=== PATIENT | female | born 1975 | race Caucasian/White ===

== ENCOUNTER → 2019-12-15 16:39 | Outpatient (CLI) | payer OTHER, SELFPAY ==
[2019-12-15 13:28] VITALS: BMI 25.0
[2019-12-21 15:00] LABS: HPV APTIMA, High Risk Negative (Negative)
== END ==
PROVIDERS: Obstetrics & Gynecology; Referring Provider Nurse Practitioner Women's Health; Visit Provider Nurse Practitioner Women's Health
DX: Z12.4 Encounter for screening for malignant neoplasm of cervix (principal)
CPT/HCPCS: 87624; 88175; G0145

== ENCOUNTER 2020-01-08 09:12 | Emergency (ER) | payer OTHER, SELFPAY ==
[2019-12-15 13:28] VITALS: BMI 25.0
[2020-01-08 09:12] VITALS: BP 172/92; PULSE 71; RESP 18; TEMP 36.6; O2SAT 100; BMI 23.6
--- NOTE | 2020-01-08 09:39 | RAD_ITS ---
STUDY: X-RAY - LUMBAR SPINE REASON FOR EXAM: Female, 44 years old. SEVERE LOW BACK PAIN AND INTO RIGHT LEG TECHNIQUE: 2 view(s) of the lumbar spine were obtained. COMPARISON: None FINDINGS: Normal lumbar lordosis. There is no substantial scoliosis. There is a normal alignment of the vertebrae. Normal vertebral bodies and endplates. Disc space height loss at L5-S1. The soft tissue structures are unremarkable. RAD/Lumbar Spine 2 or 3 Views IMPRESSION: Disc space height loss at L5-S1 Electronically Signed: Kel Pierce DO at 10:16 EST Tel , Service support ,
[2020-01-08] MEDS: Morphine 4 MG/ML Syringe IM (09:49)
--- NOTE | 2020-01-08 10:17 | ED.DCSUM_ITS ---
- ER Visit Summary Date of Service: 01/08/20 Chief Complaint: Back pain History of Present Illness: The patient is a 44 F who presents with back pain that began yesterday. Patient states she was doing some spray painting when her pain began. Patient states her pain is constant aching but sharp at times. Patient states her pain is worse with any movement. Patient states the pain is localized to the right lumbar lumbar area. Patient states the pain does radiate to her right hip and thigh area. Patient admits to some tingling in her right hip and thigh area. Patient denies any weakness. Patient denies any bowel or bladder changes. Patient denies any saddle anesthesia. Physical Examination: Vital signs are stable. Patient is afebrile. Patient is in no acute distress. Musculoskeletal exam reveals tenderness over the right lower lumbar paraspinal muscles. There is no midline tenderness. There is no bony crepitance or step-off. Range of motion was limited in all motions of the lumbar spine secondary to pain. Strength is 5/5 bilaterally in the lower extremities. There are no sensory deficits noted. Deep tendon reflexes are 2/4 bilaterally in the lower extremities. Test Results: X-rays of the lumbar spine were obtained. There are 2 views. On my interpretation, there is no acute fracture. There is no spondylolisthesis noted. Disc spaces were maintained. There is some scoliosis of the lumbar spine that is concave right. Radiologist also interpreted the x-rays and agrees. Emergency Department Course and Treatment: Patient was given injection of morphine here. Patient was given a prescription for a short course of Oatman. Patient was also given a prescription for prednisone. Patient was instructed to use ice to her low back area. Patient was instructed to follow-up with her [facility] care physician in 3 to 5 days for reevaluation. Patient understood and was agreeable with the plan. All questions were answered. Disposition: Discharge home Impression: Lumbosacral strain This note was generated with [employer] dictation software. It may contain incorrect words, spelling, and punctuation that were not noted in review of the chart prior to signing ED Disposition - Plan for ED Patient: Disposition: Home or Assisted Living Diagnosis: Acute lumbosacral myofascial strain Instructions: ED LUMBAR SPRAIN/STRAIN Prescriptions: Prednisone [Deltasone] 60 mg PO DAILY #15 tab Prescription Printed Hydrocodone Bitart/Apap 5-325 [Oatman 5MG-325MG] 1 tab PO Q6H PRN PRN 3 Days #10 tab PRN Reason: Pain Prescription Printed Referrals: [facility],Out of [Primary Care Provider] - 3-5 Days
[2020-01-08] MEDS: predniSONE 20 MG Tablet 60 MG PO (11:04)
[2020-01-08 12:08] VITALS: BP 139/82; PULSE 67; RESP 20
== END 2020-01-08 12:09 | disposition home or self-care (01) ==
PROVIDERS: Emergency Provider Emergency Medicine
DX: S39.012A Strain of muscle, fascia and tendon of lower back, initial encounter (principal); X58.XXXA Exposure to other specified factors, initial encounter; Y93.89 Activity, other specified; Y92.9 Unspecified place or not applicable; Y99.9 Unspecified external cause status
CPT/HCPCS: 72100; 96374; 99282

== ENCOUNTER → 2020-05-09 | Outpatient (CLI) | payer OTHER, SELFPAY ==
[2020-05-09 09:33] VITALS: BMI 26.4
--- NOTE | 2020-05-09 09:45 | EMB_PTH ---
PATIENT: AMINATA DAO LOC: [facility] U#:[id number] AGE/SX: 44/F ROOM: RE05/09/[address]: LAMAR Frazier : 1975 BED: DIS: 05/09/2020 SPEC #: [id number] RECD: 05/09/20 11:37 STATUS: MIKALA TANJA #: [id number] LEOLA: 05/09/20 09:[address]: Mable Mckeon NP DEPT: SURGICAL PATHOLOGY RECD BY: Victorina Quezada Tissues: Endometrium, NOS Procedures: Surgery Specimen Level IV HEADER OPERATION: Endometrial biopsy PRE-OP DIAGNOSIS: Abnormal uterine bleeding TISSUE SUBMITTED: Endometrial lining MICROSCOPIC DIAGNOSIS Endometrial biopsy: Dyssynchronous endometrium consisting of weakly proliferative and weakly secretory endometrium with focal exogenous hormone effects and glandular breakdown. Focal minimal chronic endometritis. Fragments of benign endocervical mucosa. Superficial fragment of myometrium. See comment. SJ:antwon 05/10/2020 COMMENT Clinical correlation and appropriate follow up are necessary. Case has been reviewed in consultation with Dr. Wells who concurs with the above diagnosis. IDC:AM MICROSCOPIC DESCRIPTION Slides are reviewed. GROSS DESCRIPTION Received is one container labeled with the patient's name and not further designated. The specimen consists of multiple fragments of gacria hemorrhagic soft tissue mixed with mucoid tissue that in aggregate measure 3 x 2.5 x 0.3 cm. The specimen is totally submitted in one cassette. / SJ:antwon 05/09/20 TC:5 CPT: 21230
== END | disposition home or self-care (01) ==
LOC: LABSPEC 11:56
PROVIDERS: Referring Provider Nurse Practitioner Women's Health; Visit Provider Nurse Practitioner Women's Health
DX: N93.9 Abnormal uterine and vaginal bleeding, unspecified (principal); N72 Inflammatory disease of cervix uteri
CPT/HCPCS: 88305

== ENCOUNTER → 2020-05-10 14:49 | Outpatient (CLI) | payer OTHER, SELFPAY ==
[2020-05-09 09:33] VITALS: BMI 26.4
--- NOTE | 2020-05-10 14:56 | US_ITS ---
STUDY: ULTRASOUND OF THE FEMALE PELVIS - COMPLETE REASON FOR EXAM: Female, 44 years old. Menorrhagia . Consistent bleeding for 10 days. Recent endometrial biopsy. LMP: 04/30/2020 TECHNIQUE: Transabdominal and Transvaginal TECHNICAL QUALITY: Adequate. COMPARISON: None. FINDINGS: The uterus is anteverted and is in a midline position. The uterus measures 9.1 cm x 5.2 cm x 4 cm. There is a Nabothian cyst of the cervix. The endometrium measures 4.7 mm in thickness, and is hyperechoic. There is no demonstrated endometrial mass. The uterus is of heterogeneous echotexture suggesting fibroid change. I.U.D. - The patient does not have an I.U.D. The right ovary is visualized. The right ovary measures 2.2 cm x 1.4 cm x 1.1 cm. There is no right ovarian cyst or ovarian mass. There is no visualized right adnexal mass or complex lesion. There is normal arterial and normal venous vascularity. The left ovary is visualized. The left ovary measures 5.2 cm x 4.1 cm x 3.1 cm. There are 2 ovarian cysts seen within the left ovary. One cyst measures 2.5 cm x 2.1 cm x 2.9 cm. The second cyst measures 2.6 cm x 1.9 cm x 3 cm. There is no visualized left adnexal mass or complex lesion. There is normal arterial and normal venous vascularity. There is no fluid in the cul-de-sac. The pre void volume of the bladder was 527 ml. The post void volume of the bladder was ml. US/Transvaginal Non- IMPRESSION: Heterogeneous echotexture of the uterus. 2. Left ovarian cysts. Electronically Signed: Ash Martínez MD at 14:19 EDT , Service support ,
--- NOTE | 2020-05-10 14:56 | US_ITS ---
STUDY: ULTRASOUND OF THE FEMALE PELVIS - COMPLETE REASON FOR EXAM: Female, 44 years old. Menorrhagia . Consistent bleeding for 10 days. Recent endometrial biopsy. LMP: 04/30/2020 TECHNIQUE: Transabdominal and Transvaginal TECHNICAL QUALITY: Adequate. COMPARISON: None. FINDINGS: The uterus is anteverted and is in a midline position. The uterus measures 9.1 cm x 5.2 cm x 4 cm. There is a Nabothian cyst of the cervix. The endometrium measures 4.7 mm in thickness, and is hyperechoic. There is no demonstrated endometrial mass. The uterus is of heterogeneous echotexture suggesting fibroid change. I.U.D. - The patient does not have an I.U.D. The right ovary is visualized. The right ovary measures 2.2 cm x 1.4 cm x 1.1 cm. There is no right ovarian cyst or ovarian mass. There is no visualized right adnexal mass or complex lesion. There is normal arterial and normal venous vascularity. The left ovary is visualized. The left ovary measures 5.2 cm x 4.1 cm x 3.1 cm. There are 2 ovarian cysts seen within the left ovary. One cyst measures 2.5 cm x 2.1 cm x 2.9 cm. The second cyst measures 2.6 cm x 1.9 cm x 3 cm. There is no visualized left adnexal mass or complex lesion. There is normal arterial and normal venous vascularity. There is no fluid in the cul-de-sac. The pre void volume of the bladder was 527 ml. The post void volume of the bladder was ml. US/Pelvic (Non ) IMPRESSION: Heterogeneous echotexture of the uterus. 2. Left ovarian cysts. Electronically Signed: Ash Martínez MD at 14:19 EDT , Service support ,
== END ==
PROVIDERS: Referring Provider Nurse Practitioner Women's Health; Visit Provider Nurse Practitioner Women's Health
DX: N92.1 Excessive and frequent menstruation with irregular cycle (principal); N83.202 Unspecified ovarian cyst, left side
CPT/HCPCS: 76830; 76856

== ENCOUNTER → 2020-06-05 09:00 | Outpatient (CLI) | payer OTHER, SELFPAY ==
[2020-05-09 09:33] VITALS: BMI 26.4
--- NOTE | 2020-06-05 09:20 | RAD_ITS ---
STUDY: X-RAY - ESOPHAGUS (BARIUM SWALLOW) WITH FLUOROSCOPY REASON FOR EXAM: Female, 44 years old. DYSPHAGIA TECHNIQUE: 17 view(s) of the esophagus were obtained following swallowing of barium. FLUOROSCOPY TIME (if supplied): (24 seconds) minutes/seconds COMPARISON: None. FINDINGS: There is no demonstrated esophageal foreign body. There is no demonstrated stricture or mucosal abnormality. Normal gastroesophageal junction, without a demonstrated hiatal hernia. The patient ingested a 12 mm tablet of barium without any difficulty. Normal visualized aortic arch and descending thoracic aorta. Normal visualized pulmonary parenchyma. Normal visualized osseous structures of the thorax. RAD/Esophagus Dual Contrast IMPRESSION: Normal plain film x-ray examination (barium swallow) of the esophagus. Electronically Signed: Ash Martínez MD at 9:47 EDT , Service support ,
== END ==
PROVIDERS: Referring Provider Internal Medicine Gastroenterology; Visit Provider Internal Medicine Gastroenterology
DX: R13.10 Dysphagia, unspecified (principal)
CPT/HCPCS: 74221

== ENCOUNTER 2020-06-14 16:41 | Emergency (ER) | payer OTHER, SELFPAY ==
[2020-05-09 09:33] VITALS: BMI 26.4
[2020-06-14 16:41] VITALS: BP 145/105; PULSE 75; RESP 16; TEMP 35.2; O2SAT 98; BMI 25.0
--- NOTE | 2020-06-14 17:49 | CT_ITS ---
EXAM: CT LEFT UPPER EXTREMITY WITHOUT INTRAVENOUS CONTRAST : 1975 CLINICAL INDICATION: Bicep tear TECHNIQUE: Helically acquired images were obtained of the left upper extremity without intravenous contrast. 2-D reformats were performed by the technologist. This CT exam was performed using one or more of the following dose reduction techniques: automated exposure control, adjustment of the mA and/or kV according to patient size, and/or use of iterative reconstruction technique. This report was created using [employer] technology. COMPARISON: None. FINDINGS: BONES/JOINTS: Unremarkable. No acute fracture. No subluxation. Normal alignment. Preservation of the joint space. No sclerotic or destructive changes. SOFT TISSUES: Unremarkable. No soft tissue swelling or gas. No radiopaque foreign body. There is no fluid or inflammation. CT/Extremity Upper without Contra IMPRESSION: No acute fracture or subluxation. If indicated further evaluation with MRI may be beneficial. Individualized dose optimization techniques were used for this CT. at 1806 Reported and signed by: Andrés Lake MD Electronically Signed: Andrés Lake MD at 18:05 EDT Tel , Service support ,
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
== END 2020-06-14 18:45 | disposition home or self-care (01) ==
PROVIDERS: Emergency Provider Emergency Medicine
DX: S46.212A Strain of muscle, fascia and tendon of other parts of biceps, left arm, initial encounter (principal); X58.XXXA Exposure to other specified factors, initial encounter; Y93.9 Activity, unspecified; Y92.9 Unspecified place or not applicable; Y99.9 Unspecified external cause status
CPT/HCPCS: 73200; 99282

== ENCOUNTER → 2020-07-03 | Outpatient (CLI) | payer OTHER, SELFPAY ==
[2020-06-14 16:41] VITALS: BMI 25.0
--- NOTE | 2020-07-03 10:30 | EGD_PTH ---
PATIENT: AMINATA DAO LOC: [facility] U#:[id number] AGE/SX: 44/F ROOM: RE07/03/[address]: Dr. Mitchell Monte MD : 1975 BED: DIS: 07/03/2020 SPEC #: [id number] RECD: 07/03/20 15:08 STATUS: MIKALA REMartin #: [id number] LEOLA: 07/03/20 10:[address]: Mitchell Monte DEPT: SURGICAL PATHOLOGY RECD BY: Victorina Quezada ENTERED: 07/04/20 08:24 SP TYPE: EGD BIOPSY OT DR: AMY Tissues: Esophagus, NOS Procedures: Surgery Specimen Level IV HEADER OPERATION: EGD with biopsy PRE-OP DIAGNOSIS: Dysphagia TISSUE SUBMITTED: Esophageal biopsy, rule out EE MICROSCOPIC DIAGNOSIS Esophagus, biopsy: Fragments of squamous epithelium with focal changes consistent with eosinophilic esophagitis. See comment. ELVIA:antwon 07/05/2020 COMMENT Focal increased number of eosinophils (~20 per high power field) are noted consistent with eosinophilic esophagitis. A fragment of unremarkable gastric epithelium is also noted. Correlation with clinical, endoscopic findings and appropriate follow up are necessary. MICROSCOPIC DESCRIPTION Slides are reviewed. GROSS DESCRIPTION Received in fixative is one container labeled with the patient's name and designated esophagus biopsy. The specimen consists of multiple irregular fragments of light garcia soft tissue that in aggregate measure 1 x 0.5 x 0.1 cm. The specimen is totally submitted in one cassette. / SJ:antwon 07/04/20 TC:5 CPT: 31524
== END | disposition home or self-care (01) ==
LOC: LABSPEC 16:10
PROVIDERS: Visit Provider Internal Medicine Gastroenterology
DX: R13.10 Dysphagia, unspecified (principal)
CPT/HCPCS: 88305

== ENCOUNTER → 2020-12-22 14:32 | Outpatient (CLI) | payer OTHER, SELFPAY ==
--- NOTE | 2020-12-22 14:34 | BI_ITS ---
MAMMOGRAPHY - BILATERAL SCREENING REASON FOR EXAM: Female, 45 years old. Routine annual screening examination. PERTINENT HISTORY: Non-contributory. TECHNIQUE: Digital bilateral breast shayy (3D mammographic acquisition) in the CC and MLO projections. 2-D mediolateral oblique (MLO) and craniocaudad (CC) views of both breasts were obtained. CAD: Full Field Digital Mammography with Computer Added Detection was performed. COMPARISON: Comparison is made with prior outside examination dated 03/26/2019. FINDINGS: Breast Composition: The breasts are heterogeneously dense, which may obscure small masses. There are no dominant masses or suspicious calcifications. Stable small benign-appearing bilateral axillary lymph nodes. No other significant abnormalities are identified. There has been no significant change since the prior study. BI/SCRN MAMM (CAD)W/SHAYY BILAT IMPRESSION: Stable bilateral screening mammogram. Yearly follow-up mammogram recommended. (A) ASSESSMENT CATEGORY: BIRADS Category 2: Benign. A letter regarding these results will be sent to the patient by the facility within 30 days. Approximately 10% of breast cancers are not detected by mammography. A normal mammogram should not delay biopsy of a clinically suspicious abnormality. [id number] Electronically Signed: Ash Martínez MD at 15:43 EST , Service support ,
== END ==
PROVIDERS: Referring Provider Obstetrics & Gynecology; Visit Provider Obstetrics & Gynecology
DX: Z12.31 Encounter for screening mammogram for malignant neoplasm of breast (principal)
CPT/HCPCS: 77063; 77067

== ENCOUNTER → 2021-08-06 | Outpatient (CLI) | payer OTHER, SELFPAY | END | disposition home or self-care (01) | PROVIDERS: Visit Provider Obstetrics & Gynecology | DX: N89.8 Other specified noninflammatory disorders of vagina (principal) | CPT/HCPCS: 87070; 87205 ==

== ENCOUNTER → 2021-12-28 | Outpatient (CLI) | payer OTHER, SELFPAY ==
--- NOTE | 2021-12-28 09:35 | BI_ITS ---
MAMMOGRAPHY - BILATERAL SCREENING REASON FOR EXAM: Female, 46 years old. Routine annual screening examination. PERTINENT HISTORY: Non-contributory. TECHNIQUE: Digital bilateral breast shayy (3D mammographic acquisition) in the CC and MLO projections. 2-D mediolateral oblique (MLO) and craniocaudad (CC) views of both breasts were obtained. CAD: Full Field Digital Mammography with Computer Added Detection was performed. COMPARISON: Comparison is made with prior study dated 12/22/2020. FINDINGS: Breast Composition: The breasts are heterogeneously dense, which may obscure small masses. There are no dominant masses or suspicious calcifications. No other significant abnormalities are identified. There has been no significant change since the prior study. BI/SCRN MAMM (CAD)W/SHAYY BILAT IMPRESSION: Stable bilateral screening mammogram. Yearly follow-up mammogram recommended. (A) ASSESSMENT CATEGORY: BIRADS Category 1: Negative. A letter regarding these results will be sent to the patient by the facility within 30 days. Approximately 10% of breast cancers are not detected by mammography. A normal mammogram should not delay biopsy of a clinically suspicious abnormality. [id number] Electronically Signed: Ash Martínez MD at 10:53 EST ,
== END | disposition home or self-care (01) ==
LOC: OPBI 09:34
PROVIDERS: Visit Provider Obstetrics & Gynecology
DX: Z12.31 Encounter for screening mammogram for malignant neoplasm of breast (principal)
CPT/HCPCS: 77063; 77067

== ENCOUNTER 2022-04-07 17:01 | Emergency (ER) | payer OTHER, SELFPAY ==
[2022-04-07 17:02] VITALS: BP 156/82; PULSE 62; RESP 14; TEMP 36.6; O2SAT 100; BMI 26.6
--- NOTE | 2022-04-07 17:17 | CT_ITS ---
INDICATION: trauma EXAMINATION: CT Maxillofacial W/O Contrast Injection TECHNIQUE: Helically acquired images were obtained of the facial bones. A radiation dose optimization technique was used for this scan. IV Contrast dosage and agent: None. COMPARISON: None. FINDINGS: SOFT TISSUES: No focal subcutaneous swelling. No discrete fluid collections. VISUALIZED PARANASAL SINUSES: Clear. VISUALIZED MASTOID AIR CELLS: Clear. FACIAL BONES, MANDIBLE AND TMJs: No displaced facial bone fracture. No lytic or blastic abnormality. VISUALIZED DENTITION: No periodontal osseous erosion. ORBITAL CONTENTS: Both globes, extraocular muscles and retrobulbar fat appear unremarkable. CT/Sinus/Facial Bone IMPRESSION: Unremarkable CT of the facial bones. Electronically Signed: Salazar Perry MD at 18:28 EST ,
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
--- NOTE | 2022-04-07 17:38 | EX.ED.DYSGE1 ---
HPI <LAMAR Robison - Last Filed: 04/07/22 19:07> History of Present Illness Chief Complaint: Head Injury Narrative Narrative: 46-year-old female with history of hypertension, presents to the emergency department with facial injury, head injury. Patient was helping her cut branches, when a branch fell, striking her in the left side of the face. Patient states that she felt like she lost vision, felt very unsteady and continues to feel nauseous. Patient has edema to her upper lip as well as a 2 cm laceration to the left eyebrow. Per her , she is slow to respond, they did have some alcohol use today in between cutting down branches. Patient states she only drank 2 beers. Patient was at urgent care however they referred her to the emergency department. [facility] <LAMAR Robison - Last Filed: 04/07/22 19:07> [facility] Medical History (Updated 04/07/22 @ 19:07 by LAMAR Robison) Ganglion cyst History of depression Hypertension Ovarian cyst Home Medications cholecalciferol (vitamin D3) 250 mcg (10,000 unit) capsule 250 mcg PO QWEEK 12/15/19 [History Last Taken Unknown] cyanocobalamin (vitamin B-12) 1,000 mcg capsule 1,000 mcg PO DAILY 12/15/19 [History Last Taken Unknown] olmesartan 20 mg tablet (Benicar) 20 mg PO DAILY 12/15/19 [History Last Taken Unknown] tizanidine 6 mg capsule 6 mg PO QHS 12/15/19 [History Last Taken Unknown] cetirizine 10 mg capsule (Zyrtec) 10 mg PO DAILY PRN 11/16/21 [History Last Taken Unknown] ivermectin 1 % topical cream 1 applic topical DAILY 11/16/21 [History Last Taken Unknown] nirmatrelvir 300 mg (150 mg x2)-ritonavir 100 mg tablet,dose pack(EUA) (Paxlovid) See Rx Instructions PO .COMPLEX #30 tabs 11/16/21 [Rx Last Taken Unknown] oxymetazoline 1 % topical cream (Rhofade) 1 applic topical DAILY 11/16/21 [History Last Taken Unknown] gabapentin 100 mg capsule 100 mg PO DAILY 12/28/21 [History Last Taken Unknown] medroxyprogesterone 10 mg tablet (Provera) 10 mg PO QDAY #10 tabs 12/28/21 [Rx Last Taken Unknown] fluconazole 150 mg tablet 150 mg PO ONCE #1 TAB 03/28/22 [Rx Last Taken Unknown] Allergy/AdvReac Type Severity Reaction Status Date / Time clarithromycin [From Biaxin] Allergy Mild other Verified 04/07/22 17:05 erythromycin base Allergy Mild other Verified 04/07/22 17:05 [From Erythrocin] Family History Mother Bladder cancer Aunt Cancer appendix Father Cancer stomach Suicide Surgical History Hx of appendectomy Social History Smoking Status: Never smoker alcohol intake: current details: social substance use type: does not use caffeine: Yes what type of physical activity do you participate in: walking seatbelt use: always do you feel safe at home: Yes additional social history: [employer]- [employer] 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 Patient does have some top lip edema, ecchymosis Cardiovascular: Negative for any chest pain, tightness, palpitations Respiratory: Negative for any cough, sputum production, hemoptysis, dyspnea, dyspnea on exertion, orthopnea Gastrointestinal: Negative for any abdominal pain, vomiting, diarrhea, constipation, blood in stool, blood in vomit. Positive for nausea : Negative for any urinary frequency, dysuria, retention, blood in urine Muscle skeletal: Negative for any muscle joint pain, stiffness, myalgias, arthralgias, neck pain, back pain Neurological: Negative for any syncope, numbness or tingling, dizziness. Positive for headache Skin: Negative for any rashes, lumps, itching. Positive for abrasion to the upper lip, positive for 2 cm laceration above the left eye Psychiatric: Negative for any depression, anxiety, stress, suicidal ideation, homicidal ideation Hematologic: Negative for any easy bruising, excessive bruising, easy bleeding Allergies: Negative for any eczema, hives, rash EXAM <LAMAR Robison - Last Filed: 04/07/22 19:07> Physical Exam Narrative Exam Narrative: Vital signs reviewed. Patient does have a slight flushed appearance, patient does states she has rosacea. HEET: Head normocephalic atraumatic, TMs clear bilaterally. Posterior pharynx is clear, moist mucous membranes. Nares clear bilaterally. Pupils are equal round reactive to light. Negative for any hemotympanum, negative for any septal hematoma. Patient does have ecchymosis, abrasion, slight edema to the upper lip. There is no laceration noted. Patient has a 2 cm laceration to the left eyebrow. No evidence of any orbital bone fracture. Neck: Supple with no lymphadenopathy or tenderness. No signs of meningismus, negative jolt sign. Cardiac: Regular rate and rhythm no murmurs gallops or rubs, equal peripheral pulses bilaterally. Respiratory: Lungs clear to auscultation bilaterally. No chest tenderness. Abdomen: Soft, nontender, nondistended. No abdominal bruit or pulsatile masses. No hepatosplenomegaly Extremities: No peripheral edema, no signs of gross trauma or deformity. Active full range of motion of all extremities. Neuro: Cranial nerves II through XII intact, no focal neurological deficits. Skin: Clean dry and intact with no rash, purpura, petechiae, vesicles or pustules. Backs/flank: No CVA tenderness, no midline spinal tenderness, no deformity. Psych: Normal mood and affect. No SI, HI or acute psychosis. Const Vital Signs: 04/07/22 17:02 04/07/22 18:02 04/07/22 19:22 Temperature 97.8 F 98.2 F Temperature Source Temporal Temporal Pulse Rate 62 80 Respiratory Rate 14 17 Respiratory Effort Normal Respiratory Pattern Normal Blood Pressure 156/82 H 132/74 H Blood Pressure Mean 106 93 Pulse Ox 100 99 Oxygen Delivery Method Room Air Room Air 04/07/22 19:26 Temperature Temperature Source Pulse Rate 67 Respiratory Rate 15 Respiratory Effort Respiratory Pattern Blood Pressure 130/74 H Blood Pressure Mean Pulse Ox 99 Oxygen Delivery Method Positive well nourished and well developed General Appearance ED: well developed <Luis Schneider MD - Last Filed: 04/08/22 00:04> Physical Exam Const Vital Signs: 04/07/22 17:02 04/07/22 18:02 04/07/22 19:22 Temperature 97.8 F 98.2 F Temperature Source Temporal Temporal Pulse Rate 62 80 Respiratory Rate 14 17 Respiratory Effort Normal Respiratory Pattern Normal Blood Pressure 156/82 H 132/74 H Blood Pressure Mean 106 93 Pulse Ox 100 99 Oxygen Delivery Method Room Air Room Air 04/07/22 19:26 Temperature Temperature Source Pulse Rate 67 Respiratory Rate 15 Respiratory Effort Respiratory Pattern Blood Pressure 130/74 H Blood Pressure Mean Pulse Ox 99 Oxygen Delivery Method MDM <LAMAR Robison - Last Filed: 04/07/22 19:07> MDM Radiography Diagnostic Testing: Clinical Impression(s) from Imaging Studies Brain CT 04/07/22 17:17 IMPRESSION: No acute intracranial abnormality. Electronically Signed: Salazar Perry MD at 18:26 EST , Facial/Sinus 04/07/22 17:17 IMPRESSION: Unremarkable CT of the facial bones. Electronically Signed: Salazar Perry MD at 18:28 EST , Treatment and Re-Evaluation Narrative: All radiologic examinations were read, reviewed by the emergency department attending. From these reads, a plan of care will be put in place. Patient appears generally well, patient is in no distress. Patient presents the emergency department with facial injury, head injury after a branch struck her in the left side of her face. Patient has bruising to the upper lip as well as a laceration to the left eyebrow. Secondary to the patient's intoxication, head injury, patient received a CT scan of the brain as well as a CT scan of the facial bones. These were grossly unremarkable any acute process. Consider CT scan of the neck, patient had no neck pain and I do not feel it is necessary. Patient's tetanus vaccination was up-to-date. I was able to irrigate the left eyebrow wound. Anesthetized. Sterile gloves, sterile drapes were used. I did place 4 simple interrupted sutures of 6-0 Ethilon. Patient tolerated well. Edges approximate nicely. She will have these removed in 5 to 7 days. Patient was given education regarding concussion, wound care. was bedside and had no other questions. Patient is stable for discharge. She will take ibuprofen, Tylenol for home. <Luis Schneider MD - Last Filed: 04/08/22 00:04> [facility] Narrative Medical decision making narrative: I have personally performed a face to face assessment of the patient and have reviewed the REMIGIO Note. I performed a substantive portion of the visit including all aspects of the following. My wolff findings include: History is hit in face with a tree limb while proning. Laceration to left eyebrow and contusion to upper lip Exam is GCS 15. ABCs intact. Positive laceration left eyebrow. Mild swelling upper lip near midline. Medical Decision Making check CTs. Laceration repair. Symptomatic treatment for lip contusion. Discharge. Other additions or changes: [None] Radiography Diagnostic Testing: Clinical Impression(s) from Imaging Studies Brain CT 04/07/22 17:17 IMPRESSION: No acute intracranial abnormality. Electronically Signed: Salazar Perry MD at 18:26 EST , Facial/Sinus 04/07/22 17:17 IMPRESSION: Unremarkable CT of the facial bones. Electronically Signed: Salazar Perry MD at 18:28 EST , Procedures <LAMAR Robison - Last Filed: 04/07/22 19:07> Lacerations Facial laceration: Length: 0.59 in Depth: Skin Shape: Linear Irrigated (ml): 100 Number of Sutures/[place]: 4 Suture Information: Ethilon and 6-0 Comment: Sterile gloves, sterile drapes were used. Discharge Plan Triage Chief Complaint: Head Injury ED Midlevel Provider: Wood Daugherty ED Provider: Luis Schneider Dx/Rx/DC Orders Clinical Impression: Head injury, Hematoma, Face lacerations Prescriptions: No Action olmesartan [Benicar] 20 mg tablet 20 mg PO DAILY tizanidine 6 mg capsule 6 mg PO QHS cholecalciferol (vitamin D3) 250 mcg (10,000 unit) capsule 250 mcg PO QWEEK cyanocobalamin (vitamin B-12) 1,000 mcg capsule 1,000 mcg PO DAILY gabapentin 100 mg capsule 100 mg PO DAILY medroxyprogesterone [Provera] 10 mg tablet 10 mg PO QDAY Qty: 10 9RF Zyrtec 10 mg capsule 10 mg PO DAILY PRN Rhofade 1 % cream 1 applic topical DAILY ivermectin 1 % cream 1 applic topical DAILY Paxlovid (EUA) 300 mg (150 mg x 2)-100 mg tablets,dose pack See Rx Instructions PO .COMPLEX Qty: 30 0RF Rx Instructions: take TWO 150 mg tablets of nirmatrelvir with ONE 100 mg tablet of ritonavir twice daily for 5 days PO fluconazole 150 mg tablet 150 mg PO ONCE Qty: 1 0RF Rx Instructions: as a single dose Primary Care Provider: GALILEA LESLIE Referrals: GALILEA LESLIE [Other] Activity Restrictions/Additional Instructions: Have your sutures removed in 5 to 7 days. Make sure you ice your lip. Disposition Disposition: Home, Self Care Discharge Date/Time: 04/07/22 19:27
[2022-04-07] MEDS: Diphth,Pertuss(Acell),Tet Vac 0.5 ML Vial IM (17:59)
[2022-04-07 19:22] VITALS: BP 132/74; PULSE 80; RESP 17; TEMP 36.8; O2SAT 99
[2022-04-07 19:26] VITALS: BP 130/74; PULSE 67; RESP 15; O2SAT 99
== END 2022-04-07 19:27 | disposition home or self-care (01) ==
PROVIDERS: Emergency Provider Emergency Medicine; Visit Provider Emergency Medicine
DX: S01.81XA Laceration without foreign body of other part of head, initial encounter (principal); Z23 Encounter for immunization; X58.XXXA Exposure to other specified factors, initial encounter
CPT/HCPCS: 70450; 70486; 90471; 90715; 99282

== ENCOUNTER → 2023-01-23 | Outpatient (CLI) | payer OTHER, SELFPAY ==
--- NOTE | 2023-01-23 08:59 | BI_ITS ---
MAMMOGRAPHY - BILATERAL SCREENING REASON FOR EXAM: Female, 47 years old. Routine annual screening examination. PERTINENT HISTORY: Non-contributory. TECHNIQUE: Digital bilateral breast shayy (3D mammographic acquisition) in the CC and MLO projections. 2-D mediolateral oblique (MLO) and craniocaudad (CC) views of both breasts were obtained. CAD: Full Field Digital Mammography with Computer Added Detection was performed. COMPARISON: Comparison is made with prior study dated December 28, 2021 and December 22, 2020. FINDINGS: Breast Composition: The breasts are heterogeneously dense, which may obscure small masses. There are no dominant masses or suspicious calcifications. No other significant abnormalities are identified. There has been no significant change since the prior study. BI/SCRN MAMM (CAD)W/SHAYY BILAT IMPRESSION: Stable bilateral screening mammogram. Yearly follow-up mammogram recommended. (A) ASSESSMENT CATEGORY: BIRADS Category 1: Negative. A letter regarding these results will be sent to the patient by the facility within 30 days. Approximately 10% of breast cancers are not detected by mammography. A normal mammogram should not delay biopsy of a clinically suspicious abnormality. [id number] Electronically Signed: Ash Martínez MD at 10:07 EST ,
== END | disposition home or self-care (01) ==
LOC: OPBI 08:58
PROVIDERS: Referring Provider Obstetrics & Gynecology; Visit Provider Obstetrics & Gynecology
DX: Z12.31 Encounter for screening mammogram for malignant neoplasm of breast (principal)
CPT/HCPCS: 77063; 77067

== ENCOUNTER 2023-04-20 10:51 | Emergency (ER) | payer BC, SELFPAY ==
[2023-04-20 10:53] VITALS: BP 114/65; PULSE 104; RESP 16; TEMP 36.4; O2SAT 100; BMI 22.3
[2023-04-20 10:55] VITALS: BP 114/65; PULSE 104; RESP 16; TEMP 36.4; O2SAT 100
--- NOTE | 2023-04-20 11:02 | EDS_ITS ---
HPI History of Present Illness Chief Complaint: Nausea/Vomiting Informant: patient Onset/Context/Timing Onset: Today Narrative Narrative: Patient presents secondary to nausea and vomiting since 4 AM today. She is a history of chronic gastritis. She states typically if she can get Zofran to stay in her this will calm down her vomiting, but today she was vomiting it back up. She did note some black stool today as well. She believes her last endoscopy was in October of last year at which time she was found to have some gastric erosions and bleeding. She is on pantoprazole daily. She follows with a GI doctor in [place]. [facility] Medical History (Updated 04/20/23 @ 12:[address] Paola Ramírez MD) Chronic gastritis Ganglion cyst History of depression Hypertension Ovarian cyst Home Medications cholecalciferol (vitamin D3) 250 mcg (10,000 unit) capsule 250 mcg PO QWEEK 12/15/19 [History Last Taken Unknown] cyanocobalamin (vitamin B-12) 1,000 mcg capsule 1,000 mcg PO DAILY 12/15/19 [History Last Taken Unknown] olmesartan 20 mg tablet (Benicar) 20 mg PO DAILY 12/15/19 [History Last Taken Unknown] tizanidine 6 mg capsule 6 mg PO QHS 12/15/19 [History Last Taken Unknown] cetirizine 10 mg capsule (Zyrtec) 10 mg PO DAILY PRN allergic symptoms 11/16/21 [History Last Taken Unknown] ivermectin 1 % topical cream 1 applic topical DAILY 11/16/21 [History Last Taken Unknown] bupropion HCl 150 mg tablet,12 hr sustained-release (Wellbutrin SR) 150 mg PO DAILY 01/23/23 [History Last Taken Unknown] bupropion HCl 300 mg 24 hr tablet, extended release (Wellbutrin XL) 300 mg PO QAM 01/23/23 [History Last Taken Unknown] oxymetazoline 1 % topical cream (Rhofade) 1 applic topical DAILY PRN rash 01/23/23 [History Last Taken Unknown] pantoprazole 40 mg granules delayed-release for susp in packet 20 mg PO DAILY 01/23/23 [History Last Taken Unknown] ondansetron 4 mg disintegrating tablet 4 mg PO Q8H PRN PRN Nausea #10 tabs 04/20/23 [Rx Last Taken Unknown] sucralfate 1 gram tablet (Carafate) 1 g PO BID #10 tabs 04/20/23 [Rx Last Taken Unknown] Allergy/AdvReac Type Severity Reaction Status Date / Time clarithromycin [From Biaxin] Allergy Mild other Verified 04/20/23 10:55 erythromycin base Allergy Mild other Verified 04/20/23 10:55 [From Erythrocin] Family History Mother Bladder cancer Aunt Cancer appendix Father Cancer stomach Suicide Grandmother Cancer abdom. 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 ED Constitutional Constitutional ED: Denies chills or fever(s) Eyes Eyes: Denies discharge from eye(s) ENT ENT ED: Denies discharge from eye(s), rhinorrhea or sore throat Cardiovascular Cardiovascular: Denies chest pain Respiratory/Chest Respiratory/Chest: Denies cough or dyspnea Gastrointestinal Gastrointestinal: Reports abdominal pain, melena, nausea and vomiting Genitourinary Genitourinary ED: Denies dysuria Musculoskeletal Musculoskeletal: Denies back pain or extremity pain Integumentary Denies Abrasions or rash Neurologic Neurologic: Denies headache(s) or weakness Allergic/Immunologic Allergic/Immunologic ED: Denies lip swelling or urticaria EXAM Physical Exam Const Vital Signs: 04/20/23 10:53 04/20/23 10:55 Temperature 97.5 F L 97.5 F L Temperature Source Temporal Temporal Pulse Rate 104 H 104 H Respiratory Rate 16 16 Blood Pressure 114/65 114/65 Blood Pressure Mean 81 81 Pulse Ox 100 100 Oxygen Delivery Method Room Air Room Air Positive well nourished and well developed General Appearance ED: well developed HEENT Reports moist mucous membranes Eyes EOMs intact bilaterally Chest Wall inspection of chest normal and palpation of chest normal Resp normal respiratory effort and clear to auscultation bilaterally Cardio regular rate and regular rhythm GI GI Narrative: Abdomen soft with mild tenderness in the epigastrium. No guarding or rebound. Hypoactive but present bowel sounds noted. Extremity normal to inspection Neuro oriented x3 and no sensory deficits noted Motor Exam: strength 5/5 throughout Psych mental status grossly normal Skin no rashes or lesions noted MDM MDM MDM Narrative Medical decision making narrative: IV line established. Patient given IV fluids along with Zofran and Protonix. Labwork obtained to evaluate for leukocytosis, anemia, and electrolyte derangement. Stool guaiac will be obtained given her report of black stools today. Lab Data Attestation: I reviewed the patient's lab results. Labs: Laboratory Results - last 24 hr 04/20/23 04/20/23 04/20/23 11:24 11:24 11:40 WBC Cancelled 13.2 H Corrected WBC Cancelled RBC Cancelled 3.60 L Hgb Cancelled 11.8 L Hct Cancelled 35.5 L MCV Cancelled 98.6 MCH Cancelled 32.8 H MCHC Cancelled 33.2 RDW Std Deviation Cancelled 43.2 RDW Coeff of Jeanie Cancelled 11.9 Plt Count Cancelled 364 MPV Cancelled 9.3 Immature Gran % (Auto) Cancelled 0.300 Neut % (Auto) Cancelled 94.8 H Lymph % (Auto) Cancelled 1.4 L [place] % (Auto) Cancelled 3.2 Eos % (Auto) Cancelled 0.1 Baso % (Auto) Cancelled 0.2 Absolute Neuts (auto) Cancelled 12.6 H Absolute Lymphs (auto) Cancelled 0.18 L Total Counted Cancelled Neutrophils % (Manual) Cancelled Band Neutrophils % Cancelled Lymphocytes % (Manual) Cancelled Monocytes % (Manual) Cancelled Eosinophils % (Manual) Cancelled Basophils % (Manual) Cancelled Metamyelocytes % Cancelled Myelocytes % Cancelled Promyelocytes % Cancelled Blast Cells % Cancelled Plasma Cell % (Manual) Cancelled Other Cells % Cancelled Nucleated RBC % Cancelled 0 Nucleated RBCs/100 WBC Cancelled Differential Comment Cancelled Diff Path Review Cancelled Hypersegmented Neuts Cancelled Atypical Lymphocytes Cancelled Reactive Lymphocytes Cancelled Smudge Cells Cancelled Toxic Granulation Cancelled Toxic Vacuolation Cancelled Dohle Bodies Cancelled Kristen Rods Cancelled Platelet Estimate Cancelled ADEQUATE Plt Morphology Comment Cancelled RBC Morphology Cancelled Cancelled NORM C+C Polychromasia Cancelled Hypochromasia Cancelled Basophilic Stippling Cancelled Anisocytosis Cancelled Microcytosis Cancelled Macrocytosis Cancelled Spherocytes Cancelled Sickle Cells Cancelled Target Cells Cancelled Tear Drop Cells Cancelled Ovalocytes Cancelled Stomatocytes Cancelled Khan-Hawthorne Bodies Cancelled Andrew Cells Cancelled Bite Cells Cancelled Crenated Cell Cancelled Acanthocytes (Spur) Cancelled Rouleaux Cancelled Schistocytes Cancelled Sodium 138 Potassium 3.9 Chloride 105 Carbon Dioxide 24.0 Anion Gap 9 BUN 10 Creatinine 0.65 Estim Creat Clear Calc 105.61 Est GFR (MDRD) Af Amer 124 Est GFR (MDRD) Non-Af 102 BUN/Creatinine Ratio 15.3 Glucose 143 H Calcium 9.2 Total Bilirubin 0.70 Direct Bilirubin 0.19 AST 21 ALT 24 Alkaline Phosphatase 81 Total Protein 6.8 Albumin 3.6 Globulin 3.2 Lipase 23 Treatment and Re-Evaluation :: CBC shows a white count of 13.2 with 94% neutrophils (likely demargination from vomiting. Her hemoglobin is 11.8. I was not able to find any prior lab values either on prior visits here or in [facility]. She states she knows her numbers are always just slightly off but not significant. Her chemistry studies are unremarkable with normal BUN. Glucose is 143. LFTs and lipase are normal. Stool guaiac is performed and is negative. On repeat evaluation patient does feel improved. I will write her Zofran ODT as she does not currently have dissolvable tablets. I will also write her Carafate. She states they are in the process of selling their home in [place] and is considering getting a GI doctor here locally. I will refer her to Dr. Holt. Return instructions are given. Discharge Plan Triage Chief Complaint: Nausea/Vomiting ED Provider: Paola Ramírez Dx/Rx/DC Orders Clinical Impression: Epigastric pain, Vomiting Instructions: ED Vomiting (Adult), ED Epigastric Pain Uncertain Cause Prescriptions: New ondansetron 4 mg tablet,disintegrating 4 mg PO Q8H PRN PRN (Reason: Nausea) Qty: 10 0RF sucralfate [Carafate] 1 gram tablet 1 g PO BID Qty: 10 0RF No Action olmesartan [Benicar] 20 mg tablet 20 mg PO DAILY tizanidine 6 mg capsule 6 mg PO QHS cholecalciferol (vitamin D3) 250 mcg (10,000 unit) capsule 250 mcg PO QWEEK cyanocobalamin (vitamin B-12) 1,000 mcg capsule 1,000 mcg PO DAILY Zyrtec 10 mg capsule 10 mg PO DAILY PRN (Reason: allergic symptoms) ivermectin 1 % cream 1 applic topical DAILY Rhofade 1 % cream 1 applic topical DAILY PRN (Reason: rash) pantoprazole [address] for susp in packet 20 mg PO DAILY bupropion HCl [Wellbutrin XL] 300 mg tablet extended release 24 hr 300 mg PO QAM bupropion HCl [Wellbutrin SR] 150 mg tablet sustained-release 12 hr 150 mg PO DAILY Primary Care Provider: Care Physician,No Primary Referrals: GALILEA LESLIE [Other] Friend,DO Conrad [Med Staff - Active Staff] - As Needed Disposition Disposition: Home, Self Care
[2023-04-20] MEDS: Ondansetron 4 MG/2 ML Vial IV (11:18)
[2023-04-20] MEDS: 0.9% Normal Saline (1000mL) 1,000 ML 1000 ML IV (11:18)
[2023-04-20] MEDS: Pantoprazole Sodium 40 MG in 0.9% Normal Saline (100mL MB+) 100 ML 330 MG IV (11:33)
--- NOTE | 2023-04-20 11:39 | NURSING ---
PER LAB, CBCD CLOTTED
--- OUTSIDE RECORDS SUMMARY | 2023-04-20 11:39 | XMS RPT_ITS | CCD ---
Author Name Unknown Address [address] [place] [address] Organization [facility] Care Team Providers Care Ignition Specialist Name Role Phone Galilea Whitaker Unavailable Unavailable Unavailable Unavailable GALILEA WHITAKER Unavailable Unavailable HASMELVA SMITHHANA Unavailable Unavailable HASANMELVAJACKSON Unavailable Unavailable HASMELVA SMITHHANA Unavailable Unavailable GALILEA WHITAKER Unavailable Unavailable Galilea Whitaker Primary Care Pro vider Unavailable Galilea Whitaker Primary Care Pro vider Radha Mejias Unavailable [phone] Aminata Caputo Unavailable Chery Saez Unavailable GALILEA WHITAKER Attending Unavailable GALILEA WHITAKER Referring Unavailable GALILEA WHITAKER Primary Care Unavailable Galilea Whitaker Unavailable Galilea Whitaker Unavailable Galilea Whitaker CNP Primary Care Provider Radha Mejias DO Unavailable [phone] Aminata Caputo MD Unavailable [phone] Galilea Whitaker CNP Unavailable Unavailable Primary Care Provider Unavailabl e Radha Mejias DO Unavailable Aminata Caputo MD Unavailable Sherman LANZA, Gaillea Vieyra Unavailable Sherman LANZA, Galilea Vieyra Primary Care Provider GALILEA WHITAKER Referring Unavailable GALILEA WHITAKER Attending Unavailable GALILEA WHITAKER Primary Care Unavailable Unavailable Primary Care Provider Unavailabl e Unavailable Primary Care Provider Unavailabl e Radha Mejias DO Unavailable Aminata Caputo MD Unavailable Sherman LANAZ Galilea Vieyra Unavailable Sherman LANZA, Galilea Vieyra Primary Care Provider GALILEA WHITAKER Attending Unavailable GALILEA WHITAKER Primary Care Unavailable GALILEA WHITAKER Attending Unavailable GALILEA WHITAKER Primary Care Unavailable CHECO MENDEZ Attending Unavailable GALILEA WHITAKER Primary Care Unavailable GALILEA WHITAKER Referring Unavailable GALILEA WHITAKER Attending Unavailable GALILEA WHITAKER Primary Care Unavailable GALILEA WHITAKER Primary Care Unavailable CAITLIN MEJIA Attending Unavailabl e GALILEA WHITAKER Primary Care Unavailable GALILEA WHITAKER Primary Care Unavailable GALILEA WHITAKER Primary Care Unavailable GALILEA WHITAKER Primary Care Unavailable Sherman LANZARachelGalilea M Unavailable Galilea Whitaker CNP Primary Care Provider Galilea Whitaker CNP Primary Care Provider GALILEA WHITAKER Primary Care Unavailable AUSTEN ROBLEDO Referring Unavailable ALIDA ORLANDO Attending Unavailable GALILEA WHITAKER Primary Care Unavailable AUSTEN ROBLEDO Referring Unavailable GALILEA WHITAKER Primary Care Unavailable AUSTEN ROBLEDO Referring Unavailable AUSTEN ROBLEDO Attending Unavailable Allergies Allergy Classification Reported Allergen(s) Allergy Type Date of Onset Reaction(s) Facility (20 sources) amoxicillin; Translations: [AMOXICILLIN] Propensity to adverse reactions to drug 5 Rash [facility] Work Phone: (20 sources) apple extract; Translations: [APPLE] Propensity to adverse reactions to drug 6 Itching [facility] Work Phone: (20 sources) black pepper preparation; Translations: [BLACK PEPPER] Propensity to adverse reactions to drug 6 Swelling, Rash [facility] Work Phone: (20 sources) cephalexin; Translations: [CEPHALEXIN] Propensity to adverse reactions to drug 0 Rash [facility] Work Phone: (20 sources) clarithromycin; Translations: [CLARITHROMYCIN ] Propensity to adverse reactions to drug 0 Rash, Other: See Comments [facility] Work Phone: (20 sources) erythromycin; Translations: [ERYTHROMYCIN] Propensity to adverse reactions to drug 0 GI Intolerance, Diarrhea, GI Upset, Hives, Other: See Comments, Vomiting [facility] Work Phone: (20 sources) garlic preparation; Translations: [GARLIC] Propensity to adverse reactions to drug 6 Swelling, Rash [facility] Work Phone: (20 sources) Penicillins; Translations: [PENICILLINS] Propensity to adverse reactions to drug 5 Rash [facility] Work Phone: (20 sources) pork allergenic extract; Translations: [PORK DERIVED (PORCINE)] Propensity to adverse reactions to drug 6 Itching [facility] Work Phone: (20 sources) INFLUENZA VIRUS VACCINES; Translations: [INFLUENZA VIRUS VACCINES] Propensity to adverse reactions to drug 6 GI Intolerance [facility] Work Phone: (20 sources) MAPLE FLAVOR; Translations: [MAPLE FLAVOR] Propensity to adverse reactions to drug 6 Itching [facility] Work Phone: (3 sources) Penicillins Propensity to adverse reactions to drug 5 Rash [facility] (3 sources) Influenza Virus Vaccines Propensity to adverse reactions to drug 6 GI Intolerance [facility] Work Phone: (6 sources) Penicillins Propensity to adverse reactions to drug 5 Rash [facility] (6 sources) Influenza Virus Vaccines Propensity to adverse reactions to drug 6 GI Intolerance [facility] Medications Current Medications Medication Drug Class(es) Dates Sig (Normalized) Sig (Original) [id number] 200 actuat albuterol 0.09 mg/actuat metered dose inhaler (15 sources) beta2-Adrenergic Agonist Start: 06-28-2022 End: 06-28-2023 take 2 puff(s) by inhalation every six hours as needed for wheezing albuterol (Ventolin HFA) 90 mcg/actuation inhaler Indications: Wheezing Inhale 2 (two) puffs every 6 (six) hours as needed for wheezing . 18 g 1 06/28/2022 06/28/2023 Active Completed/Discontinued Medications Medication Drug Class(es) Dates Sig (Normalized) Sig (Original) acetaminophen 325 mg / HYDROcodone bitartrate 5 mg oral tablet (1 source) Opioid Agonist Start: 01-08-2020 End: 04-14-2020 take 1 tablet by mouth every six hours as needed HYDROcodone-acetam inophen (NORCO) 5-325 mg per tablet Take 1 tablet by mouth every 6 (six) hours as needed for pain . 0 01/08/2020 04/14/2020 Discontinued azelastine hydrochloride 0.5 mg/ml ophthalmic solution (14 sources) Histamine-1 Receptor Antagonist Start: 03-05-2018 End: 04-14-2020 azelastine (OPTIVAR) 0.05 % ophthalmic solution azithromycin 250 mg oral tablet (6 sources) Macrolide Antimicrobial Start: 05-07-2019 End: 07-16-2019 azithromycin (ZITHROMAX) 250 MG tablet Indications: Acute non-recurrent frontal sinusitis Take 2 tabs x1 day, then 1 tab daily . 6 tablet 0 05/07/2019 07/16/2019 Discontinued (Therapy completed) Problems Active Problems Problem Classification Problem Date Documented Da te Episodic/Chronic Abdominal pain (8 sources) Generalized abdominal pain; Translations: [Generalized abdominal pain] Onset: 3 Episodic Cardiac dysrhythmias (20 sources) Ventricular premature beats; Translations: [Ventricular premature depolarization] Onset: 6 02-14-2016 Chronic Deficiency and other anemia (1 source) Anemia; Translations: [Anemia, unspecified] Episodic Diseases of mouth; excluding dental (1 source) Glossopyrosis ; Translations: [Burning tongue] Episodic Esophageal disorders (5 sources) Gastroesophageal reflux disease without esophagitis; Translations: [Eosinophilic esophagitis] Onset: 3 Chronic Essential hypertension (20 sources) Essential hypertension; Translations: [Essential (primary) hypertension] Onset: 5 11-10-2014 Chronic Gastritis and duodenitis (3 sources) Chronic gastritis; Translations: [Unspecified chronic gastritis without bleeding] Onset: 3 11-19-2022 Chronic Headache, including migraine (20 sources) Migraine; Translations: [Migraine without aura, not refractory ] Onset: 2 10-24-2014 Chronic Miscellaneous mental health disorders (15 sources) Sleep terror disorder; Translations: [Sleep terrors [night terrors]] Onset: 2 04-09-2021 Chronic Mood disorders (20 sources) Severe recurrent major depression without psychotic features; Translations: [Major depressive disorder, recurrent severe without psychotic features] Onset: 5 01-16-2015 Chronic Nutritional deficiencies (20 sources) Vitamin D deficiency; Translations: [Vitamin D deficiency, unspecified] Onset: 5 10-24-2014 Chronic Osteoarthritis (1 source) Arthritis of knee; Translations: [Patellofemoral arthritis of right knee] Chronic Other connective tissue disease (1 source) Hematoma Episodic Other connective tissue disease (1 source) Synovial cyst of popliteal space [Orta], right knee; Translations: [Orta's cyst of knee, right] Episodic Other connective tissue disease (2 sources) Hypermobility syndrome; Translations: [Hypermobility syndrome] Onset: 3 01-14-2023 Episodic Other connective tissue disease (1 source) Hypermobility syndrome; Translations: [Benign joint hypermobility syndrome] Onset: 3 Episodic Other ear and sense organ disorders (20 sources) Bilateral hearing loss; Translations: [Unspecified hearing loss, bilateral] Onset: 9 10-01-2018 Chronic Other female genital disorders (1 source) Abnormal uterine bleeding; Translations: [Other specified abnormal uterine and vaginal bleeding] Chronic Other gastrointestinal disorders (2 sources) Chronic idiopathic constipation; Translations: [Chronic idiopathic constipation] Episodic Other gastrointestinal disorders (2 sources) Dysphagia, unspecified; Translations: [Dysphagia, unspecified] Onset: 3 Episodic Other hematologic conditions (1 source) Macrocytosis; Translations: [Macrocytosis] Episodic Other hereditary and degenerative nervous system conditions (1 source) Restless legs; Translations: [Restless legs syndrome] Chronic Other injuries and conditions due to external causes (2 sources) Unspecified injury of right forearm, initial encounter; Translations: [Unspecified injury of right forearm, initial encounter] Onset: 8 Episodic Other lower respiratory disease (2 sources) Cough; Translations: [Cough] Episodic Other non-traumatic joint disorders (1 source) Hypermobility syndrome; Translations: [Other specific joint derangements of unspecified joint, not elsewhere classified] 11-19-2022 Chronic Other non-traumatic joint disorders (2 sources) Other specific joint derangements of unspecified joint, not elsewhere classified; Translations: [Other specific joint derangements of unspecified joint, not elsewhere classified] Onset: 3 Chronic Other non-traumatic joint disorders (1 source) Knee pain Episodic Other non-traumatic joint disorders (1 source) Hip pain; Translations: [Pain in left hip] Episodic Other non-traumatic joint disorders (1 source) Joint pain; Translations: [Pain in unspecified joint] 11-19-2022 Episodic Other non-traumatic joint disorders (2 sources) Multiple joint pain; Translations: [Pain in unspecified joint] Onset: 3 01-14-2023 Episodic Other non-traumatic joint disorders (1 source) Pain in unspecified joint; Translations: [Pain in joint, multiple sites] Onset: 3 Episodic Other non-traumatic joint disorders (1 source) Pain in right hip joint; Translations: [Right hip pain] Other nutritional; endocrine; and metabolic disorders (2 sources) Weight loss; Translations: [Weight loss] Episodic Other skin disorders (1 source) Fissure in skin; Translations: [Skin fissures] Episodic Other skin disorders (1 source) Loss of hair; Translations: [Nonscarring hair loss, unspecified] Episodic Otitis media and related conditions (1 source) Otitis media of left ear; Translations: [Left otitis media, unspecified otitis media type] Ovarian cyst (1 source) Cyst of left ovary; Translations: [Left ovarian cyst] Residual codes; unclassified (1 source) Dream enactment behavior; Translations: [REM sleep behavior disorder] Chronic Residual codes; unclassified (1 source) Hypersomnia; Translations: [Hypersomnia, unspecified] Chronic Residual codes; unclassified (1 source) Family history of malignant neoplasm of gastrointestinal tract; Translations: [Family history of GI tract cancer] Episodic Unclassified (2 sources) Other injury of unspecified body region, initial encounter; Translations: [Other injury of unspecified body region, initial encounter] Onset: 8 Unclassified (4 sources) Patient encounter status; Translations: [Encounter for preadmission testing] Unclassified (1 source) Other specified disease of esophagus; Translations: [Other specified disease of esophagus] Onset: 3 Viral infection (2 sources) Herpes labialis; Translations: [Herpesviral vesicular dermatitis] 02-18-2023 Episodic Past or Other Problems Problem Classification Problem Date Documented Da te Episodic/Chronic Allergic reactions (20 sources) Environmental allergy; Translations: [Food allergy] Onset: 10-24-2014 10-24-2014 Episodic Cardiac dysrhythmias (15 sources) Palpitations; Translations: [Palpitations] Onset: 04-09-2021 04-09-2021 Episodic Conditions associated with dizziness or vertigo (20 sources) Vertigo; Translations: [Dizziness and giddiness] Onset: 10-01-2018 10-01-2018 Episodic Malaise and fatigue (7 sources) Malaise and fatigue; Translations: [Fatigue] Onset: 11-26-2021 Episodic Nonspecific chest pain (20 sources) Atypical chest pain; Translations: [Other chest pain] Onset: 01-15-2016 01-16-2016 Episodic Nutritional deficiencies (10 sources) Cobalamin deficiency; Translations: [Deficiency of other specified B group vitamins] Onset: 05-21-2022 Episodic Other ear and sense organ disorders (20 sources) Bilateral tinnitus; Translations: [Tinnitus, bilateral] Onset: 10-01-2018 10-01-2018 Episodic Other gastrointestinal disorders (20 sources) Constipation; Translations: [Constipation, unspecified] Onset: 02-06-2016 02-06-2016 Episodic Otitis media and related conditions (2 sources) Unspecified nonsuppurative otitis media, bilateral; Translations: [Unspecified nonsuppurative otitis media, bilateral] Onset: 11-26-2021 Episodic Unclassified (1 source) High frequency hearing loss of both ears Unclassified (2 sources) Forearm injury, right, initial encounter Unclassified (1 source) Other specified disease of esophagus; Translations: [Other specified disease of esophagus] Onset: 11-06-2022 Results Test Name Value Interpretation Reference Range Facil ity Vital Signs Date Time Vital Sign Value Performing Clinician Faci lity 11-19-2022 10:49-0400 Body height 170.2 cm Galilea Whitaker CNP Work Phone: [facility] 11-19-2022 10:49-0400 Body mass index (BMI) [Ratio] 25.69 kg/m2 Galilea Whitaker CNP Work Phone: [facility] 11-19-2022 10:49-0400 Body temperature 98.29 [degF] Galilea Whitaker CNP Work Phone: [facility] 11-19-2022 10:49-0400 Body weight 74.39 kg Galilea Whitaker CNP Work Phone: [facility] 11-19-2022 10:49-0400 Diastolic blood pressure 88 mm[Hg] Galilea Whitaker CNP Work Phone: [facility] 11-19-2022 10:49-0400 Heart rate 61 /min Galilea Whitaker PROFILE GRINDER TECHNICIAN Work Phone: [facility] 11-19-2022 10:49-0400 SaO2% (BldA) [Mass fraction] 95 % Galilea Whitaker PROFILE GRINDER TECHNICIAN Work Phone: [facility] 11-19-2022 10:49-0400 Systolic blood pressure 131 mm[Hg] Galilea Whitaker CNP Work Phone: [facility] 09-24-2022 15:00-0400 Body mass index (BMI) [Ratio] 25.93 kg/m2 Galilea Whitaker PROFILE GRINDER TECHNICIAN Work Phone: [facility] 09-24-2022 15:00-0400 Body temperature 98.01 [degF] Galilea Whitaker PROFILE GRINDER TECHNICIAN Work Phone: [facility] 09-24-2022 15:00-0400 Body weight 75.3 kg Galilea Whitaker PROFILE GRINDER TECHNICIAN Work Phone: [facility] 09-24-2022 15:00-0400 Diastolic blood pressure 85 mm[Hg] Galilea Whitaker PROFILE GRINDER TECHNICIAN Work Phone: [facility] 09-24-2022 15:00-0400 Heart rate 68 /min Galilea Whitaker PROFILE GRINDER TECHNICIAN Work Phone: [facility] 09-24-2022 15:00-0400 SaO2% (BldA) [Mass fraction] 97 % Galilea Whitaker PROFILE GRINDER TECHNICIAN Work Phone: [facility] 09-24-2022 15:00-0400 Systolic blood pressure 127 mm[Hg] Galilea Whitaker PROFILE GRINDER TECHNICIAN Work Phone: [facility] 05-21-2022 10:09-0400 Body height 170.4 cm Galilea Whitaker PROFILE GRINDER TECHNICIAN Work Phone: [facility] 05-21-2022 10:09-0400 Body mass index (BMI) [Ratio] 27.13 kg/m2 Galileabigg Whitaker PROFILE GRINDER TECHNICIAN Work Phone: [facility] 05-21-2022 10:09-0400 Body temperature 98.1 [degF] Galilea Whitaker PROFILE GRINDER TECHNICIAN Work Phone: [facility] 05-21-2022 10:09-0400 Body weight 78.79 kg Galileabigg Whitaker PROFILE GRINDER TECHNICIAN Work Phone: [facility] 05-21-2022 10:09-0400 Diastolic blood pressure 86 mm[Hg] Galilea Sherman PROFILE GRINDER TECHNICIAN Work Phone: [facility] 05-21-2022 10:09-0400 Heart rate 52 /min Galilea Sherman PROFILE GRINDER TECHNICIAN Work Phone: [facility] 05-21-2022 10:09-0400 SaO2% (BldA) [Mass fraction] 98 % Galilea Whitaker CNP Work Phone: [facility] 05-21-2022 10:09-0400 Systolic blood pressure 133 mm[Hg] Galilea Whitaker CNP Work Phone: [facility] 05-28-2021 15:54-0400 Body weight 80.74 kg Alida Monreal APRN.PROFILE GRINDER TECHNICIAN Work Phone: [facility] 05-28-2021 15:54-0400 Diastolic blood pressure 88 mm[Hg] Alida Monreal APRN.PROFILE GRINDER TECHNICIAN Work Phone: [facility] 05-28-2021 15:54-0400 Heart rate 76 /min Alida Monreal APRN.PROFILE GRINDER TECHNICIAN Work Phone: [facility] 05-28-2021 15:54-0400 Systolic blood pressure 130 mm[Hg] Alida Monreal APRN.PROFILE GRINDER TECHNICIAN Work Phone: [facility] 05-15-2021 09:13-0400 Diastolic blood pressure 92 mm[Hg] Galilea Whitaker CNP Work Phone: [facility] Encounters Encounter Date Encounter Type Care Provider Facility Start: 02-18-2023 Orders Only Galilea Whitaker CNP Work Phone: [facility] Primary Care Physicians Procedures Date Procedure Procedure Detail Performing Clinician Start: 11-05-2022 Colonoscopy Galilea OHARA P Work Phone: Start: 05-21-2022 Urnls dip stick/tablet rgnt non-auto w/o micrscp Galilea Whitaker PROFILE GRINDER TECHNICIAN Work Phone: Start: 05-21-2022 Lipid 1996 panel - Serum or Plasma Austen Robledo MD Work Phone: Start: 12-28-2021 Mammography Galilea OHARA P Work Phone: Start: 11-14-2021 Actigraphy testing recording analysis i&r Byron Alexander MD Work Phone: Start: 08-01-2021 Adult depression screening assessment Byron Alexander MD Work Phone: Start: 05-15-2021 Urnls dip stick/tablet rgnt non-auto w/o micrscp Galilea Whitaker PROFILE GRINDER TECHNICIAN Work Phone: Start: 05-07-2021 Echo tthrc r-t 2d w/wom-mode compl spec&colr d Alida E Jocelin WARP SPOOLER.PROFILE GRINDER TECHNICIAN Work Phone: Start: 12-22-2020 Mammography Galilea OHARA P Work Phone: Start: 04-14-2020 Urinalysis macro (dipstick) panel - Urine Galilea Whitaker Work Phone: Start: 12-15-2019 Microscopic observation [Identifier] in Cervix by Cyto stain Galilea Whitaker Start: 08-05-2019 Colonoscopy Galilea Whitaker CN P Work Phone: Start: 06-24-2019 Standard chest X-ray Galilea Whitkaer Work Phone: Start: 03-26-2019 Mammography Caitlin Mejia Start: 02-26-2019 Urinalysis macro (dipstick) panel - Urine Galilea Whitaker Work Phone: Start: 02-25-2019 US angiography of renal artery Chery Saez Work Phone: Start: 07-30-2018 Us transvaginal Jared Reynoso Work Phone: Start: 07-30-2018 Choriogonadotropin ( test) [Presence] in Urine Jared Reynoso Work Phone: Start: 07-30-2018 Urinalysis Jared Reynoso Work Phone: Start: 07-30-2018 Basic metabolic 2000 panel - Serum or Plasma Jared Reynoso Work Phone: Start: 07-30-2018 Complete blood count with white cell differential, automated Jared Camden Reynoso Work Phone: Start: 07-30-2018 Complete blood count with white cell differential, manual Jared Camden Reynoso Work Phone: Start: 07-30-2018 DAVIS TOP Robby Romano Fermin Work Phone: Start: 07-30-2018 LAVENDER TOP Robby Romano Fermin Work Phone: Start: 07-30-2018 LIGHT BLUE TOP Robbyzoie Romano Fermin Work Phone: Start: 07-30-2018 LIGHT GREEN TOP Robby Romano Fermin Work Phone: Start: 07-30-2018 MINT GREEN TOP Robby Fermin Work Phone: Start: 07-30-2018 RAINBOW DRAW Robby Fermin Work Phone: Start: 03-16-2018 Urinalysis macro (dipstick) panel - Urine Galilea Whitaker Work Phone: Start: 03-16-2018 12 lead ECG Galilea Whitaker Work Phone: Start: 02-20-2018 Mammography Galilea Whitaker Start: 11-06-2017 End: 11-06-2017 Radex forearm 2 views Jackson Anthony Work Phone: Start: 04-10-2017 Adult depression screening assessment Galilea Whitaker Start: 06-27-2016 Microscopic observation [Identifier] in Cervix by Cyto stain Galilea Whitaker Plan of Treatment Date Care Activity Detail Author Start: 04-07-2032 Tetanus vaccination Tetanus: Every 1 0yrs [facility] Start: 04-07-2032 Urine microalbumin profile DTaP,Tdap,Td Vaccine (3 - Td or Tdap) [facility] Start: 08-04-2029 Screening for malign ant neoplasm of colon [facility] Start: 11-06-2027 Screening for malign ant neoplasm of colon [facility] Start: 04-11-2028 Lipid 1996 panel - S nikkie or Plasma Lipid Screening [facility] Start: 11-19-2025 Diabetes Screening Diabetes Screenin g [facility] Start: 04-05-2025 TETANUS EVERY 10 YR TETANUS EVERY 10 YR [facility] Work Phone: Start: 04-05-2025 Tetanus vaccination [facility] Start: 12-14-2024 Screening for malign ant neoplasm of cervix Pap Smear [facility] Start: 11-26-2024 DIABETES SCREEN DIABETES SCREEN [facility] Start: 11-26-2024 Diabetes Screening Diabetes Screenin g [facility] Start: 11-20-2023 COVID-19 Vaccine ( season) COVID-19 Vaccine () [facility] Immunizations Immunization Date Immunization Notes Care Provider Mikie lainez 04-07-2022 tetanus toxoid, redu lorelei diphtheria toxoid, and acellular pertussis vaccine, adsorbed Galilea Whitaker [facility] Work Phone: [facility] 04-05-2015 tetanus toxoid, redu lorelei diphtheria toxoid, and acellular pertussis vaccine, adsorbed; Translations: [TDAP] Galilea Whitaker [facility] Work Phone: Payers Date Payer Category Payer Private Health Insurance [facility] [id number] 2020-Present [phone] [address] [address] [place] [address] PPO [id number] 2018 Private Health Insurance [employer] A [employer] CHOICE POS/POSII/PREMIER CARE/PREMIER CARE PLUS xxxxxxxxxx 2018-Present xxxxxxxxxx [id number] 2018 Unknown MMO MED [employer] S UPERMED PPO xxxxxxxx 2018-Present xxxxxxxx [id number] 2018 Unknown [id number] 2018 Unknown [id number] 2018 Unknown [id number] 2014 Worker's Compensation [id number] 2014 Unknown xxxxxxxxx [id number]. 13 2014 Unknown [id number] 2.16.840.1.375342.3.249. 13 1973 Unknown [id number] 2.16.840.1.760783.3.579. 2.903 1973 Unknown [id number] 2.16.840.1.206936.3.579. 2.900 1973 Unknown [id number] 2.16.840.1.607121.3.579. 2.903 1973 Unknown [id number] 2.16.840.1.397277.3.579. 2.903 1973 Unknown [id number] 2.16.840.1.654387.3.579. 2.903 1973 Unknown [id number] 2.16.840.1.489165.3.579. 2.902 1973 Unknown [id number] 2.16.840.1.987150.3.579. 2.900 1973 Unknown [id number] 2.16.840.1.833919.3.579. 2.900 1973 Unknown [id number] 2.16.840.1.792777.3.579. 2.900 1973 Unknown [id number] 2.16.840.1.424902.3.579. 2.900 1973 Unknown [id number] [id number]. 2.900 Social History Date Type Detail Facility Start: 05-05-2017 End: 11-26-2021 Tobacco smoking status NHIS Never smoker [facility] Start: 1975 Sex Assigned At Not on file [facility] Work Phone: Start: 04-22-2014 [facility] Start: 10-01-2018 End: 01-30-2023 Alcohol intake Current drinker of alcohol (finding) [facility] Start: 10-01-2018 End: 05-15-2021 History SDOH Food Worry 1 [facility] Start: 02-26-2019 End: 05-15-2021 History SDOH Alcohol Frequency 5 [facility] Start: 03-10-2021 End: 05-21-2022 Exposure to SARS-CoV-2 (event) Not sure [facility] Start: 10-19-2019 End: 11-26-2021 Tobacco use and exposure Never used [facility] Start: 04-14-2020 History SDOH Alcohol Frequency 4 [facility] Start: 04-09-2021 History SDOH Alcohol Comment social [facility] Start: 05-15-2021 History SDOH Social Connections Membership 2 [facility] Start: 05-15-2021 End: 11-19-2022 History of Social function [facility] Start: 05-15-2021 End: 11-19-2022 Social connection and isolation panel [facility] Frequency of Communication with Friends and Family Not on file [facility] Do you belong to any clubs or organizations such as nondenominational groups, unions, fraternal or athletic groups, or school groups? No [facility] How often to you hav e a drink containing alcohol? 2-3 time sa week [facility] How many standard dr inks containing alcohol do you have on a typical day? 1 or 2 [facility] (I/We) worried wheth er (my/our) food would run out before (I/we) got money to buy more. Never true [facility] Start: 10-14-2017 Gender identity Identifies as female gender (finding) [facility] Start: 10-14-2017 Sexual orientation Heterosexual (finding) [facility] Are you now , , , , never or living with a partner? [facility] How often do you hav e 6 or more drinks on 1 occasion? Never [facility] How hard is it for y ou to pay for the very basics like food, housing, medical care, and heating Not very hard [facility] Do you feel stress - tense, restless, nervous, or anxious, or unable to sleep at night because your mind is troubled all the time - these days [OSQ] Not at all [facility] Goals Date Patient Goal Desired Activity /State Personal health goal Clinical Notes 10-09-2020 to 01-14-2023 Alida Orlando, PT - 01/14/2023 5:24 PM Alida Ospina, PT - 01/14/2023 4:06 PM Alida Ospina, PT - 01/14/2023 3:41 PM Galilea Bravo, PROFILE GRINDER TECHNICIAN - 11/19/2022 11:14 AM EDT Note Date & Type Note Facility 01-14-2023 Note HNO ID: [id number] Author: ALIDA ORLANDO PT Service: ? Author Type: Physical Therapist Type: Progress Notes Filed: 02/28/2023 10:21 Note Text: 02/28/2023 [facility] PHYSICAL THERAPY DISCONTINUANCE OF CARE Plan of Care Period: Start of Care Date: 01/14/23 Last Visit Date: 01/14/2023 Therapy Program: Patient did not return for follow up care as planned. Please refer to last visit note for interventions provided for this episode of care. Assessment: Unable to formally assess goal achievement. Reason for Discontinuation of Care: Patient has not returned to therapy or scheduled additional follow-up appointments. Alida Orlando PT Episode Visit Count: 1 Therapist That Will Accept/Oversee The Plan Of Care: Alida Orlando Start of Care Date: 01/14/23 Onset Date: (chronic) Plan of Care Certification Date: 01/14/23 Next Certification Due Date: 02/18/23 Patient Identified by Name and Date of : Yes REHABILITATION AND SPORTS THERAPY PHYSICAL THERAPY EVALUATION PLAN OF CARE: Assessment: Teresa Cash presents with diagnosis of benign joint hypermobility syndrome, pain in joint that interferes with squatting, lifting, stair negotiation, weight bearing (more difficulty with descending steps as compared to ascending steps) . She presents with impairments in ADL's, independence in exercise, overall function, patient reported outcome measures, and strength. PROMIS? (Patient-Reported Outcomes Measurement Information System) scores were reviewed and physical function domain and self efficacy domain identified as a rehabilitation concern. Prognosis for therapy is Good due to: good support system/ coping skills, positive past response to therapy, current objective clinical presentation . She will benefit from skilled therapy services to meet the goals established for this plan of care as noted below. Goals for Episode of Care: created on 01/14/23 through 02/18/23 [place] in home exercise program. Patient will demonstrate increase in bilateral quadriceps strength to 5/5 during manual muscle testing in order to improve function for prior functional tasks. Reciprocal stair negotiation. Patient will demonstrate improved neuromuscular coordination as evidenced by completion of 8 step down without no UE support. Patient Goals: BLE knee pain and instability. pt would like to improe stability strength. Planned Interventions, Frequency, and Duration: Current Frequency: 1x/week Duration: 5 weeks Total Number of Visits Planned: 5 Planned Treatment Interventions: Therapeutic exercise (86999), Neuromuscular re-education (81306), Manual therapy (58567), Therapeutic activities (69677), Self-shelter management (56750), Gait Training (03428) PLAN FOR NEXT VISIT: progress to added resistance (theraband) with quadriceps, glute, and core stabilization strengthening. BLE mini squats and sit to stands as tolerated Patient demonstrates good understanding of plan of care and treatment. The above goals and plan of care were discussed and agreed upon by patient/family. SUBJECTIVE: for history of chronic multiple joint instabilty. Pt. referred by rheumatology for joint stabilization strengthening. Pt. reports hx of multiple knee and hip (R and L) subluxations and the L shoulder. Pt. recently finished PT for stability strengthening of the L shoulder. Most recent knee subluxation in 2011. Pt. reports her cheif complaint today is stability of the B knees. Darryl pain. She is unable to squat or lift due to feeling unstable. Lateral tracking of the B patellae is observed. She wants 1-2 PT visits for stability strengthening of the knees. Patient Goals: BLE knee pain and instability. pt would like to improe stability strength. Functional Limitations: squatting, lifting, stair negotiation, weight bearing (more difficulty with descending steps as compared to ascending steps) Prior Level of Function: Independent without limitations Intake Information: Prescription present Previous Treatment: (recently finished PT for shoulder instability) Falls Interview: No positive findings with falls interview Pain: Pain Pain Level: 0 Pain Location: Knee - Right, Knee - Left Post Treatment Pain Post Treatment Pain Level: No Change Post Treatment Pain Location: Knee - Right, Knee - Left Post Treatment Symptoms: fatigue without pain PROMIS Scales Higher is Better 01/12/2023 01/04/2023 Phys Func - Score - 46 (within normal limits) Phys Func - Percentile - 34% Self-Eff Symptom - Score 41 (Average) - Self-Eff Symptom - Percentile 18% - T-scores: mean of general population = 50. 5 points is clinically meaningfully difference Percentiles provide an indication of how the patient's score ranks in relation to the general population. Higher percentile rankings indicate better function/quality of life. 50th percentile is the average of the general (more content not included)... [facility] 01-14-2023 History of Present illness Narrative Program_ID:[id number] Access Code: [email or web address] URL: [email or web address] Date: 01-14-2023 Prepared By: Alida Orlando Program Notes Exercises - Straight Leg Raise with External Rotation - 1-2 x daily - 7 x weekly - 2-3 - 10 - Supine Bridge - 1-2 x daily - 7 x weekly - 2-3 - 10 - Clamshell - 1-2 x daily - 7 x weekly - 2-3 - 15 - Sidelying Hip Abduction - 1-2 x daily - 7 x weekly - 2-3 - 12 - Sit to Stand - 1 x daily - 7 x weekly - 2-3 - 5 Program_ID:[id number] Access Code: [email or web address] URL: [email or web address] Date: 01-14-2023 Prepared By: Alida Orlando Program Notes Exercises - Straight Leg Raise with External Rotation - 1-2 x daily - 7 x weekly - 2-3 - 10 - Supine Bridge - 1-2 x daily - 7 x weekly - 2-3 - 10 - Clamshell - 1-2 x daily - 7 x weekly - 2-3 - 15 - Sidelying Hip Abduction - 1-2 x daily - 7 x weekly - 2-3 - 12 - Sit to Stand - 1 x daily - 7 x weekly - 2-3 - 5 Episode Visit Count: 1 Therapist That Will Accept/Oversee The Plan Of Care: Alida Orlando Start of Care Date: 01/14/23 Onset Date: (chronic) Plan of Care Certification Date: 01/14/23 Next Certification Due Date: 02/18/23 Patient Identified by Name and Date of : Yes REHABILITATION AND SPORTS THERAPY PHYSICAL THERAPY EVALUATION PLAN OF CARE: Assessment: Teresa Cash presents with diagnosis of benign joint hypermobility syndrome, pain in joint that interferes with squatting, lifting, stair negotiation, weight bearing (more difficulty with descending steps as compared to ascending steps) . She presents with impairments in ADL's, independence in exercise, overall function, patient reported outcome measures, and strength. PROMIS (Patient-Reported Outcomes Measurement Information System) scores were reviewed and physical function domain and self efficacy domain identified as a rehabilitation concern. Prognosis for therapy is Good due to: good support system/ coping skills, positive past response to therapy, current objective clinical presentation . She will benefit from skilled therapy services to meet the goals established for this plan of care as noted below. Goals for Episode of Care: created on 01/14/23 through 02/18/23 [place] in home exercise program. Patient will demonstrate increase in bilateral quadriceps strength to 5/5 during manual muscle testing in order to improve function for prior functional tasks. Reciprocal stair negotiation. Patient will demonstrate improved neuromuscular coordination as evidenced by completion of 8 step down without no UE support. Patient Goals: BLE knee pain and instability. pt would like to improe stability strength. Planned Interventions, Frequency, and Duration: Current Frequency: 1x/week Duration: 5 weeks Total Number of Visits Planned: 5 Planned Treatment Interventions: Therapeutic exercise (92224), Neuromuscular re-education (82924), Manual therapy (23829), Therapeutic activities (21061), Self-shelter management (93991), Gait Training (00355) PLAN FOR NEXT VISIT: progress to added resistance (theraband) with quadriceps, glute, and core stabilization strengthening. BLE mini squats and sit to stands as tolerated Patient demonstrates good understanding of plan of care and treatment. The above goals and plan of care were discussed and agreed upon by patient/family. SUBJECTIVE: for history of chronic multiple joint instabilty. Pt. referred by rheumatology for joint stabilization strengthening. Pt. reports hx of multiple knee and hip (R and L) subluxations and the L shoulder. Pt. recently finished PT for stability strengthening of the L shoulder. Most recent knee subluxation in 2011. Pt. reports her cheif complaint today is stability of the B knees. Darryl pain. She is unable to squat or lift due to feeling unstable. Lateral tracking of the B patellae is observed. She wants 1-2 PT visits for stability strengthening of the knees. Patient Goals: BLE knee pain and instability. pt would like to improe stability strength. Functional Limitations: squatting, lifting, stair negotiation, weight bearing (more difficulty with descending steps as compared to ascending steps) Prior Level of Function: Independent without limitations Intake Information: Prescription present Previous Treatment: (recently finished PT for shoulder instability) Falls Interview: No positive findings with falls interview Pain: Pain Pain Level: 0 Pain Location: Knee - Right, Knee - Left Post Treatment Pain Post Treatment Pain Level: No Change Post Treatment Pain Location: Knee - Right, Knee - Left Post Treatment Symptoms: fatigue without pain PROMIS Scales Higher is Better 01/12/2023 01/04/2023 Phys Func - Score - 46 (within normal limits) Phys Func - Percentile - 34% Self-Eff Symptom - Score 41 (Average) - Self-Eff Symptom - Percentile 18% - T-scores: mean of general population = 50. 5 points is clinically meaningfully difference Percentiles provide an indication of how the patient's score ranks in relation to the general population. Higher percentile rankings indicate better function/quality of life. 50th percentile is the average of the general population and indicates half of respondents had a worse score. OBJECTIVE MEASURES WITH LEVEL OF FUNCTION: Posture / Alignment R LE Anatomical Alignment Weight-Bearing: R Patella dannie (latearal patella) L LE Anatomical Alignment Weight-Bearing: L Patella dannie (lateral patella) Sensation - Lower Extremity LE Light Touch Sensation: Grossly Intact LE AROM R Knee Extension: 0 Degrees L Knee Extension: -5 Degrees Special Tests - Knee Knee Special Tests: Comments Special Tests Comments: lateral pull of patella evident BLE with quad set Education: Education Learning Preferences: Demonstration, Performance, Printed Materials, Explanation Barriers: None Learning/educational needs: Plan of Care, Home exercise program Education Provided: Yes, see treatment interventions for education provided Education Provided To: Patient Education Mode/Type: Demonstration, Explanation/Discussion, Literature/Printed Materials, Performance Response to Education/Teach Back: States/Identifies, Return Demonstration, Requires Review/Additional Education, No Evidence Of Learning TREATMENT: PT Treatment Interventions: Therapeutic Exercise, Self-Custodial Management Evaluation Therapeutic Exercise: 1: *Access Code: [email or web address] URL: [email or web address] Date: 01/14/2023 Prepared by: Alida Walker'Hair Exercises - Straight Leg Raise with External Rotation - 1-2 x daily - 7 x weekly - 2-3 sets - 10 reps - Supine Bridge - 1-2 x daily - 7 x weekly - 2-3 sets - 10 reps - Clamshell - 1-2 x daily - 7 x weekly - 2-3 sets - 15 reps - 3 hold - Sidelying Hip Abduction - 1-2 x daily - 7 x weekly - 2-3 sets - 12 reps - 3 hold - Sit to Stand - 1 x daily - 7 x weekly - 2-3 sets - 5 reps - 3 hold Skilled Intervention: Patient was educated in proper exercise technique and purpose for exercises. Skilled judgment was used in selection of appropriate interventions. Provided written instruction for home exercise program to facilitate proper performance and compliance. Correct performance of therapeutic exercises was facilitated with verbal, visual, and tactile cuing. Educated patient on rationale for performing exercises in regards to decreasing fatigue , increase ease of ADL, and ROM and function . Patient education as noted. Self-Custodial Management: 1: discussed hip strengthening as it relates to the stability of the distal knee joints to assist in reducing rotational instability at the knee 2: discussed the role of the VMO as it relates to patellar tracking 3: discussed that HEP is currently in supine/SL positions to offer external joint support and avoid excessive force on the joints while providing knee and hip stabilization strengthenign Skilled Intervention: Skilled judgment in the selection of proper modification for activity of daily living/home management based on clinical presentation, deficits, and needs. Provided written instruction for activities of daily living techniques to facilitate proper performance and compliance. Reviewed patient specific diagnosis in relation to activities of daily living/home management. Activity progression based on professional judgement. Reviewed and educated patient on additions/changes for home program as noted above with an (*). Billing * Evaluation Low Complexity: 1 Unit Therapeutic Exercise Treatment Minutes: 15 Self-Care/Home Management Treatment Minutes: 10 Skilled Treatment Time Minutes (timed and untimed codes): 45 Total Session Time (minutes): 45 Session Start Time : 1538 Session Stop Time : 1623 Alida Orlando PT documented in this encounter [facility] 01-08-2023 Note HNO ID: [id number] Author: Alyce Diaz RT(R) Service: ? Author Type: Technologist Type: Progress Notes Filed: 01/08/2023 1:14 PM Note Text: Radiology Service Progress Note PATIENT NAME: Teresa Cash DATE OF SERVICE: January 08, 2023 TIME: 1:13 PM PATIENT IDENTITY VERIFICATION COMPLETED USING TWO (2) IDENTIFIERS: Name and Date of confirmed by patient verbally. FALL SCREENING: Has the patient had 2 falls in the last year or 1 fall with injury or currently using an Ambulatory Assistive Device (Walker, Cane, Wheelchair, Crutches, etc.)? No PATIENT GENDER DATA: Female. status: : No status: NO. PATIENT RELEVANT IMPLANT DATA REVIEWED: Not Applicable RADIOLOGY DEPARTMENT: General X-ray: Exam(s) Completed: Upper Extremity X-Ray(s): Hand, bilateral PERIPHERAL IV DATA: Not applicable SIGNED BY: RT Ray(Casimiro) January 08, 2023 1:13 PM [facility] 01-08-2023 Note HNO ID: [id number] Author: Austen Robledo MD Service: ? Author Type: Physician Type: Progress Notes Filed: 01/08/2023 1:02 PM Note Text: On 01/08/2023, I had the pleasure of seeing Teresa Cash at the [facility]. Teresa Cash was referred for an opinion and advice regarding joint instability. My findings and final recommendations will be communicated to the requesting health care provider by way of the shared medical record for internal providers or letter via the [employer] for external providers. Chief complaint: Joint instability HPI: To review, Teresa Cash is a 47 year old female - At age 14, first dislocated one knee. Thereafter, has dislocated both knees on multiple occasions, last was L knee in - Around , noted onset of R hip partial subluxation. Since , has had either hip partially sublux about 5 times. L shoulder partial sublux once. Has had tendonitis/bursitis of the L shoulder too. With L clavicle issue too, pops with moving around. Can get stiff and painful. PT x2-3 months for shoulder - With pain in the knees daily. Wrist pain R>L occasional, minor. Sometimes with bilateral MCP/PIP pain/swelling. - Takes nothing for pain. - Morning stiffness couple of minutes in the hands, low back 30-60 minutes - Progressive balance issues. - Random bruises that show up on legs. PAST MEDICAL HISTORY Diagnosis Date Essential hypertension Insomnia Seasonal allergies PTSD/depression/anxiety Asthma Anemia L5/S1 disc herniation in ALLERGIES Allergen Reactions Clarithromycin Other: See Comments, Rash Erythromycin Diarrhea, GI Upset, Hives, Other: See Comments, Vomiting MEDICATIONS: Current Outpatient Medications Medication Sig gabapentin (NEURONTIN) 100 mg capsule Take (1) capsule by mouth at dinner and (2) capsules by mouth at bedtime gabapentin (NEURONTIN) 100 mg capsule Take (1) capsule by mouth at dinner and (2) capsules by mouth at bedtime Cyanocobalamin (VITAMIN B-12) 250 mcg tab Take by mouth. olmesartan (BENICAR) 40 mg tablet Take 40 mg by mouth once daily. tiZANidine (ZANAFLEX) 4 mg tablet Take 12 mg by mouth. cholecalciferol, vitamin D3, (VITAMIN D3 ORAL) Take by mouth once daily. fexofenadine HCl (LANA ORAL) Take by mouth as needed. cetirizine HCl (ZYRTEC ORAL) Take by mouth once daily. pantoprazole sodium (PANTOPRAZOLE ORAL) Take by mouth. bupropion HCl (WELLBUTRIN ORAL) Take 450 mg by mouth once daily. No current facility-administered medications for this visit. FAMILY HISTORY Problem Relation Age of Onset other (irregular heartbeat) Mother SOCIAL HISTORY: Lives in [place] with spouse. 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 No biological children, prior pregnancies. Tobacco use: None Alcohol use: 1-2 drinks/week Drug use: None Review of Systems CONSTITUTION: Positive for: Recent weight change Negative for: Fever HEENT: Positive for: Trouble swallowing Negative for: Nosebleeds, Mouth sores and Dry mouth RESPIRATORY: Negative for: Cough, Shortness of breath and Pain with breathing GASTROINTESTINAL: Positive for: Heartburn and Abdominal pain Negative for: Melena and Diarrhea MUSCULOSKELETAL: Positive for: Arthralgias, Myalgias, Muscle weakness, Joint swelling and Morning Joint Stiffness NEUROLOGICAL: Positive for: Headaches and Memory loss Negative for: Numbness SKIN: Negative for: Rash, Skin changes, Hair loss and Nail changes EYES: Positive for: Visual disturbance Negative for: Eye pain, Eye redness and Eye dryness CARDIOVASCULAR: Negative for: Chest pain and Leg swelling GENITOURINARY: Negative for: Dysuria and Hematuria HEMATOLOGIC/LYMPHATIC: Negative for: Swollen glands PHYSICAL EXAM: VITALS: Blood pressure 118/87, pulse 78, temperature 36.3 ?C (97.4 ?F), temperature source Temporal, height 172.7 cm (5' 8 ), weight 70.3 kg (155 lb). CONSTITUTIONAL: Well-appearing, in NAD. SKIN: No rash. No alopecia. No sclerodactyly, calcinosis, telangiectasias, digital ulcers, or skin thickening. EYES: No scleral icterus or conjunctivitis ENT and Mouth: External ears normal. Nares normal. RESPIRATORY: Normal breath sounds, clear to auscultation. CARDIOVASCULAR: Regular rate and rhythm, no murmurs or rubs EXTREMITIES/LYMPH: No edema bilaterally NEURO: Awake, alert and oriented, Normal gait MUSCULOSKELETAL: JOINT APPEARANCE: No erythema or warmth of any upper or lower extremity joint. RANGE OF MOTION: Able to fully close fists and curl fingers bilaterally. SWOLLEN JOINTS/SYNOVITIS: No synovitis of any joint. TENDER JOINTS: Tenderness to palpation of the bilateral shoulders Widespread Pain Index: 7 (0-19) Symptoms Severity Scale: 9 (0-12) WPI>7 and SS Scale>5 OR WPI 3-6 and SS Scale >9 consistent with fibromyalgia Beighton Score for Joint Laxity: Total score 6/9 *Passive apposition of thum (more content not included)... [facility] 11-19-2022 History of Present illness Narrative Subjective: Patient ID: Teresa Cash is a 46 y.o. female. PERCY Moore presents today for chronic disease management She did her colonoscopy and Upper GI 11/05/22; repeat colonoscopy in 5 years. UGI showed erythemic gastritis. Dr. Mejia started her on protonix daily for 3 months and then f/u in 3 months. She feels like it is helping and she is happy she knows what is wrong. She states that she still has abdominal pain, but less. She has taken no meds today. She states that her BP has been normal at home. She has occasional PVCs but denies CP/SOB States left shoulder and clavicle pain- she states that she is seeing ortho in [place]- she is concerned because she feels like it is popping out. She also has dislocated her knees multiple times and right hip goes out at times. She is concerned if she has a systemic disorder. She doesn't think that her family has any rheumatic disease, but that she did have arthritic concerns She c/o a lot of fatigue. Denies Cp/SOB, denies Gómez/dizziness Past Medical History: Diagnosis Date Anemia Arrhythmia as a child Arthritis Asthma Cancer (HCC) mom, father, maternal aunt, paternal grandmother Disease of thyroid gland mother Ganglion cyst GERD (gastroesophageal reflux disease) Heart murmur as a child, and pvc as adult Hypertension Injury of back ruptured L5/S1 in 1995 Irregular heart beat MDD (major depressive disorder) Migraine PVC (premature ventricular contraction) Stroke (HCC) maternal grandmother COD, brother x3 2018 Past Surgical History: Procedure Laterality Date ADENOIDECTOMY as an infant APPENDECTOMY CYST REMOVAL KNEE SURGERY Right 03/25/2018 Dr. Ramsay TONSILLECTOMY as an Family History Problem Relation Age of Onset Cancer Mother bladder, pelvis Arrhythmia Mother Arthritis Mother Depression Mother Cancer Father type unknown Alcohol abuse Father Early Father suicide Mental illness Father Cancer Other Hypertension Other Seizures Other Stroke Other Stroke Maternal Grandmother stroke as COD Heart failure Maternal Grandmother Arthritis Maternal Grandmother Hearing loss Maternal Grandmother Cancer Paternal Grandmother Abdominal Arthritis Maternal Aunt Hypertension Brother Uncontrolled Stroke Brother X3 in 2018 Breast cancer Neg Hx Allergies Allergen Reactions Apple Itching Erythromycin GI Intolerance Influenza Virus Vaccines GI Intolerance Maple Flavor Itching Pork Derived (Porcine) Itching Amoxicillin Rash Black Pepper Swelling and Rash Cephalexin Rash Clarithromycin Rash Garlic Swelling and Rash Penicillins Rash Social History Socioeconomic History Marital status: Tobacco Use Smoking status: Never Smokeless tobacco: Never Vaping Use Vaping Use: Never used Substance and Sexual Activity Alcohol use: Yes Alcohol/week: 5.0 standard drinks of alcohol Types: 5 Glasses of wine per week Drug use: Never Sexual activity: Yes Partners: Male control/protection: None Social Determinants of Health Financial Resource Strain: Low Risk (11/19/2022) Overall Financial Resource Strain (CARDIA) Difficulty of Paying Living Expenses: Not very hard Food Insecurity: No Food Insecurity (11/19/2022) Hunger Vital Sign Worried About Running Out of Food in the Last Year: Never true Ran Out of Food in the Last Year: Never true Transportation Needs: No Transportation Needs (11/19/2022) PRAPARE - Transportation Lack of Transportation (Medical): No Lack of Transportation (Non-Medical): No Physical Activity: Sufficiently Active (11/19/2022) Exercise Vital Sign Days of Exercise per Week: 4 days Minutes of Exercise per Session: 40 min Stress: No Stress Concern Present (11/19/2022) [employer] [place] [employer] - Occupational Stress Questionnaire Feeling of Stress : Not at all Social Connections: Socially Isolated (11/19/2022) Social Connection and Isolation Panel [NHANES] Frequency of Communication with Friends and Family: Never Frequency of Social Gatherings with Friends and Family: Never Attends Religion Services: Never Active Member of Clubs or Organizations: No Attends Club or Organization Meetings: Never Marital Status: Housing Stability: Unknown (11/19/2022) Housing Stability Vital Sign Unable to Pay for Housing in the Last Year: No Unstable Housing in the Last Year: No Current Outpatient Medications: albuterol (Ventolin HFA) 90 mcg/actuation inhaler, Inhale 2 (two) puffs every 6 (six) hours as needed for wheezing ., Disp: 18 g, Rfl: 1 buPROPion (WELLBUTRIN XL) 150 MG 24 hr tablet, Take 3 (three) tablets (450 mg total) by mouth daily IN THE MORNING ., Disp: , Rfl: cetirizine (ZYRTEC) 10 MG tablet, Take 1 (one) tablet (10 mg total) by mouth every evening ., Disp: , Rfl: cholecalciferol, vitamin D3, 5,000 unit Tab tablet, Take by mouth daily ., Disp: , Rfl: cyanocobalamin (B-12) 1000 MCG tablet, Take 5 (five) tablets (5,000 mcg total) by mouth daily ., Disp: , Rfl: fluconazole (DIFLUCAN) 150 MG tablet, TAKE ONE TABLET BY MOUTH ONCE A SINGLE DOSE, Disp: , Rfl: ivermectin 1 % Crea, Apply topically ., Disp: , Rfl: meclizine (ANTIVERT) 25 mg tablet, Take 1 (one) tablet (25 mg total) by mouth 3 (three) times a day as needed ., Disp: 30 tablet, Rfl: 2 oxymetazoline 1 % Crea, Apply topically ., Disp: , Rfl: pantoprazole (PROTONIX) 40 MG tablet, Take 1 (one) tablet (40 mg total) by mouth daily ., Disp: 30 tablet, Rfl: 2 polyethylene glycol (GLYCOLAX) 17 gram/dose powder, Take 17 (seventeen) g by mouth daily ., Disp: 1530 g, Rfl: 3 sod sulf-pot chloride-mag sulf (Sutab) 1.479-0.188- 0.225 gram Tab, Take 1 kit by mouth See Admin Instructions Use split dose instructions ., Disp: 24 tablet, Rfl: 0 olmesartan (BENICAR) 40 MG tablet, Take 1 (one) tablet (40 mg total) by mouth daily ., Disp: 90 tablet, Rfl: 1 tiZANidine (Zanaflex) 4 MG tablet, Take up to 3 (three) tablets (12 mg total) by mouth at bedtime., Disp: 270 tablet, Rfl: 1 BP 131/88 (BP Location: Right arm, Patient Position: Sitting, BP Cuff Size: Adult) Pulse 61 Temp 98.3 F (36.8 C) (Oral) Ht 5' 7 Wt 74.4 kg (164 lb) SpO2 95% BMI 25.69 kg/m Review of Systems Constitutional: Positive for fatigue. Negative for appetite change, chills, fever and unexpected weight change. HENT: Negative for trouble swallowing. Eyes: Negative. Negative for visual disturbance. Respiratory: Negative for cough and shortness of breath. Cardiovascular: Negative for chest pain, palpitations and leg swelling. Gastrointestinal: Positive for constipation (but stable). Musculoskeletal: Positive for arthralgias and myalgias. Negative for back pain and joint swelling. Multiple joint dislocations Skin: Negative. Neurological: Negative for dizziness, numbness and headaches. Hematological: Negative. Psychiatric/Behavioral: Positive for sleep disturbance. Negative for agitation and dysphoric mood. The patient is not nervous/anxious. Objective: Physical Exam Vitals reviewed. Constitutional: Appearance: She is well-developed. HENT: Head: Normocephalic and atraumatic. Neck: Thyroid: No thyromegaly. Trachea: Trachea normal. Cardiovascular: Rate and Rhythm: Normal rate and regular rhythm. Heart sounds: Normal heart sounds, S1 normal and S2 normal. Pulmonary: Effort: Pulmonary effort is normal. No accessory muscle usage or respiratory distress. Breath sounds: Normal breath sounds. Musculoskeletal: Left shoulder: Tenderness and crepitus present. Normal range of motion. Normal strength. Cervical back: Normal range of motion and neck supple. Right lower leg: No edema. Left lower leg: No edema. Skin: General: Skin is warm and dry. Neurological: Mental Status: She is alert and oriented to person, place, and time. Psychiatric: Mood and Affect: Mood normal. Behavior: Behavior normal. Cognition and Memory: Cognition normal. Assessment/Plan: Diagnoses and all orders for this visit: Arthralgia, unspecified joint Comments: Following with ortho- with recurrent concerns, question rheumatic source- checking base labs today and will place referral to [facility] rheumatology Chronic migraine without aura without status migrainosus, not intractable Comments: Stable at this time. Continue current regimen Orders: - tiZANidine (Zanaflex) 4 MG tablet; Take up to 3 (three) tablets (12 mg total) by mouth at bedtime. Essential hypertension Comments: Stable, continue current regimen. Encouraged low Na diet Orders: - olmesartan (BENICAR) 40 MG tablet; Take 1 (one) tablet (40 mg total) by mouth daily . - CBC and Differential; Future - Comprehensive Metabolic Panel; Future Fatigue, unspecified type Comments: checking labs to assure no systemic source- has seen sleep med but did not tolerate meds well- may need to reconsider next steps Orders: - Ambulatory referral to Rheumatology; Future - ANGEL; Future - Rheumatoid factor; Future - Sedimentation Rate; Future - TSH with Reflex Free T4; Future - Iron and TIBC; Future - Ferritin; Future Generalized hypermobility of joints Comments: As above- referring to rheumatology- Orders: - Ambulatory referral to Rheumatology; Future - ANGEL; Future - Rheumatoid factor; Future - Sedimentation Rate; Future Other chronic gastritis without hemorrhage Comments: Seen on recent upper GI- following with Dr. Mejia- some improvement with protonix- f/u in January. 04/10/2017 8:00 AM 10/01/2018 10:00 AM 10/15/2019 4:03 PM 04/14/2020 9:00 AM 11/19/2022 10:00 AM Depression Screening Little interest or pleasure in doing things 0 0 0 0 Feeling down, depressed, or hopeless 0 0 0 0 PHQ-2 Total Score 0 0 0 0 Trouble falling or staying asleep, or sleeping too much 2 3 3 0 Feeling tired or having little energy 1 3 1 0 Poor appetite or overeating 0 0 0 0 Feeling bad about yourself - or that you are a failure or have let yourself or your family down 0 0 0 Trouble concentrating on things, such as reading the newspaper or watching television 0 0 0 0 Moving or speaking so slowly that other people could have noticed. Or the opposite - being so fidgety or restless that you have been moving around a lot more than usual 0 0 0 0 Thoughts that you would be better off , or of hurting yourself in some way 0 0 0 0 PHQ-9 Total Score 3 4 0 If you checked off any problems, how difficult have these problems made it for you to do your work, take care of things at home, or get along with other people? Not difficult at all Somewhat difficult Not difficult at all Not difficult at all documented in this encounter [facility] 09-27-2022 History of Present illness Narrative Subjective: Patient ID: Teresa Cash is a 46 y.o. female. HPI Teresa presents today for acute concerns Relates that she has been having intermittent pain after eating for some time- doesn't always happen. About 2 weeks ago she was out with her - they had dinner and shared a bottle of wine. On the drive home she had to [employer] and let her drive because her pain was so bad. It will be in RUQ and radiate to the center, sometimes bilateral. She has chronic constipation, but no recent changes. She is scheduled for EGD and colonoscopy with Dr. Mejia in October. Past Medical History: Diagnosis Date Asthma Ganglion cyst Hypertension Irregular heart beat MDD (major depressive disorder) Migraine PVC (premature ventricular contraction) Past Surgical History: Procedure Laterality Date APPENDECTOMY CYST REMOVAL KNEE SURGERY Right 03/25/2018 Dr. Ramsay Family History Problem Relation Age of Onset Cancer Mother Cancer Father Cancer Other Hypertension Other Seizures Other Stroke Other Stroke Maternal Grandmother Heart failure Maternal Grandmother Breast cancer Neg Hx Allergies Allergen Reactions Apple Itching Erythromycin GI Intolerance Influenza Virus Vaccines GI Intolerance Maple Flavor Itching Pork Derived (Porcine) Itching Amoxicillin Rash Black Pepper Swelling and Rash Cephalexin Rash Clarithromycin Rash Garlic Swelling and Rash Penicillins Rash Social History Socioeconomic History Marital status: Tobacco Use Smoking status: Never Smokeless tobacco: Never Vaping Use Vaping Use: Never used Substance and Sexual Activity Alcohol use: Yes Drug use: No Sexual activity: Yes Partners: Male Social Determinants of Health Financial Resource Strain: Low Risk (05/15/2021) Overall Financial Resource Strain (CARDIA) Difficulty of Paying Living Expenses: Not hard at all Food Insecurity: No Food Insecurity (05/15/2021) Hunger Vital Sign Worried About Running Out of Food in the Last Year: Never true Ran Out of Food in the Last Year: Never true Transportation Needs: No Transportation Needs (05/15/2021) PRAPARE - Transportation Lack of Transportation (Medical): No Lack of Transportation (Non-Medical): No Social Connections: Unknown (05/15/2021) Social Connection and Isolation Panel [NHANES] Active Member of Clubs or Organizations: No Attends Club or Organization Meetings: Never Current Outpatient Medications: albuterol (Ventolin HFA) 90 mcg/actuation inhaler, Inhale 2 (two) puffs every 6 (six) hours as needed for wheezing ., Disp: 18 g, Rfl: 1 buPROPion (WELLBUTRIN XL) 150 MG 24 hr tablet, Take 2 (two) tablets (300 mg total) by mouth daily IN THE MORNING ., Disp: , Rfl: cetirizine (ZYRTEC) 10 MG tablet, Take 1 (one) tablet (10 mg total) by mouth every evening ., Disp: , Rfl: cholecalciferol, vitamin D3, 5,000 unit Tab tablet, Take by mouth daily ., Disp: , Rfl: cyanocobalamin (B-12) 1000 MCG tablet, Take 5 (five) tablets (5,000 mcg total) by mouth daily ., Disp: , Rfl: fluconazole (DIFLUCAN) 150 MG tablet, TAKE ONE TABLET BY MOUTH ONCE A SINGLE DOSE, Disp: , Rfl: ivermectin 1 % Crea, Apply topically ., Disp: , Rfl: meclizine (ANTIVERT) 25 mg tablet, Take 1 (one) tablet (25 mg total) by mouth 3 (three) times a day as needed ., Disp: 30 tablet, Rfl: 2 olmesartan (BENICAR) 40 MG tablet, Take 1 (one) tablet (40 mg total) by mouth daily ., Disp: 90 tablet, Rfl: 1 oxymetazoline 1 % Crea, Apply topically ., Disp: , Rfl: polyethylene glycol (GLYCOLAX) 17 gram/dose powder, Take 17 (seventeen) g by mouth daily ., Disp: 1530 g, Rfl: 3 tiZANidine (Zanaflex) 4 MG tablet, Take up to 3 (three) tablets (12 mg total) by mouth at bedtime., Disp: 270 tablet, Rfl: 1 sod sulf-pot chloride-mag sulf (Sutab) 1.479-0.188- 0.225 gram Tab, Take 1 kit by mouth See Admin Instructions Use split dose instructions ., Disp: 24 tablet, Rfl: 0 BP 127/85 (BP Cuff Size: Adult) Pulse 68 Temp 98 F (36.7 C) Wt 75.3 kg (166 lb) SpO2 97% BMI 25.93 kg/m Review of Systems Constitutional: Negative for appetite change, chills, fatigue, fever and unexpected weight change. HENT: Negative for trouble swallowing. Eyes: Negative. Negative for visual disturbance. Respiratory: Negative for cough and shortness of breath. Cardiovascular: Negative for chest pain, palpitations and leg swelling. Gastrointestinal: Positive for abdominal distention (bloating), abdominal pain and constipation (chronic, no change). Negative for diarrhea and nausea. Musculoskeletal: Negative for arthralgias, back pain, joint swelling and myalgias. Skin: Negative. Neurological: Negative for dizziness and headaches. Hematological: Negative. Psychiatric/Behavioral: Negative for agitation, dysphoric mood and sleep disturbance. The patient is not nervous/anxious. Objective: Physical Exam Vitals reviewed. Constitutional: Appearance: She is well-developed. HENT: Head: Normocephalic and atraumatic. Neck: Thyroid: No thyromegaly. Trachea: Trachea normal. Cardiovascular: Rate and Rhythm: Normal rate and regular rhythm. Heart sounds: Normal heart sounds, S1 normal and S2 normal. Comments: No peripheral edema Pulmonary: Effort: Pulmonary effort is normal. No accessory muscle usage or respiratory distress. Breath sounds: Normal breath sounds. Abdominal: General: Bowel sounds are normal. Palpations: Abdomen is soft. Tenderness: There is no abdominal tenderness. There is no guarding or rebound. Musculoskeletal: Cervical back: Normal range of motion and neck supple. Skin: General: Skin is warm and dry. Neurological: Mental Status: She is alert and oriented to person, place, and time. Assessment/Plan: Diagnoses and all orders for this visit: Generalized abdominal pain Comments: Possibly gallbladder- currently without pain. Will check labs and get US. Having EGD and colonoscopy in October. Discussed avoiding high fat/rich foods. Orders: - Comprehensive Metabolic Panel; Future - Lipase; Future - Amylase; Future - US Abdomen Complete; Future documented in this encounter [facility] 05-21-2022 History of Present illness Narrative Images from the original note were not included. Subjective: Patient ID: Teresa Cash is a 46 y.o. female. PERCY Moore presents today for CPE: Last Colonoscopy : 08/05/19 [place]- repeat 3 years- will contact them to schedule Last Mammogram : 12/28/21 [place] Last PAP : [facility]- UTD Last Stress Test: echo 05/07/21- EF 71% normal Immunizations: TDaP: 04/07/22 COVID: 05/12/20, 06/05/20, declines FLU: allg Last CXR: 06/24/19- normal Optho: [facility] Dentist: Q6 months Sleep: Dr. Alexander 01/11/22- f/u 09/18/22- prescribed gabapentin- she is self weaning- felt made depressed Derm: Dr Luis- 10/22/21 Cardio: Dr. Monreal 05/28/21-referral to sleep med Denies CP/SOB, denies Gómez. 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 States no dark or bloody stools Urinating without a problem She has taken no meds today She has had occasional PVCs recently She is fasting today Past Medical History: Diagnosis Date Asthma Ganglion cyst Hypertension Irregular heart beat MDD (major depressive disorder) Migraine PVC (premature ventricular contraction) Past Surgical History: Procedure Laterality Date APPENDECTOMY CYST REMOVAL KNEE SURGERY Right 03/25/2018 Dr. Ramsay Family History Problem Relation Age of Onset Cancer Mother Cancer Father Cancer Other Hypertension Other Seizures Other Stroke Other Stroke Maternal Grandmother Heart failure Maternal Grandmother Breast cancer Neg Hx Allergies Allergen Reactions Apple Itching Erythromycin GI Intolerance Influenza Virus Vaccines GI Intolerance Maple Flavor Itching Pork Derived (Porcine) Itching Amoxicillin Rash Black Pepper Swelling and Rash Cephalexin Rash Clarithromycin Rash Garlic Swelling and Rash Penicillins Rash Social History Socioeconomic History Marital status: Tobacco Use Smoking status: Never Smokeless tobacco: Never Vaping Use Vaping status: Never Used Substance and Sexual Activity Alcohol use: Yes Drug use: No Sexual activity: Yes Partners: Male Social Determinants of Health Financial Resource Strain: Low Risk (05/15/2021) Overall Financial Resource Strain (CARDIA) Difficulty of Paying Living Expenses: Not hard at all Food Insecurity: No Food Insecurity (05/15/2021) Hunger Vital Sign Worried About Running Out of Food in the Last Year: Never true Ran Out of Food in the Last Year: Never true Transportation Needs: No Transportation Needs (05/15/2021) PRAPARE - Transportation Lack of Transportation (Medical): No Lack of Transportation (Non-Medical): No Social Connections: Unknown (05/15/2021) Social Connection and Isolation Panel [NHANES] Active Member of Clubs or Organizations: No Attends Club or Organization Meetings: Never Current Outpatient Medications: albuterol (Ventolin HFA) 90 mcg/actuation inhaler, Inhale 2 (two) puffs every 6 (six) hours as needed for wheezing ., Disp: 1 Inhaler, Rfl: 1 cetirizine (ZYRTEC) 10 MG tablet, Take 1 (one) tablet (10 mg total) by mouth every evening ., Disp: , Rfl: cholecalciferol, vitamin D3, 5,000 unit Tab tablet, Take by mouth daily ., Disp: , Rfl: cyanocobalamin (B-12) 1000 MCG tablet, Take 5 (five) tablets (5,000 mcg total) by mouth daily ., Disp: , Rfl: fexofenadine (LANA) 180 MG tablet, Take 1 (one) tablet (180 mg total) by mouth daily ., Disp: , Rfl: ivermectin 1 % Crea, Apply topically ., Disp: , Rfl: nirmatrelvir-ritonavir (PAXLOVID) 300 mg (150 mg x 2)-100 mg tablet therapy pack, Take by mouth ., Disp: , Rfl: oxymetazoline 1 % Crea, Apply topically ., Disp: , Rfl: polyethylene glycol (GLYCOLAX) 17 gram/dose powder, Take 17 (seventeen) g by mouth daily ., Disp: 1530 g, Rfl: 3 buPROPion (WELLBUTRIN XL) 150 MG 24 hr tablet, Take 1 (one) tablet (150 mg total) by mouth daily IN THE MORNING ., Disp: , Rfl: fluconazole (DIFLUCAN) 150 MG tablet, TAKE ONE TABLET BY MOUTH ONCE A SINGLE DOSE, Disp: , Rfl: gabapentin (NEURONTIN) 100 MG capsule, TAKE 1 CAPSULE BY MOUTH AT DINNER AND 2 CAPSULES BY MOUTH AT BEDTIME, Disp: , Rfl: meclizine (ANTIVERT) 25 mg tablet, Take 1 (one) tablet (25 mg total) by mouth 3 (three) times a day as needed ., Disp: 30 tablet, Rfl: 2 olmesartan (BENICAR) 40 MG tablet, Take 1 (one) tablet (40 mg total) by mouth daily ., Disp: 90 tablet, Rfl: 1 tiZANidine (Zanaflex) 4 MG tablet, Take up to 3 (three) tablets (12 mg total) by mouth at bedtime., Disp: 270 tablet, Rfl: 1 BP 133/86 (BP Cuff Size: Adult) Pulse (!) 52 Temp 98.1 F (36.7 C) Ht 5' 7.09 Wt 78.8 kg (173 lb 11.2 oz) SpO2 98% BMI 27.13 kg/m Review of Systems Constitutional: Positive for fatigue. Negative for appetite change, chills, fever and unexpected weight change. HENT: Negative for congestion, dental problem, rhinorrhea, sore throat and trouble swallowing. Eyes: Negative. Negative for visual disturbance. Respiratory: Negative for apnea, cough and shortness of breath. Cardiovascular: Negative for chest pain, palpitations and leg swelling. Gastrointestinal: Negative for abdominal distention, blood in stool, constipation, diarrhea, nausea and rectal pain. Endocrine: Negative. Genitourinary: Negative for difficulty urinating, dysuria, frequency, menstrual problem and urgency. Musculoskeletal: Negative for arthralgias, back pain, joint swelling and myalgias. Skin: Positive for color change. Allergic/Immunologic: Positive for environmental allergies. Neurological: Positive for light-headedness. Negative for dizziness, syncope, numbness and headaches. Hematological: Negative. Psychiatric/Behavioral: Positive for sleep disturbance (night terrors). Negative for dysphoric mood. The patient is not nervous/anxious. Objective: Physical Exam Vitals reviewed. Constitutional: Appearance: She is well-developed. HENT: Head: Normocephalic and atraumatic. Right Ear: Hearing, tympanic membrane and external ear normal. Left Ear: Hearing, tympanic membrane and external ear normal. Ears: Comments: Bilateral canal reddened Nose: Nose normal. Mouth/Throat: Lips: [place]. Mouth: Mucous membranes are moist. Pharynx: Uvula midline. Eyes: General: Lids are normal. Extraocular Movements: Extraocular movements intact. Conjunctiva/sclera: Conjunctivae normal. Pupils: Pupils are equal, round, and reactive to light. Neck: Thyroid: No thyromegaly. Vascular: No carotid bruit. Trachea: Trachea normal. Cardiovascular: Rate and Rhythm: Normal rate and regular rhythm. Heart sounds: Normal heart sounds, S1 normal and S2 normal. Pulmonary: Effort: Pulmonary effort is normal. No accessory muscle usage or respiratory distress. Breath sounds: Normal breath sounds. Abdominal: General: Bowel sounds are decreased. There is no distension. Palpations: Abdomen is soft. Abdomen is not rigid. Tenderness: There is no abdominal tenderness. There is no guarding. Musculoskeletal: Cervical back: Normal range of motion and neck supple. Left hip: No deformity, tenderness or crepitus. Normal range of motion. Right lower leg: No edema. Left lower leg: No edema. Lymphadenopathy: Cervical: No cervical adenopathy. Skin: General: Skin is warm and dry. Neurological: Mental Status: She is alert and oriented to person, place, and time. Sensory: No sensory deficit. Motor: Motor function is intact. Coordination: Coordination is intact. Gait: Gait is intact. Psychiatric: Mood and Affect: Mood normal. Speech: Speech normal. Behavior: Behavior normal. Cognition and Memory: Cognition normal. Assessment/Plan: Diagnoses and all orders for this visit: Annual physical exam Comments: reviewed PMH, PSH, FMH, social hx. Discussed preventative needs and immunizations. Labs today. Pap through [facility] Orders: - CBC and Differential; Future - Comprehensive Metabolic Panel; Future - Lipid Panel; Future - POC Urinalysis Dipstick Chronic migraine without aura without status migrainosus, not intractable Comments: Stable at this time. Continue current regimen Orders: - tiZANidine (Zanaflex) 4 MG tablet; Take up to 3 (three) tablets (12 mg total) by mouth at bedtime. Essential hypertension Comments: Stable, continue current regimen. Encouraged low Na diet Orders: - olmesartan (BENICAR) 40 MG tablet; Take 1 (one) tablet (40 mg total) by mouth daily . Vitamin D deficiency Comments: checking levels and will adjust plan as appropriate Orders: - Vitamin D, Total, 25-OH; Future Vitamin B12 deficiency Comments: checking levels and will adjust plan as appropriate Orders: - Vitamin B12; Future Vertigo Comments: Worsens with seasonal changes- will continue PRN Meclizine. recommend establishing with new chief deputy coroner. Orders: - meclizine (ANTIVERT) 25 mg tablet; Take 1 (one) tablet (25 mg total) by mouth 3 (three) times a day as needed . - Magnesium Level; Future Psychophysiological insomnia Comments: Following consistently with sleep med- self weaned off of gabapentin- will follow with sleep med for next plan- continue tizanidine. documented in this encounter [facility] 04-16-2022 Miscellaneous Notes Physician: No primary care provider on file. Call from pharmacy requesting refill. Please E-Scribe Last OV: Visit date not found Future OV: Visit date not found Requested Prescriptions Pending Prescriptions Disp Refills gabapentin (NEURONTIN) 100 mg capsule 90 capsule 2 Sig: Take (1) capsule by mouth at dinner and (2) capsules by mouth at bedtime Pharmacy has been captured: Yes Marleny Fuller MA documented in this encounter [facility] 01-11-2022 Instructions Byron Alexander MD - 01/11/2022 11:47 AM EST IMPRESSION: Insomnia, chronic - Due to anxiety Sleep State Misperception Upper Airway Resistance Syndrome Continue gabapentin. Take 100 mg with dinner and 200 mg at bedtime. Follow-up 3-4 months Clinical Global Impression of Change ( CGI-C) Compared to the patient's condition at baseline, how much has the patient changed? Much improved Byron Alexander MD documented in this encounter [facility] 01-11-2022 History of Present illness Narrative Images from the original note were not included. [facility] Follow up/ Established patient visit Visit performed virtually, with the patient's permission. 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 Cash has experienced complex movements and behaviors since she was in middle school; these include sleep talking, sleep walking, night terrors (with screaming and mild agitation), as well as dream enactment. Over the past 3 years, the later two have predominated, and the episodes can occur 2-3 times per night and 3-4 nights per week. Her is not present to give a history, but Mrs. De describes a typical episode in the following manner: occurring shortly after transitioning to sleep or later in the night, most including screaming (or shouting), most with movements of the arms (such as hitting out), most with brief (5-10 minute) post arousal confusion and agitation (not post-ictal), and some with pressurized dream content. None of the episodes are stereotyped. The duration of the episode is unknown. There are also overlaps with other sleep disorders such as obstructive sleep apnea and narcolepsy. She gives a history of snoring and waking up (even without an episode) at specific times during the night, which suggests sleep apnea. She also gives a detailed description of sleep paralysis, which has worsened over the past year (4 episodes that she can recall), but she has no significant daytime sleepiness. She takes tizanidine total dose of 4 mg to 6 mg to help her fall asleep. She keeps a regular sleep schedule that allows for enough hours of sleep and sunlight in the morning. A polysomnography with limb leads and EEG is recommended followed by MSLT. Those results will follow. logistics clerk treatment will depend on these results and will likely include Behavioral Sleep Medicine. Interval history : Here for follow up for Her PSG was normal with no behaviors or epileptiform discharges. There was no SUDHA. Her actigaphy was normal in duration and time, with a suggestion of sleep state misinterpretation. Since last visit she has started gabapentin. She is finding that 200 mg dose is acceptable at helping her stay asleep. But, it does not help her fall asleep. (300 mg is too sedating in the morning) She takes her gabapentin and goes to bed 930-11. She is falling asleep between 130 - 200 am. She feels anxiety. Waking up by 830 am. During the day she is more rested. PATIENT-ENTERED QUESTIONNAIRE SLEEP SCORES Sleep Questions 01/11/2022 Reason for visit: Difficulty falling or staying asleep or poor sleep quality Average hours slept in 24 hours: - Accidents or near accidents due to drowsy drivin [place] Sleepiness Scale 08/01/2021 01/11/2022 Score 3 (No daytime sleepiness) 2 (No daytime sleepiness) PROMIS CAT Sleep Disturbance 08/01/2021 01/11/2022 PROMIS Sleep Disturbance T-Score 63 (moderate) 52 (within normal limits) Insomnia Severity Index 08/01/2021 Score 20 PHQ-9 08/01/2021 01/11/2022 Score 9 9 PROMIS Global Health - (T-Scores - the mean of general population = 50. Five points is a clinically meaningful difference.) 08/01/2021 01/11/2022 Physical T-Score 39.8 44.9 Mental T-Score 50.8 45.8 PMH, PSH, SH: No change SLEEP RELATED ROS Review of Systems ALLERGIES Allergen Reactions Clarithromycin Other: See Comments, Rash Erythromycin Diarrhea, GI Upset, Hives, Other: See Comments, Vomiting CURRENT MEDICATIONS: gabapentin (NEURONTIN) 100 mg capsule^Take (3) capsules by mouth one hour before bed. Start as directed.^Disp: 90 capsule^Rfl: 2 Cyanocobalamin (VITAMIN B-12) 250 mcg tab^Take by mouth.^Disp: ^Rfl: olmesartan (BENICAR) 40 mg tablet^Take 40 mg by mouth once daily.^Disp: ^Rfl: tiZANidine (ZANAFLEX) 4 mg tablet^Take 12 mg by mouth.^Disp: ^Rfl: cholecalciferol, vitamin D3, (VITAMIN D3 ORAL)^Take by mouth once daily.^Disp: ^Rfl: fexofenadine HCl (LANA ORAL)^Take by mouth as needed. ^Disp: ^Rfl: cetirizine HCl (ZYRTEC ORAL)^Take by mouth once daily.^Disp: ^Rfl: Prior Hypersomnia/Narcolepsy Medications (20 years) Some values may be hidden. Unless noted otherwise, only the newest values recorded on each date are displayed. Hypersomnia/Narcolepsy Medications No data to display. Prior RLS Medications (last 20 years) Some values may be hidden. Unless noted otherwise, only the newest values recorded on each date are displayed. RLS Medications No data to display. Prior Insomnia Medications (last 20 years) Some values may be hidden. Unless noted otherwise, only the newest values recorded on each date are displayed. Insomnia Medications No data to display. PHYSICAL EXAMINATION: Virtual IMPRESSION: Insomnia, chronic - Due to anxiety Sleep State Misperception Upper Airway Resistance Syndrome Continue gabapentin. Take 100 mg with dinner and 200 mg at bedtime. Follow-up 3-4 months Clinical Global Impression of Change ( CGI-C) Compared to the patient's condition at baseline, how much has the patient changed? Much improved Byron Alexander MD documented in this encounter [facility] 11-14-2021 Procedure note Associated Ord er(s): ACTIGRAPHY TESTING Actigraphy Report Template Results: Actigraphy/sleep diary was performed for 17 days prior to MSLT. My impression based on above is adequate sleep duration prior to MSLT (8.7 hrs) Average Bedtime 10:51PM, with a range of 8:55PM to 1:49AM Average Wake time 8:37AM , with a range of 7:29AM to 10:19AM Average Total Sleep Time 8.7 hrs Significant Variability in Sleep-Wake Schedule Yes Days with Naps 0 Average Nap Duration N/a Circadian Rhythm appropriate. Procedure: Actigraphy (CPT code 98801) Reason for study: hypersomnia-MSLT planned Length of study: This study was performed for: 2 weeks Dates of Actigraphy study: From 10/27/2021 To 11/12/2021 Technical quality of the recording: An Actigraphy GTX was used for this study. There were no apparent technical issues with the recording. All data were used in sleep scoring and analysis Using the Mark Kripke algorithm, data was extrapolated manually to determine sleep episodes. 1. Recorded variables extrapolated from the Actigraphy and sleep log a. Bedtime (Clock time attempted to fall asleep based on actigraphy log) b. Wake time: Clock time of final awakening in the morning based on actigraphy (reported In hours or minutes). For most individuals, this will take place at night; however, For some (e.g., shift workers) it may not. c. Time in bed (TIB): Duration between reported bedtime and wake time 2. Actigraphy variables a. Sleep onset: Clock time individual fell asleep as determined by the actigraph based on the sleep-scoring algorithm or hand-scoring rules. b. Sleep offset: Clock time individual woke up as determined by the actigraph based on the sleep-scoring algorithm or hand-scoring rules. c. Sleep period: Duration between sleep onset and sleep offset (reported in hours or minutes). d. Total sleep time (TST): Duration of sleep during the major sleep period (reported in hours or minutes). e. Total wake time (TWT): Duration of wake during the major sleep period (reported in hours or minutes). The sum of TST and TWT should equal the sleep period. f. Sleep efficiency (SE) or sleep percent: There are a number of ways in which SE is computed, and it differs across devices; however, the variable of interest is the proportion of time the patient is asleep out of the total time in bed. Sleep efficiency should technically only be calculated when reported variables are available (providing the TIB). Sleep percent, on the other hand, provides the percent of time the individual is asleep during the actigraphically scored in-bed period. Interpretation: The actigraphy recording spans 17 days including 6 weekend days. Sleep diary was obtained along this recording. Patient sleep diary does match with actigraphy recording with regard to bed and wake times. Pt estimates of long sleep onset latency do not match with actigraphy, which shows quick PATRICK. Bedtimes and wake-up times were determined from the sleep diary/automatic rest periods. Bedtimes were not regular for the majority of the recording with an average bedtime of 10:51PM, with a range of 8:55PM to 1:49AM. Wake up times were not regular for the majority of recording with the average wake up time of 8:37AM , with a range of 7:29AM to 10:19AM. Patient had an averaged sleep time of 8.7 hours per night. Estimated sleep efficiency was not reduced ( 90 %). Activity was increased during the rest period and WASO time was 60 minutes on average. Naps were not recorded. The circadian rhythm appears appropriate. My impression based on above is appropriate sleep time for the age 8.7 hours daily, increased wake after sleep onset , adequate sleep duration prior to MSLT, and inconsistencies between self-reported times and sleep estimated by actigraphy (for sleep onset latency) [place] : Raeann Gutierrez, PhD, [facility] Psychologist ([place] License [id number]) Behavioral Sleep Medicine Disclosure: There are limitations of actigraphy data. This test is not a measure of daytime sleepiness or insomnia. Findings may suggest the etiology of sleepiness due to an observed pattern or help in the understanding of patterns associated with conditions being evaluated documented in this encounter [facility] 11-14-2021 History of Present illness Narrative Sleep Study Check-In Documentation Date: November 14, 2021 Name: Teresa Yoonkenisha Patient was accompanied by Self. Location: Latex allergy: No Tape allergy: No Current medications were reviewed with the patient:Yes Sleep aid taken by patient for the sleep study: [place] of sleep aid: Not Applicable Procedure was explained to the patient and all questions were answered. PAP treatment discussed and shown to patient: Yes Knowledge Program (KP): KP was not completed in epic by patient and accepted Study type: Double study-Polysomnogram with extra EEG Adverse Event: No (If yes create a new abstract) SERS Event: No Comments: Patient was advised to follow up with their ordering provider regarding test results Aubrey Argueta documented in this encounter [facility] 10-26-2021 History of Present illness Narrative ACTIGRAPHY DEVICE # [id number] Date shipped out 10/26/2021 [employer] MAIL OUT TRACKING NUMBER [id number] [employer] RETURN TRACKING NUMBER [id number], Gina documented in this encounter [facility] 08-02-2021 History of Present illness Narrative Images from the original note were not included. [facility] New Patient Evaluation PATIENT NAME: Teresa Cash DATE OF SERVICE: August 02, 2021 CONSULTING PROVIDER: Judson Newman MD [address] [facility] [address] [id number] CC: Night terrors HPI: Teresa Cash is a 45 year old female. Sleep-related history: Actively screaming at night. Sleep issues since middle school and used to include sleep walking. She has a history of traumaThese episodes occur either soon after going to sleep or late in the night. She gives an example, of this past Friday night, she was told that she was screaming. She did not have recall this episode. The episodes often vary; sometimes she does have vivid recall of dreams and waking up having acted them out (including thrashing and flailing arms). Most dreams are violent in nature. She also has had episodes of sleep paralysis. She wakes up in nightmare - unable to move, not sure if she was screaming. And with racing. She has 2-3 episodes per night and 3-4 times per week. These have become more frequent over 3 years. When she wakes up, she is panicked, but not inconsolable. After 5 minutes, in general, she is able to fall back to sleep. SLEEP-WAKE SCHEDULE She is a self-described morning person. Bedtime: 1030 PM. She has a hard time falling asleep. Time to fall asleep: 2 hours . She is on her phone to distract her. She takes tizanidine (2-3) 2 mg at 1030. Wake time: 630 AM, without an alarm. After falling asleep: she wakes up 2-3 time(s) per night, and does not know the reason for waking up. At similar times. On weekends, she tends to sleep 8.5 - 9 hours Average total sleep time (in a 24 hour period): 8.5 hours. SLEEP-RELATED DETAILS Preferred sleep position: side or back Breathing disturbances and other behaviors during sleep: snoring - wakes up with sore throat at times Bruxism: No GERD or aspiration: No Waking up with heart pounding or racing: Yes Anxiety or rumination: Yes She does not report having an urge to move the legs in the evening (when resting) that is accompanied or caused by uncomfortable and/or unpleasant sensations in the legs. She has not been told that she has leg kicking during sleep. She denies any history of parasomnias. Tired upon awakening. Excessive daytime sleepiness / fatigue is a problem. Excessive Daytime sleepiness/fatigue has been a problem for 10 years. There is no history of a viral illness or significant head injury prior to the start of daytime sleepiness. She does report sleep paralysis or sleep-related hallucinations, but no cataplexy. 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 She does have difficulty with memory or concentration. Winter is more significant. She denies falling asleep or dozing off when driving. She does not take naps. She does drink 1 caffeinated beverages per day. There has not been a recent change in weight. Patient Questionnaires Sleep Scores Sleep Questions 08/01/2021 Reason for visit: Difficulty falling or staying asleep or poor sleep quality, Abnormal behaviors/movements during sleep Average hours slept in 24 hours: 6 Accidents or near accidents due to drowsy drivin PROMIS CAT Sleep Disturbance 08/01/2021 PROMIS Sleep Disturbance T-Score 63 (moderate) PHQ-9 08/01/2021 Score 9 PROMIS Global Health - (T-Scores - the mean of general population = 50. Five points is a clinically meaningful difference.) 08/01/2021 Physical T-Score 39.8 Mental T-Score 50.8 [place] Sleepiness Scale Sitting and Reading? slight chance of dozing (1) Watching TV? slight chance of dozing (1) Sitting inactive in a public place (e.g a theater or a meeting) no chance of dozing (0) As a passenger in a car for an hour without a break? slight chance of dozing (1) Lying down to rest in the afternoon when circumstances permit? no chance of dozing (0) Sitting and talking to someone? no chance of dozing (0) Sitting quietly after lunch without alcohol? no chance of dozing (0) In a car, while stopped for a few minutes in traffic? no chance of dozing (0) Total Score NORMAL (3) Insomnia Severity Index Difficulty falling asleep Very Severe (4) Difficulty staying asleep Severe (3) Problem waking up too early Severe (3) Satisfied/dissatisfied with current sleep pattern Dissatisfied (3) Sleep interferes with daily functions Somewhat Interfering (2) Sleep problems noticeable to others Much Noticeable (3) Worried/distressed about current sleep problems Somewhat (2) Total Score MODERATELY SEVERE Clinical Insomnia (20) PAST TREATMENTS: None PRIOR SLEEP STUDIES: Last study was 20 years ago in [place]. OTHER RELEVANT LABS AND STUDIES: PAST MEDICAL HISTORY Diagnosis Date Essential hypertension Insomnia Seasonal allergies No past surgical history on file. ACTIVE PROBLEM LIST Palpitations Sleep Terrors Primary Hypertension Allergies As of Date: 08/02/2021 Allergen Noted Reaction CLARITHROMYCIN 07/17/2009 Other: See Comments and Rash ERYTHROMYCIN 07/17/2009 Diarrhea, GI Upset, Hives, Other: See Comments, and Vomiting Fully Assessed 05/29/2021 CURRENT MEDICATIONS: Cyanocobalamin (VITAMIN B-12) 250 mcg tab Take by mouth. olmesartan (BENICAR) 40 mg tablet Take 40 mg by mouth once daily. tiZANidine (ZANAFLEX) 4 mg tablet Take 12 mg by mouth. cholecalciferol, vitamin D3, (VITAMIN D3 ORAL) Take by mouth once daily. fexofenadine HCl (LANA ORAL) Take by mouth as needed. cetirizine HCl (ZYRTEC ORAL) Take by mouth once daily. Prior Hypersomnia/Narcolepsy Medications (20 years) Some values may be hidden. Unless noted otherwise, only the newest values recorded on each date are displayed. Hypersomnia/Narcolepsy Medications No data to display. Prior RLS Medications (last 20 years) Some values may be hidden. Unless noted otherwise, only the newest values recorded on each date are displayed. RLS Medications No data to display. Prior Insomnia Medications (last 20 years) Some values may be hidden. Unless noted otherwise, only the newest values recorded on each date are displayed. Insomnia Medications No data to display. Review of Systems SOCIAL HISTORY: Social History Tobacco Use Smoking status: Never Smoker Smokeless tobacco: Never Used Vaping Use Vaping Use: Never used Substance Use Topics Alcohol use: Yes Comment: social Drug use: Not on file FAMILY HISTORY: FAMILY HISTORY Problem Relation Age of Onset other (irregular heartbeat) Mother There is a family history of: Insomnia. Relative: mom PHYSICAL EXAMINATION: Virtual IMPRESSION/PLAN: Parasomnia - Non REM sleep and REM sleep Mrs. Cash has experienced complex movements and behaviors since she was in middle school; these include sleep talking, sleep walking, night terrors (with screaming and mild agitation), as well as dream enactment. Over the past 3 years, the later two have predominated, and the episodes can occur 2-3 times per night and 3-4 nights per week. Her is not present to give a history, but Mrs. De describes a typical episode in the following manner: occurring shortly after transitioning to sleep or later in the night, most including screaming (or shouting), most with movements of the arms (such as hitting out), most with brief (5-10 minute) post arousal confusion and agitation (not post-ictal), and some with pressurized dream content. None of the episodes are stereotyped. The duration of the episode is unknown. There are also overlaps with other sleep disorders such as obstructive sleep apnea and narcolepsy. She gives a history of snoring and waking up (even without an episode) at specific times during the night, which suggests sleep apnea. She also gives a detailed description of sleep paralysis, which has worsened over the past year (4 episodes that she can recall), but she has no significant daytime sleepiness. She takes tizanidine total dose of 4 mg to 6 mg to help her fall asleep. She keeps a regular sleep schedule that allows for enough hours of sleep and sunlight in the morning. A polysomnography with limb leads and EEG is recommended followed by MSLT. Those results will follow. logistics clerk treatment will depend on these results and will likely include Behavioral Sleep Medicine. Byron Alexander MD documented in this encounter [facility] 05-28-2021 Instructions Alida Monreal APRN.[facility] - 05/28/2021 4:07 PM EDT Heart Disease in Women Is heart disease a problem for women? Heart disease is the leading cause of of [place] women. More women from heart disease than from cancer. A heart attack can happen when there are problems with the blood vessels that bring blood to the heart (the coronary arteries). For example, fatty deposits called plaque may build up in the coronary arteries and make them narrower. The narrowing decreases blood flow to the heart. Plaque also increases the chance that blood clots may form and block a blood vessel, which can cause a heart attack or stroke. In the first year after a heart attack, women have an increased risk of . In the first 6 years after a heart attack, they also have a higher risk of a second heart attack. Women are at high risk often because they are older at the time of the heart attack and have other medical problems. Not everyone has the same symptoms. The most common symptoms of a heart attack include: Chest pain or pressure, squeezing, or fullness in the center of your chest that lasts more than a few minutes, or goes away and comes back (may feel like indigestion or heartburn) Pain or discomfort in one or both arms or shoulders, or in your back, neck, jaw, or stomach Trouble breathing Breaking out in a cold sweat for no known reason Along with these symptoms, you may also feel very tired, faint, or be sick to your stomach. Sometimes you can be having a heart attack and not know it. Many women have chest pain or pressure, but sometimes symptoms in women are different from men s symptoms. Or women may have additional symptoms, such as: Unexplained anxiety and nervousness Swelling of the ankles or lower legs Because they may not feel the typical pain in the left side of their chest, many women may ignore the symptoms of a heart attack. Call 911 for emergency help right away if you have these symptoms. Do not drive yourself to the hospital. Immediate emergency care improves your chances of survival and may help avoid damage to your heart. How can women lower their risk for heart disease? If you have high blood pressure, carefully follow your healthcare provider's instructions for keeping it under control. If you are a smoker, stop smoking. Try to keep a healthy weight. If you are overweight, talk to your provider about ways to lose weight. Eat a healthy diet that includes: ?Avoiding salty foods and not adding salt to food ?Increasing fiber, fruits, and vegetables ?Avoiding foods high in fat, cholesterol, and sugar Exercise according to your healthcare provider's instructions. Get enough rest and learn to use relaxation methods to help reduce stress. Treat and control medical conditions such as diabetes and high cholesterol. If you are taking hormone therapy, you and your healthcare provider should discuss the risks and benefits. Hormone therapy may increase the risk for heart disease or stroke. Talk with your provider about taking aspirin. Low-dose aspirin therapy reduces the risk of stroke for women. But it helps to lower a woman s risk of heart attack and other heart problems only if she is 65 or older. Make sure that your provider knows about any other medicines you are taking. If you decide you need to make changes in the way you live, you probably won't be able to turn your life around all at once. Try to develop healthy habits that incorporate your lifestyle goals. If you do, you will greatly decrease your chances for developing heart disease. You can get more information from: [place] [facility] Apeqomhlhjk6-296-N[place]I-[place]-1 ( )www.heart.org Developed by [employer]. Published by [employer]. Copyright 2014 [employer] and/or one of its subsidiaries. All rights reserved. documented in this encounter [facility] 05-28-2021 History of Present illness Narrative Chief Complaint Patient presents with: Established Patient History of Present Illness: Teresa Cash is a 45 year old female who presents for routine follow up. She has a past medical history of PVCs and HTN. She was last seen in office by myself on 04/09/2021. At that time, she explained, she has a history of PVCs. Symptoms were manageable without a beta-baljinder or calcium channel baljinder for several years. She felt prompted for cardiology reevaluation after two episdoes during the night when she woke up with her heart racing and chest pain. She reported her heart rate to be about 160 bpm. She also explained she has a history of trauma and sleep terrors which could explain symptoms but she wanted to rule out any cardiology cause. She completed a 14 day monitor without significant arrhythmia and an echocardiogram which revealed grossly normal structure and function. She is seen in follow up today. Testing results were reviewed. She has not had any further significant cardiac episodes. She is planned for a sleep evaluation. PAST MEDICAL HISTORY Diagnosis Date Essential hypertension Insomnia Seasonal allergies History reviewed. No pertinent surgical history. FAMILY HISTORY Problem Relation Age of Onset other (irregular heartbeat) Mother Social History Tobacco Use Smoking status: Never Smoker Smokeless tobacco: Never Used Vaping Use Vaping Use: Never used Substance Use Topics Alcohol use: Yes Comment: social Drug use: Not on file ALLERGIES Allergen Reactions Clarithromycin Other: See Comments, Rash Erythromycin Diarrhea, GI Upset, Hives, Other: See Comments, Vomiting Medications: Current Outpatient Medications Medication Sig Dispense Refill Cyanocobalamin (VITAMIN B-12) 250 mcg tab Take by mouth. olmesartan (BENICAR) 40 mg tablet Take 40 mg by mouth once daily. tiZANidine (ZANAFLEX) 4 mg tablet Take 12 mg by mouth. cholecalciferol, vitamin D3, (VITAMIN D3 ORAL) Take by mouth once daily. fexofenadine HCl (LANA ORAL) Take by mouth as needed. cetirizine HCl (ZYRTEC ORAL) Take by mouth once daily. Current Facility-Administered Medications Medication Dose Route Frequency Provider Last Rate Last Admin perflutren lipid microspheres 1.3 mL in NaCl (PF) 0.9% 10 mL injection (DEFINITY) INTRAVENOUS DIRECTED PRN Alida Monreal APRN.PROFILE GRINDER TECHNICIAN sodium chloride 0.9 % (flush) 10 mL (BD POSIFLUSH) 10 mL INTRAVENOUS DIRECTED PRN Alida Monreal APRN.PROFILE GRINDER TECHNICIAN Review of Systems Constitutional: Negative for chills, diaphoresis, fever, malaise/fatigue and weight loss. HENT: Negative for congestion, ear pain, nosebleeds, sinus pain and sore throat. Eyes: Negative for pain. Respiratory: Negative for cough, shortness of breath and wheezing. Cardiovascular: Negative for chest pain, palpitations, orthopnea, claudication and leg swelling. Gastrointestinal: Negative for abdominal pain, blood in stool and melena. Genitourinary: Negative for hematuria. Musculoskeletal: Negative for falls. Neurological: Negative for dizziness, tingling, sensory change, speech change, focal weakness, loss of consciousness, weakness and headaches. Endo/Heme/Allergies: Does not bruise/bleed easily. Psychiatric/Behavioral: Negative for memory loss and suicidal ideas. Physical Examination: Vitals:BP 130/88 Pulse 76 Wt 178 lb (80.7kg) Last 2 Encounter Wt Readings: Date: Wt: 04/09/2021 174 lb (78.9 kg) Physical Exam HENT: Head: Normocephalic. Eyes: Pupils: Pupils are equal, round, and reactive to light. Cardiovascular: Rate and Rhythm: Normal rate and regular rhythm. Pulses: Radial pulses are 2+ on the right side and 2+ on the left side. Dorsalis pedis pulses are 2+ on the right side and 2+ on the left side. Heart sounds: Normal heart sounds, S1 normal and S2 normal. Pulmonary: Effort: Pulmonary effort is normal. No accessory muscle usage or respiratory distress. Breath sounds: Normal breath sounds. Abdominal: General: Bowel sounds are normal. Palpations: Abdomen is soft. Musculoskeletal: General: Normal range of motion. Cervical back: Normal range of motion. Right lower leg: No edema. Left lower leg: No edema. Skin: General: Skin is warm and dry. Neurological: Mental Status: She is alert and oriented to person, place, and time. Gait: Gait is intact. Psychiatric: Mood and Affect: Affect normal. Cognition and Memory: Memory normal. Judgment: Judgment normal. Most Recent Cardiac Testing 05/07/2021 CONCLUSIONS: - Exam indication: Palpitations - The left ventricle is normal in size. Left ventricular systolic function is normal. EF = 71 5% (2D biplane) Normal left ventricular diastolic function. - The right ventricle is normal in size. Right ventricular systolic function is normal. - There are no significant valvular abnormalities. - The patient has not had a prior CC echocardiographic exam for comparison. 04/09/2021 Patient had a min HR of 41 bpm, max HR of 148 bpm, and avg HR of 72 bpm. Predominant underlying rhythm was Sinus Rhythm. Isolated SVEs were rare (<1.0%), SVE Couplets were rare (<1.0%), and no SVE Triplets were present. Isolated VEs were rare (<1.0%), and no VE Couplets or VE Triplets were present. Assessment and Plan: HTN -130/88 -Continue current medication(s) -Encouraged dietary sodium restriction/DASH diet -Recommended regular aerobic exercise. -Recommend home blood pressure monitoring, to bring results in on next visit -Goal of BP <130/80 Palpitations/PVCs -x2 episodes during the night in March, has not had a reoccurrence -echocardiogram completed with grossly normal structure and function -monitor completed without significant arrhythmia -not currently on BB or CCB -recommended conservative measures: stay hydrated, limit stimulants/caffiene, limit stress Low cardiovascular disease risk factors Plans to have sleep evaluation. Follow up in 1 year or as needed. Patient to call with any issues or concerns prior to then. Some elements were copied from my note dated 04/09/2021, which have been updated where appropriate, and all reflect current medical decision making from today Electronically signed by Alida Monreal APRN.CNP on May 28, 2021, 3:32 PM documented in this encounter [facility] 05-15-2021 History of Present illness Narrative Subjective: Patient ID: Teresa Cash is a 45 y.o. female. PERCY Moore presents today for CPE: Last Colonoscopy : 08/05/19 Dr Mejia- repeat 3 years Last Mammogram : done at [facility] fall Last PAP : 01/04/20- Dr. Chase- normal Last Stress Test: 05/07/21- normal echo Immunizations: TDaP: 04/05/15 COVID: 05/12/20, 06/05/20, declines booster FLU: allergy Last CXR: 06/24/19- normal Optho: [facility] Dentist: Q6 months GI: Dr. Mejia in [place], Dr. Monte in [facility] Cardio: [facility]- appt next week, had echo 05/07/21 and event monitor- referred to Sleep Med Allergy: Dr. Rea Ortho: Dr. Savana MANDEL Relates that she is doing ok She states that she went to cardio because she thought she was having a heart attack. In the last 4 months she has had 3 episodes of extreme palpitations, difficult to catch her breath. All occurred in the middle of the night. She does struggle with night terrors and just wanted to assure that her heart was ok. They are referring her to a sleep specialist that focuses on night terrors- will follow up on that this week at appt She states that her palpitations have improved. Denies CP/SOB Denies Gómez/dizziness Relates bowels are normal with no dark or bloody stools Urinating without a problem. States that she is still exhausted- some days can't get off couch. She states that she isn't sleeping well. She does not feel this is her depression. She has chronic left sciatica- which has been good, but in the last couple weeks has had sharp, electric like sensations in her left hip/groin area. States mostly with position changes and only lasts a few seconds. She is fasting today Past Medical History: Diagnosis Date Asthma Ganglion cyst Hypertension Irregular heart beat MDD (major depressive disorder) Migraine PVC (premature ventricular contraction) Past Surgical History: Procedure Laterality Date APPENDECTOMY CYST REMOVAL KNEE SURGERY Right 03/25/2018 Dr. Ramsay Family History Problem Relation Age of Onset Cancer Mother Cancer Father Cancer Other Hypertension Other Seizures Other Stroke Other Stroke Maternal Grandmother Heart failure Maternal Grandmother Breast cancer Neg Hx Allergies Allergen Reactions Apple Itching Erythromycin GI Intolerance Influenza Virus Vaccines GI Intolerance Maple Flavor Itching Pork Derived (Porcine) Itching Amoxicillin Rash Black Pepper Swelling and Rash Cephalexin Rash Clarithromycin Rash Garlic Swelling and Rash Penicillins Rash Social History Socioeconomic History Marital status: Tobacco Use Smoking status: Never Smoker Smokeless tobacco: Never Used Vaping Use Vaping Use: Never used Substance and Sexual Activity Alcohol use: Yes Drug use: No Sexual activity: Yes Partners: Male Social Determinants of Health Financial Resource Strain: Low Risk Difficulty of Paying Living Expenses: Not hard at all Food Insecurity: No Food Insecurity Worried About Running Out of Food in the Last Year: Never true Ran Out of Food in the Last Year: Never true Transportation Needs: No Transportation Needs Lack of Transportation (Medical): No Lack of Transportation (Non-Medical): No Social Connections: Unknown Active Member of Clubs or Organizations: No Attends Club or Organization Meetings: Never Current Outpatient Medications: albuterol (Ventolin HFA) 90 mcg/actuation inhaler, Inhale 2 (two) puffs every 6 (six) hours as needed for wheezing ., Disp: 1 Inhaler, Rfl: 1 cetirizine (ZYRTEC) 10 MG tablet, Take 10 mg by mouth every evening ., Disp: , Rfl: cholecalciferol, vitamin D3, 5,000 unit Tab tablet, Take by mouth daily ., Disp: , Rfl: cyanocobalamin (B-12) 1000 MCG tablet, Take 5,000 mcg by mouth daily ., Disp: , Rfl: fexofenadine (LANA) 180 MG tablet, Take 180 mg by mouth daily ., Disp: , Rfl: meclizine (ANTIVERT) 25 mg tablet, Take 1 (one) tablet (25 mg total) by mouth 3 (three) times a day as needed ., Disp: 30 tablet, Rfl: 2 polyethylene glycol (GLYCOLAX) 17 gram/dose powder, Take 17 (seventeen) g by mouth daily ., Disp: 1530 g, Rfl: 3 tiZANidine (Zanaflex) 4 MG tablet, Take up to 3 (three) tablets (12 mg total) by mouth at bedtime., Disp: 270 tablet, Rfl: 3 olmesartan (BENICAR) 40 MG tablet, Take 1 (one) tablet (40 mg total) by mouth daily ., Disp: 90 tablet, Rfl: 1 BP (!) 142/92 Comment: left arm, regular cuff, manual Pulse (!) 59 Temp 97.8 F (36.6 C) Ht 5' 7.13 Wt 78.7 kg (173 lb 6.4 oz) SpO2 98% BMI 27.06 kg/m Review of Systems Constitutional: Positive for fatigue. Negative for appetite change, chills, fever and unexpected weight change. HENT: Negative for congestion, dental problem, rhinorrhea, sore throat and trouble swallowing. Eyes: Negative. Negative for visual disturbance. Respiratory: Negative for apnea, cough and shortness of breath. Cardiovascular: Negative for chest pain, palpitations and leg swelling. Gastrointestinal: Negative for abdominal distention, blood in stool, constipation, diarrhea, nausea and rectal pain. Endocrine: Negative. Genitourinary: Negative for difficulty urinating, dysuria, frequency, menstrual problem and urgency. Musculoskeletal: Positive for arthralgias and myalgias. Negative for back pain and joint swelling. Skin: Negative. Allergic/Immunologic: Positive for environmental allergies. Neurological: Negative for dizziness, syncope, numbness and headaches. Hematological: Negative. Psychiatric/Behavioral: Positive for sleep disturbance (night terrors). Negative for dysphoric mood. The patient is not nervous/anxious. Objective: Physical Exam Vitals reviewed. Constitutional: Appearance: She is well-developed. HENT: Head: Normocephalic and atraumatic. Right Ear: Hearing, tympanic membrane, ear canal and external ear normal. Left Ear: Hearing, tympanic membrane, ear canal and external ear normal. Nose: Nose normal. Mouth/Throat: Lips: [place]. Mouth: Mucous membranes are moist. Pharynx: Uvula midline. Eyes: General: Lids are normal. Extraocular Movements: Extraocular movements intact. Conjunctiva/sclera: Conjunctivae normal. Pupils: Pupils are equal, round, and reactive to light. Neck: Thyroid: No thyromegaly. Vascular: No carotid bruit. Trachea: Trachea normal. Cardiovascular: Rate and Rhythm: Normal rate and regular rhythm. Heart sounds: Normal heart sounds, S1 normal and S2 normal. Pulmonary: Effort: Pulmonary effort is normal. No accessory muscle usage or respiratory distress. Breath sounds: Normal breath sounds. Abdominal: General: Bowel sounds are decreased. There is no distension. Palpations: Abdomen is soft. Abdomen is not rigid. Tenderness: There is no abdominal tenderness. There is no guarding. Musculoskeletal: Cervical back: Normal range of motion and neck supple. Left hip: No deformity, tenderness or crepitus. Normal range of motion. Right lower leg: No edema. Left lower leg: No edema. Lymphadenopathy: Cervical: No cervical adenopathy. Skin: General: Skin is warm and dry. Neurological: Mental Status: She is alert and oriented to person, place, and time. Cranial Nerves: Cranial nerves are intact. Sensory: No sensory deficit. Motor: Motor function is intact. Coordination: Coordination is intact. Gait: Gait is intact. Psychiatric: Mood and Affect: Mood normal. Speech: Speech normal. Behavior: Behavior normal. Cognition and Memory: Cognition normal. Assessment/Plan: Diagnoses and all orders for this visit: Annual physical exam Comments: Reviewed PMH, PSH, FMH, social hx. Discussed preventative needs and immunizations. Labs today. [facility] for pap and mammo- will get records. Orders: - CBC and Differential; Future - Comprehensive Metabolic Panel; Future - Lipid Panel; Future - POC Urinalysis Dipstick Left hip pain Comments: Will get xray- question if relation to her chronic back concerns but want to r/u hip pathology. Encouraged stretching Orders: - XR Hip Left With Pelvis 2-3 Views (Routine); Future Essential hypertension Comments: No med today- home logs are stable and recent visit with cardio with excellent levels. Orders: - olmesartan (BENICAR) 40 MG tablet; Take 1 (one) tablet (40 mg total) by mouth daily . Palpitations Comments: Established with [facility] and recent full cardiac exam- seeing this week- all testing benign Orders: - Magnesium Level; Future - TSH with Reflex Free T4; Future Eosinophilic esophagitis Comments: Is established with GI and [facility]- symptoms are improved at this time. Vitamin D deficiency Comments: checking levels and will adjust plan as appropriate Orders: - Vitamin D, Total, 25-OH; Future Vitamin B12 deficiency Comments: checking levels and will adjust plan as appropriate Orders: - Vitamin B12; Future documented in this encounter [facility] 05-08-2021 Miscellaneous Notes Pt. notified of results. Voices understanding. No questions/ concerns at this time, Caro Tristan RN ----- Message from Alida Monreal APRN.CNP sent at 05/07/2021 9:38 PM EDT ----- Please call patient and notify her echocardiogram is with grossly normal structure and function. Thank you! Left message for to call [facility] for test results. [facility] phone number provided. Alida Martinez LPN ----- Message from Alida Monreal APRN.CNP sent at 05/07/2021 9:43 PM EDT ----- Please call patient and notify her monitor was without significant arrhythmia. Thank you! documented in this encounter [facility] 05-07-2021 Miscellaneous Notes Please call patient and notify her echocardiogram is with grossly normal structure and function. Thank you! documented in this encounter [facility] 11-14-2020 History of Present illness Narrative Subjective: Patient ID: Teresa Cash is a 44 y.o. female. HPI Teresa presents today for chronic disease management She did establish with GI near her home- diagnosed with eosinophilic esophagitis- however, had full allergy panel, through them, and no answers- she has tried multiple PPI, including nexium, omeprazole, pantoprazole, lansoprazole, without improvement. She is aware that not treating this can lead to cellular changes and would like to possibly get a second opinion. 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 She has been very fatigued, to the point of exhaustion, needing multiple naps. She also has had a lot of hair loss . She was treated by her insurance [employer] for sinus infection last week with a ZPak- states bilateral ear pressure still and a lot of head pressure but all other symptoms are improved. She states that if she takes her BP meds she has normal BP at home- she has had a GÓMEZ for 2 days and was concerned her BP would be high- she has not taken her meds today- does forget at times. She has had no recent vertigo. Past Medical History: Diagnosis Date Asthma Ganglion cyst Hypertension Irregular heart beat MDD (major depressive disorder) Migraine PVC (premature ventricular contraction) Past Surgical History: Procedure Laterality Date APPENDECTOMY CYST REMOVAL KNEE SURGERY Right 03/25/2018 Dr. Ramsay Family History Problem Relation Age of Onset Cancer Mother Cancer Father Cancer Other Hypertension Other Seizures Other Stroke Other Stroke Maternal Grandmother Heart failure Maternal Grandmother Breast cancer Neg Hx Allergies Allergen Reactions Apple Itching Erythromycin GI Intolerance Influenza Virus Vaccines GI Intolerance Maple Flavor Itching Pork Derived (Porcine) Itching Amoxicillin Rash Black Pepper Swelling and Rash Cephalexin Rash Clarithromycin Rash Garlic Swelling and Rash Penicillins Rash Social History Socioeconomic History Marital status: Spouse name: Not on file Number of children: Not on file Years of education: Not on file Highest education level: Not on file Occupational History Not on file Tobacco Use Smoking status: Never Smoker Smokeless tobacco: Never Used Vaping Use Vaping Use: Never used Substance and Sexual Activity Alcohol use: Yes Drug use: No Sexual activity: Yes Partners: Male Other Topics Concern Not on file Social History Narrative Not on file Social Determinants of Health Financial Resource Strain: Difficulty of Paying Living Expenses: Not on file Food Insecurity: Worried About Running Out of Food in the Last Year: Not on file Ran Out of Food in the Last Year: Not on file Transportation Needs: Lack of Transportation (Medical): Not on file Lack of Transportation (Non-Medical): Not on file Physical Activity: Days of Exercise per Week: Not on file Minutes of Exercise per Session: Not on file Stress: Feeling of Stress : Not on file Social Connections: Frequency of Communication with Friends and Family: Not on file Frequency of Social Gatherings with Friends and Family: Not on file Attends Religion Services: Not on file Active Member of Clubs or Organizations: Not on file Attends Club or Organization Meetings: Not on file Marital Status: Not on file Housing Stability: Unable to Pay for Housing in the Last Year: Not on file Number of Places Lived in the Last Year: Not on file Unstable Housing in the Last Year: Not on file Current Outpatient Medications: albuterol (Ventolin HFA) 90 mcg/actuation inhaler, Inhale 2 (two) puffs every 6 (six) hours as needed for wheezing ., Disp: 1 Inhaler, Rfl: 1 cetirizine (ZyrTEC) 10 MG tablet, Take 10 mg by mouth every evening ., Disp: , Rfl: cholecalciferol, vitamin D3, (Vitamin D3) 5,000 unit Tab tablet, Take by mouth daily ., Disp: , Rfl: cyanocobalamin (vitamin B-12) 1000 MCG tablet, Take 5,000 mcg by mouth daily ., Disp: , Rfl: epinastine 0.05 % ophthalmic solution, Administer 1 drop to both eyes 2 (two) times a day ., Disp: 10 mL, Rfl: 5 fexofenadine (LANA) 180 MG tablet, Take 180 mg by mouth daily ., Disp: , Rfl: meclizine (ANTIVERT) 25 mg tablet, Take 1 (one) tablet (25 mg total) by mouth 3 (three) times a day as needed ., Disp: 30 tablet, Rfl: 2 olmesartan (BENICAR) 40 MG tablet, Take 1 (one) tablet (40 mg total) by mouth daily ., Disp: 90 tablet, Rfl: 1 polyethylene glycol (GLYCOLAX) 17 gram/dose powder, Take 17 (seventeen) g by mouth daily ., Disp: 1530 g, Rfl: 3 tiZANidine (Zanaflex) 4 MG tablet, Take up to 3 (three) tablets (12 mg total) by mouth at bedtime., Disp: 270 tablet, Rfl: 3 BP (!) 132/92 Comment: left arm, regular cuff, manual Pulse 72 Temp 98.3 F (36.8 C) Wt 75.4 kg (166 lb 3.2 oz) SpO2 98% BMI 25.27 kg/m Review of Systems Constitutional: Positive for fatigue. Negative for appetite change, chills, fever and unexpected weight change. HENT: Positive for ear discharge and sinus pressure (but improved). Negative for trouble swallowing. Eyes: Negative. Negative for visual disturbance. Respiratory: Negative for cough and shortness of breath. Cardiovascular: Negative for chest pain, palpitations and leg swelling. Gastrointestinal: Positive for abdominal distention (bloating/dysphagia with eating). Negative for abdominal pain. Endocrine: Hair loss Genitourinary: Positive for vaginal bleeding. Musculoskeletal: Negative for arthralgias, back pain, joint swelling and myalgias. Skin: Negative. Neurological: Positive for headaches. Negative for dizziness. Hematological: Negative. Psychiatric/Behavioral: Negative for agitation, dysphoric mood and sleep disturbance. The patient is not nervous/anxious. Objective: Physical Exam Vitals reviewed. Constitutional: Appearance: She is well-developed. HENT: Head: Normocephalic and atraumatic. Right Ear: Hearing and external ear normal. Tympanic membrane is bulging. Left Ear: Hearing and external ear normal. Tympanic membrane is bulging. Ears: Comments: Slight bulge to bilateral TM with some redness to canal Nose: Nose normal. Right Sinus: No maxillary sinus tenderness or frontal sinus tenderness. Left Sinus: No maxillary sinus tenderness or frontal sinus tenderness. Mouth/Throat: Lips: [place]. Pharynx: Oropharynx is clear. Eyes: General: Lids are normal. Conjunctiva/sclera: Conjunctivae normal. Neck: Thyroid: No thyromegaly. Trachea: Trachea normal. Cardiovascular: Rate and Rhythm: Normal rate and regular rhythm. Heart sounds: Normal heart sounds, S1 normal and S2 normal. Pulmonary: Effort: Pulmonary effort is normal. No accessory muscle usage or respiratory distress. Breath sounds: Normal breath sounds. Musculoskeletal: General: No tenderness. Normal range of motion. Cervical back: Normal range of motion and neck supple. Right lower leg: No edema. Left lower leg: No edema. Lymphadenopathy: Cervical: No cervical adenopathy. Skin: General: Skin is warm and dry. Neurological: Mental Status: She is alert and oriented to person, place, and time. Gait: Gait is intact. Psychiatric: Mood and Affect: Mood normal. Behavior: Behavior normal. Assessment/Plan: Diagnoses and all orders for this visit: Essential hypertension Comments: Stable with consistent use- reminded on importance of compliace- continue current regimen Orders: - olmesartan (BENICAR) 40 MG tablet; Take 1 (one) tablet (40 mg total) by mouth daily . Anemia, unspecified type Comments: checking levels and will then make further plan- has had increased vaginal bleeding- has been following with [facility] Orders: - CBC and Differential; Future - Ferritin; Future - Iron and TIBC; Future Hair loss Comments: checking labs to assure no abnormality Orders: - TSH with Reflex Free T4; Future Eosinophilic esophagitis Comments: Diagnosed by GI- had full allergy panel by them, all negative- strongly recommend follow up for further plan, discussed possible second opinion with [facility] (dysfunctional uterine bleeding) Comments: Established with [facility] and has had biopsy, which was benign- declined further hormone tx- documented in this encounter [facility] 10-09-2020 Miscellaneous Notes Requested Prescriptions Pending Prescriptions Disp Refills tiZANidine (Zanaflex) 4 MG tablet 270 tablet 3 Sig: Take up to 3 (three) tablets (12 mg total) by mouth at bedtime. Last OV: 04/2020 Has follow up scheduled for 10/2020 ----- Message from Jamie Chávez sent at 10/09/2020 11:08 AM EDT ----- Regarding: Rx Refill Contact: Brandie Cox [facility] MEDICATION REFILL REQUEST: PCP: Galilea Whitaker CNP Patient called 10/09/20 and is requesting a medication refill for tiZANidine (Zanaflex) 4 MG tablet This was confirmed from the current medication list found in the patients chart. Supply Requested: # of days: 90 days Method of receiving: Send to pharmacy Last set of flowsheet rows for OARRS report: OARRS/NARxCHECK Report Received and Assessed: No data found Date controlled substance agreement signed: No data found Date of last drug screen: No data found Functional Assessment: No data found Will this refill be sent to the preferred pharmacy listed below? Yes Preferred pharmacies: [facility]/pharmacy #[id number] - [facility] [address] [address] [address] [facility] [place] [id number] Pt Call Back Number Patient call back message sent to the primary care clinical pool. Jamie Chávez . documented in this encounter [facility] Diagnosis Essential hypertension- Primary Unspecified essential hypertension Anemia, unspecified type Hair loss Unspecified alopecia Eosinophilic esophagitis DUB (dysfunctional uterine bleeding) Other disorder of menstruation and other abnormal bleeding from female genital tract [facility] Pal[facility]ations [facility] Diagnosis Annual physical exam- Primary Routine general medical examination at a health care facility Left hip pain Pain in joint, pelvic region and thigh Essential hypertension Unspecified essential hypertension Palpitations Eosinophilic esophagitis Vitamin D deficiency Vitamin B12 deficiency Other B-complex deficiencies [facility] Diagnosis Palpitations- Primary Sleep terrors Sleep arousal disorder Primary hypertension Unspecified essential hypertension [facility] Diagnosis Dream enactment behavior- Primary [facility]* Diagnosis Hypersomnia- Primary Hypersomnia, unspecified documented in this encounter [facility] note* Diagnosis RLS (restless legs syndrome)- Primary Restless legs syndrome (RLS) Chronic insomnia Insomnia, unspecified documented in this encounter [facility] note* Diagnosis Annual physical exam- Primary Routine general medical examination at a health care facility Chronic migraine without aura without status migrainosus, not intractable Essential hypertension Unspecified essential hypertension Vitamin D deficiency Vitamin B12 deficiency Other B-complex deficiencies Vertigo Dizziness and giddiness Psychophysiological insomnia Persistent disorder of initiating or maintaining sleep [facility] Diagnosis Generalized abdominal pain- Primary Abdominal pain, generalized [facility] Diagnosis Arthralgia, unspecified joint- Primary Chronic migraine without aura without status migrainosus, not intractable Essential hypertension Unspecified essential hypertension Fatigue, unspecified type Generalized hypermobility of joints Other chronic gastritis without hemorrhage [facility] Diagnosis Pain in joint, multiple sites- Primary Benign joint hypermobility syndrome documented in this encounter [facility] note* Diagnosis Herpes labialis- Primary Herpes simplex without mention of complication [facility] Diagnosis Herpes labialis Herpes simplex without mention of complication documented in this encounter [facility] for referral (narrative)* Diagnostic Procedure Only (Routine) - Pending Review Specialty Diagnoses / Procedures Referred By Rianna james Referred To Contact [facility] Diagnoses Dream enactment behavior Procedures MULTIPLE SLEEP LATENCY TEST 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 PRACTICE MANAGER SLEEP LATENCY/MAINT OF WAKEFULNESS TSTG Byron Alexander MD [address] [address] [place] [address] Referral ID Status Reason Start Date Expiration Date Visits Requested Visits Authorized [id number] Pending Review Auto-Generat ed Referral 08/02/2021 08/02/2022 1 1 [facility] for visit Narrative* Outpatient Procedure (Routine) - Closed Specialty Diagnoses / Procedures Referred By Rianna james Referred To [facility] Diagnoses Palpitations Procedures ECHO ECHO TTHRC R-T 2D W/WOM-MODE COMPL SPEC&COLR D Alida Monreal, WARP SPOOLER.PROFILE GRINDER TECHNICIAN [address] [place] [address] [facility] [address] [place] [address] Referral ID Status Reason Start Date Expiration Date V isits Requested Visits Authorized [id number] Closed Auto-Generate d Referral 04/09/2021 04/09/2022 1 1 [facility] Assessments Diagnosis Visit for screening mammogra m Diagnosis Annual physical exam - Prima ry Routine general medical examination at a health care facility Other specified hearing loss of both ears Chronic idiopathic constipat ion Unspecified constipation PVC (premature ventricular c ontraction) Other premature beats Essential hypertension Unspecified essential hypertension Vitamin D deficiency Major depressive disorder, r ecurrent, severe without psychotic features (HCC) Diagnosis Essential hypertension - Tanna ojeda Unspecified essential hypertension Chronic migraine without aur a without status migrainosus, not intractable Major depressive disorder, r ecurrent, severe without psychotic features (HCC) Multiple food allergies Diagnosis Essential hypertension - Tanna ojeda Unspecified essential hypertension Chronic pain of right knee High frequency hearing loss of both ears Diagnosis Forearm injury, right, initi al encounter - Primary Hematoma Contusion of unspecified site Diagnosis Forearm injury, right, initi al encounter Diagnosis Encounter for preadmission testing- Primary Essential hypertension Unspecified essential hypertension Patellofemoral arthritis of right knee Orta's cyst of knee, right Chronic migraine without aura without status migrainosus, not intractable Diagnosis Malaise and fatigue Vertigo Dizziness and giddiness Bilateral hearing loss, unspecified hearing loss type Tinnitus of both ears Unspecified tinnitus Essential hypertension Unspecified essential hypertension Chronic migraine without aura without status migrainosus, not intractable Diagnosis Essential hypertension Unspecified essential hypertension B12 deficiency Macrocytosis Other specified diseases of blood and blood-forming organs Diagnosis Essential hypertension Unspecified essential hypertension Diagnosis Screening for colon cancer Special screening for malignant neoplasms, colon Family history of GI tract cancer Family history of malignant neoplasm of gastrointestinal tract Annual physical exam Routine general medical examination at a health care facility Vitamin D deficiency Essential hypertension Unspecified essential hypertension Generalized abdominal pain Abdominal pain, generalized Vitamin B12 deficiency Other B-complex deficiencies Fatigue, unspecified type Diagnosis Cough Weight loss Loss of weight Diagnosis Weight loss Loss of weight Skin fissures Other specified disorder of skin Cough Burning tongue Glossodynia Diagnosis Essential hypertension- Primary Unspecified essential hypertension Chronic idiopathic constipation Unspecified constipation Chronic migraine without aura without status migrainosus, not intractable Vitamin D deficiency Diagnosis B12 deficiency- Primary Diagnosis Gastroesophageal reflux disease without esophagitis- Primary Esophageal reflux Diagnosis Annual physical exam- Primary Routine general medical examination at a health care facility Environmental and seasonal allergies Chronic idiopathic constipation Unspecified constipation Vitamin D deficiency Vitamin B12 deficiency Other B-complex deficiencies Tinnitus of both ears Unspecified tinnitus Right hip pain Pain in joint, pelvic region and thigh Diagnosis Left ovarian cyst- Primary Other and unspecified ovarian cyst Diagnosis Left otitis media, unspecified otitis media type- Primary Environmental and seasonal allergies Vertigo Dizziness and giddiness Diagnosis Essential hypertension Unspecified essential hypertension Instructions * Patient Instructions - Galilea Whitaker CNP - 04/10/2017 9:01 AM EST Please let me know if you do not hear from the eye doctor or hearing tests in the next 2 weeks! in this encounter* Patient Instructions - Jackson Cruz MD - 11/06/2017 10:36 AM EDT Formatting of this note may be different from the original. Hematoma: Care Instructions Your Care Instructions A hematoma is a bad bruise. It happens when an injury causes blood to collect and pool under the skin. The pooling blood gives the skin a spongy, rubbery, lumpy feel. A hematoma usually is not a cause for concern. It is not the same thing as a blood clot in a vein, and it does not cause blood clots. Follow-up care is a wolff part of your treatment and safety. Be sure to make and go to all appointments, and call your doctor if you are having problems. It's also a good idea to know your test resultsand keep a list of the medicines you take. How can you care for yourself at home? Rest and protect the bruised area. Put ice or a cold pack on the area for 10 to 20 minutes at a time. Prop up the bruised area on a pillow when you ice it or anytime you sit or lie down during the next3 days. Try to keep it above the level of your heart. This will help reduce swelling. Wrapping the bruised area with an elastic bandage such as an [place] wrap will help decrease swelling. Don't wrap it too tightly, as this can cause more swelling below the affected area. Take an mzii-stj-cjglniy pain medicine, such as acetaminophen (Tylenol), ibuprofen (Advil, Motrin),or naproxen (Aleve). Do not take two or more pain medicines at the same time unless the doctor told you to. Many pain medicines have acetaminophen, which is Tylenol. Too much acetaminophen (Tylenol) can be harmful. When should you call for help? Call your doctor now or seek immediate medical care if: ? You have signs of skin infection, such as: Increased pain, swelling, warmth, or redness. Red streaks leading from the area. Pus draining from the area. A fever. ?Watch closely for changes in your health, and be sure to contact your doctor if: ? The bruise lasts longer than 4 weeks. ? The bruise gets bigger or becomes more painful. ? You do not get better as expected. Where can you learn more? Log into your personal health record on [email or web address] and enter P911 in the Education box to learn more about Hematoma: Care Instructions. Current as of: December 30, 2016 Content Version: 11.6 2185-8031 [employer]. Care instructions adapted under license by your healthcare professional. If you have questions about a medical condition or this instruction, always ask your healthcare professional. [employer] disclaims any warranty or liability for your use of this information. in this encounter* Patient Instructions* Galilea Whitaker CNP - 02/26/2019 8:45 AM EST Please let me know if you do not hear to schedule your colonoscopy in the next 2 weeks! Make sure you tell them you want to do it at the [facility]. Please try a probiotic daily. I would also recommend watching your diet- if this is not helping your sleep and stomach, please let me know!! documented in this encounter Summary Purpose Family History No Family History Records FoundNo Family History Records FoundNo Family History Records FoundNo Family History Records FoundNo Family History Records FoundNo Family History Records FoundNo Family History Records FoundNo Family History Records Found Advance Directives No Advanced Directives Records FoundLatest Code Status on File Code Status Date Activated Date Inactivated Comments Full Code 01/15/2016 11:17 PM 01/16/2016 6:45 PM Documents on File Type Date Recorded Patient Flap Lining Binder Expl anation Advance Directives and Livin g Will 07/30/2018 7:39 AM Latest Code Status on File Code Status Date Activated Date Inactivated Comments Full Code 01/15/2016 11:17 PM 01/16/2016 6:45 PM Documents on File Type Date Recorded Patient Flap Lining Binder Expl anation Advance Directives and Livin g Will 02/25/2019 8:44 AM Documents on File Type Date Recorded Patient Flap Lining Binder Expl anation Advance Directives and Livin g Will 06/24/2019 10:30 AM Documents on File Type Date Recorded Patient Flap Lining Binder Expl anation Advance Directives and Livin g Will 03/26/2019 10:45 AM Documents on File Type Date Recorded Patient Flap Lining Binder Expl anation Advance Directives and Livin g Will 10/15/2019 2:00 PM Documents on File Type Date Recorded Patient Flap Lining Binder Expl anation Advance Directives and Livin g Will 07/30/2018 7:39 AM Documents on File Type Date Recorded Patient Flap Lining Binder Expl anation Advance Directives and Livin g Will 02/20/2018 11:11 AM Documents on File Type Date Recorded Patient Flap Lining Binder Expl anation Advance Directives and Livin g Will 05/15/2021 9:37 AM Latest Code Status on File Code Status Date Activated Date Inactivated Comments Full Code 01/15/2016 11:17 PM 01/16/2016 6:45 PM Latest Code Status on File Code Status Date Activated Date Inactivated Comments Full Code 01/15/2016 11:17 PM 01/16/2016 6:45 PM History of Present Illness * Galilea Whitaker, PROFILE GRINDER TECHNICIAN - 03/17/2018 12:26 PM EST Subjective: Patient ID: Teresa Rico is a 42 y.o. female. HPI Ms. Rico presents today for preadmission testing Having right knee diagnostic arthroscopy with partial synovectomy and joint debridement with possible lateral retinacular release and open bakers cyst excision by Dr. Ramsay on 03/25/18 Relates has had 2 surgeries prior with anesthesia- first surgery was difficult to arouse, over 10 years ago. On second surgery she did fine. Relates certain adhesives do give her a rash, denies any reaction/allergy to iodine or latex She relates she does snore but no periods of stopping breathing. Low risk for apnea She relates no personal or family hx of clotting or bleeding disorder She denies CP/SOB, relates no bowel/bladder concerns. She remains very active but has not been exercising with knee pain. Past Medical History: Diagnosis Date Asthma Ganglion cyst Hypertension Irregular heart beat MDD (major depressive disorder) Migraine PVC (premature ventricular contraction) Past Surgical History: Procedure Laterality Date APPENDECTOMY CYST REMOVAL Family History Problem Relation Age of Onset Cancer Mother Cancer Father Cancer Other Hypertension Other Seizures Other Stroke Other Stroke Maternal Grandmother Heart failure Maternal Grandmother Breast cancer Neg Hx Allergies Allergen Reactions Apple Itching Erythromycin GI Intolerance Influenza Virus Vaccines GI Intolerance Maple Flavor Itching Pork Derived (Porcine) Itching Amoxicillin Rash Black Pepper Swelling and Rash Cephalexin Rash Clarithromycin Rash Garlic Swelling and Rash Penicillins Rash Social History Socioeconomic History Marital status: Single Spouse name: None Number of children: None Years of education: None Highest education level: None Social Needs Financial resource strain: None Food insecurity - worry: None Food insecurity - inability: None Transportation needs - medical: None Transportation needs - non-medical: None Occupational History None Tobacco Use Smoking status: Never Smoker Smokeless tobacco: Never Used Substance and Sexual Activity Alcohol use: Yes Comment: occasional Drug use: No Sexual activity: Yes Partners: Male Other Topics Concern None Social History Narrative None Current Outpatient Medications: azelastine (OPTIVAR) 0.05 % ophthalmic solution, , Disp: , Rfl: cetirizine (ZyrTEC) 10 MG tablet, Take 10 mg by mouth every evening ., Disp: , Rfl: olmesartan (BENICAR) 40 MG tablet, Take 1 (one) tablet (40 mg total) by mouth daily., Disp: 90 tablet, Rfl: 1 polyethylene glycol (GLYCOLAX) 17 gram/dose powder, Take 17 (seventeen) g by mouth daily., Disp: 1530 g, Rfl: 3 tiZANidine (ZANAFLEX) 4 MG tablet, Take up to 3 (three) tablets (12 mg total) by mouth at bedtime.,Disp: 270 tablet, Rfl: 3 fexofenadine (LANA) 180 MG tablet, Take 180 mg by mouth daily ., Disp: , Rfl: meclizine (ANTIVERT) 25 mg tablet, Take 0.5-1 tablets (12.5-25 mg total) by mouth 3 (three) times aday as needed, Disp: 30 tablet, Rfl: 0 topiramate (TOPAMAX) 25 MG tablet, Take up to 4 tablets in the evening for headaches., Disp: 480 tablet, Rfl: 3 BP 128/82 Pulse 74 Ht 5' 9 Wt 79.8 kg (176 lb) SpO2 98% BMI 25.99 kg/m Review of Systems Constitutional: Negative for appetite change, chills, fatigue, fever and unexpected weight change. HENT: Negative for congestion, dental problem, rhinorrhea, sore throat and trouble swallowing. Eyes: Negative. Negative for visual disturbance. Respiratory: Negative for cough and shortness of breath. Cardiovascular: Negative for chest pain, palpitations and leg swelling. Gastrointestinal: Negative for abdominal pain and nausea. Endocrine: Negative. Genitourinary: Negative for difficulty urinating, dysuria, frequency and urgency. Musculoskeletal: Positive for arthralgias and joint swelling (at times). Negative for back pain, gait problem and myalgias. Skin: Negative. Neurological: Negative for dizziness, syncope, numbness and headaches. Hematological: Negative. Psychiatric/Behavioral: Negative for dysphoric mood and sleep disturbance. The patient is not nervous/anxious. Objective: Physical Exam Constitutional: She is oriented to person, place, and time. She appears well- developed and well-nourished. HENT: Head: Normocephalic and atraumatic. Right Ear: Hearing, tympanic membrane, external ear and ear canal normal. Left Ear: Hearing, tympanic membrane, external ear and ear canal normal. Nose: Nose normal. Mouth/Throat: Uvula is midline, oropharynx is clear and moist and mucous membranes are normal. Eyes: Pupils are equal, round, and reactive to light. Conjunctivae, EOM and lids are normal. Neck: Trachea normal and normal range of motion. Neck supple. Carotid bruit is not present. No thyromegaly present. Cardiovascular: Normal rate, regular rhythm, S1 normal, S2 normal, normal heart sounds and intact distal pulses. No peripheral edema Pulmonary/Chest: Effort normal and breath sounds normal. No accessory muscle usage. No respiratory distress. Abdominal: Soft. Bowel sounds are normal. She exhibits no distension. There is no tenderness. Thereis no rigidity and no guarding. Musculoskeletal: She exhibits no edema. Lymphadenopathy: She has no cervical adenopathy. Neurological: She is alert and oriented to person, place, and time. She has normal strength. No cranial nerve deficit or sensory deficit. Gait normal. Skin: Skin is warm, dry and intact. Psychiatric: She has a normal mood and affect. Her speech is normal and behavior is normal. Cognition and memory are normal. Vitals reviewed. Assessment/Plan: Diagnoses and all orders for this visit: Encounter for preadmission testing Comments: completed full history and physical. She is a low risk for the planned surgery. Reviewed all meds and vitamins, as well as OTC medications Orders: - ECG 12 Lead; Future - ECG 12 Lead - CBC and Differential; Future - Basic Metabolic Panel; Future - PT/INR; Future - APTT; Future - POC Urinalysis Dipstick Essential hypertension Comments: Stable on current regimen- remains with some issues with compliance- will continue current regimen and advised to take morning meds on morning of surgery Orders: - ECG 12 Lead; Future - ECG 12 Lead - CBC and Differential; Future - Basic Metabolic Panel; Future - PT/INR; Future - APTT; Future - POC Urinalysis Dipstick Patellofemoral arthritis of right knee - CBC and Differential; Future - Basic Metabolic Panel; Future - PT/INR; Future - APTT; Future - POC Urinalysis Dipstick Orta's cyst of knee, right - CBC and Differential; Future - Basic Metabolic Panel; Future - PT/INR; Future - APTT; Future - POC Urinalysis Dipstick Chronic migraine without aura without status migrainosus, not intractable Comments: Handed Rx for bi-monthly medical massage Reviewed which meds to hold for 7 days prior to surgery, including OTC medications. in this encounter* Chery Saez DO - 10/01/2018 9:15 AM EDT Subjective Subjective HPI: Teresa Cash is a 42 y.o. female who presents to the Clinic on 10/01/18 for Chief Complaint Patient presents with Fatigue exausted, no energy x 4 weeks Diarrhea Emesis For the last 4 weeks she endorses having extreme fatigue and exhaustion. She is having to take napsin the middle of the day. 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 She does endorse also having constipation. She is getting handfuls of hair out in themorning and is having some dry skin around her nipples. She has a history of anemia that was presumed due to menorrhagia in the past. This has resolved now and she is only having 3-day periods. She also endorses having hot flashes/flushing for the last 5 years. Unrelated she did have nausea vomiting and diarrhea last night. She also had chills last night but not prior. However the symptoms have not been present prior. She has not traveled recently. Mom had a history of hypothyroid however this was diagnosed later in life. Hypertension Usually takes HTN medication, but given sickness has not taken. She also endorses that a lot of times she will have to take her Benicar every other day as she will get low blood pressures. Endorses a history of vertigo. She has also had tinnitus for several years. She states that she hada hearing exam about a year ago and was told she has hearing loss of both ears, borderline requiring hearing aids. She has never seen ENT. Health Maintenance Topic Date Due DEPRESSION SCREENING (PHQ9) 1975 Ophthalmology Exam 11/24/1983 SUBSTANCE ABUSE SCREENING (AUDIT-C) 04/10/2018 Wellness Visit 04/10/2018 Mammogram 02/20/2019 PAP SMEAR 06/27/2021 TETANUS EVERY 10 YR 04/05/2025 Smoker? Annual low dose screening CT: (if age 55-75, has 30 pack-year hx, and quit <15 years ago) Health Maintenance has been reviewed and updated. Review of Systems Constitutional: Positive for chills and fatigue. Negative for unexpected weight change. HENT: Positive for hearing loss and tinnitus. Negative for congestion and rhinorrhea. Respiratory: Positive for shortness of breath (dyspnea when exhausted). Cardiovascular: Negative for chest pain, palpitations and leg swelling. Gastrointestinal: Positive for constipation (normal for her), nausea and vomiting. Endocrine: Positive for heat intolerance (gets hot flashes for last 5 years although normal menstrual cycle, gets facial flushing). Skin: Negative for rash. Neurological: Negative for seizures and headaches. Psychiatric/Behavioral: The patient is not hyperactive. Past Medical History: Diagnosis Date Asthma Ganglion cyst Hypertension Irregular heart beat MDD (major depressive disorder) Migraine PVC (premature ventricular contraction) Past Surgical History: Procedure Laterality Date APPENDECTOMY CYST REMOVAL KNEE SURGERY Right 03/25/2018 Dr. Ramsay Family History Problem Relation Age of Onset Cancer Mother Cancer Father Cancer Other Hypertension Other Seizures Other Stroke Other Stroke Maternal Grandmother Heart failure Maternal Grandmother Breast cancer Neg Hx Social History Socioeconomic History Marital status: Single Spouse name: Not on file Number of children: Not on file Years of education: Not on file Highest education level: Not on file Occupational History Not on file Social Needs Financial resource strain: Not on file Food insecurity: Worry: Not on file Inability: Not on file Transportation needs: Medical: Not on file Non-medical: Not on file Tobacco Use Smoking status: Never Smoker Smokeless tobacco: Never Used Substance and Sexual Activity Alcohol use: Yes Comment: occasional Drug use: No Sexual activity: Yes Partners: Male Lifestyle Physical activity: Days per week: Not on file Minutes per session: Not on file Stress: Not on file Relationships Social connections: Talks on phone: Not on file Gets together: Not on file Attends yazidism service: Not on file Active member of club or organization: Not on file Attends meetings of clubs or organizations: Not on file Relationship status: Not on file Other Topics Concern Not on file Social History Narrative Not on file Personal and surgical history personally reviewed. Family history and social history personally reviewed. Family history is not pertinent other than noted in HPI. Current Outpatient Medications on File Prior to Visit Medication Sig Dispense Refill cetirizine (ZyrTEC) 10 MG tablet Take 10 mg by mouth every evening . fexofenadine (LANA) 180 MG tablet Take 180 mg by mouth daily . meclizine (ANTIVERT) 25 mg tablet Take 1 (one) tablet (25 mg total) by mouth 3 (three) times a day as needed . 30 tablet 2 polyethylene glycol (GLYCOLAX) 17 gram/dose powder Take 17 (seventeen) g by mouth daily. 1530 g 3 [DISCONTINUED] olmesartan (BENICAR) 40 MG tablet Take 40 mg by mouth daily . 1 [DISCONTINUED] tiZANidine (ZANAFLEX) 4 MG tablet Take up to 3 (three) tablets (12 mg total) by mouth at bedtime. 270 tablet 3 azelastine (OPTIVAR) 0.05 % ophthalmic solution ondansetron (ZOFRAN) 4 MG tablet Take 1 (one) tablet (4 mg total) by mouth every 8 (eight) hours asneeded for nausea . 20 tablet 0 topiramate (TOPAMAX) 25 MG tablet Take up to 4 tablets in the evening for headaches . 480 tablet 3 [DISCONTINUED] azithromycin (Z-CYRUS) 5 day dose pack Take 2 tabs x 1 day, then 1 tab daily . 6 tablet 0 [DISCONTINUED] valsartan (DIOVAN) 320 MG tablet Take 1 (one) tablet (320 mg total) by mouth daily .30 tablet 3 No current facility-administered medications on file prior to visit. Objective Objective Blood pressure (!) 168/110, pulse 75, temperature 98.2 F (36.8 C), temperature source Oral, height 5' 8 , weight 77.1 kg (170 lb), SpO2 97 %, not currently . Wt Readings from Last 3 Encounters: 10/01/18 77.1 kg (170 lb) 07/30/18 78 kg (172 lb) 07/16/18 77.3 kg (170 lb 6.4 oz) Body mass index is 25.85 kg/m . Physical Exam Constitutional: She is oriented to person, place, and time. She appears well- developed and well-nourished. No distress. Appears fatigued. HENT: Head: Normocephalic and atraumatic. Eyes: Pupils are equal, round, and reactive to light. EOM are normal. Slight pale conjunctiva Neck: Neck supple. Cardiovascular: Normal rate. Exam reveals no gallop and no friction rub. No murmur heard. Pulmonary/Chest: Breath sounds normal. No respiratory distress. She has no wheezes. She has no rales. Abdominal: Bowel sounds are normal. She exhibits no distension. Musculoskeletal: General: No edema. Neurological: She is alert and oriented to person, place, and time. Bicep reflex noted with delayed relaxation bilaterally Skin: Skin is warm and dry. No erythema. Psychiatric: She has a normal mood and affect. Her behavior is normal. Thought content normal. Labs reviewed including: Lab Results Component Value Date WBC 6.43 07/30/2018 HGB 13.9 07/30/2018 HCT 40.3 07/30/2018 MCV 95.5 07/30/2018 PLT 353 07/30/2018 Lab Results Component Value Date NA 141 07/30/2018 K 4.3 07/30/2018 CL 105 07/30/2018 BUN 12 07/30/2018 CREATININE 0.64 07/30/2018 GLUCOSE 124 (H) 07/30/2018 Lab Results Component Value Date CHOL 189 04/10/2017 HDL 89 (H) 04/10/2017 TRIG 72 04/10/2017 Lab Results Component Value Date HGBA1C 5.0 04/10/2017 Lab Results Component Value Date TSH 1.80 04/10/2017 I have personally reviewed labs. Assessment & Plan Assessment and Plan Diagnoses and all orders for this visit: Malaise and fatigue Comments: High suspicion for hypothyroid. Will check TSH. May have comorbid anemia, check CBC. Will check B12and CMP as well to rule out other etiology. Orders: - CBC and Differential; Future - TSH with Reflex Free T4; Future - Comprehensive Metabolic Panel; Future - Vitamin B12; Future Vertigo Comments: Patient has vertigo, hearing loss, and tinnitus which is a classic presentation of M ni re's. Will send to ENT for further evaluation. Encourage low-salt diet Orders: - Ambulatory referral to ENT; Future Bilateral hearing loss, unspecified hearing loss type Comments: As above Orders: - Ambulatory referral to ENT; Future Tinnitus of both ears Comments: As above. Orders: - Ambulatory referral to ENT; Future Essential hypertension Comments: Likely uncontrolled given she has not been able to take her medication and acute illness. Encouraged to go home and take Benicar as well as copious fluids. Discussed that she can take half of her medication dose daily instead of the full dose every other day and it may control her blood pressure saul more consistent basis without getting low. She will call us later with her blood pressure reading. Orders: - olmesartan (BENICAR) 40 MG tablet; Take 1 (one) tablet (40 mg total) by mouth daily . Chronic migraine without aura without status migrainosus, not intractable Comments: Handed Rx for Medical Massage. Continue current regimen, effective Orders: - tiZANidine (ZANAFLEX) 4 MG tablet; Take up to 3 (three) tablets (12 mg total) by mouth at bedtime. For any new medications prescribed today, patient was educated about indications for the medication, how to take the medication and potential side effects of the medications. FOLLOW-UP: 2 months tentatively. Chery Saez DO documented in this encounter* Chery Saez DO - 11/26/2018 10:00 AM EDT Subjective Subjective HPI: Teresa Cash is a 43 y.o. female who presents to the Clinic on 11/26/18 for Chief Complaint Patient presents with Follow-up Hypertension Well controlled. Compliant with medications along with low salt diet and limits caffeine. Up to date on labs. Has had episodes of low blood pressure with syncope, but declined ED. She had stopped hermedication for days, but BP went up so she restarted. Now back on the same dose and doing well. Shefeels this episode was likely dehydration. Half brother had stroke and HTN. Her biological father in 50s, suicide related to cancer. Had irregular heart rate as a child, and took Inderal. Has had PVCs that she has been hospitalized for in the past, but not recently. Has had kidney stones in the past. Macrocytosis B12 on low side of normal. Consider peripheral smear. Given B12 shot and instructed to take oral therapy. Taking B12 oral therapy. Health Maintenance Topic Date Due DEPRESSION SCREENING (PHQ9) 1975 Ophthalmology Exam 11/24/1983 Wellness Visit 04/10/2018 Mammogram 02/20/2019 PAP SMEAR 06/27/2021 TETANUS EVERY 10 YR 04/05/2025 Smoker Health Maintenance (if applicable) Annual low dose screening CT: (if age 55-75, has 30 pack-year hx, and quit <15 years ago) Health Maintenance has been reviewed and updated. Review of Systems Constitutional: Negative for chills and fever. HENT: Negative for congestion and hearing loss. Eyes: Negative for visual disturbance. Respiratory: Negative for cough, shortness of breath and wheezing. Cardiovascular: Negative for chest pain and palpitations. Gastrointestinal: Negative for constipation, diarrhea, nausea and vomiting. Neurological: Negative for light-headedness and headaches. Psychiatric/Behavioral: Negative for confusion. All other systems reviewed and negative, pertinent positives and negatives mentioned above. Past Medical History: Diagnosis Date Asthma Ganglion cyst Hypertension Irregular heart beat MDD (major depressive disorder) Migraine PVC (premature ventricular contraction) Past Surgical History: Procedure Laterality Date APPENDECTOMY CYST REMOVAL KNEE SURGERY Right 03/25/2018 Dr. Ramsay Family History Problem Relation Age of Onset Cancer Mother Cancer Father Cancer Other Hypertension Other Seizures Other Stroke Other Stroke Maternal Grandmother Heart failure Maternal Grandmother Breast cancer Neg Hx Social History Socioeconomic History Marital status: Spouse name: Not on file Number of children: Not on file Years of education: Not on file Highest education level: Not on file Occupational History Not on file Social Needs Financial resource strain: Not on file Food insecurity: Worry: Never true Inability: Never true Transportation needs: Medical: Not on file Non-medical: Not on file Tobacco Use Smoking status: Never Smoker Smokeless tobacco: Never Used Substance and Sexual Activity Alcohol use: Yes Comment: occasional Drug use: No Sexual activity: Yes Partners: Male Lifestyle Physical activity: Days per week: Not on file Minutes per session: Not on file Stress: Not on file Relationships Social connections: Talks on phone: Not on file Gets together: Not on file Attends yazidism service: Not on file Active member of club or organization: Not on file Attends meetings of clubs or organizations: Not on file Relationship status: Not on file Other Topics Concern Not on file Social History Narrative Not on file Personal and surgical history personally reviewed. Family history and social history personally reviewed. Family history is not pertinent other than noted in HPI. Current Outpatient Medications on File Prior to Visit Medication Sig Dispense Refill cetirizine (ZyrTEC) 10 MG tablet Take 10 mg by mouth every evening . fexofenadine (LANA) 180 MG tablet Take 180 mg by mouth daily . meclizine (ANTIVERT) 25 mg tablet Take 1 (one) tablet (25 mg total) by mouth 3 (three) times a day as needed . 30 tablet 2 olmesartan (BENICAR) 40 MG tablet Take 1 (one) tablet (40 mg total) by mouth daily . 90 tablet 1 tiZANidine (ZANAFLEX) 4 MG tablet Take up to 3 (three) tablets (12 mg total) by mouth at bedtime. 270 tablet 3 azelastine (OPTIVAR) 0.05 % ophthalmic solution polyethylene glycol (GLYCOLAX) 17 gram/dose powder Take 17 (seventeen) g by mouth daily. 1530 g 3 topiramate (TOPAMAX) 25 MG tablet Take up to 4 tablets in the evening for headaches . 480 tablet 3 [DISCONTINUED] ondansetron (ZOFRAN) 4 MG tablet Take 1 (one) tablet (4 mg total) by mouth every 8 (eight) hours as needed for nausea . 20 tablet 0 Current Facility-Administered Medications on File Prior to Visit Medication Dose Route Frequency Provider Last Rate Last Dose cyanocobalamin (B-12) injection 1,000 mcg 1,000 mcg Intramuscular Q30 Days Chery Saez, DO 1,000 mcg at 10/08/18 1049 Objective Objective Blood pressure 119/79, pulse 62, height 5' 8 , weight 76.5 kg (168 lb 11.2 oz), last menstrual period 11/08/2018, SpO2 95 %, not currently . Wt Readings from Last 3 Encounters: 11/26/18 76.5 kg (168 lb 11.2 oz) 10/01/18 77.1 kg (170 lb) 07/30/18 78 kg (172 lb) Body mass index is 25.65 kg/m . Physical Exam Constitutional: She is oriented to person, place, and time. She appears well- developed and well-nourished. No distress. HENT: Head: Normocephalic and atraumatic. Eyes: Pupils are equal, round, and reactive to light. Conjunctivae and EOM are normal. Neck: Neck supple. Cardiovascular: Normal rate. Exam reveals no gallop and no friction rub. No murmur heard. Pulmonary/Chest: Breath sounds normal. No respiratory distress. She has no wheezes. She has no rales. Abdominal: Bowel sounds are normal. She exhibits no distension. Musculoskeletal: General: No edema. Neurological: She is alert and oriented to person, place, and time. Skin: Skin is warm and dry. No erythema. Psychiatric: She has a normal mood and affect. Her behavior is normal. Thought content normal. Labs reviewed including: Lab Results Component Value Date WBC 6.19 11/26/2018 HGB 12.8 11/26/2018 HCT 38.6 11/26/2018 MCV 99.2 11/26/2018 PLT 346 11/26/2018 Lab Results Component Value Date NA 139 11/26/2018 K 4.5 11/26/2018 CL 103 11/26/2018 BUN 10 11/26/2018 CREATININE 0.53 11/26/2018 GLUCOSE 93 11/26/2018 Lab Results Component Value Date CHOL 189 04/10/2017 HDL 89 (H) 04/10/2017 TRIG 72 04/10/2017 Lab Results Component Value Date HGBA1C 5.0 04/10/2017 Lab Results Component Value Date TSH 0.63 10/01/2018 I have personally reviewed labs. Assessment & Plan Assessment and Plan Diagnoses and all orders for this visit: Essential hypertension Comments: Continue current regimen, check ultrasound to rule out any fibromuscular dysplasia as she was diagnosed at young age. Orders: - Basic Metabolic Panel; Future - Ultrasound renal artery duplex, complete; Future B12 deficiency Comments: Repeat today. Symptom improvement. Orders: - CBC and Differential; Future - Vitamin B12; Future Macrocytosis Comments: Repeat today, B12 replacement/supplementation currently. Orders: - CBC and Differential; Future For any new medications prescribed today, patient was educated about indications for the medication, how to take the medication and potential side effects of the medications. FOLLOW-UP: 3 months for annual. Chery Saez DO documented in this encounter* Galilea Whitaker, PROFILE GRINDER TECHNICIAN - 02/26/2019 1:19 PM EST Subjective: Patient ID: Teresa Cash is a 43 y.o. female. HPI Ms. 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 She states she has no stress She does c/o issues with sleep and extreme exhaustion. Was seen by Dr. Saez and started on Vitamin B12 but has had minimal improvement.She relates that he sleep is off - often will wake at 3am andbe unable to sleep. She also relates she will awaken some days, even after a full night's sleep, and be exhausted. She states that she has taken Tizanidine to sleep for the last 20 years and it's theonly thing that doesn't cause morning hang over feeling. Has been on Ambien, worked for sleep but made her sleep walk and do crazy things . She has been on Trazodone but the effect lasted too long in the morning. She felt nothing with melatonin. Relates she has had night terrors her whole life butthey are better recently. She snores but denies apneic episodes. Relates that she sleeps better if she takes a warm bath before bed. She states that she has worse exhaustion around her periods. She continues to have normal periods, every month. She relates that she has had a lot of GI upset and diarrhea- it does wake her up at night. States this is new in the last year. States nauseated, but no reflex. States diarrhea has been worse since starting B12. She does have blood in her stool at times but states that isn't new- worse with periods, when she is constipated. States that she has noticed when she eats a healthy diet she doesn't haveas many issues with this and with her sleep. She denies Cp/SOB, denies gómez/dizziness Relates more active since quitting work. States has had hot flashes for years, not new. She had Renal US yesterday, which was normal States that she was having some syncope and figured out that her BP would drop when she took Tums alot and then tizanidine. Has stopped that and symptoms have improved. She is fasting today Past Medical History: Diagnosis Date Asthma Ganglion cyst Hypertension Irregular heart beat MDD (major depressive disorder) Migraine PVC (premature ventricular contraction) Past Surgical History: Procedure Laterality Date APPENDECTOMY CYST REMOVAL KNEE SURGERY Right 03/25/2018 Dr. Ramsay Family History Problem Relation Age of Onset Cancer Mother Cancer Father Cancer Other Hypertension Other Seizures Other Stroke Other Stroke Maternal Grandmother Heart failure Maternal Grandmother Breast cancer Neg Hx Allergies Allergen Reactions Apple Itching Erythromycin GI Intolerance Influenza Virus Vaccines GI Intolerance Maple Flavor Itching Pork Derived (Porcine) Itching Amoxicillin Rash Black Pepper Swelling and Rash Cephalexin Rash Clarithromycin Rash Garlic Swelling and Rash Penicillins Rash Social History Socioeconomic History Marital status: Spouse name: Not on file Number of children: Not on file Years of education: Not on file Highest education level: Not on file Occupational History Not on file Social Needs Financial resource strain: Not on file Food insecurity Worry: Never true Inability: Never true Transportation needs Medical: Not on file Non-medical: Not on file Tobacco Use Smoking status: Never Smoker Smokeless tobacco: Never Used Substance and Sexual Activity Alcohol use: Yes Frequency: 4 or more times a week Drinks per session: 1 or 2 Comment: occasional Drug use: No Sexual activity: Yes Partners: Male Lifestyle Physical activity Days per week: Not on file Minutes per session: Not on file Stress: Not on file Relationships Social connections Talks on phone: Not on file Gets together: Not on file Attends yazidism service: Not on file Active member of club or organization: Not on file Attends meetings of clubs or organizations: Not on file Relationship status: Not on file Other Topics Concern Not on file Social History Narrative Not on file Current Outpatient Medications: cetirizine (ZyrTEC) 10 MG tablet, Take 10 mg by mouth every evening ., Disp: , Rfl: cyanocobalamin (vitamin B-12) 1000 MCG tablet, Take 5,000 mcg by mouth daily ., Disp: , Rfl: meclizine (ANTIVERT) 25 mg tablet, Take 1 (one) tablet (25 mg total) by mouth 3 (three) times a dayas needed ., Disp: 30 tablet, Rfl: 2 olmesartan (BENICAR) 40 MG tablet, Take 1 (one) tablet (40 mg total) by mouth daily ., Disp: 90 tablet, Rfl: 1 polyethylene glycol (GLYCOLAX) 17 gram/dose powder, Take 17 (seventeen) g by mouth daily., Disp: 1530 g, Rfl: 3 tiZANidine (ZANAFLEX) 4 MG tablet, Take up to 3 (three) tablets (12 mg total) by mouth at bedtime.,Disp: 270 tablet, Rfl: 3 azelastine (OPTIVAR) 0.05 % ophthalmic solution, , Disp: , Rfl: fexofenadine (LANA) 180 MG tablet, Take 180 mg by mouth daily ., Disp: , Rfl: topiramate (TOPAMAX) 25 MG tablet, Take up to 4 tablets in the evening for headaches . (Patient nottaking: Reported on 02/26/2019 .), Disp: 480 tablet, Rfl: 3 No current facility-administered medications for this visit. BP 134/82 (BP Location: Left arm, Patient Position: Sitting, BP Cuff Size: Adult) Pulse 78 Ht 5' 8 Wt 76.3 kg (168 lb 3.2 oz) SpO2 96% BMI 25.57 kg/m Review of Systems Constitutional: Positive for fatigue. Negative for appetite change, chills, fever and unexpected weight change. HENT: Negative for congestion, dental problem, rhinorrhea, sore throat and trouble swallowing. Eyes: Negative. Negative for visual disturbance. Respiratory: Negative for apnea, cough and shortness of breath. Cardiovascular: Negative for chest pain, palpitations and leg swelling. Gastrointestinal: Positive for abdominal pain (nausea/cramping), blood in stool and diarrhea. Negative for abdominal distention, constipation, nausea and rectal pain. Endocrine: Negative. Genitourinary: Negative for difficulty urinating, dysuria, frequency and urgency. Musculoskeletal: Negative for arthralgias, back pain, joint swelling and myalgias. Skin: Negative. Neurological: Negative for dizziness, syncope, numbness and headaches. Hematological: Negative. Psychiatric/Behavioral: Positive for sleep disturbance. Negative for dysphoric mood. The patient isnot nervous/anxious. Objective: Physical Exam Constitutional: She is oriented to person, place, and time. She appears well- developed and well-nourished. HENT: Head: Normocephalic and atraumatic. Right Ear: Hearing, tympanic membrane and external ear normal. Left Ear: Hearing, tympanic membrane and external ear normal. Nose: Nose normal. Mouth/Throat: Uvula is midline, oropharynx is clear and moist and mucous membranes are normal. Bilateral canals reddened Eyes: Pupils are equal, round, and reactive to light. Conjunctivae, EOM and lids are normal. Neck: Trachea normal and normal range of motion. Neck supple. Carotid bruit is not present. No thyromegaly present. Cardiovascular: Normal rate, regular rhythm, S1 normal, S2 normal, normal heart sounds and intact distal pulses. No peripheral edema Pulmonary/Chest: Effort normal and breath sounds normal. No accessory muscle usage. No respiratory distress. Abdominal: Soft. Bowel sounds are normal. She exhibits no distension. There is no abdominal tenderness. There is no rigidity and no guarding. Musculoskeletal: General: No edema. Lymphadenopathy: She has no cervical adenopathy. Neurological: She is alert and oriented to person, place, and time. She has normal strength. No cranial nerve deficit or sensory deficit. Gait normal. Skin: Skin is warm, dry and intact. Psychiatric: She has a normal mood and affect. Her speech is normal and behavior is normal. Cognition and memory are normal. Vitals reviewed. Assessment/Plan: Diagnoses and all orders for this visit: Annual physical exam Comments: Reviewed PMH, PSH, FMH, social hx. Discussed preventative needs and immunizations. Labs today. Orders: - Comprehensive Metabolic Panel; Future - CBC and Differential; Future - TSH; Future - T4, Free; Future - Vitamin D, Total, 25-OH; Future - Vitamin B12; Future - Lipid Panel; Future - Iron and TIBC; Future - Ferritin; Future - POC Urinalysis Dipstick Screening for colon cancer Comments: With known family hx but unknown source, will get colonoscopy Orders: - Ambulatory referral to Gastroenterology; Future Family history of GI tract cancer Comments: as above Orders: - Ambulatory referral to Gastroenterology; Future Vitamin D deficiency Comments: checking levels and will adjust plan as appropriate Orders: - Vitamin D, Total, 25-OH; Future Essential hypertension Comments: Stable, continue current regimen Orders: - CBC and Differential; Future - TSH; Future - Lipid Panel; Future Generalized abdominal pain Comments: Poor diet choices- question if causing some insomnia. Discussed probiotic daily and will work on diet, keep diet journal Vitamin B12 deficiency Comments: taking oral supplementation- will check levels today and make further plan Orders: - Vitamin B12; Future Fatigue, unspecified type Comments: Low sleep apnea concern but does have some night terrors; ?if antidepressant would help. Also ?relation to recent abd pain. Will adjust diet and then regroup Orders: - TSH; Future - T4, Free; Future - Iron and TIBC; Future - Ferritin; Future ? Perimenopausal- discussed possible SSRI for sx benefit- will readdress with diet changes documented in this encounter* Galilea Whitaker CNP - 07/16/2019 8:06 AM EDT Subjective: Patient ID: Teresa Cash is a 43 y.o. female. HPI Ms. Cash presents today for several acute concerns Relates that her weight is down- she feels more than the scale says because she is building up a lot of muscle mass with exercise in the yard. She relates that she will only eat a small amount and feel full. She has to force herself to eat. Relates that she has large fissures on her feet- states working in yard in sandals- has tried lotion/diabetic formula, and thick lotions without improvement Relates that about 6 x in 2 months she has awoken with feeling like her tongue is burning- she has bitten her tongue in the middle of the night. States that she will notice ulcers on the tip of her tongue. She woke herself up recently punching herself in the face and then developed a sore. She feels like she is sleeping well and has no stress. Her does tell her she is more restless but she states nothing like her night terrors. She does continue to have a cough off/on, nonproductive. Past Medical History: Diagnosis Date Asthma Ganglion cyst Hypertension Irregular heart beat MDD (major depressive disorder) Migraine PVC (premature ventricular contraction) Past Surgical History: Procedure Laterality Date APPENDECTOMY CYST REMOVAL KNEE SURGERY Right 03/25/2018 Dr. Ramsay Family History Problem Relation Age of Onset Cancer Mother Cancer Father Cancer Other Hypertension Other Seizures Other Stroke Other Stroke Maternal Grandmother Heart failure Maternal Grandmother Breast cancer Neg Hx Allergies Allergen Reactions Apple Itching Erythromycin GI Intolerance Influenza Virus Vaccines GI Intolerance Maple Flavor Itching Pork Derived (Porcine) Itching Amoxicillin Rash Black Pepper Swelling and Rash Cephalexin Rash Clarithromycin Rash Garlic Swelling and Rash Penicillins Rash Social History Socioeconomic History Marital status: Spouse name: Not on file Number of children: Not on file Years of education: Not on file Highest education level: Not on file Occupational History Not on file Social Needs Financial resource strain: Not on file Food insecurity Worry: Never true Inability: Never true Transportation needs Medical: Not on file Non-medical: Not on file Tobacco Use Smoking status: Never Smoker Smokeless tobacco: Never Used Substance and Sexual Activity Alcohol use: Yes Frequency: 4 or more times a week Drinks per session: 1 or 2 Drug use: No Sexual activity: Yes Partners: Male Lifestyle Physical activity Days per week: Not on file Minutes per session: Not on file Stress: Not on file Relationships Social connections Talks on phone: Not on file Gets together: Not on file Attends yazidism service: Not on file Active member of club or organization: Not on file Attends meetings of clubs or organizations: Not on file Relationship status: Not on file Other Topics Concern Not on file Social History Narrative Not on file Current Outpatient Medications: albuterol (Ventolin HFA) 90 mcg/actuation inhaler, Inhale 2 (two) puffs every 6 (six) hours as needed for wheezing ., Disp: 1 Inhaler, Rfl: 1 azelastine (OPTIVAR) 0.05 % ophthalmic solution, , Disp: , Rfl: cetirizine (ZyrTEC) 10 MG tablet, Take 10 mg by mouth every evening ., Disp: , Rfl: fexofenadine (LANA) 180 MG tablet, Take 180 mg by mouth daily ., Disp: , Rfl: olmesartan (BENICAR) 40 MG tablet, Take 1 (one) tablet (40 mg total) by mouth daily ., Disp: 90 tablet, Rfl: 1 polyethylene glycol (GLYCOLAX) 17 gram/dose powder, Take 17 (seventeen) g by mouth daily., Disp: 1530 g, Rfl: 3 tiZANidine (ZANAFLEX) 4 MG tablet, Take up to 3 (three) tablets (12 mg total) by mouth at bedtime.,Disp: 270 tablet, Rfl: 3 cyanocobalamin (vitamin B-12) 1000 MCG tablet, Take 5,000 mcg by mouth daily ., Disp: , Rfl: meclizine (ANTIVERT) 25 mg tablet, Take 1 (one) tablet (25 mg total) by mouth 3 (three) times a dayas needed . (Patient not taking: Reported on 05/28/2019 .), Disp: 30 tablet, Rfl: 2 omeprazole (PRILOSEC) 40 MG capsule, Take 1 (one) capsule (40 mg total) by mouth daily ., Disp: 30 capsule, Rfl: 1 urea (CARMOL) 40 % Crea, Apply 1 application topically 2 (two) times a day ., Disp: 198 g, Rfl: 1 BP (!) 140/80 (BP Location: Left arm, Patient Position: Sitting, BP Cuff Size: Adult) Pulse 78 Ht 5' 8 Wt 72.5 kg (159 lb 12.8 oz) SpO2 98% BMI 24.30 kg/m Review of Systems Constitutional: Positive for fatigue. Negative for appetite change, chills, fever and unexpected weight change. HENT: Positive for mouth sores. Negative for postnasal drip, rhinorrhea and trouble swallowing. Tongue burning Eyes: Negative. Negative for visual disturbance. Respiratory: Positive for cough. Negative for apnea, chest tightness, shortness of breath and wheezing. Cardiovascular: Negative for chest pain, palpitations and leg swelling. Gastrointestinal: Negative for abdominal pain. Musculoskeletal: Negative for arthralgias, back pain, joint swelling and myalgias. Skin: Positive for wound. Neurological: Negative for dizziness, light-headedness, numbness and headaches. Hematological: Negative. Psychiatric/Behavioral: Positive for sleep disturbance. Negative for dysphoric mood. The patient isnot nervous/anxious. Objective: Physical Exam Constitutional: She is oriented to person, place, and time. She appears well- developed and well-nourished. HENT: Head: Normocephalic and atraumatic. Mouth/Throat: Uvula is midline, oropharynx is clear and moist and mucous membranes are normal. Orallesions present. No uvula swelling. No posterior oropharyngeal edema or posterior oropharyngeal erythema. Eyes: Conjunctivae and lids are normal. Neck: Trachea normal and normal range of motion. Neck supple. Carotid bruit is not present. No thyromegaly present. Cardiovascular: Normal rate, regular rhythm, S1 normal, S2 normal, normal heart sounds and intact distal pulses. No peripheral edema Pulmonary/Chest: Effort normal and breath sounds normal. No accessory muscle usage. No respiratory distress. Abdominal: Soft. Bowel sounds are normal. There is no abdominal tenderness. Musculoskeletal: Normal range of motion. General: No tenderness or edema. Neurological: She is alert and oriented to person, place, and time. Skin: Skin is warm, dry and intact. Bilateral balls of feet with large fissures, no drainage or swelling/redness Psychiatric: Her speech is normal and behavior is normal. Her mood appears anxious. Cognition and memory are normal. Vitals reviewed. Assessment/Plan: Diagnoses and all orders for this visit: Weight loss Comments: Will check labs today- question if it is lifestyle change/mood relation- will follow closely Orders: - Zinc; Future - Vitamin B12; Future - Hemoglobin A1c; Future - TSH; Future - T4, Free; Future - Lyme Disease IgG/IgM w/Western Blot Reflex, Blood; Future Skin fissures Comments: Will treat with Urea cream- discussed proper use, risks/benefits Orders: - Zinc; Future - Vitamin B12; Future - urea (CARMOL) 40 % Crea; Apply 1 application topically 2 (two) times a day . Cough Comments: Continues but off/on- if no improvement in the future will need to do CT scan Burning tongue Comments: Will check labs- do question relation to reflux and maybe possibly mood if having nightmares and reacting- will follow closely Orders: - Zinc; Future - Vitamin B12; Future - TSH; Future - T4, Free; Future documented in this encounter* Galilea Whitaker CNP - 10/19/2019 11:09 AM EDT Subjective: Patient ID: Teresa Cash is a 43 y.o. female. HPI Ms. Cash presents today for chronic disease management Had colonoscopy 08/05/[address] Mejia- multiple polyps, repeat in 3 years. Relates that miralax continues to be effective when taken. States fissures on her feet are better with use of Urea cream and wearing appropriate shoes in the garden She relates no further tongue burning but now states she has noticed it corresponds with when she has her night terrods. She states no further cough, thinks it was likely her allergies. Relates that she has a low grade GÓMEZ but migraines are stable. Denies CP/SOB, denies dizziness She has been trying to be more consistent with taking her meds and feels better overall. Past Medical History: Diagnosis Date Asthma Ganglion cyst Hypertension Irregular heart beat MDD (major depressive disorder) Migraine PVC (premature ventricular contraction) Past Surgical History: Procedure Laterality Date APPENDECTOMY CYST REMOVAL KNEE SURGERY Right 03/25/2018 Dr. Ramsay Family History Problem Relation Age of Onset Cancer Mother Cancer Father Cancer Other Hypertension Other Seizures Other Stroke Other Stroke Maternal Grandmother Heart failure Maternal Grandmother Breast cancer Neg Hx Allergies Allergen Reactions Apple Itching Erythromycin GI Intolerance Influenza Virus Vaccines GI Intolerance Maple Flavor Itching Pork Derived (Porcine) Itching Amoxicillin Rash Black Pepper Swelling and Rash Cephalexin Rash Clarithromycin Rash Garlic Swelling and Rash Penicillins Rash Social History Socioeconomic History Marital status: Spouse name: Not on file Number of children: Not on file Years of education: Not on file Highest education level: Not on file Occupational History Not on file Social Needs Financial resource strain: Not on file Food insecurity Worry: Never true Inability: Never true Transportation needs Medical: Not on file Non-medical: Not on file Tobacco Use Smoking status: Never Smoker Smokeless tobacco: Never Used Substance and Sexual Activity Alcohol use: Yes Frequency: 4 or more times a week Drinks per session: 1 or 2 Drug use: No Sexual activity: Yes Partners: Male Lifestyle Physical activity Days per week: Not on file Minutes per session: Not on file Stress: Not on file Relationships Social connections Talks on phone: Not on file Gets together: Not on file Attends yazidism service: Not on file Active member of club or organization: Not on file Attends meetings of clubs or organizations: Not on file Relationship status: Not on file Other Topics Concern Not on file Social History Narrative Not on file Current Outpatient Medications: albuterol (Ventolin HFA) 90 mcg/actuation inhaler, Inhale 2 (two) puffs every 6 (six) hours as needed for wheezing ., Disp: 1 Inhaler, Rfl: 1 azelastine (OPTIVAR) 0.05 % ophthalmic solution, , Disp: , Rfl: cetirizine (ZyrTEC) 10 MG tablet, Take 10 mg by mouth every evening ., Disp: , Rfl: fexofenadine (LANA) 180 MG tablet, Take 180 mg by mouth daily ., Disp: , Rfl: meclizine (ANTIVERT) 25 mg tablet, Take 1 (one) tablet (25 mg total) by mouth 3 (three) times a dayas needed ., Disp: 30 tablet, Rfl: 2 olmesartan (BENICAR) 40 MG tablet, Take 1 (one) tablet (40 mg total) by mouth daily ., Disp: 90 tablet, Rfl: 1 polyethylene glycol (GLYCOLAX) 17 gram/dose powder, Take 17 (seventeen) g by mouth daily ., Disp: 1530 g, Rfl: 3 tiZANidine (Zanaflex) 4 MG tablet, Take up to 3 (three) tablets (12 mg total) by mouth at bedtime.,Disp: 270 tablet, Rfl: 3 urea (CARMOL) 40 % Crea, Apply 1 application topically 2 (two) times a day ., Disp: 198 g, Rfl: 1 cyanocobalamin (vitamin B-12) 1000 MCG tablet, Take 5,000 mcg by mouth daily ., Disp: , Rfl: BP 128/84 Comment: left arm, regular cuff, manual Pulse 64 Temp 98.2 F (36.8 C) (Oral) Ht 5' 8 Wt 72.3 kg (159 lb 4.8 oz) SpO2 98% BMI 24.22 kg/m Review of Systems Constitutional: Negative for appetite change, chills, fatigue, fever and unexpected weight change. HENT: Negative for mouth sores and trouble swallowing. Eyes: Negative. Negative for visual disturbance. Respiratory: Negative for cough and shortness of breath. Cardiovascular: Negative for chest pain, palpitations and leg swelling. Gastrointestinal: Negative for abdominal pain. Musculoskeletal: Negative for arthralgias, back pain, joint swelling and myalgias. Skin: Negative. Neurological: Negative for dizziness, numbness and headaches. Hematological: Negative. Psychiatric/Behavioral: Negative for agitation, dysphoric mood and sleep disturbance. The patient is not nervous/anxious. Objective: Physical Exam Constitutional: She is oriented to person, place, and time. She appears well- developed and well-nourished. HENT: Head: Normocephalic and atraumatic. Mouth/Throat: Mucous membranes are normal. Neck: Trachea normal and normal range of motion. Neck supple. No thyromegaly present. Cardiovascular: Normal rate, regular rhythm, S1 normal, S2 normal, normal heart sounds and intact distal pulses. No peripheral edema Pulmonary/Chest: Effort normal and breath sounds normal. No accessory muscle usage. No respiratory distress. Musculoskeletal: Normal range of motion. General: No tenderness or edema. Neurological: She is alert and oriented to person, place, and time. Skin: Skin is warm, dry and intact. Psychiatric: She has a normal mood and affect. Cognition and memory are normal. Vitals reviewed. Assessment/Plan: Diagnoses and all orders for this visit: Essential hypertension Comments: Stable with consistent use- reminded on importance of compliace- continue current regimen Orders: - olmesartan (BENICAR) 40 MG tablet; Take 1 (one) tablet (40 mg total) by mouth daily . - Vitamin B12; Future - CBC and Differential; Future - Comprehensive Metabolic Panel; Future Chronic idiopathic constipation Comments: Will continue Miralax, tolerating well- reviewed importance of fluids. Orders: - polyethylene glycol (GLYCOLAX) 17 gram/dose powder; Take 17 (seventeen) g by mouth daily . Chronic migraine without aura without status migrainosus, not intractable Comments: Stable at this time. Continue current regimen Orders: - tiZANidine (Zanaflex) 4 MG tablet; Take up to 3 (three) tablets (12 mg total) by mouth at bedtime. Vitamin D deficiency Comments: checking levels, per pt request and will adjust plan as appropriate Orders: - Vitamin D, Total, 25-OH; Future documented in this encounter* Chery Saez DO - 10/08/2018 8:48 PM EDT B12 injections. documented in this encounter* Galilea Whitaker CNP - 04/14/2020 9:14 AM EST Subjective: Patient ID: Teresa Cash is a 44 y.o. female. PERCY Moore presents today for CPE: Last Colonoscopy : 08/05/19: Dr. Mejia- repeat 3 years Last Mammogram : states fall 2019- will get records Last PAP : 12/15/19- Dr. Chase- Last Stress Test:02/07/16: normal Immunizations: TDaP: 04/05/15 FLU: allergy Last CXR: 06/24/19 Normal Optho: [facility]: q6 months ENT: Dr. 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 Relates that she is really struggling with constipation- even when she takes miralax daily she barely has full BM. States that she is trying to increase her water but does drink a lot of sweet tea. She states that she is waking up at night with nausea- had episode of vomiting for 4 days- no one else sick that ate where she did. She states that she scheduled for next month with GI in [place]- She denies CP/SOB, denies GÓMEZ/dizziness. Has occasional vertigo- new ENT felt this was likely meniere's and wants her to call when she has episodes. She is fasting today Past Medical History: Diagnosis Date Asthma Ganglion cyst Hypertension Irregular heart beat MDD (major depressive disorder) Migraine PVC (premature ventricular contraction) Past Surgical History: Procedure Laterality Date APPENDECTOMY CYST REMOVAL KNEE SURGERY Right 03/25/2018 Dr. Ramsay Family History Problem Relation Age of Onset Cancer Mother Cancer Father Cancer Other Hypertension Other Seizures Other Stroke Other Stroke Maternal Grandmother Heart failure Maternal Grandmother Breast cancer Neg Hx Allergies Allergen Reactions Apple Itching Erythromycin GI Intolerance Influenza Virus Vaccines GI Intolerance Maple Flavor Itching Pork Derived (Porcine) Itching Amoxicillin Rash Black Pepper Swelling and Rash Cephalexin Rash Clarithromycin Rash Garlic Swelling and Rash Penicillins Rash Social History Socioeconomic History Marital status: Spouse name: Not on file Number of children: Not on file Years of education: Not on file Highest education level: Not on file Occupational History Not on file Social Needs Financial resource strain: Not on file Food insecurity Worry: Never true Inability: Never true Transportation needs Medical: Not on file Non-medical: Not on file Tobacco Use Smoking status: Never Smoker Smokeless tobacco: Never Used Substance and Sexual Activity Alcohol use: Yes Frequency: 2-3 times a week Drinks per session: 1 or 2 Drug use: No Sexual activity: Yes Partners: Male Lifestyle Physical activity Days per week: Not on file Minutes per session: Not on file Stress: Not on file Relationships Social connections Talks on phone: Not on file Gets together: Not on file Attends yazidism service: Not on file Active member of club or organization: Not on file Attends meetings of clubs or organizations: Not on file Relationship status: Not on file Other Topics Concern Not on file Social History Narrative Not on file Current Outpatient Medications: albuterol (Ventolin HFA) 90 mcg/actuation inhaler, Inhale 2 (two) puffs every 6 (six) hours as needed for wheezing ., Disp: 1 Inhaler, Rfl: 1 cetirizine (ZyrTEC) 10 MG tablet, Take 10 mg by mouth every evening ., Disp: , Rfl: cholecalciferol, vitamin D3, (Vitamin D3) 5,000 unit Tab tablet, Take by mouth daily ., Disp: , Rfl: cyanocobalamin (vitamin B-12) 1000 MCG tablet, Take 5,000 mcg by mouth daily ., Disp: , Rfl: epinastine 0.05 % ophthalmic solution, Administer 1 drop to both eyes 2 (two) times a day ., Disp: 10 mL, Rfl: 5 fexofenadine (LANA) 180 MG tablet, Take 180 mg by mouth daily ., Disp: , Rfl: meclizine (ANTIVERT) 25 mg tablet, Take 1 (one) tablet (25 mg total) by mouth 3 (three) times a dayas needed ., Disp: 30 tablet, Rfl: 2 olmesartan (BENICAR) 40 MG tablet, Take 1 (one) tablet (40 mg total) by mouth daily ., Disp: 90 tablet, Rfl: 1 omeprazole (PRILOSEC) 40 MG capsule, Take 1 (one) capsule (40 mg total) by mouth daily ., Disp: 30 capsule, Rfl: 11 polyethylene glycol (GLYCOLAX) 17 gram/dose powder, Take 17 (seventeen) g by mouth daily ., Disp: 1530 g, Rfl: 3 tiZANidine (Zanaflex) 4 MG tablet, Take up to 3 (three) tablets (12 mg total) by mouth at bedtime.,Disp: 270 tablet, Rfl: 3 urea (CARMOL) 40 % Crea, Apply 1 application topically 2 (two) times a day ., Disp: 198 g, Rfl: 1 BP (!) 120/90 (BP Location: Left arm, Patient Position: Sitting, BP Cuff Size: Adult) Comment: Manual Pulse 72 Temp 98.3 F (36.8 C) (Oral) Ht 5' 8 Wt 79.3 kg (174 lb 14.4 oz) SpO2 98% BMI 26.59 kg/m Review of Systems Constitutional: Negative for appetite change, chills, fatigue, fever and unexpected weight change. HENT: Negative for congestion, dental problem, rhinorrhea, sore throat and trouble swallowing. Eyes: Negative. Negative for visual disturbance. Respiratory: Negative for apnea, cough and shortness of breath. Cardiovascular: Negative for chest pain, palpitations and leg swelling. Gastrointestinal: Positive for abdominal pain (nausea/cramping), constipation and nausea. Negative for abdominal distention, blood in stool, diarrhea and rectal pain. Endocrine: Negative. Genitourinary: Negative for difficulty urinating, dysuria, frequency, menstrual problem and urgency. Musculoskeletal: Positive for arthralgias and myalgias. Negative for back pain and joint swelling. Skin: Negative. Allergic/Immunologic: Positive for environmental allergies. Neurological: Negative for dizziness, syncope, numbness and headaches. Hematological: Negative. Psychiatric/Behavioral: Negative for dysphoric mood and sleep disturbance. The patient is not nervous/anxious. Objective: Physical Exam Constitutional: She is oriented to person, place, and time. She appears well- developed and well-nourished. HENT: Head: Normocephalic and atraumatic. Right Ear: Hearing, tympanic membrane and external ear normal. Left Ear: Hearing, tympanic membrane and external ear normal. Nose: Nose normal. Mouth/Throat: Uvula is midline, oropharynx is clear and moist and mucous membranes are normal. Bilateral canals reddened Eyes: Pupils are equal, round, and reactive to light. Conjunctivae, EOM and lids are normal. Neck: Trachea normal and normal range of motion. Neck supple. Carotid bruit is not present. No thyromegaly present. Cardiovascular: Normal rate, regular rhythm, S1 normal, S2 normal, normal heart sounds and intact distal pulses. No peripheral edema Pulmonary/Chest: Effort normal and breath sounds normal. No accessory muscle usage. No respiratory distress. Abdominal: Soft. She exhibits no distension. Bowel sounds are decreased. There is no abdominal tenderness. There is no rigidity and no guarding. Musculoskeletal: General: No edema. Right hip: She exhibits normal range of motion and normal strength. Lymphadenopathy: She has no cervical adenopathy. Neurological: She is alert and oriented to person, place, and time. She has normal strength. No cranial nerve deficit or sensory deficit. Gait normal. Skin: Skin is warm, dry and intact. Psychiatric: She has a normal mood and affect. Her speech is normal and behavior is normal. Cognition and memory are normal. Vitals reviewed. Assessment/Plan: Diagnoses and all orders for this visit: Annual physical exam Comments: Reviewed PMH, PSH, FMH, social hx. Discussed preventative needs and immunizations. labs today. 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 Chronic idiopathic constipation Comments: Worsened- establishing with GI in [place]- appt in May- discussed proper fluid needs- Vitamin D deficiency Comments: checking levels and will adjust plan as appropriate Orders: - Vitamin D, Total, 25-OH; Future Vitamin B12 deficiency Comments: checking levels and will adjust plan as appropriate Orders: - Vitamin B12; Future Tinnitus of both ears Comments: Established with Dr. Al in [place]- doing ok at this time- has mild hearing loss, not worsened. Right hip pain Comments: Establishing with ortho in [place] next week- ambulates without a problem Depression Screening 04/10/2017 10/01/2018 10/15/2019 04/14/2020 Little interest or pleasure in doing things - 0 0 0 Feeling down, depressed, or hopeless - 0 0 0 PHQ-2 Total Score - 0 0 0 Trouble falling or staying asleep, or sleeping too much 2 3 - 3 Feeling tired or having little energy 1 3 - 1 Poor appetite or overeating 0 0 - 0 Feeling bad about yourself - or that you are a failure or have let yourself or your family down 0 -- 0 Trouble concentrating on things, such as reading the newspaper or watching television 0 0 - 0 Moving or speaking so slowly that other people could have noticed. Or the opposite - being so fidgety or restless that you have been moving around a lot more than usual 0 0 - 0 Thoughts that you would be better off , or of hurting yourself in some way 0 0 - 0 PHQ-9 Total Score 3 - - 4 If you checked off any problems, how difficult have these problems made it for you to do your work,take care of things at home, or get along with other people? Not difficult at all Somewhat difficult - Not difficult at all documented in this encounter* Galilea Whitaker CNP - 07/17/2018 10:34 AM EDT Subjective: Patient ID: Teresa Rico is a 42 y.o. female. HPI Ms. Rico presents today for acute concerns At the beginning of june she started having her seasonal vertigo- comes with her allergies- started taking Meclizine PRN- was tolerable. She relates for the last week her vertigo is much worse- Friday was so bad that she went to go around her table and she ended up going a different direction and fell on to her table- broke it- she states she never had LOC and she didn't hit her head- she did bruise the back of her knees but no pain in her knees/problems with gait- didn't call Dr. Ramsay because her knees were ok. Relates that she has been taking Meclizine consistently for the last week She has had some feeling of something in her throat and congestion with ear fullness. She is takingZyrtec daily but often will also take lana seasonally. Past Medical History: Diagnosis Date Asthma Ganglion cyst Hypertension Irregular heart beat MDD (major depressive disorder) Migraine PVC (premature ventricular contraction) Past Surgical History: Procedure Laterality Date APPENDECTOMY CYST REMOVAL KNEE SURGERY Right 03/25/2018 Dr. Ramsay Family History Problem Relation Age of Onset Cancer Mother Cancer Father Cancer Other Hypertension Other Seizures Other Stroke Other Stroke Maternal Grandmother Heart failure Maternal Grandmother Breast cancer Neg Hx Allergies Allergen Reactions Apple Itching Erythromycin GI Intolerance Influenza Virus Vaccines GI Intolerance Maple Flavor Itching Pork Derived (Porcine) Itching Amoxicillin Rash Black Pepper Swelling and Rash Cephalexin Rash Clarithromycin Rash Garlic Swelling and Rash Penicillins Rash Social History Socioeconomic History Marital status: Single Spouse name: Not on file Number of children: Not on file Years of education: Not on file Highest education level: Not on file Occupational History Not on file Social Needs Financial resource strain: Not on file Food insecurity: Worry: Not on file Inability: Not on file Transportation needs: Medical: Not on file Non-medical: Not on file Tobacco Use Smoking status: Never Smoker Smokeless tobacco: Never Used Substance and Sexual Activity Alcohol use: Yes Comment: occasional Drug use: No Sexual activity: Yes Partners: Male Lifestyle Physical activity: Days per week: Not on file Minutes per session: Not on file Stress: Not on file Relationships Social connections: Talks on phone: Not on file Gets together: Not on file Attends yazidism service: Not on file Active member of club or organization: Not on file Attends meetings of clubs or organizations: Not on file Relationship status: Not on file Other Topics Concern Not on file Social History Narrative Not on file Current Outpatient Medications: cetirizine (ZyrTEC) 10 MG tablet, Take 10 mg by mouth every evening ., Disp: , Rfl: meclizine (ANTIVERT) 25 mg tablet, Take 1 (one) tablet (25 mg total) by mouth 3 (three) times a dayas needed ., Disp: 30 tablet, Rfl: 2 polyethylene glycol (GLYCOLAX) 17 gram/dose powder, Take 17 (seventeen) g by mouth daily., Disp: 1530 g, Rfl: 3 tiZANidine (ZANAFLEX) 4 MG tablet, Take up to 3 (three) tablets (12 mg total) by mouth at bedtime.,Disp: 270 tablet, Rfl: 3 valsartan (DIOVAN) 320 MG tablet, Take 1 (one) tablet (320 mg total) by mouth daily ., Disp: 30 tablet, Rfl: 3 azelastine (OPTIVAR) 0.05 % ophthalmic solution, , Disp: , Rfl: azithromycin (Z-CYRUS) 5 day dose pack, Take 2 tabs x 1 day, then 1 tab daily ., Disp: 6 tablet, Rfl:0 fexofenadine (LANA) 180 MG tablet, Take 180 mg by mouth daily ., Disp: , Rfl: topiramate (TOPAMAX) 25 MG tablet, Take up to 4 tablets in the evening for headaches ., Disp: 480 tablet, Rfl: 3 BP 119/81 (BP Location: Left arm, Patient Position: Sitting, BP Cuff Size: Adult) Pulse (!) 58 Ht 5' 9 Wt 77.3 kg (170 lb 6.4 oz) LMP 07/04/2018 SpO2 96% BMI 25.16 kg/m Review of Systems Constitutional: Positive for fatigue. Negative for appetite change, chills, fever and unexpected weight change. HENT: Positive for congestion, ear discharge, ear pain, sinus pressure and sore throat. Negative for trouble swallowing. Eyes: Negative. Negative for visual disturbance. Respiratory: Negative for cough and shortness of breath. Cardiovascular: Negative for chest pain, palpitations and leg swelling. Musculoskeletal: Negative for arthralgias, back pain, joint swelling and myalgias. Skin: Negative. Neurological: Positive for dizziness and light-headedness. Negative for tremors, syncope, facial asymmetry, weakness and headaches. Hematological: Negative. Objective: Physical Exam Constitutional: She is oriented to person, place, and time. She appears well- developed and well-nourished. HENT: Head: Normocephalic and atraumatic. Right Ear: Hearing and external ear normal. Tympanic membrane is injected and erythematous. Left Ear: Hearing and external ear normal. Tympanic membrane is injected. Mouth/Throat: Mucous membranes are normal. Bilateral canals reddened Neck: Trachea normal and normal range of motion. Neck supple. No thyromegaly present. Cardiovascular: Normal rate, regular rhythm, S1 normal, S2 normal, normal heart sounds and intact distal pulses. No peripheral edema Pulmonary/Chest: Effort normal and breath sounds normal. No accessory muscle usage. No respiratory distress. Musculoskeletal: Normal range of motion. She exhibits no edema or tenderness. Neurological: She is alert and oriented to person, place, and time. Skin: Skin is warm, dry and intact. Ecchymosis (back of bilateral knees) noted. Vitals reviewed. Assessment/Plan: Diagnoses and all orders for this visit: Left otitis media, unspecified otitis media type Comments: Likely source of increased vertigo- will treat with antibiotic- Zpak based on multiple med allergies- Will call if not improving Orders: - azithromycin (Z-CYRUS) 5 day dose pack; Take 2 tabs x 1 day, then 1 tab daily . Environmental and seasonal allergies Comments: Advised to continue zyrtec- can add lana daily if needed. Vertigo Comments: Continue meclizine TID PRN- call if not improving documented in this encounter Reason for Referral Status Reason Specialty Diagnoses / Procedures Referred By Contact Referred To Contact Authorized Otolaryngology Diagnoses Vertigo Bilateral hearing loss, unspecified hearing loss type Tinnitus of both ears Chery Saez DO [address] [place] [address] Status Reason Specialty Diagnoses / Procedures Referred By Contact Referred To Contact Pending Review Central Scheduling Diagnoses Essential hypertension Procedures Ultrasound renal artery duplex, complete Chery Saez DO [address] [place] [address] Central Scheduling [address] [place] [address] Status Reason Specialty Diagnoses / Procedures Referred By Contact Referred To Contact Authorized Central Scheduling Diagnoses Essential hypertension Procedures Ultrasound renal artery duplex, complete Chery Saez, DO [address] [place] [address] Central Scheduling [address] [place] [address] Status Reason Specialty Diagnoses / Procedures Referred By Contact Referred To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 Records regulations: The Federal rules restrict any use of the information to criminally investigate or prosecute any alcohol or drug abuse patient.[facility] the event this information is protected by the Federal Confidentiality of Alcohol and Drug Abuse Patient Records regulations: The Federal rules restrict any use of the information to criminally investigate or prosecute any alcohol or drug abuse patient.[facility] the event this information is protected by the Federal Confidentiality of Alcohol and Drug Abuse Patient Records regulations: The Federal rules restrict any use of the information to criminally investigate or prosecute any alcohol or drug abuse patient.[facility] Center[facility] the event this information is protected by the Federal Confidentiality of Alcohol and Drug Abuse Patient Records regulations: The Federal rules restrict any use of the information to criminally investigate or prosecute any alcohol or drug abuse patient.[facility] the event this information is protected by the Federal Confidentiality of Alcohol and Drug Abuse Patient Records regulations: The Federal rules restrict any use of the information to criminally investigate or prosecute any alcohol or drug abuse patient.[facility] the event this information is protected by the Federal Confidentiality of Alcohol and Drug Abuse Patient Records regulations: The Federal rules restrict any use of the information to criminally investigate or prosecute any alcohol or drug abuse patient.[facility] FOR RECORDS PERTAINING TO PATIENTS WHO ARE OR HAVE BEEN ENROLLED IN A CHEMICAL DEPENDENCY/SUBSTANCEABUSE PROGRAM, SOME INFORMATION MAY BE OMITTED. This clinical summary was aggregated from multiple sources. Caution should be exercised in using it in the provision of clinical care. This summary normalizes information from multiple sources, and as a consequence, information in this document may materially change the coding, format and clinical context of patient data. In addition, data may be omitted in some cases. CLINICAL DECISIONS SHOULD BE BASED ON THE PRIMARY CLINICAL RECORDS. [facility] [employer] provides no warranty or guarantee of the accuracy or completeness of information in this document.
[2023-04-20 11:46] LABS: AST(SGOT) 21 U/L (15-37); Alanine Aminotransfer ALT/SGPT 24 U/L (13-56); Albumin, Serum 3.6 g/dL (3.2-5.0); Alkaline Phosphatase 81 U/L (45-117); Anion Gap 9 (5-15); BUN 10 mg/dL (7-18); BUN/Creat Ratio 15.3 RATIO (10-20); Bilirubin, Direct 0.19 mg/dL (0.00-0.30); Calcium,Total 9.2 mg/dL (8.5-10.1); Chloride 105 mmol/L (98-107); Creatinine, Serum 0.65 mg/dL (0.55-1.02); EST Glomerular Filtration Rate 102 mL/min (>60); Est Glom Filt Rate - Afr Amer 124 mL/min (>60); Estimated Creatinine Clearance 105.61 ml/min; Globulin 3.2 g/dL (2.2-4.2); Glucose 143 mg/dL (74-106); Lipase 23 U/L (13-75); Potassium 3.9 mmol/L (3.5-5.1); Protein, Total 6.8 g/dL (6.4-8.2); Sodium Level 138 mmol/L (136-145)
[2023-04-20 12:18] LABS: Absolute Lymphocyte Count 0.18 X10^3/uL (0.83-4.51); Absolute Neutrophil Count 12.6 X10^3/uL (2.0-7.7); Basophil# 0.02 X10^3/uL; Basophil% 0.2 % (0-1); Eosinophil# 0.01 X10^3/uL; Eosinophils% 0.1 % (0-5); Hematocrit 35.5 % (37-47); Hemoglobin 11.8 g/dL (12.0-15.0); Lymphocyte # 0.18 X10^3/ul (0.83-4.51); Lymphocyte % 1.4 % (19-41); Mean Corp Hgb Conc 33.2 g/dL (32-36); Mean Corpuscular Hgb 32.8 pg (27.0-32.0); Mean Corpuscular Volume 98.6 fL (81-99); Mean Platelet Vol. 9.3 fl (6.2-12.0); Monocyte# 0.42 X10^3/uL; Monocyte% 3.2 % (0-10); NRBC Flagged by Analyzer 0 % (0-5); Neutrophil # 12.57 X10^3/uL (2.7-7.7); Neutrophil % 94.8 % (47-70); POSITIVE DIFFERENTIAL YES; Platelet Count 364 K/mm3 (150-450); RBC Distribution Width CV 11.9 % (11.6-14.6); RBC Distribution Width SD 43.2 fl (35.1-43.9); White Blood Count 13.2 K/mm3 (4.4-11.0)
[2023-04-20 12:37] LABS: Differential Indicated SCAN CRITERIA MET
[2023-04-20 12:38] LABS: Platelet Estimate ADEQUATE (ADEQ); Red Cell Morphology NORM C+C NORMAL (NORM C&C)
[2023-04-20 13:00] VITALS: BP 114/55; PULSE 90; RESP 16; TEMP 36.8; O2SAT 99
== END 2023-04-20 13:02 | disposition home or self-care (01) ==
PROVIDERS: Emergency Provider Emergency Medicine; Visit Provider Emergency Medicine
DX: R10.13 Epigastric pain (principal); R11.2 Nausea with vomiting, unspecified; F32.A Depression, unspecified; Z79.899 Other long term (current) drug therapy
CPT/HCPCS: 80048; 80076; 82274; 83690; 85025; 96365; 96375; 99282; J7030; A4216; J2405

== ENCOUNTER → 2023-07-31 | Outpatient (CLI) | payer BC, SELFPAY ==
[2023-07-31 14:35] LABS: Absolute Lymphocyte Count 2.16 X10^3/uL (0.83-4.51); Basophil# 0.03 X10^3/uL; Basophil% 0.4 % (0-1); Eosinophil# 0.14 X10^3/uL; Hematocrit 34.3 % (37-47); Hemoglobin 11.1 g/dL (12.0-15.0); Lymphocyte # 2.16 X10^3/ul (0.83-4.51); Lymphocyte % 31.4 % (19-41); Mean Corp Hgb Conc 32.4 g/dL (32-36); Mean Corpuscular Hgb 31.4 pg (27.0-32.0); Mean Corpuscular Volume 96.9 fL (81-99); Mean Platelet Vol. 9.2 fl (6.2-12.0); Monocyte# 0.52 X10^3/uL; Monocyte% 7.6 % (0-10); NRBC Flagged by Analyzer 0 % (0-5); Neutrophil # 4.01 X10^3/uL (2.7-7.7); Neutrophil % 58.3 % (47-70); Platelet Count 351 K/mm3 (150-450); RBC Distribution Width CV 12.8 % (11.6-14.6); RBC Distribution Width SD 45.4 fl (35.1-43.9); Red Blood Count 3.54 M/mm3 (4.2-5.4); White Blood Count 6.9 K/mm3 (4.4-11.0)
[2023-07-31 14:58] LABS: Vitamin D,25 Hydroxy 36.3 ng/mL
[2023-07-31 15:03] LABS: ALB/GLOB Ratio 1.2 RATIO (0.9-2.4); AST(SGOT) 18 U/L (15-37); Alanine Aminotransfer ALT/SGPT 17 U/L (13-56); Albumin, Serum 3.7 g/dL (3.2-5.0); Alkaline Phosphatase 86 U/L (45-117); Anion Gap 3 (5-15); BUN 10 mg/dL (7-18); BUN/Creat Ratio 18.1 RATIO (10-20); Calcium,Total 8.5 mg/dL (8.5-10.1); Chloride 106 mmol/L (98-107); Creatinine, Serum 0.55 mg/dL (0.55-1.02); EST Glomerular Filtration Rate 124 mL/min (>60); Est Glom Filt Rate - Afr Amer 150 mL/min (>60); Estradiol 144.6 pg/mL; Follicle Stimulating Hormone 25.4 mIU/mL; Globulin 3.1 g/dL (2.2-4.2); Glucose 99 mg/dL (74-106); Potassium 3.6 mmol/L (3.5-5.1); Protein, Total 6.8 g/dL (6.4-8.2); Sodium Level 136 mmol/L (136-145); T4 Free Direct 0.88 ng/dL (0.76-1.46)
[2023-08-02 04:09] LABS: Thyroid Peroxidase AB < 9 IU/mL (0-34)
== END | disposition home or self-care (01) ==
LOC: PAVLAB 13:45
PROVIDERS: Visit Provider Nurse Practitioner Women's Health
DX: Z13.29 Encounter for screening for other suspected endocrine disorder (principal); L65.9 Nonscarring hair loss, unspecified; R53.83 Other fatigue; R23.2 Flushing; Z13.21 Encounter for screening for nutritional disorder
CPT/HCPCS: 36415; 80053; 82306; 82670; 83001; 84439; 84443; 85025; 86376

== ENCOUNTER → 2023-08-22 | Outpatient (CLI) | payer BC, SELFPAY ==
[2023-08-22 14:40] LABS: Absolute Lymphocyte Count 1.91 X10^3/uL (0.83-4.51); Absolute Neutrophil Count 3.5 X10^3/uL (2.0-7.7); Basophil# 0.03 X10^3/uL; Basophil% 0.5 % (0-1); Eosinophil# 0.16 X10^3/uL; Eosinophils% 2.6 % (0-5); Hematocrit 39.1 % (37-47); Hemoglobin 12.9 g/dL (12.0-15.0); Lymphocyte # 1.91 X10^3/ul (0.83-4.51); Lymphocyte % 31.3 % (19-41); Mean Corpuscular Hgb 31.5 pg (27.0-32.0); Mean Corpuscular Volume 95.4 fL (81-99); Mean Platelet Vol. 9.2 fl (6.2-12.0); Monocyte# 0.52 X10^3/uL; Monocyte% 8.5 % (0-10); NRBC Flagged by Analyzer 0 % (0-5); Neutrophil # 3.46 X10^3/uL (2.7-7.7); Neutrophil % 56.8 % (47-70); Platelet Count 333 K/mm3 (150-450); RBC Distribution Width CV 12.6 % (11.6-14.6); RBC Distribution Width SD 43.9 fl (35.1-43.9); White Blood Count 6.1 K/mm3 (4.4-11.0)
[2023-08-22 15:09] LABS: Vitamin B12 575 pg/mL (211-911)
[2023-08-22 15:20] LABS: ALB/GLOB Ratio 1.1 RATIO (0.9-2.4); AST(SGOT) 16 U/L (15-37); Alanine Aminotransfer ALT/SGPT 18 U/L (13-56); Albumin, Serum 3.8 g/dL (3.2-5.0); Alkaline Phosphatase 93 U/L (45-117); Anion Gap 3 (5-15); BUN 13 mg/dL (7-18); BUN/Creat Ratio 20.3 RATIO (10-20); Calcium,Total 9.2 mg/dL (8.5-10.1); Chloride 107 mmol/L (98-107); Creatinine, Serum 0.64 mg/dL (0.55-1.02); EST Glomerular Filtration Rate 104 mL/min (>60); Est Glom Filt Rate - Afr Amer 126 mL/min (>60); Ferritin 52 ng/mL (8-252); Globulin 3.4 g/dL (2.2-4.2); Glucose 98 mg/dL (74-106); Iron Binding Capacity,Total 388 ug/dL (250-450); Potassium 3.9 mmol/L (3.5-5.1); Protein, Total 7.2 g/dL (6.4-8.2); Sodium Level 138 mmol/L (136-145); T4 Free Direct 0.83 ng/dL (0.76-1.46)
[2023-08-24 09:07] LABS: Thyroid Peroxidase AB 15 IU/mL (0-34)
[2023-08-25 14:09] LABS: ANTINUCLEAR ANTIBODIES DIRECT Negative (Negative)
[2023-08-26 11:15] LABS: Iron 121 ug/dL (50-170); PERCENT IRON SATURATION 31.2 % (15.0-55.0)
== END | disposition home or self-care (01) ==
LOC: LAB 14:08
PROVIDERS: Referring Provider Physician Assistant; Visit Provider Physician Assistant
DX: L65.0 Telogen effluvium (principal)
CPT/HCPCS: 36415; 80053; 82607; 82627; 82728; 82746; 83540; 83550; 84439; 85025; 86038; 86376; 82626

== ENCOUNTER 2023-10-06 17:24 | Outpatient (RCR) | payer BC, SELFPAY | END 2023-10-06 19:00 | disposition home or self-care (01) | LOC: PT 17:24 | DX: Z00.00 Encounter for general adult medical examination without abnormal findings (principal) ==

== ENCOUNTER → 2024-01-27 | Outpatient (CLI) | payer BC, SELFPAY ==
--- NOTE | 2024-01-27 09:09 | BI_ITS ---
MAMMOGRAPHY - BILATERAL SCREENING REASON FOR EXAM: Female, 48 years old. Routine annual screening examination. PERTINENT HISTORY: Non-contributory. Prior left breast cyst aspiration. TECHNIQUE: Digital bilateral breast shayy (3D mammographic acquisition) in the CC and MLO projections. 2-D mediolateral oblique (MLO) and craniocaudad (CC) views of both breasts were obtained. CAD: Full Field Digital Mammography with Computer Added Detection was performed. COMPARISON: Comparison is made with prior study dated January 23, 2023 and December 28, 2021. FINDINGS: Breast Composition: The breasts are heterogeneously dense, which may obscure small masses. There are no dominant masses or suspicious calcifications. Stable small bilateral axillary lymph nodes. No other significant abnormalities are identified. There has been no significant change since the prior study. BI/SCRN MAMM (CAD)W/SHAYY BILAT IMPRESSION: Stable bilateral screening mammogram. Yearly follow-up mammogram recommended. (A) ASSESSMENT CATEGORY: BIRADS Category 2: Benign. A letter regarding these results will be sent to the patient by the facility within 30 days. Approximately 10% of breast cancers are not detected by mammography. A normal mammogram should not delay biopsy of a clinically suspicious abnormality. [id number] Electronically Signed: Ash Martínez MD at 9:54 EST ,
== END | disposition home or self-care (01) ==
PROVIDERS: Referring Provider Obstetrics & Gynecology; Visit Provider Obstetrics & Gynecology
DX: Z12.31 Encounter for screening mammogram for malignant neoplasm of breast (principal)
CPT/HCPCS: 77063; 77067

== ENCOUNTER 2024-02-14 00:28 | Inpatient (IN) | payer BC, SELFPAY ==
[2024-02-14] VITALS (9 sets, daily range): BP systolic 125–140; BP diastolic 76–91; PULSE 70–98; RESP 16–18; TEMP 36.5–36.9; O2SAT 94–99; BMI 25.9; BMI 23.1
--- NOTE | 2024-02-14 00:39 | EKG12_ITS ---
Test Reason : DYSRHYTHMIA Blood Pressure : */* mmHG Vent. Rate : 87 BPM Atrial Rate : 87 BPM P-R Int : 176 ms QRS Dur : 88 ms QT Int : 380 ms P-R-T Axes : 49 -20 30 degrees QTcB Int : 457 ms Normal sinus rhythm Possible Left atrial enlargement Inferior infarct , age undetermined Abnormal ECG Confirmed by AALIYAH DE, RILEY ([id number]), advertising editor LISA NEAL ([id number]) on 02/16/2024 6:57:38 AM Referred By: Confirmed By: RILEY FISCHER MD
--- NOTE | 2024-02-14 00:40 | ED.VIS.GI ---
HPI HPI - GI History of Present Illness Chief Complaint: Flank Pain Informant: patient Narrative Narrative: Patient is a 48-year-old female presenting with sudden onset of bilateral mid back pain with associated nausea and vomiting. Patient states she felt fine she had of work today and she ate dinner with her . That is why getting meatballs and she had a glass of wine. She went to bed and noticed that her heart rate was a little fast. She did have some back pain and took a tizanidine thinking it was a muscle spasm and tried heat. She then had multiple episodes of vomiting. No report of blood in her vomit. She notes that she did have a bowel movement today. Reports chronic constipation. Has had this constant ache in her back and then will have a more severe sharp cramping pain in her lower abdomen and then vomit. Has had a history of prior appendectomy. Denies any sick contacts. Denies any fever or chills. No urinary symptoms reported. No other complaints or concerns at this time. [facility] Medical History Hair loss Fatigue Hot flashes Atrophic vaginitis Family history of bladder cancer Family history of colon cancer in father Family history of breast cancer Chronic gastritis Ganglion cyst Ovarian cyst History of depression Hypertension Home Medications ?Medication ?Instructions ?Recorded ?Last Taken ?Type cholecalciferol (vitamin D3) 250 250 mcg PO QWEEK REPLACEMENT 12/15/19 Unknown History mcg (10,000 unit) capsule cyanocobalamin (vitamin B-12) 1,000 mcg PO DAILY 12/15/19 Unknown History 1,000 mcg capsule olmesartan 20 mg tablet (Benicar) 20 mg PO DAILY 12/15/19 Unknown History cetirizine 10 mg capsule (Zyrtec) 10 mg PO DAILY PRN allergic 11/16/21 Unknown History symptoms ondansetron 4 mg disintegrating 4 mg PO Q8H PRN PRN Nausea #10 tabs 04/20/23 02/10/24 Rx tablet estradiol 0.01% (0.1 mg/gram) See Rx Instructions vaginal 01/27/24 Unknown Rx vaginal cream .COMPLEX #42.5 grams pantoprazole 20 mg tablet,delayed 20 mg PO DAILY 02/14/24 Unknown History release spironolactone 50 mg tablet 50 mg PO DAILY 02/14/24 Unknown History tizanidine 4 mg tablet 0 - 12 mg PO QHS 02/14/24 Unknown History Allergy/AdvReac Type Severity Reaction Status Date / Time clarithromycin (From Biaxin) Allergy Mild other Verified 02/14/24 00:29 erythromycin base (From Allergy Mild other Verified 02/14/24 00:29 Erythrocin) Family History Mother Bladder cancer Aunt Cancer appendix Father Cancer stomach Suicide Grandmother Cancer abdom. 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[employer] [facility] ED Constitutional Constitutional ED: Denies chills or fever(s) Cardiovascular Cardiovascular: Denies chest pain Respiratory/Chest Respiratory/Chest: Denies cough or dyspnea Gastrointestinal Gastrointestinal: Reports abdominal pain, constipation, nausea and vomiting Genitourinary Genitourinary ED: Denies dysuria or hematuria Musculoskeletal Musculoskeletal: Reports back pain; Denies myalgias Integumentary Denies rash Neurologic Neurologic: Denies weakness Hematologic/Lymphatic Hematologic/Lymphatic: Denies easy bleeding or easy bruising EXAM Physical Exam Const Vital Signs: 02/14/24 00:29 02/14/24 02:30 02/14/24 03:50 Temperature 97.8 F 98.5 F Temperature Source Oral Pulse Rate 98 91 79 Respiratory Rate 18 18 16 Blood Pressure 140/76 H 127/86 H 125/79 H Blood Pressure Mean 97 99 94 Pulse Ox 98 96 98 Oxygen Delivery Method Room Air Room Air 02/14/24 04:00 Temperature Temperature Source Pulse Rate 74 Respiratory Rate 16 Blood Pressure 125/79 H Blood Pressure Mean 94 Pulse Ox 99 Oxygen Delivery Method Room Air Positive well nourished and well developed General Appearance ED: well developed and NAD; Negative for pallor HEENT Reports moist mucous membranes Neck supple Resp normal respiratory effort and clear to auscultation bilaterally Cardio regular rate and regular rhythm GI non-tender and non-distended GI Narrative: Negative Napoles sign Inspection: Negative for abdominal distention Auscultation: normoactive bowel sounds Palpation: soft; Negative for tender, guarding or rigid Back/Spine no CVA tenderness Extremity General Extremety ED: Negative for edema General Extremity: Negative for edema Neuro Sensorium / Orientation: alert, oriented to person, oriented to place and oriented to time Motor Exam: Negative for general weakness Psych mental status grossly normal and thought process normal Skin no wounds General Skin Exam: Negative for jaundice or pallor MDM MDM MDM Narrative Medical decision making narrative: Patient is evaluated for sudden onset of back pain with associated nausea and vomiting. She also has some intermittent crampy abdominal pain. Upon arrival patient is quite uncomfortable appearing. Her vital signs are normal. She is given IV morphine, fluids and Zofran for symptom control. Differential includes gastroenteritis, small bowel obstruction, renal colic, GERD, pancreatitis, dehydration, viral syndrome. Patient CBC largely normal. CMP is normal except patient has a significant elevation of her creatinine of 2.85. Her baseline is 0.6. Urinalysis does show 500 protein but not consistent with infection. CT of the abdomen pelvis shows bilateral perinephric stranding which is nonspecific but no hydronephrosis or urolithiasis. Patient is redosed with morphine and Zofran. She sheryl hemodynamically stable. Is given a liter of IV fluids. She states that she has not been taking NSAIDs regularly we did have a dose tonight. Denies any new medications or supplements. I will be admitted for further evaluation of her acute kidney injury. Concern for possible nephrotic syndrome given the amount of protein in the urine. She does go on to state that her back pain has been occurring intermittently for over a month now. Given how long the symptoms were do not suspect an acute aortic or ischemic process. Case was discussed with hospitalist, Dr. Carranza. She is admitted to the medicine service. Lab Data Attestation: I reviewed the patient's lab results. Labs: Laboratory Results - last 24 hr 02/14/24 02/14/24 00:32 03:18 WBC 10.0 RBC 4.25 Hgb 13.8 Hct 40.6 MCV 95.5 MCH 32.5 H MCHC 34.0 RDW Std Deviation 41.3 RDW Coeff of Jeanie 11.9 Plt Count 295 MPV 9.0 Immature Gran % (Auto) 0.300 Neut % (Auto) 77.8 H Lymph % (Auto) 11.5 L [place] % (Auto) 9.4 Eos % (Auto) 0.7 Baso % (Auto) 0.3 Absolute Neuts (auto) 7.8 H Absolute Lymphs (auto) 1.15 Nucleated RBC % 0 ESR 8 Sodium 139 Potassium 4.6 Chloride 103 Carbon Dioxide 30.0 Anion Gap 6 BUN 35 H Creatinine 2.85 H Estim Creat Clear Calc 25.87 Est GFR (MDRD) Af Amer 23 L Est GFR (MDRD) Non-Af 19 L BUN/Creatinine Ratio 12.3 Glucose 151 H Calcium 9.5 Total Bilirubin 0.40 AST 22 ALT 19 Alkaline Phosphatase 101 Total Creatine Kinase 67 C-React Prot Ext Range < 2.90 Total Protein 7.4 Albumin 4.0 Globulin 3.4 Albumin/Globulin Ratio 1.2 Lipase 58 Urine Color Yellow Urine Clarity Clear Urine pH 7.0 Ur Specific [place] 1.010 Urine Protein 500 H Urine Glucose (UA) 50 H Urine Ketones Negative Urine Occult Blood 25 H Urine Nitrite Negative Urine Bilirubin Negative Urine Urobilinogen Normal Ur Leukocyte Esterase Negative Urine RBC 0 SEEN Urine WBC 0 SEEN Ur Squamous Epith Cells 0 SEEN Urine Bacteria 0 SEEN Urine Mucus 0 SEEN U Random Total Protein 305.3 H Ur Random Sodium 59 Urine Creatinine 43.40 Protein/Creatinin Ratio 7035 H Radiography Diagnostic Testing: Clinical Impression(s) from Imaging Studies Abdomen/Pelvis CT 02/14/24 01:07 IMPRESSION: Bilateral perinephric stranding nonspecific, can be seen with acute process such as pyelonephritis or other inflammatory process. No urolithiasis or hydronephrosis. Electronically Signed: Vania Conroy MD at 2:30 EST , Rhythm Strip Rhythm Strip: Sinus Rhythm Rate: 87 Ectopy: None EKG Initial EKG: Attestation: I personally reviewed and interpreted this EKG as follows: Interpretation: Sinus Rhythm Comments: Normal sinus rhythm at a rate of 87 bpm Normal axis Normal intervals Normal ST segments Prior EKG tracings: not available for review Prior: No Prior Management Discussion w/another healthcare provider: Hospitalist Discharge Plan Dx/Rx/DC Orders Clinical Impression: GOPAL (acute kidney injury), Proteinuria, Flank pain Disposition Disposition: Acute Care Hospital [facility] Discharge Date/Time: 02/14/24 04:42
[2024-02-14 00:46] LABS: Absolute Lymphocyte Count 1.15 X10^3/uL (0.83-4.51); Absolute Neutrophil Count 7.8 X10^3/uL (2.0-7.7); Basophil# 0.03 X10^3/uL; Basophil% 0.3 % (0-1); Eosinophil# 0.07 X10^3/uL; Eosinophils% 0.7 % (0-5); Hematocrit 40.6 % (37-47); Hemoglobin 13.8 g/dL (12.0-15.0); Lymphocyte # 1.15 X10^3/ul (0.83-4.51); Lymphocyte % 11.5 % (19-41); Mean Corpuscular Hgb 32.5 pg (27.0-32.0); Mean Corpuscular Volume 95.5 fL (81-99); Monocyte# 0.94 X10^3/uL; Monocyte% 9.4 % (0-10); NRBC Flagged by Analyzer 0 % (0-5); Neutrophil # 7.82 X10^3/uL (2.7-7.7); Neutrophil % 77.8 % (47-70); Platelet Count 295 K/mm3 (150-450); RBC Distribution Width CV 11.9 % (11.6-14.6); RBC Distribution Width SD 41.3 fl (35.1-43.9); Red Blood Count 4.25 M/mm3 (4.2-5.4)
[2024-02-14] MEDS: Ondansetron 4 MG/2 ML Vial IV ×5 (00:46→22:12)
[2024-02-14] MEDS: 0.9% Normal Saline (1000mL) 1,000 ML 999 ML IV (00:46)
[2024-02-14 01:03] LABS: ALB/GLOB Ratio 1.2 RATIO (0.9-2.4); AST(SGOT) 22 U/L (15-37); Alanine Aminotransfer ALT/SGPT 19 U/L (13-56); Alkaline Phosphatase 101 U/L (45-117); Anion Gap 6 (5-15); BUN 35 mg/dL (7-18); BUN/Creat Ratio 12.3 RATIO (10-20); Calcium,Total 9.5 mg/dL (8.5-10.1); Chloride 103 mmol/L (98-107); Creatinine, Serum 2.85 mg/dL (0.55-1.02); EST Glomerular Filtration Rate 19 mL/min (>60); Est Glom Filt Rate - Afr Amer 23 mL/min (>60); Estimated Creatinine Clearance 25.87 ml/min; Globulin 3.4 g/dL (2.2-4.2); Glucose 151 mg/dL (74-106); Lipase 58 U/L (13-75); Potassium 4.6 mmol/L (3.5-5.1); Protein, Total 7.4 g/dL (6.4-8.2); Sodium Level 139 mmol/L (136-145)
--- NOTE | 2024-02-14 01:07 | CT_ITS ---
E EXAM: CT Abdomen And Pelvis W/O Contrast Injection HISTORY: back pain, vomiting, GOPAL Bilateral flank pain, n/v, hx htn, ovarian cyst, appy, gastritis TECHNIQUE: Routine protocol CT abdomen and pelvis. IV Contrast: None.. Oral contrast: None. RADIATION DOSAGE (If Supplied By Facility): CTDIvol = ( 8.64 ) mGy, DLP = ( 470.78 ) mGycm Individualized dose optimization techniques were used for this CT. COMPARISON: None. LIMITATIONS: None. FINDINGS: LOWER CHEST: Included lung bases are clear. LIVER: Grossly unremarkable. GALLBLADDER AND BILIARY TREE: Grossly unremarkable. PANCREAS: Grossly unremarkable. SPLEEN: Grossly unremarkable. ADRENAL GLANDS: Grossly unremarkable. KIDNEYS AND URETERS: No calculi demonstrated. No hydronephrosis. Perinephric stranding bilaterally. PERITONEUM: No free air. No free fluid. BOWEL: Scattered diverticula throughout the colon. No bowel obstruction. APPENDIX: Not identified. Surgically absent. VESSELS: Abdominal aorta is normal caliber. REPRODUCTIVE ORGANS: Grossly unremarkable URINARY BLADDER: Grossly unremarkable. ABDOMINAL WALL: Unremarkable. BONES: No acute abnormalities. CT/Abdomen/Pelvis without Cont IMPRESSION: Bilateral perinephric stranding nonspecific, can be seen with acute process such as pyelonephritis or other inflammatory process. No urolithiasis or hydronephrosis. Electronically Signed: Vania Conroy MD at 2:30 EST ,
[2024-02-14] MEDS: Morphine 4 MG/ML Syringe IV (01:14)
[2024-02-14] MEDS: morphine 8 MG/ML Syringe 6 MG IV (02:38)
[2024-02-14 03:26] LABS: Bacteria 0 SEEN /hpf (None Seen); Mucous, Urine 0 SEEN /hpf (<or=2+); Red Blood Cells-Urine 0 SEEN /hpf (0-5); Squamous Epithelial Cells - UA 0 SEEN /hpf (5-10); White Blood Cells 0 SEEN /hpf (0-5)
[2024-02-14 03:29] LABS: Color, Urine Yellow (Yellow); Glucose, Dipstick 50 mg/dl (Normal); Ketone-Dipstick Negative (Negative); Leukocyte Esterase-Dipstick Negative /ul (Negative); Nitrite-Dipstick Negative (Negative); Occult Blood-Urine 25 /ul (Negative); Protein-Dipstick 500 mg/dl (Negative); Urine Bilirubin Dipstick Negative (Negative); Urine Clarity Clear (Clear); Urine Urobilinogen Normal (Normal)
--- NOTE | 2024-02-14 04:03 | HP.PCM.HOS_ITS ---
HPI - General General Date of Admission: 02/14/24 Date of Service: 02/14/24 Chief Complaint: Flank pain HPI Narrative AMINATA DAO, is a 48 F who presented to the emergency department at [facility] on 02/14/2024 with a chief complaint of flank pain. Patient states that for several months now she has been having epigastric abdominal pain and mid abdominal pain every time she eats. She follows with gastroenterology and has appointment upcoming in March. She has asked them about this and they told her it was probably her new medications. At this point the medications were started sometime ago she states. She stated initially she lost quite a bit of weight because she had been able to eat as much for the last several weeks she has gained back 25 pounds. She is not having any swelling. She reported that she was feeling fairly close to her baseline and went out to dinner and was able to tolerate dinner without a problem. She was able to have a glass of wine and then went home and started having back pain that was bilateral flanks. She thought that she had some muscular irritation so she soaked in the bathtub and took 2 ibuprofen but the pain persisted and slowly worsened. She stated some of the most severe pain she is ever had so she came emergency department to be evaluated. She indicated the pain was so horrible that she had vomiting. She said no other nausea, vomiting or diarrhea today. She has no known fever or chills. She has had no rashes. She has not been on any antibiotics or had any viral illnesses/bacterial illnesses lately. She been on Protonix for considerable amount of time and takes Aldactone for hair loss and olmesartan for her blood pressure. She states she has been urinating more volume than usual and seems to have more frequency. She is having some urination at night which is atypical for her. She does states she also has constipation issues at baseline but seems like it is more significant lately. She has had no rashes. Patient denies any supplement use. Vital signs on presentation showed a temperature of 97.8, heart rate 98, blood pressure 140/76 respiratory rate 18 and pulse ox was 98% on room air. Her CBC was unremarkable except for left shift with a 77.8% neutrophilia. Chemistry panel had normal electrolytes but her BUN was 35 and her serum creatinine was 2.85. Serum glucose was 150 nonfasting. Liver function was unremarkable. Lipase was normal at 58. Her UA showed a specific gravity 1.01. She had 500 protein in her urine with small glucose and occult blood but no white cells red cells or bacteria were noted. Urine sodium was 59. CT of the abdomen pelvis shows bilateral nephritic stranding that is nonspecific and can be seen with acute processes such as pyelonephritis or other inflammatory processes, she had no urolithiasis or hydronephrosis. No other abnormalities were noted. She was given pain medication and IV fluids in the emergency department and given the severity of her renal dysfunction request for admission was made. [facility] Medical History Hair loss Fatigue Hot flashes Atrophic vaginitis Family history of bladder cancer Family history of colon cancer in father Family history of breast cancer Chronic gastritis Ganglion cyst Ovarian cyst History of depression Hypertension Home Medications ?Medication ?Instructions ?Recorded ?Last Taken ?Type cholecalciferol (vitamin D3) 250 250 mcg PO QWEEK 12/15/19 Unknown History mcg (10,000 unit) capsule cyanocobalamin (vitamin B-12) 1,000 mcg PO DAILY 12/15/19 Unknown History 1,000 mcg capsule olmesartan 20 mg tablet (Benicar) 20 mg PO DAILY 12/15/19 Unknown History cetirizine 10 mg capsule (Zyrtec) 10 mg PO DAILY PRN allergic 11/16/21 Unknown History symptoms ondansetron 4 mg disintegrating 4 mg PO Q8H PRN PRN Nausea #10 tabs 04/20/23 02/10/24 Rx tablet estradiol 0.01% (0.1 mg/gram) See Rx Instructions vaginal 01/27/24 Unknown Rx vaginal cream .COMPLEX #42.5 grams pantoprazole 20 mg tablet,delayed 20 mg PO DAILY 02/14/24 Unknown History release spironolactone 50 mg tablet 50 mg PO DAILY 02/14/24 Unknown History tizanidine 4 mg tablet 0 - 12 mg PO QHS 02/14/24 Unknown History Allergy/AdvReac Type Severity Reaction Status Date / Time clarithromycin (From Biaxin) Allergy Mild other Verified 02/14/24 00:29 erythromycin base (From Allergy Mild other Verified 02/14/24 00:29 Erythrocin) Family History Mother Bladder cancer Aunt Cancer appendix Father Cancer stomach Suicide Grandmother Cancer abdom. 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 [employer] Constitutional Constitutional: Reports change in weight; Denies anorexia, chills, fatigue, fever(s), malaise, night sweats, weakness or other Eyes Eyes: Denies blurry vision, change in eye color, change in vision, discharge from eye(s), double vision, erythema, eye pain, loss of vision or other ENT HEENT: Denies abnormal hearing, dysphagia, ear pain, epistaxis, headache(s), hearing loss, nasal congestion, nasal discharge, post nasal drip, sinus pressure, sore throat or other Cardiovascular Cardiovascular: Denies chest pain, claudication, dyspnea on exertion, edema, lightheadedness, orthopnea, palpitations, paroxysmal nocturnal dyspnea, rapid heart rate, syncope or other Respiratory/Chest Respiratory/Chest: Denies cough, dyspnea, excessive phlegm production, hemoptysis, productive cough, shortness of breath at rest, shortness of breath with exertion, wheezing or other Gastrointestinal Gastrointestinal: Reports abdominal pain, nausea, vomiting and other Details: Weight loss Genitourinary Genitourinary: Reports nocturia, urinary frequency and other Details: Polyuria ; Denies burning urination, difficulty urinating, dysuria, hematuria, urinary hesitancy, urinary incontinence or urinary urgency Musculoskeletal Musculoskeletal: Reports back pain; Denies arthralgias, joint pain, joint stiffness, joint swelling, myalgias, neck pain or other Neurologic Neurologic: Denies abnormal gait, abnormal speech, confusion, disequilibrium, dizziness, focal weakness, headache(s), numbness, paresthesias, seizure-like activity, seizures, syncope, tingling, tremor(s) or other Psychiatric Psychiatric: Denies anxiety, depression, homicidal ideation, suicidal ideation or other Endocrine Endocrinology: Denies change in body appearance, cold intolerance, excessive sweating, heat intolerance, polydipsia, polyuria or other Hematologic/Lymphatic Hematologic/Lymphatic: Denies anemia, easy bleeding, easy bruising, lymphadenopathy or other Allergic/Immunologic Allergic/Immunologic: Denies rhinitis, hives, eczemia, asthma or other Vital Signs Vital Signs Vital Signs: 02/14/24 00:29 02/14/24 02:30 02/14/24 03:50 Temperature 97.8 F 98.5 F Temperature Source Oral Pulse Rate 98 91 79 Respiratory Rate 18 18 16 Blood Pressure 140/76 H 127/86 H 125/79 H Blood Pressure Mean 97 99 94 Pulse Ox 98 96 98 Oxygen Delivery Method Room Air Room Air 02/14/24 04:00 Temperature Temperature Source Pulse Rate 74 Respiratory Rate 16 Blood Pressure 125/79 H Blood Pressure Mean 94 Pulse Ox 99 Oxygen Delivery Method Room Air Weight Weight: 77.6 kg Body Mass Index (BMI) 25.9 Physical Exam Const alert, oriented x3, average body habitus and well nourished Constitutional Narrative: Middle-aged, white female, lying in left side-lying curled up in bed, appears uncomfortable but not toxic, at bedside General Appearance: cooperative HEENT normocephalic, head/scalp atraumatic and hearing grossly normal bilaterally HEENT Narrative: Mucous membranes are slightly dry, Mallampati is 2, no thrush Eyes EOMs intact bilaterally and conjunctivae normal Eyes Narrative: No scleral icterus Neck no lymphadenopathy and supple Neck Narrative: Trachea midline, no thyroid enlargement Resp normal respiratory effort, no retractions, no use of accessory muscles and clear to auscultation bilaterally Auscultation: Negative for rales, rhonchi or wheezes Cardio regular rate, regular rhythm, S1 normal heart sound, S2 normal heart sound, no murmurs, no rub, no gallops and no clicks GI normal to inspection, nondistended, normoactive bowel sounds and soft to palpation GI Narrative: Diffuse tenderness especially in the epigastrium Extremity no clubbing, cyanosis or edema Extremity Narrative: Pedal and radial pulses are 2+ Skin Skin Narrative: No rashes or lesions noted Neuro oriented x3, moves all extremities and no focal motor deficits Speech: speech normal Psych Psych Narrative: Affect is slightly flat but appropriate for current condition, patient interacts appropriately Results Lab / Micro Data 02/14/24 00:32 02/14/24 00:32 Labs: Laboratory Results - last 24 hr 02/14/24 00:32: WBC 10.0, RBC 4.25, Hgb 13.8, Hct 40.6, MCV 95.5, MCH 32.5 H, MCHC 34.0, RDW Std Deviation 41.3, RDW Coeff of Jeanie 11.9, Plt Count 295, MPV 9.0, Immature Gran % (Auto) 0.300, Neut % (Auto) 77.8 H, Lymph % (Auto) 11.5 L, Day % (Auto) 9.4, Eos % (Auto) 0.7, Baso % (Auto) 0.3, Absolute Neuts (auto) 7.8 H, Absolute Lymphs (auto) 1.15, Nucleated RBC % 0, Sodium 139, Potassium 4.6, Chloride 103, Carbon Dioxide 30.0, Anion Gap 6, BUN 35 H, Creatinine 2.85 H , Estim Creat Clear Calc 25.87, Est GFR (MDRD) Af Amer 23 L, Est GFR (MDRD) Non- Af 19 L, BUN/Creatinine Ratio 12.3, Glucose 151 H, Calcium 9.5, Total Bilirubin 0.40, AST 22, ALT 19, Alkaline Phosphatase 101, Total Protein 7.4, Albumin 4.0, Globulin 3.4, Albumin/Globulin Ratio 1.2, Lipase 58 02/14/24 03:18: Urine Color Yellow, Urine Clarity Clear, Urine pH 7.0, Ur Specific [place] 1.010, Urine Protein 500 H, Urine Glucose (UA) 50 H, Urine Ketones Negative, Urine Occult Blood 25 H, Urine Nitrite Negative, Urine Bilirubin Negative, Urine Urobilinogen Normal, Ur Leukocyte Esterase Negative, Urine RBC 0 SEEN, Urine WBC 0 SEEN, Ur Squamous Epith Cells 0 SEEN, Urine Bacteria 0 SEEN, Urine Mucus 0 SEEN Imaging Radiology Impression Abdomen/Pelvis CT 02/14/24 01:07 IMPRESSION: Bilateral perinephric stranding nonspecific, can be seen with acute process such as pyelonephritis or other inflammatory process. No urolithiasis or hydronephrosis. Electronically Signed: Vania Conroy MD at 2:30 EST , Assessment & Plan Assessment/Plan (1) GOPAL (acute kidney injury): (2) Proteinuria: (3) Flank pain: PLAN: Plan GOPAL with proteinuria -Etiology is unclear -No signs of obstruction on CT so we will hold off on Lau for now -Urine sodium is pending -Patient with significant proteinuria -Check urine sodium and creatinine to assess FeNa -Check CPK -Sed rate CRP are pending -Check ANCA -Check ANGEL with reflex panel -Check CH 50 -Check C3 and C4 -Check urine protein creatinine ratio -May need renal biopsy -Will hydrate with 2 L IV fluids and reassess -Hold home ARB -Check retroperitoneal ultrasound -Consult nephrology Flank pain -Likely related to the above process -CT of the abdomen pelvis shows bilateral perinephritic stranding that is nonspecific with no urolithiasis or hydronephrosis -Avoid NSAIDs -Tylenol available -As needed Dilaudid -Would avoid morphine due to metabolites with GOPAL Constipation -Start MiraLAX scheduled -As needed senna GERD -Will hold Protonix for now given GOPAL Essential hypertension -Hold home Aldactone -Hold home ARB -As needed hydralazine for systolic pressure greater than 150 Seasonal allergies -Continue home Zyrtec as needed DVT prophylaxis -Heparin twice daily CODE STATUS -Full code Charges/Coding Visit Charges Inpatient E&M: 84609 Init Hosp L2
--- NOTE | 2024-02-14 04:16 | US_ITS ---
INDICATION: GOPAL EXAMINATION: Ultrasound US Kidney(s) complete (eg, kidneys and bladder) TECHNIQUE: Barrera scale and color doppler images were obtained of the kidneys. COMPARISON: FINDINGS: RIGHT KIDNEY: 11.0 x 5.3 x 5.5 cm. The cortex is 21 mm. Prominent pyramids with echogenic cortex. There is no hydronephrosis. Trace perinephric fluid. LEFT KIDNEY: 11.8 x 5.5 x 5.8 cm. The cortex is 23 mm.. Prominent pyramids with echogenic cortex. There is no hydronephrosis. Trace perinephric fluid. URINARY BLADDER: No acute abnormality. US/Kidney and Bladder IMPRESSION: Trace perinephric fluid bilaterally. Bilateral prominent pyramids with echogenic cortex in the kidneys. Medical renal disease cannot be excluded. Electronically Signed: Bebo Ng DO at 16:13 EST ,
[2024-02-14 04:23] LABS: Erythrocyte Sedimentation Rate 8 mm/hr (0-30)
[2024-02-14 04:39] LABS: Urine Sodium 59 mmol/L (Not Establ.)
[2024-02-14 04:39] LABS: CPK Total, Creatine Kinase 67 U/L (26-192); CRP < 2.90 mg/L (0.0-3.0)
[2024-02-14 05:20] LABS: Protein, Urine (Random) 305.3 mg/dL (<11.9); Protein:Creat Ratio 7035 mg/g CRE (0-200)
[2024-02-14] MEDS: HYDROmorphone 0.5 MG/0.5 ML SYRINGE IV ×4 (05:22→20:11)
[2024-02-14 07:40] LABS: Absolute Neutrophil Count 7.5 X10^3/uL (2.0-7.7); Basophil# 0.05 X10^3/uL; Basophil% 0.5 % (0-1); Eosinophil# 0.01 X10^3/uL; Eosinophils% 0.1 % (0-5); Hematocrit 38.9 % (37-47); Lymphocyte % 8.1 % (19-41); Mean Corp Hgb Conc 33.4 g/dL (32-36); Mean Corpuscular Hgb 32.5 pg (27.0-32.0); Mean Corpuscular Volume 97.3 fL (81-99); Mean Platelet Vol. 9.3 fl (6.2-12.0); Monocyte# 1.49 X10^3/uL; NRBC Flagged by Analyzer 0 % (0-5); Neutrophil # 7.53 X10^3/uL (2.7-7.7); Neutrophil % 75.8 % (47-70); Platelet Count 259 K/mm3 (150-450); RBC Distribution Width CV 11.9 % (11.6-14.6); RBC Distribution Width SD 42.5 fl (35.1-43.9); White Blood Count 9.9 K/mm3 (4.4-11.0)
[2024-02-14 09:28] LABS: ALB/GLOB Ratio 1.1 RATIO (0.9-2.4); AST(SGOT) 25 U/L (15-37); Alanine Aminotransfer ALT/SGPT 18 U/L (13-56); Albumin, Serum 3.5 g/dL (3.2-5.0); Alkaline Phosphatase 85 U/L (45-117); Anion Gap 5 (5-15); BUN 36 mg/dL (7-18); BUN/Creat Ratio 11.9 RATIO (10-20); Calcium,Total 8.5 mg/dL (8.5-10.1); Chloride 110 mmol/L (98-107); Creatinine, Serum 3.03 mg/dL (0.55-1.02); EST Glomerular Filtration Rate 17 mL/min (>60); Est Glom Filt Rate - Afr Amer 21 mL/min (>60); Estimated Creatinine Clearance 24.83 ml/min; Globulin 3.1 g/dL (2.2-4.2); Glucose 152 mg/dL (74-106); Magnesium 2.3 mg/dL (1.6-2.6); Phosphorus 4.2 mg/dL (2.5-4.9); Potassium 4.1 mmol/L (3.5-5.1); Protein, Total 6.6 g/dL (6.4-8.2); Sodium Level 138 mmol/L (136-145); Thyroid Stim Hormone (TSH) 0.888 uIU/mL (0.358-3.740)
[2024-02-14 09:37] LABS: Hemoglobin A1c 5.2 % (3.8-5.6)
[2024-02-14] MEDS: Heparin Injection (Vial) 5,000 UNIT/ML VIAL 5000 UNIT SC ×2 (10:23→22:12)
[2024-02-14] MEDS: Polyethylene Glycol 3350 17 GM PACKET PO (10:23)
[2024-02-14] MEDS: Cyanocobalamin 500 MCG Tablet 1000 MCG PO (10:24)
[2024-02-14] MEDS: 0.9% Normal Saline (1000mL) 1,000 ML 100 ML IV ×2 (10:29→22:12)
--- NOTE | 2024-02-14 12:23 | CASEMGMT ---
ANABELA HURLEY Assessment: Face to Face with pt for initial transition planning/care coordination assessment. ANABELA HURLEY introduced self and role at [facility], pt voices understanding and consents to assessment. Pt is A&O x4 and answers all questions appropriately at this time. Pt lying in bed resting, in no distress. Care providers, pharmacy, and demographics verified/updated. Strata: 1 Admitting Dx: Renal Failure PCP: [facility] Specialists: Pancho gordon; Past Due Accounts Clerk Preferred [facility]acy: [facility] Insurance: [place] Prescription Benefit: yes LNOK: , Fausto; Friend, Ivet Living Arrangements: Pt lives with in a ranch home with 2 steps to enter. ADLs: Pt I at baseline Transportation: Pt drives self and denies concerns with transportation. DME: Denies HHC/SNF: Denies Hx of. Pt states no concerns with going home at time of dc. Pt states no further concerns/needs. CM to follow. Advised pt to ask CM if any further question/concerns/needs arise, voices understanding. Pt Goal: Home Plan: Home, follow for safe DC plan. Jewell PEÑALOZA CM
--- NOTE | 2024-02-14 18:04 | PCM.CONS.R ---
Assessment & Plan Assessment/Plan (1) GOPAL (acute kidney injury): (2) Proteinuria: PLAN: Plan Impression/Plan: AMINATA DAO, is a 48-year-old female with past history of hypertension, GERD, alopecia, and atrophic vaginitis. Patient presented to the hospital on 02/14/2024 with several months history of epigastric abdominal pain. Pain became severe enough associated with bilateral flank tenderness that she presented to the hospital on 02/14/2024. During workup of abdominal/flank pain, patient was found to have GOPAL with serum creatinine of 3.03 mg/dL associated with proteinuria. Nephrology is asked to see the patient because of GOPAL/proteinuria. Acute kidney injury. There is no prior history of chronic kidney disease. Renal function was normal as recently as August 2023. Serum creatinine was 0.64 mg/dL on 08/22/2023. Symptoms on presentation appears to be sudden. She was in her usual state of health until less than 24 hours prior to presentation. Patient presented with serum creatinine of 2.85 mg/dL on 02/14/2024 at 12:32 AM. Serum creatinine has increased to 3.03 mg/dL at 8:48 AM on the same day. There is no evidence of obstructive uropathy. Both CT abdomen and renal ultrasound were negative for hydronephrosis. Urinalysis shows significant proteinuria. There is 1+ occult blood on dipstick, but there is no hematuria on microscopic examination of urinalysis. There is significant proteinuria on UPCR as well (see below). At this point, the most likely explanation for GOPAL would be volume depletion particularly since she was on ARB and spironolactone prior to presentation. Will check CK to make sure were not missing rhabdomyolysis although there is lack of symptoms for rhabdo. I agree with volume expansion with isotonic IV fluid. There is no urgent need for kidney replacement therapy. Recheck renal function, volume status, acid-base status and electrolytes again tomorrow. Proteinuria. Urine protein to creatinine ratio (UPCR) is 7 g/g despite having been on ARB and MRA prior to admission. I cannot reconcile proteinuria with this presentation. Proteinuria seems to be isolated without even microscopic hematuria. This is unusual for acute GN. There is no anemia or hypercalcemia to suggest paraprotein disease. Moreover, although patient has nephrotic range proteinuria with UPCR, her serum albumin is normal at 3.5 g/dL. There is also no significant edema, so I have low suspicion for nephrotic syndrome at this point. Recheck urinalysis and UPCR again tomorrow. I will also check urine albumin creatinine ratio to see if there is any discrepancy between total proteinuria and albuminuria. If significant amount of urine protein persists, I will check serologies. If renal function continue to worsen despite volume expansion, the patient was made aware that she may need a kidney biopsy. HPI Consult Data Date of Consult: 02/14/24 HPI Narrative Reason for Consultation: Acute kidney injury HPI Narrative: AMINATA DAO, is a 48-year-old female with past history of hypertension, gastritis, alopecia, and atrophic vaginitis. Patient presented to the hospital on 02/14/2024 with severe abdominal and bilateral flank pain which started on the day of presentation. Patient has a history of chronic abdominal pain which waxes and wane. The patient has been evaluated by letter carrier in [place], [place], where she used to live. She was told that she has gastritis. Abdominal pain which started 1 day prior to presentation. Abdominal pain occurred in the afternoon of 02/13/2024 while she was at work. At first, the patient thought that pain was musculoskeletal. She was able to eat dinner without nausea vomiting prior to presentation. However, patient woke up at around midnight on 02/14/2024 with severe pain which led her to present to the ED. During the workup in ED, patient was found to have serum creatinine of 2.85 mg/dL at 12:30 AM on 02/14/2024. Serum creatinine increased to 3.03 mg/dL 8 hours later. Nephrology is asked to see the patient because of GOPAL. Last available serum creatinine prior to this admission was from August 2023. At that time, serum creatinine was 0.64 mg/dL on 08/22/2023. The patient has been in her usual state of health prior to the afternoon of the day before presentation. There has been no chronic nausea, vomiting or diarrhea prior to presentation. She denies gross hematuria. There has been no edema of the extremities. She denies urinary frequency, urgency, hesitancy or incontinence. She has not noticed urinary frothing until today. Patient denies new medication change. She denies chronic use of NSAIDs although she did take 2 ibuprofen for abdominal pain prior to presentation to ED. Urinalysis showed 4+ protein on dipstick without microscopic hematuria. Urine protein to creatinine ratio from 02/14/2024 is 7.04 g/g. Serum albumin is normal at 3.5 g/dL. Renal ultrasound from 02/14/2024 showed normal-sized kidneys without hydronephrosis. CT abdomen/pelvis showed bilateral perinephric stranding. Prior to admission, patient was on spironolactone for treatment of alopecia. She was also on olmesartan for treatment of hypertension. The patient denies chronic use of NSAIDs. [facility] Medical History Hair loss Fatigue Hot flashes Atrophic vaginitis Family history of bladder cancer Family history of colon cancer in father Family history of breast cancer Chronic gastritis Ganglion cyst Ovarian cyst History of depression Hypertension Home Medications ?Medication ?Instructions ?Recorded ?Last Taken ?Type cholecalciferol (vitamin D3) 250 250 mcg PO QWEEK REPLACEMENT 12/15/19 Unknown History mcg (10,000 unit) capsule cyanocobalamin (vitamin B-12) 1,000 mcg PO DAILY 12/15/19 Unknown History 1,000 mcg capsule olmesartan 20 mg tablet (Benicar) 20 mg PO DAILY 12/15/19 Unknown History cetirizine 10 mg capsule (Zyrtec) 10 mg PO DAILY PRN allergic 11/16/21 Unknown History symptoms ondansetron 4 mg disintegrating 4 mg PO Q8H PRN PRN Nausea #10 tabs 04/20/23 02/10/24 Rx tablet estradiol 0.01% (0.1 mg/gram) See Rx Instructions vaginal 01/27/24 Unknown Rx vaginal cream .COMPLEX #42.5 grams pantoprazole 20 mg tablet,delayed 20 mg PO DAILY 02/14/24 Unknown History release spironolactone 50 mg tablet 50 mg PO DAILY 02/14/24 Unknown History tizanidine 4 mg tablet 0 - 12 mg PO QHS 02/14/24 Unknown History Allergy/AdvReac Type Severity Reaction Status Date / Time clarithromycin (From Biaxin) Allergy Mild other Verified 02/14/24 00:29 erythromycin base (From Allergy Mild other Verified 02/14/24 00:29 Erythrocin) Family History Mother Bladder cancer Aunt Cancer appendix Father Cancer stomach Suicide Grandmother Cancer abdom. 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 Physical Exam Narrative General: Alert and oriented x3, ill-appearing. HEENT: Normocephalic, atraumatic. Mucous membrane dry without erythema. PERRLA, EOMI. Hearing is intact. Neck: Supple, no JVD. Trachea is midline. No thyromegaly or lymphadenopathy. Cardiovascular: Normal S1, S2. No rubs, murmurs, or gallops. Respiratory: Lungs are clear to auscultation bilaterally. No wheezing, rhonchi, or rales. Abdomen: Normal bowel sounds, soft, abdomen is mildly tender on palpation without guarding or rebound, no organomegaly. Extremities: No clubbing, cyanosis, or edema. Musculoskeletal: Full passive range of motion, no joint swelling. Psychiatric: Flat mood and affect. Skin: Warm and dry, no rash. Neurologic: Cranial nerve II to XII are grossly intact. No focal neurologic deficits. Lab / Micro Data 02/14/24 07:26 02/14/24 08:48 Labs: Laboratory Results - last 24 hr 02/14/24 00:32: WBC 10.0, RBC 4.25, Hgb 13.8, Hct 40.6, MCV 95.5, MCH 32.5 H, MCHC 34.0, RDW Std Deviation 41.3, RDW Coeff of Jeanie 11.9, Plt Count 295, MPV 9.0, Immature Gran % (Auto) 0.300, Neut % (Auto) 77.8 H, Lymph % (Auto) 11.5 L, [place] % (Auto) 9.4, Eos % (Auto) 0.7, Baso % (Auto) 0.3, Absolute Neuts (auto) 7.8 H, Absolute Lymphs (auto) 1.15, Nucleated RBC % 0, ESR 8, Sodium 139, Potassium 4.6, Chloride 103, Carbon Dioxide 30.0, Anion Gap 6, BUN 35 H, Creatinine 2.85 H, Estim Creat Clear Calc 25.87, Est GFR (MDRD) Af Amer 23 L, Est GFR (MDRD) Non-Af 19 L, BUN/Creatinine Ratio 12.3, Glucose 151 H, Calcium 9.5, Total Bilirubin 0.40, AST 22, ALT 19, Alkaline Phosphatase 101, Total Creatine Kinase 67, C-React Prot Ext Range < 2.90, Total Protein 7.4, Albumin 4.0, Globulin 3.4, Albumin/Globulin Ratio 1.2, Lipase 58 02/14/24 03:18: Urine Color Yellow, Urine Clarity Clear, Urine pH 7.0, Ur Specific [place] 1.010, Urine Protein 500 H, Urine Glucose (UA) 50 H, Urine Ketones Negative, Urine Occult Blood 25 H, Urine Nitrite Negative, Urine Bilirubin Negative, Urine Urobilinogen Normal, Ur Leukocyte Esterase Negative, Urine RBC 0 SEEN, Urine WBC 0 SEEN, Ur Squamous Epith Cells 0 SEEN, Urine Bacteria 0 SEEN, Urine Mucus 0 SEEN, U Random Total Protein 305.3 H, Ur Random Sodium 59, Urine Creatinine 43.40, Protein/Creatinin Ratio 7035 H 02/14/24 04:26: RILEY-1 Antibody TNP, SS-A/Ro IgG Antibody TNP, SS-B/La IgG Antibody TNP, Sm (Hendrix) Antibody TNP, MATH AND SCIENCE INSTRUCTOR Antibody TNP, Scl-70 Scleroderma Ab TNP, Double Strand DNA Ab TNP, Antichromatin Antibodies TNP, Centromere B Antibody TNP 02/14/24 07:26: WBC 9.9, RBC 4.00 L, Hgb 13.0, Hct 38.9, MCV 97.3, MCH 32.5 H, MCHC 33.4, RDW Std Deviation 42.5, RDW Coeff of Jeanie 11.9, Plt Count 259, MPV 9.3, Immature Gran % (Auto) 0.500, Neut % (Auto) 75.8 H, Lymph % (Auto) 8.1 L, [place] % (Auto) 15.0 H, Eos % (Auto) 0.1, Baso % (Auto) 0.5, Absolute Neuts (auto) 7.5, Absolute Lymphs (auto) 0.80 L, Nucleated RBC % 0, Sodium Cancelled, Potassium Cancelled, Chloride Cancelled, Carbon Dioxide Cancelled, Anion Gap Cancelled, BUN Cancelled, Creatinine Cancelled, Estim Creat Clear Calc Cancelled, Est GFR (MDRD) Af Amer Cancelled, Est GFR (MDRD) Non-Af Cancelled, BUN/Creatinine Ratio Cancelled, Glucose Cancelled, Hemoglobin A1c 5.2, Calcium Cancelled, Phosphorus Cancelled, Magnesium Cancelled, Total Bilirubin Cancelled, AST Cancelled, ALT Cancelled, Alkaline Phosphatase Cancelled, Total Protein Cancelled, Albumin Cancelled, Globulin Cancelled, Albumin/Globulin Ratio Cancelled, TSH Cancelled 02/14/24 08:48: Sodium 138, Potassium 4.1, Chloride 110 H, Carbon Dioxide 23.0, Anion Gap 5, BUN 36 H, Creatinine 3.03 H, Estim Creat Clear Calc 24.83, Est GFR (MDRD) Af Amer 21 L, Est GFR (MDRD) Non-Af 17 L, BUN/Creatinine Ratio 11.9, Glucose 152 H, Calcium 8.5, Phosphorus 4.2, Magnesium 2.3, Total Bilirubin 0.40, AST 25, ALT 18, Alkaline Phosphatase 85, Total Protein 6.6, Albumin 3.5, Globulin 3.1, Albumin/Globulin Ratio 1.1, TSH 0.888 Rhythm Strip Rhythm Strip: Sinus Rhythm Rate: 87 Ectopy: None Imaging Radiology Impression Abdomen/Pelvis CT 02/14/24 01:07 IMPRESSION: Bilateral perinephric stranding nonspecific, can be seen with acute process such as pyelonephritis or other inflammatory process. No urolithiasis or hydronephrosis. Electronically Signed: Vania Conroy MD at 2:30 EST , Renal Ultrasound 02/14/24 04:16 IMPRESSION: Trace perinephric fluid bilaterally. Bilateral prominent pyramids with echogenic cortex in the kidneys. Medical renal disease cannot be excluded. Electronically Signed: Bebo Ng DO at 16:13 EST ,
[2024-02-14 20:31] LABS: Bacteria 0 SEEN /hpf (None Seen); Mucous, Urine 0 SEEN /hpf (<or=2+)
[2024-02-14 20:32] LABS: Color, Urine Yellow (Yellow); Glucose, Dipstick Normal (Normal); Ketone-Dipstick Negative (Negative); Leukocyte Esterase-Dipstick Negative /ul (Negative); Nitrite-Dipstick Negative (Negative); Occult Blood-Urine 25 /ul (Negative); Protein-Dipstick 100 mg/dl (Negative); Urine Bilirubin Dipstick Negative (Negative); Urine Clarity Clear (Clear); Urine Urobilinogen Normal (Normal)
[2024-02-14 20:54] LABS: Red Blood Cells-Urine 0-5 SEEN /hpf (0-5); Squamous Epithelial Cells - UA 0-5 SEEN /hpf (5-10); White Blood Cells 0-5 SEEN /hpf (0-5)
[2024-02-14 21:27] LABS: Microalbumin:Creatinine Ratio 868.9 mg/g CRE (<30 mg/g CRE); Protein, Urine (Random) 61.6 mg/dL (<11.9)
[2024-02-15 02:15] VITALS: BP 152/92; PULSE 72; RESP 16; TEMP 36.7; O2SAT 98
[2024-02-15] MEDS: HYDROmorphone 0.5 MG/0.5 ML SYRINGE IV (05:00)
[2024-02-15 06:00] VITALS: BMI 23.2
[2024-02-15 06:34] LABS: Absolute Lymphocyte Count 1.27 X10^3/uL (0.83-4.51); Absolute Neutrophil Count 4.3 X10^3/uL (2.0-7.7); Basophil# 0.02 X10^3/uL; Basophil% 0.3 % (0-1); Eosinophil# 0.03 X10^3/uL; Eosinophils% 0.5 % (0-5); Hematocrit 33.4 % (37-47); Lymphocyte # 1.27 X10^3/ul (0.83-4.51); Lymphocyte % 19.8 % (19-41); Mean Corp Hgb Conc 32.9 g/dL (32-36); Mean Corpuscular Volume 97.1 fL (81-99); Mean Platelet Vol. 9.3 fl (6.2-12.0); Monocyte# 0.82 X10^3/uL; Monocyte% 12.8 % (0-10); NRBC Flagged by Analyzer 0 % (0-5); Neutrophil # 4.26 X10^3/uL (2.7-7.7); Neutrophil % 66.3 % (47-70); Platelet Count 193 K/mm3 (150-450); RBC Distribution Width SD 42.6 fl (35.1-43.9); Red Blood Count 3.44 M/mm3 (4.2-5.4); White Blood Count 6.4 K/mm3 (4.4-11.0)
[2024-02-15 07:17] LABS: Anion Gap 6 (5-15); BUN 27 mg/dL (7-18); BUN/Creat Ratio 13.1 RATIO (10-20); Calcium,Total 8.8 mg/dL (8.5-10.1); Chloride 113 mmol/L (98-107); Creatinine, Serum 2.06 mg/dL (0.55-1.02); EST Glomerular Filtration Rate 27 mL/min (>60); Est Glom Filt Rate - Afr Amer 33 mL/min (>60); Estimated Creatinine Clearance 36.52 ml/min; Glucose 127 mg/dL (74-106); Potassium 3.8 mmol/L (3.5-5.1); Sodium Level 141 mmol/L (136-145)
[2024-02-15] MEDS: Ondansetron 4 MG/2 ML Vial IV (07:46)
[2024-02-15] MEDS: 0.9% Normal Saline (1000mL) 1,000 ML 100 ML IV ×2 (07:50→18:34)
[2024-02-15] MEDS: Heparin Injection (Vial) 5,000 UNIT/ML VIAL 5000 UNIT SC (07:51)
[2024-02-15 07:55] LABS: CPK Total, Creatine Kinase 43 U/L (26-192)
--- NOTE | 2024-02-15 08:21 | PN.HOSP_ITS ---
Subjective Subjective Feels little bit better, no issues overnight Objective Data Objective Data Vital Signs: Vital Signs Temp Pulse Resp BP Pulse Ox O2 Del Method 98.0 F 72 16 152/92 H 98 Room Air 02/15/24 02:15 02/15/24 02:15 02/15/24 02:15 02/15/24 02:15 02/15/24 02:15 02/15/24 03:00 Oxygen Delivery Method Room Air Weight: 166 lb 0.129 oz Body Mass Index (BMI) 23.2 Intake & Output: Intake and Output for Last 24 Hours 02/14/24 02/15/24 02/16/24 03:59 03:59 03:59 Intake Total 1000 / 1000 1000 / 1000 1101.67 / 1101.67 Output Total 400 / 400 Balance 1000 / 1000 600 / 600 1101.67 / 1101.67 Lab / Micro Data 02/15/24 06:15 02/15/24 06:15 Labs: Laboratory Results - last 24 hr 02/14/24 07:26: Sodium Cancelled, Potassium Cancelled, Chloride Cancelled, Carbon Dioxide Cancelled, Anion Gap Cancelled, BUN Cancelled, Creatinine Cancelled, Estim Creat Clear Calc Cancelled, Est GFR (MDRD) Af Amer Cancelled, Est GFR (MDRD) Non-Af Cancelled, BUN/Creatinine Ratio Cancelled, Glucose Cancelled, Hemoglobin A1c 5.2, Calcium Cancelled, Phosphorus Cancelled, Magnesium Cancelled, Total Bilirubin Cancelled, AST Cancelled, ALT Cancelled, Alkaline Phosphatase Cancelled, Total Protein Cancelled, Albumin Cancelled, Globulin Cancelled, Albumin/Globulin Ratio Cancelled, TSH Cancelled 02/14/24 08:48: Sodium 138, Potassium 4.1, Chloride 110 H, Carbon Dioxide 23.0, Anion Gap 5, BUN 36 H, Creatinine 3.03 H, Estim Creat Clear Calc 24.83, Est GFR (MDRD) Af Amer 21 L, Est GFR (MDRD) Non-Af 17 L, BUN/Creatinine Ratio 11.9, G lucose 152 H, Calcium 8.5, Phosphorus 4.2, Magnesium 2.3, Total Bilirubin 0.40, AST 25, ALT 18, Alkaline Phosphatase 85, Total Protein 6.6, Albumin 3.5, Globulin 3.1, Albumin/Globulin Ratio 1.1, TSH 0.888 02/14/24 20:15: Urine Color Yellow, Urine Clarity Clear, Urine pH 6.0, Ur Specific [place] 1.010, Urine Protein 100 H, Urine Glucose (UA) Normal, Urine Ketones Negative, Urine Occult Blood 25 H, Urine Nitrite Negative, Urine Bilirubin Negative, Urine Urobilinogen Normal, Ur Leukocyte Esterase Negative, Urine RBC 0-5 SEEN, Urine WBC 0-5 SEEN, Ur Squamous Epith Cells 0-5 SEEN, Urine Bacteria 0 SEEN, Urine Mucus 0 SEEN, Ur Random Microalbumin 444.0, U Random Total Protein 61.6 H, Urine Creatinine 51.10, Microalb/Creat Ratio 868.9 H 02/15/24 06:15: WBC 6.4, RBC 3.44 L, Hgb 11.0 L, Hct 33.4 L, MCV 97.1, MCH 32.0, MCHC 32.9, RDW Std Deviation 42.6, RDW Coeff of Jeanie 12.0, Plt Count 193, MPV 9.3, Immature Gran % (Auto) 0.300, Neut % (Auto) 66.3, Lymph % (Auto) 19.8, [place] % (Auto) 12.8 H, Eos % (Auto) 0.5, Baso % (Auto) 0.3, Absolute Neuts (auto) 4.3, Absolute Lymphs (auto) 1.27, Nucleated RBC % 0, Sodium 141, Potassium 3.8, C hloride 113 H, Carbon Dioxide 22.0, Anion Gap 6, BUN 27 H, Creatinine 2.06 H, Estim Creat Clear Calc 36.52, Est GFR (MDRD) Af Amer 33 L, Est GFR (MDRD) Non-Af 27 L, BUN/Creatinine Ratio 13.1, Glucose 127 H, Calcium 8.8, Total Creatine Kinase 43 Radiography Diagnostic Testing: Radiology Impression Renal Ultrasound 02/14/24 04:16 IMPRESSION: Trace perinephric fluid bilaterally. Bilateral prominent pyramids with echogenic cortex in the kidneys. Medical renal disease cannot be excluded. Electronically Signed: Bebo Ng DO at 16:13 EST Reading Location ID and State: [facility] / [place] Tel [phone], Service support , Rhythm Strip Rhythm Strip: Sinus Rhythm Rate: 87 Ectopy: None Physical Exam Narrative General: Alert, Oriented x3, Cooperative, No apparent distress HEENT: Atraumatic, PERRLA, EOMI, Normocephalic Oral: Moist Mucosa Neck: Supple, No JVD Lungs: Clear to auscultation, Normal air movement, No rhonchi, No wheeze, No rales Cardiovascular: Regular rate, Regular Rhythm, Normal S1, Normal S2, No murmurs Abdomen: Soft, Non Tender, Non-Distended, No Hepato-splenomegaly Extremities: No edema, Capillary Refill Less than 3 Seconds Skin: No rashes, No breakdown Musculoskeletal: No Tenderness to Palpation of Joints or Extremities Neurological: No focal neurological deficits, Motor Exam 5/5 strength throughout, Sensory exam intact to light touch and pain Psych/Mental Status: Normal Affect, Appropriate Assessment & Plan Assessment/Plan (1) GOPAL (acute kidney injury): (2) Proteinuria: (3) Flank pain: PLAN: Plan 1. GOPAL with proteinuria ? Unclear as to the proteinuria etiology ? She is on Aldactone and olmesartan so this could definitely be dehydration as part of the reason for her GOPAL ? Will repeat urinalysis and urine protein creatinine ratio today ? Appreciate nephrology's assistance ? Serologies are pending ? Continue with IV fluids 2. Essential HTN ? Hold Aldactone and olmesartan given GOPAL 3. GERD ? Stable ? Holding Protonix secondary to GOPAL DVT: Heparin Charges/Coding Visit Charges Inpatient E&M: 63910 Subs Hosp L2
[2024-02-15 08:35] LABS: Bacteria 0 SEEN /hpf (None Seen); Mucous, Urine 0 SEEN /hpf (<or=2+); Red Blood Cells-Urine 0 SEEN /hpf (0-5); Squamous Epithelial Cells - UA 0 SEEN /hpf (5-10); White Blood Cells 0 SEEN /hpf (0-5)
[2024-02-15 08:41] LABS: Color, Urine Yellow (Yellow); Glucose, Dipstick Normal (Normal); Ketone-Dipstick Negative (Negative); Leukocyte Esterase-Dipstick Negative /ul (Negative); Nitrite-Dipstick Negative (Negative); Occult Blood-Urine 25 /ul (Negative); Protein-Dipstick 30 mg/dl (Negative); Urine Bilirubin Dipstick Negative (Negative); Urine Clarity Clear (Clear); Urine Urobilinogen Normal (Normal)
[2024-02-15 08:49] LABS: Protein, Urine (Random) 28.5 mg/dL (<11.9); Protein:Creat Ratio 438 mg/g CRE (0-200)
[2024-02-15 09:16] VITALS: BP 146/76; PULSE 63; RESP 16; TEMP 36.5; O2SAT 96
[2024-02-15 12:48] VITALS: BP 134/82; PULSE 83; RESP 16; TEMP 36.6; O2SAT 96
[2024-02-15] MEDS: Acetaminophen 325 MG Tablet 650 MG PO (16:49)
[2024-02-15 16:53] VITALS: BP 156/82; PULSE 66; RESP 16; TEMP 36.7; O2SAT 100
[2024-02-15 21:36] VITALS: BP 154/80; PULSE 54; RESP 18; TEMP 36.7; O2SAT 98
--- NOTE | 2024-02-15 21:44 | EKG12_ITS ---
Test Reason : CP Blood Pressure : */* mmHG Vent. Rate : 52 BPM Atrial Rate : 52 BPM P-R Int : 160 ms QRS Dur : 90 ms QT Int : 436 ms P-R-T Axes : 56 -13 33 degrees QTcB Int : 405 ms Sinus bradycardia Otherwise normal ECG When compared with ECG of 14-Feb-2024 01:04, MANUAL COMPARISON REQUIRED DATA IS UNCONFIRMED Confirmed by AALIYAH DE, RILEY ([id number]), assistant film editor HELGA PACE ([id number]) on 02/16/2024 10:00:29 AM Referred By: MIKHAIL Confirmed By: RILEY FISCHER MD
[2024-02-15 22:43] LABS: Troponin-I HS 16 pg/mL (3.0-54.0)
[2024-02-16 00:44] LABS: Troponin-I HS 17 pg/mL (3.0-54.0)
[2024-02-16 04:31] VITALS: BP 177/88; PULSE 60; RESP 18; TEMP 36.9; O2SAT 100
[2024-02-16 04:37] LABS: Absolute Lymphocyte Count 1.88 X10^3/uL (0.83-4.51); Absolute Neutrophil Count 3.2 X10^3/uL (2.0-7.7); Basophil# 0.02 X10^3/uL; Basophil% 0.3 % (0-1); Eosinophil# 0.08 X10^3/uL; Eosinophils% 1.3 % (0-5); Hematocrit 32.2 % (37-47); Hemoglobin 10.7 g/dL (12.0-15.0); Lymphocyte # 1.88 X10^3/ul (0.83-4.51); Lymphocyte % 31.6 % (19-41); Mean Corp Hgb Conc 33.2 g/dL (32-36); Mean Corpuscular Hgb 32.6 pg (27.0-32.0); Mean Corpuscular Volume 98.2 fL (81-99); Mean Platelet Vol. 9.4 fl (6.2-12.0); Monocyte# 0.75 X10^3/uL; Monocyte% 12.6 % (0-10); NRBC Flagged by Analyzer 0 % (0-5); Neutrophil # 3.21 X10^3/uL (2.7-7.7); Platelet Count 198 K/mm3 (150-450); RBC Distribution Width CV 11.9 % (11.6-14.6); Red Blood Count 3.28 M/mm3 (4.2-5.4)
[2024-02-16] MEDS: Acetaminophen 325 MG Tablet 650 MG PO (04:37)
[2024-02-16 04:57] LABS: Anion Gap 2 (5-15); BUN 16 mg/dL (7-18); BUN/Creat Ratio 13.3 RATIO (10-20); Calcium,Total 8.6 mg/dL (8.5-10.1); Chloride 116 mmol/L (98-107); EST Glomerular Filtration Rate 51 mL/min (>60); Est Glom Filt Rate - Afr Amer 61 mL/min (>60); Estimated Creatinine Clearance 62.69 ml/min; Glucose 117 mg/dL (74-106); Potassium 3.8 mmol/L (3.5-5.1); Sodium Level 144 mmol/L (136-145); Troponin-I HS 15 pg/mL (3.0-54.0)
[2024-02-16] MEDS: oxyCODONE 5 MG Tablet PO (05:00)
[2024-02-16] MEDS: Ondansetron 4 MG/2 ML Vial IV (05:02)
[2024-02-16 06:00] VITALS: BMI 23.6
[2024-02-16] MEDS: Heparin Injection (Vial) 5,000 UNIT/ML VIAL 5000 UNIT SC (07:43)
[2024-02-16 08:46] VITALS: BP 133/87; PULSE 70; RESP 16; TEMP 36.5; O2SAT 97
--- NOTE | 2024-02-16 09:29 | PCM.DC ---
Discharge Instructions Diet Discharge Diet: Low fat / Low cholesterol DC O2, CPAP, BIPAP needs Home O2 Discharge instructions: No Dressing / Incision Discharge Activity: Return to Normal Activity Dressing / Incision Call your doctor if you observe: Fever of 101 or Higher, Shortness of breath, Dizziness, Fainting spells, Swelling in the ankles, Chest pain and Increased palpitations (irregular heartbeat) Follow Up Care Test Results: Test results from this visit will be discussed in further detail at your follow-up appointment, if applicable. Discharge Plan Admission Admit Date/Time: 02/14/24 04:05 Attending Provider: Ilya Peña Primary Care Provider: GALILEA LESLIE Consulting Providers: Susy Carranza; Criselda South Instructions Additional Instructions / Restrictions: hold your blood pressure medications until seen by nephrology. Recommend outpatient follow-up with your PCP to recheck your kidney function Discharge Orders/Prescriptions Prescriptions: Continued cholecalciferol (vitamin D3) 250 mcg (10,000 unit) capsule 250 mcg PO QWEEK cyanocobalamin (vitamin B-12) 1,000 mcg capsule 1,000 mcg PO DAILY Zyrtec 10 mg capsule 10 mg PO DAILY PRN (Reason: allergic symptoms) estradiol 0.01 % (0.1 mg/gram) cream See Rx Instructions vaginal .COMPLEX Qty: 42.5 2RF Rx Instructions: small amount as directed vaginal every other day X 4 weeks then twice a week; ondansetron 4 mg tablet,disintegrating 4 mg PO Q8H PRN PRN (Reason: Nausea) Qty: 10 0RF pantoprazole 20 mg tablet,delayed release (DR/EC) 20 mg PO DAILY tizanidine 4 mg tablet 0 - 12 mg PO QHS Held olmesartan [Benicar] 20 mg tablet 20 mg PO DAILY Hold Instructions: Resume on 03/05/24. spironolactone 50 mg tablet 50 mg PO DAILY Hold Instructions: Resume on 03/05/24. Patient Comments: pt states she has not taken it for 2 weeks Referrals / Follow Up: GALILEA LESLIE [Other] Criselda South MD [Med Staff - Consulting] - Within 2 Weeks NOT,DEFINED [Non-Staff] - Disposition Disposition (needs filled in before D/C Order can be placed): Home, Self Care
--- NOTE | 2024-02-16 10:59 | PCM.DC.SUM ---
Providers Date of Admission: 02/14/24 Primary Care Physician: GALILEA LESLIE Consultations 02/14/24 04:48 Consult: Nephrology Routine Consulting Provider: Criselda South Reason for Consult: GOPAL EMERGENT Consult: No MD Notified: Yes Date Notified: 02/14/24 Time Notified: 09:39 Method of Notification: Answering Service Reason For Visit: REBAK FAILURE Diagnosis Discharge Diagnosis (1) GOPAL (acute kidney injury): Status: Acute Code(s): N17.9 - Acute kidney failure, unspecified (2) Proteinuria: Status: Acute Code(s): R80.9 - Proteinuria, unspecified (3) Flank pain: Status: Acute Code(s): R10.9 - Unspecified abdominal pain Medications at Discharge Home Medications cholecalciferol (vitamin D3) 250 mcg (10,000 unit) capsule 250 mcg PO QWEEK REPLACEMENT 12/15/19 cyanocobalamin (vitamin B-12) 1,000 mcg capsule 1,000 mcg PO DAILY 12/15/19 olmesartan 20 mg tablet (Benicar) 20 mg PO DAILY 12/15/19 cetirizine 10 mg capsule (Zyrtec) 10 mg PO DAILY PRN allergic symptoms 11/16/21 ondansetron 4 mg disintegrating tablet 4 mg PO Q8H PRN PRN Nausea #10 tabs 04/20/23 estradiol 0.01% (0.1 mg/gram) vaginal cream See Rx Instructions vaginal .COMPLEX #42.5 grams 01/27/24 pantoprazole 20 mg tablet,delayed release 20 mg PO DAILY 02/14/24 spironolactone 50 mg tablet 50 mg PO DAILY 02/14/24 tizanidine 4 mg tablet 0 - 12 mg PO QHS 02/14/24 Hospital Course Operations None Procedures None Summary of Care Provided Minutes Spent on Discharge: 36 Hospital Course: Per HPI: AMINATA DAO, is a 48 F who presented to the emergency department at [facility] on 02/14/2024 with a chief complaint of flank pain. Patient states that for several months now she has been having epigastric abdominal pain and mid abdominal pain every time she eats. She follows with gastroenterology and has appointment upcoming in March. She has asked them about this and they told her it was probably her new medications. At this point the medications were started sometime ago she states. She stated initially she lost quite a bit of weight because she had been able to eat as much for the last several weeks she has gained back 25 pounds. She is not having any swelling. She reported that she was feeling fairly close to her baseline and went out to dinner and was able to tolerate dinner without a problem. She was able to have a glass of wine and then went home and started having back pain that was bilateral flanks. She thought that she had some muscular irritation so she soaked in the bathtub and took 2 ibuprofen but the pain persisted and slowly worsened. She stated some of the most severe pain she is ever had so she came emergency department to be evaluated. She indicated the pain was so horrible that she had vomiting. She said no other nausea, vomiting or diarrhea today. She has no known fever or chills. She has had no rashes. She has not been on any antibiotics or had any viral illnesses/bacterial illnesses lately. She been on Protonix for considerable amount of time and takes Aldactone for hair loss and olmesartan for her blood pressure. She states she has been urinating more volume than usual and seems to have more frequency. She is having some urination at night which is atypical for her. She does states she also has constipation issues at baseline but seems like it is more significant lately. She has had no rashes. Patient denies any supplement use. Vital signs on presentation showed a temperature of 97.8, heart rate 98, blood pressure 140/76 respiratory rate 18 and pulse ox was 98% on room air. Her CBC was unremarkable except for left shift with a 77.8% neutrophilia. Chemistry panel had normal electrolytes but her BUN was 35 and her serum creatinine was 2.85. Serum glucose was 150 nonfasting. Liver function was unremarkable. Lipase was normal at 58. Her UA showed a specific gravity 1.01. She had 500 protein in her urine with small glucose and occult blood but no white cells red cells or bacteria were noted. Urine sodium was 59. CT of the abdomen pelvis shows bilateral nephritic stranding that is nonspecific and can be seen with acute processes such as pyelonephritis or other inflammatory processes, she had no urolithiasis or hydronephrosis. No other abnormalities were noted. She was given pain medication and IV fluids in the emergency department and given the severity of her renal dysfunction request for admission was made. Hospital Course: 1. GOPAL with proteinuria and abdominal pain/essential HTN?48-year-old female's been having abdominal pain on and off for about a year presented to the hospital with flank pain and abdominal pain. She was found to have an GOPAL and significant proteinuria in the range of nephrotic syndrome however she had no other signs and symptoms of nephrotic syndrome. Serologies were obtained and pending, she states that she had been worked up for rheumatoid arthritis in the past which was negative. Nephrology initially was concern for the possibly being a do a biopsy however with hydration and holding her olmesartan and Aldactone her renal function improved as did her proteinuria. I discussed with her the possibility of discharge that she expressed understanding of the risk benefits going home and would like to go home today. She will need to follow-up with nephrology as an outpatient to follow-up with the serologies that were obtained. Will hold her olmesartan and Aldactone on discharge I discussed with her the need to hold these until she follows up with nephrology as an outpatient. Her creatinine on the day of discharge was 1.2, on admission it peaked to 3.03. Physical Exam Narrative General: Alert, Oriented x3, Cooperative, No apparent distress HEENT: Atraumatic, PERRLA, EOMI, Normocephalic Oral: Moist Mucosa Neck: Supple, No JVD Lungs: Clear to auscultation, Normal air movement, No rhonchi, No wheeze, No rales Cardiovascular: Regular rate, Regular Rhythm, Normal S1, Normal S2, No murmurs Abdomen: Soft, Non Tender, Non-Distended, No Hepato-splenomegaly Extremities: No edema, Capillary Refill Less than 3 Seconds Skin: No rashes, No breakdown Musculoskeletal: No Tenderness to Palpation of Joints or Extremities Neurological: No focal neurological deficits, Motor Exam 5/5 strength throughout, Sensory exam intact to light touch and pain Psych/Mental Status: Normal Affect, Appropriate Weight / BMI Weight Weight: 168 lb 13.985 oz Body Mass Index (BMI) 23.6 ABG / Lab / Microbiology Data 02/16/24 04:26 02/16/24 04:26 Laboratory: Laboratory Results - last 24 hr 02/15/24 22:19: Troponin I High Sens 16 02/16/24 00:13: Troponin I High Sens 17 02/16/24 04:26: WBC 6.0, RBC 3.28 L, Hgb 10.7 L, Hct 32.2 L, MCV 98.2, MCH 32.6 H, MCHC 33.2, RDW Std Deviation 43.0, RDW Coeff of Jeanie 11.9, Plt Count 198, MPV 9.4, Immature Gran % (Auto) 0.200, Neut % (Auto) 54.0, Lymph % (Auto) 31.6, [place] % (Auto) 12.6 H, Eos % (Auto) 1.3, Baso % (Auto) 0.3, Absolute Neuts (auto) 3.2, Absolute Lymphs (auto) 1.88, Nucleated RBC % 0, Sodium 144, Potassium 3.8, Chloride 116 H, Carbon Dioxide 26.0, Anion Gap 2 L, BUN 16, Creatinine 1.20 H, Estim Creat Clear Calc 62.69, Est GFR (MDRD) Af Amer 61, Est GFR (MDRD) Non-Af 51 L, BUN/Creatinine Ratio 13.3, Glucose 117 H, Calcium 8.6, Troponin I High Sens 15 D/C Instructions Discharge Diet: Low fat / Low cholesterol Call your doctor if you observe: Fever of 101 or Higher, Shortness of breath, Dizziness, Fainting spells, Swelling in the ankles, Chest pain and Increased palpitations (irregular heartbeat) DC O2, CPAP, BIPAP Needs Home O2 Discharge instructions: No Meaningful Use Info Meaningful Use Meaningful Use Diagnoses (Choose all that apply): None applicable Ischemic Stroke Statin Dosing Therapy Reference: STATIN DOSE THERAPY REFERENCE: * Patients > 75 years receive moderate or high dose statin therapy. * Patients 75 years or YOUNGER should receive HIGH intensity statin dose unless contraindicated. You will be required to document reason for non-treatment if statin daily dose does not meet guidelines. HIGH DOSE STATIN THERAPY DAILY Atorvastatin > than or = to 40 mg Rosuvastatin > than or = to 20 mg Amlodipine + Atorvastatin > than or = to 2.5/40 mg Ezetimibe + Simvastatin 10/80 mg Simvastatin 80mg Discharge Plan Admission Admit Date/Time: 02/14/24 04:05 Attending Provider: Ilya Peña Primary Care Provider: GALILEA LESLIE Consulting Providers: Susy Carranza; Criselda South Instructions Additional Instructions / Restrictions: hold your blood pressure medications until seen by nephrology. Recommend outpatient follow-up with your PCP to recheck your kidney function Discharge Orders/Prescriptions Prescriptions: Continued cholecalciferol (vitamin D3) 250 mcg (10,000 unit) capsule 250 mcg PO QWEEK cyanocobalamin (vitamin B-12) 1,000 mcg capsule 1,000 mcg PO DAILY Zyrtec 10 mg capsule 10 mg PO DAILY PRN (Reason: allergic symptoms) estradiol 0.01 % (0.1 mg/gram) cream See Rx Instructions vaginal .COMPLEX Qty: 42.5 2RF Rx Instructions: small amount as directed vaginal every other day X 4 weeks then twice a week; ondansetron 4 mg tablet,disintegrating 4 mg PO Q8H PRN PRN (Reason: Nausea) Qty: 10 0RF pantoprazole 20 mg tablet,delayed release (DR/EC) 20 mg PO DAILY tizanidine 4 mg tablet 0 - 12 mg PO QHS Held olmesartan [Benicar] 20 mg tablet 20 mg PO DAILY Hold Instructions: Resume on 03/05/24. spironolactone 50 mg tablet 50 mg PO DAILY Hold Instructions: Resume on 03/05/24. Patient Comments: pt states she has not taken it for 2 weeks Referrals / Follow Up: GALILEA LESLIE [Other] Criselda South MD [Med Staff - Consulting] - Within 2 Weeks NOT,DEFINED [Non-Staff] - Disposition Disposition (needs filled in before D/C Order can be placed): Home, Self Care Charges/Coding Visit Charges Inpatient E&M: 03070 Disch Hosp >30min
[2024-02-16 14:07] LABS: Anti-Centromere B Ab <0.2 AI (0.0-0.9); Anti-Chromatin <0.2 AI (0.0-0.9); Anti-Jo <0.2 AI (0.0-0.9); Anti-Scleroderma-70 AB <0.2 AI (0.0-0.9); Anti-dsDNA Ab <1 IU/mL (0-9); RNP Ab <0.2 AI (0.0-0.9); SJOGREN'S Anti-SS-A test < 0.2 AI (0.0-0.9); SJOGREN'S Anti-SS-B test < 0.2 AI (0.0-0.9); Smith Ab <0.2 AI (0.0-0.9)
--- NOTE | 2024-02-16 15:40 | CHAPLAIN ---
Type of Pastoral Visit ___ Initial Visit ___ Follow-up Visit ___ On-call Visit ___ General Patient Visit ___ Spiritual Assessment ___ Family Conference ___ Bereavement ___ Rapid Response ___ Code Blue ___ Other (describe below) Pastoral Care Referral From ___ Patient ___ Family ___ Nurse ___ Physician ___ Community Educator ___ Head Of Business Development ___ Other (describe below) Sacrament/Intervention ___ Active listening ___ Anointing ___ Mormonism ___ Bereavement ___ Communion ___ Barbara exploration ___ ___ Life review ___ Prayer ___ Reconciliation ___ Sacrament of Sick ___ Supportive presence ___ Wedding ___ Other (describe below) Pastoral Comments patient was discharged before s cash specialist could make a visit
[2024-02-17 06:07] LABS: Complement C3 108 mg/dL (82-167); Complement CH50 38 U/mL (>41); Cytoplasmic Ab (C-ANCA) <1:20 titer (Neg:<1:20); Perinuclear Ab (P-ANCA) <1:20 titer (Neg:<1:20)
== END 2024-02-16 12:04 | disposition home or self-care (01) | DRG 684 ==
LOC: ED 01:42 → MS3 04:24
PROVIDERS: Internal Medicine Nephrology; Admitting Provider Internal Medicine; Emergency Provider Emergency Medicine; Visit Provider Family Medicine
DX: N17.9 Acute kidney failure, unspecified (principal); I10 Essential (primary) hypertension; K59.09 Other constipation; K21.9 Gastro-esophageal reflux disease without esophagitis; Z79.899 Other long term (current) drug therapy; Z80.0 Family history of malignant neoplasm of digestive organs; Z80.52 Family history of malignant neoplasm of bladder
CPT/HCPCS: 36415; 74176; 76770; 80048; 80053; 81001; 82043; 82550; 82570; 83036; 83690; 83735; 84100; 84156; 84300; 84443; 84484; 85025; 85652; 86037; 86140; 86160; 86162; 86225; 86235; 93005; 94668; 97802; 99252; 99284; A4216; G0463; J2405

== ENCOUNTER → 2024-05-12 | Outpatient (CLI) | payer BC, SELFPAY ==
--- NOTE | 2024-05-12 16:45 | MRI_ITS ---
EXAM: Routine noncontrast MRI of the left hand. CLINICAL HISTORY: Pain at patton aspect of 4th metacarpal. COMPARISON: None. TECHNIQUE: Multi-planar and multi-sequence noncontrast MR imaging of the left hand. FINDINGS: Normal bone marrow signal. Tendons and soft tissue are unremarkable. Joints appear normal. No ganglion cyst is appreciated. MRI/Upper Ext/No Jt/ wo IMPRESSION: Normal exam. [facility]
== END | disposition home or self-care (01) ==
LOC: MRI 16:15
PROVIDERS: PCP Nurse Practitioner Family
DX: M67.40 Ganglion, unspecified site (principal)
CPT/HCPCS: 73218

== ENCOUNTER → 2024-12-07 | Outpatient (CLI) | payer BC, SELFPAY ==
--- NOTE | 2024-12-07 11:47 | RAD_ITS ---
PROCEDURE: ABDOMEN SINGLE VIEW 12/07/2024 REASON FOR EXAM: SITZ MARKER DAY 3 TECHNIQUE: Procedure Code: RADABD Modality: DX Procedure: ABDOMEN SINGLE VIEW COMPARISON: None. RAD/Abdomen Single View IMPRESSION: A total of 4 Sitz markers are seen, 1 in the region of the hepatic flexure, a 2 nd at the proximal transverse colon, a 3rd of the distal descending colon, and the 4th at the rectosigmoid region. The bowel-gas pattern is unremarkable. No mass or mass effect is seen. Wees-eu-murmcmbp degenerative changes of the visualized spine are seen. Mild asymmetric left sacroiliac joint degenerative changes also noted. Reading Location: [place] [id number]
== END | disposition home or self-care (01) ==
LOC: MTRAD 11:47
PROVIDERS: PCP Nurse Practitioner Family; Referring Provider Nurse Practitioner Acute Care; Visit Provider Nurse Practitioner Acute Care
DX: K59.00 Constipation, unspecified (principal)
CPT/HCPCS: 74018

== ENCOUNTER → 2024-12-09 | Outpatient (CLI) | payer BC, SELFPAY ==
--- NOTE | 2024-12-09 09:57 | RAD_ITS ---
PROCEDURE: RAD/Abdomen Single View
== END | disposition home or self-care (01) ==
LOC: MTRAD 09:56
PROVIDERS: PCP Nurse Practitioner Family; Referring Provider Nurse Practitioner Acute Care; Visit Provider Nurse Practitioner Acute Care
DX: K59.00 Constipation, unspecified (principal)
CPT/HCPCS: 74018

== ENCOUNTER 2024-12-23 06:28 | Day surgery (SDC) | payer BC, SELFPAY ==
--- NOTE | 2024-12-22 14:39 | PAT.ANESEVAL ---
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 When Was Last Pacemaker Check QUESTION #4 FULL TEXT: You/Your Family Experience fever (hyperthermia) with Anesthesia Last Oral Intake Last Oral intake: Last Oral Intake NPO since Meds taken in AM with sips of water? Meds patient instructed to take am of surgery PONV PONV - unemployment insurance director: PONV - unemployment insurance director Female Yes 12/21/24 14:48 HX of Motion Sickness No 12/21/24 14:48 HX of N/V After Surgery No 12/21/24 14:48 Non-Smoker Yes 12/21/24 14:48 Duration of Surgery greater No 12/21/24 14:48 than 60 minutes Number of Risk Factors 2 12/21/24 14:48 PONV Score Moderate Risk 12/21/24 14:48 Height & Weight Height & Weight: Anesthesia: Height & Weight Height 5 ft 8 in 10/20/24 13:32 Respiratory Assessment Respiratory Assessment - unemployment insurance director: Respiratory Tract Infection Hx - unemployment insurance director Hx Respiratory Tract Infection No 12/21/24 14:48 STOP Sleep Apnea STOP Sleep Apnea - unemployment insurance director: STOP Sleep Apnea - unemployment insurance director Hx Hypertension Yes: CONTROLLED WITH MEDS 12/21/24 14:48 Hx Sleep Apnea No 12/21/24 14:48 CPAP BIPAP Do you snore loudly (louder No 12/21/24 14:48 than talking or can be heard Do you often feel tired/ No 12/21/24 14:48 fatigued/ sleepy during daytime? Has anyone observed you stop No 12/21/24 14:48 breathing during sleep? STOP Results Negative 12/21/24 14:48 QUESTION #5 FULL TEXT : Do you snore loudly (louder than talking or can be heard through closed doors)? 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 Specify any problems Hx of Preganancy in last 3 No 12/21/24 14:48 Months Nurse Filling Out Transfusion [id number] 12/21/24 14:48 & Questions: Date: 12/21/24 12/21/24 14:48 Time: 14:52 12/21/24 14:48 Patient unable to answer at this time (ie. confused, unrespo /Reproduction History /Reproductive History - unemployment insurance director: /Reproductive Hx- unemployment insurance director Hx Now Gestational Age (in weeks): EDC: Hx Hx Para Hx Section SAB No 12/21/24 14:48 Does the father of the baby or his family experience fever w Father of the baby Malignant Hypertension history comment [facility] Medical History (Updated 12/21/24 @ 15:03 by Hugh Vieyra) Wears glasses Alcohol use Arthritis Anemia Back pain Vocal cord dysfunction Non-smoker Colonoscopy planned Sleep paralysis History of Holter monitoring History of echocardiogram Cardiology follow-up encounter Family history of breast cancer Family history of colon cancer in father Family history of bladder cancer Atrophic vaginitis Hot flashes Fatigue Hair loss Chronic gastritis Ganglion cyst Ovarian cyst History of depression Hypertension Home Medications Medication Instructions Recorded Last Taken Type cholecalciferol (vitamin D3) 250 250 mcg PO QWEEK REPLACEMENT 12/15/19 Unknown History mcg (10,000 unit) capsule cyanocobalamin (vitamin B-12) 1,000 mcg PO DAILY 12/15/19 Unknown History 1,000 mcg capsule Held on 12/21/24. Instructions: ON HOLD 12/21/2024 tizanidine 4 mg tablet 0 - 12 mg PO QHS 02/14/24 Unknown History ondansetron 4 mg disintegrating 4 mg PO Q8H PRN PRN Nausea #10 tabs 10/10/24 Unknown Rx tablet bupropion HCl 300 mg 24 hr tablet, 300 mg PO QAM 11/29/24 Unknown History extended release (Wellbutrin XL) sodium sul 1.479 gram-potas ch See Rx Instructions PO .COMPLEX 11/29/24 Unknown Rx 0.188 gram-magnes sul 0.225 gram #28 tabs tablet (Sutab) magnesium 200 mg tablet 200 mg PO QHS 12/21/24 Unknown History olmesartan 40 mg tablet (Benicar) 40 mg PO DAILY 12/21/24 Unknown History Allergy/AdvReac Type Severity Reaction Status Date / Time clarithromycin (From Biaxin) Allergy Mild other Verified 12/21/24 14:45 erythromycin base (From Allergy Mild other Verified 12/21/24 14:45 Erythrocin) Family History Mother Bladder cancer Aunt Cancer appendix Father Cancer stomach Suicide Grandmother Cancer abdom. 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 Pertinent Findings Echo (EF%) pertinent findings: 04/2021: EF 71%, normal study Additional pertinent findings: Holter: 03/2021 - normal study, SR Recommendation Anesthesia Recommendation Anesthesia recommendation: OPTIMIZED for anesthesia
[2024-12-23] VITALS (10 sets, daily range): BP systolic 94–127; BP diastolic 60–79; PULSE 52–77; RESP 16; TEMP 36.1–36.5; O2SAT 97–100; BMI 25.8
--- OUTSIDE RECORDS SUMMARY | 2024-12-23 06:34 | XMS RPT_ITS | CCD ---
Author Organization [facility] Care Team Providers Care Grant Coordinator Name Role Phone Galilea Whitaker Unavailable Unavailable Unavailable Unavailable GALILEA WHITAKER Unavailable Unavailable HASAN, JACKSON Unavailable Unavailable HASAN JACKSON Unavailable Unavailable HASSARAH JACKSON Unavailable Unavailable GALILEA WHITAKER Unavailable Unavailable Galilea Whitaker Primary Care Pro vider Unavailable Galilea Whitaker Primary Care Pro vider Radha Mejias Unavailable Aminata Caputo Unavailable Chery Saez Unavailable Galilea Whitaker Unavailable Galilea Whitaker Unavailable Galilea Whitaker CNP Primary Care Provider Radha Mejias DO Unavailable Aminata Caputo MD Unavailable Galilea Whitaker CNP Unavailable Unavailable Primary Care Provider Unavailabl e Radha Mejias DO Unavailable [phone] Aminata Caputo MD Unavailable Galilea Whitaker CNP Unavailable Galilea Whitaker CNPe King Primary Care Provider GALILEA WHITAKER Referring Unavailable GALILEA WHITAKER Attending Unavailable SHERMAN, GALILEA KING Primary Care Unavailable CHARISSA Mclain Attending Provider Dr. Yaa Chase Attending Provider [phone] [phone] Primary Care Provider UnavailCHARISSA Nguyen Attending Provider Dr. Yaa Chase Attending Provider GALILEA WHITAKER Primary Care Provider Unavail able Unavailable Primary Care Provider Unavailabl e Radha Mejias DO Unavailable Aminata Caputo MD Unavailable Sherman CASEWORKER, Galilea King Unavailable Sherman CASEWORKER, Galilea King Primary Care Provider Sherman CASEWORKER, Galilea Matos Unavailable Sherman CASEWORKER, Galilea M Primary Care Provider Sherman CASEWORKER, Galilea King Primary Care Provider Dr. Yaa Chase Attending Provider [phone] GALILEA WHITAKER Primary Care Provider Unavail able GALILEA WHITAKER Referring Provider Unavailabl e Sherman LANZA, Galilea M Primary Care Provider Sherman CASEWORKER, Galilea King Unavailable Sherman CASEWORKER, Galilea King Unavailable Care Physician, No Primary Primary Care Provider Unavailable Care Physician, No Primary Referring Provider Un available Linda OWENS-C, Mable Attending Provider Dr. Yaa Chase MD Attending Provider [phone] Dr. Yaa Chase MD Referring Provider Dr. Bonnie Weber DO Emergency Provider ERICA WHITAKERINE Primary Care Provider Dr. Susy Carranza DO Admit Provider Dillon VAN, Dr. Jain Other Provider Casey DE, Dr. Ilya Torres Attending Provider Brannon DE, Dr. Aburto Other Provider Casey DE, Dr. Ilya Torres Other Provider Isa DE, Dr. Weeks Attending Provider Dillon VAN, Dr. Jain Referring Provider VANIA GUNTER Attending Provider [phone] VANIA GUNTER Referring Provider [phone] Sherman DIRECTOR FIELD SERVICES-CGalilea Primary Care Provider SYSTEM, PROVIDER NOT IN Referring Unavaila ble SYSTEM, PROVIDER NOT IN Attending Unavaila ble GALILEA WHITAKER Primary Care Unavailable GALILEA WHITAKER Primary Care Unavailable SAMEERA GONZALES Attending Unavailab SAMEERA Estevez Admitting Unavailab GALILEA Rizvi Primary Care Unavailable BELLA WANG Attending Unavailab GALILEA Rizvi Primary Care Unavailable BELLA WANG Attending Unavailab GALILAE Rizvi Primary Care Unavailable Galilea Marcelo Primary Care Provider Galilea Marcelo Referring Provider Richard Pardo Attending Provider GALILEA WHITAKER Primary Care Unavailable CHECO SOTOMAYOR Referring Unavailable SELF Referring Unavailable YUNG FRANCIS Attending Unavailable GALILEA WHITAKER Primary Care Unavailable VANIA GUNTER Referring Unavailable GALILEA WHITAKER Primary Care Unavailable VANIA GUNTER Admitting Unavailable GALILEA WHITAKER Primary Care Unavailable GALILEA WHITAKER Attending Unavailable GALILEA WHITAKER Attending Unavailable GALILEA WHITAKER Primary Care Unavailable GALILEA WHITAKER Attending Unavailable GALILEA WHITAKER Primary Care Unavailable GALILEA WHITAKER Attending Unavailable GALILEA WHITAKER Primary Care Unavailable SHERMAN, GALILEA TERESA KING Primary Care Unavailable DONALD CUMMINS Attending Unavailable VANIA GUNTER Attending Unavailable SHERMAN, GALLIEA MOORE KING Primary Care Unavailable SHERMAN, GALILEA KING Attending Unavailable SHERMAN, GALILEA TERESA KING Primary Care Unavailable SAMEERA GONZALES Attending Unavailab le SHERMAN, GALILEA KING Primary Care Unavailable SAMEERA GONZALES Attending Unavailab le SHERMAN, GALILEA TERESA KING Primary Care Unavailable SHERMAN, GALILEA TERESA KING Primary Care Unavailable VANIA GUNTER Attending Unavailable SHERMAN, GALILEA KING Primary Care Unavailable GALILEA WHITAKER Attending Unavailable Sherman DIRECTOR FIELD SERVICES-C, Galilea Matos Primary Care Physician Sherman DIRECTOR FIELD SERVICES-CGalilea Referring Provider [phone] Cedric DIRECTOR FIELD SERVICES-CRichard Attending Physician Kumar DIRECTOR FIELD SERVICES-CPaola Attending Physician Kumar DIRECTOR FIELD SERVICES-CPaola Referring Provider Paola Heath Referring Unavailable Paola Heath Attending Unavailable Galilea Whitaker Primary Care Unavailable Yaa Chase Referring Unavailable Yaa Chase Attending Unavailable Care Physician, No Primary Primary Care Unava ilable AUBREY CARRANZA Referring Unavailable AUBREY CARRANZA Attending Unavailable Galilea Whitaker Primary Care Unavailable Susy Carranza Admitting Unavailable AUBREY CARRANZA Primary Care Unavailable Ilya Peña Attending Unavailable Susy Carranza Consulting Unavailable Tanphaichibarb, Natthhelgat Consulting Unavaila Conrad Moore Attending Unavailable Galilea Whitaker Primary Care Unavailable Galilea Whitaker Referring Unavailable AUBREY CARRANZA Primary Care Unavailable Susy Carranza Admitting Unavailable Susy Carranza Attending Unavailable Susy Carranza Consulting Unavailable Ilya Peña Attending Unavailable Tanphaichitr, Natthavat Consulting Unavaila ble Ilya Peña Consulting Unavailable Richard Steele NP Attending Unavailable Galilea Whitaker Primary Care Unavailable Galilea Whitaker Referring Unavailable Paola Heath Attending Unavailable Galilea Whitaker Primary Care Unavailable Galilea Whitaker Referring Unavailable Mable Mckeon NP Attending Unavailable Care Physician, No Primary Referring Unava ilable Care Physician, No Primary Primary Care Unava ilable Lizbeth Guzman Attending Unavailable Care Physician, No Primary Referring Unava ilable Care Physician, No Primary Primary Care Unava ilable Micky Moss Attending Unavailable Susy Carranza Referring Unavailable Paola Heath Referring Unavailable Paola Heath Attending Unavailable Galilea Whitaker Primary Care Unavailable Allergies Allergy Classification Reported Allergen(s) Allergy Type Date of Onset Reaction(s) Facility (20 sources) amoxicillin; Translations: [AMOXICILLIN] Propensity to adverse reactions to drug 04-05-[address] [facility] Work Phone: (20 sources) apple extract; Translations: [APPLE] Propensity to adverse reactions to drug 01-15-[address] [facility] Work Phone: (20 sources) black pepper preparation; Translations: [BLACK PEPPER] Propensity to adverse reactions to drug 01-15-20 16 Swelling, Rash [facility] Work Phone: (20 sources) cephalexin; Translations: [CEPHALEXIN] Propensity to adverse reactions to drug 07-18-[address] [facility] Work Phone: (20 sources) clarithromycin; Translations: [CLARITHROMYCIN] Propensity to adverse reactions to drug 07-18-19 10 Rash, Other: See Comments [facility] Work Phone: (20 sources) erythromycin; Translations: [ERYTHROMYCIN] Propensity to adverse reactions to drug 07-18-19 10 GI Intolerance, Diarrhea, GI Upset, Hives, Other: See Comments, Vomiting [facility] Work Phone: (20 sources) garlic preparation; Translations: [GARLIC] Propensity to adverse reactions to drug 01-15-20 16 Swelling, Rash [facility] Work Phone: (20 sources) Penicillins; Translations: [PENICILLINS] Propensity to adverse reactions to drug 04-05-19 15 [facility] Work Phone: (20 sources) pork allergenic extract; Translations: [PORK DERIVED (PORCINE)] Propensity to adverse reactions to drug 01-15-[address] [facility] Work Phone: (20 sources) INFLUENZA VIRUS VACCINES; Translations: [INFLUENZA VIRUS VACCINES] Propensity to adverse reactions to drug 04-05-[address] [facility] Work Phone: (20 sources) MAPLE FLAVOR; Translations: [MAPLE FLAVOR] Propensity to adverse reactions to drug 01-15-[address] [facility] Work Phone: (3 sources) Penicillins Propensity to adverse reactions to drug 04-05-[address] [facility] (3 sources) Influenza Virus Vaccines Propensity to adverse reactions to drug 04-05-19 [address] [facility] Work Phone: (10 sources) Penicillins Propensity to adverse reactions to drug 04-05-[address] [facility] (20 sources) Influenza Virus Vaccines Propensity to adverse reactions to drug 04-05-19 [address] [facility] (10 sources) Penicillins Propensity to adverse reactions to drug 04-05-[address] [facility] (1 source) Clarithromycin Drug Allergy 12-22-19 [facility] (1 source) Erythromycin Drug Allergy 12-22-19 [facility] Medications Current Medications Medication Drug Class(es) Dates Sig (Normalized) Sig (Original) 24 hr buPROPion hydrochloride 300 mg extended release oral tablet (20 sources) Aminoketone Start: 11-29-2024 take 1 tablet by mouth once daily in the morning Start: 01-23-2023 End: 01-27-2024 take 1 tablet by mouth once daily Bupropion Hcl (Wellbutrin Sr) 150 mg tablet sustained-release 12 hr Discontinued 150 mg PO DAILY January 23, 2023 12:00am January 27, 2024 8:39am Start: 01-23-2023 End: 01-27-2024 take 1 tablet by mouth once daily in the morning Bupropion Hcl (Wellbutrin Xl) 300 mg tablet extended release 24 hr Discontinued 300 mg PO EVERY MORNING January 23, 2023 12:00am January 27, 2024 8:39am Start: 05-14-2022 End: 04-05-2024 take 3 tablets by mouth once daily in the morning buPROPion (WELLBUTRIN XL) 150 MG 24 hr tablet Take 3 (three) tablets (450 mg total) by mouth daily IN THE MORNING . 05/14/2022 04/05/2024 Discontinued (Patient's Request) Start: 05-14-2022 take 2 tablets by mo uth once daily in the morning buPROPion (WELLBUTRIN XL) 150 MG 24 hr tablet Take 2 (two) tablets (300 mg total) by mouth daily IN THE MORNING . 0 05/14/2022 Active Start: 05-14-2022 take 1 tablet by chacho th once daily in the morning buPROPion (WELLBUTRIN XL) 150 MG 24 hr tablet Take 1 (one) tablet (150 mg total) by mouth daily IN THE MORNING . 0 05/14/2022 Active Start: 05-15-2017 End: 10-14-2017 take 1 tablet by mouth once daily buPROPion (WELLBUTRIN XL) 150 MG 24 hr tablet Take 1 (one) tablet (150 mg total) by mouth daily. 30 tablet 11 05/15/2017 10/14/2017 Discontinued Start: 04-09-2016 End: 04-10-2017 take 1 tablet by mouth once daily buPROPion (WELLBUTRIN XL) 150 MG 24 hr tablet Indications: Recurrent major depressive disorder, in partial remission (HCC) Take 1 tablet (150 mg total) by mouth daily. 90 tablet 3 04/09/2016 04/10/2017 Discontinued take 450 mg by mouth once daily bupropion HCl (WELLBUTRIN ORAL) Take 450 mg by mouth once daily. Active Comment on above: Take 450 mg by mouth once daily. cholecalciferol 0.25 mg oral capsule (20 sources) Vitamin D Start: 12-15-2019 take 1 capsule by mouth every week cholecalciferol, vitamin D3, 5,000 unit Tab tablet Take by mouth daily . Active cholecalciferol, vitamin D3, (VITAMIN D3 ORAL) (14 sources) cholecalciferol, vitamin D3, (VITAMIN D3 ORAL) Take by mouth once daily. Active cholecalciferol, vitamin D3, (VITAMIN D3 ORAL) Take by mouth once daily. 0 Active Comment on above: Take by mouth once d aily. 24 hr dilTIAZem hydrochloride 120 mg extended release oral capsule (1 source) Calcium Channel Baljinder Start: 02-06-20 16 End: 02-06-20 17 take 1 capsule by mouth once daily diltiazem (CARDIZEM CD) 120 MG 24 hr capsule Indications: PVC (premature ventricular contraction) Take 1 capsule (120 mg total) by mouth daily. 30 capsule 11 02/06/2016 02/05/2017 Active epinastine hydrochloride 0.5 mg/ml ophthalmic solution (5 sources) Histamine-1 Receptor Inhibitor, Adrenergic Receptor Agonist Start: 11-19-19 End: 11-19-19 21 take 1 drop(s) into the eye(s) twice daily epinastine 0.05 % ophthalmic solution Indications: Environmental and seasonal allergies Administer 1 drop to both eyes 2 (two) times a day . 10 mL 5 11/19/2019 11/18/2020 Active estradiol 0.1 mg/ml vaginal cream (14 sources) Estrogen Start: 01-27-20 estradioL (ESTRACE) 0.01 % (0.1 mg/gram) vaginal cream APPLY SMALL AMOUNT DIRECTED VAGINALLY EVERY OTHER DAY X 4 WEEKS THEN TWICE A WEEK 01/27/2024 Active Start: 01-27-2024 End: 11-29-2024 Estradiol 0.01 % (0.1 mg/gra m) cream Discontinued 0 VAGINAL .COMPLEX 42.5 2 January 27, 2024 12:00am November 29, 2024 7:40am small amount as directed vaginal every other day X 4 weeks then twice a week; magnesium hydroxide 400 mg chewable tablet (10 sources) magnesium hydrox andrew 400 mg (170 mg magnesium) Chew as directed Orally Active meclizine hydrochloride 25 mg oral tablet (20 sources) Antiemetic Start: 06-15-2018 End: 05-21-2022 take 1 tablet by mouth three times daily as needed meclizine (ANTIVERT) 25 mg tablet Indications: Vertigo Take 1 (one) tablet (25 mg total) by mouth 3 (three) times a day as needed . 30 tablet 2 05/21/2022 Active Start: 12-30-2014 take 0.5-1 tablets b y mouth three times daily as needed meclizine (ANTIVERT) 25 mg tablet Take 0.5-1 tablets (12.5-25 mg total) by mouth 3 (three) times a day as needed 30 tablet 0 12/30/2014 Active 24 hr metoprolol succinate 25 mg extended release oral tablet (1 source) beta-Adrenergic Baljinder Start: 02-14-2016 End: 02-13-2017 take 1 tablet by mouth once daily metoprolol succinate (TOPROL XL) 25 MG 24 hr tablet Indications: PVC (premature ventricular contraction) Take 1 tablet (25 mg total) by mouth daily. 30 tablet 11 02/14/2016 02/13/2017 Active naproxen 500 mg delayed release oral tablet (1 source) Nonsteroidal Anti-inflammatory Drug Start: 07-30-2018 End: 08-29-2018 take 1 tablet by mouth twice daily at mealtime naproxen (EC NAPROSYN) 500 MG EC tablet Take 1 (one) tablet (500 mg total) by mouth 2 (two) times a day with meals . 20 tablet 0 07/30/2018 08/29/2018 Active olmesartan medoxomil 40 mg oral tablet (20 sources) Angiotensin 2 Receptor Baljinder Start: 05-15-2020 End: 05-27-2023 take 1 tablet by mouth once daily olmesartan (BENICAR) 40 MG tablet Indications: Essential hypertension Take 1 (one) tablet (40 mg total) by mouth daily . 90 tablet 1 05/27/2023 Active Start: 12-15-2019 take 1 tablet by chacho th once daily Start: 05-28-2019 End: 05-12-2020 take 1 tablet by mouth once daily olmesartan (BENICAR) 40 MG tablet Indications: Essential hypertension Take 1 (one) tablet (40 mg total) by mouth daily . 90 tablet 1 10/15/2019 05/12/2020 Discontinued (Reorder) Start: 11-10-2017 End: 11-10-2018 take 1 tablet by mouth once daily olmesartan (BENICAR) 40 MG tablet Indications: Essential hypertension Take 1 (one) tablet (40 mg total) by mouth daily . 90 tablet 1 10/01/2018 Active Start: 10-14-2017 End: 10-14-2018 take 1 tablet by mouth once daily olmesartan (BENICAR) 20 MG tablet Indications: Essential hypertension Take 1 (one) tablet (20 mg total) by mouth daily. 90 tablet 0 10/14/2017 10/14/2018 Active Comment on above: Take 40 mg by mouth once daily. ondansetron 4 mg disintegrating oral tablet (10 sources) Serotonin-3 Receptor Antagonist Start: 04-20-2023 End: 10-10-2024 take 1 tablet by mouth every eight hours as needed for nausea Start: 07-30-2018 End: 11-26-2018 take 1 tablet by mouth every eight hours as needed ondansetron (ZOFRAN) 4 MG tablet Take 1 (one) tablet (4 mg total) by mouth every 8 (eight) hours as needed for nausea . 20 tablet 0 07/30/2018 11/26/2018 Discontinued perflutren lipid microspheres 1.3 mL in NaCl (PF) 0.9% 10 mL injection (DEFINITY) (10 sources) Start: 04-09-2021 End: 07-09-2022 perflutren lipid microspheres 1.3 mL in NaCl (PF) 0.9% 10 mL injection (DEFINITY) polyethylene glycol 3350 83635 mg powder for oral solution (20 sources) Osmotic Laxative Start: 02-18-2017 End: 10-15-2019 polyethylene glycol (GLYCOLAX) 17 gram/dose powder Indications: Chronic idiopathic constipation Take 17 (seventeen) g by mouth daily . 1530 g 3 10/15/2019 Active Start: 04-09-2016 polyethylene g lycol (MIRALAX) 17 gram powder Indications: Chronic idiopathic constipation Take 17 g by mouth daily. 255 g 11 04/09/2016 Active ramelteon 8 mg oral tablet (2 sources) Melatonin Receptor Agonist Start: 11-04-2023 End: 01-23-2024 take 1 tablet by mouth once daily as needed ramelteon (ROZEREM) 8 mg tablet Take 1 (one) tablet (8 mg total) by mouth nightly as needed . 11/04/2023 01/23/2024 Discontinued (Patient's Request) Sod Sulf-Pot Chloride-Mag Sulf (1 source) Start: 11-29-2024 sod sulf-pot chloride-mag sulf (Sutab) 1.479-0.188- 0.225 gram Tab (1 source) Start: 09-26-2022 sod sulf-pot chloride-mag sulf (Sutab) 1.479-0.188- 0.225 gram Tab Take 1 kit by mouth See Admin Instructions Use split dose instructions . 24 tablet 0 09/26/2022 Active 125 ml sodium chloride 9 mg/ml prefilled syringe (10 sources) Start: 04-09-2021 End: 07-09-2022 sodium chloride 0.9 % (flush) 10 mL (BD POSIFLUSH) sulfamethoxazole 400 mg / trimethoprim 80 mg oral tablet (1 source) Dihydrofolate Reductase Inhibitor Antibacterial, Sulfonamide Antimicrobial Start: 07-02-2024 End: 07-09-2024 take 1 tablet by mouth twice daily sulfamethoxazole- trimethoprim (Bactrim) 400-80 mg per tablet Take 1 (one) tablet by mouth 2 (two) times a day for 7 days . 14 tablet 07/02/2024 11:43 AM EDT 07/02/2024 07/09/2024 Active tiZANidine 4 mg oral tablet (20 sources) Central alpha-2 Adrenergic Agonist Start: 02-14-2024 Start: 12-15-2019 End: 02-14-2024 take 1 capsule by mouth at bedtime Tizanidine 6 mg capsule Discontinued 6 mg PO AT BEDTIME December 15, 2019 12:00am February 14, 2024 3:53am Start: 05-08-2018 End: 01-23-2024 take 3 tablets by mouth at bedtime tiZANidine (Zanaflex) 4 MG tablet Indications: Chronic migraine without aura without status migrainosus, not intractable Take up to 3 (three) tablets (12 mg total) by mouth at bedtime. 270 tablet 1 01/23/2024 Active Start: 08-20-2017 take 3 tablets by mo uth at bedtime tiZANidine (ZANAFLEX) 4 MG tablet Indications: Chronic migraine without aura without status migrainosus, not intractable Take up to 3 (three) tablets (12 mg total) by mouth at bedtime. 270 tablet 3 08/20/2017 Active Start: 02-18-2017 tiZANidine (ZA NAFLEX) 4 MG tablet Indications: Chronic migraine without aura without status migrainosus, not intractable Take up to 3 (three) tablets (12 mg total) by mouth at bedtime. 270 tablet 3 02/18/2017 Active Start: 04-09-2016 End: 10-08-2016 tiZANidine (ZANAFLEX) 4 MG t ablet Indications: Chronic migraine without aura without status migrainosus, not intractable Take up to 3 at bedtime. 270 tablet 3 10/08/2016 Active Comment on above: Take 12 mg by mouth. topiramate 25 mg oral tablet (15 sources) Anti-epileptic Agent Start: 05-08-2018 topiramate (TOPAMAX) 25 MG tablet Indications: Chronic migraine without aura without status migrainosus, not intractable Take up to 4 tablets in the evening for headaches . 480 tablet 3 05/08/2018 Active Start: 04-09-2016 topiramate (TO PAMAX) 25 MG tablet Indications: Chronic migraine without aura without status migrainosus, not intractable Take up to 4 tablets in the evening for headaches. 480 tablet 3 04/09/2016 Active valACYclovir 1000 mg oral tablet (14 sources) Herpesvirus Nucleoside Analog DNA Polymerase Inhibitor, Herpes Simplex Virus Nucleoside Analog DNA Polymerase Inhibitor, Herpes Zoster Virus Nucleoside Analog DNA Polymerase Inhibitor Start: 10-07-2024 take 2 tablets by mouth twice daily valACYclovir (VALTREX) 1000 MG tablet TAKE 2 TABLETS (2,000 MG TOTAL) BY MOUTH TWICE A DAY FOR 1 DAY 10/07/2024 Active Start: 02-12-2024 End: 09-01-2024 take 2 tablets by mouth twice daily valACYclovir (VALTREX) 1000 MG tablet Indications: Herpes labialis Take 2 (two) tablets (2,000 mg total) by mouth 2 (two) times a day for 1 day . 4 tablet 3 08/31/2024 09/01/2024 Active Start: 02-18-2023 End: 02-19-2023 take 2 tablets by mouth twice daily valACYclovir (VALTREX) 1000 MG tablet Indications: Herpes labialis Take 2 (two) tablets (2,000 mg total) by mouth 2 (two) times a day for 1 day . 4 tablet 3 02/18/2023 02/18/2023 Discontinued (Reorder (Suppress CancelRx Message to Pharmacy)) vitamin b12 1 mg oral capsule (20 sources) Vitamin B12 Start: 12-15-2019 take 1 capsule by mo ut once daily Start: 10-08-2018 End: 10-03-2019 cyanocobalamin (B-12) inject ion 1,000 mcg take 5 tablets by mo ut once daily cyanocobalamin (B-12) 1000 MCG tablet Take 5 (five) tablets (5,000 mcg total) by mouth daily . Active Cyanocobalamin ( VITAMIN B-12) 250 mcg tab Take by mouth. Active Comment on above: Take by mouth. Completed/Discontinued Medications Medication Drug Class(es) Dates Sig (Normalized) Sig (Original) acetaminophen 325 mg / HYDROcodone bitartrate 5 mg oral tablet (8 sources) Opioid Agonist Start: 01-08-2020 End: 04-14-2020 Hydrocodone-Acetami nophen 1 TABLET tablet Discontinued 1 {tbl} PO EVERY 6 HOURS NEEDED as needed for Pain 10 3 0 January 08, 2020 January 10, 2020 12:00am January 11, 2020 12:02am Acute myofascial strain of lumbosacral region Strain of muscle, fascia and tendon of lower back, initial encounter Start: 01-08-2020 End: 01-11-2020 take 1 tablet by mouth every six hours as needed Hydrocodone-Acetaminophen Discontinued 1 TABLET PO EVERY 6 HOURS NEEDED 10 January 08, 2020 January 11, 2020 1:02am [id number] 200 actuat albuterol 0.09 mg/actuat metered dose inhaler (20 sources) beta2-Adrenergic Agonist Start: 06-28-2022 End: 04-05-2024 take 2 puff(s) by inhalation every six hours as needed for wheezing albuterol (Ventolin HFA) 90 mcg/actuation inhaler Indications: Wheezing Inhale 2 (two) puffs every 6 (six) hours as needed for wheezing . 18 g 1 06/28/2022 04/05/2024 Discontinued (Patient's Request) Start: 05-11-2019 take 2 puff(s) by in halation every six hours as needed for wheezing albuterol (Ventolin HFA) 90 mcg/actuation inhaler Indications: Wheezing Inhale 2 (two) puffs every 6 (six) hours as needed for wheezing . 1 Inhaler 1 05/11/2019 Active Start: 05-11-2019 End: 05-10-2020 take 2 puff(s) by inhalation every six hours as needed for wheezing albuterol (Ventolin HFA) 90 mcg/actuation inhaler Indications: Wheezing Inhale 2 (two) puffs every 6 (six) hours as needed for wheezing . 1 Inhaler 1 05/11/2019 Active amoxicillin 875 mg / clavulanate 125 mg oral tablet (8 sources) Penicillin-class Antibacterial Start: 10-10-2024 End: 10-20-2024 Amoxicillin-Pot Clavulanate 875-125 mg tablet Discontinued 1 {tbl} PO Q12H 20 10 0 October 10, 2024 9:22am October 18, 2024 11:00pm October 19, 2024 11:07pm Acute sinusitis, unspecified Start: 11-16-2021 End: 11-26-2021 Amoxicillin-Pot Clavulanate 875-125 mg tablet Discontinued 1 {tbl} PO Q12H 20 10 0 November 15, 2021 11:00pm November 24, 2021 11:00pm November 25, 2021 11:03pm Acute sinusitis, unspecified Start: 11-16-2021 End: 11-26-2021 take 1 tablet by mouth every twelve hours Amoxicillin-Pot Clavulanate Discontinued 1 TABLET PO Q12H 20 November 16, 2021 12:00am November 26, 2021 12:03am azelastine hydrochloride 0.5 mg/ml ophthalmic solution (14 sources) Histamine-1 Receptor Antagonist Start: 03-05-2018 End: 04-14-2020 azelastine (OPTIVAR) 0.05 % ophthalmic solution azithromycin 250 mg oral tablet (6 sources) Macrolide Antimicrobial Start: 05-07-2019 End: 07-16-2019 azithromycin (ZITHROMAX) 250 MG tablet Indications: Acute non-recurrent frontal sinusitis Take 2 tabs x1 day, then 1 tab daily . 6 tablet 0 05/07/2019 07/16/2019 Discontinued (Therapy completed) Start: 07-16-2018 End: 10-01-2018 azithromycin (Z-CYRUS) 5 day d ose pack Indications: Left otitis media, unspecified otitis media type Take 2 tabs x 1 day, then 1 tab daily . 6 tablet 0 07/16/2018 10/01/2018 Discontinued Start: 07-16-2018 azithromycin ( Z-CYRUS) 5 day dose pack Indications: Left otitis media, unspecified otitis media type Take 2 tabs x 1 day, then 1 tab daily . 6 tablet 0 07/16/2018 Active Start: 05-31-2016 End: 10-08-2016 azithromycin (ZITHROMAX) 250 MG tablet Indications: Acute recurrent frontal sinusitis Take 2 tabs x 1 day, then 1 daily.. 6 tablet 0 05/31/2016 10/08/2016 Discontinued cetirizine hydrochloride 10 mg oral capsule (20 sources) Histamine-1 Receptor Antagonist Start: 11-16-2021 End: 10-10-2024 take 1 capsule by mouth once daily as needed Cetirizine (Zyrtec) 10 mg capsule Discontinued 10 mg PO DAILY as needed for allergic symptoms November 15, 2021 11:00pm October 10, 2024 8:43am Start: 06-04-2011 End: 12-20-2020 take 1 tablet by mouth once daily Cetirizine (Zyrtec) 10 mg tablet Discontinued 10 mg PO DAILY December 15, 2019 12:00am December 20, 2020 2:16pm cetirizine HCl ( ZYRTEC ORAL) Take by mouth as needed. Active cetirizine HCl ( ZYRTEC ORAL) Take by mouth once daily. Active cetirizine HCl ( ZYRTEC ORAL) Take by mouth once daily. 0 Active Comment on above: Take by mouth once d aily. ergocalciferol 18804 unt oral capsule (5 sources) Provitamin D2 Compound Start: 04-11-19 End: 03-16-19 19 take 1 capsule by mouth every week ergocalciferol (VITAMIN D2) 50,000 unit capsule Indications: Vitamin D deficiency Take 1 (one) capsule (50,000 Units total) by mouth once a week. 12 capsule 1 04/10/2017 03/16/2018 Discontinued escitalopram 10 mg oral tablet (3 sources) Serotonin Reuptake Inhibitor Start: 05-16-19 End: 10-15-19 18 take 1 tablet by mouth once daily escitalopram oxalate (LEXAPRO) 10 MG tablet Take 1 (one) tablet (10 mg total) by mouth daily. 30 tablet 11 05/15/2017 10/14/2017 Discontinued Start: 04-09-2016 End: 04-10-2017 take 1 tablet by mouth once daily escitalopram oxalate (LEXAPRO) 10 MG tablet Indications: Recurrent major depressive disorder, in partial remission (HCC) Take 1 tablet (10 mg total) by mouth daily. 90 tablet 3 04/09/2016 04/10/2017 Discontinued fexofenadine hydrochloride 180 mg oral tablet (20 sources) Histamine-1 Receptor Antagonist Start: 03-12-2013 End: 09-24-2022 take 1 tablet by mouth once daily Fexofenadine (Susana Allergy) 180 mg tablet Discontinued 180 mg PO DAILY December 15, 2019 12:00am November 16, 2021 5:13am fexofenadine HCl (SUSANA ORAL) Take by mouth as needed. 0 Active Comment on above: Take by mouth as nee ded. fluconazole 150 mg oral tablet (20 sources) Azole Antifungal Start: 07-08-2024 End: 11-29-2024 Fluconazole 150 mg tablet Discontinued 150 mg PO Every 3 Days 2 0 0 October 09, 2024 11:00pm November 29, 2024 7:40am may repeat second dose 72 hrs after first dose if symptoms persist Start: 06-14-2024 End: 06-14-2024 fluconazole (DIFLUCAN) 150 M G tablet Indications: Yeast infection Take 1 (one) tablet (150 mg total) by mouth once If no improvement after 3 days, take second tablet. for 1 dose . 2 tablet 06/14/2024 06/14/2024 Active Start: 03-28-2022 End: 01-23-2023 take 1 tablet by mouth once Fluconazole 150 mg tablet Discontinued 150 mg PO ONCE 1 0 March 28, 2022 12:00am January 23, 2023 9:52am as a single dose Start: 08-09-2021 End: 03-28-2022 Fluconazole 150 mg tablet Di scontinued 150 mg PO Every 3 Days 2 0 August 10, 2021 9:36am November 16, 2021 5:07am may repeat second dose 72 hrs after first dose if symptoms persist gabapentin 100 mg oral capsule (15 sources) Anti-epileptic Agent Start: 12-26-2021 End: 01-23-2023 take 1 capsule by mouth once daily Gabapentin 100 mg capsule Discontinued 100 mg PO DAILY December 28, 2021 12:00am January 23, 2023 9:52am Comment on above: Take (1) capsule by mouth at dinner and (2) capsules by mouth at bedtime Take (3) capsules by mouth one hour before bed. Start as directed. hydroCHLOROthiazide 12.5 mg oral capsule (6 sources) Thiazide Diuretic Start: 11-04-2016 End: 08-20-2018 take 1 capsule by mouth once daily hydroCHLOROthiazide (MICROZIDE) 12.5 mg capsule Indications: Essential hypertension Take 1 (one) capsule (12.5 mg total) by mouth daily. 90 capsule 3 08/20/2017 03/16/2018 Discontinued ivermectin 10 mg/ml topical cream (20 sources) Antiparasitic, Pediculicide Start: 11-16-2021 End: 02-14-2024 Ivermectin 1 % cream Discontinued 1 NMA TOPICAL DAILY November 15, 2021 11:00pm February 14, 2024 3:52am medroxyPROGESTERone acetate 10 mg oral tablet (13 sources) Progestin Start: 12-28-2021 End: 01-23-2023 take 1 tablet by mouth once daily Medroxyprogesterone (Provera) 10 mg tablet Discontinued 10 mg PO daily 10 December 28, 2021 12:00am January 23, 2023 9:52am Start: 09-26-2020 End: 12-20-2020 take 1 tablet by mouth once daily Medroxyprogesterone (Provera) 10 mg tablet Discontinued 10 mg PO DAILY 10 September 25, 2020 11:00pm December 20, 2020 2:16pm Nirmatrelvir-Ritonavir (6 sources) Start: 11-16-2021 End: 01-23-2023 Nirmatrelvir-Ritonavir (Paxl ovid (Eua)) 300 mg (150 mg x 2)-100 mg tablets,dose pack Discontinued 0 PO .COMPLEX 30 November 15, 2021 11:00pm January 23, 2023 9:52am take TWO 150 mg tablets of nirmatrelvir with ONE 100 mg tablet of ritonavir twice daily for 5 days PO Start: 11-16-2021 End: 01-23-2023 Nirmatrelvir-Ritonavir (Paxl ovid (Eua)) 300 mg (150 mg x 2)-100 mg tablets,dose pack Discontinued 0 PO .COMPLEX 30 November 16, 2021 12:00am January 23, 2023 10:52am take TWO 150 mg tablets of nirmatrelvir with ONE 100 mg tablet of ritonavir twice daily for 5 days PO Start: 11-16-2021 End: 01-23-2023 Nirmatrelvir-Ritonavir (Paxl ovid (Eua)) 300 mg (150 mg x 2)-100 mg tablets,dose pack Discontinued 0 PO .COMPLEX 30 November 16, 2021 12:00am January 23, 2023 10:52am take TWO 150 mg tablets of nirmatrelvir with ONE 100 mg tablet of ritonavir twice daily for 5 days PO Start: 11-16-2021 Nirmatrelvir-R itonavir (Paxlovid (Eua)) 300 mg (150 mg x 2)- 100 mg tablets,dose pack Active 0 PO .COMPLEX November 15, 2021 11:00pm take TWO 150 mg tablets of nirmatrelvir with ONE 100 mg tablet of ritonavir twice daily for 5 days PO nirmatrelvir-ritonavir (PAXLOVID) 300 mg (150 mg x 2)-100 mg tablet therapy pack (3 sources) Start: 11-16-2021 End: 09-24-2022 nirmatrelvir-ritonavir (PAXLOVID) 300 mg (150 mg x 2)-100 mg tablet therapy pack Take by mouth . 0 11/16/2021 09/24/2022 Discontinued (Therapy completed) Start: 11-16-2021 nirmatrelvir-r itonavir (PAXLOVID) 300 mg (150 mg x 2)-100 mg tablet therapy pack Take by mouth . 0 11/16/2021 Active omeprazole 40 mg delayed release oral capsule (8 sources) Proton Pump Inhibitor Start: 05-28-2019 End: 03-17-2021 take 1 capsule by mouth once daily omeprazole (PRILOSEC) 40 MG capsule Indications: Gastroesophageal reflux disease without esophagitis Take 1 (one) capsule (40 mg total) by mouth daily . 30 capsule 11 03/17/2020 11/14/2020 Discontinued (Therapy completed) oxymetazoline hydrochloride 10 mg/ml topical cream (18 sources) Start: 11-16-2021 End: 02-14-2024 Oxymetazoline (Rhofade) 1 % cream Discontinued 1 NMA TOPICAL DAILY as needed for rash January 23, 2023 9:52am February 14, 2024 3:54am pantoprazole 20 mg delayed release oral tablet (20 sources) Proton Pump Inhibitor Start: 01-30-2023 End: 10-10-2024 take 1 tablet by mouth once daily Pantoprazole 20 mg tablet,delayed release (DR/EC) Discontinued 20 mg PO DAILY February 14, 2024 12:00am October 10, 2024 8:43am Start: 01-23-2023 End: 02-14-2024 take 20 mg by mouth once daily Pantoprazole [address] for susp in packet Discontinued 20 mg PO DAILY January 23, 2023 12:00am February 14, 2024 1:16am Start: 01-23-2023 take 20 mg by mouth once daily Pantoprazole Active 20 MG PO DAILY January 23, 2023 1:00am Start: 11-05-2022 End: 02-03-2023 take 1 tablet by mouth once daily pantoprazole (PROTONIX) 40 MG tablet Take 1 (one) tablet (40 mg total) by mouth daily . 30 tablet 2 11/05/2022 02/03/2023 Active pantoprazole sod ium (PANTOPRAZOLE ORAL) Take by mouth. Active pantoprazole sod ium (PANTOPRAZOLE ORAL) Take by mouth. 0 Active Comment on above: Take by mouth. polyethylene glycol 3350 014046 mg / potassium chloride 2970 mg / sodium bicarbonate 6740 mg / sodium chloride 5860 mg / sodium sulfate 46653 mg powder for oral solution (1 source) Osmotic Laxative Start: 5 End: 5 Peg 3350-Electrolytes (Golytely) 236-22.74-6.74 -5.86 gram recon soln Discontinued 240 mL PO Q10M 4000 0 November 28, 2024 11:00pm November 29, 2024 8:21am until fecal effluent is clear predniSONE 20 mg oral tablet (8 sources) Start: 0 End: take 3 tablets by mouth once daily at mealtime Prednisone 20 MG tablet Discontinued 60 mg PO DAILY January 08, 2020 12:00am May 09, 2020 8:37am With food Start: 01-08-2020 End: 05-09-2020 take 60 mg by mouth once daily at mealtime Prednisone Discontinued 60 MG PO DAILY January 08, 2020 1:00am May 09, 2020 9:37am With food promethazine hydrochloride 25 mg oral tablet (1 source) Phenothiazine Start: 09-03-2016 End: 10-08-2016 take 1 tablet by mouth every six hours promethazine (PHENERGAN) 25 MG tablet Take 1 (one) tablet (25 mg total) by mouth every 6 (six) hours as needed for nausea. 12 tablet 0 09/03/2016 10/08/2016 Discontinued rizatriptan 10 mg oral tablet (2 sources) Serotonin-1b and Serotonin-1d Receptor Agonist Start: 10-10-2024 End: 11-29-2024 take 1 tablet by mouth every two hours Rizatriptan (Maxalt) 10 mg tablet Discontinued 0 PO .COMPLEX 6 0 October 09, 2024 11:00pm November 29, 2024 7:40am take 1 tab at onset of headache; if no relief may repeat 1 tab after at least 2 hrs; max = 3 tabs/24 hr PO spironolactone 50 mg oral tablet (8 sources) Aldosterone Antagonist Start: 10-21-2023 End: 10-10-2024 take 1 tablet by mouth once daily Spironolactone 50 mg tablet Discontinued 50 mg PO DAILY February 14, 2024 12:00am October 10, 2024 8:43am On Hold: Resume on 03/05/24. sucralfate 1000 mg oral tablet (4 sources) Aluminum Complex Start: 04-20-2023 End: 01-27-2024 take 1 tablet by mouth twice daily Sucralfate (Carafate) 1 gram tablet Discontinued 1 g PO TWICE A DAY 10 April 20, 2023 12:00am January 27, 2024 8:39am tranexamic acid 650 mg oral tablet (7 sources) Antifibrinolytic Agent Start: 12-20-2020 End: 08-06-2021 Tranexamic Acid (Lysteda) 650 mg tablet Discontinued 1300 mg PO THREE TIMES A DAY 30 5 December 20, 2020 12:00am August 06, 2021 12:19pm begin at onset of menstrual bleeding triamcinolone acetonide 0.001 mg/mg topical ointment (7 sources) Corticosteroid Start: 08-06-2021 End: 11-16-2021 Triamcinolone Acetonide 0.1 % ointment Discontinued 1 NMA TOPICAL TWICE A DAY 30 2 August 05, 2021 11:00pm November 16, 2021 5:17am urea 400 mg/ml topical cream (7 sources) Start: 07-13-2019 End: 11-14-2020 urea (CARMOL) 40 % Crea Indications: Skin fissures Apply 1 application topically 2 (two) times a day . 198 g 1 07/13/2019 11/14/2020 Discontinued (Therapy completed) valsartan 320 mg oral tablet (6 sources) Angiotensin 2 Receptor Baljinder Start: 05-13-2018 End: 05-13-2019 take 1 tablet by mouth once daily valsartan (DIOVAN) 320 MG tablet Indications: Essential hypertension Take 1 (one) tablet (320 mg total) by mouth daily . 30 tablet 3 05/13/2018 10/01/2018 Discontinued Start: 11-04-2016 End: 11-04-2017 take 1 tablet by mouth once daily valsartan (DIOVAN) 160 MG tablet Indications: Essential hypertension Take 1 (one) tablet (160 mg total) by mouth daily. 90 tablet 3 08/20/2017 10/14/2017 Discontinued Problems Active Problems Problem Classification Problem Date Documented Da te Episodic/Chronic Acute and unspecified renal failure (1 source) Unspecified kidney failure; Translations: [Renal failure, unspecified chronicity] Onset: 5 Chronic Allergic reactions (20 sources) Environmental allergy; Translations: [Food allergy] Onset: 5 10-24-2014 Episodic Comment on above: topical short term s teroids Cardiac dysrhythmias (20 sources) Ventricular premature beats; Translations: [Ventricular premature depolarization] Onset: 6 02-14-2016 Chronic Deficiency and other anemia (1 source) Anemia; Translations: [Anemia, unspecified] Episodic Diseases of mouth; excluding dental (1 source) Glossopyrosis ; Translations: [Burning tongue] Episodic Endometriosis (9 sources) Uterine adenomyosis; Translations: [Endometriosis of uterus] Chronic Comment on above: lysteda offered in p ast. provera PRN oligomenorrhea and dysmenorrhea Esophageal disorders (3 sources) Gastroesophageal reflux disease without esophagitis; Translations: [Eosinophilic esophagitis] Chronic Essential hypertension (20 sources) Essential hypertension; Translations: [Essential (primary) hypertension] Onset: 5 11-10-2014 Chronic Gastritis and duodenitis (5 sources) Chronic gastritis; Translations: [Unspecified chronic gastritis without bleeding] 11-19-2022 Chronic Headache, including migraine (20 sources) Migraine; Translations: [Migraine without aura, not refractory ] Onset: 2 10-24-2014 Chronic Malaise and fatigue (7 sources) Malaise and fatigue; Translations: [Fatigue] 11-19-2022 Episodic Menopausal disorders (4 sources) Atrophic vaginitis; Translations: [Postmenopausal atrophic vaginitis] 02-14-2024 Chronic Comment on above: estradiol cream Miscellaneous mental health disorders (17 sources) Sleep terror disorder; Translations: [Sleep terrors [night terrors]] Onset: 2 04-09-2021 Chronic Mood disorders (20 sources) Severe recurrent major depression without psychotic features; Translations: [Major depressive disorder, recurrent severe without psychotic features] Onset: 5 01-16-2015 Chronic Nausea and vomiting (9 sources) Vomiting; Translations: [Vomiting, unspecified] Onset: 5 04-20-2023 Episodic Nutritional deficiencies (20 sources) Vitamin D deficiency; Translations: [Vitamin D deficiency, unspecified] Onset: 5 10-24-2014 Chronic Open wounds of head; neck; and trunk (5 sources) Facial laceration ; Translations: [Laceration without foreign body of other part of head, initial encounter] 04-07-2022 Episodic Osteoarthritis (1 source) Arthritis of knee; Translations: [Patellofemoral arthritis of right knee] Chronic Other aftercare (1 source) Other salvage determiner (current) drug therapy; Translations: [On angiotensin receptor blockers (ARB)] Onset: 5 Episodic Other connective tissue disease (6 sources) Hematoma; Translations: [Other injury of unspecified body region, initial encounter] 04-07-2022 Episodic Other connective tissue disease (1 source) Synovial cyst of popliteal space [Orta], right knee; Translations: [Orta's cyst of knee, right] Episodic Other connective tissue disease (2 sources) Ganglion cyst; Translations: [Ganglion, unspecified site] 04-06-2024 Episodic Other ear and sense organ disorders (20 sources) Bilateral hearing loss; Translations: [Unspecified hearing loss, bilateral] Onset: 9 10-01-2018 Chronic Other female genital disorders (1 source) Abnormal uterine bleeding; Translations: [Other specified abnormal uterine and vaginal bleeding] Chronic Other gastrointestinal disorders (20 sources) Constipation; Translations: [Constipation, unspecified] Onset: 6 02-06-2016 Episodic Other gastrointestinal disorders (2 sources) Chronic idiopathic constipation; Translations: [Chronic idiopathic constipation] Episodic Other gastrointestinal disorders (2 sources) Chronic constipation; Translations: [Other constipation] 11-21-2023 Episodic Other gastrointestinal disorders (1 source) Abdominal bloating; Translations: [Abdominal distension (gaseous)] 11-05-2024 Episodic Other gastrointestinal disorders (2 sources) Other constipation; Translations: [Other constipation] Onset: 5 Episodic Other gastrointestinal disorders (2 sources) Abdominal distension (gaseous); Translations: [Abdominal distension (gaseous)] Onset: 5 Episodic Other gastrointestinal disorders (1 source) Constipation, unspecified; Translations: [Constipation, unspecified] Onset: 5 Episodic Other hematologic conditions (1 source) Macrocytosis; Translations: [Macrocytosis] Episodic Other hereditary and degenerative nervous system conditions (1 source) Restless legs; Translations: [Restless legs syndrome] Chronic Other injuries and conditions due to external causes (2 sources) Unspecified injury of right forearm, initial encounter; Translations: [Unspecified injury of right forearm, initial encounter] Onset: 8 Episodic Other injuries and conditions due to external causes (5 sources) Injury of head; Translations: [Unspecified injury of head, initial encounter] 04-07-2022 Episodic Other lower respiratory disease (2 sources) Cough; Translations: [Cough] Episodic Other non-traumatic joint disorders (1 source) Hypermobility syndrome; Translations: [Other specific joint derangements of unspecified joint, not elsewhere classified] 11-19-2022 Chronic Other non-traumatic joint disorders (1 source) Knee pain Episodic Other non-traumatic joint disorders (1 source) Hip pain; Translations: [Pain in left hip] Episodic Other non-traumatic joint disorders (1 source) Joint pain; Translations: [Pain in unspecified joint] 11-19-2022 Episodic Other non-traumatic joint disorders (1 source) Other specified joint disorders, left hand; Translations: [Other specified disorders of joint, hand] 11-21-2023 Episodic Other non-traumatic joint disorders (1 source) Chronic pain of left upper limb; Translations: [Pain in left shoulder] 04-01-2024 Episodic Other non-traumatic joint disorders (1 source) Pain in right hip joint; Translations: [Right hip pain] Other nutritional; endocrine; and metabolic disorders (2 sources) Weight loss; Translations: [Weight loss] Episodic Other nutritional; endocrine; and metabolic disorders (1 source) Weight increased; Translations: [Abnormal weight gain] 11-05-2024 Episodic Other nutritional; endocrine; and metabolic disorders (2 sources) Abnormal weight gain; Translations: [Abnormal weight gain] Onset: Episodic Other skin disorders (1 source) Fissure in skin; Translations: [Skin fissures] Episodic Other skin disorders (4 sources) Loss of hair; Translations: [Nonscarring hair loss, unspecified] Episodic Comment on above: resolved/saw derm Other upper respiratory infections (4 sources) Maxillary sinusitis; Translations: [Chronic maxillary sinusitis] 10-10-2024 Chronic Other upper respiratory infections (20 sources) Acute pharyngitis; Translations: [Acute pharyngitis, unspecified] Onset: Episodic Otitis media and related conditions (1 [...] [Family history of GI tract cancer] Episodic Residual codes; unclassified (3 sources) Flushing; Translations: [Flushing] 02-14-2024 Episodic Comment on above: improved Residual codes; unclassified (4 sources) Family history of breast cancer; Translations: [Family history of malignant neoplasm of breast] 02-14-2024 Episodic Comment on above: aunt Residual codes; unclassified (4 sources) Family history of malignant neoplasm of urinary bladder; Translations: [Family history of malignant neoplasm of bladder] 02-14-2024 Episodic Comment on above: mother Residual codes; unclassified (4 sources) Family history of cancer of colon; Translations: [Family history of malignant neoplasm of digestive organs] 02-14-2024 Episodic Comment on above: empower genetic scre en: Spondylosis; intervertebral disc disorders; other back problems (4 sources) Cervical spondylosis without myelopathy; Translations: [Spondylosis without myelopathy or radiculopathy, cervical region] Onset: 04-01-2024 Chronic Sprains and strains (14 sources) Strain of biceps brachii muscle; Translations: [Strain of muscle, fascia and tendon of other parts of biceps, left arm, initial encounter] 06-15-2020 Episodic Unclassified (2 sources) Other injury of unspecified body region, initial encounter; Translations: [Other injury of unspecified body region, initial encounter] Onset: Unclassified (4 sources) Patient encounter status; Translations: [Encounter for preadmission testing] Unclassified (2 sources) Chronic pain of left upper limb 04-01-2024 Viral infection (10 sources) Disease caused by 2019-nCoV; Translations: [COVID-19] Episodic Past or Other Problems Problem Classification Problem Date Documented Date Episodic/Chronic Abdominal pain (20 sources) Generalized abdominal pain; Translations: [Pain in pelvis] Onset: 02-17-2024 Episodic Comment on above: us ordered Acute and unspecified renal failure (20 sources) Acute renal failure syndrome; Translations: [Acute kidney failure, unspecified] Onset: 02-17-2024 02-17-2024 Episodic Cardiac dysrhythmias (17 sources) Palpitations; Translations: [Palpitations] Onset: 04-09-2021 04-09-2021 Episodic Conditions associated with dizziness or vertigo (20 sources) Vertigo; Translations: [Dizziness and giddiness] Onset: 10-01-2018 10-01-2018 Episodic Genitourinary symptoms and ill-defined conditions (9 sources) Increased frequency of urination; Translations: [Frequency of micturition] Onset: 02-17-2024 04-05-2024 Episodic Headache; including migraine (2 sources) Other headache syndrome; Translations: [Other headache syndrome] Onset: 02-21-2024 Episodic Mood disorders (20 sources) Mood disorders Onset: 11-21-2023 11-21-2023 Mycoses (4 sources) Mycosis; Translations: [Candidiasis, unspecified] Onset: 07-07-2024 06-14-2024 Episodic Nonspecific chest pain (20 sources) Atypical chest pain; Translations: [Other chest pain] Onset: 01-15-2016 01-16-2016 Episodic Nutritional deficiencies (10 sources) Cobalamin deficiency; Translations: [Deficiency of other specified B group vitamins] Onset: 05-21-2024 Episodic Other connective tissue disease (4 sources) Hypermobility syndrome; Translations: [Hypermobility syndrome] Onset: 01-14-2023 01-14-2023 Episodic Other connective tissue disease (1 source) Ganglion, unspecified site; Translations: [Ganglion, unspecified site] Onset: 05-18-2024 Episodic Other ear and sense organ disorders (20 sources) Bilateral tinnitus; Translations: [Tinnitus, bilateral] Onset: 10-01-2018 10-01-2018 Episodic Other non-traumatic joint disorders (4 sources) Multiple joint pain; Translations: [Pain in unspecified joint] Onset: 01-14-2023 01-14-2023 Episodic Other screening for suspected conditions (not mental disorders or infectious disease) (2 sources) Encounter for screening mammogram for malignant neoplasm of breast; Translations: [Encounter for screening for nutritional disorder] Onset: 01-27-2024 Episodic Other skin disorders (12 sources) Epidermoid cyst of hand; Translations: [Epidermal cyst] Onset: 06-10-2024 06-04-2024 Episodic Other skin disorders (4 sources) Epidermal cyst; Translations: [Epidermal cyst] Onset: 06-10-2024 Episodic Residual codes; unclassified (2 sources) Pain, unspecified; Translations: [Pain, unspecified] Onset: 04-05-2024 Episodic Residual codes; unclassified (2 sources) Pain Onset: 04-05-2024 Episodic Unclassified (1 source) High frequency hearing loss of both ears Unclassified (2 sources) Forearm injury, right, initial encounter Results Test Name Value Interpretation Reference Range Facility Abdomen Single Viewon 2024 Abdomen Single View [facility] [address] [place] [address] Abdomen Single View MR#: [id number] Acct: [id number] Name: TERESA CASH Rep #: [id number] : 1975 F 49 From: Chase Arredondo MD PCP: LAMAR Scales Status: REG CLI Study: Abdomen Single View Date of Exam: 12/09/24 Exam# [id number] Ordering Dr: Paola Heath PROCEDURE: ABDOMEN SINGLE VIEW 12/09/2024 REASON FOR EXAM: SITZ MARKER DAY 5 TECHNIQUE: Procedure Code: RADABD Modality: DX Procedure: ABDOMEN SINGLE VIEW COMPARISON: December 07, 2024 FINDINGS: There is a nonobstructive bowel-gas pattern. There is a moderate amount of ascending colon stool. Sitz markers are no longer present. No pathologic calcifications. Mild levoconvex curvature of the lumbar spine. No acute bony abnormality. RAD/Abdomen Single View IMPRESSION: No Sitz markers identified. Reading Location: [facility] CC: DIRECTOR FIELD SERVICESKacey Whitaker; DCIKC Paola Heath Lead Technician: Signed Normal [facility] Abdomen Single Viewon 2024 Abdomen Single View [facility] [address] [place], [place] [id number] Abdomen Single View MR#: [id number] Acct: [id number] Name: TERESA CASH Rep #: [id number] : 1975 F 49 From: Yung Reynoso PCP: LAMAR Scales Status: REG CLI Study: Abdomen Single View Date of Exam: 12/07/24 Exam# [id number] Ordering Dr: Paola Heath PROCEDURE: ABDOMEN SINGLE VIEW 12/07/2024 REASON FOR EXAM: SITZ MARKER DAY 3 TECHNIQUE: Procedure Code: RADABD Modality: DX Procedure: ABDOMEN SINGLE VIEW COMPARISON: None. RAD/Abdomen Single View IMPRESSION: A total of 4 Sitz markers are seen, 1 in the region of the hepatic flexure, a 2nd at the proximal transverse colon, a 3rd of the distal descending colon, and the 4th at the rectosigmoid region. The bowel-gas pattern is unremarkable. No mass or mass effect is seen. Ltgg-zb-dmpqkhuv degenerative changes of the visualized spine are seen. Mild asymmetric left sacroiliac joint degenerative changes also noted. Reading Location: [place] [address] CC: LAMAR Whitaker; LAMAR Heath Lead Technician: Signed Normal [facility] Visit Repor ton 11-29-2024 Gastroenterology Visit Report [facility] Gastroenterology [address] [place] [address] OFFICE VISIT Date of Service: 11/29/24 MR#: [id number] Acct: [id number] Name: TERESA CASH Rep #: [id number] : 1975 Provider: LAMAR montgomery Age/Sex: 49/F Location[place] [facility] [place] Status: Signed Intake Vital Signs 10/10/24 09:44 10/20/24 13:32 Height 5 ft 8 in 5 ft 8 in Weight: 172 lb 176 lb 8 oz BMI 26.1 26.8 BP 136/70 H 147/99 H Blood Pressure Location Rt brachial Position Sitting Respiration 14 Pulse 76 56 L Pulse Source Monitor Temp 98.3 F 98.2 F Temp Source Oral Temporal Pulse Oximetry (%) 96 97 Oxygen Delivery Method room air room air Intake Visit Reasons: CHRONIC GASTRITIS Chief Complaint: Headache, Dizzy, Nausea Manager Transfer Required: No Accompanied by: Self Is patient in pain?: No Allergies clarithromycin (From Biaxin) Allergy (Mild, Verified 11/29/24 08:41) other erythromycin base (From Erythrocin) Allergy (Mild, Verified 11/29/24 08:41) other Medications ???Medication ???Instructions ???Recorded ???Confirmed ???Type cholecalciferol (vitamin D3) 250 250 mcg PO QWEEK REPLACEMENT 12/1411/29/24 History mcg (10,000 unit) capsule cyanocobalamin (vitamin B-12) 1,000 mcg PO DAILY 12/15/19 History 1,000 mcg capsule olmesartan 20 mg tablet (Benicar) 20 mg PO DAILY 12/15/19 11/29/24 History Held on 02/16/24. Instructions: Resume on 03/05/24. tizanidine 4 mg tablet 0 - 12 mg PO QHS 02/14/24 11/29/24 History ondansetron 4 mg disintegrating 4 mg PO Q8H PRN PRN Nausea #10 tab s 10/10/24 11/29/24 Rx tablet bupropion HCl 300 mg 24 hr tablet, 300 mg PO QAM 11/29/24 11/29/24 History extended release (Wellbutrin XL) peg 3350-electrolytes 236 240 ml PO Q10M #4,000 mL 11/29/24 11/29/24 Rx gram-22.74 gram-6.74 gram-5.86 gram solution (Golytely) PFSH Medical History Hair loss Fatigue Hot flashes Atrophic vaginitis Family history of bladder cancer Family history of colon cancer in father Family history of breast cancer Chronic gastritis Ganglion cyst Ovarian cyst History of depression Hypertension Surgical History Hx of appendectomy Family History Mother Bladder cancer Aunt Cancer appendix Father Cancer stomach Suicide Grandmother Cancer abdom. 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 - February this year she was admitted for Stage 4 CKD, unknown cause and labs are normal. - Reports having left flank pain. - She uses Miralax once a month for 3-4 days and enemas. - She reports going a week without a BM. - Weight gain of 40lbs in the past year. - Reports a history of early satiety, denies any issues the past 2 weeks. - Reports the past 2 weeks she has been having diarrhea. - Reports she is eating normally the past 2 weeks. - Denies any abdominal pain. - Denies any bleeding. - Reports her last colonoscopy revealed colon polyps 2022. - Father with colon cancer. - She denies any dietary changes and experiences severe bloating within an hour or two of eating with lower abdominal pressure. ROS Const Constitutional: Positive for fatigue and weight change; No fever(s) ENT ENT: No difficulty swallowing Gastro GI: Positive for abdominal pain, bloating, change in bowel habits, constipation and nausea/dyspepsia; No belching, change in stool character, coffee ground emesis, cramping, diarrhea, heartburn, difficulty swallowing, feeling full early, excessive flatus, incontinent of stools, Vomiting blood/h ematemesis, Blood in stool, loose stools, Black,tarry stools, pain with swallowing, vomiting or other Musc Musculoskeletal: No joint pain Skin Skin: Positive for itchy eyes; No yellowing of the eye Psych Psychiatric: No anxiety and No depression Endo Endocrine: Positive for fatigue and weight change Aller/Imm Allergy/Immunologic: Positive for itchy eyes Say/Lymp Hematologic/Lymphatic : No easy bleeding or easy bruising Exam Const (more content not included)... Normal [facility] CREATININE, 24 HOUR URINEon 11-10-2024 CREATININE, 24 HOUR URINE 1.38 g/24 h Normal 0.50-2.15 [facility] Comment on above: Order Comment: SPLIT 11/05/2024 FROM [id number]:NOFASTING: NO Result Comment: URIN E VOLUME: 0/ Performed By: #### 9 51, 57270, 5346, 38925, 41466 #### [facility] [address], [address] [place] [address] [address] Design Draftsperson: Otto Conley MD T3, FREE 11-09-2024 Free T3 [Mass/Vol] 3.3 pg/mL Normal 2.3-4.2 [facility] Comment on above: Performed By: #### 3 4429, 5081, 899, 866 #### [facility] [address], [address] [place] [phone] [address] Design Draftsperson: Otto Conley MD T4, FREEon 11-09-2024 Free T4 [Mass/Vol] 1.4 ng/dL Normal 0.8-1.8 [facility] Comment on above: Performed By: #### 3 4429, 5081, 899, 866 #### [facility] [address], [address] [place] [address] Road Design Draftsperson: Otto Conley MD THYROID PEROXIDASE ANTIBODIE Son 11-09-2024 THYROID PEROXIDASE ANTIBODIES 1 IU/mL Normal <9 [facility] Comment on above: Order Comment: FASTI NG:NO COLLECTION KIT GIVEN TO PATIENT. PATIENT ADVISED TO RETURN. FASTING: NO Performed By: #### 3 4429, 5081, 899, 866 #### [facility] [place] [address] [address] Design Draftsperson: Otto Conley MD TSHon 11-09-2024 TSH Qn 0.98 m[IU]/L Normal [facility] Comment on above: Result Comment: Refe rence Range > or = 20 Years 0.40-4.50 Ranges First trimester 0.26-2.66 Second trimester 0.55-2.73 Third trimester 0.43-2.91 Performed By: #### 3 4429, 5081, 899, 866 #### [facility] [place] [address] [address] Design Draftsperson: Otto Conley MD 25(OH)D3 [facility] 2024 25-hydroxyvitamin D3 [Mass/Vol] 36.0 ng/mL Normal 31.0-80.0 [facility] Comment on above: Order Comment: Speci men Type: BLOOD SPECIMEN Ordering Facility: External Submitter Address: , , Result Comment: Clas sification of 25 [place] Vitamin D status: Deficiency/Insufficiency: < or = 30 ng/ml. Sufficiency/Optimal Levels: 31-80 ng/mL Toxicity: > 100 ng/mL. Test performed by chemiluminescent immunoassay. Performed By: #### 1 989-3 #### [facility] CLIA [id number] [address] OF [facility] CBC panel Auto (Bld)on 10-20 Erythrocyte distribution width (RBC) [Ratio] 11.8 % Normal 11.5-15.0 [facility] Comment on above: Order Comment: Speci men Type: BLOOD SPECIMEN Ordering Facility: External Submitter Address: , , Performed By: #### 5 8410-2 #### [id number] [address] [place] [address] OF [facility] Hematocrit (Bld) [Volume fraction] 39.3 % Normal 36.0-46.0 [facility] Comment on above: Order Comment: Speci men Type: BLOOD SPECIMEN Ordering Facility: External Submitter Address: , , Performed By: #### 5 8410-2 #### [facility] [id number] [address] [place] [address] [place] Hemoglobin (Bld) [Mass/Vol] 13.5 g/dL Normal 11.5-15.5 [facility] Comment on above: Order Comment: Speci men Type: BLOOD SPECIMEN Ordering Facility: External Submitter Address: , , Performed By: #### 5 8410-2 #### [facility] [id number] [address] [place] [address] [place] MCH (RBC) [Entitic mass] 32.8 pg Normal 26.0-34.0 [facility] Comment on above: Order Comment: Speci men Type: BLOOD SPECIMEN Ordering Facility: External Submitter Address: , , Performed By: #### 5 8410-2 #### [facility] [id number] [address] [place] [address] [place] MCHC (RBC) [Mass/Vol] 34.4 g/dL Normal 30.5-36.0 [facility] Comment on above: Order Comment: Speci men Type: BLOOD SPECIMEN Ordering Facility: External Submitter Address: , , Performed By: #### 5 8410-2 #### [facility] CLIA [id number] [address] [place] [address] [place] MCV (RBC) [Entitic vol] 95.6 fL Normal 80.0-100.0 C [facility] Comment on above: Order Comment: Speci men Type: BLOOD SPECIMEN Ordering Facility: External Submitter Address: , , Performed By: #### 5 8410-2 #### [facility] CLIA [id number] [address] [place] [address] [place] Nucleated RBC (Bld) [#/Vol] 10*3/uL Normal <0.01 [facility] Comment on above: Order Comment: Speci men Type: BLOOD SPECIMEN Ordering Facility: External Submitter Address: , , Performed By: #### 5 8410-2 #### [facility] CLIA [id number] [address] [place] [address] [place] Platelet mean volume (Bld) [Entitic vol] 9.3 fL Normal 9.0-12.7 [facility] Comment on above: Order Comment: Speci men Type: BLOOD SPECIMEN Ordering Facility: External Submitter Address: , , Performed By: #### 5 8410-2 #### [facility] CLIA [id number] [address] [place] [address] [place] Platelets (Bld) [#/Vol] 330 10*3/uL Normal 150-400 [facility] Comment on above: Order Comment: Speci men Type: BLOOD SPECIMEN Ordering Facility: External Submitter Address: , , Performed By: #### 5 8410-2 #### [facility] CLIA [id number] [address] [place] [address] [place] RBC (Bld) [#/Vol] 4.11 10*6/uL Normal 3.90-5.20 [facility] Comment on above: Order Comment: Speci men Type: BLOOD SPECIMEN Ordering Facility: External Submitter Address: , , Performed By: #### 5 8410-2 #### [facility] CLIA [id number] [address] [place] [address] [place] WBC (Bld) [#/Vol] 5.08 10*3/uL Normal 3.70-11.00 [facility] Comment on above: Order Comment: Speci men Type: BLOOD SPECIMEN Ordering Facility: External Submitter Address: , , Performed By: #### 5 8410-2 #### [facility] CLIA [id number] [address] [place] [address] [place] Comprehensive metabolic 2000 panelon 10-20-2024 Albumin [Mass/Vol] 4.6 g/dL Normal 3.9-4.9 [facility] Comment on above: Order Comment: Speci men Type: BLOOD SPECIMEN Ordering Facility: External Submitter Address: , , Performed By: #### 2 4323-8 #### [facility] CLIA [id number] [address] [place] [address] [place] ALP [Catalytic activity/Vol] 97 U/L Normal 34-123 [facility] Comment on above: Order Comment: Speci men Type: BLOOD SPECIMEN Ordering Facility: External Submitter Address: , , Performed By: #### 2 4323-8 #### [facility] CLIA [id number] [address] [place] [address] [place] ALT [Catalytic activity/Vol] 14 U/L Normal 7-38 [facility] Comment on above: Order Comment: Speci men Type: BLOOD SPECIMEN Ordering Facility: External Submitter Address: , , Performed By: #### 2 4323-8 #### [facility] CLIA [id number] [address] [place] [address] [place] Anion gap [Moles/Vol] 11 mmol/L Normal 8-15 [facility] Comment on above: Order Comment: Speci men Type: BLOOD SPECIMEN Ordering Facility: External Submitter Address: , , Performed By: #### 2 4323-8 #### [facility] CLIA [id number] [address] [place] [address] [place] AST [Catalytic activity/Vol] 18 U/L Normal 13-35 [facility] Comment on above: Order Comment: Speci men Type: BLOOD SPECIMEN Ordering Facility: External Submitter Address: , , Performed By: #### 2 4323-8 #### [facility] CLIA [id number] [address] [place] [address] [place] Bilirubin [Mass/Vol] 0.4 mg/dL Normal 0.2-1.3 [facility] Comment on above: Order Comment: Speci men Type: BLOOD SPECIMEN Ordering Facility: External Submitter Address: , , Performed By: #### 2 4323-8 #### [facility] [id number] [address] [place] [address] [place] Calcium [Mass/Vol] 9.8 mg/dL Normal 8.5-10.2 [facility] Comment on above: Order Comment: Speci men Type: BLOOD SPECIMEN Ordering Facility: External Submitter Address: , , Performed By: #### 2 4323-8 #### [facility] [id number] [address] [place] [address] [place] Chloride [Moles/Vol] 104 mmol/L Normal 98-107 [facility] Comment on above: Order Comment: Speci men Type: BLOOD SPECIMEN Ordering Facility: External Submitter Address: , , Performed By: #### 2 4323-8 #### [facility] CLIA [id number] [address] [place] [address] [place] CO2 [Moles/Vol] 25 mmol/L Normal 22-30 [facility] Comment on above: Order Comment: Speci men Type: BLOOD SPECIMEN Ordering Facility: External Submitter Address: , , Performed By: #### 2 4323-8 #### [facility] CLIA [id number] [address] [place] [address] [place] Creatinine [Mass/Vol] 0.62 mg/dL Normal 0.58-0.96 [facility] Comment on above: Order Comment: Specnicole rao Type: BLOOD SPECIMEN Ordering Facility: External Submitter Address: , , Performed By: #### 2 4323-8 #### [facility] CLIA [id number] [address] [place] [address] [place] eGFRcr SerPlBld CKD-EPI 2020 109 mL/min/1.73m??? Normal >=60 [facility] Comment on above: Order Comment: Lulu rao Type: BLOOD SPECIMEN Ordering Facility: External Submitter Address: , , Result Comment: Ivet mated Glomerular Filtration Rate (eGFR) is calculated using the 2020 CKD-EPI creatinine equation. This equation utilizes serum creatinine, sex, and age as parameters. The creatinine assay has traceable calibration to isotope dilution-mass spectrometry. Refer to KDIGO guidelines for clinical interpretation. In patients with unstable renal function, e.g. those with acute kidney injury, the eGFR may not accurately reflect actual GFR. Performed By: #### 2 4323-8 #### [facility] CLIA [id number] [address] [place] [address] [place] Glucose [Mass/Vol] 98 mg/dL Normal 74-99 [facility] Comment on above: Order Comment: Lulu rao Type: BLOOD SPECIMEN Ordering Facility: External Submitter Address: , , Result Comment: The [place] Diabetes Association (ADA) provides guidance for cutoff values for fasting glucose and random glucose. The ADA defines fasting as no caloric intake for at least 8 hours. Fasting plasma glucose results between 100 to 125 mg/dL indicate increased risk for diabetes (prediabetes). Fasting plasma glucose results greater than or equal to 126 mg/dL meet the criteria for diagnosis of diabetes. In the absence of unequivocal hyperglycemia, results should be confirmed by repeat testing. In a patient with classic symptoms of hyperglycemia or hyperglycemic crisis, random plasma glucose results greater than or equal to 200 mg/dL meet the criteria for diagnosis of diabetes. Reference: Standards of Medical Care in Diabetes 2016, [place] [employer] Association. Diabetes Care. 2016.39(Suppl 1). Performed By: #### 2 4323-8 #### [facility] CLIA [id number] [address] [place] [address] [place] Potassium [Moles/Vol] 4.0 mmol/L Normal 3.7-5.1 [facility] Comment on above: Order Comment: Speci jalen Type: BLOOD SPECIMEN Ordering Facility: External Submitter Address: , , Performed By: #### 2 4323-8 #### [facility] CLIA [id number] [address] [place] [address] [place] Protein [Mass/Vol] 7.1 g/dL Normal 6.3-8.0 [facility] Comment on above: Order Comment: Katniai jalen Type: BLOOD SPECIMEN Ordering Facility: External Submitter Address: , , Performed By: #### 2 4323-8 #### [facility] [id number] [address] [place] [address] [place] Sodium [Moles/Vol] 140 mmol/L Normal 136-144 [facility] Comment on above: Order Comment: Lulu rao Type: BLOOD SPECIMEN Ordering Facility: External Submitter Address: , , Performed By: #### 2 4323-8 #### [facility] [id number] [address] [place] [address] [place] Urea nitrogen [Mass/Vol] 8 mg/dL Normal 7-21 [facility] Comment on above: Order Comment: Lulu rao Type: BLOOD SPECIMEN Ordering Facility: External Submitter Address: , , Performed By: #### 2 4323-8 #### [facility] CLIA [id number] [address] [place] [address] [place] Folate SerPl-mCncon 10-21-19 25 Folate [Mass/Vol] 15.0 ng/mL Normal >4.7 [facility] Comment on above: Order Comment: Lulu rao Type: BLOOD SPECIMEN Ordering Facility: External Submitter Address: , , Performed By: #### 2 284-8, 2132-9 #### [facility] CLIA [id number] [facility] [address] [address] [place] HbA1c (Bld)on 10-20-2024 Average glucose Estimated from glycated hemoglobin (Bld) [Mass/Vol] 111 mg/dL Normal [facility] Comment on above: Order Comment: Lulu rao Type: BLOOD SPECIMEN Ordering Facility: External Submitter Address: , , Result Comment: eAG: (Estimated average glucose) is a calculated value from HgbA1c and is brewery representative of the average blood glucose level in the last 2-3 month period. Performed By: #### 5 5454-3 #### [facility] CLIA [id number] [address] [place], [place] [address] [place] [facility] HbA1c (Bld) [Mass fraction] 5.5 % Normal 4.3-5.6 [facility] Comment on above: Order Comment: Lulu rao Type: BLOOD SPECIMEN Ordering Facility: External Submitter Address: , , Result Comment: [place] Diabetes Association guidelines indicate that patients with HgbA1c in the range 5.7-6.4% are at increased risk for development of diabetes, and intervention by lifestyle modification may be beneficial. HgbA1c greater or equal to 6.5% is considered diagnostic of diabetes. Performed By: #### 5 5454-3 #### [facility] CLIA [id number] [address] [place] [address] [place] Insulin SerPl-aCncon 025 Insulin Qn 3.8 uU/mL Normal 2.6-24.9 [facility] Comment on above: Order Comment: Lulu rao Type: BLOOD SPECIMEN Ordering Facility: External Submitter Address: , , Performed By: #### 2 0448-7 #### [facility] CLIA [id number] [address] [place] [address] [place] URINALYSIS, REFLEX MICROSCOP ICon 10-20-2024 Bilirubin Ql (U) Negative Normal Negative [facility] Comment on above: Order Comment: Speci men Type: URINE SPECIMEN Ordering Facility: External Submitter Address: , , Performed By: #### L [id number] #### [facility] CLIA [id number] [facility] [address] [place] [address] [place] Clarity (Unsp spec) Clear Normal Clear [facility] Comment on above: Order Comment: Speci men Type: URINE SPECIMEN Ordering Facility: External Submitter Address: , , Performed By: #### L [id number] #### [facility] CLIA [id number] [address] [place] [address], [place] [address] [place] Color (U) Yellow Normal Yellow [facility] Comment on above: Order Comment: Speci men Type: URINE SPECIMEN Ordering Facility: External Submitter Address: , , Performed By: #### L [id number] #### [facility] CLIA [id number] [address] [place] [address], [place] [address] [place] Glucose Test strip (U) [Mass/Vol] Negative Normal Negative [facility] Comment on above: Order Comment: Speci men Type: URINE SPECIMEN Ordering Facility: External Submitter Address: , , Performed By: #### L [id number] #### [facility] CLIA [id number] [facility] [address] [place] [address] [place] Hemoglobin Ql (U) Negative Normal Negative [facility] Comment on above: Order Comment: Speci men Type: URINE SPECIMEN Ordering Facility: External Submitter Address: , , Performed By: #### L [id number] #### [facility] CLIA [id number] [address] [place] [address] [place] Ketones Ql (U) Negative Normal Negative [facility] Comment on above: Order Comment: Speci men Type: URINE SPECIMEN Ordering Facility: External Submitter Address: , , Performed By: #### L [id number] #### [facility] CLIA [id number] [facility] [address] [place] [facility] Leukocyte esterase Test strip Ql (U) Negative Normal Negative [facility] Comment on above: Order Comment: Speci men Type: URINE SPECIMEN Ordering Facility: External Submitter Address: , , Performed By: #### L [id number] #### [facility] CLIA [id number] [address] [place] [address] [place] Nitrite Ql (U) Negative Normal Negative [facility] Comment on above: Order Comment: Speci men Type: URINE SPECIMEN Ordering Facility: External Submitter Address: , , Performed By: #### L [id number] #### [facility] CLIA [id number] [address] [place] [address] [place] pH (U) 5.5 [pH] Normal 5.0-8.0 [facility] Comment on above: Order Comment: Speci men Type: URINE SPECIMEN Ordering Facility: External Submitter Address: , , Performed By: #### L [id number] #### [facility] CLIA [id number] [address] [place] [address] [place] Protein (U) [Mass/Vol] Negative Normal Negative [facility] Comment on above: Order Comment: Speci men Type: URINE SPECIMEN Ordering Facility: External Submitter Address: , , Performed By: #### L [id number] #### [facility] CLIA [id number] [address] [place], [place] [address] [place] Specific gravity (U) [Rel density] 1.019 Normal 1.005-1.030 [facility] Comment on above: Order Comment: Speci men Type: URINE SPECIMEN Ordering Facility: External Submitter Address: , , Performed By: #### L [id number] #### [facility] CLIA [id number] [address] [place], [place] [address] [place] Urobilinogen Ql (U) 0.2 EU/dL Normal 0.2-1.0 EU/dL [facility] Comment on above: Order Comment: Speci men Type: URINE SPECIMEN Ordering Facility: External Submitter Address: , , Performed By: #### L [id number] #### [facility] CLIA [id number] [address] [place], [place] [address] [place] Vit B12 SerPl-ncon 10-20- 025 Cobalamin (Vitamin B12) [Mass/Vol] 694 pg/mL Normal 232-1245 [facility] Comment on above: Order Comment: Speci men Type: BLOOD SPECIMEN Ordering Facility: External Submitter Address: , , Performed By: #### 2 284-8, 2132-9 #### [facility] CLIA [id number] [address] [place], [place] [id number] [place] Urgent Care Visit Reporton 0 10-10-2024 Urgent Care Visit Report [facility] [address], [address] [place] [id number] OFFICE VISIT Date of Service: 10/10/24 MR#: [id number] Acct: [id number] Name: TERESA CASH Rep #: [id number] : 1975 Provider: LAMAR torres Age/Sex: 48/F Location: [facility] Status: Signed Intake Vital Signs 02/14/24 10:40 10/10/24 09:44 Height 5 ft 11 in 5 ft 8 in Weight: 172 lb BMI 26.1 BP 136/70 H Blood Pressure Location Rt brachial Position Sitting Pulse 76 Pulse Source Monitor Temp 98.3 F Temp Source Oral Pulse Oximetry (%) 96 Oxygen Delivery Method room air Intake Visit Reasons: HEADACHE, VERTIGO, NAUSEA Chief Complaint: Headache, Dizzy, Nausea Accompanied by: Allergies clarithromycin (From Biaxin) Allergy (Mild, Verified 02/14/24 00:29) other erythromycin base (From Erythrocin) Allergy (Mild, Verified 02/14/24 00:29) other Medications ???Medication ???Instructions ???Recorded ???Confirmed ???Type cholecalciferol (vitamin D3) 250 250 mcg PO QWEEK REPLACEMENT 12/1410/10/24 History mcg (10,000 unit) capsule cyanocobalamin (vitamin B-12) 1,000 mcg PO DAILY 12/15/19 History 1,000 mcg capsule olmesartan 20 mg tablet (Benicar) 20 mg PO DAILY 12/15/19 10/10/24 History Held on 02/16/24. Instructions: Resume on 03/05/24. estradiol 0.01% (0.1 mg/gram) See Rx Instructions vaginal 10/10/24 Rx vaginal cream .COMPLEX #42.5 grams tizanidine 4 mg tablet 0 - 12 mg PO QHS 02/14/24 10/10/24 History amoxicillin 875 mg-potassium 1 tab PO Q12H 10 days #20 tabs 10/10/24 Rx clavulanate 125 mg tablet fluconazole 150 mg tablet 150 mg PO Q3D 2 doses #2 tabs 09/1210/10/24 Rx ondansetron 4 mg disintegrating 4 mg PO Q8H PRN PRN Nausea #10 tab s 10/10/24 10/10/24 Rx tablet rizatriptan 10 mg tablet (Maxalt) See Rx Instructions PO .COMPLEX # 6 10/10/24 10/10/24 Rx tabs Nurse's Note: Dizziness, right ear pain, sinus pressure, fatigued. X 3 days. PFSH Medical History Hair loss Fatigue Hot flashes Atrophic vaginitis Family history of bladder cancer Family history of colon cancer in father Family history of breast cancer Chronic gastritis Ganglion cyst Ovarian cyst History of depression Hypertension Surgical History Hx of appendectomy Family History Mother Bladder cancer Aunt Cancer appendix Father Cancer stomach Suicide Grandmother Cancer abdom. 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 She states she may be experiencing migraine as well. She states history of vertigo and now resolved left ear pain. ROS Const Constitutional: Positive for fatigue; No body ache, chills, fever(s), headache(s) or change in appetite Eyes Eyes: No blurry vision, change in vision, double vision, irritation, discharge, vision loss, dry eyes, bulging eyes, floaters, visual disturbances, eye pain, Light sensitivity, spots in vision, tunnel vision or other ENT ENT: Positive for ear or mastoid pain (righ), sinus pressure and sinus pain; No ear discharge, ear pressure, tinnitus, dizziness/vertigo, nosebleed/epistaxis, nasal congestion, nose pain, nasal discharge, post nasal drip, headache(s), facial pain, dental pain, difficulty swallowing, bad breath, hoarseness, lip swelling, mouth lesions, mouth pain, neck pain, sore throat, tongue swelling or throat swelling Resp Respiratory: No cough, change in phlegm color, chest congestion, hemoptysis, pain on inspiration, shortness of breath, pain with cough, stridor or wheezing Cardio Cardiology: No chest pain at rest, chest pain with exertion, shortness of breath, dyspnea on exertion or lightheadedness Gastro GI: No abdominal pain, change in bowel habits or difficulty swallowing Genitourinary-Female: No burning urination or urinary frequency Musc Musculoskeletal: No joint pain or neck pain Skin Skin: No rash Neuro Neurology: Positive for dizziness; No headache(s) or visual disturbances Psych Psychiatric: No change in appetite Endo Endocrine: Positive (more content not included)... Normal [facility] CT KIDNEY STONEon 07-19-2024 CT KIDNEY STONE EXAMINATION: CT KIDNEY STONE07/19/2024 HISTORY: ORDERING SYSTEM PROVIDED HISTORY: Urolithiasis, symptomatic; right flank pain, TECHNOLOGIST PROVIDED HISTORY: Illness/Other Reason for exam: concern for kidney stone right flank pain Encounter Type: Initial Additional signs and symptoms: na ORDERING SYSTEM PROVIDED DIAGNOSIS CODES: COMPARISON: Abdominal ultrasound 10/01/2022. TECHNIQUE: Unenhanced helical imaging of the abdomen and pelvis. Multiplanar reconstructions. Dose reduction techniques were achieved by using: automated exposure control and/or adjustment of mA and/or kV according to patient size and/or use of iterative reconstruction technique. FINDINGS: ABDOMEN: LOWER CHEST:The imaged lung bases are clear. SOLID ORGANS: The spleen, adrenals, pancreas, gallbladder, biliary ducts are within normal limits. No biliary or pancreatic duct dilatation. Liver morphology, density, size are normal. No hepatic lesions. The kidneys are symmetric. No urinary tract calculi and no hydronephrosis. MESENTERY AND RETROPERITONEUM: Aorta and IVC are intact. Aortic caliber is normal and the IVC is adequately distended. No free fluid, fluid collection or adenopathy. BOWEL: The stomach, proximal small bowel and imaged portions of the colon are normal in course and caliber. No bowel wall thickening or pneumatosis. OSSEOUS STRUCTURES: No acute osseous abnormality. BODY WALL AND SOFT TISSUES: No acute abnormality. PELVIS: GENITOURINARY: The distal ureters, urinary bladder, vagina and imaged urethra are all within normal limits. The uterus and adnexa are intact. No distal urinary tract calculi. MESENTERY: No free fluid, fluid collection or adenopathy. BOWEL: Distal small bowel, rectosigmoid colon, cecum and imaged ascending colon are intact. No bowel wall thickening. Prior appendectomy. VASCULATURE: Noncontrast study. OSSEOUS STRUCTURES: No acute osseous abnormality. BODY WALL AND SOFT TISSUES: No acute abnormality. No inguinal adenopathy. IMPRESSION: 1. No acute abdominal or pelvic inflammatory process. 2. No urinary tract calculi or hydronephrosis. 3. Prior appendectomy. No adenopathy. KEVINR/brittni Workstation ID: [id number] Dictated by: BENNETT HAYWOOD on FriJul 19, 2024 3:31:43 PM EDT Transcribed by: JACINDA FRANCIS on FriJul 19, 2024 3:36:50 PM EDT Finalized by: BENNETT HAYWOOD on FriJul 19, 2024 7:41:10 PM EDT [facility] Comment on above: Order Comment: Injur y/Trauma or Illness?:Illness/Other How long have you had these symptoms (acute/chronic)?:Acute Reason for exam?:concern for kidney stone right flank pain Type of Exam?:Initial Additional signs and symptoms?:na ED Prov Noteon 07-19-2024 ED Prov Note ED PROVIDER NOTE [facility] NAME: Teresa Cash AGE: 48 y.o. : 1975 VISIT DATE: 07/19/2024 CSN: [id number] PCP: Galilea Whitaker, CASEWORKER Chief Complaint Patient presents with Flank Pain Chief complaint flank pain History of present illness this is a 48-year-old female who is here with right flank pain onset about 3 hours ago very similar to the pain that she had on previous admission at that point they had noted that she was in acute renal failure creatinine was like 3.2-4.1. They could not ascertain why she went into acute renal failure but the patient is here with those symptoms today Past Medical History: Diagnosis Date Anemia Arrhythmia [...] ADENOIDECTOMY as an infant APPENDECTOMY CYST REMOVAL GANGLIONECTOMY UPPER EXTREMITY Left 07/02/2024 Procedure: Left hand cyst removal; Surgeon: Sameera Gonzales MD; Location: [facility]; Service: Orthopedic; Laterality: Left; KNEE SURGERY Right 03/25/2018 Dr. Ramsay TONSILLECTOMY as an Family History Problem Relation Age of Onset Cancer Mother bladder, pelvis Arrhythmia Mother Arthritis Mother Depression Mother Cancer Father type unknown Alcohol abuse Father Early Father suicide Mental illness Father Arthritis Maternal Aunt Dementia Paternal Aunt Stroke Maternal Grandmother stroke as COD Heart failure Maternal Grandmother Arthritis Maternal Grandmother Hearing loss Maternal Grandmother Cancer Paternal Grandmother Abdominal Hypertension Brother Uncontrolled Stroke Brother X3 in 2018 Cancer Other Hypertension Other Seizures Other Stroke Other Breast cancer Neg Hx Social History [1] Previous Medications Medication Sig buPROPion (WELLBUTRIN XL) 300 MG 24 hr tablet Take 1 (one) tablet (300 mg total) by mouth daily . cetirizine (ZYRTEC) 10 MG tablet Take 1 (one) tablet (10 mg total) by mouth every evening . cholecalciferol, vitamin D3, 5,000 unit Tab tablet Take by mouth daily . cyanocobalamin (B-12) 1000 MCG tablet Take 5 (five) tablets (5,000 mcg total) by mouth daily . estradioL (ESTRACE) 0.01 % (0.1 mg/gram) vaginal cream APPLY SMALL AMOUNT DIRECTED VAGINALLY EVERY OTHER DAY X 4 WEEKS THEN TWICE A WEEK fluconazole (DIFLUCAN) 150 MG tablet Take 1 tablet, if no improvement in 3 days, take second tablet . ivermectin 1 % Crea Apply topically . magnesium hydroxide 400 mg (170 mg magnesium) Chew as directed Orally meclizine (ANTIVERT) 25 mg tablet Take 1 (one) tablet (25 mg total) by mouth 3 (three) times a day as needed . olmesartan (BENICAR) 40 MG tablet Take 1 (one) tablet (40 mg total) by mouth daily . polyethylene glycol (GLYCOLAX) 17 gram/dose powder Take 17 (seventeen) g by mouth daily . tiZANidine (Zanaflex) 4 MG tablet Take up to 3 (three) tablets (12 mg total) by mouth at bedtime. valACYclovir (VALTREX) 1000 MG tablet TAKE 2 TABLETS (2,000 MG TOTAL) BY MOUTH TWICE A DAY FOR 1 DAY Allergies[2] Review of Systems All other systems reviewed and are negative. Patient Vitals for the past 24 hrs: BP Temp Temp src Pulse Resp SpO2 Height Weight 07/19/24 1454 -- 98.1 degrees F (36.7 degrees C) Oral -- -- -- -- -- 07/19/24 1452 (!) 143/95 -- -- (!) 59 18 96 % 5' 8" 77.1 kg (170 lb) Physical Exam Vitals and nursing note reviewed. Exam conducted with a radiology ct technologist present. Constitutional: General: She is in acute distress. Appearance: Normal appearance. She is normal weight. HENT: Head: Normocephalic and atraumatic. Nose: Nose normal. Mouth/Throat: Mouth: Mucous membranes are dry. Cardiovascular: Rate and Rhythm: Normal rate and regular rhythm. Musculoskeletal: Cervical back: Normal range of motion and neck supple. Pulmonary: Effort: Pulmonary effort is normal. Breath sounds: Normal breath sounds. Abdominal: General: Abdomen is flat. Tenderness: There is right CVA tenderness. Skin: Capillary Refill: Capillary refill takes less than 2 seconds. Neurological: Mental Status: She is alert. Laboratory & Radiographic Imaging (if done): Results for orders placed or performed during the hospital encounter of 07/19/24 POC CBC and Differential Result Value Ref Range WBC 7.06 4.50 - 11.00 K/mcL RBC 4.01 4.00 - 5.20 M/mcL Hemoglobin 13.2 12.0 - 16.0 g/dL Hematocrit 39.6 36.0 - 46.0 % MCV 98.8 80.0 - 100.0 fL MCH 32.9 26.0 - 34.0 pg MCHC 33.3 31.0 - (more content not included)... Normal [facility] POC BASIC METABOLIC PANEL - Marely 07-19-2024 Chloride [Moles/Vol] 104 mmol/L Normal 98-108 [facility] Comment on above: Order Comment: [facility] has implemented the eGFR calculation approach that does not have a coefficient for race that conforms to the NKF-ASN Task Force Recommendations. CO2 [Moles/Vol] 29 mmol/L Normal 21-32 [facility] Comment on above: Order Comment: [facility] has implemented the eGFR calculation approach that does not have a coefficient for race that conforms to the NKF-ASN Task Force Recommendations. Creatinine [Mass/Vol] 0.61 mg/dL Normal 0.40-1.10 [facility] Comment on above: Order Comment: [facility] has implemented the eGFR calculation approach that does not have a coefficient for race that conforms to the NKF-ASN Task Force Recommendations. Glucose [Mass/Vol] 108 mg/dL High 65-99 [facility] Comment on above: Order Comment: [facility] has implemented the eGFR calculation approach that does not have a coefficient for race that conforms to the NKF-ASN Task Force Recommendations. POC GFR 109 mL/min/1.73 m2 Normal >=60 [facility] Comment on above: Order Comment: [facility] has implemented the eGFR calculation approach that does not have a coefficient for race that conforms to the NKF-ASN Task Force Recommendations. Result Comment: Ivet mated GFR was calculated using the 2020 CKD-EPI creatinine equation. POC IONIZED CALCIUM 5.0 mg/dL Normal 4.5-5.3 [facility] Comment on above: Order Comment: [facility] has implemented the eGFR calculation approach that does not have a coefficient for race that conforms to the NKF-ASN Task Force Recommendations. Potassium [Moles/Vol] 3.9 mmol/L Normal 3.5-5.1 [facility] Comment on above: Order Comment: [facility] has implemented the eGFR calculation approach that does not have a coefficient for race that conforms to the NKF-ASN Task Force Recommendations. Sodium [Moles/Vol] 141 mmol/L Normal 135-145 [facility] Comment on above: Order Comment: [facility] has implemented the eGFR calculation approach that does not have a coefficient for race that conforms to the NKF-ASN Task Force Recommendations. Urea nitrogen [Mass/Vol] 11 mg/dL Normal 8-25 [facility] Comment on above: Order Comment: [facility] has implemented the eGFR calculation approach that does not have a coefficient for race that conforms to the NKF-ASN Task Force Recommendations. POC CBC AND DIFFERENTIALon 0 - BASOPHILS ABSOLUTE COUNT 0.03 K/mcL Normal 0.00-0.30 [facility] Basophils/100 WBC (Bld) 0.4 % Normal [facility] Eosinophils (Bld) [#/Vol] 0.17 10*3/uL Normal 0.00-0.5 0 [facility] Eosinophils/100 WBC (Bld) 2.4 % Normal [facility] Erythrocyte distribution width (RBC) [Ratio] 12.0 % Normal 11.6-14.8 [facility] Hematocrit (Bld) [Volume fraction] 39.6 % Normal 36.0-46.0 [facility] Hemoglobin (Bld) [Mass/Vol] 13.2 g/dL Normal 12.0-16.0 [facility] IG ABSOLUTE 0.00 K/mcL Normal 0.00-0.30 [facility] IG PERCENT 0.00 % Normal [facility] Comment on above: Result Comment: The IG parameter is the percentage of metamyelocytes, myelocytes and promyelocytes. An immature granulocyte count (IG) of 1% or more suggests the possibility of infection, an IG count of 3% is very likely related to an infection. Lymphocytes (Bld) [#/Vol] 2.55 10*3/uL Normal 0.90-4.0 0 [facility] Lymphocytes/100 WBC (Bld) 36.1 % Normal [facility] MCH (RBC) [Entitic mass] 32.9 pg Normal 26.0-34.0 [facility] MCV (RBC) [Entitic vol] 98.8 fL Normal 80.0-100.0 [facility] MEAN CORPUSCULAR HEMOGLOBIN CONC 33.3 g/dL Normal 31.0-37.0 [facility] Monocytes (Bld) [#/Vol] 0.61 10*3/uL Normal 0.30-0.90 [facility] Monocytes/100 WBC (Bld) 8.6 % Normal [facility] NEUTROPHILS ABSOLUTE COUNT 3.70 K/mcL Normal 1.70-7.00 [facility] Neutrophils/100 WBC (Bld) 52.5 % Normal [facility] Platelet mean volume (Bld) [Entitic vol] 9.3 fL Low 9.4-12.4 [facility] Platelets (Bld) [#/Vol] 314 10*3/uL Normal 150-400 [facility] RBC (Bld) [#/Vol] 4.01 10*6/uL Normal 4.00-5.20 [facility] WBC (Bld) [#/Vol] 7.06 10*3/uL Normal 4.50-11.00 [facility] POC URINALYSIS DIPSTICK,AUTO - RALSon 07-19-2024 POC BILIRUBIN, URINE Negative Normal Negative [facility] POC BLOOD, URINE Trace-intact Abnormal Negative [facility] POC GLUCOSE, URINE Negative Normal Negative [facility] POC KETONES, URINE Negative Normal Negative [facility] POC LEUKOCYTE ESTERASE, URINE Negative Normal Negative [facility] POC NITRITE, URINE Negative Normal Negative [facility] POC PH, URINE 7.0 Normal 5.0-7.0 [facility] POC PROTEIN, URINE Negative Normal Negative [facility] POC SPECIFIC GRAVITY 1.015 Normal 1.005-1.025 [facility] POC UROBILINOGEN 0.2 mg/dL Normal < 2.0 [facility] OP NOTEon 07-02-2024 OP NOTE ATTENDING PHYSICIAN SAMEERA GONZALES MD PRIMARY CARE PHYSICIAN GALILEA WHITAKER CNP ADMITTING PHYSICIAN SAMEERA GONZALES MD PREOPERATIVE DIAGNOSIS Left hand mass. POSTOPERATIVE DIAGNOSIS Left hand mass. PROCEDURE Left hand mass excision. ANESTHESIA Local anesthetic. COMPLICATIONS No intraoperative complications. SPECIMENS Mass. HISTORY Teresa is a 48-year-old patient with a palmar mass on her left hand causing pain and discomfort, getting larger. Presents for surgical excision. She was explained all the risks and complications of surgery including, but not limited to, the risk of infection, bleeding, neurologic or vascular injury, possibility of deep venous thrombosis, pulmonary embolism, myocardial infarction, stroke, or even with surgery. Explained the possibility that the mass excision could be a neoplastic process that could result in future surgery. The patient understands that and consents for surgical intervention. PROCEDURE IN DETAIL Patient was met in the preoperative holding area where the left hand was confirmed to be the appropriate site and marked by myself. Mass was identified and marked by myself. Patient was taken to the operative suite. Left upper extremity was placed in proximal tourniquet. Left upper extremity was then sterilely prepped and draped using ChloraPrep solution. After sterilization of the left upper extremity, we did our final time-out to confirm that the left hand was the appropriate site. At this time, we then went ahead and proceeded forward with anesthetizing the area of the left hand mass using 1% lidocaine without epinephrine. After adequate anesthesia, tourniquet was elevated. Skin incision was made of about 2 cm from proximal to distal over the mass. At this time subcutaneously we identified this mass. It appeared to be a nodule of the palmar fascia. It measured 1 x 1 cm. It was excised in its entirety, sent to Pathology. Tourniquet was let down. Bleeders were coagulated. Wound was irrigated, closed with 4-0 black nylon suture. Patient was placed in a sterile dressing, taken to PACU without intraoperative complication. D 07/02/2024 11:18 [id number] /[id number] T 07/02/2024 11:41 MCB/MODL AUTHENTICATED BY SAMEERA GONZALES, ON 07/02/2024 12:33:27 Normal [facility] POC , URINE - RALSo n 07-02-2024 Beta HCG ( test) Ql (U) Negative Normal Negative [facility] Comment on above: Order Comment: Negat hemalatha: Dilute urine specimens, as indicated by a low specific gravity (<1.010) may not contain representitive levels of hCG. If is still suspected, a serum test or repeat urine test using a first morning urine specimen should be considered. Performed By: #### 4 [id number] #### [facility] [address] [place], [place] [address] Cassius Brown M.D. [id number] TISSUE EXAMon 07-02-2024 TISSUE EXAM Surgical Pathology Report Case: [id number] Authorizing Provider: Sameera Gonzales MD Collected: 07/02/2024 10:41 AM Ordering Location: [facility] Periop Received: 07/02/2024 12:44 PM Pathologist: Marko Pritchett IV, MD Specimen: Hand, Left, Left Hand mass A. Left Hand, mass, excision: Palmar fibromatosis. at 1135 EDT Mass left hand A. The specimen is received in formalin, designated " hand, left-left hand mass", and consists of an irregular rubbery segment of yellow to white-barrera soft tissue measuring 1 x 0.7 x 0.5 cm. Cut surfaces are homogeneous yellow-barrera. The specimen is bisected and is entirely submitted in a single cassette. JK Gross examination performed at: [facility] - [address] [place] [address] Microscopic examination is performed. Normal [facility] Comment on above: Performed By: #### 4 [id number] #### [facility] [address] [place], [place] [address] Cassius Brown M.D. [id number] CBC (INCLUDES DIFF/PLT)on ABSOLUTE BAND NEUTROPHILS Normal [facility] Comment on above: Performed By: #### 9 27, 47588, 6399, 24202, 49566 #### [facility] [address], [address] [place] [id number] Road Design Draftsperson: Otto Conley MD ABSOLUTE BASOPHILS Normal [facility] Comment on above: Performed By: #### 9 27, 31636, 6399, 02912, 56189 #### [facility] of [address], [address] [place] [address] Road Design Draftsperson: Otto Conley MD ABSOLUTE BLASTS Normal [facility] Comment on above: Performed By: #### 9 27, 51816, 6399, 69999, 25957 #### [facility] of [address], [address] [place] [address] Road Design Draftsperson: Otto Conley MD ABSOLUTE EOSINOPHILS [facility] Comment on above: Performed By: #### 9 27, 49998, 6399, 04507, 69179 #### [facility] of [address], [address] [place] [address] Road Design Draftsperson: Otto Conley MD ABSOLUTE LYMPHOCYTES Normal [facility] Comment on above: Performed By: #### 9 27, 93174, 6399, 50410, 39513 #### [facility] of [address], [address] [place] [address] Road Design Draftsperson: Otto Conley MD ABSOLUTE METAMYELOCYTES Normal [facility] Comment on above: Performed By: #### 9 27, 99638, 6399, 65693, 96808 #### [facility] of [address], [address] [place] [address] Road Design Draftsperson: Otto Conley MD ABSOLUTE MONOCYTES Normal [facility] Comment on above: Performed By: #### 9 27, 40924, 6399, 67832, 67684 #### [facility] of [address], [address] [place] [address] Road Design Draftsperson: Otto Conley MD ABSOLUTE MYELOCYTES Normal [facility] Comment on above: Performed By: #### 9 27, 25825, 6399, 68441, 43357 #### [facility] of [address], [address] [place] [address] Road Design Draftsperson: Otto Conley MD ABSOLUTE NEUTROPHILS Normal [facility] Comment on above: Performed By: #### 9 27, 80235, 6399, 37798, 19482 #### [facility] of [place] [address] [place] , [address] [place] [address] Road Design Draftsperson: Otto Conley MD ABSOLUTE NUCLEATED RBC Normal [facility] Comment on above: Performed By: #### 9 27, 02227, 6399, 30616, 11599 #### [facility] of [place] [address] [place] , [address] [place] [address] Road Design Draftsperson: Otto Conley MD ABSOLUTE PROMYELOCYTES Normal [facility] Comment on above: Performed By: #### 9 27, 01115, 6399, 69461, 23544 #### [facility] of [place] [address] [place] , [address] [place] [address] Road Design Draftsperson: Otto Conley MD BAND NEUTROPHILS Normal [facility] Diagnostics Comment on above: Performed By: #### 9 27, 61349, 6399, 04840, 05127 #### [facility] [place] [address] [address] , [address] [place] [address] Road Design Draftsperson: Otto Conley MD BASOPHILS Normal [facility] Comment on above: Performed By: #### 9 27, 66795, 6399, 58030, 14214 #### [facility] [place] [address] [place] [address] [address] Design Draftsperson: Otto Conley MD BLASTS Normal [facility] Comment on above: Performed By: #### 9 27, 20813, 6399, 89165, 80805 #### [facility] [place] [address] [address] , [address] [place] [address] Road Design Draftsperson: Otto Conley MD COMMENT(S) Normal [facility] Comment on above: Performed By: #### 9 27, 58153, 6399, 26081, 94914 #### [facility] [place] [address] [address] , [address] [place] [address] Road Design Draftsperson: Otto Conley MD EOSINOPHILS Normal [facility] Comment on above: Performed By: #### 9 27, 51120, 6399, 10421, 14647 #### [facility] [place] [address], [address] [place] [address] Road Design Draftsperson: Otto Conley MD HEMATOCRIT Normal [facility] Comment on above: Performed By: #### 9 27, 59387, 6399, 66199, 13824 #### [facility] [place] [address], [address] [place] [address] Road Design Draftsperson: Otto Conley MD HEMOGLOBIN Normal [facility] Comment on above: Performed By: #### 9 27, 95802, 6399, 94634, 77498 #### [facility] [place] [address], [address] [place] [address] Road Design Draftsperson: Otto Conley MD LYMPHOCYTES Normal [facility] Comment on above: Performed By: #### 9 27, 06402, 6399, 34814, 52456 #### [facility] [place] [address], [address] [place] [address] Road Design Draftsperson: Otto Conley MD [facility] Normal [facility] Comment on above: Performed By: #### 9 27, 52347, 6399, 11278, 19888 #### [facility] [place] [address], [address] [place] [address] Road Design Draftsperson: Otto Conley MD [facility] Normal [facility] Comment on above: Performed By: #### 9 27, 51295, 6399, 87657, 29811 #### [facility] [place] [address], [address] [place] [address] Road Design Draftsperson: Otto Conley MD MCV Normal [facility] Comment on above: Performed By: #### 9 27, 10694, 6399, 91011, 66825 #### [facility] [address], [address] [place] [address] Road Design Draftsperson: Otto Conley MD METAMYELOCYTES Normal [facility] Comment on above: Performed By: #### 9 27, 07817, 6399, 94339, 01694 #### [facility] [address], [address] [place] [address] Road Design Draftsperson: Otto Conley MD MONOCYTES Normal [facility] Comment on above: Performed By: #### 9 27, 94373, 6399, 11371, 69512 #### [facility] [address], [address] [place] [address] Road Design Draftsperson: Otto Conley MD MPV Normal [facility] Comment on above: Performed By: #### 9 27, 99414, 6399, 48170, 28753 #### [facility] [address], [address] [place] [address] Road Design Draftsperson: Otto Conley MD MYELOCYTES Normal [facility] Comment on above: Performed By: #### 9 27, 21387, 6399, 82936, 22122 #### [facility] [place] [address], [address] [place] [address] Road Design Draftsperson: Otto Conley MD NEUTROPHILS Normal [facility] Comment on above: Performed By: #### 9 27, 86867, 6399, 51479, 95184 #### [facility] [address], [address] [place] [address] Road Design Draftsperson: Otto Conley MD NUCLEATED RBC Normal [facility] Comment on above: Performed By: #### 9 27, 36323, 6399, 60591, 66928 #### [facility] [address], [address] [place] [address] Road Design Draftsperson: Otto Conley MD PLATELET COUNT Normal [facility] Comment on above: Performed By: #### 9 27, 93525, 6399, 98051, 23141 #### [facility] [address], [address] [place] [address] Road Design Draftsperson: Otto Conley MD PROMYELOCYTES Normal [facility] Comment on above: Performed By: #### 9 27, 09373, 6399, 25781, 40354 #### [facility] [address], [address] [place] [address] Road Design Draftsperson: Otto Conley MD RDW Normal [facility] Comment on above: Performed By: #### 9 27, 69003, 6399, 83500, 79205 #### [facility] of [address], [address] [place] [address] Road Design Draftsperson: Otto Conley MD REACTIVE LYMPHOCYTES Normal [facility] Comment on above: Performed By: #### 9 27, 75799, 6399, 22988, 30390 #### [facility] of [address], [address] [place] [address] Road Design Draftsperson: Otto Conley MD RED BLOOD CELL COUNT Normal [facility] Comment on above: Performed By: #### 9 27, 76688, 6399, 44318, 04310 #### [facility] of [address], [address] [place] [address] Road Design Draftsperson: Otto Conley MD WHITE BLOOD CELL COUNT Normal [facility] Comment on above: Performed By: #### 9 27, 01947, 6399, 11384, 07509 #### [facility] of [address], [address] [place] [address] Road Design Draftsperson: Otto Conley MD COMPREHENSIVE METABOLIC PANE L W/ANION GAPon 05-22-2024 Albumin [Mass/Vol] 4.7 g/dL Normal 3.6-5.1 [facility] Comment on above: Performed By: #### 9 27, 84030, 6399, 42747, 64814 #### [facility] of [address], [address] [place] [address] Road Design Draftsperson: Otto Conley MD ALP [Catalytic activity/Vol] 80 U/L Normal 37-153 [facility] Comment on above: Performed By: #### 9 27, 38341, 6399, 11845, 46544 #### [facility] of [address] , [address] [place] [address] Road Design Draftsperson: Otto Conley MD ALT [Catalytic activity/Vol] 13 U/L Normal 6-29 [facility] Comment on above: Performed By: #### 9 27, 80386, 6399, 84133, 98713 #### [facility] [place] [address] [address] Design Draftsperson: Otto Conley MD AST [Catalytic activity/Vol] 16 U/L Normal 10-35 [facility] Comment on above: Performed By: #### 9 , 55778, 6399, 45710, 94244 #### [facility] [place] [address] [address] Design Draftsperson: Otto Conley MD Bilirubin [Mass/Vol] 0.6 mg/dL Normal 0.2-1.2 [facility] Comment on above: Performed By: #### 9 , 96394, 6399, 88116, 92605 #### [facility] [place] [address] [address] Design Draftsperson: Otto Conley MD Calcium [Mass/Vol] 9.3 mg/dL Normal 8.6-10.4 [facility] Comment on above: Performed By: #### 9 , 98099, 6399, 45053, 60069 #### [facility] [place] [address] [address] Design Draftsperson: Otto Conley MD Chloride [Moles/Vol] 100 mmol/L Normal 98-110 [facility] Comment on above: Performed By: #### 9 , 14220, 6399, 05449, 07001 #### [facility] [place] [address] [address] Design Draftsperson: Otto Conley MD CO2 [Moles/Vol] 28 mmol/L Normal 20-32 [facility] Comment on above: Performed By: #### 9 27, 56657, 6399, 13828, 21675 #### [facility] [place] [address] [address] Design Draftsperson: Otto Conley MD Creatinine [Mass/Vol] 0.56 mg/dL Normal 0.50-1.[address] [facility] Comment on above: Performed By: #### 9 27, 62451, 6399, 20100, 73859 #### [facility] [place] [address] [address] Design Draftsperson: Otto Conley MD ELECTROLYTE BALANCE 8 mmol/L (calc) Normal 7-17 [facility] Comment on above: Performed By: #### 9 27, 11934, 6399, 85651, 57596 #### [facility] [place] [address] [address] Design Draftsperson: Otto Conley MD GFR/1.73 sq M.predicted among non-blacks MDRD (S/P/Bld) [Vol rate/Area] 111 mL/min/{1.73_m2} Normal > OR = 60 Q [facility] Comment on above: Performed By: #### 9 , 74228, 6399, 42987, 09158 #### [facility] [place] [address] [address] Design Draftsperson: Otto Conley MD Glucose [Mass/Vol] 98 mg/dL Normal 65-99 [facility] Comment on above: Result Comment: Fasting reference interval Performed By: #### 9 27, 87252, 6399, 77833, 73362 #### [facility] [place] [address] [address] Design Draftsperson: Otto Conley MD Potassium [Moles/Vol] 4.1 mmol/L Normal 3.5-5.[address] [facility] Comment on above: Performed By: #### 9 , 44188, 6399, 00794, 02597 #### [facility] [place] [address] [address] Design Draftsperson: Otto Conley MD Protein [Mass/Vol] 6.9 g/dL Normal 6.1-8.1 [facility] Comment on above: Performed By: #### 9 , 62497, 6399, 70714, 00343 #### [facility] of [address] [place] [address] Road Design Draftsperson: Otto Conley MD Sodium [Moles/Vol] 136 mmol/L Normal 135-146 [facility] Comment on above: Performed By: #### 9 27, 34203, 6399, 13580, 03515 #### [facility] [address], [address] [place] [address] Road Design Draftsperson: Otto Conley MD Urea nitrogen [Mass/Vol] 12 mg/dL Normal 7-25 [facility] Comment on above: Performed By: #### 9 27, 43706, 6399, 53433, 52849 #### [facility] [place] [address] [address] Design Draftsperson: Otto Conley MD LIPID PANEL WITH REFLEX TO D IRECT LDLon 05-22-2024 Cholesterol [Mass/Vol] 208 mg/dL High <200 [facility] Comment on above: Order Comment: FASTI NG:YES FASTING: YES Performed By: #### 9 27, 80584, 6399, 58568, 19203 #### [facility] [address], [address] [place] [address] Road Design Draftsperson: Otto Conley MD Cholesterol in HDL [Mass/Vol] 94 mg/dL Normal > OR = 50 [facility] Comment on above: Order Comment: FASTI NG:YES FASTING: YES Performed By: #### 9 27, 91921, 6399, 30504, 79680 #### [facility] [place] [address] [address] Design Draftsperson: Otto Conley MD Cholesterol in LDL [Mass/Vol] 97 mg/dL Normal [facility] Comment on above: Order Comment: FASTI NG:YES FASTING: YES Result Comment: Refe rence range: <100 Desirable range <100 mg/dL for primary prevention; <70 mg/dL for patients with CHD or diabetic patients with > or = 2 CHD risk factors. LDL-C is now calculated using the Austin calculation, which is a validated novel method providing better accuracy than the Friedewald equation in the estimation of LDL-C. Felipe SOTELO et al. DUNIA. 2013;310(19): 8527-2377 (http://education.[employer].Fortressware/faq/FAL093) Performed By: #### 9 27, 18345, 6399, 39644, 53051 #### [facility] [address], [address] [place] [address] Road Design Draftsperson: Otto Conley MD Cholesterol.total/Cholest conchita in HDL [Mass ratio] 2.2 {ratio} Normal <5.0 [facility] Comment on above: Order Comment: FASTI NG:YES FASTING: YES Performed By: #### 9 27, 67179, 6399, 35687, 35829 #### [facility] [place] [address] [address] Design Draftsperson: Otto Conley MD NON HDL CHOLESTEROL 114 mg/dL (calc) Normal <130 [facility] Comment on above: Order Comment: FASTI NG:YES FASTING: YES Result Comment: For patients with diabetes plus 1 major ASCVD risk factor, treating to a non-HDL-C goal of <100 mg/dL (LDL-C of <70 mg/dL) is considered a therapeutic option. Performed By: #### 9 27, 97005, 6399, 63400, 94970 #### [facility] [place] [address] [address] Design Draftsperson: Otto Conley MD Triglyceride [Mass/Vol] 79 mg/dL Normal <150 [facility] Comment on above: Order Comment: FASTI NG:YES FASTING: YES Performed By: #### 9 27, 30384, 6399, 93827, 08914 #### [facility] [address], [address] [place] [address] Road Design Draftsperson: Otto Conley MD VITAMIN B12on 05-22-2024 Cobalamin (Vitamin B12) [Mass/Vol] 838 pg/mL Normal 200-1100 [facility] Comment on above: Performed By: #### 9 27, 83755, 6399, 19304, 60455 #### [facility] [address], [address] [place] [address] [address] Design Draftsperson: Otto Conley MD VITAMIN D,25-OH,TOTAL,IAon 0 05-22-2024 VITAMIN D,25-OH,TOTAL,IA 34 ng/mL Normal 30-100 [facility] Comment on above: Result Comment: [place] min D Status 25-OH Vitamin D: Deficiency: <20 ng/mL Insufficiency: 20 - 29 ng/mL Optimal: > or = 30 ng/mL For 25-OH Vitamin D testing on patients on D2-supplementation and patients for whom quantitation of D2 and D3 fractions is required, the QuestAssureD(TM) 25-OH VIT D, (D2,D3), LC/MS/MS is recommended: order code 71718 (patients >2yrs). See Note 1 Note 1 For additional information, please refer to http://education.Sosedi/faq/XWC178 (This link is being provided for informational/ educational purposes only.) Performed By: #### 9 27, 55110, 3099, 15315, 05272 #### [facility] [address] , [address] [place] [phone] Road Design Draftsperson: Otto Conley MD Urinalysis macro (dipstick) panel (U)on 05-21-2024 Bilirubin Ql (U) Negative Negative [facility] Glucose Ql (U) Negative Normal, Negative mg/dL [facility] Hemoglobin Ql (U) Negative Negative [facility] Interpretation and review of laboratory results Normal [facility] Ketones Ql (U) Negative Negative mg/dL [facility] Leukocyte esterase Test strip Ql (U) Negative Negative [facility] Nitrite Ql (U) Negative Negative [facility] pH (U) 6.5 [pH] 5.0 - 7.[address] [facility] Protein Ql (U) Negative Negative mg/dL [facility] Specific gravity (U) [Rel density] 1.02 1.005 - 1.[address] [facility] Urobilinogen Qn (U) <2.0 <2.0, 0. 2, Normal, Negative, 1.0, 2.0, <1.0 mg/dL [facility] Magnetic resonance imaging r eportOrdered By: Jaswant Gallardo on 05-15-2024 Study report [facility] Imaging Services [address] [place] [address] Upper Ext/No Jt/ wo MR#: [id number] Acct: [id number] Name: TERESA CASH Rep #: [id number] : 1975 F 48 From: Leo Gallardo DO PCP: LAMAR Scales Status: REG CLI Study:Upper Ext/No Jt/ wo Date of Exam: 05/12/24 Exam# [id number] Ordering Dr: VANIA GUNTER EXAM: Routine noncontrast MRI of the left hand. CLINICAL HISTORY: Pain at patton aspect of 4th metacarpal. COMPARISON: None. TECHNIQUE: Multi-planar and multi-sequence noncontrast MR imaging of the left hand. FINDINGS: Normal bone marrow signal. Tendons and soft tissue are unremarkable. Joints appear normal. No ganglion cyst is appreciated. MRI/Upper Ext/No Jt/ wo IMPRESSION: Normal exam. Reading Location: [facility] CC: VANIA GUNTER; ROMAN-Amos Whitaker ~ Lead Technician: Signed [facility] Upper Ext/No Jt/ woon 2024 Upper Ext/No Jt/ wo [facility] Imaging Services [address] [place] [address] Upper Ext/No Jt/ wo MR#: [id number] Acct: [id number] Name: TERESA CASH Rep #: [id number] : 1975 F 48 From: Jaswant Gallardo DO PCP: LAMAR Scales Status: REG CLI Study: Upper Ext/No Jt/ wo Date of Exam: 05/12/24 Exam# [id number] Ordering Dr: VANIA GUNTER EXAM: Routine noncontrast MRI of the left hand. CLINICAL HISTORY: Pain at patton aspect of 4th metacarpal. COMPARISON: None. TECHNIQUE: Multi-planar and multi-sequence noncontrast MR imaging of the left hand. FINDINGS: Normal bone marrow signal. Tendons and soft tissue are unremarkable. Joints appear normal. No ganglion cyst is appreciated. MRI/Upper Ext/No Jt/ wo IMPRESSION: Normal exam. Reading [facility] CC: VANIA GUNTER; LAMAR Whitaker Lead Technician: Signed Normal [facility] CULTURE, URINE, ROUTINEon Bacteria identified Cx Nom (U) SEE NOTE Normal [facility] Comment on above: Result Comment: CULTURE, URINE, ROUTINE Micro Number: [id number] Test Status: Final Specimen Source: Urine Specimen Quality: Adequate Result: No Growth Performed By: #### 9 27, 71733, 6399, 62321, 41711 #### [facility] of [address] , [address] [place] [address] Road Design Draftsperson: Otto Conley MD URINALYSIS, COMPLETEon 04-07 Appearance (U) CLEAR Normal CLEAR [facility] Comment on above: Performed By: #### 9 27, 03509, 6399, 72689, 59094 #### [facility] [place] [address] [address] , [address] [place] [address] Road Design Draftsperson: Otto Conley MD BACTERIA NONE SEEN Normal NONE SEEN [facility] Comment on above: Performed By: #### 9 27, 84767, 6399, 73253, 37146 #### [facility] [place] [address] [address] , [address] [place] [address] Road Design Draftsperson: Otto Conley MD Bilirubin Ql (U) Negative Normal NEGATIVE [facility] Comment on above: Performed By: #### 9 27, 52934, 6399, 03077, 18972 #### [facility] [place] [address] [address] , [address] [place] [address] Road Design Draftsperson: Otto Conley MD Color (U) YELLOW Normal YELLOW [facility] Comment on above: Performed By: #### 9 27, 76016, 6399, 71706, 50993 #### [facility] [place] [address] [address] , [address] [place] [address] Road Design Draftsperson: Otto Conley MD Glucose Ql (U) Negative Normal NEGATIVE [facility] Comment on above: Performed By: #### 9 27, 55775, 6399, 60268, 12966 #### [facility] [place] [address] [address] Design Draftsperson: Otto Conley MD HYALINE CAST NONE SEEN Normal NONE SEEN [facility] Comment on above: Performed By: #### 9 27, 68772, 6399, 94142, 09688 #### [facility] [place] [address] [address] Design Draftsperson: Otto Conley MD Ketones Ql (U) Negative Normal NEGATIVE [facility] Comment on above: Performed By: #### 9 27, 40308, 6399, 60816, 27777 #### [facility] [place] [address] [address] Design Draftsperson: Otto Conley MD Leukocyte esterase Test strip Ql (U) Negative Normal NEGATIVE [facility] Comment on above: Performed By: #### 9 27, 41312, 6399, 93306, 18612 #### [facility] [place] [address] [address] Design Draftsperson: Otto Conley MD Nitrite Ql (U) Negative Normal NEGATIVE [facility] Comment on above: Performed By: #### 9 27, 50307, 6399, 76902, 66081 #### [facility] [place] [address] [address] Design Draftsperson: Otto Conley MD NOTE Normal [facility] Comment on above: Result Comment: This urine was analyzed for the presence of WBC, RBC, bacteria, casts, and other formed elements. Only those elements seen were reported. Performed By: #### 9 27, 36737, 6399, 06407, 59737 #### [facility] [place] [address] [address] Design Draftsperson: Otto Conley MD OCCULT BLOOD Negative Normal NEGATIVE [facility] Comment on above: Performed By: #### 9 27, 10334, 6399, 44022, 50503 #### [facility] of [address], [address] [place] [address] Road Design Draftsperson: Otto Conley MD pH (U) 6.5 [pH] Normal 5.0-8.0 [facility] Comment on above: Performed By: #### 9 27, 58204, 6399, 17591, 74260 #### [facility] of [address], [address] [place] [address] Road Design Draftsperson: Otto Conley MD Protein Ql (U) Negative Normal NEGATIVE [facility] Comment on above: Performed By: #### 9 27, 51711, 6399, 47619, 04056 #### [facility] [place] [address] [address] Design Draftsperson: Otto Conley MD RBC NONE SEEN Normal < OR = 2 [facility] Comment on above: Performed By: #### 9 27, 53198, 6399, 89710, 98651 #### [facility] [place] [address] [address] Design Draftsperson: Otto Conley MD Specific gravity (U) [Rel density] 1.007 Normal 1.001-1.035 [facility] Comment on above: Performed By: #### 9 27, 07268, 6399, 67436, 23292 #### [facility] [place] [address] [address] Design Draftsperson: Otto Conley MD SQUAMOUS EPITHELIAL CELLS NONE SEEN Normal < OR = 5 [facility] Comment on above: Performed By: #### 9 27, 98371, 6399, 15533, 34011 #### [facility] [place] [address] [address] Design Draftsperson: Otto Conley MD WBC NONE SEEN Normal < OR = 5 [facility] Comment on above: Performed By: #### 9 27, 24730, 6399, 98489, 63330 #### [facility] [place] [address] [address] Design Draftsperson: Otto Conley MD COMPREHENSIVE METABOLIC PANE L W/ANION GAPon 04-06-2024 Albumin [Mass/Vol] 4.7 g/dL Normal 3.6-5.1 [facility] Comment on above: Performed By: #### 9 27, 78259, 6399, 19800, 39267 #### [facility] [place] [address] [address] Design Draftsperson: Otto Conley MD ALP [Catalytic activity/Vol] 76 U/L Normal 37-153 [facility] Comment on above: Performed By: #### 9 27, 14386, 6399, 84971, 56841 #### [facility] [place] [address] [address] Design Draftsperson: Otto Conley MD ALT [Catalytic activity/Vol] 14 U/L Normal 6-29 [facility] Comment on above: Performed By: #### 9 27, 72582, 6399, 70689, 58510 #### [facility] [place] [address] [address] Design Draftsperson: Otto Conley MD AST [Catalytic activity/Vol] 16 U/L Normal 10-35 [facility] Comment on above: Performed By: #### 9 27, 14980, 6399, 93144, 12380 #### [facility] [place] [address] [address] Design Draftsperson: Otto Conley MD Bilirubin [Mass/Vol] 0.3 mg/dL Normal 0.2-1.2 [facility] Comment on above: Performed By: #### 9 27, 60625, 6399, 31903, 23005 #### [facility] [place] [address] [address] Design Draftsperson: Otto Conley MD Calcium [Mass/Vol] 9.6 mg/dL Normal 8.6-10.4 [facility] Comment on above: Performed By: #### 9 , 10673, 6399, 63535, 24489 #### [facility] [place] [address] [address] Design Draftsperson: Otto Conley MD Chloride [Moles/Vol] 102 mmol/L Normal 98-110 [facility] Comment on above: Performed By: #### 9 27, 21380, 6399, 41322, 35663 #### [facility] [place] [address] [address] Design Draftsperson: Otto Conley MD CO2 [Moles/Vol] 29 mmol/L Normal 20-32 [facility] Comment on above: Performed By: #### 9 27, 95290, 6399, 62191, 99304 #### [facility] [place] [address] [address] Design Draftsperson: Otto Conley MD Creatinine [Mass/Vol] 0.53 mg/dL Normal 0.50-1.[address] [facility] Comment on above: Performed By: #### 9 27, 45485, 6399, 62409, 67766 #### [facility] [place] [address] [address] Design Draftsperson: Otto Conley MD ELECTROLYTE BALANCE 9 mmol/L (calc) Normal 7-17 [facility] Comment on above: Performed By: #### 9 27, 19606, 6399, 12444, 63141 #### [facility] [place] [address] [address] Design Draftsperson: Otto Conley MD GFR/1.73 sq M.predicted among non-blacks MDRD (S/P/Bld) [Vol rate/Area] 113 mL/min/{1.73_m2} Normal > OR = 60 [facility] Comment on above: Performed By: #### 9 27, 36479, 6399, 24693, 14715 #### [facility] [place] [address] [address] Design Draftsperson: Otto Conley MD Glucose [Mass/Vol] 98 mg/dL Normal 65-99 [facility] Comment on above: Result Comment: Fasting reference interval Performed By: #### 9 27, 72446, 6399, 45770, 29673 #### [facility] [place] [address] [address] Design Draftsperson: Otto Conley MD Potassium [Moles/Vol] 3.9 mmol/L Normal 3.5-5.3 [facility] Comment on above: Performed By: #### 9 27, 47696, 6399, 11319, 71934 #### [facility] [address], [address] [place] [address] Road Design Draftsperson: Otto Conley MD Protein [Mass/Vol] 6.7 g/dL Normal 6.1-8.1 [facility] Comment on above: Performed By: #### 9 27, 53525, 6399, 64548, 80139 #### [facility] [place] [address] [address] Design Draftsperson: Otto Conley MD Sodium [Moles/Vol] 140 mmol/L Normal 135-146 [facility] Comment on above: Performed By: #### 9 27, 30849, 6399, 85213, 34503 #### [facility] [place] [address] [address] Design Draftsperson: Otto Conley MD Urea nitrogen [Mass/Vol] 10 mg/dL Normal 7-25 [facility] Comment on above: Performed By: #### 9 27, 47229, 6399, 64149, 96749 #### [facility] [place] [address] [address] Design Draftsperson: Otto Conlye MD HEMOGLOBIN A1con 04-06-2024 HEMOGLOBIN A1c 5.7 % of total Hgb High <5.7 Qu est Diagnostics Comment on above: Result Comment: For someone without known diabetes, a hemoglobin A1c value between 5.7% and 6.4% is consistent with prediabetes and should be confirmed with a follow-up test. For someone with known diabetes, a value <7% indicates that their diabetes is well controlled. A1c targets should be individualized based on duration of diabetes, age, comorbid conditions, and other considerations. This assay result is consistent with an increased risk of diabetes. Currently, no consensus exists regarding use of hemoglobin A1c for diagnosis of diabetes for children. Performed By: #### 9 58, 10275, 0063, 42629, 51509 #### [facility] [address] [facility], [address] [place] [address] Road Design Draftsperson: Otto Conley MD XR HAND LEFT 3+ VIEWS (STAND MAURY)on 04-05-2024 XR HAND LEFT 3+ VIEWS (STANDARD) EXAMINATION: XR HAND LEFT 3+ VIEWS (STANDARD) 04/05/2024 2:57 pm HISTORY: ORDERING SYSTEM PROVIDED HISTORY: Pain, TECHNOLOGIST PROVIDED HISTORY: Illness/Other Reason for exam: Lump on the palmar left hand since November without injury Cancer History: unk Surgery, RadiationHistory: unk Encounter Type: Initial Additional signs and symptoms: Lump at the level of the arrow on the 2nd lateral image ORDERING SYSTEM PROVIDED DIAGNOSIS CODES: R52 Pain COMPARISON: 12/27/2014 FINDINGS: No acute displaced fracture or dislocation is evident. No bony erosive or resorptive changes identified. Soft tissues are unremarkable. A discrete soft tissue mass is not confidently identified. IMPRESSION: No acute osseous abnormality Workstation ID: [id number] Dictated by: ELLIS FRANCIS on FriApr 08, 2024 10:33:33 AM EST Transcribed by: ELLIS FRANCIS on FriApr 08, 2024 10:33:33 AM EST Finalized by: ELLIS FRANCIS on FriApr 08, 2024 10:33:33 AM EST Normal [facility] Comment on above: Order Comment: Injur y/Trauma or Illness?:Illness/Other How long have you had these symptoms (acute/chronic)?:Acute Reason for exam?:Lump on the palmar left hand since November without injury History of cancer?:unk Surgeries, chemotherapy, or radiation?:unk Type of Exam?:Initial Additional signs and symptoms?:Lump at the level of the arrow on the 2nd lateral image CNOVon 04-01-2024 CNOV Office Visit (SPNMED ) TERESA CASH ([id number]) 1975 F Date Time Provider Department 04/01/24 10:20 AM YUNG FRANCIS SPNMNIRMAL During your visit today, we recorded the following information about you: Pulse Blood pressure Weight Height 68/minute 144/88 76.8 kg 1.727 m Yung Francis PA-C 04/01/2024 10:59 AM Signed Yung Francis PA-C [facility] [address] [address] 04/01/2024 ASSESSMENT AND PLAN: Assessment : Encounter Diagnosis ICD-10-CM 1. Chronic left shoulder pain M25.512 CONSULT TO ORTHOPAEDICS G89.29 CONSULT TO PHYSICAL THERAPY 2. Cervical spondylosis without myelopathy M47.812 CONSULT TO PHYSICAL THERAPY Discussion: Ms. Cash is a pleasant 48-year-old female here for evaluation of neck pain and LEFT shoulder pain. This is chronic and has gone on for at least 3 years in the left shoulder and at least 2 years in the neck itself. She had x-rays done outside of [facility] in February but the films are not available for review. Reports only can be seen. She had been hospitalized for kidney failure in February. She takes tizanidine on a nightly basis to help with posttraumatic stress sleep issues. She has tried massage therapy, acupuncture, dry needling, soft cervical collar, cervical pillow, and cervical traction She describes primarily sharp neck pain and tightness with motion but she also describes diminished LUE range of motion in the shoulder itself. She describes shoulder pain on the deltoid portion of her shoulder EXAM Highlights: She has essentially normal neurologic exam today regarding mobilization, gait, stance, balance, sensation, reflexes throughout upper extremities. There is mild strength deficit noted in right triceps. She has age appropriate mild diminishment of cervical motion but she does have appreciable crepitus with motion. There is diminishment of shoulder motion on the left side and reproduction of lateral shoulder pain with that motion. IMAGING: Her cervical CT report indicated fairly severe DDD C3 through C7. There was some foraminal narrowing on the LEFT at C3-4 and this may possibly explain some of her symptoms along the lateral aspect of her shoulder. SUMMARY/PLAN: There is primarily a set of mechanical type symptoms without neurologic deficit. We would hold off on aggressive measures for treatment. She has nearly exhausted conservative treatment measures that can be done on her own at home I would try some supervised PT next and she could consider care mgr or osteopathic neuromuscular treatment in the future as well. I think she could benefit from further evaluation from orthopedics especially regarding her shoulder motion deficit issues. Her LEFT triceps weakness does not correlate with her C3-4 foraminal stenosis. Patient indicates that she has tried to diminish motion and exercise of her arm secondary to her shoulder pain and this may account for mild weakness noted below Plan : REFERAL FOR SERVICES: -Physical therapy will be instituted. -Referral to Orthopaedic Surgery for LEFT shoulder evaluation ACTIVITY RECOMMENDATIONS: -The patient is encouraged to avoid bed rest and maintain normal activity. -The patient is encouraged to exercise regularly as tolerated. FOLLOW-UP: -The patient is instructed to return as needed. ADDITIONAL DISCUSSION: -We discussed the difference between hurt vs harm as it relates to chronic pain. This document has been created with the use of voice recognition technology. It may contain inaccuracies: (e.g. misspellings, inaccurate syntax or word sense) that have escaped review. Time spent: 47 minutes today with this patient visit. This includes [id number] time, review of chart records regarding conservative care history, spine-pertinent imaging, and communication/care coordination with referring provider, problem-specific history-taking and counseling/education regarding treatment options. cc: SELF Phone: N/A Fax: Results of consultation to be transmitted via electronic medical record for those providers who practice within [facility] or with access to [employer] via [employer], or via letter. ##################### ##################### ##################### ######### CHIEF COMPLAINT: Patient is here for the neck pain, and left shoulder. Has this neck pain for 2 years and shoulder pain for 3 years- and it is getting worse. Level of the pain is at 2/10. Has sharp pain with movements. Has throbbing pain which is going up to the neck(behind the ear) from the left shoulder. Has a lot of tightness. HPI: See "Discussiuon" above History of bowel or bladder dysfunction (not IBS or constipation): No History of previous spin (more content not included)... Normal [facility] CT CERVICAL SPINE WITHOUT CO NTRASTon 02-21-2024 CT CERVICAL SPINE WITHOUT CONTRAST EXAMINATION: CT CERVICAL SPINE WITHOUT CONTRAST HISTORY: ORDERING SYSTEM PROVIDED HISTORY: Neck pain, acute, no red flags, TECHNOLOGIST PROVIDED HISTORY: Illness/Other Reason for exam: neck pain Encounter Type: Initial Additional signs and symptoms: headache ORDERING SYSTEM PROVIDED DIAGNOSIS CODES: COMPARISON: None TECHNIQUE: CT cervical spine without IV contrast. Coronal and sagittal reformations were performed. Dose reduction techniques were achieved by using automated exposure control and/or adjustment of mA and/or kV according to patient size and/or use of iterative reconstruction technique. FINDINGS: The vertebral body heights are preserved. Mild reversal of the normal cervical lordosis. No acute fracture or subluxation. Moderate to severe loss of disc height at C3-4 with moderate to severe left and moderate right neural foraminal stenosis at this level. Twle-lm-abildlkt loss of disc height at C4-5 with mild to moderate bilateral neural foraminal stenosis at this level. Moderate disc space narrowing at C5-6 without significant central canal or neural foraminal stenosis at this level. Moderate to severe disc space narrowing at C6-7 with moderate left neural foraminal stenosis at this level. The visualized lung apices are unremarkable. Visualized soft tissue structures are unremarkable. IMPRESSION: No acute fracture or subluxation. Multilevel degenerative changes as described. Workstation ID: [id number] Dictated by: MANOLO BRUMFIELD on Sat Feb 21, 2024 11:24:59 AM EST Transcribed by: MANOLO BRUMFIELD on Sat Feb 21, 2024 11:24:59 AM EST Finalized by: MANOLO BRUMFIELD on [facility] Feb 21, 2024 11:24:59 AM EST [facility] Comment on above: Order Comment: Injur y/Trauma or Illness?:Illness/Other How long have you had these symptoms (acute/chronic)?:Acute Reason for exam?:neck pain Type of Exam?:Initial Additional signs and symptoms?:headache CT HEAD OR BRAIN WITHOUT CON TRASTon 02-21-2024 CT HEAD OR BRAIN WITHOUT CONTRAST EXAMINATION: CT HEAD OR BRAIN WITHOUT CONTRAST HISTORY: ORDERING SYSTEM PROVIDED HISTORY: Headache, chronic, new features or increased frequency; Headache, new or worsening (Age >= 50y), TECHNOLOGIST PROVIDED HISTORY: Illness/Other Reason for exam: headache since Friday Encounter Type: Initial Additional signs and symptoms: n ORDERING SYSTEM PROVIDED DIAGNOSIS CODES: COMPARISON: 05/21/2015 TECHNIQUE: Unenhanced helical imaging was acquired from skull base to vertex. Dose reduction techniques were achieved by using: automated exposure control and/or adjustment of mA and /or kV according to patient size and/or use of iterative reconstruction technique. FINDINGS: There is no evidence of mass, mass effect, midline shift or hemorrhage. The ventricles, sulci and basilar cisterns are within normal limits for the patient's age. Mild bifrontal atrophy. The osseous structures are intact. Visualized paranasal sinuses are clear. Visualized mastoid air cells are pneumatized. Visualized soft tissues are unremarkable. IMPRESSION: No acute intracranial findings. Workstation ID: [id number] Dictated by: MANOLO BRUMFIELD on [facility] Feb 21, 2024 11:21:37 AM EST Transcribed by: MANOLO BRUMFIELD on [facility] Feb 21, 2024 11:21:37 AM EST Finalized by: MANOLO BRUMFIELD on [facility] Feb 21, 2024 11:21:37 AM EST [facility] Comment on above: Order Comment: Injur y/Trauma or Illness?:Illness/Other How long have you had these symptoms (acute/chronic)?:Acute Reason for exam?:headache since Friday Type of Exam?:Initial Additional signs and symptoms?:n ED Prov Noteon 02-21-2024 ED Prov Note ED PROVIDER NOTE [facility] EM[facility] NAME: Teresa Cash AGE: 48 y.o. : 1975 VISIT DATE: 02/21/2024 CSN: [id number] PCP: Galilea Whitaker, CASEWORKER Chief Complaint Patient presents with Headache Chief complaint headache History of present illness 48-year-old female is here with a headache on the left side originating in the proximal region rating to the left side with eye discomfort. She denies any loss of feeling in the arms or legs or chest pain chest pressure palpitations diplopia dysarthria dysphagia focal motor weakness. Or any abdominal pain. [facility] ED Past Medical History: Diagnosis Date Anemia Arrhythmia [...] CYST REMOVAL KNEE SURGERY Right 03/25/2018 Dr. Ramasy TONSILLECTOMY as an Family History Problem Relation [...] X3 in 2018 Breast cancer Neg Hx Social History Socioeconomic History Marital status: Tobacco Use Smoking status: Never Smokeless tobacco: Never Vaping Use Vaping status: Never Used Substance and Sexual Activity Alcohol use: Yes Alcohol/week: 5.0 standard drinks of alcohol Types: 5 Glasses of wine per week Drug use: Never Sexual activity: Yes Partners: Male control/protection: None Social Drivers of Health Financial Resource Strain: Low Risk (11/19/2022) Overall Financial Resource Strain (CARDIA) Difficulty of Paying Living Expenses: Not very hard Food Insecurity: No Food Insecurity (11/21/2023) Hunger Vital Sign Worried About Running Out of Food in the Last Year: Never true Ran Out of Food in the Last Year: Never true Transportation Needs: No Transportation Needs (11/21/2023) PRAPARE - Transportation Lack of Transportation (Medical): No Lack of Transportation (Non-Medical): No Physical Activity: Sufficiently Active (11/19/2022) Exercise Vital Sign Days of Exercise per Week: 4 days Minutes of Exercise per Session: 40 min Stress: No Stress Concern Present (11/19/2022) [employer] [place] [employer] - Occupational Stress Questionnaire Feeling of Stress : Not at all Social Connections: Unknown (11/21/2023) Social Connection and Isolation Panel [NHANES] Active Member of Clubs or Organizations: No Attends Club or Organization Meetings: Never Housing Stability: Unknown (11/19/2022) Housing Stability Vital Sign Unable to Pay for Housing in the Last Year: No Unstable Housing in the Last Year: No Previous Medications Medication Sig albuterol (Ventolin HFA) 90 mcg/actuation inhaler Inhale 2 (two) puffs every 6 (six) hours as needed for wheezing . buPROPion (WELLBUTRIN XL) 150 MG 24 hr tablet Take 3 (three) tablets (450 mg total) by mouth daily IN THE MORNING . cetirizine (ZYRTEC) 10 MG tablet Take 1 (one) tablet (10 mg total) by mouth every evening . cholecalciferol, vitamin D3, 5,000 unit Tab tablet Take by mouth daily . cyanocobalamin (B-12) 1000 MCG tablet Take 5 (five) tablets (5,000 mcg total) by mouth daily . ivermectin 1 % Crea Apply topically . meclizine (ANTIVERT) 25 mg tablet Take 1 (one) tablet (25 mg total) by mouth 3 (three) times a day as needed . olmesartan (BENICAR) 40 MG tablet Take 1 (one) tablet (40 mg total) by mouth daily . pantoprazole (PROTONIX) 20 MG tablet Take 1 (one) tablet (20 mg total) by mouth daily . polyethylene glycol (GLYCOLAX) 17 gram/dose powder Take 17 (seventeen) g by mouth daily . spironolactone (ALDACTONE) 50 MG tablet TAKE ONE TABLET ONCE DAILY AT NIGHT WITH A FULL GLASS OF WATER. tiZANidine (Zanaflex) 4 MG tablet Take up to 3 (three) tablets (12 mg total) by mouth at bedtime. Allergies Allergen Reactions Apple Itching Erythromycin GI Intolerance Influenza Virus Vaccines GI Intolerance Maple Flavor Itching Pork Derived (Porcine) Itching Amoxicillin Rash Black (more content not included)... [facility] POC BASIC METABOLIC PANEL - Marely 02-21-2024 Chloride [Moles/Vol] 106 mmol/L Normal 98-108 [facility] Comment on above: Order Comment: [facility] Services has implemented the eGFR calculation approach that does not have a coefficient for race that conforms to the NKF-ASN Task Force Recommendations. CO2 [Moles/Vol] 32 mmol/L Normal 21-32 [facility] Comment on above: Order Comment: [facility] Laboratory [facility] has implemented the eGFR calculation approach that does not have a coefficient for race that conforms to the NKF-ASN Task Force Recommendations. Creatinine [Mass/Vol] 0.65 mg/dL Normal 0.40-1.10 [facility] Comment on above: Order Comment: [facility] Laboratory [facility] has implemented the eGFR calculation approach that does not have a coefficient for race that conforms to the NKF-ASN Task Force Recommendations. Glucose [Mass/Vol] 89 mg/dL Normal 65-99 [facility] Comment on above: Order Comment: [facility] Laboratory [facility] has implemented the eGFR calculation approach that does not have a coefficient for race that conforms to the NKF-ASN Task Force Recommendations. POC GFR 107 mL/min/1.73 m2 Normal >=60 [facility] Comment on above: Order Comment: [facility] Laboratory [facility] has implemented the eGFR calculation approach that does not have a coefficient for race that conforms to the NKF-ASN Task Force Recommendations. Result Comment: Ivet mated GFR was calculated using the 2020 CKD-EPI creatinine equation. POC IONIZED CALCIUM 5.4 mg/dL High 4.5-5.3 [facility] Comment on above: Order Comment: [facility] Laboratory [facility] has implemented the eGFR calculation approach that does not have a coefficient for race that conforms to the NKF-ASN Task Force Recommendations. Potassium [Moles/Vol] 3.3 mmol/L Low 3.5-5.1 [facility] Comment on above: Order Comment: [facility] Laboratory [facility] has implemented the eGFR calculation approach that does not have a coefficient for race that conforms to the NKF-ASN Task Force Recommendations. Sodium [Moles/Vol] 145 mmol/L Normal 135-145 [facility] Comment on above: Order Comment: [facility] Laboratory [facility] has implemented the eGFR calculation approach that does not have a coefficient for race that conforms to the NKF-ASN Task Force Recommendations. Urea nitrogen [Mass/Vol] 6 mg/dL Low 8-25 [facility] Comment on above: Order Comment: [facility] Services has implemented the eGFR calculation approach that does not have a coefficient for race that conforms to the NKF-ASN Task Force Recommendations. POC CBC AND DIFFERENTIALon 0 02-21-2024 BASOPHILS ABSOLUTE COUNT 0.02 K/mcL Normal 0.00-0.30 [facility] Basophils/100 WBC (Bld) 0.3 % Normal [facility] Eosinophils (Bld) [#/Vol] 0.13 10*3/uL Normal 0.00-0.5 0 [facility] Eosinophils/100 WBC (Bld) 2.1 % Normal [facility] Erythrocyte distribution width (RBC) [Ratio] 11.5 % Low 11.6-14.8 [facility] Hematocrit (Bld) [Volume fraction] 37.7 % Normal 36.0-46.0 [facility] Hemoglobin (Bld) [Mass/Vol] 12.6 g/dL Normal 12.0-16.0 [facility] IG ABSOLUTE 0.00 K/mcL Normal 0.00-0.30 [facility] IG PERCENT 0.00 % Normal [facility] Comment on above: Result Comment: The IG parameter is the percentage of metamyelocytes, myelocytes and promyelocytes. An immature granulocyte count (IG) of 1% or more suggests the possibility of infection, an IG count of 3% is very likely related to an infection. Lymphocytes (Bld) [#/Vol] 1.79 10*3/uL Normal 0.90-4.0 0 [facility] Lymphocytes/100 WBC (Bld) 28.7 % Normal [facility] MCH (RBC) [Entitic mass] 32.2 pg Normal 26.0-34.0 [facility] MCV (RBC) [Entitic vol] 96.4 fL Normal 80.0-100.0 [facility] MEAN CORPUSCULAR HEMOGLOBIN CONC 33.4 g/dL Normal 31.0-37.0 [facility] Monocytes (Bld) [#/Vol] 0.67 10*3/uL Normal 0.30-0.90 [facility] Monocytes/100 WBC (Bld) 10.8 % Normal [facility] NEUTROPHILS ABSOLUTE COUNT 3.62 K/mcL Normal 1.70-7.00 [facility] Neutrophils/100 WBC (Bld) 58.1 % Normal [facility] Platelet mean volume (Bld) [Entitic vol] 9.5 fL Normal 9.4-12.4 [facility] Platelets (Bld) [#/Vol] 341 10*3/uL Normal 150-400 [facility] RBC (Bld) [#/Vol] 3.91 10*6/uL Low 4.00-5.20 [facility] WBC (Bld) [#/Vol] 6.23 10*3/uL Normal 4.50-11.00 [facility] ALBUMIN, RANDOM URINE W/CREA TININEon 02-19-2024 ALBUMIN, URINE 0.5 mg/dL Normal See Note: [facility] Comment on above: Order Comment: FASTI NG:NO FASTING: NO Result Comment: Refe rence Range: Reference Range Not established Performed By: #### 6 [id number] #### [facility] [address], [address] [place] [address] Road Design Draftsperson: Otto Conley MD ALBUMIN/CREATININE RATIO, RANDOM URINE 11 mg/g creat Normal <30 [facility] Comment on above: Order Comment: FASTI NG:NO FASTING: NO Result Comment: The ADA defines abnormalities in albumin excretion as follows: Albuminuria Category Result (mg/g creatinine) Normal to Mildly increased <30 Moderately increased 30-299 Severely increased > OR = 300 The ADA recommends that at least two of three specimens collected within a 3-6 month period be abnormal before considering a patient to be within a diagnostic category. Performed By: #### 6 517 #### [facility] [address], [address] [place] [address] Road Design Draftsperson: Otto Conley MD Creatinine (U) [Mass/Vol] 44 mg/dL Normal 20-275 [facility] Comment on above: Order Comment: FASTI NG:NO FASTING: NO Performed By: #### 6 517 #### [facility] [address], [address] [place] [address] Road Design Draftsperson: Otto Conley MD RENAL FUNCTION PANELon 02-18 Albumin [Mass/Vol] 4.5 g/dL Normal 3.6-5.1 [facility] Comment on above: Order Comment: FASTI NG:NOFASTING: NO Performed By: #### 9 27, 30133, 6399, 85797, 83412 #### [facility] [address] [place] [address] [address] Design Draftsperson: Otto Conley MD BUN/CREATININE RATIO SEE NOTE: Normal 6-22 [facility] t [facility] Comment on above: Order Comment: FASTI NG:NOFASTING: NO Result Comment: Not Reported: BUN and Creatinine are within reference range. Performed By: #### 9 27, 58911, 5299, 69862, 38884 #### [facility] [place] [address] [address] Design Draftsperson: Otto Conley MD Calcium [Mass/Vol] 9.7 mg/dL Normal 8.6-10.4 [facility] Comment on above: Order Comment: FASTI NG:NOFASTING: NO Performed By: #### 9 27, 60578, 6399, 76178, 48854 #### [facility] [address] [place] [address] [address] Design Draftsperson: Otto Conley MD Chloride [Moles/Vol] 101 mmol/L Normal 98-110 [facility] t [facility] Comment on above: Order Comment: FASTI NG:NOFASTING: NO Performed By: #### 9 27, 70630, 6999, 33221, 13729 #### [facility] [address] [place] [address] [address] Design Draftsperson: Otto Conley MD CO2 [Moles/Vol] 32 mmol/L Normal 20-32 [facility] Comment on above: Order Comment: FASTI NG:NOFASTING: NO Performed By: #### 9 27, 86975, 6399, 59613, 82173 #### [facility] [place] [address] [address] Design Draftsperson: Otto Conley MD Creatinine [Mass/Vol] 0.86 mg/dL Normal 0.50-1.[address] [facility] Comment on above: Order Comment: FASTI NG:NOFASTING: NO Performed By: #### 9 27, 81790, 6699, 34555, 33409 #### [facility] [place] [address] [address] Design Draftsperson: Otto Conley MD GFR/1.73 sq M.predicted among non-blacks MDRD (S/P/Bld) [Vol rate/Area] 82 mL/min/{1.73_m2} Normal > OR = 60 [facility] Comment on above: Order Comment: FASTI NG:NOFASTING: NO Performed By: #### 9 00, 89813, 2099, 87553, 46684 #### [facility] [place] [address] [address] Design Draftsperson: Otto Conley MD Glucose [Mass/Vol] 94 mg/dL Normal 65-139 [facility] Comment on above: Order Comment: FASTI NG:NOFASTING: NO Result Comment: Non-fasting reference interval Performed By: #### 9 , 73926, 8199, 76454, 56130 #### [facility] [place] [address] [address] Design Draftsperson: Otto Conley MD Phosphate [Mass/Vol] 4.1 mg/dL Normal 2.5-4.5 [facility] Comment on above: Order Comment: FASTI NG:NOFASTING: NO Performed By: #### 9 27, 77333, 8499, 39393, 18536 #### [facility] [place] [address] [address] Design Draftsperson: Otto Conley MD Potassium [Moles/Vol] 3.7 mmol/L Normal 3.5-5.[address] [facility] Comment on above: Order Comment: FASTI NG:NOFASTING: NO Performed By: #### 9 27, 84473, 8799, 82961, 56107 #### [facility] [place] [address] [address] Design Draftsperson: Otto Conley MD Sodium [Moles/Vol] 144 mmol/L Normal 135-146 [facility] Comment on above: Order Comment: FASTI NG:NOFASTING: NO Performed By: #### 9 27, 58182, 6399, 21556, 27553 #### [facility] [address] [place] [address], [address] [address] [address] Design Draftsperson: Otto Conley MD Urea nitrogen [Mass/Vol] 7 mg/dL Normal 7-25 [facility] Comment on above: Order Comment: FASTI NG:NOFASTING: NO Performed By: #### 9 27, [id number], 6399, 36103, 78423 #### [facility] [address], [address] [place] [place] [address] Road Design Draftsperson: Otto Conley MD ANCAon 02-17-2024 Atypical pANCA <1:20 Normal Neg:<1:20 [facility] Comment on above: Result Comment: The atypical pANCA pattern has been observed in a significant percentage of patients with ulcerative colitis, primary sclerosing cholangitis and autoimmune hepatitis. Performed By: #### L 501.5500 #### [facility] [address] [place], [address] Cytoplasmic Ab <1:20 Normal Neg:<1:20 [facility] Comment on above: Performed By: #### L 501.5500 #### [facility] [address] [place], [address] Perinuclear Ab. <1:20 Normal Neg:<1:20 [facility] Comment on above: Result Comment: The presence of positive fluorescence exhibiting P-ANCA or C-ANCA patterns alone is not specific for the diagnosis of Mikie's Granulomatosis (WG) or microscopic polyangiitis. Decisions about treatment should not be based solely on ANCA IFA results. The [employer] ANCA [employer] Consensus recommends follow up testing of positive sera with both IA- 3 and MPO-ANCA enzyme immunoassays. As many as 5% serum samples are positive only by EIA. Ref. AM J Clin Pathol 1999;111:507-513. Performed By: #### L 501.5500 #### [facility] [address] [place], [place], [address] Complement C3on 02-17-2024 COMP C3 108 mg/dL Normal 82-167 [facility] Comment on above: Performed By: #### L 501.5500 #### [facility] [address] [place], [place], [id number] Complement C4on 02-17-2024 COMPLEMENT, C4 24 mg/dL Normal 12-38 [facility] Comment on above: Performed By: #### L 501.5500 #### [facility] [address] [place], [address] Complement CH50on 02-17-2024 COMPLEMENT,CH50 38 U/mL Low >41 [facility] Comment on above: Result Comment: Age Male Female 1 - 30 days Not Estab. Not Estab. 31 days - 6 months >32 >20 7 months - 17 years >39 >39 >17 years >41 >41 NOTE: The adult (">17 years") reference interval range is used to flag abnormals on this report. If the patient is 17 years old or younger, use the table above to determine out of range values. Performed at: [facility] [address] [id number] Solution Coordinator: Mitchell Briggs PhD, Phone: [phone] Performed By: #### L 501.5500 #### [facility] [address] [place], [place], [address] ANGEL Comprehensive Panelon ANGEL TABLE Comment Normal . [facility] Comment on above: Result Comment: Auto antibody Disease Association Condition Frequency --------- Antinuclear Antibody, SLE, mixed connective Direct (ANGEL-D) tissue diseases --------- dsDNA SLE 40 - 60% --------- Chromatin Drug induced SLE 90% SLE 48 - 97% --------- SSA (Ro) SLE 25 - 35% Sjogren's Syndrome 40 - 70% Lupus 100% --------- SSB (La) SLE 10% Sjogren's Syndrome 30% --------- Sm (anti-Hendrix) SLE 15 - 30% --------- COIN PURSE FRAMER Mixed Connective Tissue Disease 95% (U1 nRNP, SLE 30 - 50% anti-ribonucleoprotein) Polymyositis and/or Dermatomyositis 20% --------- Scl-70 (antiDNA Scleroderma (diffuse) 20 - 35% topoisomerase) Crest 13% --------- Kathy-1 Polymyositis and/or Dermatomyositis 20 - 40% --------- Centromere B Scleroderma - Crest variant 80% Performed at: [facility] [id number] Solution Coordinator: Mitchell Briggs PhD, Phone: [phone] Performed By: #### L 484.6794 #### [facility] [address] [place], [address] Absolute neutrophil countOrd ered By: Ilya Peña on 02-16-2024 Neutrophils (Bld) [#/Vol] 3.2 10*3/uL 2.0-7.7 [facility] Basic Metabolic Profile (BMP )on 02-16-2024 BUN/CRE 13.3 RATIO Normal 10-20 [facility] Comment on above: Order Comment: Comme nts: SPECIMEN #3'TROP' Serial specimen #1, #2 or #3: 3 Performed By: #### L 452.4274 #### [facility] [address] [place], [address] CA,Total 8.6 mg/dL Normal 8.5-10.1 [facility] Comment on above: Order Comment: Comme nts: SPECIMEN #3'TROP' Serial specimen #1, #2 or #3: 3 Performed By: #### L 299.3287 #### [facility] [address] [place], [address] Chloride [Moles/Vol] 116 mmol/L High 98-107 [facility] Comment on above: Order Comment: Comme nts: SPECIMEN #3'TROP' Serial specimen #1, #2 or #3: 3 Performed By: #### L 501.9985 #### [facility] [address] [place], [address] CO2 [Moles/Vol] 26.0 mmol/L Normal 21.0-32.0 [facility] Comment on above: Order Comment: Comme nts: SPECIMEN #3'TROP' Serial specimen #1, #2 or #3: 3 Performed By: #### L 501.9985 #### [facility] [address] [place], [address] Creatinine [Mass/Vol] 1.20 mg/dL High 0.55-1.02 [facility] Comment on above: Order Comment: Comme nts: SPECIMEN #3'TROP' Serial specimen #1, #2 or #3: 3 Result Comment: The validity of the calculated GFR GFRAA in patients over 70 years has not been determined. Clinical correlation is essential. Performed By: #### L 501.9985 #### [facility] [address] [place], [address] ECRCL 62.69 ml/min Normal [facility] Comment on above: Order Comment: Comme nts: SPECIMEN #3'TROP' Serial specimen #1, #2 or #3: 3 Performed By: #### L 501.9985 #### [facility] [address] [place], [address] EST GFR - AA 61 mL/min Normal >60 [facility] Comment on above: Order Comment: Comme nts: SPECIMEN #3'TROP' Serial specimen #1, #2 or #3: 3 Result Comment: Afri can Mozambican GFR Calc Performed By: #### L 501.9985 #### [facility] [address] [place], [address] GAP 2 Low 5-15 [facility] Comment on above: Order Comment: Comme nts: SPECIMEN #3'TROP' Serial specimen #1, #2 or #3: 3 Performed By: #### L 501.9985 #### [facility] [address] [place], [address] GFR/1.73 sq M.predicted among non-blacks MDRD (S/P/Bld) [Vol rate/Area] 51 mL/min/{1.73_m2} Low >60 [facility] Comment on above: Order Comment: Comme nts: SPECIMEN #3'TROP' Serial specimen #1, #2 or #3: 3 Result Comment: Non- GFR Calc Performed By: #### L 501.9985 #### [facility] [address] [place], [address] Glucose [Mass/Vol] 117 mg/dL High 74-106 [facility] Comment on above: Order Comment: Comme nts: SPECIMEN #3'TROP' Serial specimen #1, #2 or #3: 3 Result Comment: Fast ing Glucose result from 100 to 125 mg/dL suggests IMPAIRED HOMEOSTASIS per A.D.A. criteria. Performed By: #### L 501.9985 #### [facility] [address] [place], [address] Potassium [Moles/Vol] 3.8 mmol/L Normal 3.5-5.1 [facility] Comment on above: Order Comment: Comme nts: SPECIMEN #3'TROP' Serial specimen #1, #2 or #3: 3 Performed By: #### L [id number] #### [facility] [address] [place], [address] Sodium [Moles/Vol] 144 mmol/L Normal 136-145 [facility] Comment on above: Order Comment: Comme nts: SPECIMEN #3'TROP' Serial specimen #1, #2 or #3: 3 Performed By: #### L 501.9985 #### [facility] [address] [place], [address] Urea nitrogen [Mass/Vol] 16 mg/dL Normal 7-18 [facility] Comment on above: Order Comment: Comme nts: SPECIMEN #3'TROP' Serial specimen #1, #2 or #3: 3 Performed By: #### L 501.9985 #### [facility] [address] [place], [address] Basophil percentageOrdered B y: Ilya Peña on 02-16-2024 Basophils/100 WBC (Bld) 0.3 % 0-1 [facility] Blood urea nitrogen (BUN)/cr eatinine ratioOrdered By: Ilya Peña on 02-16-2024 Urea nitrogen/Creatinine [Mass ratio] 13.3 mg/mg 10-20 [facility] CBC W/Diff, Automatedon Absolute Lymph 1.88 X10 3/uL Normal 0.83-4.51 [facility] Comment on above: Performed By: #### L 501.9985 #### [facility] [address] [place], [address] Absolute Neut 3.2 X10 3/uL Normal 2.0-7.7 [facility] Comment on above: Performed By: #### L [id number] #### [facility] [address] [place], [address] Basophils/100 WBC (Bld) 0.3 % Normal 0-1 [facility] Comment on above: Performed By: #### L 501.9985 #### [facility] [address] [place], [address] Eosinophils/100 WBC (Bld) 1.3 % Normal 0-5 [facility] Comment on above: Performed By: #### L 501.9985 #### [facility] [address] [place], [address] Erythrocyte distribution width (RBC) [Ratio] 11.9 % Normal 11.6-14.6 [facility] Comment on above: Performed By: #### L [id number] #### [facility] [address] [place], [address] Hematocrit (Bld) [Volume fraction] 32.2 % Low 37-47 [facility] Comment on above: Performed By: #### L 501.9985 #### [facility] [address] [place], [address] Hemoglobin (Bld) [Mass/Vol] 10.7 g/dL Low 12.0-15.0 [facility] Comment on above: Performed By: #### L 501.9985 #### [facility] [address] [place], [address] IG% 0.200 Normal 0.0-0.9 [facility] Comment on above: Result Comment: IG% - Immature Granulocytes (promyelocytes, myelocytes and metamyelocytes) > 1% indicates that a LEFT SHIFT is Present. Performed By: #### L [id number] #### [facility] [address] [place], [address] Lymphocytes/100 WBC (Bld) 31.6 % Normal 19-41 [facility] Comment on above: Performed By: #### L 501.9985 #### [facility] [address] [place], [address] MCH (RBC) [Entitic mass] 32.6 pg High 27.0-32.0 [facility] Comment on above: Performed By: #### L [id number] #### [facility] [address] [place], [address] MCHC (RBC) [Mass/Vol] 33.2 g/dL Normal 32-36 [facility] Comment on above: Performed By: #### L [id number] #### [facility] [address] [place], [address] MCV (RBC) [Entitic vol] 98.2 fL Normal 81-99 [facility] Comment on above: Performed By: #### L [id number] #### [facility] [address] [place], [address] Monocytes/100 WBC (Bld) 12.6 % High 0-10 [facility] Comment on above: Performed By: #### L 501.9985 #### [facility] [address] [place], [address] Neutrophils/100 WBC (Bld) 54.0 % Normal 47-70 [facility] Comment on above: Performed By: #### L 501.9985 #### [facility] [address] [place], [address] Nucleated RBC (Bld) [#/Vol] 0 10*3/uL Normal 0-5 [facility] Comment on above: Performed By: #### L 501.9985 #### [facility] [address] [place], [address] Platelet mean volume (Bld) [Entitic vol] 9.4 fL Normal 6.2-12.0 [facility] Comment on above: Performed By: #### L [id number] #### [facility] [address] [place], [address] Platelets (Bld) [#/Vol] 198 10*3/uL Normal 150-450 [facility] Comment on above: Performed By: #### L [id number] #### [facility] [address] [place], [address] RBC (Bld) [#/Vol] 3.28 10*6/uL Low 4.2-5.4 [facility] Comment on above: Performed By: #### L 501.9985 #### [facility] [address] [place], [address] RDW SD 43.0 fl Normal 35.1-43.9 [facility] Comment on above: Performed By: #### L 501.9985 #### [facility] [address] [place], [address] WBC (Bld) [#/Vol] 6.0 10*3/uL Normal 4.4-11.0 [facility] Comment on above: Performed By: #### L 574.9985 #### [facility] [address] [place], [place], [id number] Carbon dioxide measurementOr dered By: Ilya Peña on 02-16-2024 CO2 [Moles/Vol] 26.0 mmol/L 21.0-32.0 [facility] Chloride measurementOrdered By: Ilya Peña on 02-16-2024 Chloride [Moles/Vol] 116 mmol/L High 98-107 [facility] Discharge Instructionon Discharge Instruction [facility] Medical Records Department [address] [place] [address] Instructions for Home/Discharge Instructions 02/16/24 0929 MR#: [id number] Acct: [id number] Name: TERESA CASH Rep #: [id number] : 1975 48 From: Ilya Peña MD PCP: GALILEA WHITAKER Status:ADM IN Discharge Instructions Diet Discharge Diet: Low fat / Low cholesterol DC O2, CPAP, BIPAP needs Home O2 Discharge instructions: No Dressing / Incision Discharge Activity: Return to Normal Activity Dressing / Incision Call your doctor if you observe: Fever of 101 or Higher, Shortness of breath, Dizziness, Fainting spells, Swelling in the ankles, Chest pain and Increased palpitations (irregular heartbeat) Follow Up Care Test Results: Test results from this visit will be discussed in further detail at your follow-up appointment, if applicable. Discharge Plan Admission Admit Date/Time: 02/14/24 04:05 Attending Provider: Ilya Peña Primary Care Provider: GALILEA WHITAKER Consulting Providers: Susy Carranza; Subha South Instructions Additional Instructions / Restrictions: hold your blood pressure medications until seen by nephrology. Recommend outpatient follow-up with your PCP to recheck your kidney function Discharge Orders/Prescriptions Prescriptions: Continued cholecalciferol (vitamin D3) 250 mcg (10,000 unit) capsule 250 mcg PO QWEEK cyanocobalamin (vitamin B-12) 1,000 mcg capsule 1,000 mcg PO DAILY Zyrtec 10 mg capsule 10 mg PO DAILY PRN (Reason: allergic symptoms) estradiol 0.01 % (0.1 mg/gram) cream See Rx Instructions vaginal .COMPLEX Qty: 42.5 2RF Rx Instructions: small amount as directed vaginal every other day X 4 weeks then twice a week; ondansetron 4 mg tablet,disintegrating 4 mg PO Q8H PRN PRN (Reason: Nausea) Qty: 10 0RF pantoprazole 20 mg tablet,delayed release (DR/EC) 20 mg PO DAILY tizanidine 4 mg tablet 0 - 12 mg PO QHS Held olmesartan [Benicar] 20 mg tablet 20 mg PO DAILY Hold Instructions: Resume on 03/05/24. spironolactone 50 mg tablet 50 mg PO DAILY Hold Instructions: Resume on 03/05/24. Patient Comments: pt states she has not taken it for 2 weeks Referrals / Follow Up: GALILEA WHITAKER [Other] Subha South MD [Med Staff - Consulting] - Within 2 Weeks NOT,DEFINED [Non-Staff] - Disposition Disposition (needs filled in before D/C Order can be placed): Home, Self Care 02/16/24 0996 Ilya Peña MD CC: GALILEA WHITAKER; Dr. Susy Carranza, DO; Dr. Criselda South MD Signed Normal [facility] Eosinophil percentageOrdered By: Ilya Peña on 02-16-2024 Eosinophils/100 WBC (Bld) 1.3 % 0-5 [facility] Erythrocyte distribution wid th (RBC) [Ratio]Ordered By: Ilya Peña on 02-16-2024 Erythrocyte distribution width (RBC) [Entitic vol] 43.0 fL 35.1-43.9 [facility] Erythrocyte distribution wid th ratioOrdered By: Ilya Peña on 02-16-2024 Erythrocyte distribution width (RBC) [Ratio] 11.9 % 11.6-14.6 [facility] Estimated glomerular filtrat ion rate (GFR) AmericanOrdered By: Ilya Peña on 02-16-2024 Estimated GFR (MDRD) Amer 61 mL/min >60 [facility] Comment on above: GFR Calc Estimation of creatinine amarjit aranceOrdered By: Ilya Peña on 02-16-2024 Estimated Creatinine Clearance Calc 62.69 ml/min [facility] Glomerular filtration rate ( GFR) estimationOrdered By: Ilya Peña on 02-16-2024 Estimated GFR (MDRD) Non-Af Amer 51 mL/min Low >60 [facility] Comment on above: Non- GFR Calc Glucose measurementOrdered B y: Ilya Peña on 02-16-2024 Glucose [Mass/Vol] 117 mg/dL High 74-106 [facility] Comment on above: Fasting Glucose resu lt from 100 to 125 mg/dL suggests IMPAIRED HOMEOSTASIS per A.D.A. criteria. Hematocrit Auto (Bld) [Volum e fraction]Ordered By: Ilya Peña on 02-16-2024 Hematocrit (Bld) [Volume fraction] 32.2 % Low 37-47 [facility] Hemoglobin measurementOrdere d By: Ilya Peña on 02-16-2024 Hemoglobin (Bld) [Mass/Vol] 10.7 g/dL Low 12.0-15.0 [facility] Immature granulocytes/100 WB C Auto (Bld)Ordered By: Ilya Peña on 02-16-2024 Immature granulocytes/100 WBC (Bld) 0.200 % 0.0-0.9 [facility] Comment on above: IG% - Immature Granu locytes (promyelocytes, myelocytes and metamyelocytes) > 1% indicates that a LEFT SHIFT is Present. L501.4020on 02-16-2024 TROPONIN-I HS 15 pg/mL Normal 3.0-54.0 [facility] Comment on above: Order Comment: Comme nts: SPECIMEN #3'TROP' Serial specimen #1, #2 or #3: 3 Result Comment: Plea se Note: New Test Units and Gender Specific Reference Ranges. For more information see Policy Stat Procedure Sebastian High Sensitivity Troponin (TNIH) and attachments. Performed By: #### L 501.9985 #### [facility] [address] [place], [address] TROPONIN-I HS 17 pg/mL Normal 3.0-54.0 [facility] Comment on above: Order Comment: Comme nts: SPECIMEN #2 'TROP' Serial specimen #1, #2 or #3: 2 Result Comment: Plea se Note: New Test Units and Gender Specific Reference Ranges. For more information see Policy Stat Procedure Sebastian High Sensitivity Troponin (TNIH) and attachments. Performed By: #### L 501.4020 #### [facility] [address] [place], [place], [id number] (991) Lymphocytes Auto (Unsp spec) [#/Vol]Ordered By: Ilya Peña on 02-16-2024 Lymphocytes (Bld) [#/Vol] 1.88 10*3/uL 0.83-4.5 1 [facility] Lymphocytes/100 WBC Auto (Un sp spec)Ordered By: Ilya Peña on 02-16-2024 Lymphocytes/100 WBC (Bld) 31.6 % 19-41 [facility] MCV (mean corpuscular volume ) determinationOrdered By: Ilya Peña on 02-16-2024 MCV (RBC) [Entitic vol] 98.2 fL 81-99 [facility] Mean corpuscular hemoglobin (MCH) determinationOrdered By: Ilya Peña on 02-16-2024 MCH (RBC) [Entitic mass] 32.6 pg High 27.0-32.0 [facility] Mean corpuscular hemoglobin concentration (MCHC) determinationOrdered By: Ilya Peña on 02-16-2024 MCHC (RBC) [Mass/Vol] 33.2 g/dL 32-36 [facility] Mean platelet volume determi nationOrdered By: Ilya Peña on 02-16-2024 Platelet mean volume (Bld) [Entitic vol] 9.4 fL 6.2-12.0 [facility] Monocyte percentageOrdered B y: Ilya Peña on 02-16-2024 Monocytes/100 WBC (Bld) 12.6 % High 0-10 [facility] Neutrophil percentageOrdered By: Ilya Peña on 02-16-2024 Neutrophils/100 WBC (Bld) 54.0 % 47-70 [facility] Nucleated red blood cell per centageOrdered By: Ilya Peña on 02-16-2024 Nucleated RBC/100 WBC (Bld) [Ratio] 0 % 0-5 [facility] Platelet countOrdered By: Lupe Peña on 02-16-2024 Platelets (Bld) [#/Vol] 198 10*3/uL 150-450 [facility] Potassium measurementOrdered By: Ilya Peña on 02-16-2024 Potassium [Moles/Vol] 3.8 mmol/L 3.5-5.1 [facility] RBC Auto (Bld) [#/Vol]Ordere d By: Ilya Peña on 02-16-2024 RBC (Bld) [#/Vol] 3.28 10*6/uL Low 4.2-5.4 [facility] Serum anion gap measurementO rdered By: Ilya Peña on 02-16-2024 Anion gap [Moles/Vol] 2 mmol/L Low 5-15 [facility] Serum or plasma calcium zaire urement (mass/volume)Ordered By: Ilya Peña on 02-16-2024 Calcium [Mass/Vol] 8.6 mg/dL 8.5-10.1 [facility] Serum or plasma creatinine m easurement (mass/volume)Ordered By: Ilya Peña on 02-16-2024 Creatinine [Mass/Vol] 1.20 mg/dL High 0.55-1.02 [facility] Comment on above: The validity of the calculated GFR & GFRAA in patients over 70 years has not been determined. Clinical correlation is essential. Serum or plasma urea nitroge n measurement (mass/volume)Ordered By: Ilya Peña on 02-16-2024 Urea nitrogen [Mass/Vol] 16 mg/dL 7-18 [facility] Sodium levelOrdered By: Dung Peña on 02-16-2024 Sodium [Moles/Vol] 144 mmol/L 136-145 [facility] Troponin IOrdered By: Chloe Carranza on 02-16-2024 Troponin I High Sensitivity 15 pg/mL 3.0-54.0 [facility] Comment on above: Please Note: New Lesly t Units and Gender Specific Reference Ranges. For more information see Policy Stat Procedure Sebastian High Sensitivity Troponin (TNIH) and attachments. White blood cell (WBC) count Ordered By: Ilya Peña on 02-16-2024 WBC (Bld) [#/Vol] 6.0 10*3/uL 4.4-11.0 [facility] 12 Lead EKGon 02-15-2024 12 Lead EKG [facility] [address] [place] [address] 12 Lead EKG 02/15/24 2154 MR#: [id number] Acct: [id number] Name: TERESA CASH Rep #: [id number] : 1975 48 From: Micky Moss MD Attending Dr: Dr. Ilya Peña MD Status : ADM IN Ordering Dr: Susy Carranza DO Date: 02/15/24 [place] [facility] [place] Sex: F C Admitted: 02/14/24 Test Reason : CP Blood Pressure : */* mmHG Vent. Rate : 52 BPM Atrial Rate : 52 BPM P-R Int : 160 ms QRS Dur : 90 ms QT Int : 436 ms P-R-T Axes : 56 -13 33 degrees QTcB Int : 405 ms Sinus bradycardia Otherwise normal ECG When compared with ECG of 14-Feb-2024 01:04, MANUAL COMPARISON REQUIRED DATA IS UNCONFIRMED Confirmed by MICKY MOSS MD ([id number]), telegraph editor RADHA PACE ([id number]) on 02/16/2024 10:00:29 AM Referred By: DILLON Confirmed By: MICKY MOSS MD 02/16/24 1000 Date Micky Moss MD CC: GALILEA WHITAKER; Dr. Susy Carranza DO; Dr. Ilya Peña MD Signed Normal [facility] Basic Metabolic Profile (BMP )on 02-15-2024 BUN/CRE 13.1 RATIO Normal 10-20 [facility] Comment on above: Performed By: #### L 501.1930, L502.0300, L502.0250 #### [facility] [address] [place], [address] CA,Total 8.8 mg/dL Normal 8.5-10.1 [facility] Comment on above: Performed By: #### L 501.1930, L502.0300, L502.0250 #### [facility] [address] [place], [address] Chloride [Moles/Vol] 113 mmol/L High 98-107 [facility] Comment on above: Performed By: #### L 501.1930, L502.0300, L502.0250 #### [facility] [address] [place], [address] CO2 [Moles/Vol] 22.0 mmol/L Normal 21.0-32.0 [facility] Comment on above: Performed By: #### L 501.1930, L502.0300, L502.0250 #### [facility] [address] [place], [address] Creatinine [Mass/Vol] 2.06 mg/dL High 0.55-1.02 [facility] Comment on above: Result Comment: The validity of the calculated GFR GFRAA in patients over 70 years has not been determined. Clinical correlation is essential. Performed By: #### L 501.1930, L502.0300, L502.0250 #### [facility] [address] [place], [address] ECRCL 36.52 ml/min Normal [facility] Comment on above: Performed By: #### L 501.1930, L502.0300, L502.0250 #### [facility] [address] [place], [address] EST GFR - AA 33 mL/min Low >60 [facility] Comment on above: Result Comment: Afri can Mozambican GFR Calc Performed By: #### L 501.1930, L502.0300, L502.0250 #### [facility] [address] [place], [address] GAP 6 Normal 5-15 [facility] Comment on above: Performed By: #### L 501.1930, L502.0300, L502.0250 #### [facility] [address] [place], [address] GFR/1.73 sq M.predicted among non-blacks MDRD (S/P/Bld) [Vol rate/Area] 27 mL/min/{1.73_m2} Low >60 [facility] Comment on above: Result Comment: Non- GFR Calc Performed By: #### L 501.1930, L502.0300, L502.0250 #### [facility] [address] [place], [address] Glucose [Mass/Vol] 127 mg/dL High 74-106 [facility] Comment on above: Result Comment: Fast ing Glucose result greater than or equal to 126 mg/dL suggests DIABETES MELLITUS per A.D.A. criteria. Performed By: #### L 501.1930, L502.0300, L502.0250 #### [facility] [address] [place], [address] Potassium [Moles/Vol] 3.8 mmol/L Normal 3.5-5.1 [facility] Comment on above: Performed By: #### L 501.1930, L502.0300, L502.0250 #### [facility] [address] [place], [address] Sodium [Moles/Vol] 141 mmol/L Normal 136-145 [facility] Comment on above: Performed By: #### L 501.1930, L502.0300, L502.0250 #### [facility] [address] [place], [address] Urea nitrogen [Mass/Vol] 27 mg/dL High 7-18 [facility] Comment on above: Performed By: #### L 501.1930, L502.0300, L502.0250 #### [facility] [address] [place], [address] Bilirubin Test strip Ql (U)O rdered By: Ilya Peña on 02-15-2024 Bilirubin Ql (U) Negative Negative [facility] CBC W/Diff, Automatedon Absolute Lymph 1.27 X10 3/uL Normal 0.83-4.51 [facility] Comment on above: Performed By: #### L 501.9985 #### [facility] [address] [place], [address] Absolute Neut 4.3 X10 3/uL Normal 2.0-7.7 [facility] Comment on above: Performed By: #### L [id number] #### [facility] [address] [place], [address] Basophils/100 WBC (Bld) 0.3 % Normal 0-1 [facility] Comment on above: Performed By: #### L 501.9985 #### [facility] [address] [place], [address] Eosinophils/100 WBC (Bld) 0.5 % Normal 0-5 [facility] Comment on above: Performed By: #### L [id number] #### [facility] [address] [place], [address] Erythrocyte distribution width (RBC) [Ratio] 12.0 % Normal 11.6-14.6 [facility] Comment on above: Performed By: #### L 501.9985 #### [facility] [address] [place], [address] Hematocrit (Bld) [Volume fraction] 33.4 % Low 37-47 [facility] Comment on above: Performed By: #### L 501.9985 #### [facility] [address] [place], [address] Hemoglobin (Bld) [Mass/Vol] 11.0 g/dL Low 12.0-15.0 [facility] Comment on above: Performed By: #### L 501.85 #### [facility] [address] [place], [address] IG% 0.300 Normal 0.0-0.9 [facility] Comment on above: Result Comment: IG% - Immature Granulocytes (promyelocytes, myelocytes and metamyelocytes) > 1% indicates that a LEFT SHIFT is Present. Performed By: #### L 501.9985 #### [facility] [address] [place], [address] Lymphocytes/100 WBC (Bld) 19.8 % Normal 19-41 [facility] Comment on above: Performed By: #### L 501.9985 #### [facility] [address] [place], [address] MCH (RBC) [Entitic mass] 32.0 pg Normal 27.0-32.0 [facility] Comment on above: Performed By: #### L 501.9985 #### [facility] [address] [place], [address] MCHC (RBC) [Mass/Vol] 32.9 g/dL Normal 32-36 [facility] Comment on above: Performed By: #### L [id number] #### [facility] [address] [place], [address] MCV (RBC) [Entitic vol] 97.1 fL Normal 81-99 [facility] Comment on above: Performed By: #### L [id number] #### [facility] [address] [place], [address] Monocytes/100 WBC (Bld) 12.8 % High 0-10 [facility] Comment on above: Performed By: #### L [id number] #### [facility] [address] [place], [address] Neutrophils/100 WBC (Bld) 66.3 % Normal 47-70 [facility] Comment on above: Performed By: #### L 501.9985 #### [facility] [address] [place], [address] Nucleated RBC (Bld) [#/Vol] 0 10*3/uL Normal 0-5 [facility] Comment on above: Performed By: #### L [id number] #### [facility] [address] [place], [address] Platelet mean volume (Bld) [Entitic vol] 9.3 fL Normal 6.2-12.0 [facility] Comment on above: Performed By: #### L 501.9985 #### [facility] [address] [place], [address] Platelets (Bld) [#/Vol] 193 10*3/uL Normal 150-450 [facility] Comment on above: Performed By: #### L 501.9985 #### [facility] [address] [place], [address] RBC (Bld) [#/Vol] 3.44 10*6/uL Low 4.2-5.4 [facility] Comment on above: Performed By: #### L [id number] #### [facility] [address] [place], [address] RDW SD 42.6 fl Normal 35.1-43.9 [facility] Comment on above: Performed By: #### L 501.9985 #### [facility] [address] [place], [address] WBC (Bld) [#/Vol] 6.4 10*3/uL Normal 4.4-11.0 [facility] Comment on above: Performed By: #### L 501.9985 #### [facility] [address] [place], [address] CPK Total, Creatine Kinaseon 02-15-2024 CPK TOTAL 43 U/L Normal 26-192 [facility] Comment on above: Performed By: #### L 501.9985 #### [facility] [address] [place], [address] Epithelial cells.squamous LM Ql (Urine sed)Ordered By: Ilya Peña on 02-15-2024 Epithelial cells.squamous LM.HPF (Urine sed) [#/Area] 0 /[HPF] 5-10 [facility] Glucose Ql (U)Ordered By: Lupe Peña on 02-15-2024 Urine Glucose (UA) Normal mg/dl Normal [facility] Ketones Test strip Ql (U)Ord ered By: Ilya Peña on 02-15-2024 Ketones Ql (U) Negative Negative [facility] L501.4020on 02-15-2024 TROPONIN-I HS 16 pg/mL Normal 3.0-54.0 [facility] Comment on above: Order Comment: 'TROP ' Serial specimen #1, #2 or #3: 1 1 Result Comment: Sherron nobles Note: New Test Units and Gender Specific Reference Ranges. For more information see Policy Stat Procedure Sebastian High Sensitivity Troponin (TNIH) and attachments. Performed By: #### L 501.4020 #### [facility] [address] [place], [address] Microscopic analysis of urin e for red blood cells (RBC)Ordered By: Ilya Peña on 02-15-2024 Urine RBC 0 SEEN /hpf 0-5 [facility] Mucus LM Ql (Urine sed)Order ed By: Ilya Peña on 02-15-2024 Mucus Ql (Urine sed) 0 SEEN /hpf [facility] Nitrite Test strip Ql (U)Ord ered By: Ilya Peña on 02-15-2024 Nitrite Ql (U) Negative Negative [facility] Protein Test strip Ql (U)Ord ered By: Ilya Peña on 02-15-2024 Protein Ql (U) 30 mg/dl High Negative [facility] Protein+Creatinine Ratio,Uri neon 02-15-2024 PROT:CRE RATIO 438 mg/g CRE High 0-200 [facility] Comment on above: Performed By: #### L 501.5500 #### [facility] [address] [place], [address] Protein (U) [Mass/Vol] 28.5 mg/dL High <11.9 [facility] Comment on above: Performed By: #### L 501.5500 #### [facility] [address] [facility] [place], [address] UR CREAT 65.00 mg/dL Normal NO RANGE EST. [facility] Comment on above: Performed By: #### L 501.5500 #### [facility] [address] [facility] [place], [address] Protein/Creatinine (U) [Mass ratio]Ordered By: Ilya Peña on 02-15-2024 Urine Protein/Creatinine Ratio 438 mg/g CRE High 0-200 [facility] Random urine protein measure mentOrdered By: Ilya Peña on 02-15-2024 Protein (U) [Mass/Vol] 28.5 mg/dL High 0.0-11.8 [facility] Total creatine kinase measur ementOrdered By: Criselda South on 02-15-2024 CK [Catalytic activity/Vol] 43 U/L 26-192 [facility] Urinalysis, Completeon 02-14 BACTERIA 0 SEEN Normal None Seen [facility] Comment on above: Order Comment: CLEAN CATCH Performed By: #### L [id number] #### [facility] [address] [place], [address] EPI,SQUAMOUS 0 SEEN Normal 5-10 [facility] Comment on above: Order Comment: CLEAN CATCH Performed By: #### L [id number] #### [facility] [address] [place], [address] Mucus Ql (Urine sed) 0 SEEN Normal [facility] Comment on above: Order Comment: CLEAN CATCH Performed By: #### L [id number] #### [facility] [address] [place], [address] RBC 0 SEEN Normal 0-5 [facility] Comment on above: Order Comment: CLEAN CATCH Performed By: #### L [id number] #### [facility] [address] [place], [address] WBC 0 SEEN Normal 0-5 [facility] Comment on above: Order Comment: CLEAN CATCH Performed By: #### L [id number] #### [facility] [address] [place], [address] Urine blood detectionOrdered By: Ilya Peña on 02-15-2024 Urine Occult Blood 25 /ul High Negative [facility] Urine clarityOrdered By: [place] Peña on 02-15-2024 Clarity (U) Clear Clear [facility] Urine color determinationOrd ered By: Ilya Peña on 02-15-2024 Color (U) Yellow Yellow [facility] Urine creatinine measurement (mass/volume)Ordered By: Ilya Peña on 02-15-2024 Creatinine (U) [Mass/Vol] 65.00 mg/dL NO RANGE EST. [facility] Urine leukocyte esterase det ection by dipstickOrdered By: Ilya Peña on 02-15-2024 Leukocyte esterase Test strip Ql (U) Negative Negative [facility] Urine pHOrdered By: Ilya Peña on 02-15-2024 pH (U) 6.0 [pH] 5.0 - 8.0 [facility] Urine sediment bacteria coun t by microscopy (number/high power field)Ordered By: Ilya Peña on 02-15-2024 Bacteria LM.HPF (Urine sed) [#/Area] 0 /[HPF] None Seen [facility] Urine specific gravity measu rementOrdered By: Ilya Peña on 02-15-2024 Specific gravity (U) [Rel density] 1.010 1.002-1.030 [facility] Urobilinogen Ql (U)Ordered B y: Ilya Peña on 02-15-2024 Urine Urobilinogen Normal mg/dl Normal [facility] White blood cell countOrdere d By: Ilya Peña on 02-15-2024 Urine WBC 0 SEEN /hpf 0-5 [facility] 12 Lead EKGon 02-14-2024 12 Lead EKG [facility] [address] [place] [address] 12 Lead EKG 02/14/24 0104 MR#: [id number] Acct: [id number] Name: TERESA CASH Rep #: [id number] : 1975 48 From: Micky Moss MD Attending Dr: Dr. Ilya Peña MD Status : ADM IN Ordering Dr: Bonnie Weber DO Date: 02/14/24 Location: [facility]3 Sex: F C Admitted: 02/14/24 Test Reason : DYSRHYTHMIA Blood Pressure : */* mmHG Vent. Rate : 87 BPM Atrial Rate : 87 BPM P-R Int : 176 ms QRS Dur : 88 ms QT Int : 380 ms P-R-T Axes : 49 -20 30 degrees QTcB Int : 457 ms Normal sinus rhythm Possible Left atrial enlargement Inferior infarct , age undetermined Abnormal ECG Confirmed by ISA MD, MICKY ([id number]), telegraph editor CASTROJOSÉAmos LISA ([id number]) on 02/16/2024 6:57:38 AM Referred By: Confirmed By: MICKY MOSS MD 02/16/24 0657 Date Micky Moss MD CC: GALILEA WHITAKER; Dr. Bonnie Weber DO; Dr. Ilya Peña MD Signed Normal [facility] Abdomen/Pelvis without Conto n 02-14-2024 Abdomen/Pelvis without Cont [facility] Imaging Services [address] [place], [place] [address] Abdomen/Pelvis without Cont MR#: [id number] Acct: [id number] Name: TERESA CASH Rep #: [id number] : 1975 F 48 From: Vania Reynoso PCP: GALILEA WHITAKER Status: REG ER Study: Abdomen/Pelvis without Cont Date of Exam: 06/04 Exam# [id number] Ordering Dr: Bonnie Weber DO [id number] E EXAM: CT Abdomen And Pelvis W/O Contrast Injection HISTORY: back pain, vomiting, GOPAL Bilateral flank pain, n/v, hx htn, ovarian cyst, appy, gastritis TECHNIQUE: Routine protocol CT abdomen and pelvis. IV Contrast: None.. Oral contrast: None. RADIATION DOSAGE (If Supplied By Facility): CTDIvol = ( 8.64 ) mGy, DLP = ( 470.78 ) mGycm Individualized dose optimization techniques were used for this CT. COMPARISON: None. LIMITATIONS: None. __ FINDINGS: LOWER CHEST: Included lung bases are clear. LIVER: Grossly unremarkable. GALLBLADDER AND BILIARY TREE: Grossly unremarkable. PANCREAS: Grossly unremarkable. SPLEEN: Grossly unremarkable. ADRENAL GLANDS: Grossly unremarkable. KIDNEYS AND URETERS: No calculi demonstrated. No hydronephrosis. Perinephric stranding bilaterally. PERITONEUM: No free air. No free fluid. BOWEL: Scattered diverticula throughout the colon. No bowel obstruction. APPENDIX: Not identified. Surgically absent. VESSELS: Abdominal aorta is normal caliber. REPRODUCTIVE ORGANS: Grossly unremarkable URINARY BLADDER: Grossly unremarkable. ABDOMINAL WALL: Unremarkable. BONES: No acute abnormalities. CT/Abdomen/Pelvis without Cont IMPRESSION: Bilateral perinephric stranding nonspecific, can be seen with acute process such as pyelonephritis or other inflammatory process. No urolithiasis or hydronephrosis. Electronically Signed: Vania Conroy MD at 2:30 EST , CC: GALILEA WHITAKER; Dr. Bonnie Weber DO Lead Technician: Signed Normal [facility] Albumin to globulin ratioOrd ered By: Ilya Peña on 02-14-2024 Albumin/Globulin [Mass ratio] 1.1 {ratio} 0.9-2.4 [facility] Atypical perinuclear antineu trophil cytoplasmic antibodies measurementOrdered By: Susy Carranza on 02-14-2024 Atypical p-ANCA <1:20 titer Neg:<1:20 [facility] Comment on above: The atypical pANCA p attern has been observed in asignificant percentage of patients with ulcerative colitis,primary sclerosing cholangitis and autoimmune hepatitis. Bilirubin, totalOrdered By: Ilya Peña on 02-14-2024 Bilirubin [Mass/Vol] 0.40 mg/dL 0.20-1.00 [facility] Comment on above: For patients on eltr ombopag therapy, use of Dimension Sebastian TBIL is not recommended. C-reactive protein measureme nt by high sensitivity methodOrdered By: Susy Carranza on 02-14-2024 C-Reactive Protein Extended Range < 2.90 mg/L 0.0-3.0 [facility] Comment on above: C-Reactive Protein ( CRP) provides useful information for thediagnosis, therapy and monitoring of inflammatory processesand associated diseases. For the evaluation of Relative Riskfor Cardiovascular Disease, a High Sensitivity CRP (HSCRP)should be ordered. CBC W/Diff, Automatedon 01-0 4-2025 Absolute Lymph 0.80 X10 3/uL Low 0.83-4.51 [facility] Comment on above: Performed By: #### L 501.4020 #### [facility] [address] [place], [address] Absolute Neut 7.5 X10 3/uL Normal 2.0-7.7 [facility] Comment on above: Performed By: #### L [id number] #### [facility] [address] [place], [address] Basophils/100 WBC (Bld) 0.5 % Normal 0-1 [facility] Comment on above: Performed By: #### L 501.4020 #### [facility] [address] [place], [address] Eosinophils/100 WBC (Bld) 0.1 % Normal 0-5 [facility] Comment on above: Performed By: #### L [id number] #### [facility] [address] [place], [address] Erythrocyte distribution width (RBC) [Ratio] 11.9 % Normal 11.6-14.6 [facility] Comment on above: Performed By: #### L 501.4020 #### [facility] [address] [place], [address] Hematocrit (Bld) [Volume fraction] 38.9 % Normal 37-47 [facility] Comment on above: Performed By: #### L 501.4020 #### [facility] [address] [place], [address] Hemoglobin (Bld) [Mass/Vol] 13.0 g/dL Normal 12.0-15.0 [facility] Comment on above: Performed By: #### L 501.4020 #### [facility] [address] [place], [address] IG% 0.500 Normal 0.0-0.9 [facility] Comment on above: Result Comment: IG% - Immature Granulocytes (promyelocytes, myelocytes and metamyelocytes) > 1% indicates that a LEFT SHIFT is Present. Performed By: #### L 501.4020 #### [facility] [address] [place], [address] Lymphocytes/100 WBC (Bld) 8.1 % Low 19-41 [facility] Comment on above: Performed By: #### L 501.4020 #### [facility] [address] [place], [address] MCH (RBC) [Entitic mass] 32.5 pg High 27.0-32.0 [facility] Comment on above: Performed By: #### L [id number] #### [facility] [address] [place], [address] MCHC (RBC) [Mass/Vol] 33.4 g/dL Normal 32-36 [facility] Comment on above: Performed By: #### L [id number] #### [facility] [address] [place], [address] MCV (RBC) [Entitic vol] 97.3 fL Normal 81-99 [facility] Comment on above: Performed By: #### L [id number] #### [facility] [address] [place], [address] Monocytes/100 WBC (Bld) 15.0 % High 0-10 [facility] Comment on above: Performed By: #### L 501.4020 #### [facility] [address] [place], [address] Neutrophils/100 WBC (Bld) 75.8 % High 47-70 [facility] Comment on above: Performed By: #### L 501.4020 #### [facility] [address] [place], [address] Nucleated RBC (Bld) [#/Vol] 0 10*3/uL Normal 0-5 [facility] Comment on above: Performed By: #### L 501.4020 #### [facility] [address] [place], [address] Platelet mean volume (Bld) [Entitic vol] 9.3 fL Normal 6.2-12.0 [facility] Comment on above: Performed By: #### L 501.4020 #### [facility] [address] [place], [address] Platelets (Bld) [#/Vol] 259 10*3/uL Normal 150-450 [facility] Comment on above: Performed By: #### L 501.4020 #### [facility] [address] [place], [address] RBC (Bld) [#/Vol] 4.00 10*6/uL Low 4.2-5.4 [facility] Comment on above: Performed By: #### L 501.4020 #### [facility] [address] [place], [address] RDW SD 42.5 fl Normal 35.1-43.9 [facility] Comment on above: Performed By: #### L 501.4020 #### [facility] [address] [place], [address] WBC (Bld) [#/Vol] 9.9 10*3/uL Normal 4.4-11.0 [facility] Comment on above: Performed By: #### L 501.4020 #### [facility] [address] [place], [address] Absolute Lymph 1.15 X10 3/uL Normal 0.83-4.51 [facility] Comment on above: Performed By: #### L 501.9985 #### [facility] [address] [place], [address] Absolute Neut 7.8 X10 3/uL High 2.0-7.7 [facility] Comment on above: Performed By: #### L 501.9985 #### [facility] [address] [place], [address] Basophils/100 WBC (Bld) 0.3 % Normal 0-1 [facility] Comment on above: Performed By: #### L 501.9985 #### [facility] [address] [place], [address] Eosinophils/100 WBC (Bld) 0.7 % Normal 0-5 [facility] Comment on above: Performed By: #### L 501.9985 #### [facility] [address] [place], [address] Erythrocyte distribution width (RBC) [Ratio] 11.9 % Normal 11.6-14.6 [facility] Comment on above: Performed By: #### L 501.9985 #### [facility] [address] [place], [address] Hematocrit (Bld) [Volume fraction] 40.6 % Normal 37-47 [facility] Comment on above: Performed By: #### L 501.9985 #### [facility] [address] [place], [address] Hemoglobin (Bld) [Mass/Vol] 13.8 g/dL Normal 12.0-15.0 [facility] Comment on above: Performed By: #### L 501.9985 #### [facility] [address] [place], [address] IG% 0.300 Normal 0.0-0.9 [facility] Comment on above: Result Comment: IG% - Immature Granulocytes (promyelocytes, myelocytes and metamyelocytes) > 1% indicates that a LEFT SHIFT is Present. Performed By: #### L 501.9985 #### [facility] [address] [place], [address] Lymphocytes/100 WBC (Bld) 11.5 % Low 19-41 [facility] Comment on above: Performed By: #### L .85 #### [facility] [address] [place], [address] MCH (RBC) [Entitic mass] 32.5 pg High 27.0-32.0 [facility] Comment on above: Performed By: #### L .85 #### [facility] [address] [place], [address] MCHC (RBC) [Mass/Vol] 34.0 g/dL Normal 32-36 [facility] Comment on above: Performed By: #### L 501.9985 #### [facility] [address] [place], [address] MCV (RBC) [Entitic vol] 95.5 fL Normal 81-99 [facility] Comment on above: Performed By: #### L 501.85 #### [facility] [address] [place], [address] Monocytes/100 WBC (Bld) 9.4 % Normal 0-10 [facility] Comment on above: Performed By: #### L 501.9985 #### [facility] [address] [place], [address] Neutrophils/100 WBC (Bld) 77.8 % High 47-70 [facility] Comment on above: Performed By: #### L 501.85 #### [facility] [address] [place], [address] Nucleated RBC (Bld) [#/Vol] 0 10*3/uL Normal 0-5 [facility] Comment on above: Performed By: #### L 501.9985 #### [facility] [address] [place], [address] Platelet mean volume (Bld) [Entitic vol] 9.0 fL Normal 6.2-12.0 [facility] Comment on above: Performed By: #### L 501.9985 #### [facility] [address] [place], [address] Platelets (Bld) [#/Vol] 295 10*3/uL Normal 150-450 [facility] Comment on above: Performed By: #### L 501.9985 #### [facility] [address] [place], [address] RBC (Bld) [#/Vol] 4.25 10*6/uL Normal 4.2-5.4 [facility] Comment on above: Performed By: #### L 501.9985 #### [facility] [address] [place], [address] RDW SD 41.3 fl Normal 35.1-43.9 [facility] Comment on above: Performed By: #### L 501.9985 #### [facility] [address] [place], [address] WBC (Bld) [#/Vol] 10.0 10*3/uL Normal 4.4-11.0 [facility] Comment on above: Performed By: #### L 501.9985 #### [facility] [address] [place], [address] CPK Total, Creatine Kinaseon 02-14-2024 CPK TOTAL 67 U/L Normal 26-192 [facility] Comment on above: Performed By: #### L 501.3620, L501.6710 #### [facility] [address] [place], [address] CRPon 02-14-2024 C-REACTIVE PROT < 2.90 Normal 0.0-3.0 [facility] Comment on above: Result Comment: C-Re active Protein (CRP) provides useful information for the diagnosis, therapy and monitoring of inflammatory processes and associated diseases. For the evaluation of Relative Risk for Cardiovascular Disease, a High Sensitivity CRP (HSCRP) should be ordered. Performed By: #### L 501.3620, L501.6710 #### [facility] [address] [place], [place], [address] Centromere B antibody assayO rdered By: Susy Carranza on 02-14-2024 Centromere B Antibody <0.2 AI 0.0-0.9 [facility] Comment on above: Previous reported re sult: TNP AIEdited by: ADRIANA on 02/16/24:1407 AMENDED REPORT 02/16/24 1407 ANTI-CENT B previously reported as: Test not performed Chromatin antibody assayOrde red By: Susy Carranza on 02-14-2024 Antichromatin Antibodies <0.2 AI 0.0-0.9 [facility] Comment on above: Previous reported re sult: TNP AIEdited by: ADRIANA on 02/16/24:1407 AMENDED REPORT 02/16/24 1407 ANTICHROMATIN previously reported as: Test not performed Complement C3 assayOrdered B y: Susy Carranza on 02-14-2024 Complement C3 108 mg/dL 82-167 [facility] Complement C4 [Mass/Vol]Orde red By: Susy Carranza on 02-14-2024 Complement C4 24 mg/dL 12-38 [facility] Comprehensive Metabolic Prof ilon 02-14-2024 Albumin [Mass/Vol] 3.5 g/dL Normal 3.2-5.0 [facility] Comment on above: Order Comment: CURRY Sullivan PREVIOUS SPECIMEN REJECTED DUE TOSPECIMEN BEING QNS POSSIBLY CONTAMINATED. 02/14/24 0832Matthew R Stoner. Performed By: #### L 501.5500 #### [facility] [address] [place], [address] Albumin/Globulin [Mass ratio] 1.1 {ratio} Normal 0.9-2.4 [facility] Comment on above: Order Comment: REDRA W. PREVIOUS SPECIMEN REJECTED DUE TOSPECIMEN BEING QNS POSSIBLY CONTAMINATED. 02/14/24 0832Matthew R Stoner. Performed By: #### L 501.5500 #### [facility] [address] [place], [address] ALK P 85 U/L Normal 45-117 [facility] Comment on above: Order Comment: REDRA W. PREVIOUS SPECIMEN REJECTED DUE TOSPECIMEN BEING QNS POSSIBLY CONTAMINATED. 02/14/24 0832Matthew R Stoner. Performed By: #### L 501.5500 #### [facility] [address] [place], [address] ALT [Catalytic activity/Vol] 18 U/L Normal 13-56 [facility] Comment on above: Order Comment: REDRA W. PREVIOUS SPECIMEN REJECTED DUE TOSPECIMEN BEING QNS POSSIBLY CONTAMINATED. 02/14/24 0832Matthew R Stoner. Performed By: #### L 501.5500 #### [facility] [address] [place], [address] AST [Catalytic activity/Vol] 25 U/L Normal 15-37 [facility] Comment on above: Order Comment: REDRA W. PREVIOUS SPECIMEN REJECTED DUE TOSPECIMEN BEING QNS POSSIBLY CONTAMINATED. 02/14/24 0832Matthew R Stoner. Performed By: #### L 501.5500 #### [facility] [address] [place], [address] Bilirubin [Mass/Vol] 0.40 mg/dL Normal 0.20-1.00 [facility] Comment on above: Order Comment: REDRA W. PREVIOUS SPECIMEN REJECTED DUE TOSPECIMEN BEING QNS POSSIBLY CONTAMINATED. 02/14/24 0832Matthew R Stoner. Result Comment: For patients on eltrombopag therapy, use of Dimension Sebastian TBIL is not recommended. Performed By: #### L 501.5500 #### [facility] [address] [place], [address] BUN/CRE 11.9 RATIO Normal 10-20 [facility] Comment on above: Order Comment: REDRA W. PREVIOUS SPECIMEN REJECTED DUE TOSPECIMEN BEING QNS POSSIBLY CONTAMINATED. 02/14/24 0832Matthew R Stoner. Performed By: #### L 501.5500 #### [facility] [address] [place], [address] CA,Total 8.5 mg/dL Normal 8.5-10.1 [facility] Comment on above: Order Comment: REDRA W. PREVIOUS SPECIMEN REJECTED DUE TOSPECIMEN BEING QNS POSSIBLY CONTAMINATED. 02/14/24 0832Matthew R Stoner. Performed By: #### L 501.5500 #### [facility] [address] [place], [address] Chloride [Moles/Vol] 110 mmol/L High 98-107 [facility] Comment on above: Order Comment: REDRA W. PREVIOUS SPECIMEN REJECTED DUE TOSPECIMEN BEING QNS POSSIBLY CONTAMINATED. 02/14/24 0832Matthew R Stoner. Performed By: #### L [id number] #### [facility] [address] [place], [address] CO2 [Moles/Vol] 23.0 mmol/L Normal 21.0-32.0 [facility] Comment on above: Order Comment: REDRA W. PREVIOUS SPECIMEN REJECTED DUE TOSPECIMEN BEING QNS POSSIBLY CONTAMINATED. 02/14/24 0832Matthew R Stoner. Performed By: #### L [id number] #### [facility] [address] [place], [address] Creatinine [Mass/Vol] 3.03 mg/dL High 0.55-1.02 [facility] Comment on above: Order Comment: REDRA W. PREVIOUS SPECIMEN REJECTED DUE TOSPECIMEN BEING QNS POSSIBLY CONTAMINATED. 02/14/24 0832Matthew R Stoner. Result Comment: The validity of the calculated GFR GFRAA in patients over 70 years has not been determined. Clinical correlation is essential. Performed By: #### L [id number] #### [facility] [address] [place], [address] ECRCL 24.83 ml/min Normal [facility] Comment on above: Order Comment: REDRA W. PREVIOUS SPECIMEN REJECTED DUE TOSPECIMEN BEING QNS POSSIBLY CONTAMINATED. 02/14/24 0832Matthew R Stoner. Performed By: #### L [id number] #### [facility] [address] [place], [address] EST GFR - AA 21 mL/min Low >60 [facility] Comment on above: Order Comment: REDRA W. PREVIOUS SPECIMEN REJECTED DUE TOSPECIMEN BEING QNS POSSIBLY CONTAMINATED. 02/14/24 0832Matthew R Stoner. Result Comment: Afri can Mozambican GFR Calc Performed By: #### L [id number] #### [facility] [address] [place], [address] GAP 5 Normal 5-15 [facility] Comment on above: Order Comment: REDRA W. PREVIOUS SPECIMEN REJECTED DUE TOSPECIMEN BEING QNS POSSIBLY CONTAMINATED. 02/14/24 0832Matthew R Stoner. Performed By: #### L [id number] #### [facility] [address] [place], [address] GFR/1.73 sq M.predicted among non-blacks MDRD (S/P/Bld) [Vol rate/Area] 17 mL/min/{1.73_m2} Low >60 [facility] Comment on above: Order Comment: REDRA W. PREVIOUS SPECIMEN REJECTED DUE TOSPECIMEN BEING QNS POSSIBLY CONTAMINATED. 02/14/24 0832Matthew R Stoner. Result Comment: Non- GFR Calc Performed By: #### L [id number] #### [facility] [address] [place], [address] Globulin (S) [Mass/Vol] 3.1 g/dL Normal 2.2-4.2 [facility] Comment on above: Order Comment: REDRA W. PREVIOUS SPECIMEN REJECTED DUE TOSPECIMEN BEING QNS POSSIBLY CONTAMINATED. 02/14/24 0832Matthew R Stoner. Performed By: #### L [id number] #### [facility] [address] [place], [address] Glucose [Mass/Vol] 152 mg/dL High 74-106 [facility] Comment on above: Order Comment: REDRA W. PREVIOUS SPECIMEN REJECTED DUE TOSPECIMEN BEING QNS POSSIBLY CONTAMINATED. 02/14/24 0832Matthew R Stoner. Result Comment: Fast ing Glucose result greater than or equal to 126 mg/dL suggests DIABETES MELLITUS per A.D.A. criteria. Performed By: #### L [id number] #### [facility] [address] [place], [address] Potassium [Moles/Vol] 4.1 mmol/L Normal 3.5-5.1 [facility] Comment on above: Order Comment: REDRA W. PREVIOUS SPECIMEN REJECTED DUE TOSPECIMEN BEING QNS POSSIBLY CONTAMINATED. 02/14/24 0832Matthew R Stoner. Performed By: #### L [id number] #### [facility] [address] [place], [address] Sodium [Moles/Vol] 138 mmol/L Normal 136-145 [facility] Comment on above: Order Comment: REDRA W. PREVIOUS SPECIMEN REJECTED DUE TOSPECIMEN BEING QNS POSSIBLY CONTAMINATED. 02/14/24 0832Matthew R Stoner. Performed By: #### L [id number] #### [facility] [address] [place], [address] T PROT 6.6 g/dL Normal 6.4-8.2 [facility] Comment on above: Order Comment: REDRA W. PREVIOUS SPECIMEN REJECTED DUE TOSPECIMEN BEING QNS POSSIBLY CONTAMINATED. 02/14/24 0832Maagustinw R Stoner. Performed By: #### L [id number] #### [facility] [address] [place], [address] Urea nitrogen [Mass/Vol] 36 mg/dL High 7-18 [facility] Comment on above: Order Comment: REDRA W. PREVIOUS SPECIMEN REJECTED DUE TOSPECIMEN BEING QNS POSSIBLY CONTAMINATED. 02/14/24 0832Mattbeniw R Stoner. Performed By: #### L [id number] #### [facility] [address] [place], [address] ALB Normal 3.2-5.0 [facility] Comment on above: Result Comment: This specimen has been REJECTED due to Laboratory criteria: Quanity Not Sufficient possibly contaminated. PHLEB STAFF has been notified of need of recollection. 02/14/2430 Sameera Leonr Performed By: #### L [id number] #### [facility] [address] [place], [address] ALK P Normal 45-117 [facility] Comment on above: Result Comment: This specimen has been REJECTED due to Laboratory criteria: Quanity Not Sufficient possibly contaminated. PHLEB STAFF has been notified of need of recollection. 02/14/2430 Sameera Leonr Performed By: #### L [id number] #### [facility] [address] [place], [address] ALT Normal 13-56 [facility] Comment on above: Result Comment: This specimen has been REJECTED due to Laboratory criteria: Quanity Not Sufficient possibly contaminated. PHLEB STAFF has been notified of need of recollection. 02/14/2430 Sameera Leonr Performed By: #### L [id number] #### [facility] [address] [place], [address] AST Normal 15-37 [facility] Comment on above: Result Comment: This specimen has been REJECTED due to Laboratory criteria: Quanity Not Sufficient possibly contaminated. PHLEB STAFF has been notified of need of recollection. 02/14/24829 Sameera R Stoner Performed By: #### L [id number] #### [facility] [address] [place], [address] BUN Normal 7-18 [facility] Comment on above: Result Comment: This specimen has been REJECTED due to Laboratory criteria: Quanity Not Sufficient possibly contaminated. PHLEB STAFF has been notified of need of recollection. 02/14/24829 Sameera R Stoner Performed By: #### L [id number] #### [facility] [address] [place], [address] BUN/CRE Normal 10-20 [facility] Comment on above: Result Comment: This specimen has been REJECTED due to Laboratory criteria: Quanity Not Sufficient possibly contaminated. PHLEB STAFF has been notified of need of recollection. 02/14/24829 Sameera R Stoner Performed By: #### L [id number] #### [facility] [address] [place], [address] CA,Total Normal 8.5-10.1 [facility] Comment on above: Result Comment: This specimen has been REJECTED due to Laboratory criteria: Quanity Not Sufficient possibly contaminated. PHLEB STAFF has been notified of need of recollection. 02/14/24829 Sameera R Stoner Performed By: #### L [id number] #### [facility] [address] [place], [address] CL Normal 98-107 [facility] Comment on above: Result Comment: This specimen has been REJECTED due to Laboratory criteria: Quanity Not Sufficient possibly contaminated. PHLEB STAFF has been notified of need of recollection. 02/14/24829 Sameera R Stoner Performed By: #### L [id number] #### [facility] [address] [place], [address] CO2 Normal 21.0-32.0 [facility] Comment on above: Result Comment: This specimen has been REJECTED due to Laboratory criteria: Quanity Not Sufficient possibly contaminated. PHLEB STAFF has been notified of need of recollection. 02/14/24829 Sameera R Stoner Performed By: #### L [id number] #### [facility] [address] [place], [address] CREAT,SERUM Normal 0.55-1.02 [facility] Comment on above: Result Comment: This specimen has been REJECTED due to Laboratory criteria: Quanity Not Sufficient possibly contaminated. PHLEB STAFF has been notified of need of recollection. 02/14/24829 Sameera R Stoner Performed By: #### L [id number] #### [facility] [address] [place], [address] EST GFR Normal >60 [facility] Comment on above: Result Comment: This specimen has been REJECTED due to Laboratory criteria: Quanity Not Sufficient possibly contaminated. PHLEB STAFF has been notified of need of recollection. 02/14/24829 Sameera Casimiro Stoner Performed By: #### L [id number] #### [facility] [address] [place], [address] EST GFR - AA Normal >60 [facility] Comment on above: Result Comment: This specimen has been REJECTED due to Laboratory criteria: Quanity Not Sufficient possibly contaminated. PHLEB STAFF has been notified of need of recollection. 02/14/24829 Sameera R Stoner Performed By: #### L [id number] #### [facility] [address] [place], [address] GAP Normal 5-15 [facility] Comment on above: Result Comment: This specimen has been REJECTED due to Laboratory criteria: Quanity Not Sufficient possibly contaminated. PHLEB STAFF has been notified of need of recollection. 02/14/24829 Sameera R Stoner Performed By: #### L [id number] #### [facility] [address] [place], [address] GLU Normal 74-106 [facility] Comment on above: Result Comment: This specimen has been REJECTED due to Laboratory criteria: Quanity Not Sufficient possibly contaminated. PHLEB STAFF has been notified of need of recollection. 02/14/24829 Sameera R Stoner Performed By: #### L [id number] #### [facility] [address] [place], [address] Potassium Normal 3.5-5.1 [facility] Comment on above: Result Comment: This specimen has been REJECTED due to Laboratory criteria: Quanity Not Sufficient possibly contaminated. PHLEB STAFF has been notified of need of recollection. 02/14/24829 Sameera R Stoner Performed By: #### L [id number] #### [facility] [address] [place], [address] T BILI Normal 0.20-1.00 [facility] Comment on above: Result Comment: This specimen has been REJECTED due to Laboratory criteria: Quanity Not Sufficient possibly contaminated. PHLEB STAFF has been notified of need of recollection. 02/14/24829 Sameera R Stoner Performed By: #### L [id number] #### [facility] [address] [place], [address] T PROT Normal 6.4-8.2 [facility] Comment on above: Result Comment: This specimen has been REJECTED due to Laboratory criteria: Quanity Not Sufficient possibly contaminated. PHLEB STAFF has been notified of need of recollection. 02/14/24829 Sameera R Stoner Performed By: #### L [id number] #### [facility] [address] [place], [address] Comprehensive Metabolic Profil Normal 136-145 [facility] Comment on above: Result Comment: This specimen has been REJECTED due to Laboratory criteria: Quanity Not Sufficient possibly contaminated. PHLEB STAFF has been notified of need of recollection. 02/14/24 0830 Sameera Stock Performed By: #### L [id number] #### [facility] [address] [place], [address] Albumin [Mass/Vol] 4.0 g/dL Normal 3.2-5.0 [facility] Comment on above: Performed By: #### L [id number] #### [facility] [address] [place], [address] Albumin/Globulin [Mass ratio] 1.2 {ratio} Normal 0.9-2.4 [facility] Comment on above: Performed By: #### L [id number] #### [facility] [address] [place], [address] ALK P 101 U/L Normal 45-117 [facility] Comment on above: Performed By: #### L [id number] #### [facility] [address] [place], [address] ALT [Catalytic activity/Vol] 19 U/L Normal 13-56 [facility] Comment on above: Performed By: #### L [id number] #### [facility] [address] [place], [address] AST [Catalytic activity/Vol] 22 U/L Normal 15-37 [facility] Comment on above: Performed By: #### L [id number] #### [facility] [address] [place], [address] Bilirubin [Mass/Vol] 0.40 mg/dL Normal 0.20-1.00 [facility] Comment on above: Result Comment: For patients on eltrombopag therapy, use of Dimension Sebastian TBIL is not recommended. Performed By: #### L [id number] #### [facility] [address] [place], [address] BUN/CRE 12.3 RATIO Normal 10-20 [facility] Comment on above: Performed By: #### L [id number] #### [facility] [address] [place], [address] CA,Total 9.5 mg/dL Normal 8.5-10.1 [facility] Comment on above: Performed By: #### L [id number] #### [facility] [address] [place], [address] Chloride [Moles/Vol] 103 mmol/L Normal 98-107 [facility] Comment on above: Performed By: #### L [id number] #### [facility] [address] [place], [address] CO2 [Moles/Vol] 30.0 mmol/L Normal 21.0-32.0 [facility] Comment on above: Performed By: #### L [id number] #### [facility] [address] [place], [address] Creatinine [Mass/Vol] 2.85 mg/dL High 0.55-1.02 [facility] Comment on above: Result Comment: The validity of the calculated GFR GFRAA in patients over 70 years has not been determined. Clinical correlation is essential. Performed By: #### L [id number] #### [facility] [address] [place], [address] ECRCL 25.87 ml/min Normal [facility] Comment on above: Performed By: #### L [id number] #### [facility] [address] [place], [address] EST GFR - AA 23 mL/min Low >60 [facility] Comment on above: Result Comment: Afri can Moz[place]ican GFR Calc Performed By: #### L [id number] #### [facility] [address] [place], [address] GAP 6 Normal 5-15 [facility] Comment on above: Performed By: #### L [id number] #### [facility] [address] [place], [address] GFR/1.73 sq M.predicted among non-blacks MDRD (S/P/Bld) [Vol rate/Area] 19 mL/min/{1.73_m2} Low >60 [facility] Comment on above: Result Comment: Non- GFR Calc Performed By: #### L [id number] #### [facility] [address] [place], [address] Globulin (S) [Mass/Vol] 3.4 g/dL Normal 2.2-4.2 [facility] Comment on above: Performed By: #### L [id number] #### [facility] [address] [place], [address] Glucose [Mass/Vol] 151 mg/dL High 74-106 [facility] Comment on above: Result Comment: Fast ing Glucose result greater than or equal to 126 mg/dL suggests DIABETES MELLITUS per A.D.A. criteria. Performed By: #### L [id number] #### [facility] [address] [place], [address] Potassium [Moles/Vol] 4.6 mmol/L Normal 3.5-5.1 [facility] Comment on above: Performed By: #### L [id number] #### [facility] [address] [place], [address] Sodium [Moles/Vol] 139 mmol/L Normal 136-145 [facility] Comment on above: Performed By: #### L [id number] #### [facility] [address] [place], [address] T PROT 7.4 g/dL Normal 6.4-8.2 [facility] Comment on above: Performed By: #### L [id number] #### [facility] [address] [place], [address] Urea nitrogen [Mass/Vol] 35 mg/dL High 08-27 [facility] Comment on above: Performed By: #### L [id number] #### [facility] [address] [place], [address] Consultation - Nephrologyon 02-14-2024 Consultation - Nephrology [facility] Medical Records Department [address] [place] [address] Consultation - Nephrology 02/14/24 1804 MR#: [id number] Acct: [id number] Name: TERESA CASH Rep #: [id number] : 1975 48 From: Criselda South MD PCP: GALILEA WIHTAKER Status:ADM IN Location: [place] [id number] Assessment Plan Assessment/Plan (1) GOPAL (acute kidney injury): (2) Proteinuria: PLAN: Plan Impression/Plan: TERESA CASH, is a 48-year-old female with past history of hypertension, GERD, alopecia, and atrophic vaginitis. Patient presented to the hospital on 02/14/2024 with several months history of epigastric abdominal pain. Pain became severe enough associated with bilateral flank tenderness that she presented to the hospital on 02/14/2024. During workup of abdominal/flank pain, patient was found to have GOPAL with serum creatinine of 3.03 mg/dL associated with proteinuria. Nephrology is asked to see the patient because of GOPAL/proteinuria. Acute kidney injury. There is no prior history of chronic kidney disease. Renal function was normal as recently as August 2023. Serum creatinine was 0.64 mg/dL on 08/22/2023. Symptoms on presentation appears to be sudden. She was in her usual state of health until less than 24 hours prior to presentation. Patient presented with serum creatinine of 2.85 mg/dL on 02/14/2024 at 12:32 AM. Serum creatinine has increased to 3.03 mg/dL at 8:48 AM on the same day. There is no evidence of obstructive uropathy. Both CT abdomen and renal ultrasound were negative for hydronephrosis. Urinalysis shows significant proteinuria. There is 1+ occult blood on dipstick, but there is no hematuria on microscopic examination of urinalysis. There is significant proteinuria on UPCR as well (see below). At this point, the most likely explanation for GOPAL would be volume depletion particularly since she was on ARB and spironolactone prior to presentation. Will check CK to make sure were not missing rhabdomyolysis although there is lack of symptoms for rhabdo. I agree with volume expansion with isotonic IV fluid. There is no urgent need for kidney replacement therapy. Recheck renal function, volume status, acid-base status and electrolytes again tomorrow. Proteinuria. Urine protein to creatinine ratio (UPCR) is 7 g/g despite having been on ARB and MRA prior to admission. I cannot reconcile proteinuria with this presentation. Proteinuria seems to be isolated without even microscopic hematuria. This is unusual for acute GN. There is no anemia or hypercalcemia to suggest paraprotein disease. Moreover, although patient has nephrotic range proteinuria with UPCR, her serum albumin is normal at 3.5 g/dL. There is also no significant edema, so I have low suspicion for nephrotic syndrome at this point. Recheck urinalysis and UPCR again tomorrow. I will also check urine albumin creatinine ratio to see if there is any discrepancy between total proteinuria and albuminuria. If significant amount of urine protein persists, I will check serologies. If renal function continue to worsen despite volume expansion, the patient was made aware that she may need a kidney biopsy. HPI Consult Data Date of Consult: 02/14/24 HPI Narrative Reason for Consultation: Acute kidney injury HPI Narrative: TERESA CASH, is a 48-year-old female with past history of hypertension, gastritis, alopecia, and atrophic vaginitis. Patient presented to the hospital on 02/14/2024 with severe abdominal and bilateral flank pain which started on the day of presentation. Patient has a history of chronic abdominal pain which waxes and wane. The patient has been evaluated by end finder forming department in [place], [place], where she used to live. She was told that she has gastritis. Abdominal pain which started 1 day prior to presentation. Abdominal pain occurred in the afternoon of 02/13/2024 while she was at work. At first, the patient thought that pain was musculoskeletal. She was able to eat dinner without nausea vomiting prior to presentation. However, patient woke up at around midnight on 02/14/2024 with severe pain which led her to present to the ED. During the workup in ED, patient was found to have serum creatinine of 2.85 mg/dL at 12:30 AM on 02/14/2024. Serum creatinine increased to 3.03 mg/dL 8 hours later. Nephrology is asked to see the patient because of GOPAL. Last available serum creatinine prior to this admission was from August 2023. At that time, serum creatinine was 0.64 mg/dL on 08/22/2023. The patient has been in her usual state of health prior to the afternoon of the day before presentation. There has been no chronic nausea, vomiting or diarrhea prior to presentation. She denies gross hematuria. There has been no edema of the extremities. She denies urinary frequency, urgency, hesitancy or incontinence. She has not noticed urinary frothing until (more content not included)... Normal [facility] Creatinine, Urineon 02-13-19 25 URINE CREAT 51.10 mg/dL Normal NO RANGE EST. [facility] Comment on above: Performed By: #### L 501.1930, L502.0300, L502.0250 #### [facility] [address] [place], [address] DNA double strand Ab Qn (S)O rdered By: Susy Carranza on 02-14-2024 Anti-Double Strand DNA Antibody <1 IU/mL 0-9 [facility] Comment on above: Negative <5 Equivoca l 5 - 9 Positive >9Previous reported result: TNP IU/mLEdited by: ADRIANA on 02/16/24:1407 AMENDED REPORT 02/16/24 1407 dsDNA AB previously reported as: Test not performed Emergency Department Summary on 02-14-2024 Emergency Department Summary [facility] Medical Records Department [address] [place] [address] Emergency Department Summary 02/14/24 MR#: [id number] Acct: [id number] Name: ETRESA CASH Rep #: [id number] : 1975 48 From: Bonnie Weber DO PCP: GALILEA WHITAKER Status:ADM IN Location: [facility] [id number] HPI HPI - GI History of Present Illness Chief Complaint: Flank Pain Informant: patient Narrative Narrative: Patient is a 48-year-old female presenting with sudden onset of bilateral mid back pain with associated nausea and vomiting. Patient states she felt fine she had of work today and she ate dinner with her . That is why getting meatballs and she had a glass of wine. She went to bed and noticed that her heart rate was a little fast. She did have some back pain and took a tizanidine thinking it was a muscle spasm and tried heat. She then had multiple episodes of vomiting. No report of blood in her vomit. She notes that she did have a bowel movement today. Reports chronic constipation. Has had this constant ache in her back and then will have a more severe sharp cramping pain in her lower abdomen and then vomit. Has had a history of prior appendectomy. Denies any sick contacts. Denies any fever or chills. No urinary symptoms reported. No other complaints or concerns at this time. [facility] Medical History Hair loss Fatigue Hot flashes Atrophic vaginitis Family history of bladder cancer Family history of colon cancer in father Family history of breast cancer Chronic gastritis Ganglion cyst Ovarian cyst History of depression Hypertension Home Medications ???Medication ???Instructions ???Recorded ???Last Taken ???Type cholecalciferol (vitamin D3) 250 250 mcg PO QWEEK REPLACEMENT 12/15/19 Unknown History mcg (10,000 unit) capsule cyanocobalamin (vitamin B-12) 1,000 mcg PO DAILY 12/15/19 Unknown History 1,000 mcg capsule olmesartan 20 mg tablet (Benicar) 20 mg PO DAILY 12/15/19 Unknown History cetirizine 10 mg capsule (Zyrtec) 10 mg PO DAILY PRN allergic 11/16/21 Unknown History symptoms ondansetron 4 mg disintegrating 4 mg PO Q8H PRN PRN Nausea #10 tabs 04/20/23 02/10/24 Rx tablet estradiol 0.01% (0.1 mg/gram) See Rx Instructions vaginal 01/27/24 Unknown Rx vaginal cream .COMPLEX #42.5 grams pantoprazole 20 mg tablet,delayed 20 mg PO DAILY 02/14/24 Unknown History release spironolactone 50 mg tablet 50 mg PO DAILY 02/14/24 Unknown History tizanidine 4 mg tablet 0 - 12 mg PO QHS 02/14/24 Unknown History Allergy/AdvReac Type Severity Reaction Status Date / Time clarithromycin (From Biaxin) Allergy Mild other Verified 02/14/24 00:29 erythromycin base (From Allergy Mild other Verified 02/14/24 00:29 Erythrocin) Family History Mother Bladder cancer Aunt Cancer appendix Father Cancer stomach Suicide Grandmother Cancer abdom. 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[employer] [facility] ED Constitutional Constitutional ED: Denies chills or fever(s) Cardiovascular Cardiovascular: Denies chest pain Respiratory/Chest Respiratory/Chest: Denies cough or dyspnea Gastrointestinal Gastrointestinal: Reports abdominal pain, constipation, nausea and vomiting Genitourinary Genitourinary ED: Denies dysuria or hematuria Musculoskeletal Musculoskeletal: Reports back pain; Denies myalgias Integumentary Denies rash Neurologic Neurologic: Denies weakness Hematologic/Lymphatic Hematologic/Lymphatic : Denies easy bleeding or easy bruising EXAM Physical Exam Const Vital Signs: 02/14/24 00:29 02/14/24 02:30 02/14/24 03:50 Temperature 97.8 F 98.5 F Temperature Source Oral Pulse Rate 98 91 79 Respiratory Rate 18 18 16 Blood Pressure 140/76 H 127/86 H 125/79 H Blood Pressure Mean 97 99 94 Pulse Ox 98 96 98 Oxygen Delivery Method Room Air Room Air 02/14/24 04:00 Temperature Temperature Source Pulse Rate 74 Respiratory Rate 16 Blood Pressure 125/79 H Blood Pressure Mean 94 Pulse Ox 99 Oxygen Delivery Method Room Air Positive well nourished and well developed General Appearance ED: well developed and NAD; Negative for pallor HEENT Reports moist mucous membranes Neck supple Resp (more content not included)... Normal [facility] Erythrocyte Sed Rateon 02-13 SED RATE 8 mm/hr Normal 0-30 [facility] Comment on above: Performed By: #### L [id number] #### [facility] [address] [place], [address] Erythrocyte sedimentation ra teOrdered By: Susy Carranza on 02-14-2024 ESR (Bld) [Velocity] 8 mm/h 0-30 [facility] H AND P Exam - Hospitaliston 02-14-2024 H&P Exam - Hospitalist [facility] Medical Records Department [address] [place] [address] H P Exam - Hospitalist 02/14/24 0403 MR#: [id number] Acct: [id number] Name: TERESA CASH Rep #: [id number] : 1975 48 From: Susy Carranza DO PCP: GALILEA WHITAKER Status:ADM IN Location: [facility] [place] [id number] HPI - General General Date of Admission: 02/14/24 Date of Service: 02/14/24 Chief Complaint: Flank pain HPI Narrative TERESA CASH, is a 48 F who presented to the emergency department at [facility] on 02/14/2024 with a chief complaint of flank pain. Patient states that for several months now she has been having epigastric abdominal pain and mid abdominal pain every time she eats. She follows with gastroenterology and has appointment upcoming in March. She has asked them about this and they told her it was probably her new medications. At this point the medications were started sometime ago she states. She stated initially she lost quite a bit of weight because she had been able to eat as much for the last several weeks she has gained back 25 pounds. She is not having any swelling. She reported that she was feeling fairly close to her baseline and went out to dinner and was able to tolerate dinner without a problem. She was able to have a glass of wine and then went home and started having back pain that was bilateral flanks. She thought that she had some muscular irritation so she soaked in the bathtub and took 2 ibuprofen but the pain persisted and slowly worsened. She stated some of the most severe pain she is ever had so she came emergency department to be evaluated. She indicated the pain was so horrible that she had vomiting. She said no other nausea, vomiting or diarrhea today. She has no known fever or chills. She has had no rashes. She has not been on any antibiotics or had any viral illnesses/bacterial illnesses lately. She been on Protonix for considerable amount of time and takes Aldactone for hair loss and olmesartan for her blood pressure. She states she has been urinating more volume than usual and seems to have more frequency. She is having some urination at night which is atypical for her. She does states she also has constipation issues at baseline but seems like it is more significant lately. She has had no rashes. Patient denies any supplement use. Vital signs on presentation showed a temperature of 97.8, heart rate 98, blood pressure 140/76 respiratory rate 18 and pulse ox was 98% on room air. Her CBC was unremarkable except for left shift with a 77.8% neutrophilia. Chemistry panel had normal electrolytes but her BUN was 35 and her serum creatinine was 2.85. Serum glucose was 150 nonfasting. Liver function was unremarkable. Lipase was normal at 58. Her UA showed a specific gravity 1.01. She had 500 protein in her urine with small glucose and occult blood but no white cells red cells or bacteria were noted. Urine sodium was 59. CT of the abdomen pelvis shows bilateral nephritic stranding that is nonspecific and can be seen with acute processes such as pyelonephritis or other inflammatory processes, she had no urolithiasis or hydronephrosis. No other abnormalities were noted. She was given pain medication and IV fluids in the emergency department and given the severity of her renal dysfunction request for admission was made. [facility] Medical History Hair loss Fatigue Hot flashes Atrophic vaginitis Family history of bladder cancer Family history of colon cancer in father Family history of breast cancer Chronic gastritis Ganglion cyst Ovarian cyst History of depression Hypertension Home Medications ???Medication ???Instructions ???Recorded ???Last Taken ???Type cholecalciferol (vitamin D3) 250 250 mcg PO QWEEK 12/15/19 Unknown History mcg (10,000 unit) capsule cyanocobalamin (vitamin B-12) 1,000 mcg PO DAILY 12/15/19 Unknown History 1,000 mcg capsule olmesartan 20 mg tablet (Benicar) 20 mg PO DAILY 12/15/19 Unknown History cetirizine 10 mg capsule (Zyrtec) 10 mg PO DAILY PRN allergic 11/16/21 Unknown History symptoms ondansetron 4 mg disintegrating 4 mg PO Q8H PRN PRN Nausea #10 tabs 04/20/23 02/10/24 Rx tablet estradiol 0.01% (0.1 mg/gram) See Rx Instructions vaginal 01/27/24 Unknown Rx vaginal cream .COMPLEX #42.5 grams pantoprazole 20 mg tablet,delayed 20 mg PO DAILY 02/14/24 Unknown History release spironolactone 50 mg tablet 50 mg PO DAILY 02/14/24 Unknown History tizanidine 4 mg tablet 0 - 12 mg PO QHS 02/14/24 Unknown History Allergy/AdvReac Type Severity Reaction Status Date / Time clarithromycin (From Biaxin) Allergy Mild other Verified 02/14/24 00:29 erythromycin base (From Allergy Mild other Verified 02/14/24 00:29 Erythrocin) Family History (Reviewed 0 (more content not included)... Normal [facility] Hemoglobin A1con 02-14-2024 HbA1c (Bld) [Mass fraction] 5.2 % Normal 3.8-5.6 [facility] Comment on above: Result Comment: Norm al < 5.7 % Prediabetic 5.7 - 6.4 % Diabetic >or= 6.5 % Please note range changes. Performed By: #### L [id number] #### [facility] [address] [place], [place], [id number] Hemoglobin A1c percentageOrd ered By: Susy Carranza on 02-14-2024 HbA1c (Bld) [Mass fraction] 5.2 % 3.8-5.6 [facility] Comment on above: Normal < 5.7 % Predi abetic 5.7 - 6.4 % Diabetic >or= 6.5 % Please note range changes. Kathy-1 antibody assayOrdered B y: Susy Carranza on 02-14-2024 KATHY-1 Antibody <0.2 AI 0.0-0.9 [facility] Comment on above: Previous reported re sult: TNP AIEdited by: ADRIANA on 02/16/24:1407 AMENDED REPORT 02/16/24 1407 ANTI-KATHY previously reported as: Test not performed Kidney and Bladderon 025 Kidney and Bladder [facility] Imaging Services [address] [place], [place] [address] Kidney and Bladder MR#: [id number] Acct: [id number] Name: TERESA CASH Rep #: [id number] : 1975 F 48 From: Bebo Ng DO PCP: GALILEA WHITAKER Status: ADM IN Study: Kidney and Bladder Date of Exam: 02/14/24 Exam# [id number] Ordering Dr: Susy Carranza DO [id number] INDICATION: GOPAL EXAMINATION: Ultrasound US Kidney(s) complete (eg, kidneys and bladder) TECHNIQUE: Barrera scale and color doppler images were obtained of the kidneys. COMPARISON: __ FINDINGS: RIGHT KIDNEY: 11.0 x 5.3 x 5.5 cm. The cortex is 21 mm. Prominent pyramids with echogenic cortex. There is no hydronephrosis. Trace perinephric fluid. LEFT KIDNEY: 11.8 x 5.5 x 5.8 cm. The cortex is 23 mm.. Prominent pyramids with echogenic cortex. There is no hydronephrosis. Trace perinephric fluid. URINARY BLADDER: No acute abnormality. US/Kidney and Bladder IMPRESSION: Trace perinephric fluid bilaterally. Bilateral prominent pyramids with echogenic cortex in the kidneys. Medical renal disease cannot be excluded. Electronically Signed: Bebo Ng DO at 16:13 EST , CC: GALILEA WHITAKER; Dr. Susy Carranza DO Lead Technician: Signed Normal [facility] - Chemistry and C hemistry - challengeOrdered By: Ilya Peña on 02-14-2024 AST [Catalytic activity/Vol] 25 U/L 15-37 [facility] Lipaseon 02-14-2024 Lipase [Catalytic activity/Vol] 58 U/L Normal 13-75 [facility] Comment on above: Result Comment: Sherron nobles note: LIPASE revised reference range effective 22. New Lipase methodology. Expected to produce lower values than the previous assay method. NEW Reference Range: 13 - 75 U/L Performed By: #### L [id number] #### [facility] [address], [place], [address] Lipase measurementOrdered By : Bonnie Weber on 02-14-2024 Lipase [Catalytic activity/Vol] 58 U/L 13-75 [facility] Comment on above: Please note:LIPASE r evised reference range effective 22. New Lipase methodology. Expected to produce lower values than the previous assay method. NEW Reference Range: 13 - 75 U/L Magnesiumon 02-14-2024 Magnesium [Mass/Vol] 2.3 mg/dL Normal 1.6-2.6 [facility] Comment on above: Order Comment: Comme nts: SPECIMEN #2 'TROP' Serial specimen #1, #2 or #3: 2 Performed By: #### L 501.4020 #### [facility] [address] [place], [place], [address] Magnesium measurementOrdered By: Ilya Peña on 02-14-2024 Magnesium [Mass/Vol] 2.3 mg/dL 1.6-2.6 [facility] Microalb:Creat Ratio,Random URon 02-14-2024 Creatinine [Mass/Vol] 51.10 mg/dL Normal NO RAN GE EST. [facility] Comment on above: Performed By: #### L 501.1930, L502.0300, L502.0250 #### [facility] [address] [place], [address] MALB:CRE 868.9 mg/g CRE High <30 mg/g CRE [facility] Comment on above: Performed By: #### L 501.1930, L502.0300, L502.0250 #### [facility] [address] [place], [address] MICROALBUMIN,UR 444.0 mg/L Normal NO RANGE EST. [facility] Comment on above: Performed By: #### L 501.1930, L502.0300, L502.0250 #### [facility] [address] [place], [address] Neutrophil cytoplasmic Ab.cl assic Qn (S)Ordered By: Susy Carranza on 02-14-2024 Cytoplasmic ANCA (c-ANCA) Antibody <1:20 titer Neg:<1:20 [facility] Neutrophil cytoplasmic Ab.pe rinuclear IF (S) [Titer]Ordered By: Susy Carranza on 02-14-2024 Perinuclear ANCA (p-ANCA) Antibody <1:20 titer Neg:<1:20 [facility] Comment on above: The presence of posi tive fluorescence exhibiting P-ANCA orC-ANCA patterns alone is not specific for the diagnosis ofWegener's Granulomatosis (WG) or microscopic polyangiitis.Decisions about treatment should not be based solely onANCA IFA results. The International ANCA Group Consensusrecommends follow up testing of positive sera with both IA-3 and MPO-ANCA enzyme immunoassays. As many as 5% serumsamples are positive only by EIA. Ref. AM J Clin [id number];111:507-513. Phosphoruson 02-14-2024 Phosphate [Mass/Vol] 4.2 mg/dL Normal 2.5-4.9 [facility] Comment on above: Order Comment: CURRY Sullivan PREVIOUS SPECIMEN REJECTED DUE TOSPECIMEN BEING QNS POSSIBLY CONTAMINATED. 02/14/24 0832Sameera Guzman Performed By: #### L 501.5500 #### [facility] [address] [place], [address] Phosphorus measurementOrdere d By: Ilya Peña on 02-14-2024 Phosphorus Level 4.2 mg/dL 2.5-4.9 [facility] Protein+Creatinine Ratio,Uri neon 02-14-2024 PROT:CRE RATIO 7035 mg/g CRE High 0-200 [facility] Comment on above: Performed By: #### L 501.0900 #### [facility] [address] [place], [address] Protein (U) [Mass/Vol] 305.3 mg/dL High <11.9 [facility] Comment on above: Performed By: #### L 501.0900 #### [facility] [address] [place], [address] UR CREAT 43.40 mg/dL Normal NO RANGE EST. [facility] Comment on above: Performed By: #### L 501.0900 #### [facility] [address] [place], [address] Protein, Urine (Random)on Protein (U) [Mass/Vol] 61.6 mg/dL High <11.9 [facility] Comment on above: Performed By: #### L 501.1930, L502.0300, L502.0250 #### [facility] [address] [place], [address] COIN PURSE FRAMER abOrdered By: Susy Moreno on 02-14-2024 COIN PURSE FRAMER Antibody <0.2 AI 0.0-0.9 [facility] Comment on above: Previous reported re sult: TNP AIEdited by: ADRIANA on 02/16/24:1407 AMENDED REPORT 02/16/24 1407 COIN PURSE FRAMER Ab previously reported as: Test not performed Random urine microalbumin me asurementOrdered By: Criselda South on 02-14-2024 Urine Random Microalbumin 444.0 mg/L NO RANGE EST. [facility] SCL-70 extractable nuclear A b Qn (S)Ordered By: Susy Carranza on 02-14-2024 Scl-70 (Scleroderma) Antibody <0.2 AI 0.0-0.9 [facility] Comment on above: Previous reported re sult: TNP AIEdited by: ADRIANA on 02/16/24:1407 AMENDED REPORT 02/16/241406 ANTISCLER previously reported as: Test not performed SS-A IgG antibody assayOrder ed By: Susy Carranza on 02-14-2024 SS-A/Ro IgG Antibody < 0.2 AI 0.0-0.9 [facility] Comment on above: Previous reported re sult: TNP AIEdited by: ADRIANA on 02/16/24:1407 AMENDED REPORT 02/16/241406 Anti-SS-A previously reported as: Test not performed SS-B IgG antibody assayOrder ed By: Susy Carranza on 02-14-2024 SS-B/La IgG Antibody < 0.2 AI 0.0-0.9 [facility] Comment on above: Previous reported re sult: TNP AIEdited by: ADRIANA on 02/16/24:1407 AMENDED REPORT 02/16/241406 Anti-SS-B previously reported as: Test not performed Serum globulin measurementOr dered By: Ilya Peña on 02-14-2024 Globulin (S) [Mass/Vol] 3.1 g/dL 2.2-4.2 [facility] Serum or plasma alanine torres otransferase (ALT) measurementOrdered By: Ilya Peña on 02-14-2024 ALT [Catalytic activity/Vol] 18 U/L 13-56 [facility] Serum or plasma albumin zaire urement (mass/volume)Ordered By: Ilya Peña on 02-14-2024 Albumin [Mass/Vol] 3.5 g/dL 3.2-5.0 [facility] Serum or plasma alkaline charissa sphatase measurementOrdered By: Ilya Peña on 02-14-2024 ALP [Catalytic activity/Vol] 85 U/L 45-117 [facility]rix antibody assayOrdered By: Susy Carranza on 02-14-2024 SM Antibody <0.2 AI 0.0-0.9 [facility] Comment on above: Previous reported re sult: TNP AIEdited by: ADRIANA on 02/16/24:1407 AMENDED REPORT 02/16/24 1407 HENDRIX Ab previously reported as: Test not performed Sodium urOrdered By: Susy Carranza on 02-14-2024 Sodium (U) [Moles/Vol] 59 mmol/L Not Establ. [facility] TSH QnOrdered By: Ilya wu on 02-14-2024 Thyroid Stimulating Hormone (TSH) 0.888 uIU/mL 0.358-3.740 [facility] Thyroid Stim Hormone (TSH)on 02-14-2024 TSH 0.888 uIU/mL Normal 0.358-3.740 [facility] Comment on above: Order Comment: Comme nts: SPECIMEN #2 'TROP' Serial specimen #1, #2 or #3: 2 Performed By: #### L 501.4020 #### [facility] [address] [place] [address], [address] Total hemolytic (CH50) compl ement assayOrdered By: Susy Carranza on 02-14-2024 Total Complement (CH50) 38 U/mL Low >41 [facility] Comment on above: Age Male Female 1 - 30 days Not Estab. Not Estab. 31 days - 6 months >32 >20 7 months - 17 years >39 >39 >17 years >41 >41 NOTE: The adult (">17 years") reference interval range is used to flag abnormals on this report. If the patient is 17 years old or younger, use the table above to determine out of range values.Performed at: [facility] [id number] Director: Mitchell Briggs PhD, Phone: [phone] Total proteinOrdered By: North Peña on 02-14-2024 Protein [Mass/Vol] 6.6 g/dL 6.4-8.2 [facility] Urinalysis, Completeon 02-13 EPI,SQUAMOUS 0-5 SEEN Normal 5-10 [facility] Comment on above: Order Comment: CLEAN CATCH Performed By: #### L 501.5500 #### [facility] [address] [place], [address] RBC 0-5 SEEN Normal 0-5 [facility] Comment on above: Order Comment: CLEAN CATCH Performed By: #### L 501.5500 #### [facility] [address] [place], [address] WBC 0-5 SEEN Normal 0-5 [facility] Comment on above: Order Comment: CLEAN CATCH Performed By: #### L 501.5500 #### [facility] [address] [place], [address] BACTERIA 0 SEEN Normal None Seen [facility] Comment on above: Order Comment: CLEAN CATCH Performed By: #### L 501.5500 #### [facility] [address] [place], [address] Mucus Ql (Urine sed) 0 SEEN Normal [facility] Comment on above: Order Comment: CLEAN CATCH Performed By: #### L 501.5500 #### [facility] [address] [place], [address] BACTERIA 0 SEEN Normal None Seen [facility] Comment on above: Order Comment: CLEAN CATCH Performed By: #### L 501.9985 #### [facility] [address] [place], [address] EPI,SQUAMOUS 0 SEEN Normal 5-10 [facility] Comment on above: Order Comment: CLEAN CATCH Performed By: #### L 501.9985 #### [facility] [address] [place], [address] Mucus Ql (Urine sed) 0 SEEN Normal [facility] Comment on above: Order Comment: CLEAN CATCH Performed By: #### L [id number] #### [facility] [address] [place], [address] RBC 0 SEEN Normal 0-5 [facility] Comment on above: Order Comment: CLEAN CATCH Performed By: #### L [id number] #### [facility] [address] [place], [address] WBC 0 SEEN Normal 0-5 [facility] Comment on above: Order Comment: CLEAN CATCH Performed By: #### L [id number] #### [facility] [address] [place], [address] Urine Sodiumon 02-14-2024 Sodium (U) [Moles/Vol] 59 mmol/L Normal Not Establ. [facility] Comment on above: Performed By: #### L 501.5500 #### [facility] [address] [place], [place], [address] Urine albumin/creatinine rat io for detection of microalbuminuriaOrdered By: Criselda South on 02-14-2024 Urine Microalbumin/Creatinine Ratio 868.9 mg/g CRE High <30 [facility] Trade Manager Office Visit Reporton 01-27-2024 Trade Manager Office Visit Report [facility] [address], [address] [place] [address] OFFICE VISIT Date of Service: 01/27/24 MR#: [id number] Acct: [id number] Name: TERESA CASH Rep #: [id number] : 1975 Provider: LAMAR wilkerson Age/Sex: 48/F Location: [facility] [place] Status: Signed Intake Vital Signs 07/31/23 13:16 01/27/24 08:34 01/27/24 08:40 Height 5 ft 8 in 5 ft 8 in 5 ft 8 in Weight: 165 lb 4 oz BMI 25.1 BP 110/82 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 Complaint: Annual Manager Transfer Required: No Is patient in pain?: No Allergies clarithromycin (From Biaxin) Allergy (Mild, Verified 01/27/24 08:33) other erythromycin base (From Erythrocin) Allergy (Mild, Verified 01/27/24 08:33) other Medications ???Medication ???Instructions ???Recorded ???Confirmed ???Type cholecalciferol (vitamin D3) 250 250 mcg PO QWEEK 12/15/19 01/27/24 History mcg (10,000 unit) capsule cyanocobalamin (vitamin B-12) 1,000 mcg PO DAILY 12/15/19 01/27/24 History 1,000 mcg capsule olmesartan 20 mg tablet (Benicar) 20 mg PO DAILY 12/15/19 01/27/24 History tizanidine 6 mg capsule 6 mg PO QHS 12/15/19 01/27/24 History cetirizine 10 mg capsule (Zyrtec) 10 mg PO DAILY PRN allergic 11/16/21 01/27/24 History symptoms ivermectin 1 % topical cream 1 applic topical DAILY 11/16/21 01/27/24 History oxymetazoline 1 % topical cream 1 applic topical DAILY PRN rash 01/23/23 01/27/24 History (Rhofade) pantoprazole 40 mg granules 20 mg PO DAILY 01/23/23 01/27/24 History delayed-release for susp in packet ondansetron 4 mg disintegrating 4 mg PO Q8H PRN PRN Nausea #10 tabs 04/20/23 01/27/24 Rx tablet estradiol 0.01% (0.1 mg/gram) See Rx Instructions vaginal 01/27/24 01/27/24 Rx vaginal cream .COMPLEX #42.5 grams Is last menstrual period known: Yes Last Menstrual Period: 08/13/23 Post menopausal: No Patient : No : No PFSH Medical History Chronic gastritis Ganglion cyst Ovarian cyst History of depression Hypertension Surgical History Hx of appendectomy Family History Mother Bladder cancer Aunt Cancer appendix Father Cancer stomach Suicide Grandmother Cancer abdom. 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 Still with some fatigue but other symptoms we discussed in July have improved. Did have menses in August and then light spotting last month. Saw derm and using medication that has helped hair loss. Dyspareunia due to dryness has worsened Last PAP: 2019 History of abnormal PAP: no Last mammogram: today History of abnormal mammogram: no Colon cancer screenin-does Q3 yr Female Reproductive History Last Menstrual Period: 08/13/23 Questions: metorrhagia: No, sexually active: Yes, dyspareunia: Yes and PCB: No ROS Const Constitutional: Denies fatigue, weight gain or weight loss Cardio Card: Denies chest pain Resp Resp: Denies cough or dyspnea on exertion GI GI: Denies abdominal pain, bloating, change in stool character, constipation or vomiting : Reports as per HPI; Denies difficulty voiding, pelvic pain, urinary frequency, urinary incontinence, urinary urgency, vaginal discharge or vaginal pruritus Exam Const General: cooperative, healthy appearing, no acute distress and well developed Orientation: alert, oriented to person and oriented to place HENWV Head: normal to inspection Neck Neck: normal visual inspection Thyroid: thyroid normal Lymphatic: no lymphadenopathy noted Chest Breast inspection: normal inspection of the breasts and normal inspection of the axillae Breast palpation: normal palpation of the breasts, normal palpation of the axillae and no axillary lymphadenopathy Resp Effort Inspection: normal respiratory effort GI Palpation: soft, no masses and nontender Rectal Exam: deferred External Female Exam: normal external appearance and normal appearance of the urethra Urethra: normal (more content not included)... Normal [facility] SCRN MAMM (CAD)W/ALLI BILATo n 01-27-2024 SCRN MAMM (CAD)W/ALLI BILAT [facility] Imaging Services [address] [place] [address] [id number] SCRN MAMM (CAD)W/ALLI BILAT MR#: [id number] Acct: [id number] Name: TERESA CASH Rep #: [id number] : 1975 F 48 From: Ash hensley MD PCP: Care Physician,No Primary Status: [facility] Study: SCRN MAMM (CAD)W/ALLI BILAT Date of Exam: 01/10 09/02 Exam# [id number] Ordering Dr: Mable Mckeon DIRECTOR FIELD SERVICES DIRECTOR FIELD SERVICES -C [id number] MAMMOGRAPHY - BILATERAL SCREENING REASON FOR EXAM: Female, 48 years old. Routine annual screening examination. PERTINENT HISTORY: Non-contributory. Prior left breast cyst aspiration. TECHNIQUE: Digital bilateral breast alli (3D mammographic acquisition) in the CC and MLO projections. 2-D mediolateral oblique (MLO) and craniocaudad (CC) views of both breasts were obtained. CAD: Full Field Digital Mammography with Computer Added Detection was performed. COMPARISON: Comparison is made with prior study dated January 23, 2023 and December 28, 2021. FINDINGS: Breast Composition: The breasts are heterogeneously dense, which may obscure small masses. There are no dominant masses or suspicious calcifications. Stable small bilateral axillary lymph nodes. No other significant abnormalities are identified. There has been no significant change since the prior study. BI/SCRN MAMM (CAD)W/ALLI BILAT IMPRESSION: Stable bilateral screening mammogram. Yearly follow-up mammogram recommended. (A) ASSESSMENT CATEGORY: BIRADS Category 2: Benign. A letter regarding these results will be sent to the patient by the facility within 30 days. Approximately 10% of breast cancers are not detected by mammography. A normal mammogram should not delay biopsy of a clinically suspicious abnormality. [id number] Electronically Signed: Ash Martínez MD at 9:54 EST , CC: LAMAR Mckeon; No Primary Care Physician Lead Technician: Signed Normal [facility] CBC WITH AUTO DIFFERENTIALon 11-21-2023 AUTO NRBC 0.0 % Normal [facility] Comment on above: Performed By: #### L [id number] #### [facility] [address] [place] [address] Ilya Travis M.D. [id number] AUTO NRBC ABS COUNT 0.00 K/mcL Normal 0.00-0.00 [facility] Comment on above: Performed By: #### L [id number] #### [facility] [address] [place] [address] Ilya Travis M.D. [id number] BASOPHILS ABSOLUTE COUNT 0.04 K/mcL Normal 0.00-0.30 [facility] Comment on above: Performed By: #### L [id number] #### [facility] [address] [place] [address] Ilya Travis M.D. [id number] Basophils/100 WBC (Bld) 0.7 % Normal R [facility] Comment on above: Performed By: #### L [id number] #### [facility] [address] [place] [address] Ilya Travis M.D. [id number] Eosinophils (Bld) [#/Vol] 0.17 10*3/uL Normal 0.00-0.5 0 [facility] Comment on above: Performed By: #### L [id number] #### [facility] [address] [place] [address] Ilya Travis M.D. [id number] Eosinophils/100 WBC (Bld) 2.9 % Normal [facility] Comment on above: Performed By: #### L [id number] #### [facility] [address] [place] [address] Ilya Travis M.D. [id number] Erythrocyte distribution width (RBC) [Ratio] 12.3 % Normal 11.6-14.8 [facility] Comment on above: Performed By: #### L [id number] #### [facility] [address] [place] [address] Ilya Travis M.D. [id number] Hematocrit (Bld) [Volume fraction] 40.5 % Normal 36.0-46.0 [facility] Comment on above: Performed By: #### L [id number] #### [facility] [address] [place] [address] Ilya Travis M.D. [id number] Hemoglobin (Bld) [Mass/Vol] 13.3 g/dL Normal 12.0-16.0 [facility] Comment on above: Performed By: #### L [id number] #### [facility] [address] [place] [address] Ilya Travis M.D. [id number] IG ABSOLUTE 0.01 K/mcL Normal 0.00-0.30 [facility] Comment on above: Performed By: #### L [id number] #### [facility] [address] [place] [address] Ilya Travis M.D. [id number] IG PERCENT 0.20 % Normal [facility] Comment on above: Result Comment: The IG parameter is the percentage of metamyelocytes, myelocytes and promyelocytes. An immature granulocyte count (IG) of 1% or more suggests the possibility of infection, an IG count of 3% is very likely related to an infection. Performed By: #### L [id number] #### [facility] [address] [place], [place] [address] Ilya Travis M.D. [id number] Lymphocytes (Bld) [#/Vol] 1.95 10*3/uL Normal 0.90-4.0 0 [facility] Comment on above: Performed By: #### Shubham [id number] #### [facility] [address] [place] [address] Ilya Travis M.D. [id number] Lymphocytes/100 WBC (Bld) 33.6 % Normal [facility] Comment on above: Performed By: #### Shubham [id number] #### [facility] [address] [place] [address] Ilya Travis M.D. [id number] MCH (RBC) [Entitic mass] 32.5 pg Normal 26.0-34.0 [facility] Comment on above: Performed By: #### Shubham [id number] #### [facility] [address] [place] [address] Ilya Travis M.D. [id number] MCV (RBC) [Entitic vol] 99.0 fL Normal 80.0-100.0 R [facility] Comment on above: Performed By: #### L [id number] #### [facility] [address] [place] [address] Ilya Travis M.D. [id number] MEAN CORPUSCULAR HEMOGLOBIN CONC 32.8 g/dL Normal 31.0-37.0 [facility] Comment on above: Performed By: #### Shubham [id number] #### [facility] [address] [place], [place] [address] Ilya Travis M.D. [id number] Monocytes (Bld) [#/Vol] 0.63 10*3/uL Normal 0.30-0.90 [facility] Comment on above: Performed By: #### Shubham [id number] #### [facility] [address] [place] [address] Ilya Travis M.D. [id number] Monocytes/100 WBC (Bld) 10.8 % Normal R [facility] Comment on above: Performed By: #### Shubham [id number] #### [facility] [address] [place], [place] [address] Ilya Travis M.D. [id number] NEUTROPHILS ABSOLUTE COUNT 3.01 K/mcL Normal 1.70-7.00 [facility] Comment on above: Performed By: #### Shubham [id number] #### [facility] [address] [place], [place] [address] Ilya Travis M.D. [id number] Neutrophils/100 WBC (Bld) 51.8 % Normal [facility] Comment on above: Performed By: #### Shubham [id number] #### [facility] [address] [place], [place] [address] Ilya Travis M.D. [id number] Platelet mean volume (Bld) [Entitic vol] 9.7 fL Normal 9.4-12.4 [facility] Comment on above: Performed By: #### L [id number] #### [facility] [address] [place], [place] [address] Ilya Travis M.D. [id number] Platelets (Bld) [#/Vol] 365 10*3/uL Normal 150-400 [facility] Comment on above: Performed By: #### L [id number] #### [facility] [address] [place], [place] [address] Ilya Travis M.D. [id number] RBC (Bld) [#/Vol] 4.09 10*6/uL Normal 4.00-5.20 [facility] Comment on above: Performed By: #### L [id number] #### [facility] [address] [place] [address] Ilya Travis M.D. [id number] WBC (Bld) [#/Vol] 5.81 10*3/uL Normal 4.50-11.00 [facility] Comment on above: Performed By: #### L [id number] #### [facility] [address] [place], [place] [address] Ilya Travis M.D. [id number] COMPREHENSIVE METABOLIC PANE [facility] 11-21-2023 Albumin [Mass/Vol] 4.7 g/dL Normal 3.2-5.2 [facility] Comment on above: Order Comment: [facility] has implemented the eGFR calculation approach that does not have a coefficient for race that conforms to the NKF-ASN Task Force Recommendations. Performed By: #### [id number] #### [facility] [address] [place], [place] [address] Ilya Travis M.D. [id number] ALP [Catalytic activity/Vol] 80 U/L Normal 40-150 [facility] Comment on above: Order Comment: [facility] has implemented the eGFR calculation approach that does not have a coefficient for race that conforms to the NKF-ASN Task Force Recommendations. Performed By: #### [id number] #### [facility] [address] [place], [place] [address] Ilya Travis M.D. [id number] ALT [Catalytic activity/Vol] 19 U/L Normal 0-35 U/L [facility] Comment on above: Order Comment: [facility] has implemented the eGFR calculation approach that does not have a coefficient for race that conforms to the NKF-ASN Task Force Recommendations. Performed By: #### [id number] #### [facility] [address] [place], [place] [address] Ilya Travis M.D. [id number] Anion gap [Moles/Vol] 16 mmol/L Normal 10-20 [facility] Comment on above: Order Comment: [facility] has implemented the eGFR calculation approach that does not have a coefficient for race that conforms to the NKF-ASN Task Force Recommendations. Performed By: #### [id number] #### [facility] [address] [place] [address] Ilya Travis M.D. [id number] AST [Catalytic activity/Vol] 23 U/L Normal 0-35 U/L [facility] Comment on above: Order Comment: [facility] has implemented the eGFR calculation approach that does not have a coefficient for race that conforms to the NKF-ASN Task Force Recommendations. Performed By: #### [id number] #### [facility] [address] [place] [address] Ilya Travis M.D. [id number] Bilirubin [Mass/Vol] 0.3 mg/dL Normal 0.0-1.3 [facility] Comment on above: Order Comment: [facility] has implemented the eGFR calculation approach that does not have a coefficient for race that conforms to the NKF-ASN Task Force Recommendations. Performed By: #### [id number] #### [facility] [address] [place] [address] Ilya Travis M.D. [id number] Calcium [Mass/Vol] 9.6 mg/dL Normal 8.4-10.2 [facility] Comment on above: Order Comment: [facility] has implemented the eGFR calculation approach that does not have a coefficient for race that conforms to the NKF-ASN Task Force Recommendations. Performed By: #### [id number] #### [facility] [address] [place] [address] Ilya Travis M.D. [id number] Chloride [Moles/Vol] 100 mmol/L Normal 98-108 [facility] Comment on above: Order Comment: [facility] has implemented the eGFR calculation approach that does not have a coefficient for race that conforms to the NKF-ASN Task Force Recommendations. Performed By: #### [id number] #### [facility] [address] [place] [address] Ilya Travis M.D. [id number] Creatinine [Mass/Vol] 0.76 mg/dL Normal 0.40-1.10 [facility] Comment on above: Order Comment: [facility] has implemented the eGFR calculation approach that does not have a coefficient for race that conforms to the NKF-ASN Task Force Recommendations. Performed By: #### [id number] #### [facility] [address] [place] [address] Ilya Travis M.D. [id number] EGFR 96 mL/min/1.73 m2 Normal >=60 [facility] Comment on above: Order Comment: [facility] has implemented the eGFR calculation approach that does not have a coefficient for race that conforms to the NKF-ASN Task Force Recommendations. Result Comment: Ivet mated GFR was calculated using the 2020 CKD-EPI creatinine equation. Performed By: #### [id number] #### [facility] [address] [place] [address] Ilya Travis M.D. [id number] Glucose [Mass/Vol] 74 mg/dL Normal 65-99 [facility] Comment on above: Order Comment: [facility] has implemented the eGFR calculation approach that does not have a coefficient for race that conforms to the NKF-ASN Task Force Recommendations. Performed By: #### [id number] #### [facility] [address] [place] [address] Ilya Travis M.D. [id number] HCO3 (Bld) [Moles/Vol] 30 mmol/L Normal 21-32 [facility] Comment on above: Order Comment: [facility] has implemented the eGFR calculation approach that does not have a coefficient for race that conforms to the NKF-ASN Task Force Recommendations. Performed By: #### 4 [id number] #### [facility] [address] [place] [address] Ilya Travis M.D. [id number] Potassium [Moles/Vol] 4.0 mmol/L Normal 3.5-5.1 [facility] Comment on above: Order Comment: [facility] has implemented the eGFR calculation approach that does not have a coefficient for race that conforms to the NKF-ASN Task Force Recommendations. Performed By: #### [id number] #### [facility] [address] [place] [address] Ilya Travis M.D. [id number] Protein [Mass/Vol] 6.9 g/dL Normal 6.0-8.0 [facility] Comment on above: Order Comment: [facility] has implemented the eGFR calculation approach that does not have a coefficient for race that conforms to the NKF-ASN Task Force Recommendations. Performed By: #### [id number] #### [facility] [address] [place] [address] Ilya Travis M.D. [id number] Sodium [Moles/Vol] 142 mmol/L Normal 135-145 [facility] Comment on above: Order Comment: [facility] has implemented the eGFR calculation approach that does not have a coefficient for race that conforms to the NKF-ASN Task Force Recommendations. Performed By: #### 4 [id number] #### [facility] [address] [place] [address] Ilya Travis M.D. [id number] Urea nitrogen [Mass/Vol] 12 mg/dL Normal 8-25 [facility] Comment on above: Order Comment: [facility] has implemented the eGFR calculation approach that does not have a coefficient for race that conforms to the NKF-ASN Task Force Recommendations. Performed By: #### 4 [id number] #### [facility] [address] [place] [address] Ilya Travis M.D. [id number] Urea nitrogen/Creatinine [Mass ratio] 15.8 mg/mg Normal 10.0-20.0 [facility] Comment on above: Order Comment: [facility] has implemented the eGFR calculation approach that does not have a coefficient for race that conforms to the NKF-ASN Task Force Recommendations. Performed By: #### 4 [id number] #### [facility] [address] [place] [address] Ilya Travis M.D. [id number] IRON STUDY WITH FERRITINon 1 Ferritin [Mass/Vol] 74 ng/mL Normal 13-150 [facility] Comment on above: Performed By: #### [id number] #### [facility] [address] [place] [address] Ilya Travis M.D. [id number] Iron [Mass/Vol] 140 ug/dL Normal 30-160 [facility] Comment on above: Performed By: #### 4 [id number] #### [facility] [address] [place] [address] Ilya Travis M.D. [id number] IRON SATURATION 42 % Normal 20-50 [facility] Comment on above: Performed By: #### [id number] #### [facility] [address] [place], [place] [address] Ilya Travis M.D. [id number] TIBC (CALCULATED) 337 mcg/dL Normal 225-430 [facility] Comment on above: Performed By: #### 4 [id number] #### [facility] [address] [place], [place] [address] Ilya Travis M.D. [id number] Comprehensive metabolic 2000 panelon 05-27-2023 Albumin [Mass/Vol] 4.5 g/dL 3.2 - 5.2 g/dL [facility] ALP [Catalytic activity/Vol] 82 U/L 40 - 150 U/L [facility] ALT [Catalytic activity/Vol] 15 U/L 0-35 U/L [facility] Anion gap [Moles/Vol] 15 mmol/L 10 - 2 0 mmol/L [facility] AST [Catalytic activity/Vol] 20 U/L 0-35 U/L [facility] Bilirubin [Mass/Vol] 0.3 mg/dL 0.0 - 1 .3 mg/dL [facility] Calcium [Mass/Vol] 9.3 mg/dL 8.4 - 10. 2 mg/dL [facility] Chloride [Moles/Vol] 102 mmol/L 98 - 10 8 mmol/L [facility] Creatinine [Mass/Vol] 0.50 mg/dL 0.40 - 1.10 mg/dL [facility] GFR/1.73 sq M.predicted CKD-EPI (S/P/Bld) [Vol rate/Area] 115 - PINF [facility] Comment on above: Estimated GFR was ca lculated using the 2020 CKD-EPI creatinine equation. Glucose [Mass/Vol] 97 mg/dL 65 - 99 mg/dL [facility] HCO3 [Moles/Vol] 26 mmol/L 21 - 32 mmol/L [facility] Potassium [Moles/Vol] 4.1 mmol/L 3.5 - 5.1 mmol/L [facility] Protein [Mass/Vol] 6.8 g/dL 6.0 - 8.0 g/dL [facility] Sodium [Moles/Vol] 139 mmol/L 135 - 145 mmol/L [facility] Urea nitrogen [Mass/Vol] 9 mg/dL 8 - 25 mg/dL [facility] Urea nitrogen/Creatinine [Mass ratio] 18.0 mg/mg 10.0 - 20.0 [facility] has implemented the eGFR calculation approach that does not have a coefficient for race that conforms to the NKF-ASN Task Force Recommendations. [facility] Lipid 1996 panelon 4 Cholesterol [Mass/Vol] 187 mg/dL 100 - 199 mg/dL [facility] Cholesterol in HDL [Mass/Vol] 86 mg/dL 40 - 59 mg/dL [facility] Cholesterol in LDL [Mass/Vol] 88 mg/dL 10 - 130 mg/dL [facility] Comment on above: National Cholesterol Education Program Guidelines: LDL Cholesterol Optimal: <100 mg/dL Near Optimal/above Optimal: 100-129 mg/dL Borderline High: 130-159 mg/dL High: 160-189 mg/dL Very High: greater than or equal to 190 mg/dL Cholesterol non HDL [Mass/Vol] 101 mg/dL [facility] Comment on above: National Cholesterol Education Program Guidelines: NON HDL Cholesterol Desirable: <130 mg/dL Borderline High: 130-159 mg/dL High: 160-189 mg/dL Very High: > or = 190 mg/dL Cholesterol.total/Cholest conchita in HDL [Mass ratio] 2.2 {ratio} ratio [facility] Comment on above: Female Cholesterol/H DL Ratio: Average risk: 4.4 1/2 average risk: 3.3 2 x average risk: 7.1 Triglyceride [Mass/Vol] 64 mg/dL 30 - 150 mg/dL [facility] No Panel Informationon 05-26 Interpretation and review of laboratory results Normal [facility] Urinalysis macro (dipstick) panel (U)on 05-27-2023 Bilirubin Ql (U) Negative Negative [facility] th Glucose Ql (U) Negative Normal, Negative mg/dL [facility] Hemoglobin Ql (U) Trace-lysed Abnormal Negative [facility] alth Interpretation and review of laboratory results Abnormal [facility] Ketones Ql (U) Negative Negative mg/dL [facility] Leukocyte esterase Test strip Ql (U) Negative Negative [facility] Nitrite Ql (U) Negative Negative [facility] pH (U) 5.5 [pH] 5.0 - 7.[address] [facility] Protein Ql (U) Negative Negative mg/dL [facility] Specific gravity (U) [Rel density] 1.020 1.005 - 1.[address] [facility] Urobilinogen Qn (U) Negative <2.0, 0. 2, Normal, Negative, 1.0, 2.0, <1.0 mg/dL [facility] Vitamin B12on 05-27-2023 Cobalamin (Vitamin B12) [Mass/Vol] 609 pg/mL 232 - 1245 pg/mL [facility] Vitamin D, Total, 25-OHon 25-hydroxyvitamin D [Mass/Vol] 41 ng/mL 30 - 100 ng/mL [facility] Comment on above: Vitamin D status: Deficiency: <10 ng/mL Insufficiency: 10-30 ng/mL Sufficiency: 30-100 ng/mL Toxicity: >100 ng/mL Interpretation and review of laboratory results Normal [facility] Assay performed usin g [employer] CLIA methodology. [facility] Absolute lymphocyte countOrd ered By: Paola Ramírez on 04-20-2023 Lymphocytes Auto (Unsp spec) [#/Vol] 0.18 10*3/uL 0.83-4.51 [facility] Automated lymphocyte count a s percentage of total leukocytesOrdered By: Paola Ramírez on 04-20-2023 Lymphocytes/100 WBC Auto (Unsp spec) 1.4 % 19-41 [facility] Basophil percentageOrdered B y: Paola Ramírez on 04-20-2023 Basophils/100 WBC (Bld) 0.2 % 0-1 [facility] Eosinophils/100 WBC (Bld) 0.1 % 0-5 [facility] Hemoglobin (Bld) [Mass/Vol] 11.8 g/dL 12.0-15.0 [facility] Monocytes/100 WBC (Bld) 3.2 % 0-10 W [facility] Neutrophils (Bld) [#/Vol] 12.6 10*3/uL 2.0-7.7 [facility] Neutrophils/100 WBC (Bld) 94.8 % 47-70 [facility] WBC (Bld) [#/Vol] 13.2 10*3/uL 4.4-11.0 [facility] Bilirubin [Mass/Vol] 0.70 mg/dL 0.20-1.00 [facility] Comment on above: For patients on eltr ombopag therapy, use of Dimension Sebastian TBIL is not recommended. Chloride [Moles/Vol] 105 mmol/L 98-107 [facility] Glucose [Mass/Vol] 143 mg/dL 74-106 [facility] Comment on above: Fasting Glucose resu lt greater than or equal to 126 mg/dL suggests DIABETES MELLITUS per A.D.A. criteria. Potassium [Moles/Vol] 3.9 mmol/L 3.5-5.1 [facility] Comment on above: Slight Hemolysis, Re sult may be falsely increased. Protein [Mass/Vol] 6.8 g/dL 6.4-8.2 [facility] Sodium [Moles/Vol] 138 mmol/L 136-145 [facility] Blood platelet adequacy dete ction by light microscopyOrdered By: Paola Ramírez on 04-20-2023 Platelets LM Ql (Bld) ADEQUATE ADEQ [facility] Determination of erythrocyte mean corpuscular volume (MCV)Ordered By: Paola Ramírez on 04-20-2023 MCV (RBC) [Entitic vol] 98.6 fL 81-99 W [facility] Direct bilirubinOrdered By: Paola Ramírez on 04-20-2023 Bilirubin.direct [Mass/Vol] 0.19 mg/dL 0.00-0.30 [facility] Erythrocyte distribution wid th ratioOrdered By: Paola Ramírez on 04-20-2023 Erythrocyte distribution width (RBC) [Ratio] 11.9 % 11.6-14.6 [facility] Erythrocyte distribution wid th standard deviationOrdered By: Paola Ramírez on 04-20-2023 Erythrocyte distribution width (RBC) [Entitic vol] 43.2 fL 35.1-43.9 [facility] Hematocrit Auto (Bld) [Volum e fraction]Ordered By: Paola Ramírez on 04-20-2023 Hematocrit (Bld) [Volume fraction] 35.5 % 37-47 [facility] Immature granulocytes/100 WB C Auto (Bld)Ordered By: Paola Ramírez on 04-20-2023 Immature granulocytes/100 WBC (Bld) 0.300 % 0.0-0.9 [facility] Comment on above: IG% - Immature Granu locytes (promyelocytes, myelocytes and metamyelocytes) > 1% indicates that a LEFT SHIFT is Present. Laboratory - Chemistry and C hemistry - challengeOrdered By: Paola Ramírez on 04-20-2023 ALP [Catalytic activity/Vol] 81 U/L 45-117 [facility] ALT [Catalytic activity/Vol] 24 U/L 13-56 [facility] CO2 [Moles/Vol] 24.0 mmol/L 21.0-32.0 [facility] Globulin (S) [Mass/Vol] 3.2 g/dL 2.2-4.2 [facility] Lipase [Catalytic activity/Vol] 23 U/L 13-75 [facility] Comment on above: Please note:LIPASE r evised reference range effective 22. New Lipase methodology. Expected to produce lower values than the previous assay method. NEW Reference Range: 13 - 75 U/L Urea nitrogen/Creatinine [Mass ratio] 15.3 mg/mg 10-20 [facility] Laboratory - Hematology and Cell countsOrdered By: Paola Ramírez on 04-20-2023 MCH (RBC) [Entitic mass] 32.8 pg 27.0-32.0 [facility] MCHC (RBC) [Mass/Vol] 33.2 g/dL 32-36 [facility] Nucleated RBC/100 WBC (Bld) [Ratio] 0 % 0-5 [facility] Platelet mean volume (Bld) [Entitic vol] 9.3 fL 6.2-12.0 [facility] Platelets (Bld) [#/Vol] 364 10*3/uL 150-450 [facility] No Panel InformationOrdered By: Paola Ramírez on 04-20-2023 Estimated Creatinine Clearance Calc 105.61 ml/min [facility] Estimated GFR (MDRD) Amer 124 mL/min >60 [facility] Comment on above: GFR Calc Estimated GFR (MDRD) Non-Af Amer 102 mL/min >60 [facility] Comment on above: Non- GFR Calc RBC Auto (Bld) [#/Vol]Ordere d By: Paola Ramírez on 04-20-2023 RBC (Bld) [#/Vol] 3.60 10*6/uL 4.2-5.4 [facility] RBC morphologyOrdered By: Joe Ramírez on 04-20-2023 RBC morphology finding Nom (Bld) NORM C+C NORMAL NORM C&C [facility] Serum or plasma calcium zaire urement (mass/volume)Ordered By: Paola Ramírez on 04-20-2023 Calcium [Mass/Vol] 9.2 mg/dL 8.5-10.1 [facility] Serum or plasma creatinine m easurement (mass/volume)Ordered By: Paola Ramírez on 04-20-2023 Creatinine [Mass/Vol] 0.65 mg/dL 0.55-1.02 [facility] Comment on above: The validity of the calculated GFR & GFRAA in patients over 70 years has not been determined. Clinical correlation is essential. Serum or plasma urea nitroge n measurement (mass/volume)Ordered By: Paola Ramírez on 04-20-2023 Urea nitrogen [Mass/Vol] 10 mg/dL 7-18 [facility] Stool gastrointestinal hemog lobin detection by immunologic methodOrdered By: Paola Ramírez on 04-20-2023 Lower GI hemoglobin IA Ql (Stl) [facility] Thin prep Papanicolaou smear with manual screeningOrdered By: Paola Ramírez on 04-20-2023 Thin prep Papanicolaou smear with manual screening 3.6 g/dL 3.2-5.0 [facility] Thin prep Papanicolaou smear with manual screening 21 U/L 15-37 [facility] Comment on above: Slight Hemolysis, Re sult may be falsely increased. Thin prep Papanicolaou smear with manual screening 9 5-15 [facility] XR Hand - bilateral PA and L ateral and Obliqueon 01-08-2023 Radiology Study observation (narrative) [facility] IMPRESSION: Minimal bilateral first CMC degenerative changes. Lead Technician: BREEZY Transcribe Date/Time: Jan 08 2023 1:23P Dictated by : GILBERT MUNROE MD This examination was interpreted and the report reviewed and electronically signed by: GILBERT MUNROE MD on Jan 08 2023 1:24PM [facility] DIVISION OF RADIOLOGY * * *Final Report* * * DATE OF EXAM: Jan 08 2023 1:15PM STX 5556 - XR HAND 3V PA/LAT/OBL TONEY / PROCEDURE REASON: multiple diagnoses * * * * Physician Interpretation * * * * HISTORY: Benign joint hypermobility syndrome Pain in joint, multiple sites . joint pain bilateral hands TECHNIQUE: XR HAND 3V PA/LAT/OBL TONEY Laterality: BILATERAL Number of different views (projections): 3 each COMPARISON: None RESULT: Bilateral hands: No acute fracture or dislocation. Tiny first CMC joint osteophytes bilaterally. No marginal erosion. Soft tissues are unremarkable. DIVISION OF RADIOLOGY Provider, Rafa Tomlinson - 01/08/2023 * * *Final Report* * * DATE OF EXAM: Jan 08 2023 1:15PM STX 5556 - XR HAND 3V PA/LAT/OBL TONEY / PROCEDURE REASON: multiple diagnoses * * * * Physician Interpretation * * * * HISTORY: Benign joint hypermobility syndrome Pain in joint, multiple sites . joint pain bilateral hands TECHNIQUE: XR HAND 3V PA/LAT/OBL TONEY Laterality: BILATERAL Number of different views (projections): 3 each COMPARISON: None RESULT: Bilateral hands: No acute fracture or dislocation. Tiny first CMC joint osteophytes bilaterally. No marginal erosion. Soft tissues are unremarkable. IMPRESSION IMPRESSION: Minimal bilateral first CMC degenerative changes. Lead Technician: BREEZY Transcribe Date/Time: Jan 08 2023 1:23P Dictated by : GILBERT MUNROE MD This examination was interpreted and the report reviewed and electronically signed by: GILBERT MUNROE MD on Jan 08 2023 1:24PM EST [facility] XR Hand - bilateral PA and L ateral and ObliqueOrdered By: [facility] Provider on 01-08-2023 [facility] Amylaseon 09-24-2022 Amylase.pancreatic [Catalytic activity/Vol] 26.4 U/L 13.0 - 53.0 U/L [facility] Comprehensive metabolic 2000 panelon 09-24-2022 Albumin [Mass/Vol] 4.6 g/dL 3.2 - 5.2 g/dL [facility] ALP [Catalytic activity/Vol] 87 U/L 40 - 150 U/L [facility] ALT [Catalytic activity/Vol] 11 U/L 0 - 40 U/L [facility] Anion gap [Moles/Vol] 15 mmol/L 10 - 2 0 mmol/L [facility] AST [Catalytic activity/Vol] 15 U/L 0 - 45 U/L [facility] Bilirubin [Mass/Vol] 0.2 mg/dL 0.0 - 1 .3 mg/dL [facility] Calcium [Mass/Vol] 9.6 mg/dL 8.4 - 10. 2 mg/dL [facility] Chloride [Moles/Vol] 102 mmol/L 98 - 10 8 mmol/L [facility] Creatinine [Mass/Vol] 0.58 mg/dL 0.40 - 1.10 mg/dL [facility] GFR/1.73 sq M.predicted CKD-EPI (S/P/Bld) [Vol rate/Area] 112 - PINF [facility] Comment on above: Estimated GFR was ca lculated using the 2020 CKD-EPI creatinine equation. Glucose [Mass/Vol] 103 mg/dL High 65 - 99 mg/dL [facility] HCO3 [Moles/Vol] 27 mmol/L 21 - 32 mmol/L [facility] Interpretation and review of laboratory results Abnormal [facility] Potassium [Moles/Vol] 4.2 mmol/L 3.5 - 5.1 mmol/L [facility] Protein [Mass/Vol] 6.9 g/dL 6.0 - 8.0 g/dL [facility] Sodium [Moles/Vol] 140 mmol/L 135 - 145 mmol/L [facility] Urea nitrogen [Mass/Vol] 11 mg/dL 8 - 25 mg/dL [facility] Urea nitrogen/Creatinine [Mass ratio] 19.0 mg/mg 10.0 - 20.0 [facility] has implemented the eGFR calculation approach that does not have a coefficient for race that conforms to the NKF-ASN Task Force Recommendations. [facility] Lipaseon 09-24-2022 Lipase [Catalytic activity/Vol] 27 U/L 15 - 65 U/L [facility] No Panel Informationon 09-24 Interpretation and review of laboratory results Normal [facility] Cobalamin (Vitamin B12) [Mas s/Vol]on 05-21-2022 Interpretation and review of laboratory results Normal [facility] Comprehensive metabolic 2000 panelon 05-21-2022 Albumin [Mass/Vol] 4.7 g/dL 3.2 - 5.2 g/dL [facility] ALP [Catalytic activity/Vol] 86 U/L 40 - 150 U/L [facility] ALT [Catalytic activity/Vol] 16 U/L 0 - 40 U/L [facility] Anion gap [Moles/Vol] 17 mmol/L 10 - 2 0 mmol/L [facility] AST [Catalytic activity/Vol] 15 U/L 0 - 45 U/L [facility] Bilirubin [Mass/Vol] 0.4 mg/dL 0.0 - 1 .3 mg/dL [facility] Calcium [Mass/Vol] 9.8 mg/dL 8.4 - 10. 2 mg/dL [facility] Chloride [Moles/Vol] 104 mmol/L 98 - 10 8 mmol/L [facility] Creatinine [Mass/Vol] 0.56 mg/dL 0.40 - 1.10 mg/dL [facility] GFR/1.73 sq M.predicted CKD-EPI (S/P/Bld) [Vol rate/Area] 113 - PINF [facility] Comment on above: Estimated GFR was ca lculated using the 2020 CKD-EPI creatinine equation. Glucose [Mass/Vol] 101 mg/dL High 65 - 99 mg/dL [facility] HCO3 [Moles/Vol] 26 mmol/L 21 - 32 mmol/L [facility] Potassium [Moles/Vol] 4.7 mmol/L 3.5 - 5.1 mmol/L [facility] Protein [Mass/Vol] 6.7 g/dL 6.0 - 8.0 g/dL [facility] Sodium [Moles/Vol] 142 mmol/L 135 - 145 mmol/L [facility] Urea nitrogen [Mass/Vol] 10 mg/dL 8 - 25 mg/dL [facility] Urea nitrogen/Creatinine [Mass ratio] 17.9 mg/mg 10.0 - 20.0 [facility] has implemented the eGFR calculation approach that does not have a coefficient for race that conforms to the NKF-ASN Task Force Recommendations. [facility] Lipid 1996 panelon 3 Cholesterol [Mass/Vol] 198 mg/dL 100 - 199 mg/dL [facility] Cholesterol in HDL [Mass/Vol] 78 mg/dL 40 - 59 mg/dL [facility] Cholesterol in LDL [Mass/Vol] 99 mg/dL 10 - 130 mg/dL [facility] Comment on above: National Cholesterol Education Program Guidelines: LDL Cholesterol Optimal: <100 mg/dL Near Optimal/above Optimal: 100-129 mg/dL Borderline High: 130-159 mg/dL High: 160-189 mg/dL Very High: greater than or equal to 190 mg/dL Cholesterol non HDL [Mass/Vol] 120 mg/dL [facility] Comment on above: National Cholesterol Education Program Guidelines: NON HDL Cholesterol Desirable: <130 mg/dL Borderline High: 130-159 mg/dL High: 160-189 mg/dL Very High: > or = 190 mg/dL Cholesterol.total/Cholest conchita in HDL [Mass ratio] 2.5 {ratio} ratio [facility] Comment on above: Female Cholesterol/H DL Ratio: Average risk: 4.4 1/2 average risk: 3.3 2 x average risk: 7.1 Triglyceride [Mass/Vol] 104 mg/dL 30 - 150 mg/dL [facility] Magnesium Levelon 05-21-2022 Magnesium [Mass/Vol] 2.5 mg/dL High 1.6 - 2 .4 mg/dL [facility] No Panel Informationon 05-21 Interpretation and review of laboratory results Abnormal [facility] Urinalysis macro (dipstick) panel (U)on 05-21-2022 Bilirubin Ql (U) Negative Negative [facility] Glucose Ql (U) Negative Normal, Negative mg/dL [facility] Hemoglobin Ql (U) Negative Negative [facility] Interpretation and review of laboratory results Normal [facility] Ketones Ql (U) Negative Negative mg/dL [facility] Leukocyte esterase Test strip Ql (U) Negative Negative [facility] Nitrite Ql (U) Negative Negative [facility] pH (U) 5.5 [pH] 5.0 - 7.[address] [facility] Protein Ql (U) Negative Negative mg/dL [facility] Specific gravity (U) [Rel density] 1.025 1.005 - 1.[address] [facility] Urobilinogen Qn (U) <2.0 <2.0, 0. 2, Normal, Negative, 1.0, 2.0, <1.0 mg/dL [facility] Vitamin B12on 05-21-2022 Cobalamin (Vitamin B12) [Mass/Vol] 762 pg/mL 232 - 1245 pg/mL [facility] Vitamin D, Total, 25-OHon 25-hydroxyvitamin D [Mass/Vol] 59 ng/mL 30 - 100 ng/mL [facility] Comment on above: Vitamin D status: Deficiency: <10 ng/mL Insufficiency: 10-30 ng/mL Sufficiency: 30-100 ng/mL Toxicity: >100 ng/mL Interpretation and review of laboratory results Normal [facility] Assay performed sally Krishnan CLIA methodology. [facility] - Microbiology an d Antimicrobial susceptibilityon 11-16-2021 SARS-CoV-2 (COVID-19) RNA SHE+probe Ql (Unsp spec) Detected [facility] Work Phone: No Panel Informationon 11-16 Influenza Types A,B Rapid (Clinic) Not detected [facility] Work Phone: Laboratory - Microbiology an d Antimicrobial susceptibilityon 07-17-2021 S. pyogenes Ag IA Ql (Unsp spec) Negative [facility] Work Phone: Comprehensive metabolic 2000 panelon 05-15-2021 Albumin [Mass/Vol] 5.0 g/dL 3.2 - 5.2 g/dL [facility] ALP [Catalytic activity/Vol] 75 U/L 40 - 150 U/L [facility] ALT [Catalytic activity/Vol] 11 U/L 0 - 40 U/L [facility] Anion gap [Moles/Vol] 17 mmol/L 10 - 2 0 mmol/L [facility] AST [Catalytic activity/Vol] 13 U/L 0 - 45 U/L [facility] Bilirubin [Mass/Vol] 0.5 mg/dL 0.0 - 1 .3 mg/dL [facility] Calcium [Mass/Vol] 9.7 mg/dL 8.4 - 10. 2 mg/dL [facility] Chloride [Moles/Vol] 103 mmol/L 98 - 10 8 mmol/L [facility] Creatinine [Mass/Vol] 0.55 mg/dL 0.40 - 1.10 [facility] GFR/1.73 sq M.predicted CKD-EPI (S/P/Bld) [Vol rate/Area] 112 >=60 mL/min/1.[address] [facility] Glucose [Mass/Vol] 89 mg/dL 65 - 99 mg/dL [facility] HCO3 [Moles/Vol] 25 mmol/L 21 - 32 mmol/L [facility] Potassium [Moles/Vol] 3.9 mmol/L 3.5 - 5.1 mmol/L [facility] Protein [Mass/Vol] 6.7 g/dL 6.0 - 8.0 g/dL [facility] Sodium [Moles/Vol] 141 mmol/L 135 - 145 mmol/L [facility] Urea nitrogen [Mass/Vol] 11 mg/dL 8 - 25 mg/dL [facility] Urea nitrogen/Creatinine [Mass ratio] 20.0 mg/mg [facility] The eGFR should be used for monitoring renal function only and not for medication dosing. [facility] Lipid 1996 panelon 2 Cholesterol [Mass/Vol] 208 mg/dL High 100 - 199 mg/dL [facility] Cholesterol in HDL [Mass/Vol] 87 mg/dL 40 - [address] [facility] Cholesterol in LDL [Mass/Vol] 98 mg/dL 10 - 130 mg/dL [facility] Comment on above: National Cholesterol Education Program Guidelines: LDL Cholesterol Optimal: <100 mg/dL Near Optimal/above Optimal: 100-129 mg/dL Borderline High: 130-159 mg/dL High: 160-189 mg/dL Very High: greater than or equal to 190 mg/dL Cholesterol non HDL [Mass/Vol] 121 mg/dL [facility] Comment on above: National Cholesterol Education Program Guidelines: NON HDL Cholesterol Desirable: <130 mg/dL Borderline High: 130-159 mg/dL High: 160-189 mg/dL Very High: > or = 190 mg/dL Cholesterol.total/Cholest conchita in HDL [Mass ratio] 2.4 {ratio} ratio [facility] Comment on above: Female Cholesterol/H DL Ratio: Average risk: 4.4 1/2 average risk: 3.3 2 x average risk: 7.1 Interpretation and review of laboratory results Abnormal [facility] Triglyceride [Mass/Vol] 113 mg/dL 30 - 150 mg/dL [facility] Magnesium Levelon 05-15-2021 Magnesium [Mass/Vol] 2.3 mg/dL 1.6 - 2 .4 mg/dL [facility] Magnesium [Mass/Vol]on 05-15 Interpretation and review of laboratory results Normal [facility] No Panel Informationon 05-15 Interpretation and review of laboratory results Normal [facility] TSH DL <= 0.005 mIU/L Qnon 0 05-15-2021 TSH Qn 1.77 m[IU]/L [facility] Urinalysis macro (dipstick) panel (U)Ordered By: Mercedez Whaley on 05-15-2021 Bilirubin Ql (U) Negative Negative [facility] Glucose Ql (U) Negative Normal, Negative mg/dL [facility] Hemoglobin Ql (U) Trace-intact Abnormal Negative [facility] ealt Interpretation and review of laboratory results Abnormal [facility] Ketones Ql (U) Negative Negative mg/dL [facility] Leukocyte esterase Test strip Ql (U) Negative Negative [facility] Nitrite Ql (U) Negative Negative [facility] pH (U) 5.5 [pH] [facility] Protein Ql (U) Negative Negative mg/dL [facility] Specific gravity (U) [Rel density] 1.[address] [facility] Urobilinogen Qn (U) <2.0 <2.0, 0. 2, Normal, Negative, 1.0, 2.0, <1.0 mg/dL [facility] Vitamin B12on 05-15-2021 Cobalamin (Vitamin B12) [Mass/Vol] 688 pg/mL 232 - 1245 pg/mL [facility] Vitamin D, Total, 25-OHon 25-hydroxyvitamin D [Mass/Vol] 31 ng/mL 30 - 100 ng/mL [facility] Comment on above: Vitamin D status: Deficiency: <10 ng/mL Insufficiency: 10-30 ng/mL Sufficiency: 30-100 ng/mL Toxicity: >100 ng/mL Interpretation and review of laboratory results Normal [facility] Assay performed sally reyes Qnaryliang CLIA methodology. [facility] XR HIP LEFT WITH PELVIS 2-3 VIEWS (ROUTINE)on 05-15-2021 XR HIP LEFT WITH PELVIS 2-3 VIEWS (ROUTINE) EXAMINATION: XR HIP LEFT WITH PELVIS 2-3 VIEWS (ROUTINE) 05/15/2021 8:51 am HISTORY: ORDERING SYSTEM PROVIDED HISTORY: pain, TECHNOLOGIST PROVIDED HISTORY: Illness/Other Reason for exam: lt hip pain, frontal left hip area, NKI Cancer History: unk Surgery, RadiationHistory: unk Encounter Type: Initial Additional signs and symptoms: nonw ORDERING SYSTEM PROVIDED DIAGNOSIS CODES: M25.552 Left hip pain COMPARISON: None IMPRESSION: FINDINGS/ Minimal bilateral femoroacetabular osteoarthritis. Normal alignment. Probable phleboliths in the pelvis. Workstation ID: [id number] Dictated by: ALONZO AGGARWAL on FriMay 16, 2021 10:25:26 AM EDT Transcribed by: ALONZO AGGARWAL on FriMay 16, 2021 10:25:26 AM EDT Finalized by: ALONZO AGGARWAL on FriMay 16, 2021 10:25:26 AM EDT Normal [facility] Comment on above: Order Comment: Injur y/Trauma or Illness?:Illness/Other How long have you had these symptoms (acute/chronic)?:Acute Reason for exam?:lt hip pain, frontal left hip area, NKI History of cancer?:unk Surgeries, chemotherapy, or radiation?:unk Type of Exam?:Initial Additional signs and symptoms?:nonw Edis 05-08-2021 CNPN Telephone (SARAI ) TERESA CASH ( ) 1975 F Date Time Provider Department 05/08/21 ALIDA GREGORIO During your visit today, we recorded the following information about you: Alida Martinez LPN 05/08/2021 7:14 AM Signed ----- Message from Alida Gregorio APRN.CASEWORKER sent at 05/07/2021 9:43 PM EDT ----- Please call patient and notify her monitor was without significant arrhythmia. Thank you! Alida Martinez LPN 05/08/2021 8:00 AM Signed Left message for to call [facility] for test results. [facility] phone number provided. LAMINE Colin RN 05/08/2021 9:17 AM Signed ----- Message from Alida Gregorio APRN.CASEWORKER sent at 05/07/2021 9:38 PM EDT ----- Please call patient and notify her echocardiogram is with grossly normal structure and function. Thank you! Caro Tristan RN 05/08/2021 9:18 AM Signed Pt. notified of results. Voices understanding. No questions/ concerns at this time, Caro Tristan RN Allergies As of Date: 05/08/2021 Noted Allergy Reaction CLARITHROMYCIN 07/17/2009 14 - Other: See Comments 2 - Rash ERYTHROMYCIN 07/17/2009 6 - Diarrhea 8 - GI Upset 4 - Hives 14 - Other: See Comments 11 - Vomiting Date Reviewed: 04/09/2021 Reviewed by: Alida Gregorio APRN.CASEWORKER - Fully Assessed Reason for Visit: Results [95] Prescriptions as of 05/08/2021 - olmesartan (BENICAR) 40 mg tablet Take 40 mg by mouth once daily. - tiZANidine (ZANAFLEX) 4 mg tablet Take 12 mg by mouth. - cholecalciferol, vitamin D3, (VITAMIN D3 ORAL) Take by mouth once daily. - fexofenadine HCl (SUSANA ORAL) Take by mouth as needed. - cetirizine HCl (ZYRTEC ORAL) Take by mouth once daily. Facility-Administered Medications as of 05/08/2021 - perflutren lipid microspheres 1.3 mL in NaCl (PF) 0.9% 10 mL injection (DEFINITY) - sodium chloride 0.9 % (flush) 10 mL (BD POSIFLUSH) Problem List As Of Date 05/08/2021 Noted Resolved Palpitations [R00.2] 04/09/2021 Sleep terrors [F51.4] 04/09/2021 Primary hypertension [I10] 04/09/2021 Encounter Status:Closed by CARO TRISTAN on 05/08/21 Normal [facility] ECHOon 05-07-2021 [facility] Ferritinon 11-14-2020 Ferritin [Mass/Vol] 91 ng/mL 13 - 150 ng/mL [facility] Iron and Iron binding capaci ty panelon 11-14-2020 Interpretation and review of laboratory results Abnormal [facility] Iron [Mass/Vol] 164 [facility] [Mass/Vol] [address] [facility] Iron saturation [Mass fraction] 45 % 20 - 50 % [facility] No Panel Informationon 11-14 Interpretation and review of laboratory results Normal [facility] TSH DL <= 0.005 mIU/L Qnon 1 TSH Qn 1.69 m[IU]/L [facility] Comprehensive Metabolic Pane yeni 04-14-2020 Albumin [Mass/Vol] 4.5 g/dL 3.2 - 5.2 g/dL [facility] ALP [Catalytic activity/Vol] 83 U/L 40 - 150 U/L [facility] ALT [Catalytic activity/Vol] 10 U/L 0 - 40 U/L [facility] Anion gap [Moles/Vol] 12 mmol/L 10 - 2 0 mmol/L [facility] AST [Catalytic activity/Vol] 14 U/L 0 - 45 U/L [facility] Bilirubin [Mass/Vol] 0.2 mg/dL 0.0 - 1 .3 mg/dL [facility] Calcium [Mass/Vol] 9.2 mg/dL 8.4 - 10. 2 mg/dL [facility] Chloride [Moles/Vol] 103 mmol/L 98 - 10 8 mmol/L [facility] Creatinine [Mass/Vol] 0.43 mg/dL 0.40 - 1.10 [facility] GFR/1.73 sq M predicted among non-blacks MDRD (S/P/Bld) [Vol rate/Area] The eGFR should be used for monitoring renal function only and not for medication dosing. [facility] GFR/1.73 sq M.predicted CKD-EPI (S/P/Bld) [Vol rate/Area] 122 >=60 mL/min/1.[address] [facility] Glucose [Mass/Vol] 94 mg/dL 65 - 99 mg/dL [facility] HCO3 [Moles/Vol] 28 mmol/L 21 - 32 mmol/L [facility] Interpretation and review of laboratory results Abnormal [facility] Potassium [Moles/Vol] 4.2 mmol/L 3.5 - 5.1 mmol/L [facility] Protein [Mass/Vol] 6.6 g/dL 6.0 - 8.0 g/dL [facility] Sodium [Moles/Vol] 139 mmol/L 135 - 145 mmol/L [facility] Urea nitrogen [Mass/Vol] 13 mg/dL 8 - 25 mg/dL [facility] Urea nitrogen/Creatinine [Mass ratio] 30.2 mg/mg High [facility] Lipid Panelon 04-14-2020 Cholesterol [Mass/Vol] 178 mg/dL 100 - 199 mg/dL [facility] Cholesterol in HDL [Mass/Vol] 81 mg/dL 40 - [address] [facility] Cholesterol in LDL [Mass/Vol] 85 mg/dL 10 - 130 mg/dL [facility] Comment on above: National Cholesterol Education Program Guidelines: LDL Cholesterol Optimal: <100 mg/dL Near Optimal/above Optimal: 100-129 mg/dL Borderline High: 130-159 mg/dL High: 160-189 mg/dL Very High: greater than or equal to 190 mg/dL Cholesterol non HDL [Mass/Vol] 97 mg/dL [facility] Comment on above: National Cholesterol Education Program Guidelines: NON HDL Cholesterol Desirable: <130 mg/dL Borderline High: 130-159 mg/dL High: 160-189 mg/dL Very High: > or = 190 mg/dL Cholesterol.total/Cholest conchita in HDL [Mass ratio] 2.2 {ratio} ratio [facility] Comment on above: Female Cholesterol/H DL Ratio: Average risk: 4.4 1/2 average risk: 3.3 2 x average risk: 7.1 Triglyceride [Mass/Vol] 60 mg/dL 30 - 150 mg/dL [facility] POC Urinalysis Dipstickon Bilirubin Ql (U) Negative Negative [facility] Glucose Ql (U) Negative Normal, Negative mg/dL [facility] Hemoglobin Ql (U) Negative Negative [facility] Ketones Ql (U) Negative Negative mg/dL [facility] Leukocyte esterase Test strip Ql (U) Negative Negative [facility] Nitrite Ql (U) Negative Negative [facility] pH (U) 7.0 [pH] [facility] Protein Ql (U) Negative Negative mg/dL [facility] Specific gravity (U) [Rel density] 1.[address] [facility] Urobilinogen Qn (U) 0.2 mg/dL <2.0, 0. 2, Normal, Negative, 1.0, 2.0, <1.[address] [facility] VITAMIN D, TOTAL, 25-OHon 25-Hydroxyvitamin D2+25-Hydroxyvitamin D3 [Mass/Vol] 53 ng/mL 30 - 100 ng/mL [facility] Comment on above: Vitamin D status: Deficiency: <10 ng/mL Insufficiency: 10-30 ng/mL Sufficiency: 30-100 ng/mL Toxicity: >100 ng/mL Interpretation and review of laboratory results Normal [facility] Assay performed usin [employer] CLIA methodology. [facility] Vitamin B12on 04-14-2020 Cobalamin (Vitamin B12) [Mass/Vol] 660 pg/mL 232 - 1245 pg/mL [facility] Interpretation and review of laboratory results Normal [facility] Comprehensive Metabolic Pane yeni 10-15-2019 Albumin [Mass/Vol] 4.7 g/dL 3.2 - 5.2 g/dL [facility] ALP [Catalytic activity/Vol] 74 U/L 40 - 150 U/L [facility] ALT [Catalytic activity/Vol] 9 U/L 0 - 40 U/L [facility] Anion gap [Moles/Vol] 13 mmol/L 10 - 2 0 mmol/L [facility] AST [Catalytic activity/Vol] 13 U/L 0 - 45 U/L [facility] Bilirubin [Mass/Vol] 0.2 mg/dL 0 - 1.3 mg/dL [facility] Calcium [Mass/Vol] 9.4 mg/dL 8.4 - 10. 2 mg/dL [facility] Chloride [Moles/Vol] 103 mmol/L 98 - 10 8 mmol/L [facility] Creatinine [Mass/Vol] 0.51 mg/dL 0.40 - 1.10 [facility] GFR/1.73 sq M predicted among non-blacks MDRD (S/P/Bld) [Vol rate/Area] The eGFR should be used for monitoring renal function only and not for medication dosing. [facility] GFR/1.73 sq M.predicted CKD-EPI (S/P/Bld) [Vol rate/Area] 116 >=60 mL/min/1.[address] [facility] Glucose [Mass/Vol] 93 mg/dL 65 - 99 mg/dL [facility] HCO3 [Moles/Vol] 27 mmol/L 21 - 32 mmol/L [facility] Interpretation and review of laboratory results Abnormal [facility] Potassium [Moles/Vol] 4.3 mmol/L 3.5 - 5.1 mmol/L [facility] Protein [Mass/Vol] 6.5 g/dL 6 - 8 g/dL [facility] Sodium [Moles/Vol] 139 mmol/L 135 - 145 mmol/L [facility] Urea nitrogen [Mass/Vol] 11 mg/dL 8 - 25 mg/dL [facility] Urea nitrogen/Creatinine [Mass ratio] 21.6 mg/mg High [facility] VITAMIN D, TOTAL, 25-OHon 25-Hydroxyvitamin D2+25-Hydroxyvitamin D3 [Mass/Vol] 34 ng/mL 30 - 100 ng/mL [facility] Comment on above: Vitamin D status: Deficiency: <10 ng/mL Insufficiency: 10-30 ng/mL Sufficiency: 30-100 ng/mL Toxicity: >100 ng/mL Interpretation and review of laboratory results Normal [facility] Assay performed nVoq CLIA methodology. [facility] Vitamin B12on 10-15-2019 Cobalamin (Vitamin B12) [Mass/Vol] 387 pg/mL 232 - 1245 pg/mL [facility] Interpretation and review of laboratory results Normal [facility] ZINCon 07-15-2019 Zinc 0.69 0.66 - 1.10 mcg/mL [facility] Comment on above: ADDITIONAL INFORMATION This test was developed and its performance characteristics determined by [facility] in a manner consistent with CLIA requirements. This test has not been cleared or approved by the U.S. Food and Drug Administration. Test Performed by: [facility] [address] [place] [address] Solution Coordinator: Don Lynn M.D. Ph.D.; CLIA# [id number] Hemoglobin A1con 07-13-2019 Average glucose Estimated from glycated hemoglobin mass conc (Bld) 100 mg/dL 74 - 114 mg/dL [facility] HbA1c (Bld) [Mass fraction] 5.1 % 4.2 - 5.6 % [facility] Interpretation and review of laboratory results Normal [facility] Normal: 4.2% - 5.6% Increased risk for diabetes: 5.7% - 6.4% Diabetes: >= 6.5% Pediatrics: No established reference range Estimated average glucose: 74-114 mg/dL [facility] LYME DISEASE ANTIBODY, BLOOD on 07-13-2019 B. burgdorferi Ab Ql (S) Negative Negative [facility] Interpretation and review of laboratory results Normal [facility] Assay performed [employer] CLIA methodology. [facility] Otheron 07-13-2019 Interpretation and review of laboratory results Normal [facility] T4, Freeon 07-13-2019 Free T4 [Mass/Vol] 1.2 ng/dL 0.7 - 1.7 ng/dL [facility] TSHon 07-13-2019 TSH Qn 1.60 m[IU]/L [facility] Vitamin B12on 07-13-2019 Cobalamin (Vitamin B12) [Mass/Vol] 461 pg/mL 232 - 1245 pg/mL [facility] XR CHEST AP/PA AND LATon No acute cardiopulmonary process. [employer] Workstation ID: [id number] [facility] EXAMINATION: XR CHES T AP/PA AND LAT HISTORY: ORDERING SYSTEM PROVIDED HISTORY: cough for >1 month, weight loss, TECHNOLOGIST PROVIDED HISTORY: Illness/Other Reason for exam: Dry cough X 4 months, hx of asthma Cancer History: unk Surgery, RadiationHistory: unk Encounter Type: Initial Additional signs and symptoms: . ORDERING SYSTEM PROVIDED DIAGNOSIS CODES: R05 Cough R63.4 Weight loss COMPARISON: 02/08/2016. FINDINGS: Two-view chest x-ray. No pneumothorax, pleural effusion or focal airspace consolidation. Heart is normal in size. Bony thorax is unremarkable. [facility] Interface, Rad In [employer] - 06/24/2019 5:41 PM EDT EXAMINATION: XR CHEST AP/PA AND LAT HISTORY: ORDERING SYSTEM PROVIDED HISTORY: cough for >1 month, weight loss, TECHNOLOGIST PROVIDED HISTORY: Illness/Other Reason for exam: Dry cough X 4 months, hx of asthma Cancer History: unk Surgery, RadiationHistory: unk Encounter Type: Initial Additional signs and symptoms: . ORDERING SYSTEM PROVIDED DIAGNOSIS CODES: R05 Cough R63.4 Weight loss COMPARISON: 02/08/2016. FINDINGS: Two-view chest x-ray. No pneumothorax, pleural effusion or focal airspace consolidation. Heart is normal in size. Bony thorax is unremarkable. IMPRESSION: No acute cardiopulmonary process. [employer] Workstation ID: [id number] [facility] Comprehensive Metabolic Pane yeni 02-26-2019 Albumin [Mass/Vol] 4.7 g/dL 3.2 - 5.2 g/dL [facility] ALP [Catalytic activity/Vol] 84 U/L 40 - 150 U/L [facility] ALT [Catalytic activity/Vol] 13 U/L 0 - 40 U/L [facility] Anion gap [Moles/Vol] 12 mmol/L 10 - 2 0 mmol/L [facility] AST [Catalytic activity/Vol] 15 U/L 0 - 45 U/L [facility] Bilirubin [Mass/Vol] 0.5 mg/dL 0 - 1.3 mg/dL [facility] Calcium [Mass/Vol] 9.5 mg/dL 8.4 - 10. 2 mg/dL [facility] Chloride [Moles/Vol] 103 mmol/L 98 - 10 8 mmol/L [facility] Creatinine [Mass/Vol] 0.52 mg/dL 0.4 - 1.1 mg/dL [facility] GFR/1.73 sq M predicted among non-blacks MDRD (S/P/Bld) [Vol rate/Area] The eGFR should be used for monitoring renal function only and not for medication dosing. [facility] GFR/1.73 sq M.predicted CKD-EPI (S/P/Bld) [Vol rate/Area] 116 >=60 mL/min/1.[address] [facility] Glucose [Mass/Vol] 94 mg/dL 65 - 99 mg/dL [facility] HCO3 [Moles/Vol] 27 mmol/L 21 - 32 mmol/L [facility] Interpretation and review of laboratory results Normal [facility] Potassium [Moles/Vol] 4.2 mmol/L 3.5 - 5.1 mmol/L [facility] Protein [Mass/Vol] 6.7 g/dL 6 - 8 g/dL [facility]th Sodium [Moles/Vol] 138 mmol/L 135 - 145 mmol/L [facility] Urea nitrogen [Mass/Vol] 9 mg/dL 8 - 25 mg/dL [facility] Urea nitrogen/Creatinine [Mass ratio] 17.3 mg/mg [facility] Ferritinon 02-26-2019 Ferritin [Mass/Vol] 70 ng/mL 13 - 150 ng/mL [facility] Iron and TIBCon 02-26-2019 Interpretation and review of laboratory results Abnormal [facility] Iron [Mass/Vol] 202 ug/dL High [facility] h Iron binding capacity [Mass/Vol] [address] [facility] Iron saturation [Mass fraction] 58 % High 20 - 50 % [facility] Lipid Panelon 02-26-2019 Cholesterol [Mass/Vol] 178 mg/dL 100 - 199 mg/dL [facility] Cholesterol in HDL [Mass/Vol] 87 mg/dL 40 - [address] [facility] Cholesterol in LDL [Mass/Vol] 77 mg/dL 10 - 130 mg/dL [facility] Comment on above: National Cholesterol Education Program Guidelines: LDL Cholesterol Optimal: <100 mg/dL Near Optimal/above Optimal: 100-129 mg/dL Borderline High: 130-159 mg/dL High: 160-189 mg/dL Very High: greater than or equal to 190 mg/dL Cholesterol non HDL [Mass/Vol] 91 mg/dL [facility] Comment on above: National Cholesterol Education Program Guidelines: NON HDL Cholesterol Desirable: <130 mg/dL Borderline High: 130-159 mg/dL High: 160-189 mg/dL Very High: > or = 190 mg/dL Cholesterol.total/Cholest conchita in HDL [Mass ratio] 2.0 {ratio} ratio [facility] Comment on above: Female Cholesterol/H DL Ratio: Average risk: 4.4 1/2 average risk: 3.3 2 x average risk: 7.1 Triglyceride [Mass/Vol] 68 mg/dL 30 - 150 mg/dL [facility] Otheron 02-26-2019 Interpretation and review of laboratory results Normal [facility] POC Urinalysis Dipstickon Bilirubin Ql (U) Negative Negative [facility] Glucose Ql (U) Negative Normal, Negative mg/dL [facility] Hemoglobin Ql (U) Trace-lysed Abnormal Negative [facility] Interpretation and review of laboratory results Abnormal [facility] Ketones Ql (U) Negative Negative mg/dL [facility] Leukocyte esterase Test strip Ql (U) Negative Negative [facility] Nitrite Ql (U) Negative Negative [facility] pH (U) 5.5 [pH] [facility] Protein Ql (U) Negative Negative mg/dL [facility] Specific gravity (U) [Rel density] 1.[address] [facility] Urobilinogen Qn (U) 0.2 mg/dL <2.0, 0. 2, Normal, Negative, 1.0, 2.0, <1.[address] [facility] T4, Freeon 02-26-2019 Free T4 [Mass/Vol] 1.0 ng/dL 0.7 - 1.7 ng/dL [facility] TSHon 02-26-2019 TSH Qn 1.36 m[IU]/L [facility] VITAMIN D, TOTAL, 25-OHon 25-Hydroxyvitamin D2+25-Hydroxyvitamin D3 [Mass/Vol] 23 ng/mL Low 30 - 100 ng/mL [facility] Comment on above: Vitamin D status: Deficiency: <10 ng/mL Insufficiency: 10-30 ng/mL Sufficiency: 30-100 ng/mL Toxicity: >100 ng/mL Interpretation and review of laboratory results Abnormal [facility] Assay performed usin [employer] CLIA methodology. [facility] Vitamin B12on 02-26-2019 Cobalamin (Vitamin B12) [Mass/Vol] 551 pg/mL 232 - 1245 pg/mL [facility] Basic Metabolic Panelon 11-10 Anion gap [Moles/Vol] 17 mmol/L 10 - 2 0 mmol/L [facility] Calcium [Mass/Vol] 9.8 mg/dL 8.4 - 10. 2 mg/dL [facility] Chloride [Moles/Vol] 103 mmol/L 98 - 10 8 mmol/L [facility] Creatinine [Mass/Vol] 0.53 mg/dL 0.4 - 1.1 mg/dL [facility] GFR/1.73 sq M predicted among non-blacks MDRD (S/P/Bld) [Vol rate/Area] The eGFR should be used for monitoring renal function only and not for medication dosing. [facility] GFR/1.73 sq M.predicted CKD-EPI (S/P/Bld) [Vol rate/Area] 115 >=60 mL/min/1.[address] [facility] Glucose [Mass/Vol] 93 mg/dL 65 - 99 mg/dL [facility] HCO3 [Moles/Vol] 24 mmol/L 21 - 32 mmol/L [facility] Potassium [Moles/Vol] 4.5 mmol/L 3.5 - 5.1 mmol/L [facility] Sodium [Moles/Vol] 139 mmol/L 135 - 145 mmol/L [facility] Urea nitrogen [Mass/Vol] 10 mg/dL 8 - 25 mg/dL [facility] Urea nitrogen/Creatinine [Mass ratio] 18.9 mg/mg [facility] Otheron 11-26-2018 Interpretation and review of laboratory results Normal [facility] Vitamin B12on 11-26-2018 Cobalamin (Vitamin B12) [Mass/Vol] 417 pg/mL 232 - 1245 pg/mL [facility] BMPon 07-30-2018 Anion gap [Moles/Vol] 15 mmol/L 10 - 2 0 mmol/L [facility] Calcium [Mass/Vol] 8.9 mg/dL 8.4 - 10. 2 mg/dL [facility] Chloride [Moles/Vol] 105 mmol/L 98 - 10 8 mmol/L [facility] Creatinine [Mass/Vol] 0.64 mg/dL 0.4 - 1.1 mg/dL [facility] GFR/1.73 sq M predicted among non-blacks MDRD (S/P/Bld) [Vol rate/Area] The eGFR should be used for monitoring renal function only and not for medication dosing. [facility] GFR/1.73 sq M.predicted CKD-EPI (S/P/Bld) [Vol rate/Area] 109 >=60 mL/min/1.[address] [facility] Glucose [Mass/Vol] 124 mg/dL High 65 - 99 mg/dL [facility] HCO3 [Moles/Vol] 25 mmol/L 21 - 32 mmol/L [facility] Potassium [Moles/Vol] 4.3 mmol/L 3.5 - 5.1 mmol/L [facility] Sodium [Moles/Vol] 141 mmol/L 135 - 145 mmol/L [facility] Urea nitrogen [Mass/Vol] 12 mg/dL 8 - 25 mg/dL [facility] Urea nitrogen/Creatinine [Mass ratio] 18.8 mg/mg [facility] CBC WITH AUTO DIFFERENTIALon 07-30-2018 Basophils (Bld) [#/Vol] 0.03 10*3/uL [facility] Basophils/100 WBC (Bld) 0.5 % [facility] Eosinophils (Bld) [#/Vol] 0.29 10*3/uL [facility] Eosinophils/100 WBC (Bld) 4.5 % [facility] Erythrocyte distribution width (RBC) [Entitic vol] 11.9 % 11.6 - 14.8 % [facility] Hematocrit (Bld) [Volume fraction] 40.3 % 36 - 46 % [facility] Hemoglobin (Bld) [Mass/Vol] 13.9 g/dL 12 - 16 g/dL [facility] Immature granulocytes (Bld) [#/Vol] 0.02 10*3/uL [facility] Immature granulocytes/100 WBC (Bld) 0.30 % [facility] Comment on above: The IG parameter is the percentage of metamyelocytes, myelocytes, and promyelocytes. Lymphocytes (Bld) [#/Vol] 2.22 10*3/uL [facility] Lymphocytes/100 WBC (Bld) 34.5 % [facility] MCH (RBC) [Entitic mass] 32.9 pg 26 - [address] [facility] MCHC (RBC) [Mass/Vol] 34.5 g/dL 31 - 3 7 g/dL [facility] MCV (RBC) [Entitic vol] 95.5 fL 80 - [address] [facility] Monocytes (Bld) [#/Vol] 0.60 10*3/uL [facility] Monocytes/100 WBC (Bld) 9.3 % [facility] Neutrophils (Bld) [#/Vol] 3.27 10*3/uL [facility] Neutrophils/100 WBC (Bld) 50.9 % [facility] Nucleated RBC (Bld) [#/Vol] 0.00 10*3/uL [facility] Nucleated RBC/100 WBC (Bld) [Ratio] 0.0 % [facility] Platelet mean volume (Bld) [Entitic vol] 9.2 fL 9 - 15.[address] [facility] Platelets (Bld) [#/Vol] 353 10*3/uL [facility] RBC (Bld) [#/Vol] 4.22 10*6/uL [facility] WBC (Bld) [#/Vol] 6.43 10*3/uL [facility] Otheron 07-30-2018 Extra Tube Hold for add-ons. [facility] Comment on above: Auto resulted. Interpretation and review of laboratory results Abnormal [facility] POC Urine Pregnancyon 2018 HCG ( test) Ql (U) Negative Negative [facility] Internal Control Pass [facility] Interpretation and review of laboratory results Normal [facility] Specific gravity (U) [Rel density] [facility] URINALYSISon 07-30-2018 Bacteria Auto Ql (U) Rare Abnormal None Se en /hpf [facility] Bilirubin Ql (U) Negative Negative [facility] Refractometry automated (U) Clear Clear [facility] Color (U) Yellow Colorless, Yellow [facility] Epithelial cells.squamous Auto (Urine sed) [#/Area] 3 [facility] Glucose Auto test strip (U) [Mass/Vol] Negative Negative mg/dL [facility] Hemoglobin Auto test strip Ql (U) Moderate Abnormal Negative [facility] Ketones (U) [Mass/Vol] Negative Negat hemalatha mg/dL [facility] Leukocyte esterase Auto test strip Ql (U) Negative Negative [facility] Mucus Auto (Urine sed) [#/Area] Rare None Seen, Rare /lpf [facility] Nitrite Auto test strip Ql (U) Negative Negative [facility] pH (U) 5.0 [pH] [facility] Protein (U) [Mass/Vol] Negative Negat hemalatha mg/dL [facility] RBC Auto (Urine sed) [#/Area] [address] [facility] Specific gravity (U) [Rel density] 1.[address] [facility] Urobilinogen (U) [Mass/Vol] <2.0 <2.0 mg/dL [facility] WBC Auto (Urine sed) [#/Area] <[address] [facility] Microscopic examination is performed on all urinalysis samples and only positive findings are reported. The test for blood on the chemical analytic portion of urinalysis may also be positive due to hemoglobinuria and myoglobinuria and if red blood cells are present they are quantified by microscopic examination. [facility] Pelvic Transabdominal And Transvaginal With Color Flowon 07-30-2018 Unremarkable pelvic ultrasound. Normal Doppler flow within the ovaries. Workstation ID: [id number] [facility] Interface, Rad In [facility] - 07/30/2018 8:44 AM EDT EXAMINATION: PELVIC ULTRASOUND 07/30/2018 TECHNIQUE: Transabdominal and transvaginal pelvic ultrasound was performed with color Doppler flow evaluation. COMPARISON: None HISTORY: ORDERING SYSTEM PROVIDED HISTORY: left pelvic pain; TECHNOLOGIST PROVIDED HISTORY: Illness/Other Acuity: Acute Reason for Exam: left pelvic pain Cancer History: unk Surgery, Radiation History: unk Type of Encounter: Initial Additional signs and symptoms: FINDINGS: Measurements: Uterus: 8.6 cm x 4.3 cm x 4 cm Endometrial stripe: 4.3 mm Right Ovary: 2.2 cm x 1.7 cm x 1.1 cm Left Ovary: 2.3 cm x 2 cm x 1.4 cm Ultrasound Findings: Uterus: Uterus demonstrates normal myometrial echotexture. Endometrial stripe: Endometrial stripe is within normal limits. Right Ovary: Right ovary is within normal limits. There is normal arterial and venous Doppler flow. Left Ovary: There is a 1.6 cm cyst which appears simple within the left ovary. There is normal arterial and venous Doppler flow. Free Fluid: No evidence of free fluid. IMPRESSION: Unremarkable pelvic ultrasound. Normal Doppler flow within the ovaries. Workstation ID: [id number] [facility] EXAMINATION: PELVIC ULTRASOUND 07/30/2018 TECHNIQUE: Transabdominal and transvaginal pelvic ultrasound was performed with color Doppler flow evaluation. COMPARISON: None HISTORY: ORDERING SYSTEM PROVIDED HISTORY: left pelvic pain; TECHNOLOGIST PROVIDED HISTORY: Illness/Other Acuity: Acute Reason for Exam: left pelvic pain Cancer History: unk Surgery, Radiation History: unk Type of Encounter: Initial Additional signs and symptoms: FINDINGS: Measurements: Uterus: 8.6 cm x 4.3 cm x 4 cm Endometrial stripe: 4.3 mm Right Ovary: 2.2 cm x 1.7 cm x 1.1 cm Left Ovary: 2.3 cm x 2 cm x 1.4 cm Ultrasound Findings: Uterus: Uterus demonstrates normal myometrial echotexture. Endometrial stripe: Endometrial stripe is within normal limits. Right Ovary: Right ovary is within normal limits. There is normal arterial and venous Doppler flow. Left Ovary: There is a 1.6 cm cyst which appears simple within the left ovary. There is normal arterial and venous Doppler flow. Free Fluid: No evidence of free fluid. [facility] APTTon 03-16-2018 aPTT Coag time (Bld) 31 s [facility] aPTT Coag time (Bld) Therapeutic range f or APTT's is 68 - [address] [facility] Basic Metabolic Panelon Anion gap molar conc 17 mmol/L 10 - 20 mmol/L [facility] Calcium mass conc 9.6 mg/dL 8.4 - 10.2 mg/dL [facility] Chloride molar conc 103 mmol/L 98 - 108 mmol/L [facility] Creatinine mass conc 0.52 mg/dL 0.4 - 1 .1 mg/dL [facility] GFR/1.73 sq M predicted among non-blacks MDRD vol rate/area (S/P/Bld) The eGFR should be used for monitoring renal function only and not for medication dosing. [facility] GFR/1.73 sq M.predicted CKD-EPI vol rate/area (S/P/Bld) 117 >=60 mL/min/1.[address] [facility] Glucose mass conc 92 mg/dL 65 - 99 mg/dL [facility] HCO3 molar conc 25 mmol/L 21 - 32 mmol/L [facility] Interpretation and review of laboratory results Normal [facility] Potassium molar conc 3.9 mmol/L 3.5 - 5 .1 mmol/L [facility] Sodium molar conc 141 mmol/L 135 - 145 mmol/L [facility] Urea nitrogen mass conc 10 mg/dL 8 - 25 mg/dL [facility] Urea nitrogen/Creatinine mass ratio 19.2 mg/mg [facility] ECG 12-LEADon 03-16-[address] [facility] P [place] [facility] P-R Interval [facility] Q-T Interval [facility] Q-T Interval (corrected) [facility] QRS Duration [facility] QTC Calculation (Bezet) [facility] R [place] [facility] T [place] [facility] Ventricular Rate [facility] th Otheron 03-16-2018 Interpretation and review of laboratory results Normal [facility] POC Urinalysis Dipstickon Bilirubin Ql (U) Negative Negative [facility] Glucose Ql (U) Negative Normal, Negative mg/dL [facility] Hemoglobin Ql (U) Negative Negative [facility] Interpretation and review of laboratory results Normal [facility] Ketones Ql (U) Negative Negative mg/dL [facility] Leukocyte esterase Test strip Ql (U) Negative Negative [facility] Nitrite Ql (U) Negative Negative [facility] pH (U) 5.5 [pH] [facility] Protein Ql (U) Negative Negative mg/dL [facility] Specific gravity Relative Density (U) 1.[address] [facility] Urobilinogen Qn (U) 0.2 mg/dL <2.0, 0. 2, Normal, Negative, 1.0, 2.0, <1.[address] [facility] PT/INRon 03-16-2018 INR Coag RelTime (PPP) 1.0 {INR} [facility] Prothrombin time (PT) Coag time (PPP) 13.[address] [facility] During the induction phase of oral anticoagulation, the INR may not reflect the anticoagulation status of the patient. Therapeutic ranges for INR's are: Most clinical situations: INR 2.0-3.0 Mechanical Prosthetic Valve: INR 2.5-3.5 Critical: INR >5.0 [facility] XR FOREARM RIGHT 2 VIEWSon 0 11-06-2017 XR FOREARM RIGHT 2 VIEWS EXAMINATION:XR FOREARM RIGHT 2 VIEWS 10/27/2017HISTORY:ORD ERING SYSTEM PROVIDED HISTORY: injury, TECHNOLOGIST PROVIDED HISTORY: Reason for exam: Forearm injury, rightInjury/TraumaCan cer History: unkSurgery, RadiationHistory: unkEncounter Type: InitialMechanism of injury: Forearm injury, impact , rightORDERING SYSTEM PROVIDED DIAGNOSIS CODES:S59.911A Forearm injury, right, initial encounterFINDINGS:Fro ntal and lateral views of the right forearm were obtained. There is a subcentimeter radiopaque foreign body versus dystrophic calcification within the distal forearm. On the frontal image, this is identified laterally measuring 3 mm in length. This is noted approximately 4 mm deep to the skin surface. A radiopaque ring is identified at the base of the 3rd digit. Osseous alignment is intact and satisfactory. Joint spaces are well maintained. There is no fracture or dislocation.IMPRESSIO N:1. Triangular-shaped radiopaque foreign body versus dystrophic calcification involving the distal forearm noted laterally.2. No acute fracture or dislocation.[employer] SystemsWo rkstation ID: [id number] by: RODRÍGUEZ SOLANO on FriNov 06, 2017 10:34:03 AM EDTTranscribed by: CHAVO NEVES on FriNov 06, 2017 10:47:54 AM EDTFinalized by: RODRÍGUEZ SOLANO on FriNov 06, 2017 8:43:51 PM EDT [facility] Comment on above: Order Comment: Reaso n for exam?:Forearm injury, rightInjury/Trauma or Illness?:Injury/TraumaHow long have you had these symptoms (acute/chronic)?:AcuteHistory of cancer?:unkSurgeries, chemotherapy, or radiation?:unkType of Exam?:InitialMechanism of injury?:Forearm injury, impact , right XR Forearm Right 2 Viewson 0 11-06-2017 1. Triangular-shaped radiopaque foreign body versus dystrophic calcification involving the distal forearm noted laterally. 2. No acute fracture or dislocation. [employer] Workstation ID: [id number] Invalid Interpretation Code [facility] EXAMINATION: XR FOREARM RIGHT 2 VIEWS 10/27/2017 HISTORY: ORDERING SYSTEM PROVIDED HISTORY: injury, TECHNOLOGIST PROVIDED HISTORY: Reason for exam: Forearm injury, right Injury/Trauma Cancer History: unk Surgery, RadiationHistory: unk Encounter Type: Initial Mechanism of injury: Forearm injury, impact , right ORDERING SYSTEM PROVIDED DIAGNOSIS CODES: S59.911A Forearm injury, right, initial encounter FINDINGS: Frontal and lateral views of the right forearm were obtained. There is a subcentimeter radiopaque foreign body versus dystrophic calcification within the distal forearm. On the frontal image, this is identified laterally measuring 3 mm in length. This is noted approximately 4 mm deep to the skin surface. A radiopaque ring is identified at the base of the 3rd digit. Osseous alignment is intact and satisfactory. Joint spaces are well maintained. There is no fracture or dislocation. Invalid Interpretation Code [employer] [place] Interface, [facility] - 11/06/2017 8:46 PM EDT EXAMINATION: XR FOREARM RIGHT 2 VIEWS 10/27/2017 HISTORY: ORDERING SYSTEM PROVIDED HISTORY: injury, TECHNOLOGIST PROVIDED HISTORY: Reason for exam: Forearm injury, right Injury/Trauma Cancer History: unk Surgery, RadiationHistory: unk Encounter Type: Initial Mechanism of injury: Forearm injury, impact , right ORDERING SYSTEM PROVIDED DIAGNOSIS CODES: S59.911A Forearm injury, right, initial encounter FINDINGS: Frontal and lateral views of the right forearm were obtained. There is a subcentimeter radiopaque foreign body versus dystrophic calcification within the distal forearm. On the frontal image, this is identified laterally measuring 3 mm in length. This is noted approximately 4 mm deep to the skin surface. A radiopaque ring is identified at the base of the 3rd digit. Osseous alignment is intact and satisfactory. Joint spaces are well maintained. There is no fracture or dislocation. IMPRESSION: 1. Triangular-shaped radiopaque foreign body versus dystrophic calcification involving the distal forearm noted laterally. 2. No acute fracture or dislocation. [employer] Workstation ID: [id number] Invalid Interpretation Code [employer] [place] Mammography Screening Alli B ilateralon 05-05-2017 Mammography Screening Alli Bilateral No mammographic evidence of malignancy. BIRADS: BIRADS - CATEGORY 1 Negative, no evidence of malignancy. Normal interval follow-up is recommended in 12 months. OVERALL ASSESSMENT - NEGATIVE A letter of notification will be sent to the patient regarding the results. [facility], along with the [employer], the [employer], and [facility], recommend annual screening mammograms for women age 40 and older. [facility] Workstation ID: [id number] Invalid Interpretation Code [facility] Mammography Screening Alli Bilateral EXAMINATION: BILATERAL DIGITAL SCREENING MAMMOGRAM WITH TOMOSYNTHESIS INDICATION: Annual screening exam. COMPARISON: Mammograms 2017, 2016, 2009. TECHNIQUE: Standard mammographic views, 2D and 3D. Computer-aided detection was utilized in the interpretation of this exam. FINDINGS: The breast tissue is heterogeneously dense. No suspicious masses, calcifications, or other findings. No significant interval change. Invalid Interpretation Code [facility] CBC and Differentialon 04-10 Creatinine The following orders were created for panel order CBC and Differential. Procedure Abnormality Status --------- ------ CBC Auto Differential[[id number]] Normal Final result Please view results for these tests on the individual orders. Invalid Interpretation Code [facility] Comprehensive Metabolic Pane yeni 04-10-2017 Alanine aminotransferase (ALT) 12 U/L Invalid Interpretation Code 0 - 40 U/L [facility] Albumin 4.6 g/dL Invalid Interpretation Code 3.2 - 5.2 g/dL [facility] Alkaline phosphatase (ALP) 85 U/L Invalid Interpretation Code 40 - 150 U/L [facility] Anion gap 18 mmol/L Invalid Interpretation Code 10 - 20 mmol/L [facility] Aspartate aminotransferase (AST) 16 U/L Invalid Interpretation Code 0 - 45 U/L [facility] Bicarbonate (HCO3) 26 mmol/L Invalid Interpretation Code 21 - 32 mmol/L [facility] Bilirubin (total) 0.4 mg/dL Invalid Interpretation Code 0 - 1.3 mg/dL [facility] BUN/Creatinine Ratio 20.0 mg/mg Invalid Interpretation Code 10.0 - 20.0 [facility] Calcium 9.7 mg/dL Invalid Interpretation Code 8.4 - 10.2 mg/dL [facility] Chloride 101 mmol/L Invalid Interpretation Code 98 - 108 mmol/L [facility] Creatinine 0.60 mg/dL Invalid Interpretation Code 0.4 - 1.1 mg/dL [facility] eGFR (non-black) 112 mL/min/{1.73_m2} Invalid Interpretation Code >=60 [facility] eGFR (non-black) The eGFR should be used for monitoring renal function only and not for medication dosing. Invalid Interpretation Code [facility] Glucose 97 mg/dL Invalid Interpretation Code 68 - 126 mg/dL [facility] Potassium 4.5 mmol/L Invalid Interpretation Code 3.5 - 5.1 mmol/L [facility] Protein 7.0 g/dL Invalid Interpretation Code 6 - 8 g/dL [facility] Sodium 140 mmol/L Invalid Interpretation Code 135 - 145 mmol/L [facility] Urea nitrogen 12 mg/dL Invalid Interpretation Code 8 - 25 mg/dL [facility] ECG 12 [place] 04-10-2017 Atrial Rate Invalid Interpretation Code [facility] P [place] Invalid Interpretation Code [facility] P-R Interval Invalid Interpretation Code [facility] Q-T Interval Invalid Interpretation Code [facility] Q-T Interval (corrected) Invalid Interpretation Code [facility] QRS Duration Invalid Interpretation Code [facility] QTC Calculation (Bezet) Invalid Interpretation Code [facility] R [place] Invalid Interpretation Code [facility] T [place] Invalid Interpretation Code [facility] Ventricular Rate Invalid Interpretation Code [facility] Hemoglobin A1con 04-10-2017 HbA1c 5.0 % Invalid Interpretation Code 4.2 - 6 % [facility] Lipid Panelon 04-10-2017 Cholesterol 189 mg/dL Invalid Interpretation Code 100 - 199 mg/dL [facility] Cholesterol to HDL Ratio 2.1 {ratio} Invalid Interpretation Code [facility] HDL Cholesterol 100 mg/dL Invalid Interpretation Code [facility] HDL Cholesterol 89 mg/dL High 40 - 59 mg/dL [facility] Interpretation and review of laboratory results Abnormal Invalid Interpretation Code [facility] LDL Cholesterol 86 mg/dL Invalid Interpretation Code 10 - 130 mg/dL [facility] Triglyceride 72 mg/dL Invalid Interpretation Code 30 - 150 mg/dL [facility] POC Urinalysis Dipstickon Interpretation and review of laboratory results Abnormal Invalid Interpretation Code [facility] Urine, bilirubin presence Negative Invali d Interpretation Code Negative [facility] Urine, glucose presence Negative Invalid Interpretation Code Normal, Negative mg/dL [facility] Urine, hemoglobin presence Negative Invalid Interpretation Code Negative [facility] Urine, ketones presence Negative Invalid Interpretation Code Negative mg/dL [facility] Urine, leukocyte esterase presence Negative Invalid Interpretation Code Negative [facility] Urine, nitrite presence Negative Invalid Interpretation Code Negative [facility] Urine, pH 1.0 [pH] Abnormal 5.0 - 7.[address] [facility] Urine, protein presence Negative Invalid Interpretation Code Negative mg/dL [facility] Urine, specific gravity 1.000 1 Abnormal 1.00 5 - 1.[address] [facility] Urine, urobilinogen 0.2 mg/dL Invalid Interpretation Code <2.0, 0.2, Normal, Negative, 1.0, 2.0, <1.[address] [facility] TSH with Reflex Free T4on Thyroid stimulating hormone (TSH) 1.80 mcIU/mL Invalid Interpretation Code 0.32 - 5.00 [facility] Vitamin B12on 04-10-2017 Cobalamins (Vitamin B12) 397 pg/mL Invalid Interpretation Code 232 - 1245 pg/mL [facility] Interpretation and review of laboratory results Normal Invalid Interpretation Code [facility] Vitamin D, Total, 25-OHon Vit D, 25-Hydroxy 15 ng/mL Low 30 - 100 ng/mL [facility] Vitamin D, Total, 25-OH Assay performed using [employer] CLIA methodology. Invalid Interpretation Code [facility] Gram stain for investigation of transfusion reaction Microscopic observation Gram stain Nom (Unsp spec) [facility] Work Phone: Vital Signs Date Time Vital Sign Value Performing Clinician Facility 11-05-2024 11:31-0400 Diastolic blood pressure 94 mm[Hg] Galilea Whitaker [facility] Work Phone: [facility] 11-05-2024 11:31-0400 Systolic blood pressure 158 mm[Hg] Galilea Whitaker CASEWORKER Work Phone: [facility] 11-05-2024 10:56-0400 Body mass index (BMI) [Ratio] 26.15 kg/m2 Galilea Whitaker CASEWORKER Work Phone: [facility] 11-05-2024 10:56-0400 Body temperature 98.2 [degF] Galilea Whitaker CASEWORKER Work Phone: [facility] 11-05-2024 10:56-0400 Body weight 78.02 kg Galilea Whitaker CASEWORKER Work Phone: [facility] 11-05-2024 10:56-0400 Heart rate 65 /min Galilea Whitaker CASEWORKER Work Phone: [facility] 11-05-2024 10:56-0400 SaO2% (BldA) [Mass fraction] 96 % Galilea Whitaker CASEWORKER Work Phone: [facility] 10-20-2024 13:32-0400 Body height 172.72 cm Galilea Whitaker [employer]OR [employer]-C Work Phone: [facility] 10-20-2024 13:32-0400 Body mass index (BMI) [Ratio] 26.8 kg/m2 Galilea Whitaker [employer] Work Phone: [facility] 10-20-2024 13:32-0400 Body temperature 98.2 [degF] Galilea Whitaker [employer] Work Phone: [facility] 10-20-2024 13:32-0400 Body weight 80.05 kg Galilea Whitaker [employer] Work Phone: [facility] 10-20-2024 13:32-0400 Diastolic blood pressure 99 mm[Hg] Galilea Whitaker [employer] Work Phone: [facility] 10-20-2024 13:32-0400 Heart rate 56 /min Galilea Whitaker [employer] Work Phone: [facility] 10-20-2024 13:32-0400 Respiratory rate 14 /min Galilea Whitaker [employer] Work Phone: [facility] 10-20-2024 13:32-0400 SaO2% (BldA) [Mass fraction] 97 % Galilea Whitaker [employer] Work Phone: [facility] 10-20-2024 13:32-0400 Systolic blood pressure 147 mm[Hg] Galilea Whitaker [employer] Work Phone: [facility] 10-10-2024 09:44-0400 Body height 172.72 cm Galilea Whitaker [employer] Work Phone: [facility] 10-10-2024 09:44-0400 Body mass index (BMI) [Ratio] 26.1 kg/m2 Galilea Whitaker [employer] Work Phone: [facility] 10-10-2024 09:44-0400 Body temperature 98.3 [degF] Galilea Whitaker [employer] Work Phone: [facility] 10-10-2024 09:44-0400 Body weight 78.01 kg Galilea Whitaker [employer] Work Phone: [facility] 10-10-2024 09:44-0400 Diastolic blood pressure 70 mm[Hg] Galilea Whitaker [employer] Work Phone: [facility] 10-10-2024 09:44-0400 Heart rate 76 /min Galilea Whitaker [employer] Work Phone: [facility] 10-10-2024 09:44-0400 SaO2% (BldA) [Mass fraction] 96 % Galilea Whitaker [employer] Work Phone: [facility] 10-10-2024 09:44-0400 Systolic blood pressure 136 mm[Hg] Galilea Whitaker [employer] Work Phone: [facility] 06-25-2024 15:19-0400 Body height 170.2 cm Sameera Gonzales MD Work Phone: [facility] 06-25-2024 15:19-0400 Body mass index (BMI) [Ratio] 26.63 kg/m2 Sameera Gonzales MD Work Phone: [facility] 06-25-2024 15:19-0400 Body weight 77.11 kg Sameera Gonzales MD Work Phone: [facility] 06-25-2024 15:19-0400 Diastolic blood pressure 72 mm[Hg] Sameera Gonzales MD Work Phone: [facility] 06-25-2024 15:19-0400 Heart rate 59 /min Sameera Gonzales MD Work Phone: [facility] 06-25-2024 15:19-0400 Systolic blood pressure 130 mm[Hg] Sameera Gonzales MD Work Phone: [facility] 05-21-2024 10:34-0400 Body height 170.3 cm Galilea Whitaker CASEWORKER Work Phone: [facility] 05-21-2024 10:34-0400 Body mass index (BMI) [Ratio] 26.59 kg/m2 Galilea Whitaker CASEWORKER Work Phone: [facility] 05-21-2024 10:34-0400 Body temperature 97.9 [degF] Galilea Whitaker CASEWORKER Work Phone: [facility] 05-21-2024 10:34-0400 Body weight 77.11 kg Galilea Whitaker CASEWORKER Work Phone: [facility] 05-21-2024 10:34-0400 Diastolic blood pressure 85 mm[Hg] Galilea Whitaker CASEWORKER Work Phone: [facility] 05-21-2024 10:34-0400 Heart rate 74 /min Galilea Whitaker CASEWORKER Work Phone: [facility] 05-21-2024 10:34-0400 SaO2% (BldA) [Mass fraction] 97 % Galilea Whitaker CASEWORKER Work Phone: [facility] 05-21-2024 10:34-0400 Systolic blood pressure 133 mm[Hg] Galileajeanne Whitaker CASEWORKER Work Phone: [facility] 04-05-2024 14:49-0500 Body height 172.7 cm Vania Gunter CASEWORKER Work Phone: [facility] 04-05-2024 14:49-0500 Body mass index (BMI) [Ratio] 25.09 kg/m2 Vania Gunter CASEWORKER Work Phone: [facility] 04-05-2024 14:49-0500 Body weight 74.84 kg Vania Gunter MYLA Work Phone: [facility] 04-01-2024 09:57-0500 Body height 172.7 cm Yung CARRINGTON-C Work Phone: [facility] 04-01-2024 09:57-0500 Body mass index (BMI) [Ratio] 25.74 kg/m2 Yung CARRINGTON-C Work Phone: [facility] 04-01-2024 09:57-0500 Body weight 76.8 kg Yung CARRINGTON-C Work Phone: [facility] 04-01-2024 09:57-0500 Diastolic blood pressure 88 mm[Hg] Yung CARRINGTON-C Work Phone: [facility] Comment on above: didn't take her BP meds yet 04-01-2024 09:57-0500 Heart rate 68 /min Yung GRESHAMC Work Phone: [facility] 04-01-2024 09:57-0500 SaO2% (BldA) [Mass fraction] 98 % Yung CARRINGTON-C Work Phone: [facility] 04-01-2024 09:57-0500 Systolic blood pressure 144 mm[Hg] Yung CARRINGTON-C Work Phone: [facility] Comment on above: didn't take her BP meds yet 02-16-2024 08:46-0500 Body temperature 97.7 [degF] No Primary Care Physician [facility] 02-16-2024 08:46-0500 Diastolic blood pressure 87 mm[Hg] No Primary Care Physician [facility] 02-16-2024 08:46-0500 Heart rate 70 /min No Primary Care Physician [facility] 02-16-2024 08:46-0500 Respiratory rate 16 /min No Primary Care Physician [facility] 02-16-2024 08:46-0500 SaO2% (BldA) [Mass fraction] 97 % No Primary Care Physician [facility] 02-16-2024 08:46-0500 Systolic blood pressure 133 mm[Hg] No Primary Care Physician [facility] 02-16-2024 06:00-0500 Body mass index (BMI) [Ratio] 23.6 kg/m2 No Primary Care Physician [facility] 02-16-2024 06:00-0500 Body weight 76.6 kg No Primary Care Physician [facility] 02-14-2024 10:40-0500 Body height 180.34 cm No Primary Care Physician [facility] 01-27-2024 08:34-0500 Body mass index (BMI) [Ratio] 25.1 kg/m2 No Primary Care Physician [facility] 01-27-2024 08:34-0500 Body weight 74.95 kg No Primary Care Physician [facility] 01-27-2024 08:34-0500 Diastolic blood pressure 82 mm[Hg] No Primary Care Physician [facility] 01-27-2024 08:34-0500 Systolic blood pressure 110 mm[Hg] No Primary Care Physician [facility] 11-21-2023 12:57-0400 Body mass index (BMI) [Ratio] 24.33 kg/m2 aGlilea Whitaker CNP Work Phone: [facility] 11-21-2023 12:57-0400 Body temperature 97.9 [degF] Galilea Whitaker CASEWORKER Work Phone: [facility] 11-21-2023 12:57-0400 Body weight 70.31 kg Galilea Whitaker CASEWORKER Work Phone: [facility] 11-21-2023 12:57-0400 Diastolic blood pressure 83 mm[Hg] Galilea Whitaker CASEWORKER Work Phone: [facility] 11-21-2023 12:57-0400 SaO2% (BldA) [Mass fraction] 97 % Galilea Whitaker CASEWORKER Work Phone: [facility] 11-21-2023 12:57-0400 Systolic blood pressure 133 mm[Hg] Galilea Whitaker CASEWORKER Work Phone: [facility] 05-27-2023 09:57-0400 Body height 170 cm Gaillea Whitaker CASEWORKER Work Phone: [facility] 05-27-2023 09:57-0400 Body mass index (BMI) [Ratio] 22.92 kg/m2 Galilea Whitaker CNP Work Phone: [facility] 05-27-2023 09:57-0400 Body temperature 97.9 [degF] Galilea Whitaker CNP Work Phone: [facility] 05-27-2023 09:57-0400 Body weight 66.22 kg Galilea Whitaker CNP Work Phone: [facility] 05-27-2023 09:57-0400 Diastolic blood pressure 75 mm[Hg] Galilea Whitaker CNP Work Phone: [facility] 05-27-2023 09:57-0400 Heart rate 56 /min Galilea Whitaker CASEWORKER Work Phone: [facility] 05-27-2023 09:57-0400 SaO2% (BldA) [Mass fraction] 97 % Galilea Whitaker [facility] Work Phone: [facility] 05-27-2023 09:57-0400 Systolic blood pressure 119 mm[Hg] Galilea Whitaker [facility] Work Phone: [facility] 04-20-2023 13:00-0400 Body temperature 98.2 [degF] [facility] 04-20-2023 13:00-0400 Diastolic blood pressure 55 mm[Hg] [facility] 04-20-2023 13:00-0400 Heart rate 90 /min [facility] 04-20-2023 13:00-0400 Respiratory rate 16 /min [facility] 04-20-2023 13:00-0400 SaO2% (BldA) [Mass fraction] 99 % [facility] 04-20-2023 13:00-0400 Systolic blood pressure 114 mm[Hg] [facility] 04-20-2023 10:53-0400 Body height 172.72 cm [facility] 04-20-2023 10:53-0400 Body mass index (BMI) [Ratio] 22.3 kg/m2 [facility]-20-[facility]23 10:53-0400 Body weight 66.67 kg GALILEAJEANNE WHITAKER [facility] 01-23-2023 09:51-0500 Body mass index (BMI) [Ratio] 23.7 kg/m2 GALILEAJEANNE WHITAKER [facility] 01-23-2023 09:51-0500 Body [facility].76 [facility]-23-[facility]23 09:51-0500 Diastolic blood pressure 81 mm[Hg] GALILEAJEANNE WHITAKER [facility] 01-23-2023 09:51-0500 Systolic blood pressure 117 mm[Hg] [facility] 11-19-2022 10:49-0400 Body height 170.2 cm Galilea Sherman CNP Work Phone: [facility] 11-19-2022 10:49-0400 Body mass index (BMI) [Ratio] 25.69 kg/m2 Galilea Whitaker CNP Work Phone: [facility] 11-19-2022 10:49-0400 Body temperature 98.29 [degF] Galilea Whitaker CNP Work Phone: [facility] 11-19-2022 10:49-0400 Body weight 74.39 kg Galilea Sherman CNP Work Phone: [facility] 11-19-2022 10:49-0400 Diastolic blood pressure 88 mm[Hg] Galilea Whitaker CNP Work Phone: [facility] 11-19-2022 10:49-0400 Heart rate 61 /min Galilea Sherman CNP Work Phone: [facility] 11-19-2022 10:49-0400 SaO2% (BldA) [Mass fraction] 95 % Galilea Sherman CNP Work Phone: [facility] 11-19-2022 10:49-0400 Systolic blood pressure 131 mm[Hg] Galilea Whitaker CNP Work Phone: [facility] 09-24-2022 15:00-0400 Body mass index (BMI) [Ratio] 25.93 kg/m2 Galilea Whitaker CASEWORKER Work Phone: [facility] 09-24-2022 15:00-0400 Body temperature 98.01 [degF] Galilea Whitaker CASEWORKER Work Phone: [facility] 09-24-2022 15:00-0400 Body weight 75.3 kg Galilea Whitaker CASEWORKER Work Phone: [facility] 09-24-2022 15:00-0400 Diastolic blood pressure 85 mm[Hg] Galilea Whitaker CASEWORKER Work Phone: [facility] 09-24-2022 15:00-0400 Heart rate 68 /min Galilea Whitaker CASEWORKER Work Phone: [facility] 09-24-2022 15:00-0400 SaO2% (BldA) [Mass fraction] 97 % Galilea Whitaker CASEWORKER Work Phone: [facility] 09-24-2022 15:00-0400 Systolic blood pressure 127 mm[Hg] Galilea Whitaker CASEWORKER Work Phone: [facility] 05-21-2022 10:09-0400 Body height 170.4 cm Galilea Whitaker CASEWORKER Work Phone: [facility] 05-21-2022 10:09-0400 Body mass index (BMI) [Ratio] 27.13 kg/m2 Galilea Whitaker CASEWORKER Work Phone: [facility] 05-21-2022 10:09-0400 Body temperature 98.1 [degF] Galilea Whitaker CASEWORKER Work Phone: [facility] 05-21-2022 10:09-0400 Body weight 78.79 kg Galilea Whitaker CASEWORKER Work Phone: [facility] 05-21-2022 10:09-0400 Diastolic blood pressure 86 mm[Hg] Galilea Sherman CASEWORKER Work Phone: [facility] 05-21-2022 10:09-0400 Heart rate 52 /min Galilea Whitaker CASEWORKER Work Phone: [facility] 05-21-2022 10:09-0400 SaO2% (BldA) [Mass fraction] 98 % Galilea Whitaker CASEWORKER Work Phone: [facility] 05-21-2022 10:09-0400 Systolic blood pressure 133 mm[Hg] Galilea Whtiaker CASEWORKER Work Phone: [facility] 04-07-2022 19:26-0500 Diastolic blood pressure 74 mm[Hg] [facility] 04-07-2022 19:26-0500 Heart rate 67 /min [facility] 04-07-2022 19:26-0500 Respiratory rate 15 /min [facility] 04-07-2022 19:26-0500 SaO2% (BldA) [Mass fraction] 99 % [facility] 04-07-2022 19:26-0500 Systolic blood pressure 130 mm[Hg] [facility] 04-07-2022 19:22-0500 Body temperature 98.2 [degF] [facility] 04-07-2022 17:02-0500 Body height 172.72 cm [facility] 04-07-2022 17:02-0500 Body mass index (BMI) [Ratio] 26.6 kg/m2 [facility] 04-07-2022 17:02-0500 Body weight 79.7 kg [facility] 12-28-2021 11:33-0500 Body height 172.72 cm [facility] Work Phone: 12-28-2021 11:33-0500 Body mass index (BMI) [Ratio] 26.5 kg/m2 [facility] 12-28-2021 11:33-0500 Body weight 79.15 kg [facility] 12-28-2021 11:33-0500 Diastolic blood pressure 83 mm[Hg] [facility] 12-28-2021 11:33-0500 Systolic blood pressure 125 mm[Hg] GALILEA [facility] 08-06-2021 13:19-0400 Body height 172.72 cm PA Presley Marcos PA Work Phone: [facility] Work Phone: 08-06-2021 13:18-0400 Body mass index (BMI) [Ratio] 25.7 kg/m2 PA Presley Marcos PA Work Phone: [facility] Work Phone: 08-06-2021 13:18-0400 Body weight 76.65 kg PA Presley Marcos PA Work Phone: [facility] Work Phone: 08-06-2021 13:18-0400 Diastolic blood pressure 82 mm[Hg] CHARISSA Marcos PA Work Phone: [facility] Work Phone: 08-06-2021 13:18-0400 Systolic blood pressure 114 mm[Hg] PA Presley Marcos PA Work Phone: [facility] Work Phone: 07-17-2021 12:33-0400 Body temperature 98.2 [degF] CHARISSA Marcos PA Work Phone: [facility] Work Phone: 07-17-2021 12:33-0400 Diastolic blood pressure 90 mm[Hg] CHARISSA Marcos PA Work Phone: [facility] Work Phone: 07-17-2021 12:33-0400 Heart rate 88 /min PA Presley Marcos PA Work Phone: [facility] Work Phone: 07-17-2021 12:33-0400 Respiratory rate 15 /min PA Presley Marcos PA Work Phone: [facility] Work Phone: 07-17-2021 12:33-0400 SaO2% (BldA) [Mass fraction] 99 % CHARISSA CARRINGTON Work Phone: [facility] Work Phone: 07-17-2021 12:33-0400 Systolic blood pressure 130 mm[Hg] CHARISSA CARRINGTON Work Phone: [facility] Work Phone: 05-28-2021 15:54-0400 Body weight 80.74 kg Alida Gregorio APRN.CASEWORKER Work Phone: [facility] 05-28-2021 15:54-0400 Diastolic blood pressure 88 mm[Hg] Alida Gregorio APRN.CASEWORKER Work Phone: [facility] 05-28-2021 15:54-0400 Heart rate 76 /min Alida Gregorio APRN.CASEWORKER Work Phone: [facility] 05-28-2021 15:54-0400 Systolic blood pressure 130 mm[Hg] Alida Gregorio APRN.CASEWORKER Work Phone: [facility] 05-15-2021 09:13-0400 Diastolic blood pressure 92 mm[Hg] Galilea Whitaker CASEWORKER Work Phone: [facility] Comment on above: left arm, regular cuff, manual 05-15-2021 09:13-0400 Systolic blood pressure 142 mm[Hg] Galilea Whitaker CASEWORKER Work Phone: [facility] Comment on above: left arm, regular cuff, manual 05-15-2021 08:46-0400 Body height 170.5 cm Galilea Whitaker CASEWORKER Work Phone: [facility] 05-15-2021 08:46-0400 Body mass index (BMI) [Ratio] 27.06 kg/m2 Galilea Whitaker CASEWORKER Work Phone: [facility] 05-15-2021 08:46-0400 Body temperature 97.81 [degF] Galilea Whitaker CASEWORKER Work Phone: [facility] 05-15-2021 08:46-0400 Body weight 78.65 kg Galilea Whitaker CNP Work Phone: [facility] 05-15-2021 08:46-0400 Heart rate 59 /min Galilea Whitaker CNP Work Phone: [facility] 05-15-2021 08:46-0400 SaO2% (BldA) [Mass fraction] 98 % Galilea Whitaker CNP Work Phone: [facility] 11-14-2020 14:03-0400 Diastolic blood pressure 92 mm[Hg] Galilea Whitaker CNP Work Phone: [facility] Comment on above: left arm, regular cuff, manual 11-14-2020 14:03-0400 Systolic blood pressure 132 mm[Hg] Galilea Whitaker CNP Work Phone: [facility] Comment on above: left arm, regular cuff, manual 11-14-2020 13:36-0400 Body mass index (BMI) [Ratio] 25.27 kg/m2 Galilea Whitaker CNP Work Phone: [facility] 11-14-2020 13:36-0400 Body temperature 98.29 [degF] Galilea Whitaker CNP Work Phone: [facility] 11-14-2020 13:36-0400 Body weight 75.39 kg Galilea Whitaker CNP Work Phone: [facility] 11-14-2020 13:36-0400 Heart rate 72 /min Galilea Whitaker CNP Work Phone: [facility] 11-14-2020 13:36-0400 SaO2% (BldA) [Mass fraction] 98 % Galilea Whitaker CNP Work Phone: [facility] 04-14-2020 09:44-0500 BP Diastolic 90 mm[Hg] Galileajeanne Whitaker [facility] Comment on above: Manual 04-14-2020 09:44-0500 BP Systolic 120 mm[Hg] Galilea Sherman [facility] Comment on above: Manual 04-14-2020 09:04-0500 BMI (Body Mass Index) 26.59 kg/m2 [facility] 04-14-2020 09:04-0500 Body Temperature 98.29 [degF] Galilea Whitaker [facility] 04-14-2020 09:04-0500 Body [facility] 79.33 [facility] 04-14-2020 09:04-0500 Height 172.7 cm Galilea [facility] 04-14-2020 09:04-0500 Pulse (Heart Rate) 72 /min [facility] 04-14-2020 09:04-0500 Pulse Oximetry 98 % [facility] 10-15-2019 14:36-0400 BP Diastolic 84 mm[Hg] [facility] Comment on above: left arm, regular cuff, manual 10-15-2019 14:36-0400 BP Systolic 128 mm[Hg] [facility] Comment on above: left arm, regular cuff, manual 10-15-2019 14:07-0400 BMI (Body Mass Index) 24.22 kg/m2 [facility] 10-15-2019 14:07-0400 Body Temperature 98.2 [degF] [facility] 10-15-2019 14:07-0400 Body weight 72.26 kg [facility] 10-15-2019 14:07-0400 Height 172.7 cm [facility] 10-15-2019 14:07-0400 Pulse (Heart Rate) 64 /min [facility] 10-15-2019 14:07-0400 Pulse Oximetry 98 % [facility] 07-13-2019 15:49-0400 BP Diastolic 80 mm[Hg] [facility] 07-13-2019 15:49-0400 BP Systolic 140 mm[Hg] [facility] 07-13-2019 14:57-0400 BMI (Body Mass Index) 24.3 kg/m2 [facility] 07-13-2019 14:57-0400 Body weight 72.48 kg [facility] 07-13-2019 14:57-0400 Height 172.7 cm [facility] 07-13-2019 14:57-0400 Pulse (Heart Rate) 78 /min [facility] 07-13-2019 14:57-0400 Pulse Oximetry 98 % Galilea Whitaker [facility] 02-26-2019 08:08-0500 BMI (Body Mass Index) 25.57 kg/m2 Galilea Whitaker [facility] 02-26-2019 08:08-0500 Body weight 76.3 kg Galilea Whitaker [facility] 02-26-2019 08:08-0500 BP Diastolic 82 mm[Hg] Galilea Whitaker [facility] 02-26-2019 08:08-0500 BP Systolic 134 mm[Hg] Galilea Whitaker [facility] 02-26-2019 08:08-0500 Height 172.7 cm Galilea Whitaker [facility] 02-26-2019 08:08-0500 Pulse (Heart Rate) 78 /min Galilea Whitaker [facility] 02-26-2019 08:08-0500 Pulse Oximetry 96 % Galilea Whitaker [facility] 11-26-2018 10:12-0400 BMI (Body Mass Index) 25.65 kg/m2 Chery Saez [facility] 11-26-2018 10:12-0400 Body weight 76.52 kg Chery Saez [facility] 11-26-2018 10:12-0400 BP Diastolic 79 mm[Hg] Chery Saez [facility] 11-26-2018 10:12-0400 BP Systolic 119 mm[Hg] Chery Saez [facility] 11-26-2018 10:12-0400 Height 172.7 cm Chery Saez [facility] 11-26-2018 10:12-0400 Pulse (Heart Rate) 62 /min Chery Saez [facility] 11-26-2018 10:12-0400 Pulse Oximetry 95 % Chery Saez [facility] 10-01-2018 09:37-0400 BP Diastolic 110 mm[Hg] Chery Saez [facility] Comment on above: Manual 10-01-2018 09:37-0400 BP Systolic 168 mm[Hg] Chery Saez [facility] Comment on above: Manual 10-01-2018 08:55-0400 BMI (Body Mass Index) 25.85 kg/m2 Chery Saez [facility] 10-01-2018 08:55-0400 Body Temperature 98.2 [degF] Chery Saez [facility] 10-01-2018 08:55-0400 Body weight 77.11 kg Chery Saez [facility] 10-01-2018 08:55-0400 Height 172.7 cm Chery Saez [facility] 10-01-2018 08:55-0400 Pulse (Heart Rate) 75 /min Chery Saez [facility] 10-01-2018 08:55-0400 Pulse Oximetry 97 % Chery Saez [facility] 07-30-2018 07:14-0400 BMI (Body Mass Index) 26.15 kg/m2 Robbyzoie Fermin [facility] 07-30-2018 07:14-0400 Body Temperature 97.7 [degF] [facility] Jeny [facility] 07-30-2018 07:14-0400 Body weight 78.02 kg [facility] 07-30-2018 07:14-0400 BP Diastolic 59 mm[Hg] [facility] Jeny [facility] 07-30-2018 07:14-0400 BP Systolic 131 mm[Hg] [facility] Jeny [facility] 07-30-2018 07:14-0400 Height 172.7 cm [facility] Jeny [facility] 07-30-2018 07:14-0400 Pulse (Heart Rate) 76 /min [facility] 07-30-2018 07:14-0400 Pulse Oximetry 100 % [facility] 07-30-2018 07:14-0400 Respiratory Rate 16 /min [facility] Jeny [facility] 07-16-2018 09:42-0400 BMI (Body Mass Index) 25.16 kg/m2 Galilea Whitaker [facility] 07-16-2018 09:42-0400 Body weight 77.29 kg Galilea Whitaker [facility] 07-16-2018 09:42-0400 BP Diastolic 81 mm[Hg] Galilea Whitaker [facility] 07-16-2018 09:42-0400 BP Systolic 119 mm[Hg] Galilea Whitaker [facility] 07-16-2018 09:42-0400 Height 175.3 cm Galilea Whitaker [facility] 07-16-2018 09:42-0400 Pulse (Heart Rate) 58 /min Galilea Whitaker [facility] 07-16-2018 09:42-0400 Pulse Oximetry 96 % Galilea Whitaker [facility] 03-16-2018 14:20-0500 BMI (Body Mass Index) 25.99 kg/m2 Galilea Whitaker [facility] 03-16-2018 14:20-0500 BP Diastolic 82 mm[Hg] Galilea Whitaker [facility] 03-16-2018 14:20-0500 BP Systolic 128 mm[Hg] Galilea Whitaker [facility] 03-16-2018 14:20-0500 Height 175.3 cm Galilea Whitaker [facility] 03-16-2018 14:20-0500 Pulse (Heart Rate) 74 /min Galilea Whitaker [facility] 03-16-2018 14:20-0500 Pulse Oximetry 98 % Galilea Whitaker [facility] 03-16-2018 14:20-0500 [facility] 79.83 [facility] 11-06-2017 09:43-0400 BMI (Body Mass Index) 25.4 kg/m2 [facility] 11-06-2017 09:43-0400 Body Temperature 98.49 [degF] [facility] 11-06-2017 09:43-0400 BP Diastolic 90 mm[Hg] [facility] 11-06-2017 09:43-0400 BP Systolic 139 mm[Hg] [facility] 11-06-2017 09:43-0400 Height 175.3 cm [facility] 11-06-2017 09:43-0400 Pulse (Heart Rate) 56 /min [facility] 11-06-2017 09:43-0400 Pulse Oximetry 98 % [facility] 11-06-2017 09:43-0400 Respiratory Rate 12 /min [facility] 11-06-2017 09:43-0400 Weight 78.02 kg [facility] 10-14-2017 14:30-0400 BMI (Body Mass Index) 26.61 kg/m2 [facility] 10-14-2017 14:30-0400 Body Temperature 98.29 [degF] [facility] 10-14-2017 14:30-0400 BP Diastolic 102 mm[Hg] [facility] 10-14-2017 14:30-0400 BP Systolic 162 mm[Hg] [facility] 10-14-2017 14:30-0400 Height 172.7 cm [facility] 10-14-2017 14:30-0400 Pulse (Heart Rate) 68 /min Galilea Whitaker [facility] 10-14-2017 14:30-0400 Respiratory Rate 16 /min Galilea Whitaker [facility] 10-14-2017 14:30-0400 Weight 79.38 kg Galilea Whitaker [facility] 04-10-2017 08:34-0500 BMI (Body Mass Index) 26.12 kg/m2 Galilea Whitaker [facility] 04-10-2017 08:34-0500 Body Temperature 98.1 [degF] Galilea Whitaker [facility] 04-10-2017 08:34-0500 BP Diastolic 80 mm[Hg] Galilea Whitaker [facility] 04-10-2017 08:34-0500 BP Systolic 140 mm[Hg] Galilea Whitaker [facility] 04-10-2017 08:34-0500 Height 172.7 cm Galilea Whitaker [facility] 04-10-2017 08:34-0500 Pulse (Heart Rate) 72 /min Galilea Whitaker [facility] 04-10-2017 08:34-0500 Pulse Oximetry 99 % Galilea Whitaker [facility] 04-10-2017 08:34-0500 Respiratory Rate 16 /min Galilea Whitaker [facility] 04-10-2017 08:34-0500 Weight 77.93 kg Galilea Whitaker [facility] 10-08-2016 09:16-0400 BMI (Body Mass Index) 26.91 kg/m2 Galilea Whitaker [facility] Work Phone: 10-08-2016 09:16-0400 BP Diastolic 92 mm[Hg] Galilea Whitaker [facility] Work Phone: 10-08-2016 09:16-0400 BP Systolic 157 mm[Hg] Galilea Whitaker [facility] Work Phone: 10-08-2016 09:16-0400 Height 172.7 cm Galilea Whitaker [facility] Work Phone: 10-08-2016 09:16-0400 Pulse (Heart Rate) 54 /min Galilea Whitaker [facility] Work Phone: 10-08-2016 09:16-0400 Pulse Oximetry 97 % Galilea Whitaker [facility] Work Phone: 10-08-2016 09:16-0400 Weight 80.29 kg Galilea Whitaker [facility] Work Phone: Encounters Encounter Date Encounter Type Care Provider Facility Start: 12-23-2024 ambulatory Conrad Holt Facility :[facility] Start: 12-14-2024 ambulatory GALILEA KING SHERMAN [facility] Start: 12-09-2024 End: 12-09-2024 ambulatory Paola Kumar Facility:[facility] Start: 12-07-2024 End: 12-07-2024 ambulatory Paolaangela Heath Facility:[facility] Start: 11-29-2024 End: 11-29-2024 Patient encounter procedure Paola Heath DIRECTOR FIELD SERVICES-C -[facility] Work Phone: Start: 11-29-2024 End: 11-29-2024 ambulatory Galilea Whitaker DIRECTOR FIELD SERVICES-C Work Phone: -[facility] Start: 11-05-2024 End: 11-05-2024 Office outpatient visit 25 minutes Galilea Whitaker CASEWORKER Work Phone: [facility] Comment on above: Essential hypertensi on (Primary Dx); GOPAL (acute kidney injury); Chronic constipation; Bloating; Urinary frequency; Weight gain Start: 11-05-2024 End: 11-05-2024 ambulatory GALILEA KING SHERMAN [facility] Start: 10-20-2024 End: 10-20-2024 ambulatory GALILEA WHITAKER Facility:[facility] Start: 10-10-2024 End: 10-10-2024 Patient encounter procedure Richard Steele DIRECTOR FIELD SERVICES-C [facility] Work Phone: Start: 10-10-2024 End: 10-10-2024 ambulatory Galilea Whitaker DIRECTOR FIELD SERVICES-C Work Phone: -[facility] Start: 08-30-2024 End: 08-31-2024 Refill Galilea Whitaker CASEWORKER Work Phone: [facility] Comment on above: Herpes labialis (Tanna rusty Dx) Start: 07-19-2024 End: 07-19-2024 Emergency department patient visit BELLA ARCHULETA [facility] Start: 07-16-2024 End: 07-16-2024 Postop follow up visit related to original px Sameera Gonzales MD Work Phone: [facility] Comment on above: Epidermoid cyst of h and (Primary Dx) Start: 07-16-2024 End: 07-16-2024 ambulatory SAMEERA GONZALES [facility] Start: 07-07-2024 End: 07-08-2024 Online digital e/m svc est pt <7 d 5-10 minutes Galilea Whitaker CASEWORKER Work Phone: [facility] Comment on above: E-Visit for Vaginal Discharge / Irritation Start: 07-07-2024 End: 07-08-2024 ambulatory GALILEA WHITAKER [facility] Start: 07-02-2024 End: 07-02-2024 ambulatory SAMEERA GONZALES [facility] Start: 06-25-2024 End: 06-25-2024 Office outpatient visit 10 minutes Sameera Gonzales MD Work Phone: [facility] Comment on above: Epidermoid cyst of h and (Primary Dx) Start: 06-25-2024 End: 06-25-2024 ambulatory SAMEERA GONZALES [facility] Start: 06-11-2024 End: 06-14-2024 Online digital e/m svc est pt <7 d 5-10 minutes Galilea Whitaker CASEWORKER Work Phone: [facility] Comment on above: E-Visit for Vaginal Discharge / Irritation Start: 06-11-2024 End: 06-14-2024 ambulatory GALILEA WHITAKER [facility] Start: 06-10-2024 End: 06-10-2024 Admission to same day surgery center Sameera Gonzales MD Work Phone: [facility] Comment on above: Epidermoid cyst of h and (Primary Dx) Start: 06-01-2024 End: 06-01-2024 Office outpatient visit 5 minutes Vania Gunter CASEWORKER Work Phone: [facility] Comment on above: Epidermoid cyst of h and (Primary Dx) Start: 06-01-2024 End: 06-01-2024 ambulatory GALILEA WHITAKER [facility] Start: 05-31-2024 End: 05-31-2024 ambulatory PROVIDER NOT IN SYSTEM [facility] Start: 05-24-2024 End: 07-24-2024 Follow-up encounter Galilea Whitaker CASEWORKER Work Phone: [facility] Comment on above: POC Urinalysis Dipst ick, Lipid Panel, Comprehensive Metabolic Panel, Additional followed-up results: 3 Start: 05-21-2024 End: 05-21-2024 Patient encounter procedure Galilea Whitaker CASEWORKER Work Phone: [facility] Work Phone: Start: 05-21-2024 End: 05-21-2024 Periodic preventive med est patient 40-64yrs Glailea Whitaker CASEWORKER Work Phone: [facility] Comment on above: Annual physical exam (Primary Dx); Essential hypertension; GOPAL (acute kidney injury); Vitamin D deficiency; Vitamin B12 deficiency Start: 05-21-2024 End: 05-21-2024 ambulatory GALILEA WHITAKER [facility] Start: 05-21-2024 End: 05-21-2024 Encounter for general adult medical examination without abnormal findings GALILEA KING [facility] Start: 05-12-2024 End: 05-12-2024 ambulatory No Primary Care Physician [facility] Work Phone: Start: 05-12-2024 End: 05-12-2024 Patient encounter procedure No Primary Care Physician -[facility] Work Phone: Start: 05-12-2024 End: 05-12-2024 ambulatory AUBREY CARRANZA Facility:[facility] Start: 04-05-2024 End: 04-05-2024 Office outpatient new 30 minutes Vania Gunter CASEWORKER Work Phone: [facility] Comment on above: Ganglion cyst (Prima ry Dx) Start: 04-05-2024 End: 04-09-2024 Orders Only Galilea Whitaker CASEWORKER Work Phone: [facility] Comment on above: GOPAL (acute kidney in jury) (Primary Dx); Urinary frequency Start: 04-01-2024 End: 04-01-2024 ambulatory SELF Facility:[facility] Start: 04-01-2024 End: 04-01-2024 Patient encounter procedure Yung Francis PA-C Work Phone: [facility] [place] Comment on above: Chronic left shoulde r pain (Primary Dx); Cervical spondylosis without myelopathy Start: 02-21-2024 End: 02-21-2024 Emergency department patient visit BELLA [facility] Start: 02-20-2024 ambulatory GALILEA WHITAKER [facility] Start: 02-17-2024 End: 02-17-2024 Orders Only Galilea Whitaker CASEWORKER Work Phone: [facility] Comment on above: GOPAL (acute kidney in jury) (Primary Dx) Start: 02-16-2024 Non-patient / Non-visit Dr. Lupe Peña MD -[facility] Work Phone: Start: 02-15-2024 End: 02-15-2024 ambulatory Micky Moss Facility:[facility] Start: 02-15-2024 End: 02-15-2024 Non-patient / Non-visit Dr. Micky Moss MD -[facility] Work Phone: Start: 02-15-2024 Non-patient / Non-visit Dr. Lupe Peña MD -[facility] Work Phone: Start: 02-14-2024 ambulatory AUBREY CARRANZA Facility:[facility] Start: 02-14-2024 End: 02-16-2024 Evaluation and management of inpatient Dr. Ilya Peña MD -[facility] Work Phone: Start: 01-29-2024 ambulatory Lizbeth Barkman Facility :[facility] Start: 01-27-2024 End: 01-27-2024 Patient encounter procedure Mable Mckeon DIRECTOR FIELD SERVICES-C -[facility] Work Phone: Start: 01-27-2024 End: 01-27-2024 Patient encounter status Mable Gallegostings DIRECTOR FIELD SERVICES-C [facility] Start: 01-27-2024 End: 01-27-2024 ambulatory Mable Mckeon NP Facility[facility] Start: 01-27-2024 End: 01-27-2024 ambulatory Yaa Camejomirlande Facility:[facility] Start: 01-23-2024 End: 01-23-2024 Orders Only Galilea Whitaker CASEWORKER Work Phone: [facility] Comment on above: Chronic migraine wit hout aura without status migrainosus, not intractable Start: 11-21-2023 End: 11-25-2023 ambulatory GALILEA WHITAKER [facility] Start: 11-21-2023 End: 11-21-2023 Office outpatient visit 25 minutes Galilea Whitaker CASEWORKER Work Phone: [facility] Comment on above: Essential hypertensi on (Primary Dx); Chronic constipation; Chronic migraine without aura without status migrainosus, not intractable; Cyst of joint of left hand Start: 05-27-2023 End: 05-27-2023 Patient encounter procedure Galilea Whitaker CASEWORKER Work Phone: [facility] Start: 05-27-2023 End: 05-27-2023 Periodic preventive med est patient 40-64yrs Galilea Whitaker CASEWORKER Work Phone: [facility] Comment on above: Annual physical exam (Primary Dx); Essential hypertension; Chronic migraine without aura without status migrainosus, not intractable; Vitamin D deficiency; Vitamin B12 deficiency Start: 04-20-2023 End: 04-20-2023 Emergency department patient visit GALILEA WHITAKER [facility] Work Phone: Start: 02-18-2023 Orders Only Galilea Whitaker CASEWORKER Work Phone: [facility] Comment on above: Herpes labialis (Tanna rusty Dx) Herpes labialis Start: 01-23-2023 End: 01-23-2023 Patient encounter procedure GALILEA WHITAKER [facility] Work Phone: Start: 01-14-2023 End: 01-14-2023 ambulatory Alida Owens PT [facility] Comment on above: Pain in joint, multi ple sites (Primary Dx); Benign joint hypermobility syndrome Start: 01-09-2023 ambulatory Austen Lozoya MD Work Phone: Rheumatology Comment on above: Thank you Start: 01-08-2023 End: 01-08-2023 Subsequent hospital visit by physician Xr [facility] Work Phone: Radiology Comment on above: Benign joint hypermo bility syndrome [M35.7] Start: 11-19-2022 End: 11-19-2022 Office outpatient visit 25 minutes Galilea Whitaker CASEWORKER Work Phone: [facility] Comment on above: Arthralgia, unspecif ied joint (Primary Dx); Chronic migraine without aura without status migrainosus, not intractable; Essential hypertension; Fatigue, unspecified type; Generalized hypermobility of joints; Other chronic gastritis without hemorrhage Start: 11-05-2022 Patient encounter procedure Richard Robbins MD Work Phone: [facility] Start: 09-24-2022 End: 09-24-2022 Office outpatient visit 15 minutes Galilea Whitaker CASEWORKER Work Phone: [facility] Comment on above: Generalized abdomina l pain (Primary Dx) Start: 05-21-2022 End: 05-21-2022 Patient encounter procedure Galilea Whitaker CASEWORKER Work Phone: [facility] Start: 05-21-2022 End: 05-21-2022 Periodic preventive med est patient 40-64yrs Galilea Whitaker [facility] Work Phone: [facility] Comment on above: Annual physical exam (Primary Dx); Chronic migraine without aura without status migrainosus, not intractable; Essential hypertension; Vitamin D deficiency; Vitamin B12 deficiency; Vertigo; Psychophysiological insomnia Start: 04-16-2022 Refill Byron serrano MD Work Phone: Neurology Comment on above: Refill Request Start: 04-07-2022 End: 04-07-2022 Emergency department patient visit [facility] Start: 01-11-2022 End: 01-11-2022 ambulatory Byron Alexander MD Work Phone: Neurology Comment on above: RLS (restless legs s yndrome) (Primary Dx); Chronic insomnia Start: 01-11-2022 End: 01-11-2022 Telemedicine consultation with patient Byron Alexander MD Work Phone: [facility] Start: 12-28-2021 End: 12-28-2021 Patient encounter procedure [facility] Start: 12-28-2021 End: 12-28-2021 ambulatory [facility] Work Phone: Start: 12-28-2021 End: 12-28-2021 Patient encounter procedure [facility] Start: 11-19-2021 ambulatory [facility] Neurology Comment on above: sleep study update Start: 11-19-2021 E-mail encounter fro m caregiver [facility] Start: 11-16-2021 End: 11-16-2021 Patient encounter procedure [facility] Start: 11-14-2021 Chart abstracting [facility] Main Work Phone: Neurology Start: 10-26-2021 Chart abstracting Actigraphy N eur (Hist) Neurology Start: 08-06-2021 End: 08-06-2021 Patient encounter procedure CHARISSA CARRINGTON Work Phone: [facility]Laboratory, Specimen Start: 08-06-2021 End: 08-06-2021 Patient encounter procedure CHARISSA CARRINGTON Work Phone: [facility] Start: 08-02-2021 End: 08-02-2021 ambulatory Byron Alexander MD Work Phone: Neurology Comment on above: Dream enactment beha vior (Primary Dx) Start: 08-02-2021 End: 08-02-2021 Telemedicine consultation with patient Byron Alexander MD Work Phone: [facility] Start: 07-17-2021 End: 07-17-2021 Patient encounter procedure CHARISSA CARRINGTON Work Phone: [facility] Start: 05-28-2021 End: 05-28-2021 Patient encounter procedure Alida Gregorio APRN.CASEWORKER Work Phone: Cardiology Comment on above: Palpitations (Primar y Dx); Sleep terrors; Primary hypertension Start: 05-15-2021 End: 05-16-2021 ambulatory GALILEA WHITAKER [facility] Start: 05-15-2021 End: 05-15-2021 Patient encounter procedure Galilea Whitaker CASEWORKER Work Phone: [facility] Start: 05-15-2021 End: 05-15-2021 Periodic preventive med est patient 40-64yrs Galilea Whitaker CASEWORKER Work Phone: [facility] Comment on above: Annual physical exam (Primary Dx); Left hip pain; Essential hypertension; Palpitations; Eosinophilic esophagitis; Vitamin D deficiency; Vitamin B12 deficiency Start: 05-08-2021 Telephone encounter Alida Gregorio APRN.CASEWORKER Work Phone: [facility] Comment on above: Results Start: 05-07-2021 End: 05-07-2021 Patient encounter procedure Echocardiogram [facility] Work Phone: Cardiology Comment on above: Palpitations Start: 11-14-2020 End: 10-05-2021 Office outpatient visit 25 minutes Galilea Whitaker CASEWORKER Work Phone: [facility] Comment on above: Essential hypertensi on (Primary Dx); Anemia, unspecified type; Hair loss; Eosinophilic esophagitis; DUB (dysfunctional uterine bleeding) Start: 10-09-2020 Refill Galilea Whitaker CASEWORKER Work Phone: [facility] Comment on above: Chronic migraine wit hout aura without status migrainosus, not intractable Start: 05-12-2020 End: 05-12-2020 Refill Galilea Whitaker Work Phone: [facility] Comment on above: Essential hypertensi on Start: 04-14-2020 End: 04-14-2020 Periodic preventive med est patient 40-64yrs Galilea Whitaker Work Phone: [facility] Comment on above: Annual physical exam (Primary Dx); Environmental and seasonal allergies; Chronic idiopathic constipation; Vitamin D deficiency; Vitamin B12 deficiency; Tinnitus of both ears; Right hip pain Start: 03-17-2020 End: 03-17-2020 Orders Only Galilea Whitaker Work Phone: [facility] Comment on above: Gastroesophageal ref lux disease without esophagitis (Primary Dx) Start: 10-15-2019 End: 10-15-2019 Office outpatient visit 25 minutes Galilea Whitaker Work Phone: [facility] Comment on above: Essential hypertensi on (Primary Dx); Chronic idiopathic constipation; Chronic migraine without aura without status migrainosus, not intractable; Vitamin D deficiency Start: 08-05-2019 End: 08-05-2019 Patient encounter procedure Richard Robbins Work Phone: [facility] Start: 07-13-2019 End: 07-13-2019 Office outpatient visit 25 minutes Galilea Whitaker Work Phone: [facility] Comment on above: Weight loss (Primary Dx); Skin fissures; Cough; Burning tongue Start: 06-24-2019 End: 06-24-2019 Subsequent hospital visit by physician Galilea Whitaker Work Phone: [facility] Comment on above: Cough; Weight loss Start: 02-26-2019 End: 02-26-2019 Periodic preventive med est patient 40-64yrs Galilea Whitaker Work Phone: [facility] Comment on above: Annual physical exam (Primary Dx); Screening for colon cancer; Family history of GI tract cancer; Vitamin D deficiency; Essential hypertension; Generalized abdominal pain; Vitamin B12 deficiency; Fatigue, unspecified type Start: 02-25-2019 End: 02-25-2019 Subsequent hospital visit by physician Chery Saez Work Phone: [facility] [place] Comment on above: Essential hypertensi on Start: 11-26-2018 End: 11-26-2018 Office outpatient visit 25 minutes Chery Saez Work Phone: [facility] Comment on above: Essential hypertensi on; B12 deficiency; Macrocytosis Start: 10-08-2018 End: 10-08-2018 Patient encounter procedure Chery Saez Work Phone: [facility] Comment on above: B12 deficiency (Prim germaine Dx) Start: 10-01-2018 End: 10-01-2018 Office outpatient visit 25 minutes Chery Saez Work Phone: [facility] Comment on above: Malaise and fatigue; Vertigo; Bilateral hearing loss, unspecified hearing loss type; Tinnitus of both ears; Essential hypertension; Chronic migraine without aura without status migrainosus, not intractable Start: 07-30-2018 End: 07-30-2018 Emergency department patient visit Robby Romano Jeny Work Phone: [facility] Comment on above: Left ovarian cyst (P rimary Dx) Start: 07-16-2018 End: 07-16-2018 Office outpatient visit 15 minutes Galilea Whitaker Work Phone: [facility] Comment on above: Left otitis media, u nspecified otitis media type (Primary Dx); Environmental and seasonal allergies; Vertigo Start: 03-16-2018 End: 03-16-2018 Office outpatient visit 25 minutes Galilea Whitaker Work Phone: [facility] Comment on above: Encounter for preadm ission testing (Primary Dx); Essential hypertension; Patellofemoral arthritis of right knee; Orta's cyst of knee, right; Chronic migraine without aura without status migrainosus, not intractable Start: 11-06-2017 End: 11-07-2017 Patient encounter JACKSON CRUZ [facility] Start: 11-06-2017 End: 11-06-2017 Patient encounter Jackson Cruz Work Phone: [facility] Comment on above: Forearm injury, righ t, initial encounter Start: 11-06-2017 End: 11-06-2017 Office outpatient visit 15 minutes Jackson Cruz Work Phone: [facility] Comment on above: Forearm injury, righ t, initial encounter (Primary Dx); Hematoma Start: 10-14-2017 End: 10-14-2017 Office outpatient visit 15 minutes Galilea Whitaker Work Phone: [facility] Comment on above: Essential hypertensi on (Primary Dx); Chronic pain of right knee; High frequency hearing loss of both ears Start: 05-05-2017 End: 05-05-2017 Ambulatory Roseanna Meehan Work Phone: [facility] Start: 04-10-2017 Prev visit, est, age 40-64 Galilea Whitaker Work Phone: [facility] Start: 10-08-2016 Office/outpatient vi sit, est, level 3 Galilea Whitaker Work Phone: [facility] Procedures Date Procedure Procedure Detail Performing Clinician Start: 05-21-2024 Urnls dip stick/tablet rgnt non-auto w/o micrscp Galilea Whitaker CASEWORKER Work Phone: Start: 05-12-2024 MRI of upper limb No Primary Care Physician Start: 05-12-2024 MRI Galilea Whitaker CASEWORKER Work Phone: Start: 02-14-2024 Complete ultrasound of kidneys and bladder No Primary Care Physician Start: 02-14-2024 CT of abdomen and pelvis without contrast No Primary Care Physician Start: 01-27-2024 End: 01-27-2024 Screening mammography No Primary Care Physician Start: 05-27-2023 Urnls dip stick/tablet rgnt non-auto w/o micrscp Galilea King Sherman CASEWORKER Work Phone: Start: 05-27-2023 Lipid 1996 panel - Serum or Plasma Yung Francis PA-C Work Phone: Start: 04-20-2023 Measurement of occult blood in stool specimen using immunoassay GALILEA WHITAKER Start: 01-23-2023 Screening mammography GALILEA WHITAKER Start: 01-08-2023 Radex hand minimum 3 views Austen Lozoya MD Work Phone: Start: 11-05-2022 Colonoscopy Galilea Whitaker CN P Work Phone: Start: 05-21-2022 Urnls dip stick/tablet rgnt non-auto w/o micrscp Galilea Moore Jarrell Whitaker CASEWORKER Work Phone: Start: 05-21-2022 Lipid 1996 panel - Serum or Plasma Austen Lozoya MD Work Phone: Start: 04-07-2022 CT of face GALILEA WHITAKER Start: 04-07-2022 CT of head without contrast GALILEA DONAHUE Start: 12-28-2021 End: 12-28-2021 Screening mammography GALILEA WHITAKER Start: 11-14-2021 Actigraphy testing recording analysis i&r Byron Alexander MD Work Phone: Start: 08-01-2021 Adult depression screening assessment Byron Alexander MD Work Phone: Start: 04-05-2022 Urnls dip stick/tablet rgnt non-auto w/o micrscp Galilea Whitaker CASEWORKER Work Phone: Start: 05-07-2021 Echo tthrc r-t 2d w/wom-mode compl spec&colr d Alida Gregorio SHELDON.CASEWORKER Work Phone: Start: 12-22-2020 Mammography Galilea Whtiaker CN P Work Phone: Start: 04-14-2020 Urinalysis macro (dipstick) panel - Urine Galilea Teresa Whitaker Work Phone: Start: 12-15-2019 Microscopic observation [Identifier] in Cervix by Cyto stain Galilea Whitaker Start: 08-05-2019 Colonoscopy Galilea Whitaker CN P Work Phone: Start: 06-24-2019 Standard chest X-ray Galilea Whitaker Work Phone: Start: 03-26-2019 Mammography Richard Robbins Start: 02-26-2019 Urinalysis macro (dipstick) panel - Urine Galilea Moore Jarrell Whitaker Work Phone: Start: 02-25-2019 US angiography of renal artery Chery Dilia Saez Work Phone: Start: 07-30-2018 Us transvaginal Jared Reynoso Work Phone: Start: 07-30-2018 Choriogonadotropin ( test) [Presence] in Urine Jared Reynoso Work Phone: Start: 07-30-2018 Urinalysis Jared Reynoso Work Phone: Start: 07-30-2018 Basic metabolic 2000 panel - Serum or Plasma Jared Reynoso Work Phone: Start: 07-30-2018 Complete blood count with white cell differential, automated Jared Reynoso Work Phone: Start: 07-30-2018 Complete blood count with white cell differential, manual Jared Reynoso Work Phone: Start: 07-30-2018 DAVIS TOP Robby Fermin Work Phone: Start: 07-30-2018 LAVENDER TOP Robby Fermin Work Phone: Start: 07-30-2018 LIGHT BLUE TOP Robby Fermin Work Phone: Start: 07-30-2018 LIGHT GREEN TOP Robby Fermin Work Phone: Start: 07-30-2018 MINT GREEN TOP Robby Fermin Work Phone: Start: 07-30-2018 RAINBOW DRAW Robby Fermin Work Phone: Start: 03-16-2018 Urinalysis macro (dipstick) panel - Urine Galilea Whitaker Work Phone: Start: 03-16-2018 12 lead ECG Galilea Whitaker Work Phone: Start: 02-20-2018 Mammography Galilea Whitaker Start: 11-06-2017 End: 11-06-2017 Radex forearm 2 views Jackson Cruz Work Phone: Start: 04-10-2017 Adult depression screening assessment Galilea Whitaker Start: 06-27-2016 Microscopic observation [Identifier] in Cervix by Cyto stain Galilea Whitaker Investigation of tra nsfusion reaction CHARISSA CARRINGTON Work Phone: Plan of Treatment Date Care Activity Detail Author Start: 04-07-2032 Tetanus vaccination Tetanus: Every [address] [facility] Start: 04-07-2032 Urine microalbumin profile DTaP,Tdap,Td Vaccine (3 - Td or Tdap) [facility] Start: 08-04-2029 Screening for malign ant neoplasm of colon [facility] Start: 05-26-2028 Lipid panel Lipid Screening [facility] Start: 11-06-2027 Screening for malign ant neoplasm of colon [facility] Start: 05-22-2027 Lipid 1996 panel - S nikkie or Plasma Lipid Screening [facility] Start: 04-11-2028 Lipid panel Lipid Screening [facility] Start: 02-20-2027 Diabetes Screening Diabetes Screenin [facility] Start: 05-22-2026 Pneumococcal Vaccine : Age 50+ (1 of 1 - PCV) Pneumococcal Vaccine: Age 50+ (1 of 1 - PCV) [facility] Comment on above: Postponed from 11/23 (Not Indicated) Start: 11-19-2025 Diabetes Screening Diabetes Screenin [facility] Start: 05-21-2025 Administration of he rpes zoster vaccine Zoster Vaccines (1 of 2) [facility] Comment on above: Postponed from 11/23 (Patient Refused) Start: 05-21-2025 COVID-19 Vaccine ( season) COVID-19 Vaccine ( season) [facility] Comment on above: Postponed from 10/11 (Patient Refused) Start: 05-21-2025 History and physical examination, annual for health maintenance Wellness Visit [facility] Start: 04-05-2025 TETANUS EVERY 10 YR TETANUS EVERY [address] [facility] Work Phone: Start: 04-05-2025 Tetanus vaccination [facility] Start: 03-11-2025 End: 03-11-2025 Patient encounter procedure 03/11/2025 11:00 AM EST Office Visit [facility] [address] [place] [address] Galilea Whitaker, CASEWORKER [address] [place] [address] [facility] Start: 01-26-2025 Screening for malign ant neoplasm of breast Mammogram [facility] Start: 12-14-2024 Screening for malign ant neoplasm of cervix [facility] Start: 12-09-2024 Plain X-ray abdomen Abdomen Single V [facility] Start: 12-09-2024 Patient encounter procedure Registered [facility] Work Phone: Start: 12-07-2024 Plain X-ray abdomen Abdomen Single V [facility] Start: 12-07-2024 End: 12-07-2024 Patient encounter procedure Departed [facility] Work Phone: Start: 11-26-2024 [facility]ABET[facility] Start: 11-26-2024 Diabetes Screening Diabetes Screenin g [facility] Start: 11-20-2024 Depression screening using PHQ-9 (Patient Health Questionnaire 9) score Depression Screening/Follow-Up (PHQ-2/9) [facility] Start: 11-05-2024 End: 11-05-2024 Patient encounter procedure 11/05/2024 11:00 AM EDT Office Visit [facility] [address] [place] [address] Galilea Whitaker, [facility] [address] [place] [address] [facility] Start: 10-11-2024 COVID-19 Vaccine ( season) COVID-19 Vaccine () [facility] Start: 07-16-2024 End: 07-16-2024 Follow-up encounter 07/16/2024 3:45 PM EDT Follow-Up [facility] [address] [place] [address] Sameera Gonzales MD [address] [place] [address] [facility] Start: 07-02-2024 End: 07-02-2024 Admission to same day surgery center [facility] Comment on above: Left hand cyst remov al Start: 07-02-2024 End: 07-02-2024 Exc lesion tdn shth/jt capsl hand/fngr [facility] Start: 07-02-2024 Subsequent hospital visit by physician [facility] Start: 06-25-2024 End: 06-25-2024 Patient encounter procedure 06/25/2024 3:15 PM EDT Surgical Consult [facility] [address] [place] [address] Sameera Gonzales MD [address] [place] [address] [facility] Start: 06-01-2024 End: 06-01-2024 Patient encounter procedure 06/01/2024 3:15 PM EDT Office Visit [facility] [address] [id number] Vania Gunter, MYLA [address] [place] [address] [facility] Start: 05-26-2024 History and physical examination, annual for health maintenance Wellness Visit [facility] Start: 05-21-2024 End: 05-21-2024 Patient encounter procedure 05/21/2024 1:00 PM EDT Office Visit [facility] [address] [place] [phone] Galilea Whitaker, [facility] [address] [place] [address] [facility] Start: 04-19-2024 Screening for malign ant neoplasm of colon Fecal occult blood test (FOBT,FIT) [facility] Start: 04-14-2024 End: 04-14-2024 Patient encounter procedure 04/14/2024 3:00 PM EST Office Visit [facility] [address] [place] [phone] Richard Robbins MD [address] [address] [facility] Start: 04-05-2024 End: 04-05-2024 Patient encounter procedure 04/05/2024 3:00 PM EST Office Visit [facility] [address] [place] [address] Vania Gunter, MYLA [address] [place] [address] [facility] Start: 03-25-2024 End: 03-25-2024 Patient encounter procedure 03/25/2024 2:15 PM EST Office Visit [facility] [address] [place] [address] Richard Robbins MD [address] [address] [facility] Start: 02-16-2024 Patient discharge [facility] Start: 02-14-2024 Ambulation without limitation [facility] Start: 02-14-2024 Assessment of risk o f venous thromboembolism [facility] Start: 02-14-2024 Incentive spirometry [facility] Start: 02-14-2024 Insertion of cathete r into peripheral vein [facility] Start: 02-14-2024 Measuring intake and output [facility] Start: 02-14-2024 Providing care accor ding to standard [facility] Start: 02-14-2024 Referral to accounts payable representative [facility] Start: 02-14-2024 Referral to service [facility] Start: 02-14-2024 [facility] Start: 02-14-2024 Following clinical pathway protocol [facility] Start: 02-14-2024 Admission procedure [facility] Start: 02-14-2024 Patient referral to dietitian [facility] Start: 11-24-2023 Administration of he rpes zoster vaccine Zoster Vaccines (1 of 2) [facility] Start: 11-24-2023 Pneumococcal Vaccine : 50+ (1 of 1 - PCV) Pneumococcal Vaccine: 50+ (1 of 1 - PCV) [facility] Start: 11-24-2023 Pneumococcal Vaccine : Age 50+ (1 of 1 - PCV) Pneumococcal Vaccine: Age 50+ (1 of 1 - PCV) [facility] Start: 11-24-2023 Screening for malign ant neoplasm of colon Flexible sigmoidoscopy [facility] Start: 11-24-2023 Shingrix Vaccine (1 of 2) Driscoll grix Vaccine (1 of 2) [facility] Start: 11-21-2023 End: 11-21-2023 Patient encounter procedure 11/21/2023 1:00 PM EDT Office Visit [facility] [address] [place] [address] Galilea Whitaker, CASEWORKER [address] [place] [address] [facility] Start: 11-20-2023 COVID-19 Vaccine ( season) COVID-19 Vaccine () [facility] Comment on above: Postponed from 10/11 (Patient Refused) Start: 10-12-2023 Covid-19 Vaccine () Covid-19 Vaccine () [facility] Start: 10-12-2023 COVID-19 Vaccine () COVID-19 Vaccine () [facility] Start: 10-12-2023 Influenza vaccination Influenza Vacc ine (#1) [facility] Start: 05-27-2023 End: 05-27-2023 Patient encounter procedure 05/27/2023 10:00 AM EDT Office Visit [facility] [address] [place] [address] Galilea Whitaker, CASEWORKER [address] [place] [address] [facility] Start: 05-22-2023 COVID-19 Vaccine (3 - Booster for Pfizer series) COVID-19 Vaccine (3 - Booster for Pfizer series) [facility] Comment on above: Postponed from 07/31 (Patient Refused) Start: 05-22-2023 COVID-19 Vaccine (3 - Pfizer series) COVID-19 Vaccine (3 - Pfizer series) [facility] Comment on above: Postponed from 07/31 (Patient Refused) Start: 05-22-2023 History and physical examination, annual for health maintenance Wellness Visit [facility] Start: 04-20-2023 [facility] Start: 01-30-2023 End: 01-30-2023 Patient encounter procedure 01/30/2023 2:00 PM EST Office Visit [facility] [address] [place] [address] Richard Robbins MD [address] [address] [facility] Start: 12-28-2022 Screening for malign ant neoplasm of breast Mammogram [facility] Start: 12-14-2022 Screening for malign ant neoplasm of cervix Pap Smear [facility] Start: 11-19-2022 End: 11-19-2022 Patient encounter procedure 11/19/2022 11:00 AM EDT Office Visit [facility] [address] [place] [address] Galilea Whitaker, [facility] [address] [place] [address] [facility] Start: 11-05-2022 End: 11-05-2022 Patient encounter procedure [facility] Start: 10-11-2022 Covid-19 Vaccine ( season) Covid-19 Vaccine () [facility] Start: 10-11-2022 Influenza vaccination Influenza Vacc ine (#1) [facility] Start: 10-01-2022 End: 10-01-2022 Patient encounter procedure 10/01/2022 12:30 PM EDT Appointment [facility] [address] [place] [id number] [facility] Start: 08-01-2022 Adult depression screening assessment DEPRESSION SCREENING [facility] Start: 05-15-2022 COVID-19 Vaccine (3 - Booster for Pfizer series) COVID-19 Vaccine (3 - Booster for Pfizer series) [facility] Comment on above: Postponed from 11/05 (Patient Refused) Start: 05-15-2022 History and physical examination, annual for health maintenance Wellness Visit [facility] Start: 02-10-2022 DEPRESSION ASSESSMENT DEPRESSION ASS ESSMENT [facility] Start: 12-22-2021 Screening for malign ant neoplasm of breast Mammogram [facility] Start: 11-20-2021 End: 11-20-2021 Patient encounter procedure 11/20/2021 Office Visit Primary Care Galilea Whitaker, CASEWORKER [address] [place] [address] [facility] Start: 10-11-2021 Influenza vaccination C [facility] Start: 08-06-2021 Source specific culture [facility] Work Phone: Start: 08-02-2021 End: 10-02-2021 TOX SCREEN ROUT UR TOX SCREEN ROUT UR Lab Routine Dream enactment behavior Expected: 08/02/2021, Expires: 10/02/2021 [facility] Work Phone: Comment on above: Expected: 08/02/2021 , Expires: 10/02/2021 Start: 06-27-2021 Cytopathology proced ure, preparation of smear, genital source PAP SMEAR [facility] Work Phone: Start: 06-27-2021 Screening for malign ant neoplasm of cervix PAP SMEAR [facility] Start: 05-15-2021 End: 05-15-2021 Patient encounter procedure 05/15/2021 Office Visit Primary Care Galilea Whitaker, CASEWORKER [address] [place] [address] [facility] Start: 04-14-2021 History and physical examination, annual for health maintenance Wellness Visit [facility] Start: 02-10-2021 [facility] Start: 12-14-2020 History and physical examination, annual for health maintenance Wellness Visit [facility] Start: 11-05-2020 COVID-19 VACCINE (3 - Booster for Pfizer series) COVID-19 VACCINE (3 - Booster for Pfizer series) [facility] Start: 10-17-2020 End: 10-17-[address] [facility] Start: 10-11-2020 Influenza vaccination INFLUENZA (#1) [facility] Start: 07-31-2020 COVID-19 VACCINE (3 - Booster for Pfizer series) COVID-19 VACCINE (3 - Booster for Pfizer series) [facility] Start: 04-14-2020 End: 04-14-2020 Office Visit 04/14/2020 Office Visit Primary Care Galilea Whitaker, CASEWORKER [address] [place] [address] [phone] [facility] Start: 03-26-2020 Screening for malign ant neoplasm of breast [facility] Start: 03-26-2020 Screening mammography [facility] Start: 02-27-2020 History and physical examination, annual for health maintenance Wellness Visit [facility] Start: 09-24-2019 End: 09-24-2019 Office Visit 09/24/2019 Office Visit Primary Care Galilea Whitaker, CASEWORKER [address] [place] [address] [phone] [facility] Start: 08-05-2019 End: 08-05-2019 Office Visit [facility] Start: 05-28-2019 End: 05-28-2019 Office Visit 05/28/2019 Office Visit Primary Care Galilea Whitaker, CASEWORKER [address] [place] [address] [phone] [facility] Start: 02-26-2019 End: 02-26-2019 Office Visit 02/26/2019 Office Visit Primary Care Galilea Whitaker, CASEWORKER [address] [place] [address] [phone] [facility] Start: 02-20-2019 Screening mammography M[facility]ogram [facility] Start: 11-25-2018 End: 11-25-2018 Office Visit 11/25/2018 Office Visit Primary Care Chery Saez, DO [address] [place] [address] [phone] [facility] Start: 2018 COLOGUARD (FIT-DNA) COLOGUARD (FIT-D NA) [facility] Start: 2018 Colonoscopy COLONOSCOPY [facility] Start: 2018 COLORECTAL CANCER SCREENING COLORECTAL CANCER SCREENING [facility] Start: [address] COLONOGRAPHY [facility] Start: 2018 DIABETES SCREEN DIABETES SCREEN [facility] Start: 2018 FECAL OCCULT BLOOD FECAL OCCULT BLOO D [facility] Start: 2018 LIPID SCREEN LIPID SCREEN [facility] Start: 2018 Screening for malign ant neoplasm of colon [facility] Start: 2018 SIGMOIDOSCOPY SIGMOIDOSCOPY [facility] Start: 04-10-2018 Adult depression screening assessment DEPRESSION SCREENING (PHQ9) [facility] Start: 04-10-2018 Depression screening using PHQ-9 (Patient Health Questionnaire 9) score DEPRESSION SCREENING (PHQ9) [facility] Start: 04-10-2018 History and physical examination, annual for health maintenance Wellness Visit [facility] Start: 04-10-2018 Screening for substa nce abuse SUBSTANCE ABUSE SCREENING (AUDIT-C) [facility] Start: 04-10-2018 SUBSTANCE ABUSE SCRE ENING (AUDIT-C) SUBSTANCE ABUSE SCREENING (AUDIT-C) [facility] Start: 01-15-2018 End: 01-15-2018 Ambulatory 01/15/2018 Office Visit Primary Care Galilea Whitaker, CASEWORKER [address] [facility] Start: 10-14-2017 Ambulatory 10/14/2017 Off ice Visit Primary Care Galilea Whitaker, CASEWORKER [address] [place] [address] [facility] Start: 05-05-2017 Ambulatory 05/05/2017 Roger ointment Radiology Roseanna Meehan, [address] [place] [place] [address] [phone] [facility] Start: 04-10-2017 Ambulatory 04/10/2017 Off ice Visit Primary Care Galilea Whitaker, CASEWORKER [address] [address] [phone] [facility] Start: 2013 Mammography [facility] Start: 2013 Screening for malign ant neoplasm of breast Mammogram Screening [facility] [facility] Start: 11-24-2003 HPV TESTING HPV TESTING [facility] Start: 1994 PAP TESTING PAP TESTING [facility] Start: 1994 Screening for malign ant neoplasm of cervix Cervical Cancer Screening [facility] Start: 1992 Hepatitis B Vaccine (1 of 3 - 19+ 3-dose series) Hepatitis B Vaccine (1 of 3 - 19+ 3-dose series) [facility] Start: 1992 Urine microalbumin profile DTAP,TDAP,TD (1 - Tdap) [facility] Start: 11-24-1991 ANNUAL PCP TEAM COLOR MAKING [employer]PER[employer] [place] DISEASE VISIT ANNUAL PCP TEAM CHRONIC DISEASE VISIT [facility] Start: 11-24-1991 Anxiety Screening Anxiety Screening [facility] Start: 11-24-1991 BP CONTROLLED (<130/80) BP CONTROLLE D (<130/80) [facility] Start: 11-24-1991 Depression Screening Depression Scre ening [facility] Start: 11-24-1991 HEPATITIS C SCREENING HEPATITIS C [facility] Start: 11-24-1991 Hepatitis C screening Hepatitis C [facility] Start: 11-24-1991 HIV SCREENING HIV SCREENING [facility] Start: 11-24-1991 HIV screening HIV Screening [facility] Start: 1989 COVID-19 Vaccine (1 of 2) COVI D-19 Vaccine (1 of 2) [facility] Start: 1989 COVID-19 Vaccine (1) COVID-19 Vaccin e (1) [facility] Start: 1985 Adult depression screening assessment DEPRESSION SCREENING [facility] Start: 1985 COVID-19 Vaccine (1) COVID-19 Vaccin e (1) [facility] Start: 11-24-1983 Ophthalmic examinati on and evaluation OPHTHALMOLOGY EXAM [facility] Start: 1973 Depression screening using PHQ-9 (Patient Health Questionnaire 9) score DEPRESSION SCREENING (PHQ9) [facility] Start: 1973 HEPATITIS B (1 of 3 - 3-dose series) HEPATITIS B (1 of 3 - 3-dose series) [facility] Start: 1973 Hepatitis B Vaccine (1 of 3 - 3-dose series) Hepatitis B Vaccine (1 of 3 - 3-dose series) [facility] Start: 1973 Screening for malign ant neoplasm of colon [facility] ACTIGRAPHY TESTING ACTIGRAPHY TE STING Procedures Routine Dream enactment behavior 1 Occurrences starting 08/02/2021 [facility] Work Phone: Comment on above: 1 Occurrences starti ng 08/02/2021 End: 11-20-2023 ANGEL measurement ANGEL Lab Routine Fatigue, unspecified type Generalized hypermobility of joints 1 Occurrences starting 11/19/2022 until 11/20/[address] [facility] Work Phone: Comment on above: 1 Occurrences starti ng 11/19/2022 until 11/20/2023 ANGEL measurement ANGEL Lab Routine Fatigue, unspecified type Generalized hypermobility of joints 11/19/2022 11:[address] [facility] End: 04-06-2025 Bacteria identified in Unspecified specimen by Aerobe culture Urine Aerobic Culture Microbiology Routine Urinary frequency 1 Occurrences starting 04/05/2024 until 04/06/[address] [facility] Comment on above: 1 Occurrences starti ng 04/05/2024 until 04/06/2025 End: 02-16-2025 Basic metabolic 2000 panel - Serum or Plasma Basic Metabolic Panel Lab Routine GOPAL (acute kidney injury) 1 Occurrences starting 02/17/2024 until 02/16/[address] [facility] Comment on above: 1 Occurrences starti ng 02/17/2024 until 02/16/2025 End: 10-02-2019 Cobalamin (Vitamin B12) [Mass/Vol] Vitamin B12 Lab Routine Malaise and fatigue 1 Occurrences starting 10/01/2018 until 10/02/[address] [facility] Comment on above: 1 Occurrences starti ng 10/01/2018 until 10/02/2019 Cobalamin (Vitamin B 12) [Mass/Vol] Vitamin B12 Lab Routine Malaise and fatigue 10/01/2018 9:[address] [facility] End: 05-22-2025 Cobalamin (Vitamin B12) [Mass/volume] in Serum or Plasma Vitamin B12 Lab Routine Vitamin B12 deficiency 1 Occurrences starting 05/21/2024 until 05/22/[address] [facility] Comment on above: 1 Occurrences starti ng 05/21/2024 until 05/22/2025 End: 10-02-2019 Complete blood count with white cell differential, manual CBC and Differential Lab Routine Malaise and fatigue 1 Occurrences starting 10/01/2018 until 10/02/[address] [facility] Comment on above: 1 Occurrences starti ng 10/01/2018 until 10/02/2019 Complete blood count with white cell differential, manual CBC and Differential Lab Routine Malaise and fatigue 10/01/2018 9:[address] [facility] End: 11-20-2023 Complete blood count with white cell differential, manual CBC and Differential Lab Routine Essential hypertension 1 Occurrences starting 11/19/2022 until 11/20/[address] [facility] Comment on above: 1 Occurrences starti ng 11/19/2022 until 11/20/2023 Complete blood count with white cell differential, manual CBC and Differential Lab Routine Essential hypertension 11/19/2022 11:46 AM [facility] End: 11-21-2024 Complete blood count with white cell differential, manual CBC and Differential Lab Routine Essential hypertension 1 Occurrences starting 11/21/2023 until 11/21/[address] [facility] Work Phone: Comment on above: 1 Occurrences starti ng 11/21/2023 until 11/21/2024 Complete blood count with white cell differential, manual CBC and Differential Lab Routine Essential hypertension 11/21/2023 1:32 PM [facility] End: 05-22-2025 Complete blood count with white cell differential, manual CBC and Differential Lab Routine Annual physical exam 1 Occurrences starting 05/21/2024 until 05/22/[address] [facility] Work Phone: Comment on above: 1 Occurrences starti ng 05/21/2024 until 05/22/2025 End: 10-02-2019 Comprehensive metabolic 2000 panel Comprehensive Metabolic Panel Lab Routine Malaise and fatigue 1 Occurrences starting 10/01/2018 until 10/02/[address] [facility] Comment on above: 1 Occurrences starti ng 10/01/2018 until 10/02/2019 Comprehensive metabo lic 2000 panel Comprehensive Metabolic Panel Lab Routine Malaise and fatigue 10/01/2018 9:40 AM [facility] End: 11-20-2023 Comprehensive metabolic 2000 panel - Serum or Plasma Comprehensive Metabolic Panel Lab Routine Essential hypertension 1 Occurrences starting 11/19/2022 until 11/20/[address] [facility] Comment on above: 1 Occurrences starti ng 11/19/2022 until 11/20/2023 Comprehensive metabo lic 2000 panel - Serum or Plasma Comprehensive Metabolic Panel Lab Routine Essential hypertension 11/19/2022 11:[address] [facility] End: 11-21-2024 Comprehensive metabolic 2000 panel - Serum or Plasma Comprehensive Metabolic Panel Lab Routine Essential hypertension 1 Occurrences starting 11/21/2023 until 11/21/[address] [facility] Comment on above: 1 Occurrences starti ng 11/21/2023 until 11/21/2024 Comprehensive metabo lic 2000 panel - Serum or Plasma Comprehensive Metabolic Panel Lab Routine Essential hypertension 11/21/2023 1:32 PM [facility] End: 04-06-2025 Comprehensive metabolic 2000 panel - Serum or Plasma Comprehensive Metabolic Panel Lab Routine GOPAL (acute kidney injury) 1 Occurrences starting 04/05/2024 until 04/06/[address] [facility] Work Phone: Comment on above: 1 Occurrences starti ng 04/05/2024 until 04/06/2025 End: 05-22-2025 Comprehensive metabolic 2000 panel - Serum or Plasma Comprehensive Metabolic Panel Lab Routine Annual physical exam 1 Occurrences starting 05/21/2024 until 05/22/[address] [facility] Comment on above: 1 Occurrences starti ng 05/21/2024 until 05/22/2025 End: 11-05-2025 Creatinine [Mass/time] in 24 hour Urine Creatinine, Urine, 24 Hour Lab Routine GOPAL (acute kidney injury) 1 Occurrences starting 11/05/2024 until 11/05/[address] [facility] Work Phone: Comment on above: 1 Occurrences starti ng 11/05/2024 until 11/05/2025 Cytopathology proced ure, preparation of smear, genital source Genital Culture [facility] Work Phone: End: 11-20-2023 Erythrocyte sedimentation rate Sedimentation Rate Lab Routine Fatigue, unspecified type Generalized hypermobility of joints 1 Occurrences starting 11/19/2022 until 11/20/[address] [facility] Comment on above: 1 Occurrences starti ng 11/19/2022 until 11/20/2023 Erythrocyte sediment ation rate Sedimentation Rate Lab Routine Fatigue, unspecified type Generalized hypermobility of joints 11/19/2022 11:[address] [facility] Exc lesion tdn shth/ jt capsl hand/fngr GANGLIONECTOMY UPPER EXTREMITY Epidermoid cyst of hand [facility] End: 11-20-2023 Ferritin [Mass/volume] in Serum or Plasma Ferritin Lab Routine Fatigue, unspecified type 1 Occurrences starting 11/19/2022 until 11/20/[address] [facility] Comment on above: 1 Occurrences starti ng 11/19/2022 until 11/20/2023 Ferritin [Mass/volum e] in Serum or Plasma Ferritin Lab Routine Fatigue, unspecified type 11/19/2022 11:[address] [facility] End: 04-05-2025 Hemoglobin A1c/Hemoglobin.total in Blood Hemoglobin A1c Lab Routine Urinary frequency 1 Occurrences starting 04/05/2024 until 04/05/[address] [facility] Comment on above: 1 Occurrences starti ng 04/05/2024 until 04/05/2025 End: 11-20-2023 Iron and Iron binding capacity panel - Serum or Plasma Iron and TIBC Lab Routine Fatigue, unspecified type 1 Occurrences starting 11/19/2022 until 11/20/[address] [facility] Comment on above: 1 Occurrences starti ng 11/19/2022 until 11/20/2023 Iron and Iron bindin g capacity panel - Serum or Plasma Iron and TIBC Lab Routine Fatigue, unspecified type 11/19/2022 11:[address] [facility] End: 11-20-2024 Iron measurement Iron Study with Ferritin Lab Routine Essential hypertension 1 Occurrences starting 11/21/2023 until 11/20/[address] [facility] Comment on above: 1 Occurrences starti ng 11/21/2023 until 11/20/2024 Iron measurement Iron Study with Ferritin Lab Routine Essential hypertension 11/21/2023 1:[address] [facility] End: 05-22-2025 Lipid 1996 panel - Serum or Plasma Lipid Panel Lab Routine Annual physical exam 1 Occurrences starting 05/21/2024 until 05/22/[address] [facility] Comment on above: 1 Occurrences starti ng 05/21/2024 until 05/22/2025 End: 11-05-2025 Measurement of thyroperoxidase antibody Thyroid peroxidase antibody (TPO) Lab Routine Weight gain 1 Occurrences starting 11/05/2024 until 11/05/[address] [facility] Comment on above: 1 Occurrences starti ng 11/05/2024 until 11/05/2025 End: 02-16-2025 Microalbumin measurement, urine, quantitative Microalbumin/Creatinine Ratio, UR Random Lab Routine GOPAL (acute kidney injury) 1 Occurrences starting 02/17/2024 until 02/16/[address] [facility] Comment on above: 1 Occurrences starti ng 02/17/2024 until 02/16/2025 End: 10-03-2024 MR Hand - left WO contrast MR Hand Left Without Contrast Imaging Routine Ganglion cyst 1 Occurrences starting 04/05/2024 until 10/03/[address] [facility] Work Phone: Comment on above: 1 Occurrences starti ng 04/05/2024 until 10/03/2024 End: 08-02-2022 MULTIPLE SLEEP LATENCY TEST MULTIPLE SLEEP LATENCY TEST Procedures Routine Dream enactment behavior 1 Occurrences starting 08/02/2021 until 08/02/2022 [facility] Work Phone: Comment on above: 1 Occurrences starti ng 08/02/2021 until 08/02/2022 Patient Education ED Vomiting (A dult) ED Epigastric Pain Uncertain Cause [facility] Work Phone: Patient referral [facility] Work Phone: End: 08-02-2022 PSG WITH EEG (DOUBLE STUDY) PSG WITH EEG (DOUBLE STUDY) Procedures Routine Dream enactment behavior 1 Occurrences starting 08/02/2021 until 08/02/2022 [facility] Work Phone: Comment on above: 1 Occurrences starti ng 08/02/2021 until 08/02/2022 End: 02-16-2025 Renal function 2000 panel - Serum or Plasma Renal Function Panel Lab Routine GOPAL (acute kidney injury) 1 Occurrences starting 02/17/2024 until 02/16/[address] [facility] Work Phone: Comment on above: 1 Occurrences starti ng 02/17/2024 until 02/16/2025 End: 11-20-2023 Rheumatoid factor, quantitative Rheumatoid factor Lab Routine Fatigue, unspecified type Generalized hypermobility of joints 1 Occurrences starting 11/19/2022 until 11/20/[address] [facility] Comment on above: 1 Occurrences starti ng 11/19/2022 until 11/20/2023 Rheumatoid factor, quantitative Rheumatoid factor Lab Routine Fatigue, unspecified type Generalized hypermobility of joints 11/19/2022 11:[address] [facility] End: 11-19-2023 Thyrotropin [Units/volume] in Serum or Plasma TSH with Reflex Free T4 Lab Routine Fatigue, unspecified type 1 Occurrences starting 11/19/2022 until 11/19/[address] [facility] Comment on above: 1 Occurrences starti ng 11/19/2022 until 11/19/2023 Thyrotropin [Units/volume] in Serum or Plasma TSH with Reflex Free T4 Lab Routine Fatigue, unspecified type 11/19/2022 11:46 AM [facility] End: 11-06-2025 Thyrotropin [Units/volume] in Serum or Plasma TSH Lab Routine Weight gain 1 Occurrences starting 11/05/2024 until 11/06/[address] [facility] Comment on above: 1 Occurrences starti ng 11/05/2024 until 11/06/2025 End: 11-06-2025 Thyroxine (T4) free [Mass/volume] in Serum or Plasma T4, Free Lab Routine Weight gain 1 Occurrences starting 11/05/2024 until 11/06/[address] [facility] Comment on above: 1 Occurrences starti ng 11/05/2024 until 11/06/2025 End: 11-05-2025 Triiodothyronine (T3) Free [Mass/volume] in Serum or Plasma T3, Free Lab Routine Weight gain 1 Occurrences starting 11/05/2024 until 11/05/[address] [facility] Comment on above: 1 Occurrences starti ng 11/05/2024 until 11/05/2025 End: 10-02-2019 TSH Qn TSH with Reflex Free T4 Lab Routine Malaise and fatigue 1 Occurrences starting 10/01/2018 until 10/02/[address] [facility] Comment on above: 1 Occurrences starti ng 10/01/2018 until 10/02/2019 TSH Qn TSH with Reflex Free T4 Lab Routine Malaise and fatigue 10/01/2018 9:[address] [facility] End: 08-15-2024 Ultrasonography of abdomen US Abdomen Complete Imaging Routine Generalized abdominal pain 1 Occurrences starting 09/24/2022 until 09/25/[address] [facility] Work Phone: Comment on above: 1 Occurrences starti ng 09/24/2022 until 09/25/2023 End: 04-05-2025 Urinalysis Urinalysis with microscopic Lab Routine GOPAL (acute kidney injury) 1 Occurrences starting 04/05/2024 until 04/05/[address] [facility] Comment on above: 1 Occurrences starti ng 04/05/2024 until 04/05/2025 End: 01-27-2020 US angiography of renal artery Ultrasound renal artery duplex, complete Vascular Ultrasound Routine Essential hypertension 1 Occurrences starting 11/26/2018 until 01/27/[address] [facility] Comment on above: 1 Occurrences starti ng 11/26/2018 until 01/27/2020 US angiography of re nal artery Ultrasound renal artery duplex, complete Vascular Ultrasound Routine Essential hypertension 02/25/2019 10:[address] [facility] Vitamin D, 25-hydrox y measurement [facility] End: 05-22-2025 Vitamin D, 25-hydroxy measurement Vitamin D, Total, 25-OH Lab Routine Vitamin D deficiency 1 Occurrences starting 05/21/2024 until 05/22/[address] [facility] Comment on above: 1 Occurrences starti ng 05/21/2024 until 05/22/2025 XR Forearm Right 2 Views XR Fore arm Right 2 Views [id number] Forearm injury, right, initial encounter 11/06/2017 10:[address] [facility] End: 05-15-2022 XR Hip Left With Pelvis 2-3 Views (Routine) XR Hip Left With Pelvis 2-3 Views (Routine) Imaging Routine Left hip pain 1 Occurrences starting 05/15/2021 until 05/15/[address] [facility] Work Phone: Comment on above: 1 Occurrences starti ng 05/15/2021 until 05/15/2022 XR Hip Left With Pel vis 2-3 Views (Routine) XR Hip Left With Pelvis 2-3 Views (Routine) Imaging Routine Left hip pain 05/15/2021 9:51 AM EDT [facility] Immunizations Immunization Date Immunization Notes Care Provider Fa fatou 04-07-2022 tetanus toxoid, reduced diphtheria toxoid, and acellular pertussis vaccine, adsorbed GALILEA SHERMAN [facility] 06-05-2020 Covid (Pfizer) No Primary Ca re Physician [facility] 05-12-2020 Covid (Pfizer) No Primary Ca re Physician [facility] 04-05-2015 tetanus toxoid, reduced diphtheria toxoid, and acellular pertussis vaccine, adsorbed; Translations: [TDAP] Galilea Whitaker [facility] Work Phone: Payers Date Payer Category Payer Self-pay [id number] 2023 Blue Cross Blue Shield BLUE ACCE SS PPO [id number] 2023 [place] Blue Shie ld (Indemnity or Managed Care) - Out of State BCBS OUT OF STATE [facility] [id number] 2023 Unknown [id number] 2020 Private Health Insurance [facility] [id number] 2020-Present [phone] [address] [address] [place] [address] PPO [id number] 2018 Private Health Insurance [employer] A ETNA CHOICE POS/POSII/PREMIER CARE/PREMIER CARE PLUS xxxxxxxxxx 2018-Present xxxxxxxxxx [id number] 2018 Unknown MMO MED MUTUAL S UPERMED PPO xxxxxxxx 2018-Present xxxxxxxx [id number] 2018 Unknown [id number] [id number] .2.7.3.921628.315 2018 Unknown [id number] 1.13.385 .2.7.3.495657.315 2018 Unknown [id number] 2018 Private Health Insurance [id number] 2014 Worker's Compensation [id number] 2014 Worker's Compensation [employer] [facility] [id number] .[id number] 2014 Unknown xxxxxxxxx 2.16.840.1.116927.3.249 .13 2014 Unknown [id number] 2.16.840.1.998917.3.249 .13 1973 Unknown [id number] 2.16.840.1.034694.3.579 .2.900 1973 Unknown [id number] 2.16.840.1.224289.3.579 .2.900 1973 Unknown [id number] 2.16.840.1.125317.3.579 .2.900 1973 Unknown [id number] 2.16.840.1.316559.3.579 .2.903 1973 Unknown [id number] 2.16.840.1.239691.3.579 .2.902 1973 Unknown [id number] 2.16.840.1.723103.3.579 .2.902 1973 Unknown [id number] 2.16.840.1.156704.3.579 .2.903 1973 Unknown [id number] 2.16.840.1.677428.3.579 .2.903 1973 Unknown [id number] 2.16.840.1.174298.3.579 .2.903 1973 Unknown [id number] 2.16.840.1.752419.3.579 .2.903 1973 Unknown [id number] 2.16.840.1.203555.3.579 .2.903 1973 Unknown [id number] 2.16.840.1.245380.3.579 .2.903 1973 Unknown [id number] 2.16.840.1.577840.3.579 .2.903 1973 Unknown [id number] 2.16.840.1.673095.3.579 .2.903 1973 Unknown [id number] 2.16.840.1.954689.3.579 .2.903 1973 Unknown [id number] 2..840.1.569705.3.579 .2.903 1973 Unknown [id number] 2.16.840.1.928727.3.579 .2.903 1973 Unknown [id number] 2.16.840.1.076272.3.579 .2.903 Unknown [id number] 2.16.840.1.598772.3.579 .2.462 Unknown [id number] 2..840.1.857395.3.579 .2.462 Unknown [id number] 2.840.1.399938.3.579 .2.462 Unknown [id number] 2.840.1.305978.3.579 .2.462 Unknown [id number] 2..840.1.404013.3.579 .2.462 Unknown [id number] 2.16.840.1.898817.3.579 .2.462 Unknown [id number] 2.16.840.1.377228.3.579 .2.462 Unknown [id number] 2.16.840.1.866979.3.579 .2.462 Unknown [id number] 2.840.1.918697.3.579 .2.462 Unknown [id number] 2.16.840.1.973708.3.579 .2.462 Unknown [id number] 2.16.840.1.768809.3.579 .2.462 Unknown [id number] 2.16.840.1.116259.3.579 .2.462 Unknown [id number] 2.16.840.1.265638.3.579 .2.462 Unknown [id number] 2..840.1.637480.3.579 .2.462 Social History Date Type Detail Facility Start: 05-05-2017 End: 11-29-2024 Tobacco smoking status NHIS Never smoker [facility] Start: 1975 Sex Assigned At Not on file [facility] Work Phone: Start: 04-22-2014 Alcohol Comment [facility] Start: 10-01-2018 End: 11-05-2024 Alcohol intake [facility] Start: 10-01-2018 End: 05-15-2021 History SDOH Food Worry 1 [facility] Start: 02-26-2019 End: 05-15-2021 History SDOH Alcohol Frequency [address] [facility] Start: 03-10-2021 End: 05-21-2022 Exposure to SARS-CoV-2 (event) Not sure [facility] Start: 10-19-2019 End: 11-26-2021 Tobacco use and exposure [facility] Start: 04-14-2020 History SDOH Alcohol Frequency 4 [facility] Start: 04-09-2021 History SDOH Alcohol Comment social [facility] Start: 05-15-2021 History SDOH Social Connections Membership [address] [facility] Start: 08-06-2021 End: 04-20-2023 Tobacco smoking status MEIS Unknown if ever smoked [facility] Start: 08-06-2021 Non-smoker [facility] Start: 1975 Sex Assigned At Female W [facility] Start: 05-15-2021 End: 11-19-2022 History of Social function [facility] Start: 05-15-2021 End: 11-19-2022 Social connection and isolation panel [facility] Frequency of Communication with Friends and Family Not on file [facility] Do you belong to any clubs or organizations such as temple groups, unions, fraternal or athletic groups, or school groups? No [facility] How often to you hav e a drink containing alcohol? 2-3 time sa week [facility] How many standard drinks containing alcohol do you have on a typical day? 1 or 2 [facility] (I/We) worried whelouie er (my/our) food would run out before (I/we) got money to buy more. Never true [facility] Start: 10-14-2017 Gender identity Identifies as female gender (finding) [facility] Start: 10-14-2017 Sexual orientation Heterosexual (ross song) [facility] Are you now , , , , never or living with a partner? [facility] How often do you hav e 6 or more drinks on 1 occasion? Never [facility] How hard is it for y ou to pay for the very basics like food, housing, medical care, and heating Not very hard [facility] Do you feel stress - tense, restless, nervous, or anxious, or unable to sleep at night because your mind is troubled all the time - these days [OSQ] Not at all [facility] Start: 05-18-2024 Sex Female (finding) [facility] NEGATED: Highlighted row [facility] Goals Date Patient Goal Desired Activity /State Personal health goal Comment on above: Formatting of this n ote might be different from the original. Pt stated she would like to weigh between 155-160 pounds. Pt declined setting specific goals to reach this weight loss at time of RD visit. Comment on above: Pt stated she would like to weigh between 155-160 pounds. Pt declined setting specific goals to reach this weight loss at time of RD visit. Pt stated she would like to weigh between 155-160 pounds. Pt declined setting specific goals to reach this weight loss at time of RD visit. Formatting of this n ote might be different from the original. Pt stated she would like to weigh between 155-160 pounds. Pt declined setting specific goals to reach this weight loss at time of RD visit. Functional Status Date Assessment Result Facility 02-16-2024 Functional status Ambulates;Up ad liliana [facility] Work Phone: Mental Status Date Assessment Result Facility 02-16-2024 Cognitive function Voice/Name [facility] Work Phone: 04-07-2022 Cognitive function Level Of Cons ciousness Awake;Alert;Appropriate;Follow s Commands [facility] Work Phone: Clinical Notes 10-09-2020 to 11-29-2024 Galilea Whitaker, [facility] - 11/05/2024 11:40 AM EDT Note Date & Type Note Facility 11-29-2024 Progress note [facility] 11-05-2024 Note Subjective: Patient ID: Teresa Cash is a 48 y.o. female. HPI Teresa presents today for chronic disease management Relates that she just isn't feeling well. She states that she knows her labs are all coming up normal, but she still feels something wrong since she had GOPAL. She states not sleeping well- getting up every 1-2 hours to urinate. States that she has tried cutting liquids and no change. Relates bilateral dull flank pain but right is more painful. She has not contacted nephro because they told her with normal labs, no need for f/u Relates that she is nauseated all the time and she is incredibly constipated- going a week without bm. Not seeing any benefit from miralax. She states that sometimes she will have small pellets with BMs. She actually made an appt with [facility] in November. She states polydipsia Relates she typically see's [employer] in Nov/Dec States that overall she has no energy She also feels like she has gained a lot of weight. She did lose a lot of weight because she couldn't eat- then when she started being able to eat again she was very free with eating, but has been more careful and still feels like she is gaining. She states that she has pain after eating every time- sometimes so bad they almost go to the ER. She has not taken her BP meds yet because she hasn't eaten yet. Past Medical History: Diagnosis Date Anemia Arrhythmia as a child Arthritis Asthma Bursitis L shoulder Cancer (HCC) mom, father, maternal aunt, paternal grandmother Closed dislocation, multiple and ill-defined sites Disease of thyroid gland mother Fractures Ganglion cyst GERD (gastroesophageal reflux disease) Heart murmur as a child, and pvc as adult Hypertension Injury of back ruptured L5/S1 in 1995 Irregular heart beat MDD (major depressive disorder) Migraine PVC (premature ventricular contraction) Scoliosis Stroke (HCC) maternal grandmother COD, brother x3 2018 Subluxation of patella Past Surgical History: Procedure Laterality Date ADENOIDECTOMY as an infant APPENDECTOMY CYST REMOVAL GANGLIONECTOMY UPPER EXTREMITY Left 07/02/2024 Procedure: Left hand cyst removal; Surgeon: Sameera Gonzales MD; Location: Main OR; Service: Orthopedic; Laterality: Left; HAND SURGERY KNEE SURGERY Right 03/25/2018 Dr. Comisar TONSILLECTOMY as an WRIST SURGERY 1997 R ganglion cyst Family History Problem Relation Age of Onset Cancer Mother bladder, pelvis Arrhythmia Mother Arthritis Mother Depression Mother Anesthesia problems Mother Cancer Father type unknown Alcohol abuse Father Early Father suicide Mental illness Father Arthritis Maternal Aunt Cancer Maternal Aunt Cancer appendix Dementia Paternal Aunt Stroke Maternal Grandmother stroke as COD Heart failure Maternal Grandmother Arthritis Maternal Grandmother Hearing loss Maternal Grandmother Cancer Paternal Grandmother Abdominal Hypertension Brother Uncontrolled Stroke Brother X3 in 2018 Cancer Other Hypertension Other Seizures Other Stroke Other Breast cancer Neg Hx Allergies[1] Social History[2] Current Medications[3] BP (!) 158/94 (BP Location: Left arm, Patient Position: Sitting, BP Cuff Size: Adult) Pulse 65 Temp 98.2 degrees F (36.8 degrees C) Wt 78 kg (172 lb) SpO2 96% BMI 26.15 kg/m Review of Systems Constitutional: Positive for fatigue. Negative for appetite change, chills, fever and unexpected weight change. HENT: Negative for trouble swallowing. Eyes: Negative. Negative for visual disturbance. Respiratory: Negative for cough and shortness of breath. Cardiovascular: Negative for chest pain, palpitations and leg swelling. Gastrointestinal: Positive for abdominal distention, abdominal pain, constipation and nausea. Negative for blood in stool and diarrhea. Endocrine: Positive for polydipsia and polyuria. Negative for polyphagia. Genitourinary: Positive for flank pain, frequency and urgency. Negative for dysuria. Musculoskeletal: Negative for arthralgias, back pain, joint swelling and myalgias. Skin: Negative. Neurological: Negative for dizziness and headaches. Hematological: Negative. Psychiatric/Behavioral: Positive for [...] sounds. Abdominal: General: Bowel sounds are decreased. Palpations: Abdomen is soft. Tenderness (more content not included)... [facility] 11-05-2024 History of Present illness Narrative Subjective: Patient ID: Teresa Cash is a 48 y.o. female. HPI Teresa presents today for chronic disease management Relates that she just isn't feeling well. She states that she knows her labs are all coming up normal, but she still feels something wrong since she had GOPAL. She states not sleeping well- getting up every 1-2 hours to urinate. States that she has tried cutting liquids and no change. Relates bilateral dull flank pain but right is more painful. She has not contacted nephro because they told her with normal labs, no need for f/u Relates that she is nauseated all the time and she is incredibly constipated- going a week without bm. Not seeing any benefit from miralax. She states that sometimes she will have small pellets with BMs. She actually made an appt with [facility] in November. She states polydipsia Relates she typically see's [employer] in Nov/Dec States that overall she has no energy She also feels like she has gained a lot of weight. She did lose a lot of weight because she couldn't eat- then when she started being able to eat again she was very free with eating, but has been more careful and still feels like she is gaining. She states that she has pain after eating every time- sometimes so bad they almost go to the ER. She has not taken her BP meds yet because she hasn't eaten yet. Past Medical History: Diagnosis Date Anemia Arrhythmia as a child Arthritis Asthma Bursitis L shoulder Cancer (HCC) mom, father, maternal aunt, paternal grandmother Closed dislocation, multiple and ill-defined sites Disease of thyroid gland mother Fractures Ganglion cyst GERD (gastroesophageal reflux disease) Heart murmur as a child, and pvc as adult Hypertension Injury of back ruptured L5/S1 in 1995 Irregular heart beat MDD (major depressive disorder) Migraine PVC (premature ventricular contraction) Scoliosis Stroke (HCC) maternal grandmother COD, brother x3 2018 Subluxation of patella Past Surgical History: Procedure Laterality Date ADENOIDECTOMY as an infant APPENDECTOMY CYST REMOVAL GANGLIONECTOMY UPPER EXTREMITY Left 07/02/2024 Procedure: Left hand cyst removal; Surgeon: Sameera Gonzales MD; Location: Main OR; Service: Orthopedic; Laterality: Left; HAND SURGERY KNEE SURGERY Right 03/25/2018 Dr. Ramsay TONSILLECTOMY as an infant WRIST SURGERY 1997 R ganglion cyst Family History Problem Relation Age of Onset Cancer Mother bladder, pelvis Arrhythmia Mother Arthritis Mother Depression Mother Anesthesia problems Mother Cancer Father type unknown Alcohol abuse Father Early Father suicide Mental illness Father Arthritis Maternal Aunt Cancer Maternal Aunt Cancer appendix Dementia Paternal Aunt Stroke Maternal Grandmother stroke as COD Heart failure Maternal Grandmother Arthritis Maternal Grandmother Hearing loss Maternal Grandmother Cancer Paternal Grandmother Abdominal Hypertension Brother Uncontrolled Stroke Brother X3 in 2018 Cancer Other Hypertension Other Seizures Other Stroke Other Breast cancer Neg Hx Allergies[1] Social History[2] Current Medications[3] BP (!) 158/94 (BP Location: Left arm, Patient Position: Sitting, BP Cuff Size: Adult) Pulse 65 Temp 98.2 F (36.8 C) Wt 78 kg (172 lb) SpO2 96% BMI 26.15 kg/m Review of Systems Constitutional: Positive for fatigue. Negative for appetite change, chills, fever and unexpected weight change. HENT: Negative for trouble swallowing. Eyes: Negative. Negative for visual disturbance. Respiratory: Negative for cough and shortness of breath. Cardiovascular: Negative for chest pain, palpitations and leg swelling. Gastrointestinal: Positive for abdominal distention, abdominal pain, constipation and nausea. Negative for blood in stool and diarrhea. Endocrine: Positive for polydipsia and polyuria. Negative for polyphagia. Genitourinary: Positive for flank pain, frequency and urgency. Negative for dysuria. Musculoskeletal: Negative for arthralgias, back pain, joint swelling and myalgias. Skin: Negative. Neurological: Negative for dizziness and headaches. Hematological: Negative. Psychiatric/Behavioral: Positive for [...] sounds. Abdominal: General: Bowel sounds are decreased. Palpations: Abdomen is soft. Tenderness: There is abdominal tenderness in the suprapubic area. Musculoskeletal: Cervical back: Normal range of motion and neck supple. Right lower leg: No edema. Left lower leg: No edema. Skin: General: Skin is warm and dry. Neurological: Mental Status: She is alert and oriented to person, place, and time. Psychiatric: Mood and Affect: Mood normal. Behavior: Behavior normal. Assessment/Plan: Diagnoses and all orders for this visit: Essential hypertension Comments: No meds today. Home logs remain well controlled. Will continue current regimen GOPAL (acute kidney injury) Comments: cleared by nephro but still having flank pain and urinary frequency. Recent imaging without concerns.Question if bowel concerns effecting urinary sx.24 hr creat Orders: - Creatinine, Urine, 24 Hour; Future Chronic constipation Comments: Worsening. Miralax ineffective. Seeing GI next month. Do question effect on urinary sx. Encouraged keeping diet journal and bringing to GI Bloating Comments: as above. defer to GI at this time- if no answers, will reach back out. Urinary frequency Comments: Recent urine sample benign. Recent CMP and A1c benign. as above- question GI source Weight gain Comments: Checking thyroid levels to assure not a concern. Orders: - TSH; Future - T4, Free; Future - T3, Free; Future - Thyroid peroxidase antibody (TPO); Future I am managing Teresa Morbitzer for complex chronic condition(s) serving as the focal point for the patient's care for consistency and continuity over time. [1] Allergies Allergen Reactions Apple Itching Erythromycin GI Intolerance Influenza Virus Vaccines GI Intolerance Maple Flavor Itching Pork Derived (Porcine) Itching Amoxicillin Rash Black Pepper Swelling and Rash Cephalexin Rash Clarithromycin Rash Garlic Swelling and Rash Penicillins Rash [2] Social History Socioeconomic History Marital status: Tobacco Use Smoking status: Never Smokeless tobacco: Never Vaping Use Vaping status: Never Used Substance and Sexual Activity Alcohol use: Yes Alcohol/week: 4.0 standard drinks of alcohol Types: 1 Glasses of wine, 3 Cans of beer per week Drug use: Never Sexual activity: Yes Partners: Male control/protection: None Social Drivers of Health Financial Resource Strain: Low Risk (11/19/2022) Overall Financial Resource Strain (CARDIA) Difficulty of Paying Living Expenses: Not very hard Food Insecurity: No Food Insecurity (11/21/2023) Hunger Vital Sign Worried About Running Out of Food in the Last Year: Never true Ran Out of Food in the Last Year: Never true Transportation Needs: No Transportation Needs (11/21/2023) PRAPARE - Transportation Lack of Transportation (Medical): No Lack of Transportation (Non-Medical): No Physical Activity: Sufficiently Active (11/19/2022) Exercise Vital Sign Days of Exercise per Week: 4 days Minutes of Exercise per Session: 40 min Stress: No Stress Concern Present (11/19/2022) [employer] [place] [employer] - Occupational Stress Questionnaire Feeling of Stress : Not at all Social Connections: Unknown (11/21/2023) Social Connection and Isolation Panel [NHANES] Active Member of Clubs or Organizations: No Attends Club or Organization Meetings: Never Housing Stability: Unknown (11/19/2022) Housing Stability Vital Sign Unable to Pay for Housing in the Last Year: No Unstable Housing in the Last Year: No [3] Current Outpatient Medications: valACYclovir (VALTREX) 1000 MG tablet, TAKE 2 TABLETS (2,000 MG TOTAL) BY MOUTH TWICE A DAY FOR 1 DAY, Disp: , Rfl: buPROPion (WELLBUTRIN XL) 300 MG 24 hr tablet, Take 1 (one) tablet (300 mg total) by mouth daily ., Disp: , Rfl: cetirizine (ZYRTEC) 10 MG tablet, Take 1 (one) tablet (10 mg total) by mouth every evening ., Disp: , Rfl: cholecalciferol, vitamin D3, 5,000 unit Tab tablet, Take by mouth daily ., Disp: , Rfl: cyanocobalamin (B-12) 1000 MCG tablet, Take 5 (five) tablets (5,000 mcg total) by mouth daily ., Disp: , Rfl: estradioL (ESTRACE) 0.01 % (0.1 mg/gram) vaginal cream, APPLY SMALL AMOUNT DIRECTED VAGINALLY EVERY OTHER DAY X 4 WEEKS THEN TWICE A WEEK, Disp: , Rfl: fluconazole (DIFLUCAN) 150 MG tablet, Take 1 tablet, if no improvement in 3 days, take second tablet ., Disp: 2 tablet, Rfl: 0 ivermectin 1 % Crea, Apply topically ., Disp: , Rfl: magnesium hydroxide 400 mg (170 mg magnesium) Chew, as directed Orally, Disp: , Rfl: meclizine (ANTIVERT) 25 mg [...] at bedtime., Disp: 270 tablet, Rfl: 1 documented in this encounter [facility] 10-10-2024 Evaluation note Diagnosis Onset Date Resolution Maxillary sinusitis acute Augus t 2024 9:16am Migraine acute October 10, 2 025 9:16am Nausea acute October 10, 2 025 9:16am Constipation acute November 8:35am [facility] Work Phone: [phone] Zita Cash comes in today for followup of her hand mass excision. 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 At this point in time, the patient is doing well. Wound is healed. No signs of infection. Sutures were removed. IMPRESSION Two weeks left hand mass excision. PLAN We will have the patient do activity as tolerated. I will see her on a p.r.n. basis. AUTHENTICATED BY SAMEERA GONZALES, ON 07/17/2024 11:56:11[facility]06-07-2025 History of Present illness Narrative* Sameera Gonzales MD - 07/17/2024 10:05 AM EDT Teresa Cash comes in today for followup of her hand mass excision. 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 At this point in time, the patient is doing well. Woundis healed. No signs of infection. Sutures were removed. IMPRESSION Two weeks left hand mass excision. PLAN We will have the patient do activity as tolerated. I will see her on a p.r.n. basis. documented in this [id number] NoteSubjective: Patient ID: Teresa Cash is a 48 y.o. female. HPI See evisit questionnaire Past Medical History: Diagnosis Date Anemia Arrhythmia [...] Stroke (HCC) maternal grandmother COD, brother x3 2017 Past Surgical History: Procedure Laterality Date ADENOIDECTOMY as an APPENDECTOMY CYST REMOVAL GANGLIONECTOMY UPPER EXTREMITY Left 07/02/2024 Procedure: Left hand cyst removal; Surgeon: Sameera Gonzales MD; Location: Main OR; Service: Orthopedic; Laterality: Left; KNEE SURGERY Right 03/25/2018 Dr. Ramsay TONSILLECTOMY as an Family History Problem Relation Age of Onset Cancer Mother bladder, pelvis Arrhythmia Mother Arthritis Mother Depression Mother Cancer Father type unknown Alcohol abuse Father Early Father suicide Mental illness Father Arthritis Maternal Aunt Dementia Paternal Aunt Stroke Maternal Grandmother stroke as COD Heart failure Maternal Grandmother Arthritis Maternal Grandmother Hearing loss Maternal Grandmother Cancer Paternal Grandmother Abdominal Hypertension Brother Uncontrolled Stroke Brother X3 in 2017 Cancer Other Hypertension Other Seizures Other Stroke Other Breast cancer Neg Hx Allergies[1] Social History[2] Current Medications[3] There were no vitals taken for this visit. Review of Systems Constitutional: Negative for chills and fever. Respiratory: Negative for shortness of breath. Cardiovascular: Negative for chest pain. Genitourinary: Positive for vaginal discharge. Negative for decreased urine volume, dysuria, menstrual problem, pelvic pain and vaginal bleeding. Objective: Physical Exam Assessment/Plan: Diagnoses and all orders for this visit: Yeast infection Comments: will treat with diflucan. would recommend treatment in the future daily with antibiotic to prevent yeast. Orders: - fluconazole (DIFLUCAN) 150 MG tablet; Take 1 tablet, if no improvement in 3 days, take second tablet . [1] Allergies Allergen Reactions Apple Itching Erythromycin GI Intolerance Influenza Virus Vaccines GI Intolerance Maple Flavor Itching Pork Derived (Porcine) Itching Amoxicillin Rash Black Pepper Swelling and Rash Cephalexin Rash Clarithromycin Rash Garlic Swelling and Rash Penicillins Rash [2] Social History Socioeconomic History Marital status: Tobacco Use Smoking status: Never Smokeless tobacco: Never Vaping Use Vaping status: Never Used Substance and Sexual Activity Alcohol use: Yes Alcohol/week: 5.0 standard drinks of alcohol Types: 5 Glasses of wine per week Drug use: Never Sexual activity: Yes Partners: Male control/protection: None Social Drivers of Health Financial Resource Strain: Low Risk (11/19/2022) Overall Financial Resource Strain (CARDIA) Difficulty of Paying Living Expenses: Not very hard Food Insecurity: No Food Insecurity (11/21/2023) Hunger Vital Sign Worried About Running Out of Food in the Last Year: Never true Ran Out of Food in the Last Year: Never true Transportation Needs: No Transportation Needs (11/21/2023) PRAPARE - Transportation Lack of Transportation (Medical): No Lack of Transportation (Non-Medical): No Physical Activity: Sufficiently Active (11/19/2022) Exercise Vital Sign Days of Exercise per Week: 4 days Minutes of Exercise per Session: 40 min Stress: No Stress Concern Present (11/19/2022) [employer] [place] [employer] - Occupational Stress Questionnaire Feeling of Stress : Not at all Social Connections: Unknown (11/21/2023) Social Connection and Isolation Panel [NHANES] Active Member of Clubs or Organizations: No Attends Club or Organization Meetings: Never Housing Stability: Unknown (11/19/2022) Housing Stability Vital Sign Unable to Pay for Housing in the Last Year: No Unstable Housing in the Last Year: No [3] Current Outpatient Medications: buPROPion (WELLBUTRIN XL) 300 MG 24 hr tablet, Take 1 (one) tablet (300 mg total) by mouth daily ., Disp: , Rfl: cetirizine (ZYRTEC) 10 MG tablet, Take 1 (one) tablet (10 mg total) by mouth every evening ., Disp: , Rfl: cholecalciferol, vitamin D3, 5,000 unit Tab tablet, Take by mouth daily ., Disp: , Rfl: cyanocobalamin (B-12) 1000 MCG tablet, Take 5 (five) tablets (5,000 mcg total) by mouth daily ., Disp: , Rfl: estradioL (ESTRACE) 0.01 % (0.1 mg/gram) vaginal cream, APPLY SMALL AMOUNT DIRECTED VAGINALLY EVERY OTHER DAY X 4 WEEKS THEN TWICE A WEEK, Disp: , Rfl: fluconazole (DIFLUCAN) 150 M (more content not included)...[facility]05-29-2025 History of Present illness Narrative* Galilea Whitaker, [facility] - 07/08/2024 9:38 AM EDT Subjective: Patient ID: Teresa Cash is a 48 y.o. female. HPI See evisit questionnaire Past Medical History: Diagnosis Date Anemia Arrhythmia [...] Stroke (HCC) maternal grandmother COD, brother x3 2017 Past Surgical History: Procedure Laterality Date ADENOIDECTOMY as an infant APPENDECTOMY CYST REMOVAL GANGLIONECTOMY UPPER EXTREMITY Left 07/02/2024 Procedure: Left hand cyst removal; Surgeon: Sameera Gonzales MD; Location: [facility] [place]; Service: Orthopedic; Laterality: Left; KNEE SURGERY Right 03/25/2018 Dr. Ramsay TONSILLECTOMY as an infant Family History Problem Relation Age of Onset Cancer Mother bladder, pelvis Arrhythmia Mother Arthritis Mother Depression Mother Cancer Father type unknown Alcohol abuse Father Early Father suicide Mental illness Father Arthritis Maternal Aunt Dementia Paternal Aunt Stroke Maternal Grandmother stroke as COD Heart failure Maternal Grandmother Arthritis Maternal Grandmother Hearing loss Maternal Grandmother Cancer Paternal Grandmother Abdominal Hypertension Brother Uncontrolled Stroke Brother X3 in 2018 Cancer Other Hypertension Other Seizures Other Stroke Other Breast cancer Neg Hx Allergies[1] Social History[2] Current Medications[3] There were no vitals taken for this visit. Review of Systems Constitutional: Negative for chills and fever. Respiratory: Negative for shortness of breath. Cardiovascular: Negative for chest pain. Genitourinary: Positive for vaginal discharge. Negative for decreased urine volume, dysuria, menstrual problem, pelvic pain and vaginal bleeding. Objective: Physical Exam Assessment/Plan: Diagnoses and all orders for this visit: Yeast infection Comments: will treat with diflucan. would recommend treatment in the future daily with antibiotic to prevent yeast. Orders: - fluconazole (DIFLUCAN) 150 MG tablet; Take 1 tablet, if no improvement in 3 days, take second tablet . [1] Allergies Allergen Reactions Apple Itching Erythromycin GI Intolerance Influenza Virus Vaccines GI Intolerance Maple Flavor Itching Pork Derived (Porcine) Itching Amoxicillin Rash Black Pepper Swelling and Rash Cephalexin Rash Clarithromycin Rash Garlic Swelling and Rash Penicillins Rash [2] Social History Socioeconomic History Marital status: Tobacco Use Smoking status: Never Smokeless tobacco: Never Vaping Use Vaping status: Never Used Substance and Sexual Activity Alcohol use: Yes Alcohol/week: 5.0 standard drinks of alcohol Types: 5 Glasses of wine per week Drug use: Never Sexual activity: Yes Partners: Male control/protection: None Social Drivers of Health Financial Resource Strain: Low Risk (11/19/2022) Overall Financial Resource Strain (CARDIA) Difficulty of Paying Living Expenses: Not very hard Food Insecurity: No Food Insecurity (11/21/2023) Hunger Vital Sign Worried About Running Out of Food in the Last Year: Never true Ran Out of Food in the Last Year: Never true Transportation Needs: No Transportation Needs (11/21/2023) PRAPARE - Transportation Lack of Transportation (Medical): No Lack of Transportation (Non-Medical): No Physical Activity: Sufficiently Active (11/19/2022) Exercise Vital Sign Days of Exercise per Week: 4 days Minutes of Exercise per Session: 40 min Stress: No Stress Concern Present (11/19/2022) [employer] [place] [employer] - Occupational Stress Questionnaire Feeling of Stress : Not at all Social Connections: Unknown (11/21/2023) Social Connection and Isolation Panel [NHANES] Active Member of Clubs or Organizations: No Attends Club or Organization Meetings: Never Housing Stability: Unknown (11/19/2022) Housing Stability Vital Sign Unable to Pay for Housing in the Last Year: No Unstable Housing in the Last Year: No [3] Current Outpatient Medications: buPROPion (WELLBUTRIN XL) 300 MG 24 hr tablet, Take 1 (one) tablet (300 mg total) by mouth daily .,Disp: , Rfl: cetirizine (ZYRTEC) 10 MG tablet, Take 1 (one) tablet (10 mg total) by mouth every evening ., Disp:, Rfl: cholecalciferol, vitamin D3, 5,000 unit Tab tablet, Take by mouth daily ., Disp: , Rfl: cyanocobalamin (B-12) 1000 MCG tablet, Take 5 (five) tablets (5,000 mcg total) by mouth daily ., Disp: , Rfl: estradioL (ESTRACE) 0.01 % (0.1 mg/gram) vaginal cream, APPLY SMALL AMOUNT DIRECTED VAGINALLY EVERY OTHER DAY X 4 WEEKS THEN TWICE A WEEK, Disp: , Rfl: fluconazole (DIFLUCAN) 150 MG tablet, Take 1 tablet, if no improvement in 3 days, take second tablet ., Disp: 2 tablet, Rfl: 0 ivermectin 1 % Crea, Apply topically ., Disp: , Rfl: magnesium hydroxide 400 mg (170 mg magnesium) Chew, as directed Orally, Disp: , Rfl: meclizine (ANTIVERT) 25 mg [...] daily ., Disp: 1530 g, Rfl: 3 sulfamethoxazole-trimethoprim (Bactrim) 400-80 mg per tablet, Take 1 (one) tablet by mouth 2 (two) times a day for 7 days ., Disp: 14 tablet, Rfl: 0 tiZANidine (Zanaflex) 4 MG tablet, Take up to 3 (three) tablets (12 mg total) by mouth at bedtime.,Disp: 270 tablet, Rfl: 1 valACYclovir (VALTREX) 1000 MG tablet, TAKE 2 TABLETS (2,000 MG TOTAL) BY MOUTH TWICE A DAY FOR 1 DAY, Disp: , Rfl: documented in this [id number] Zita Cash comes in today for presurgical consultation regarding her left hand mass. She said she has noticed this mass over the course of the last 7 to 8 months. She said if she recalls probably back in November she noted the hard lump. Said it started to get larger. It has kind of plateaued. Went on to have x-rays as well as an MRI scan. The MRI scan shows the palmar mass on the left hand. I reviewed the MRI scan with the patient. There appears to be a subcutaneous palmar mass just radial to the thenar eminence which is tender to palpation. PAST MEDICAL HISTORY ALLERGIES Apples, erythromycin, flu vaccine, chan, pork-derived products, amoxicillin, Keflex, clarithromycin, Garlique, penicillin. MEDICATIONS Currently include Zyrtec, vitamin D, vitamin B12, Estrace, Antivert, Benicar, Protonix, GlycoLax, Zanaflex. ILLNESSES Include a history of anemia, stomach reflux, hypertension, heart arrhythmia, migraine headaches, PVCs. SURGERIES Include appendectomy, tonsils and adenoids, cyst removal, right knee arthroscopy, tonsillectomy. SOCIAL HISTORY . Does not smoke. Drinks on a social basis. REVIEW OF SYSTEMS Left hand mass, pain. PHYSICAL EXAMINATION Chest: Benign. Abdomen: Benign. Cardiac: Benign. Extremities: She has a palpable, 1 x 1 cm subcutaneous mass on the left palm. Neurologically intact left upper extremity with 2+ pulses. IMPRESSION Left hand mass. PLAN We will proceed forward with excision of mass of left hand. All risks and complications were discussed. I discussed all of the treatment options with the patient. The patient part of the entire decision-making process. Mental health status was assessed. Narcotic review was performed. Last listed medication was tramadol on 02/21/2024. Presurgical medication review was performed with the patient. AUTHENTICATED BY SAMEERA GONZALES, ON 06/26/2024 11:16:48[facility]05-05-2025 NoteSubjective: Patient ID: Teresa Cash is a 48 y.o. female. HPI See evisit questionnaire. Recently on antibiotics for bronchitis, now with yeast infection. Past Medical History: Diagnosis Date Anemia Arrhythmia [...] History: Procedure Laterality Date ADENOIDECTOMY as an APPENDECTOMY CYST REMOVAL KNEE SURGERY Right 03/25/2018 Dr. Ramsay TONSILLECTOMY as an infant Family History Problem Relation Age of Onset Cancer Mother bladder, pelvis Arrhythmia Mother Arthritis Mother Depression Mother Cancer Father type unknown Alcohol abuse Father Early Father suicide Mental illness Father Arthritis Maternal Aunt Dementia Paternal Aunt Stroke Maternal Grandmother stroke as COD Heart failure Maternal Grandmother Arthritis Maternal Grandmother Hearing loss Maternal Grandmother Cancer Paternal Grandmother Abdominal Hypertension Brother Uncontrolled Stroke Brother X3 in 2018 Cancer Other Hypertension Other Seizures Other Stroke Other Breast cancer Neg Hx Allergies[1] Social History[2] Current Medications[3] There were no vitals taken for this visit. Review of Systems Constitutional: Negative for chills and fever. Genitourinary: Positive for vaginal discharge. Negative for dysuria, pelvic pain, urgency, vaginal bleeding and vaginal pain. Objective: Physical Exam Assessment/Plan: Diagnoses and all orders for this visit: Yeast infection Comments: Will treat with diflucan. Recommend probiotics with antibiotics in the future to avoid yeast infection. Orders: - fluconazole (DIFLUCAN) 150 MG tablet; Take 1 (one) tablet (150 mg total) by mouth once If no improvement after 3 days, take second tablet. for 1 dose . [1] Allergies Allergen Reactions Apple Itching Erythromycin GI Intolerance Influenza Virus Vaccines GI Intolerance Maple Flavor Itching Pork Derived (Porcine) Itching Amoxicillin Rash Black Pepper Swelling and Rash Cephalexin Rash Clarithromycin Rash Garlic Swelling and Rash Penicillins Rash [2] Social History Socioeconomic History Marital status: Tobacco Use Smoking status: Never Smokeless tobacco: Never Vaping Use Vaping status: Never Used Substance and Sexual Activity Alcohol use: Yes Alcohol/week: 5.0 standard drinks of alcohol Types: 5 Glasses of wine per week Drug use: Never Sexual activity: Yes Partners: Male control/protection: None Social Drivers of Health Financial Resource Strain: Low Risk (11/19/2022) Overall Financial Resource Strain (CARDIA) Difficulty of Paying Living Expenses: Not very hard Food Insecurity: No Food Insecurity (11/21/2023) Hunger Vital Sign Worried About Running Out of Food in the Last Year: Never true Ran Out of Food in the Last Year: Never true Transportation Needs: No Transportation Needs (11/21/2023) PRAPARE - Transportation Lack of Transportation (Medical): No Lack of Transportation (Non-Medical): No Physical Activity: Sufficiently Active (11/19/2022) Exercise Vital Sign Days of Exercise per Week: 4 days Minutes of Exercise per Session: 40 min Stress: No Stress Concern Present (11/19/2022) [employer] [place] [employer] - Occupational Stress Questionnaire Feeling of Stress : Not at all Social Connections: Unknown (11/21/2023) Social Connection and Isolation Panel [NHANES] Active Member of Clubs or Organizations: No Attends Club or Organization Meetings: Never Housing Stability: Unknown (11/19/2022) Housing Stability Vital Sign Unable to Pay for Housing in the Last Year: No Unstable Housing in the Last Year: No [3] Current Outpatient Medications: buPROPion (WELLBUTRIN XL) 300 MG 24 hr tablet, Take 1 (one) tablet (300 mg total) by mouth daily ., Disp: , Rfl: cetirizine (ZYRTEC) 10 MG tablet, Take 1 (one) tablet (10 mg total) by mouth every evening ., Disp: , Rfl: cholecalciferol, vitamin D3, 5,000 unit Tab tablet, Take by mouth daily ., Disp: , Rfl: cyanocobalamin (B-12) 1000 MCG tablet, Take 5 (five) tablets (5,000 mcg total) by mouth daily ., Disp: , Rfl: estradioL (ESTRACE) 0.01 % (0.1 mg/gram) vaginal cream, APPLY SMALL AMOUNT DIRECTED VAGINALLY EVERY OTHER DAY X 4 WEEKS THEN TWICE A WEEK, Disp: , Rfl: fluconazole (DIFLUCAN) 150 MG tablet, Take 1 (one) tablet (150 mg total) by mouth once If no improvement after 3 days, take second tablet. for 1 dose ., Disp: 2 tablet, Rfl: 0 ivermectin 1 % Crea, Apply (more content not included)...[facility] 06-14-2024 History of Present illness Narrative* Galilea Whitaker, [facility] - 06/14/2024 7:45 AM EDT Subjective: Patient ID: Teresa Cash is a 48 y.o. female. HPI See evisit questionnaire. Recently on antibiotics for bronchitis, now with yeast infection. Past Medical History: Diagnosis Date Anemia Arrhythmia [...] History: Procedure Laterality Date ADENOIDECTOMY as an APPENDECTOMY CYST REMOVAL KNEE SURGERY Right 03/25/2018 Dr. Ramsay TONSILLECTOMY as an Family History Problem Relation Age of Onset Cancer Mother bladder, pelvis Arrhythmia Mother Arthritis Mother Depression Mother Cancer Father type unknown Alcohol abuse Father Early Father suicide Mental illness Father Arthritis Maternal Aunt Dementia Paternal Aunt Stroke Maternal Grandmother stroke as COD Heart failure Maternal Grandmother Arthritis Maternal Grandmother Hearing loss Maternal Grandmother Cancer Paternal Grandmother Abdominal Hypertension Brother Uncontrolled Stroke Brother X3 in 2018 Cancer Other Hypertension Other Seizures Other Stroke Other Breast cancer Neg Hx Allergies[1] Social History[2] Current Medications[3] There were no vitals taken for this visit. Review of Systems Constitutional: Negative for chills and fever. Genitourinary: Positive for vaginal discharge. Negative for dysuria, pelvic pain, urgency, vaginal bleeding and vaginal pain. Objective: Physical Exam Assessment/Plan: Diagnoses and all orders for this visit: Yeast infection Comments: Will treat with diflucan. Recommend probiotics with antibiotics in the future to avoid yeast infection. Orders: - fluconazole (DIFLUCAN) 150 MG tablet; Take 1 (one) tablet (150 mg total) by mouth once If no improvement after 3 days, take second tablet. for 1 dose . [1] Allergies Allergen Reactions Apple Itching Erythromycin GI Intolerance Influenza Virus Vaccines GI Intolerance Maple Flavor Itching Pork Derived (Porcine) Itching Amoxicillin Rash Black Pepper Swelling and Rash Cephalexin Rash Clarithromycin Rash Garlic Swelling and Rash Penicillins Rash [2] Social History Socioeconomic History Marital status: Tobacco Use Smoking status: Never Smokeless tobacco: Never Vaping Use Vaping status: Never Used Substance and Sexual Activity Alcohol use: Yes Alcohol/week: 5.0 standard drinks of alcohol Types: 5 Glasses of wine per week Drug use: Never Sexual activity: Yes Partners: Male control/protection: None Social Drivers of Health Financial Resource Strain: Low Risk (11/19/2022) Overall Financial Resource Strain (CARDIA) Difficulty of Paying Living Expenses: Not very hard Food Insecurity: No Food Insecurity (11/21/2023) Hunger Vital Sign Worried About Running Out of Food in the Last Year: Never true Ran Out of Food in the Last Year: Never true Transportation Needs: No Transportation Needs (11/21/2023) PRAPARE - Transportation Lack of Transportation (Medical): No Lack of Transportation (Non-Medical): No Physical Activity: Sufficiently Active (11/19/2022) Exercise Vital Sign Days of Exercise per Week: 4 days Minutes of Exercise per Session: 40 min Stress: No Stress Concern Present (11/19/2022) [employer] [place] [employer] - Occupational Stress Questionnaire Feeling of Stress : Not at all Social Connections: Unknown (11/21/2023) Social Connection and Isolation Panel [NHANES] Active Member of Clubs or Organizations: No Attends Club or Organization Meetings: Never Housing Stability: Unknown (11/19/2022) Housing Stability Vital Sign Unable to Pay for Housing in the Last Year: No Unstable Housing in the Last Year: No [3] Current Outpatient Medications: buPROPion (WELLBUTRIN XL) 300 MG 24 hr tablet, Take 1 (one) tablet (300 mg total) by mouth daily .,Disp: , Rfl: cetirizine (ZYRTEC) 10 MG tablet, Take 1 (one) tablet (10 mg total) by mouth every evening ., Disp:, Rfl: cholecalciferol, vitamin D3, 5,000 unit Tab tablet, Take by mouth daily ., Disp: , Rfl: cyanocobalamin (B-12) 1000 MCG tablet, Take 5 (five) tablets (5,000 mcg total) by mouth daily ., Disp: , Rfl: estradioL (ESTRACE) 0.01 % (0.1 mg/gram) vaginal cream, APPLY SMALL AMOUNT DIRECTED VAGINALLY EVERY OTHER DAY X 4 WEEKS THEN TWICE A WEEK, Disp: , Rfl: fluconazole (DIFLUCAN) 150 MG tablet, Take 1 (one) tablet (150 mg total) by mouth once If no improvement after 3 days, take second tablet. for 1 dose ., Disp: 2 tablet, Rfl: 0 ivermectin 1 % Crea, Apply topically . (Patient not taking: Reported on 06/01/2024 .), Disp: , Rfl: magnesium hydroxide 400 mg (170 mg magnesium) Chew, as directed Orally, Disp: , Rfl: meclizine (ANTIVERT) 25 mg [...] by mouth at bedtime.,Disp: 270 tablet, Rfl: 1 valACYclovir (VALTREX) 1000 MG tablet, TAKE 2 TABLETS (2,000 MG TOTAL) BY MOUTH TWICE A DAY FOR 1 DAY, Disp: , Rfl: documented in this [id number] NoteOPG [address] [facility] [address] [facility] [id number] Chief Complaint Patient presents with Left Hand - Follow-up Teresa Cash returns to the office today to review the results of the left hand MRI. She does not report any increase or decrease in size of the hand cyst. No new injury reported. No changes in health since her last office visit. The patient's past medical history, surgical history, social history, family history, medications and allergies were reviewed with the patient today and are available in the chart for further review. Allergies[1] Current Medications[2] Past Medical History: Diagnosis Date Anemia Arrhythmia [...] Right 03/25/2018 Dr. Ramsay TONSILLECTOMY as an Social History[3] Imaging: MRI left hand: There is a cystlike structure best seen on 15 Series 5 on the Coronal STIR, as well as on the axial 13/8. Otherwise negative exam. Interestingly enough the radiologist from [facility] read this exam as completely normal. Assessment/Plan: After Dr. Lawson and I review these images, we are both in agreement that there is definitely a cystlike structure located in the above images. She would like to go ahead and have that surgically removed. The office will get in touch with her in approximately 10 to 14 days and get this scheduled for her. I am more than happy to see her back if needed prior to her surgery. [1] Allergies Allergen Reactions Apple Itching Erythromycin GI Intolerance Influenza Virus Vaccines GI Intolerance Maple Flavor Itching Pork Derived (Porcine) Itching Amoxicillin Rash Black Pepper Swelling and Rash Cephalexin Rash Clarithromycin Rash Garlic Swelling and Rash Penicillins Rash [2] Current Outpatient Medications: buPROPion (WELLBUTRIN XL) 300 MG 24 hr tablet, Take 1 (one) tablet (300 mg total) by mouth daily ., Disp: , Rfl: cetirizine (ZYRTEC) 10 MG tablet, Take 1 (one) tablet (10 mg total) by mouth every evening ., Disp: , Rfl: cholecalciferol, vitamin D3, 5,000 unit Tab tablet, Take by mouth daily ., Disp: , Rfl: cyanocobalamin (B-12) 1000 MCG tablet, Take 5 (five) tablets (5,000 mcg total) by mouth daily ., Disp: , Rfl: estradioL (ESTRACE) 0.01 % (0.1 mg/gram) vaginal cream, APPLY SMALL AMOUNT DIRECTED VAGINALLY EVERY OTHER DAY X 4 WEEKS THEN TWICE A WEEK, Disp: , Rfl: magnesium hydroxide 400 mg (170 mg magnesium) Chew, as directed Orally, Disp: , Rfl: meclizine (ANTIVERT) 25 mg [...] at bedtime., Disp: 270 tablet, Rfl: 1 valACYclovir (VALTREX) 1000 MG tablet, TAKE 2 TABLETS (2,000 MG TOTAL) BY MOUTH TWICE A DAY FOR 1 DAY, Disp: , Rfl: ivermectin 1 % Crea, Apply topically . (Patient not taking: Reported on 06/01/2024 .), Disp: , Rfl: [3] Social History Socioeconomic History Marital status: Tobacco Use Smoking status: Never Smokeless tobacco: Never Vaping Use Vaping status: Never Used Substance and Sexual Activity Alcohol use: Yes Alcohol/week: 5.0 standard drinks of alcohol Types: 5 Glasses of wine per week Drug use: Never Sexual activity: Yes Partners: Male control/protection: None Social Drivers of Health Financial Resource Strain: Low Risk (11/19/2022) Overall Financial Resource Strain (CARDIA) Difficulty of Paying Living Expenses: Not very hard Food Insecurity: No Food Insecurity (11/21/2023) Hunger Vital Sign Worried About Running Out of Food in the Last Year: Never true Ran Out of Food in the Last Year: Never true Transportation Needs: No Transportation Needs (11/21/2023) PRAPARE - Transportation Lack of Transportation (Medical): No Lack of Transportation (Non-Medical): No Physical Activity: Sufficiently Active (11/19/2022) Exercise Vital Sign Days of Exercise per Week: 4 days Minutes of Exercise per Session: 40 min Stress: No Stress Concern Present (11/19/2022) RSVP Law o (more content not included)...[facility] 06-04-2024 History of Present illness Narrative* Vania Gunter, [facility] - 06/04/2024 12:24 PM EDT [facility] [address] [facility] [address] [facility] [id number] Chief Complaint Patient presents with Left Hand - Follow-up Teresa Cash returns to the office today to review the results of the left hand MRI. She does notreport any increase or decrease in size of the hand cyst. No new injury reported. No changes in health since her last office visit. The patient's past medical history, surgical history, social history, family history, medications and allergies were reviewed with the patient today and are available in the chart for further review. Allergies[1] Current Medications[2] Past Medical History: Diagnosis Date Anemia Arrhythmia [...] History: Procedure Laterality Date ADENOIDECTOMY as an APPENDECTOMY CYST REMOVAL KNEE SURGERY Right 03/25/2018 Dr. Ramsay TONSILLECTOMY as an infant Social History[3] Imaging: MRI left hand: There is a cystlike structure best seen on 15 Series 5 on the Coronal STIR,as well as on the axial 13/8. Otherwise negative exam. Interestingly enough the radiologist from [facility] read this exam as completely normal. Assessment/Plan: After Dr. Lawson and I review these images, we are both in agreement that there is definitely a cystlike structure located in the above images. She would like to go ahead and have that surgically removed. The office will get in touch with her in approximately 10 to 14 days and getthis scheduled for her. I am more than happy to see her back if needed prior to her surgery. [1] Allergies Allergen Reactions Apple Itching Erythromycin GI Intolerance Influenza Virus Vaccines GI Intolerance Maple Flavor Itching Pork Derived (Porcine) Itching Amoxicillin Rash Black Pepper Swelling and Rash Cephalexin Rash Clarithromycin Rash Garlic Swelling and Rash Penicillins Rash [2] Current Outpatient Medications: buPROPion (WELLBUTRIN XL) 300 MG 24 hr tablet, Take 1 (one) tablet (300 mg total) by mouth daily .,Disp: , Rfl: cetirizine (ZYRTEC) 10 MG tablet, Take 1 (one) tablet (10 mg total) by mouth every evening ., Disp:, Rfl: cholecalciferol, vitamin D3, 5,000 unit Tab tablet, Take by mouth daily ., Disp: , Rfl: cyanocobalamin (B-12) 1000 MCG tablet, Take 5 (five) tablets (5,000 mcg total) by mouth daily ., Disp: , Rfl: estradioL (ESTRACE) 0.01 % (0.1 mg/gram) vaginal cream, APPLY SMALL AMOUNT DIRECTED VAGINALLY EVERY OTHER DAY X 4 WEEKS THEN TWICE A WEEK, Disp: , Rfl: magnesium hydroxide 400 mg (170 mg magnesium) Chew, as directed Orally, Disp: , Rfl: meclizine (ANTIVERT) 25 mg [...] by mouth at bedtime.,Disp: 270 tablet, Rfl: 1 valACYclovir (VALTREX) 1000 MG tablet, TAKE 2 TABLETS (2,000 MG TOTAL) BY MOUTH TWICE A DAY FOR 1 DAY, Disp: , Rfl: ivermectin 1 % Crea, Apply topically . (Patient not taking: Reported on 06/01/2024 .), Disp: , Rfl: [3] Social History Socioeconomic History Marital status: Tobacco Use Smoking status: Never Smokeless tobacco: Never Vaping Use Vaping status: Never Used Substance and Sexual Activity Alcohol use: Yes Alcohol/week: 5.0 standard drinks of alcohol Types: 5 Glasses of wine per week Drug use: Never Sexual activity: Yes Partners: Male control/protection: None Social Drivers of Health Financial Resource Strain: Low Risk (11/19/2022) Overall Financial Resource Strain (CARDIA) Difficulty of Paying Living Expenses: Not very hard Food Insecurity: No Food Insecurity (11/21/2023) Hunger Vital Sign Worried About Running Out of Food in the Last Year: Never true Ran Out of Food in the Last Year: Never true Transportation Needs: No Transportation Needs (11/21/2023) PRAPARE - Transportation Lack of Transportation (Medical): No Lack of Transportation (Non-Medical): No Physical Activity: Sufficiently Active (11/19/2022) Exercise Vital Sign Days of Exercise per Week: 4 days Minutes of Exercise per Session: 40 min Stress: No Stress Concern Present (11/19/2022) [employer] [place] [employer] - Occupational Stress Questionnaire Feeling of Stress : Not at all Social Connections: Unknown (11/21/2023) Social Connection and Isolation Panel [NHANES] Active Member of Clubs or Organizations: No Attends Club or Organization Meetings: Never Housing Stability: Unknown (11/19/2022) Housing Stability Vital Sign Unable to Pay for Housing in the Last Year: No Unstable Housing in the Last Year: No documented in this [id number] NoteSubjective: Patient ID: Teresa Cash is a 48 y.o. female. PERCY Moore presents today for CPE: Last Colonoscopy : 11/05/22 Rosendo- repeat 5 years Last Mammogram : 01/27/24 Last PAP : Nellony 12/15/19 Last Stress Test: 02/07/16 normal Immunizations: TDaP: 04/07/22 COVID: 06/05/20, declines PNA: declines FLU: n/a SHINGLES: declines Last CXR: 06/24/19 Optho: [facility] Dentist: Q6 months GI: Rosendo- 04/14/24- wean pantoprazole- has completely stopped and tolerating well Nephro: 02/17/24- Tanphaichitr- f/u PRN Derm: [facility] Relates that she is not exercising currently Was admitted to [facility] in January for GOPAL- has seen nephro and no source was ever found. She was fine and then that night she had extreme vomiting and ill feeling overall. She denies CP/SOB Denies Gómez/dizziness Relates bowels are normal with no dark or bloody stools. Relates more salads recently. States urinating without a problem. Last 2-3 weeks she finally stopped having nocturia. She is fasting today Past Medical History: Diagnosis Date Anemia Arrhythmia [...] History: Procedure Laterality Date ADENOIDECTOMY as an APPENDECTOMY CYST REMOVAL KNEE SURGERY Right 03/25/2018 Dr. Ramsay TONSILLECTOMY as an Family History Problem Relation Age of Onset Cancer Mother bladder, pelvis Arrhythmia Mother Arthritis Mother Depression Mother Cancer Father type unknown Alcohol abuse Father Early Father suicide Mental illness Father Arthritis Maternal Aunt Dementia Paternal Aunt Stroke Maternal Grandmother stroke as COD Heart failure Maternal Grandmother Arthritis Maternal Grandmother Hearing loss Maternal Grandmother Cancer Paternal Grandmother Abdominal Hypertension Brother Uncontrolled Stroke Brother X3 in 2018 Cancer Other Hypertension Other Seizures Other Stroke Other Breast cancer Neg Hx Allergies[1] Social History[2] Current Medications[3] BP 133/85 (BP Location: Left arm, Patient Position: Sitting, BP Cuff Size: Adult) Pulse 74 Temp 97.9 degrees F (36.6 degrees C) Ht 5' 7.05" Wt 77.1 kg (170 lb) SpO2 97% BMI 26.59 kg/m Review of Systems Constitutional: Negative for appetite change, chills, fatigue, fever and unexpected weight change. HENT: Negative for congestion, dental problem, rhinorrhea, sore throat and trouble swallowing. Eyes: Negative. Negative for visual disturbance. Respiratory: Negative for apnea, cough and shortness of breath. Cardiovascular: Negative for chest pain, palpitations and leg swelling. Gastrointestinal: Positive for constipation (but much improved). Negative for abdominal distention, blood in stool, diarrhea, nausea and rectal pain. Endocrine: Negative. Genitourinary: Negative for difficulty urinating, dysuria, frequency, menstrual problem and urgency. Musculoskeletal: Negative for arthralgias, back pain, joint swelling and myalgias. Neurological: Negative for dizziness, syncope, light-headedness, numbness and headaches. Hematological: Negative. Psychiatric/Behavioral: Positive for sleep disturbance (not new/changed). Negative for dysphoric mood. The patient is not nervous/anxious. Objective: Physical Exam Vitals reviewed. Constitutional: Appearance: She is well-developed. HENT: Head: Normocephalic and atraumatic. Right Ear: Hearing, tympanic membrane, ear canal and external ear normal. Left Ear: Hearing, tympanic membrane, ear canal and external ear normal. Nose: Nose normal. Mouth/Throat: Lips: [place]. Mouth: Mucous membranes are moist. Pharynx: Uvula [...] sounds. Abdominal: General: Bowel sounds are normal. There is no distension. Palpations: Abdomen is soft. Abdomen is not rigid. Tenderness: There is no abdominal tenderness. There is no guarding. Musculoskeletal: Cervical back: Normal range of motion and neck supple. Left hip: No deform (more content not included)...[facility] 05-21-2024 History of Present illness Narrative* Galilea Whitaker, [facility] - 05/21/2024 12:09 PM EDT Subjective: Patient ID: Teresa Cash is a 48 y.o. female. PERCY Moore presents today for CPE: Last Colonoscopy : 11/05/22 Rosendo- repeat 5 years Last Mammogram : 01/27/24 Last PAP : Marcanthony 12/15/19 Last Stress Test: 02/07/16 normal Immunizations: TDaP: 04/07/22 COVID: 06/05/20, declines PNA: declines FLU: n/a SHINGLES: declines Last CXR: 06/24/19 Optho: [facility] Dentist: Q6 months GI: Rosendo- 04/14/24- wean pantoprazole- has completely stopped and tolerating well Nephro: 02/17/24- Tanphaichitr- f/u PRN Derm: [facility] Relates that she is not exercising currently Was admitted to [facility] in January for GOPAL- has seen nephro and no source was ever found.She was fine and then that night she had extreme vomiting and ill feeling overall. She denies CP/SOB Denies Gómez/dizziness Relates bowels are normal with no dark or bloody stools. Relates more salads recently. States urinating without a problem. Last 2-3 weeks she finally stopped having nocturia. She is fasting today Past Medical History: Diagnosis Date Anemia Arrhythmia [...] History: Procedure Laterality Date ADENOIDECTOMY as an APPENDECTOMY CYST REMOVAL KNEE SURGERY Right 03/25/2018 Dr. Ramsay TONSILLECTOMY as an Family History Problem Relation Age of Onset Cancer Mother bladder, pelvis Arrhythmia Mother Arthritis Mother Depression Mother Cancer Father type unknown Alcohol abuse Father Early Father suicide Mental illness Father Arthritis Maternal Aunt Dementia Paternal Aunt Stroke Maternal Grandmother stroke as COD Heart failure Maternal Grandmother Arthritis Maternal Grandmother Hearing loss Maternal Grandmother Cancer Paternal Grandmother Abdominal Hypertension Brother Uncontrolled Stroke Brother X3 in 2018 Cancer Other Hypertension Other Seizures Other Stroke Other Breast cancer Neg Hx Allergies[1] Social History[2] Current Medications[3] BP 133/85 (BP Location: Left arm, Patient Position: Sitting, BP Cuff Size: Adult) Pulse 74 Temp97.9 F (36.6 C) Ht 5' 7.05" Wt 77.1 kg (170 lb) SpO2 97% BMI 26.59 kg/m Review of Systems Constitutional: Negative for appetite change, chills, fatigue, fever and unexpected weight change. HENT: Negative for congestion, dental problem, rhinorrhea, sore throat and trouble swallowing. Eyes: Negative. Negative for visual disturbance. Respiratory: Negative for apnea, cough and shortness of breath. Cardiovascular: Negative for chest pain, palpitations and leg swelling. Gastrointestinal: Positive for constipation (but much improved). Negative for abdominal distention,blood in stool, diarrhea, nausea and rectal pain. Endocrine: Negative. Genitourinary: Negative for difficulty urinating, dysuria, frequency, menstrual problem and urgency. Musculoskeletal: Negative for arthralgias, back pain, joint swelling and myalgias. Neurological: Negative for dizziness, syncope, light-headedness, numbness and headaches. Hematological: Negative. Psychiatric/Behavioral: Positive for sleep disturbance (not new/changed). Negative for dysphoric mood. The patient is not nervous/anxious. Objective: Physical Exam Vitals reviewed. Constitutional: Appearance: She is well-developed. HENT: Head: Normocephalic and atraumatic. Right Ear: Hearing, tympanic membrane, ear canal and external ear normal. Left Ear: Hearing, tympanic membrane, ear canal and external ear normal. Nose: Nose normal. Mouth/Throat: Lips: [place]. Mouth: Mucous membranes are moist. Pharynx: Uvula [...] sounds. Abdominal: General: Bowel sounds are normal. There is no distension. Palpations: Abdomen is [...] normal. Speech: Speech normal. Behavior: Behavior normal. Thought Content: Thought content normal. Cognition and Memory: Cognition normal. Assessment/Plan: Diagnoses and all orders for this visit: Annual physical exam Comments: Reviewed PMH, PSH, FMH, social hx. Discussed preventative needs and immunizations. Labs today Orders: - CBC and Differential; Future - Comprehensive Metabolic Panel; Future - Lipid Panel; Future - POC Urinalysis Dipstick Essential hypertension Comments: Stable, continue current regimen. GOPAL (acute kidney injury) Comments: idiopathic- did see nephro and cleared to PRN. will recheck labs. no recent concerns and energy improving. Vitamin D deficiency Comments: checking levels and will adjust plan as appropriate Orders: - Vitamin D, Total, 25-OH; Future Vitamin B12 deficiency Comments: checking levels and will adjust plan as appropriate Orders: - Vitamin B12; Future Other orders - MRI I am managing Teresa Cash for complex chronic condition(s) serving as the focal point for the patient's care for consistency and continuity over time. [1] Allergies Allergen Reactions Apple Itching Erythromycin GI Intolerance Influenza Virus Vaccines GI Intolerance Maple Flavor Itching Pork Derived (Porcine) Itching Amoxicillin Rash Black Pepper Swelling and Rash Cephalexin Rash Clarithromycin Rash Garlic Swelling and Rash Penicillins Rash [2] Social History Socioeconomic History Marital status: Tobacco Use Smoking status: Never Smokeless tobacco: Never Vaping Use Vaping status: Never Used Substance and Sexual Activity Alcohol use: Yes Alcohol/week: 5.0 standard drinks of alcohol Types: 5 Glasses of wine per week Drug use: Never Sexual activity: Yes Partners: Male control/protection: None Social Drivers of Health Financial Resource Strain: Low Risk (11/19/2022) Overall Financial Resource Strain (CARDIA) Difficulty of Paying Living Expenses: Not very hard Food Insecurity: No Food Insecurity (11/21/2023) Hunger Vital Sign Worried About Running Out of Food in the Last Year: Never true Ran Out of Food in the Last Year: Never true Transportation Needs: No Transportation Needs (11/21/2023) PRAPARE - Transportation Lack of Transportation (Medical): No Lack of Transportation (Non-Medical): No Physical Activity: Sufficiently Active (11/19/2022) Exercise Vital Sign Days of Exercise per Week: 4 days Minutes of Exercise per Session: 40 min Stress: No Stress Concern Present (11/19/2022) [employer] [place] [employer] - Occupational Stress Questionnaire Feeling of Stress : Not at all Social Connections: Unknown (11/21/2023) Social Connection and Isolation Panel [NHANES] Active Member of Clubs or Organizations: No Attends Club or Organization Meetings: Never Housing Stability: Unknown (11/19/2022) Housing Stability Vital Sign Unable to Pay for Housing in the Last Year: No Unstable Housing in the Last Year: No [3] Current Outpatient Medications: buPROPion (WELLBUTRIN XL) 300 MG 24 hr tablet, Take 1 (one) tablet (300 mg total) by mouth daily .,Disp: , Rfl: cetirizine (ZYRTEC) 10 MG tablet, Take 1 (one) tablet (10 mg total) by mouth every evening ., Disp:, Rfl: cholecalciferol, vitamin D3, 5,000 unit Tab tablet, Take by mouth daily ., Disp: , Rfl: cyanocobalamin (B-12) 1000 MCG tablet, Take 5 (five) tablets (5,000 mcg total) by mouth daily ., Disp: , Rfl: estradioL (ESTRACE) 0.01 % (0.1 mg/gram) vaginal cream, APPLY SMALL AMOUNT DIRECTED VAGINALLY EVERY OTHER DAY X 4 WEEKS THEN TWICE A WEEK, Disp: , Rfl: meclizine (ANTIVERT) 25 mg [...] by mouth at bedtime.,Disp: 270 tablet, Rfl: 1 valACYclovir (VALTREX) 1000 MG tablet, TAKE 2 TABLETS (2,000 MG TOTAL) BY MOUTH TWICE A DAY FOR 1 DAY, Disp: , Rfl: ivermectin 1 % Crea, Apply topically . (Patient not taking: Reported on 05/21/2024 .), Disp: , Rfl: magnesium hydroxide 400 mg (170 mg magnesium) Chew, as directed Orally, Disp: , Rfl: documented in this [id number] [facility] [address] [facility] [id number] Chief Complaint Patient presents with Left Hand - Pain Teresa Cash, 48 year old female presents to the office today with complaints of a lump or bump on her left palm of the hand. She states that this started back in November and since then this hard nodule has continued to increase. She will on occasion have numbness or tingling into the ring and pinky fingers. Over the last couple of months though it has stayed the same size she does not feel as though it has continued to increase. She denies any injury to that right hand. She states that she has had a ganglion cyst on the opposite hand in the past. This is not painful all the time but can cause discomfort with pressure applied. The patient's past medical history, surgical history, social history, family history, medications and allergies were reviewed with the patient today and are available in the chart for further review. Allergies Allergen Reactions Apple Itching Erythromycin GI Intolerance Influenza Virus Vaccines GI Intolerance Maple Flavor Itching Pork Derived (Porcine) Itching Amoxicillin Rash Black Pepper Swelling and Rash Cephalexin Rash Clarithromycin Rash Garlic Swelling and Rash Penicillins Rash Current Outpatient Medications: cetirizine (ZYRTEC) 10 MG tablet, Take 1 (one) tablet (10 mg total) by mouth every evening ., Disp: , Rfl: cholecalciferol, vitamin D3, 5,000 unit Tab tablet, Take by mouth daily ., Disp: , Rfl: cyanocobalamin (B-12) 1000 MCG tablet, Take 5 (five) tablets (5,000 mcg total) by mouth daily ., Disp: , Rfl: estradioL (ESTRACE) 0.01 % (0.1 mg/gram) vaginal cream, APPLY SMALL AMOUNT DIRECTED VAGINALLY EVERY OTHER DAY X 4 WEEKS THEN TWICE A WEEK, Disp: , Rfl: ivermectin 1 % Crea, Apply topically ., Disp: , Rfl: meclizine (ANTIVERT) 25 mg tablet, Take 1 (one) tablet (25 mg total) by mouth 3 (three) times a day as needed ., Disp: 30 tablet, Rfl: 2 olmesartan (BENICAR) 40 MG tablet, Take 1 (one) tablet (40 mg total) by mouth daily ., Disp: 90 tablet, Rfl: 1 pantoprazole (PROTONIX) 20 MG tablet, TAKE 1 TABLET BY MOUTH EVERY DAY, Disp: 90 tablet, Rfl: 3 polyethylene glycol (GLYCOLAX) 17 gram/dose powder, Take 17 (seventeen) g by mouth daily ., Disp: 1530 g, Rfl: 3 tiZANidine (Zanaflex) 4 MG tablet, Take up to 3 (three) tablets (12 mg total) by mouth at bedtime., Disp: 270 tablet, Rfl: 1 Past Medical History: Diagnosis Date Anemia Arrhythmia [...] History: Procedure Laterality Date ADENOIDECTOMY as an APPENDECTOMY CYST REMOVAL KNEE SURGERY Right 03/25/2018 Dr. Ramsay TONSILLECTOMY as an infant Social History Socioeconomic History Marital status: Tobacco Use Smoking status: Never Smokeless tobacco: Never Vaping Use Vaping status: Never Used Substance and Sexual Activity Alcohol use: Yes Alcohol/week: 5.0 standard drinks of alcohol Types: 5 Glasses of wine per week Drug use: Never Sexual activity: Yes Partners: Male control/protection: None Social Drivers of Health Financial Resource Strain: Low Risk (11/19/2022) Overall Financial Resource Strain (CARDIA) Difficulty of Paying Living Expenses: Not very hard Food Insecurity: No Food Insecurity (11/21/2023) Hunger Vital Sign Worried About Running Out of Food in the Last Year: Never true Ran Out of Food in the Last Year: Never true Transportation Needs: No Transportation Needs (11/21/2023) PRAPARE - Transportation Lack of Transportation (Medical): No Lack of Transportation (Non-Medical): No Physical Activity: Sufficiently Active (11/19/2022) Exercise Vital Sign Days of Exercise per Week: 4 days Minutes of Exercise per Session: 40 min Stress: No Stress Concern Present (11/19/2022) [employer] [place] [employer] - Occupational Stress Questionnaire Feeling of Stress : Not at all Social Connections: Unknown (11/21/2023) Social Connection and Isolation Panel [NHANES] Active Member of Clubs or Organizations: No Attends Club or Organization Meetings: Never Housing Stability: Unknown (11/19/2022) Housing Stability Vital Sign Unable to Pay for Housing in the Last Year: No Unstable Housing in the Last Year: No ROS: Review of Systems Constitutional: Negative for activity change and fatigue. HENT: Negative for congestion, hearing loss and trouble swallowing. Eyes: Neg (more content not included)...[facility] [id number] History of Present illness Narrative* Vania Gunter, MYLA - 04/06/2024 3:50 PM EST Images from the original note were not included. [facility] [address] [facility] [address] [facility] [id number] Chief Complaint Patient presents with Left Hand - Pain Teresa Cash, 48 year old female presents to the office today with complaints of a lump or bump on her left palm of the hand. She states that this started back in November and since then this hard nodule has continued to increase. She will on occasion have numbness or tingling into the ring and pinky fingers. Over the last couple of months though it has stayed the same size she does not feel as though it has continued to increase. She denies any injury to that right hand. She states that she has had a ganglion cyst on the opposite hand in the past. This is not painful all the time but can cause discomfort with pressure applied. The patient's past medical history, surgical history, social history, family history, medications and allergies were reviewed with the patient today and are available in the chart for further review. Allergies Allergen Reactions Apple Itching Erythromycin GI Intolerance Influenza Virus Vaccines GI Intolerance Maple Flavor Itching Pork Derived (Porcine) Itching Amoxicillin Rash Black Pepper Swelling and Rash Cephalexin Rash Clarithromycin Rash Garlic Swelling and Rash Penicillins Rash Current Outpatient Medications: cetirizine (ZYRTEC) 10 MG tablet, Take 1 (one) tablet (10 mg total) by mouth every evening ., Disp:, Rfl: cholecalciferol, vitamin D3, 5,000 unit Tab tablet, Take by mouth daily ., Disp: , Rfl: cyanocobalamin (B-12) 1000 MCG tablet, Take 5 (five) tablets (5,000 mcg total) by mouth daily ., Disp: , Rfl: estradioL (ESTRACE) 0.01 % (0.1 mg/gram) vaginal cream, APPLY SMALL AMOUNT DIRECTED VAGINALLY EVERY OTHER DAY X 4 WEEKS THEN TWICE A WEEK, Disp: , Rfl: ivermectin 1 % Crea, Apply topically ., Disp: , Rfl: meclizine (ANTIVERT) 25 mg tablet, Take 1 (one) tablet (25 mg total) by mouth 3 (three) times a dayas needed ., Disp: 30 tablet, Rfl: 2 olmesartan (BENICAR) 40 MG tablet, Take 1 (one) tablet (40 mg total) by mouth daily ., Disp: 90 tablet, Rfl: 1 pantoprazole (PROTONIX) 20 MG tablet, TAKE 1 TABLET BY MOUTH EVERY DAY, Disp: 90 tablet, Rfl: 3 polyethylene glycol (GLYCOLAX) 17 gram/dose powder, Take 17 (seventeen) g by mouth daily ., Disp: 1530 g, Rfl: 3 tiZANidine (Zanaflex) 4 MG tablet, Take up to 3 (three) tablets (12 mg total) by mouth at bedtime.,Disp: 270 tablet, Rfl: 1 Past Medical History: Diagnosis Date Anemia Arrhythmia [...] History: Procedure Laterality Date ADENOIDECTOMY as an APPENDECTOMY CYST REMOVAL KNEE SURGERY Right 03/25/2018 Dr. Ramsay TONSILLECTOMY as an Social History Socioeconomic History Marital status: Tobacco Use Smoking status: Never Smokeless tobacco: Never Vaping Use Vaping status: Never Used Substance and Sexual Activity Alcohol use: Yes Alcohol/week: 5.0 standard drinks of alcohol Types: 5 Glasses of wine per week Drug use: Never Sexual activity: Yes Partners: Male control/protection: None Social Drivers of Health Financial Resource Strain: Low Risk (11/19/2022) Overall Financial Resource Strain (CARDIA) Difficulty of Paying Living Expenses: Not very hard Food Insecurity: No Food Insecurity (11/21/2023) Hunger Vital Sign Worried About Running Out of Food in the Last Year: Never true Ran Out of Food in the Last Year: Never true Transportation Needs: No Transportation Needs (11/21/2023) PRAPARE - Transportation Lack of Transportation (Medical): No Lack of Transportation (Non-Medical): No Physical Activity: Sufficiently Active (11/19/2022) Exercise Vital Sign Days of Exercise per Week: 4 days Minutes of Exercise per Session: 40 min Stress: No Stress Concern Present (11/19/2022) [employer] [place] [employer] - Occupational Stress Questionnaire Feeling of Stress : Not at all Social Connections: Unknown (11/21/2023) Social Connection and Isolation Panel [NHANES] Active Member of Clubs or Organizations: No Attends Club or Organization Meetings: Never Housing Stability: Unknown (11/19/2022) Housing Stability Vital Sign Unable to Pay for Housing in the Last Year: No Unstable Housing in the Last Year: No ROS: Review of Systems Constitutional: Negative for activity change and fatigue. HENT: Negative for congestion, hearing loss and trouble swallowing. Eyes: Negative for visual disturbance. Respiratory: Negative for chest tightness and shortness of breath. Cardiovascular: Negative for chest pain and palpitations. Gastrointestinal: Negative for abdominal pain, diarrhea, nausea and vomiting. Endocrine: Negative for polydipsia, polyphagia and polyuria. Genitourinary: Negative for decreased urine volume, difficulty urinating and hematuria. Musculoskeletal: Negative for arthralgias, joint swelling and myalgias. Bump on left palm Skin: Negative for color change, rash and wound. Allergic/Immunologic: Negative for immunocompromised state. Neurological: Negative for dizziness, weakness, light-headedness and numbness. Hematological: Does not bruise/bleed easily. Psychiatric/Behavioral: Negative for confusion and sleep disturbance. The patient is not nervous/anxious. PE: Physical Exam Constitutional: Appearance: She is well-developed. HENT: Head: Normocephalic. Eyes: Pupils: Pupils are equal, round, and reactive to light. Cardiovascular: Rate and Rhythm: Normal rate and regular rhythm. Pulmonary: Effort: Pulmonary effort is normal. Breath sounds: Normal breath sounds. Abdominal: General: Bowel sounds are normal. Palpations: Abdomen is soft. Musculoskeletal: General: Tenderness and deformity present. Normal range of motion. Left hand: Tenderness present. No swelling. Normal range of motion. Normal sensation. Normal capillary refill. Normal pulse. Hands: Cervical back: Normal range of motion and neck supple. Comments: Palpable bump located along the 4th metacarpal extensor tendon Skin: General: Skin is warm and dry. Neurological: Mental Status: She is alert and oriented to person, place, and time. Imaging: L Hand: No acute fracture or dislocation. No osseous abnormality. Assessment/Plan: After examination and reviewing the patient x-ray images we discussed treatment options for that left hand. At this point in time I am ordering a MRI for further diagnostic evaluation of that nodule. I would like to see her back in the office to review those results and discuss further treatment options. documented in this [id number] NoteHNO ID: [id number] Author: YUNG FRANCIS PA-C Service: ? 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 Chronic left shoulder pain M25.512 CONSULT TO ORTHOPAEDICS G89.29 CONSULT TO PHYSICAL THERAPY 2. Cervical spondylosis without myelopathy M47.812 CONSULT TO PHYSICAL THERAPY Discussion: Ms. Cash is a pleasant 48-year-old female here for evaluation of neck pain and LEFT shoulder pain. This is chronic and has gone on for at least 3 years in the left shoulder and at least 2 years in the neck itself. She had x-rays done outside of [facility] in February but the films are not available for review. Reports only can be seen. She had been hospitalized for kidney failure in February. She takes tizanidine on a nightly basis to help with posttraumatic stress sleep issues. She has tried massage therapy, acupuncture, dry needling, soft cervical collar, cervical pillow, and cervical traction She describes primarily sharp neck pain and tightness with motion but she also describes diminished LUE range of motion in the shoulder itself. She describes shoulder pain on the deltoid portion of her shoulder EXAM Highlights: She has essentially normal neurologic exam today regarding mobilization, gait, stance, balance, sensation, reflexes throughout upper extremities. There is mild strength deficit noted in right triceps. She has age appropriate mild diminishment of cervical motion but she does have appreciable crepitus with motion. There is diminishment of shoulder motion on the left side and reproduction of lateral shoulder pain with that motion. IMAGING: Her cervical CT report indicated fairly severe DDD C3 through C7. There was some foraminal narrowing on the LEFT at C3-4 and this may possibly explain some of her symptoms along the lateral aspect of her shoulder. SUMMARY/PLAN: There is primarily a set of mechanical type symptoms without neurologic deficit. We would hold off on aggressive measures for treatment. She has nearly exhausted conservative treatment measures that can be done on her own at home I would try some supervised PT next and she could consider care mgr or osteopathic neuromuscular treatment in the future as well. I think she could benefit from further evaluation from orthopedics especially regarding her shoulder motion deficit issues. Her LEFT triceps weakness does not correlate with her C3-4 foraminal stenosis. Patient indicates that she has tried to diminish motion and exercise of her arm secondary to her shoulder pain and this may account for mild weakness noted below Plan : REFERAL FOR SERVICES: -Physical therapy will be instituted. -Referral to Orthopaedic Surgery for LEFT shoulder evaluation ACTIVITY RECOMMENDATIONS: -The patient is encouraged to avoid bed rest and maintain normal activity. -The patient is encouraged to exercise regularly as tolerated. FOLLOW-UP: -The patient is instructed to return as needed. ADDITIONAL DISCUSSION: -We discussed the difference between hurt vs harm as it relates to chronic pain. This document has been created with the use of voice recognition technology. It may contain inaccuracies: (e.g. misspellings, inaccurate syntax or word sense) that have escaped review. Time spent: 47 minutes today with this patient visit. This includes [id number] time, review of chart records regarding conservative care history, spine-pertinent imaging, and communication/care coordination with referring provider, problem-specific history-taking and counseling/education regarding treatment options. cc: SELF Phone: N/A Fax: Results of consultation to be transmitted via electronic medical record for those providers who practice within [facility] or with access to [employer] via [facility], or via letter. ######################################################################## CHIEF COMPLAINT: Patient is here for the neck pain, and left shoulder. Has this neck pain for 2 years and shoulder pain for 3 years- and it is getting worse. Level of the pain is at 2/10. Has sharp pain with movements. Has throbbing pain which is going up to the neck(behind the ear) from the left shoulder. Has a lot of tightness. 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02-20-2025 History of Present illness Narrative* Yung Francis PA-C - 04/01/2024 9:49 AM EST Images from the original note were not included. Yung Francis PA-C [facility] [address] [address] 04/01/2024 ASSESSMENT AND PLAN: Assessment : Encounter Diagnosis ICD-10-CM 1. Chronic left shoulder pain M25.512 CONSULT TO ORTHOPAEDICS G89.29 CONSULT TO PHYSICAL THERAPY 2. Cervical spondylosis without myelopathy M47.812 CONSULT TO PHYSICAL THERAPY Discussion: Ms. Cash is a pleasant 48-year-old female here for evaluation of neck pain and LEFT shoulder pain. This is chronic and has gone on for at least 3 years in the left shoulder and at least 2 years in the neck itself. She had x-rays done outside of [facility] in February but the films are not available for review. Reports only can be seen. She had been hospitalized for kidney failure in February. She takes tizanidine on a nightly basis to help with posttraumatic stress sleep issues. She has tried massage therapy, acupuncture, dry needling, soft cervical collar, cervical pillow, and cervical traction She describes primarily sharp neck pain and tightness with motion but she also describes diminishedLUE range of motion in the shoulder itself. She describes shoulder pain on the deltoid portion of her shoulder EXAM Highlights: She has essentially normal neurologic exam today regarding mobilization, gait, stance, balance, sensation, reflexes throughout upper extremities. There is mild strength deficit noted in right triceps. She has age appropriate mild diminishment of cervical motion but she does have appreciable crepituswith motion. There is diminishment of shoulder motion on the left side and reproduction of lateral shoulder painwith that motion. IMAGING: Her cervical CT report indicated fairly severe DDD C3 through C7. There was some foraminalnarrowing on the LEFT at C3-4 and this may possibly explain some of her symptoms along the lateral aspect of her shoulder. SUMMARY/PLAN: There is primarily a set of mechanical type symptoms without neurologic deficit. We would hold off on aggressive measures for treatment. She has nearly exhausted conservative treatment measures that can be done on her own at home I would try some supervised PT next and she could consider care mgr or osteopathic neuromuscular treatment in the future as well. I think she could benefit from further evaluation from orthopedics especially regarding her shoulder motion deficit issues. Her LEFT triceps weakness does not correlate with her C3-4 foraminal stenosis. Patient indicates that she has tried to diminish motion and exercise of her arm secondary to her shoulder pain and this may account for mild weakness noted below Plan : REFERAL FOR SERVICES: -Physical therapy will be instituted. -Referral to Orthopaedic Surgery for LEFT shoulder evaluation ACTIVITY RECOMMENDATIONS: -The patient is encouraged to avoid bed rest and maintain normal activity. -The patient is encouraged to exercise regularly as tolerated. FOLLOW-UP: -The patient is instructed to return as needed. ADDITIONAL DISCUSSION: -We discussed the difference between hurt vs harm as it relates to chronic pain. This document has been created with the use of voice recognition technology. It may contain inaccuracies: (e.g. misspellings, inaccurate syntax or word sense) that have escaped review. Time spent: 47 minutes today with this patient visit. This includes [id number] time, review of chart records regarding conservative care history, spine- pertinent imaging, and communication/care coordination with referring provider, problem-specific history-taking and counseling/education regarding treatment options. cc: SELF Phone: N/A Fax: Results of consultation to be transmitted via electronic medical record for those providers who practice within [facility] or with access to [employer] via MD Connect, or via letter. ######################################################################## CHIEF COMPLAINT: Patient is here for the neck pain, and left shoulder. Has this neck pain for 2 years and shoulder pain for 3 years- and it is getting worse. Level of the pain is at 2/10. Has sharp pain with movements. Has throbbing pain which is going up to the neck(behind the ear) from the left shoulder. Has a lot of tightness. 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 Had it about 3 years ago, didn't help. Spinal Injections: She has not gotten prior spinal injections. Other: Massage therapy Current Outpatient Medications Medication Sig Dispense Refill pantoprazole sodium (PANTOPRAZOLE ORAL) Take 20 mg by mouth once daily. Cyanocobalamin (VITAMIN B-12) 250 mcg tab Take by mouth. olmesartan (BENICAR) 40 mg tablet Take 40 mg by mouth once daily. tiZANidine (ZANAFLEX) 4 mg tablet Take 12 mg by mouth. cholecalciferol, vitamin D3, (VITAMIN D3 ORAL) Take by mouth once daily. cetirizine HCl (ZYRTEC ORAL) Take by mouth as needed. bupropion HCl (WELLBUTRIN ORAL) Take 450 mg by mouth once daily. No current facility-administered medications for this visit. Allergies: Clarithromycin and Erythromycin PAST MEDICAL HISTORY Diagnosis Date Essential hypertension Insomnia Seasonal allergies No past surgical history on file. Social History Tobacco Use Smoking status: Never Smokeless tobacco: Never Vaping Use Vaping status: Never Used Substance Use Topics Alcohol use: Yes Comment: social FAMILY HISTORY Problem Relation Age of Onset other (irregular heartbeat) Mother REVIEW OF SYSTEMS: Constitutional: (-) Fever/Chills (+) Night Sweats (-) Weight Gain (-) Weight Loss Gastrointestinal: (+) Abdominal Pain (-) Diarrhea (+) Constipation (+) Heart Burn medication helps Cardiovascular: (-) Chest Pain (+) Palpitations (-) Lightheadedness (-) Hx Heart Surgery/Stent Respiratory: (-) Short of Breath (-) Cough (+) Snoring Neurologic: (+) Headache (+) Blurry Vision (-) Fainting Skin: (+) Rashes (+) Itching (-) Other Lesions Psychiatric: (+) Depression (-) Anxiety (-) Suicidal Thoughts Genitourinary: (+) Frequency (+) Urgency Endocrine: (-) Thyroid Disorder (-) Diabetes Hematologic: (-) Prolonged Bleeding (+) Easy Bruising ################################################################################ ################################################# PHYSICAL EXAM: Blood pressure 144/88, pulse 68, height 172.7 cm (5' 8"), weight 76.8 kg (169 lb 5 oz), SpO2 98%. Body mass index is 25.74 kg/m . General: Patient is a(n) good historian. The patient appears approximately the recorded age and is sitting comfortably in the examining room. The patient is tall in stature and is average weight in appearance. This individual has no difficulty arising from a sitting position and does not have difficulty acquiring a full, upright position when standing. Station and Gait: Normal stance, normal gait. The patient is easily able to walk in a tandem gait. MENTAL STATUS EXAMINATION: The patient was well groomed and casually attired. The patient had good eye contact and rapport wasaverage to establish. The patient appeared to be alert and oriented in all spheres. The patient's overall medical judgment appeared to be good.The patient's motivation for treatment was judged based on today's encounter to be good. SPINE: Cervical Lordosis: Normal Thoracic Kyphosis: Normal Skin: Normal-no rashes, bruises, lesions, or signs of localized trauma., Skin color, texture and turgor normal. Paraspinal atrophy: No Range of Motion: Flexion: 2 fingerbreadths from chin to chest Pain: Yes Extension: limited with crepitation and pain Rotation: Right: limited with crepitation and pain Left: limited with crepitation and pain PALPATION TENDERNESS: Moderate tenderness at: cervical spine and shoulders/trapezius Hyperesthesia present: No Regional symptoms present: No Increased pain with axial loading: No Distraction: Normal Pain responses: appropriate NEUROLOGIC EXAM: Requires verbal cues to minimize cog-wheel or give-way resistance: No MOTOR: Deltoid R: 5/5 L: 5/5 Biceps R: 5/5 L: 5/5 Wrist Extension R: 5/5 L: 5/5 Wrist Flexion R: 5/5 L: 5/5 Triceps R: 5/5 L: 4/5 Guide Changer R: 5/5 L: 5/5 Interossei R: 5/5 L: 5/5 SENSATION to Light Touch: Cervical: C2-T2 symmetrically normal. Thoracic: T1-L1 symmetrically normal. Spurling's: Negative bilaterally. REFLEXES: Upper Extremity: All Upper Extremity reflexes symmetrically normal. Lower Extremity: All Lower Extremity reflexes symmetrically normal. Manjarrez's: Negative bilaterally. Clonus: R: 0 beats/Normal L: 0 beats/Normal Babinski Sign Present: Negative bilaterally. IMAGING STUDIES: See discussion above [facility] [address] [place] [address] Discharge Summary 02/16/24 1059 MR#: [id number] Acct: [id number] Name: TERESA CASH Rep #: [id number] : 1975 48 From: Ilya Peña MD PCP: GALILEA WHITAKER Status:ADM IN Location: [address] Providers Date of Admission: 02/14/24 Primary Care Physician: GALILEA WHITAKER Consultations 02/14/24 04:48 Consult: Nephrology Routine Consulting Provider: Criselda South Reason for Consult: GOPAL EMERGENT Consult: No MD Notified: Yes Date Notified: 02/14/24 Time Notified: 09:39 Method of Notification: Answering Service Reason For Visit: REBAK FAILURE Diagnosis Discharge Diagnosis (1) GOPAL (acute kidney injury): Status: Acute Code(s): N17.9 - Acute kidney failure, unspecified (2) Proteinuria: Status: Acute Code(s): R80.9 - Proteinuria, unspecified (3) Flank pain: Status: Acute Code(s): R10.9 - Unspecified abdominal pain Medications at Discharge Home Medications cholecalciferol (vitamin D3) 250 mcg (10,000 unit) capsule 250 mcg PO QWEEK REPLACEMENT 12/15/19 cyanocobalamin (vitamin B-12) 1,000 mcg capsule 1,000 mcg PO DAILY 12/15/19 olmesartan 20 mg tablet (Benicar) 20 mg PO DAILY 12/15/19 cetirizine 10 mg capsule (Zyrtec) 10 mg PO DAILY PRN allergic symptoms 11/16/21 ondansetron 4 mg disintegrating tablet 4 mg PO Q8H PRN PRN Nausea #10 tabs 04/20/23 estradiol 0.01% (0.1 mg/gram) vaginal cream See Rx Instructions vaginal .COMPLEX #42.5 grams 01/27/24 pantoprazole 20 mg tablet,delayed release 20 mg PO DAILY 02/14/24 spironolactone 50 mg tablet 50 mg PO DAILY 02/14/24 tizanidine 4 mg tablet 0 - 12 mg PO QHS 02/14/24 Hospital Course Operations None Procedures None Summary of Care Provided Minutes Spent on Discharge: 36 Hospital Course: Per HPI: TERESA CASH, is a 48 F who presented to the emergency department at [facility] on 02/14/2024 with a chief complaint of flank pain. Patient states that for several months now she has been having epigastric abdominal pain and mid abdominal pain every time she eats. She follows with gastroenterology and has appointment upcoming in March. She has asked them about this and they told her it was probably her new medications. At this point the medications were started sometime ago she states. She stated initially she lost quite a bit of weight because she had been able to eat as much for the last several weeks she has gained back 25 pounds. She is not having any swelling. She reported that she was feeling fairly close to her baseline and went out to dinner and was able to tolerate dinner without a problem. She was able to have a glass of wine and then went home and started having back pain that was bilateral flanks. She thought that she had some muscular irritation so she soaked in the bathtub and took 2 ibuprofen but the pain persisted and slowly worsened. She stated some of the most severe pain she is ever had so she came emergency department to be evaluated. She indicated the pain was so horrible that she had vomiting. She said no other nausea, vomiting or diarrhea today. She has no known fever or chills. She has had no rashes. She has not been on any antibiotics or had any viral illnesses/bacterial illnesses lately. She been on Protonix for considerable amount of time and takes Aldactone for hair loss and olmesartan for her blood pressure. She states she has been urinating more volume than usual and seems to have more frequency. She is having some urination at night which is atypical for her. She does states she also has constipation issues at baseline but seems like it is more significant lately. She has had no rashes. Patient denies any supplement use. Vital signs on presentation showed a temperature of 97.8, heart rate 98, blood pressure 140/76 respiratory rate 18 and pulse ox was 98% on room air. Her CBC was unremarkable except for left shift with a 77.8% neutrophilia. Chemistry panel had normal electrolytes but her BUN was 35 and her serum creatinine was 2.85. Serum glucose was 150 nonfasting. Liver function was unremarkable. Lipase was normal at 58. Her UA showed a specific gravity 1.01. She had 500 protein in her urine with small glucose and occult blood but no white cells red cells or bacteria were noted. Urine sodium was 59. CT of the abdomen pelvis shows bilateral nephritic stranding that is nonspecific and can be seen with acute processes such as pyelonephritis or other inflammatory processes, she had no urolithiasis or hydronephrosis. No other abnormalities were noted. She was given pain medication and IV fluids in the emergency department and given the severity of her renal dysfunction request for admission was made. Hospital Course: 1. GOPAL with proteinuria and abdominal pain/essential HTN??? (more content not included)...[facility]12-17-2024 Evaluation note* Diagnosis Onset Date Resolution Status Admit Date Atrophic vaginitis inactive [facility] 2023 8:27am Family history of bladder cancer inactive January 26, 2 024 8:27am Family history of breast cancer inactive January 26 024 8:27am Family history of colon cancer in father inactive January 27, 2024 8:27am Fatigue inactive January 27, 2024 8:27am Encounter for routine gynecological examination noneactive [facility] 2023 8:27am GOPAL (acute kidney injury) acute February 14, 2024 4:05am Flank pain acute February 13, 2 025 4:05am Proteinuria acute February 14, 2024 4:05am [facility] Work Phone: 1(214) 786-455010-11-2024 History of Present illness Narrative* Galilea Whitaker, [facility] - 11/21/2023 1:09 PM EDT Subjective: Patient ID: Teresa Cash is a 47 y.o. female. HPI Teresa presents today for chronic disease management Relates that she did get the call about TDaP from 2016, she does not wish to redo this vaccination. She continues to follow with psychiatry- she is hoping to stop Wellbutrin as she feels like maybe she is less alert. She states that she was prescribed Rozerem but hasn't started it yet. She actuallystopped all meds for about 1 week and states that she slept better and felt better overall. She hasrestarted pantoprazole and olmesartan. She denies CP/SOB, denies Gómez/dizziness She states that she didn't take any medication today. She noticed a small cyst on her left hand recently- slightly tender, denies radiation of pain or numbness/discomfort in hand. She would like repeat CBC today She continues to struggle with constipation. She does not take miralax consistently. She does feel better overall and her appetite is normal. Past Medical History: Diagnosis Date Anemia Arrhythmia [...] History: Procedure Laterality Date ADENOIDECTOMY as an APPENDECTOMY CYST REMOVAL KNEE SURGERY Right 03/25/2018 [...] very hard Food Insecurity: No Food Insecurity (11/21/2023) Hunger Vital Sign Worried About Running Out of Food in the Last Year: Never true Ran Out of Food in the Last Year: Never true Transportation Needs: No Transportation Needs (11/21/2023) PRAPARE - Transportation Lack of Transportation (Medical): No Lack of Transportation (Non-Medical): No Physical Activity: Sufficiently Active (11/19/2022) Exercise Vital Sign Days of Exercise per Week: 4 days Minutes of Exercise per Session: 40 min Stress: No Stress Concern Present (11/19/2022) [employer] [place] [employer] - Occupational Stress Questionnaire Feeling of Stress : Not at all Social Connections: Unknown (11/21/2023) Social Connection and Isolation Panel [NHANES] Active Member of Clubs or Organizations: No Attends Club or Organization Meetings: Never Housing Stability: Unknown (11/19/2022) Housing Stability Vital Sign Unable to Pay for Housing in the Last Year: No Unstable Housing in the Last Year: No Current Outpatient Medications: ramelteon (ROZEREM) 8 mg tablet, Take 1 (one) tablet (8 mg total) by mouth nightly as needed ., Disp: , Rfl: spironolactone (ALDACTONE) 50 MG tablet, TAKE ONE TABLET ONCE DAILY AT NIGHT WITH A FULL GLASS OF WATER., Disp: , Rfl: albuterol (Ventolin HFA) 90 mcg/actuation inhaler, Inhale 2 (two) puffs every 6 (six) hours as needed for wheezing ., Disp: 18 g, Rfl: 1 buPROPion (WELLBUTRIN XL) 150 MG 24 hr tablet, Take 3 (three) tablets (450 mg total) by mouth dailyIN THE MORNING ., Disp: , Rfl: cetirizine (ZYRTEC) 10 MG tablet, Take 1 (one) tablet (10 mg total) by mouth every evening ., Disp:, Rfl: cholecalciferol, vitamin D3, 5,000 unit Tab [...] daily ., Disp: 90 tablet, Rfl: 1 pantoprazole (PROTONIX) 20 MG tablet, Take 1 (one) tablet (20 mg total) by mouth daily ., Disp: 30 tablet, Rfl: 11 polyethylene glycol (GLYCOLAX) 17 gram/dose powder, Take 17 (seventeen) g by mouth daily ., Disp: 1530 g, Rfl: 3 tiZANidine (Zanaflex) 4 MG tablet, Take up to 3 (three) tablets (12 mg total) by mouth at bedtime.,Disp: 270 tablet, Rfl: 1 BP 133/83 (BP Location: Left arm, BP Cuff Size: Adult) Temp 97.9 F (36.6 C) Wt 70.3 kg (155 lb) SpO2 97% BMI 24.33 kg/m Review of Systems Constitutional: Negative for appetite change, chills, fatigue, fever and unexpected weight change. HENT: Negative for trouble swallowing. Eyes: Negative. Negative for visual disturbance. Respiratory: Negative for cough and shortness of breath. Cardiovascular: Negative for chest pain, palpitations and leg swelling. Gastrointestinal: Positive for constipation (chronic, no change). Negative for abdominal pain, diarrhea and nausea. Musculoskeletal: Negative for arthralgias, back pain, joint swelling and myalgias. Lump on left palm Skin: Negative. Neurological: Negative for dizziness and headaches. Hematological: Negative. Psychiatric/Behavioral: Positive for [...] Breath sounds: Normal breath sounds. Musculoskeletal: Left hand: Deformity (approx 3 mm cyst in palm) present. Normal range of motion. Normal strength. Normal sensation. Cervical back: Normal range of motion and neck supple. Right lower leg: No edema. Left lower leg: No edema. Skin: General: Skin is warm and dry. Neurological: Mental Status: She is alert and oriented to person, place, and time. Psychiatric: Mood and Affect: Mood normal. Behavior: Behavior normal. Assessment/Plan: Diagnoses and all orders for this visit: Essential hypertension Comments: Stable- encouraged daily use. Discussed low Na diet. Will continue olmesartan daily Orders: - CBC and Differential; Future - Comprehensive Metabolic Panel; Future - Iron Study with Ferritin; Future Chronic constipation Comments: encouraged consistent miralax. Encouraged fiber intake. Chronic migraine without aura without status migrainosus, not intractable Comments: Continue current regimen. Remains stable. Denies need for refills Cyst of joint of left hand Comments: currently slightly tender, but no weakness/pain. Will monitor for now- if increasing in size/painful, will get to hand specialist. I am managing Teresa Cash for complex chronic condition(s) serving as the focal point for the patient's care for consistency and continuity over time. Over the last 2 weeks, how often have you been bothered by any of the following problems? Little interest or pleasure in doing things Not at all Feeling down, depressed, or hopeless Not at all PHQ-2 Total Score 0 Trouble falling or staying asleep, or sleeping too much Nearly every day Feeling tired or having little energy Several days Poor appetite or overeating Several days Feeling bad about yourself - or that you are a failure or have let yourself or your family down Notat all Trouble concentrating on things, such as reading the newspaper or watching television Not at all Moving or speaking so slowly that other people could have noticed. Or the opposite - being fidgety or restless that you have been moving around a lot more than usual Not at all Thoughts that you would be better off , or hurting yourself in some way Not at all PHQ-9 Total Score 5 If you checked off any problems, how difficult have these problems made it for you to do your work,take care of things at home, or get along with other people? Not difficult at all documented in this [id number] History of Present illness Narrative* Galilea Whitaker CNP - 05/27/2023 10:38 AM EDT Subjective: Patient ID: Teresa Cash is a 47 y.o. female. HPI Teresa presents today for CPE: Last Colonoscopy : 11/05/22 Tzagojustineis- repeat 5 years Last Mammogram : 2022- [place] Last PAP : 12/15/19 Marcanthony Last Stress Test: 02/07/16 normal Immunizations: TDaP: 04/07/22 COVID: 05/12/20, 06/05/20 declines Last CXR: 06/24/19 Optho: [facility] Dentist: Q6 months GI: Tzagournis 01/30/23- f/u 1 year Rheum: Lozoya 01/08/23- recommended PT- went once Derm: Janelle Relates that she is doing well. 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 She denies Cp/SOB, denies Gómez/dizziness She actually did not take her meds today- she states that she knows when her bp is high because of how she feels. States taking consistently She states that she has struggled with her bowels still. Going 5-7 days between BMs. Denies blood in stool. Has noticed that she is eating more carbs and bland food- she states that when she does have to have a BM it can be incredibly painful cramping. She states miralax helps but she isn't consistent with it. She states urinating without a problem She is fasting today Past Medical History: Diagnosis Date Anemia Arrhythmia [...] Right 03/25/2018 Dr. Ramsay TONSILLECTOMY as an infant Family History Problem Relation Age of Onset [...] min Stress: No Stress Concern Present (11/19/2022) [employer] [place] [employer] - Occupational Stress Questionnaire Feeling of Stress : Not at all Social Connections: Socially Isolated (11/19/2022) Social Connection and Isolation Panel [NHANES] Frequency of Communication with Friends and Family: Never Frequency of Social Gatherings with Friends and Family: Never Attends Protestant Services: Never Active Member of Clubs or [...] (three) tablets (450 mg total) by mouth dailyIN THE MORNING ., Disp: , Rfl: cetirizine (ZYRTEC) 10 MG tablet, Take 1 (one) tablet (10 mg total) by mouth every evening ., Disp:, Rfl: cholecalciferol, vitamin D3, 5,000 unit Tab [...] topically ., Disp: , Rfl: pantoprazole (PROTONIX) 20 MG tablet, Take 1 (one) tablet (20 mg total) by mouth daily ., Disp: 30 tablet, Rfl: 11 polyethylene glycol (GLYCOLAX) 17 gram/dose powder, Take 17 (seventeen) g by mouth daily ., Disp: 1530 g, Rfl: 3 olmesartan (BENICAR) 40 MG tablet, Take 1 (one) tablet (40 mg total) by mouth daily ., Disp: 90 tablet, Rfl: 1 tiZANidine (Zanaflex) 4 MG tablet, Take up to 3 (three) tablets (12 mg total) by mouth at bedtime.,Disp: 270 tablet, Rfl: 1 BP 119/75 (BP Location: Left arm, BP Cuff Size: Adult) Pulse (!) 56 Temp 97.9 F (36.6 C) Ht 5' 6.93" Wt 66.2 kg (146 lb) SpO2 97% BMI 22.92 kg/m Review of Systems Constitutional: Negative for appetite change, chills, fatigue, fever and unexpected weight change. HENT: Negative for congestion, dental problem, rhinorrhea, sore throat and trouble swallowing. Eyes: Negative. Negative for visual disturbance. Respiratory: Negative for apnea, cough and shortness of breath. Cardiovascular: Negative for chest pain, palpitations and leg swelling. Gastrointestinal: Positive for constipation. Negative for abdominal distention, blood in stool, diarrhea, nausea and rectal pain. Endocrine: Negative. Genitourinary: Negative for difficulty urinating, dysuria, frequency, menstrual problem and urgency. Musculoskeletal: Negative for arthralgias, back pain, joint swelling and myalgias. Neurological: Positive for light-headedness. Negative for dizziness, syncope, numbness and headaches. Hematological: Negative. Psychiatric/Behavioral: Positive for sleep disturbance (not new/changed). Negative for dysphoric mood. The patient is not nervous/anxious. Objective: Physical Exam Vitals reviewed. Constitutional: Appearance: She is well-developed. HENT: Head: Normocephalic and atraumatic. Right Ear: Hearing, tympanic membrane, ear canal and external ear normal. Left Ear: Hearing, tympanic membrane, ear canal and external ear normal. Nose: Nose normal. Mouth/Throat: Lips: [place]. Mouth: Mucous membranes are moist. Pharynx: Uvula [...] normal. Speech: Speech normal. Behavior: Behavior normal. Thought Content: Thought content normal. Cognition and Memory: Cognition normal. Assessment/Plan: Diagnoses and all orders for this visit: Annual physical exam Comments: Reviewed PMH, PSH, FMH, social hx. Discussed preventative needs and immunizations. labs today. [employer] for PAP and Mammo Orders: - CBC and Differential; Future - Comprehensive Metabolic Panel; Future - Lipid Panel; Future - POC Urinalysis Dipstick Essential hypertension Comments: Stable, continue current regimen. Encouraged low Na diet- monitor for hypotension with weight loss Orders: - olmesartan (BENICAR) 40 MG tablet; Take 1 (one) tablet (40 mg total) by mouth daily . Chronic migraine without aura without status migrainosus, not intractable Comments: Stable at this time. Continue current regimen Orders: - tiZANidine (Zanaflex) 4 MG tablet; Take up to 3 (three) tablets (12 mg total) by mouth at bedtime. Vitamin D deficiency Comments: checking levels and will adjust plan as appropriate Orders: - Vitamin D, Total, 25-OH; Future Vitamin B12 deficiency Comments: checking levels and will adjust plan as appropriate Orders: - Vitamin B12; Future I am managing Teresa Cash for complex chronic condition(s) serving as the focal point for the patient's care for consistency and continuity over time. documented in this [id number] History of Present illness Narrative* Alida Owens, PT - 01/14/2023 5:24 PM EST Program_ID:[id number] Access Code: [email or web address] URL: [email or web address] Date: 01-14-2023 Prepared By: Alida Owens Program Notes Exercises - Straight Leg Raise [...] 7 x weekly - 2-3 - 5 * Alida Owens, PT - 01/14/2023 4:06 PM EST Program_ID:[id number] Access Code: [email or web address] URL: [email or web address] Date: 01-14-2023 Prepared By: Alida Owens Program Notes Exercises - Straight Leg Raise [...] 7 x weekly - 2-3 - 5 * Alida Owens, PT - 01/14/2023 3:41 PM EST Episode Visit Count: 1 Therapist That Will Accept/Oversee The Plan Of Care: Alida Owens Start of Care Date: 01/14/23 Onset Date: (chronic) Plan of Care Certification Date: 01/14/23 Next Certification Due Date: 02/18/23 Patient Identified by Name and Date of : Yes REHABILITATION AND SPORTS THERAPY PHYSICAL THERAPY EVALUATION PLAN OF CARE: Assessment: Teresa M Shreya presents with diagnosis of benign joint hypermobility syndrome, pain in joint that interferes with squatting, lifting, stair negotiation, weight bearing (more difficulty with descending steps as compared to ascending steps) . She presents with impairments in ADL's, indep endence in exercise, overall function, patient reported outcome [...] of Care: created on 01/14/23 through 02/18/23 [place] in home exercise program. Patient will demonstrate increase in bilateral quadriceps strength to 5/5 during manual muscle testing in order to improve function for prior functional tasks. Reciprocal stair negotiation. Patient will demonstrate improved neuromuscular coordination as evidenced by completion of 8" step down without no UE support. Patient Goals: BLE knee pain and instability. pt would like to improe stability strength. Planned Interventions, Frequency, and Duration: Current Frequency: 1x/week Duration: 5 weeks Total Number of Visits Planned: 5 Planned Treatment Interventions: Therapeutic exercise (20526), Neuromuscular re- education (30190), Manual therapy (69624), Therapeutic activities (85444), Self- shelter management (33299), Gait Training (13390) PLAN FOR NEXT VISIT: progress to added [...] lifting, stair negotiation, weight bearing (more difficulty withdescending steps as compared to ascending steps) Prior [...] Learning TREATMENT: PT Treatment Interventions: Therapeutic Exercise, Self-Longterm Management Evaluation Therapeutic Exercise: 1: *Access Code: [email or web address] URL: [email or web address] Date: 01/14/2023 Prepared by: Alida Grullon Exercises - Straight Leg Raise with External [...] - 2-3 sets - 5 reps - 3hold Skilled Intervention: Patient was educated in proper [...] and function . Patient education as noted. Self-Longterm Management: 1: discussed hip strengthening as it relates to the stability of the distal knee joints to assist in reducing rotational instability at the knee 2: discussed the role of the VMO as it relates to patellar tracking 3: discussed that HEP is currently in supine/SL positions to offer external joint support and avoidexcessive force on the joints while providing knee [...] Time : 1538 Session Stop Time : 1622 Alida Owens PT documented in this encounterM[facility]11-29-2023 History of Present illness Narrative* Alyce Diaz, RT(R) - 01/08/2023 1:30 PM EST Radiology Service Progress Note PATIENT NAME: Teresa Cash DATE OF SERVICE: January 08, 2023 TIME: 1:13 PM PATIENT IDENTITY VERIFICATION COMPLETED USING TWO (2) IDENTIFIERS: Name and Date of confirmedby patient verbally. FALL SCREENING: Has the patient had 2 falls in the last year or 1 fall with injury or currently using an Ambulatory Assistive Device (Walker, Cane, Wheelchair, Crutches, etc.)? No PATIENT GENDER DATA: Female. status: : No status: NO. PATIENT RELEVANT IMPLANT DATA REVIEWED: Not Applicable RADIOLOGY DEPARTMENT: General X-ray: Exam(s) Completed: Upper Extremity X- Ray(s): Hand, bilateral PERIPHERAL IV DATA: Not applicable SIGNED BY: RT Ray(R) January 08, 2023 1:13 PM documented in this encounterMckitrick Hospital10-10-2023 History of Present illness Narrative* Galilea Whitaker, [facility] - 11/19/2022 11:14 AM EDT Subjective: Patient ID: Teresa Cash is a 46 y.o. female. PERCY Moore presents today for chronic disease management She did her colonoscopy and Upper GI 11/05/22; repeat colonoscopy in 5 years. UGI showed erythemic gastritis. Dr. Robbins started her on protonix daily for 3 months and then f/u in 3 months. She feels like it is helping and she is happy she knows what is wrong. She states that she still has abdominal pain, but less. She has taken no meds today. She states that her BP has been "normal" at home. She has occasional PVCs but denies CP/SOB States left shoulder and clavicle pain- she states that she is seeing ortho in [place]- she is concerned because she feels like it is popping out. She also has dislocated her knees multiple times andright hip goes out at times. She is [...] Right 03/25/2018 Dr. Ramsay TONSILLECTOMY as an infant Family History Problem Relation Age of Onset [...] min Stress: No Stress Concern Present (11/19/2022) [place] of Occupational [employer] - Occupational Stress Questionnaire Feeling of Stress : Not at all Social Connections: Socially Isolated (11/19/2022) Social Connection and Isolation Panel [NHANES] Frequency of Communication with Friends and Family: Never Frequency of Social Gatherings with Friends and Family: Never Attends Protestant Services: Never Active Member of Clubs or [...] (three) tablets (450 mg total) by mouth dailyIN THE MORNING ., Disp: , Rfl: cetirizine (ZYRTEC) 10 MG tablet, Take 1 (one) tablet (10 mg total) by mouth every evening ., Disp:, Rfl: cholecalciferol, vitamin D3, 5,000 unit Tab [...] by mouth at bedtime.,Disp: 270 tablet, Rfl: 1 BP 131/88 (BP Location: Right arm, Patient Position: Sitting, BP Cuff Size: Adult) Pulse 61 Temp 98.3 F (36.8 C) (Oral) Ht 5' 7" Wt 74.4 kg (164 lb) SpO2 95% [...] labs today and will place referral to [facility] rheumatology Chronic migraine without aura without status [...] on recent upper GI- following with Dr. Robbins- some improvement with protonix- f/u in January. [...] let yourself or your family down 0 00 Trouble concentrating on things, such as reading [...] Not difficult at all documented in this [id number] History of Present illness Narrative* Galilea Whitaker CNP - 09/27/2022 4:26 PM EDT Subjective: Patient ID: Teresa Cash is a 46 y.o. female. HPI Teresa presents today for acute concerns Relates that she has been having intermittent pain after eating for some time- doesn't always happen. About 2 weeks ago she was out with her - they had dinner and shared a bottle of wine. 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 It will bein RUQ and radiate to the center, sometimes bilateral. She has chronic constipation, but no recent changes. She is scheduled for EGD and colonoscopy with Dr. Robbins in October. Past Medical History: Diagnosis Date [...] mg total) by mouth every evening ., Disp:, Rfl: cholecalciferol, vitamin D3, 5,000 unit Tab [...] by mouth at bedtime.,Disp: 270 tablet, Rfl: 1 sod sulf-pot chloride-mag [...] US Abdomen Complete; Future documented in this [id number] History of Present illness Narrative* Galilea Whitaker CNP - 05/21/2022 1:10 PM EDT Images from the original note were not included. Subjective: Patient ID: Teresa Cash is a 46 y.o. female. PERCY Moore presents today for CPE: Last Colonoscopy : 08/05/19 [place]- repeat 3 years- will contact them to schedule Last Mammogram : 12/28/21 [place] Last PAP : [facility]- UTD Last Stress Test: echo 05/07/21- EF 71% normal Immunizations: TDaP: 04/07/22 COVID: 05/12/20, 06/05/20, declines FLU: allg Last CXR: 06/24/19- normal Optho: [facility] Dentist: Q6 months Sleep: Dr. Alexander 01/11/22- f/u 09/18/22- prescribed gabapentin- she is self weaning- felt made depressed Derm: Dr Luis- 10/22/21 Cardio: Dr. Gregorio 05/28/21-referral to sleep med Denies CP/SOB, denies Gómez. 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 and growing- though admits her allergies get very bad- she did not follow up with that blind installer- going to look for new provider close [...] mg total) by mouth every evening ., Disp:, Rfl: cholecalciferol, vitamin D3, 5,000 unit Tab tablet, Take by mouth daily ., Disp: , Rfl: cyanocobalamin (B-12) 1000 MCG tablet, Take 5 (five) tablets (5,000 mcg total) by mouth daily ., Disp: , Rfl: fexofenadine (SUSANA) 180 MG tablet, Take 1 (one) tablet [...] tablet (150 mg total) by mouth daily INTHE MORNING ., Disp: , Rfl: fluconazole (DIFLUCAN) 150 MG tablet, TAKE ONE TABLET BY MOUTH ONCE A SINGLE DOSE, Disp: , Rfl: gabapentin (NEURONTIN) 100 MG capsule, TAKE 1 CAPSULE BY MOUTH AT DINNER AND 2 CAPSULES BY MOUTH ATBEDTIME, Disp: , Rfl: meclizine (ANTIVERT) 25 mg [...] by mouth at bedtime.,Disp: 270 tablet, Rfl: 1 BP 133/86 (BP Cuff Size: Adult) Pulse (!) 52 Temp 98.1 F (36.7 C) Ht 5' 7.09" Wt 78.8 kg (173 lb 11.2 oz) [...] abdominal distention, blood in stool, constipation, diarrhea, nauseaand rectal pain. Endocrine: Negative. Genitourinary: Negative for [...] canal reddened Nose: Nose normal. Mouth/Throat: Lips: [place]. Mouth: Mucous membranes are moist. Pharynx: Uvula [...] needs and immunizations. Labs today. Pap through [facility] Orders: - CBC and Differential; Future - [...] continue PRN Meclizine. recommend establishing with new blind installer. Orders: - meclizine (ANTIVERT) 25 mg tablet; Take 1 (one) tablet (25 mg total) by mouth 3 (three) times a day as needed . - Magnesium Level; Future Psychophysiological insomnia Comments: Following consistently with sleep med- self weaned off of gabapentin- will follow with sleep med for next plan- continue tizanidine. documented in this [id number] Miscellaneous Notes* Telephone Encounter - Marleny Fuller MA - 04/16/2022 4:42 PM EST Physician: No primary care provider on file. [...] Yes Marleny Fuller MA documented in this encounterM[facility] Hospital02-26-2023 Hospital Discharge instructions Additional Instructions Have your sutures removed in 5 to 7 days. Make sure you ice your lip.[facility] Work Phone: 1(363) 391-306012-02-2022 Instructions* Patient Instructions* Byron Alexander MD - 01/11/2022 11:47 AM [...] improved Byron Alexander MD documented in this encounterM[facility]12-02-2022 History of Present illness Narrative* Byron Alexander MD - 01/11/2022 11:30 AM EST Images from the original note were not included. [facility] Follow up/ Established patient [...] screaming (or shouting), most with movements of thearms (such as hitting out), most with brief (5-10 minute) post arousal confusion and agitation (notpost- ictal), and some with pressurized dream content. None [...] followed by MSLT. Those results will follow. detention treatment will depend on these results and [...] or near accidents due to drowsy drivin [place] Sleepiness Scale 08/01/2021 01/11/2022 Score 3 (No daytime sleepiness) 2 (No daytime sleepiness) PROMIS CAT Sleep Disturbance 08/01/2021 01/11/2022 PROMIS Sleep Disturbance T-Score 63 (moderate) 52 (within normal limits) Insomnia Severity Index 08/01/2021 Score 20 PHQ-9 08/01/2021 01/11/2022 Score 9 9 PROMIS Global Health - (T-Scores - the mean of general population = 50. Five points is a clinicallymeaningful difference.) 08/01/2021 01/11/2022 Physical T-Score 39.8 44.9 [...] by mouth once daily.^Disp: ^Rfl: fexofenadine HCl (SUSANA ORAL)^Take by mouth as needed. ^Disp: ^Rfl: cetirizine HCl (ZYRTEC ORAL)^Take by mouth once daily.^Disp: ^Rfl: Prior Hypersomnia/Narcolepsy Medications (20 years) Some values may be hidden. Unless noted otherwise, only the newest values recorded on each date aredisplayed. Hypersomnia/Narcolepsy Medications No data to display. Prior RLS Medications (last 20 years) Some values may be hidden. Unless noted otherwise, only the newest values recorded on each date aredisplayed. RLS Medications No data to display. Prior Insomnia Medications (last 20 years) Some values may be hidden. Unless noted otherwise, only the newest values recorded on each date aredisplayed. Insomnia Medications No data to display. PHYSICAL [...] improved Byron Alexander MD documented in this encounterMckit[facility] Hospital10-05-2022 Procedure note* Raeann Gutierrez, PhD - 11/14/2021 3:05 PM EDTAssociated Order(s): ACTIGRAPHY TESTING Actigraphy Report Template Results: Actigraphy/sleep [...] Circadian Rhythm appropriate. Procedure: Actigraphy (CPT code 50389) Reason for study: hypersomnia-MSLT planned Length of study: This study was performed for: 2 weeks Dates of Actigraphy study: From 10/27/2021 To 11/12/2021 Technical quality of the recording: An Actigraphy GTX was used for this study. There were no apparent technical issues with the recording. All data were used in sleep scoring andanalysis Using the Mark Kripke algorithm, data was [...] average bedtime of 10:51PM, with a range of8:55PM to 1:49AM. Wake up times were not [...] duration prior to MSLT, and inconsistencies between self-reportedtimes and sleep estimated by actigraphy (for sleep onset latency) Burna : Raeann Gutierrez, PhD, [facility] Psychologist ([place] License P.[id number]) Behavioral Sleep Medicine Disclosure: There are limitations of actigraphy data. This test is not a measure of daytime sleepiness or insomnia. Findings may suggest the etiology of sleepiness due to an observed pattern or help in the understanding of patterns associated with conditions being evaluated documented in this encounterMckitrick Hospital10-05-2022 History of Present illness Narrative* Aubrey Argueta - 11/14/2021 3:24 AM EDT Sleep Study Check-In Documentation Date: November 14, 2021 Name: Teresa Cash Patient was accompanied by Self. Location: Latex allergy: No Tape allergy: No Current medications were reviewed with the patient:Yes Sleep aid taken by patient for the sleep study: [place] of sleep aid: Not Applicable Procedure was explained to the patient and all questions were answered. PAP treatment discussed and shown to patient: Yes Knowledge Program (KP): KP was not completed in [facility] by patient and accepted Study type: Double study-Polysomnogram with extra EEG Adverse Event: No (If yes create a new abstract) SERS Event: No Comments: Patient was advised to follow up with their ordering provider regarding test results Aubrey Argueta documented in this encounterMckitrick Hospital09-16-2022 History of Present illness Narrative* Snow Castro - 10/26/2021 3:25 PM EDT ACTIGRAPHY DEVICE # [id number] Date shipped out 10/26/2021 [employer] MAIL OUT TRACKING NUMBER [id number] [employer] RETURN TRACKING NUMBER [id number], Gina documented in this encounterMckitrick Hospital06-23-2022 History of Present illness Narrative* Byron Alexander MD - 08/02/2021 11:05 AM EDT Images from the original note were not included. [facility] New Patient Evaluation PATIENT NAME: Teresa Cash DATE OF SERVICE: August 02, 2021 CONSULTING PROVIDER: Judson Newman [facility] [address] [facility] [address] [address] CC: Night terrors HPI: Teresa Cash is [...] After 5 minutes, in general, she is ableto fall back to sleep. SLEEP-WAKE SCHEDULE She [...] population = 50. Five points is a clinicallymeaningful difference.) 08/01/2021 Physical T-Score 39.8 Mental T-Score 50.8 [place] Sleepiness Scale Sitting and Reading? slight chance [...] Last study was 20 years ago in [place]. OTHER RELEVANT LABS AND STUDIES: PAST MEDICAL [...] Take by mouth once daily. fexofenadine HCl (SUSANA ORAL) Take by mouth as needed. cetirizine HCl (ZYRTEC ORAL) Take by mouth once daily. Prior Hypersomnia/Narcolepsy Medications (20 years) Some values may be hidden. Unless noted otherwise, only the newest values recorded on each date aredisplayed. Hypersomnia/Narcolepsy Medications No data to display. Prior RLS Medications (last 20 years) Some values may be hidden. Unless noted otherwise, only the newest values recorded on each date aredisplayed. RLS Medications No data to display. Prior Insomnia Medications (last 20 years) Some values may be hidden. Unless noted otherwise, only the newest values recorded on each date aredisplayed. Insomnia Medications No data to display. Review [...] screaming (or shouting), most with movements of thearms (such as hitting out), most with brief (5-10 minute) post arousal confusion and agitation (notpost- ictal), and some with pressurized dream content. None [...] followed by MSLT. Those results will follow. detention treatment will depend on these results and will likely include Behavioral Sleep Medicine. Byron Alexander MD documented in this encounterMckitrick Hospital04-18-2022 Instructions* Patient Instructions* Alida Gregorio APRN.CASEWORKER - 05/28/2021 4:07 PM EDT Heart Disease in Women Is heart disease a problem for women? Heart disease is the leading cause of of [place] women. More women from heart disease than [...] vessel, which can cause a heart attack orstroke. In the first year after a heart attack, women have an increased risk of . In the first 6 yearsafter a heart attack, they also have a higher risk of a second heart attack. Women are at high riskoften because they are older at the time [...] it. Many women have chest pain or pressure,but sometimes symptoms in women are different from [...] right away if you have these symptoms. Donot drive yourself to the hospital. Immediate emergency [...] you are taking. If you decide you needto make changes in the way you live, you probably won't be able to turn your life around all at once. Try to develop healthy habits that incorporate your lifestyle goals. If you do, you will greatly decrease your chances for developing heart disease. You can get more information from: [place] Heart Jlvbtddvlvm9-056-DRR-USA-1 ( )www.heart.org Developed by [employer]. Published by [employer]. Copyright 2014 [employer] and/or one of its subsidiaries. All rights reserved. documented in this encounterMckitrick Hospital04-18-2022 History of Present illness Narrative* Alida Gregorio APRN.CNP - 05/28/2021 4:00 PM EDT Chief Complaint Patient presents with: Established Patient History of Present Illness: Teresa Cash is a 45 year old female who presents for routine follow up. She has a past medicalhistory of PVCs and HTN. She was last seen in office by myself on 04/09/2021. At that time, she explained, she has a history of PVCs. Symptoms were manageable without a beta-baljinder or calcium channelblocker for several years. She felt prompted for [...] She completed a 14 day monitor without signi ficant arrhythmia and an echocardiogram which revealed grossly [...] Take by mouth once daily. fexofenadine HCl (SUSANA ORAL) Take by mouth as needed. cetirizine HCl (ZYRTEC ORAL) Take by mouth once daily. Current Facility-Administered Medications Medication Dose Route Frequency Provider Last Rate Last Admin perflutren lipid microspheres 1.3 mL in NaCl (PF) 0.9% 10 mL injection (DEFINITY) INTRAVENOUS DIRECTED PRN Alida Gregorio APRN.CASEWORKER sodium chloride 0.9 % (flush) 10 mL (BD POSIFLUSH) 10 mL INTRAVENOUS DIRECTED PRN Alida Gregorio APRN.CASEWORKER Review of Systems Constitutional: Negative for chills, [...] tingling, sensory change, speech change, focal weakness, lossof consciousness, weakness and headaches. Endo/Heme/Allergies: Does not [...] making from today Electronically signed by Alida Gregorio APRN.CNP on May 28, 2021, 3:32 PM documented in this encounterMckitrick Hospital04-05-2022 History of Present illness Narrative* Galilea Whitaker, MYLA - 05/15/2021 1:53 PM EDT Subjective: Patient ID: Teresa Cash is a 45 y.o. female. PERCY Moore presents today for CPE: Last Colonoscopy : 08/05/19 Dr Robbins- repeat 3 years Last Mammogram : done at [facility] fall Last PAP : 01/04/20- Dr. Chase- normal Last Stress Test: 05/07/21- normal echo Immunizations: TDaP: 04/05/15 COVID: 05/12/20, 06/05/20, declines booster FLU: allergy Last CXR: 06/24/19- normal Optho: [facility] Dentist: Q6 months GI: Dr. Robbins in [place], Dr. Monte in [facility] [place] [facility]- appt next week, had echo 05/07/21 and event monitor- referred to Sleep Med Allergy: Dr. Rea Ortho: Dr. Ramsay- [place] Relates that she is doing ok She states that she went to cardio because she thought she was having a heart attack. In the last 4months she has had 3 episodes of extreme [...] States mostly with position changes and only lastsa few seconds. She is fasting today Past [...] mouth daily ., Disp: , Rfl: fexofenadine (SUSANA) 180 MG tablet, Take 180 mg by [...] mouth at bedtime.,Disp: 270 tablet, Rfl: 3 olmesartan (BENICAR) 40 MG tablet, Take 1 (one) tablet (40 mg total) by mouth daily ., Disp: 90 tablet, Rfl: 1 BP (!) 142/92 Comment: left arm, regular cuff, manual Pulse (!) 59 Temp 97.8 F (36.6 C) Ht 5'7.13" Wt 78.7 kg (173 lb 6.4 oz) [...] abdominal distention, blood in stool, constipation, diarrhea, nauseaand rectal pain. Endocrine: Negative. Genitourinary: Negative for [...] ear normal. Nose: Nose normal. Mouth/Throat: Lips: [place]. Mouth: Mucous membranes are moist. Pharynx: Uvula [...] Discussed preventative needs and immunizations. Labs today. [facility] for pap and mammo- will get records. [...] mouth daily . Palpitations Comments: Establ[facility] and recent full cardiac exam- seeing this week- all testing benign Orders: - Magnesium Level; Future - TSH with Reflex Free T4; Future Eosinophilic esophagitis Comments: Is established with GI and [facility] [employer]- symptoms are improved at this time. Vitamin D deficiency Comments: checking levels and will adjust plan as appropriate Orders: - Vitamin D, Total, 25-OH; Future Vitamin B12 deficiency Comments: checking levels and will adjust plan as appropriate Orders: - Vitamin B12; Future documented in this [id number] Miscellaneous Notes* Telephone Encounter - Caro Tristan RN - 05/08/2021 9:17 AM EDT Pt. notified of results. Voices understanding. No questions/ concerns at this time, Caro Tristan RN * Telephone Encounter - Caro Tristan RN - 05/08/2021 9:17 AM EDT ----- Message from Alida Gregorio APRN.CNP sent at 05/07/2021 9:38 PM EDT ----- Please call patient and notify her echocardiogram is with grossly normal structure and function. Thank you! * Telephone Encounter - Alida Martinez LPN - 05/08/2021 8:00 AM EDT Left message for to call [facility] for test results. [facility] phone number provided. Alida Martinez LPN * Telephone Encounter - Alida Martinez LPN - 05/08/2021 7:14 AM EDT ----- Message from Alida Gregorio APRN.CNP sent at 05/07/2021 9:43 PM EDT ----- Please call patient and notify her monitor was without significant arrhythmia. Thank you! documented in this encounterMckitrick Hospital03-28-2022 Miscellaneous Notes* Result QuickNote - Alida Gregorio APRN.CNP - 05/07/2021 9:38 PM EDT Please call patient and notify her echocardiogram is with grossly normal structure and function. Thank you! documented in this encounterMckitrick Hospital10-05-2021 History of Present illness Narrative* Galilea Whitaker, MYLA - 11/14/2020 4:50 PM EDT Subjective: Patient ID: Teresa Cash is a 44 y.o. female. PERCY Moore presents today for chronic disease management She did establish with GI near her home- diagnosed with eosinophilic esophagitis- however, had fullallergy panel, through them, and no answers- she has tried multiple PPI, including nexium, omeprazole, pantoprazole, lansoprazole, without improvement. She is aware that not treating this can lead tocellular changes and would like to possibly get a second opinion. She has noticed that since vaccination she has had abnormal periods- has been very heavy bleeding and not in her typical cycle- she did see [facility], who did do a biopsy, which was benign- put on hormone for 3 months, which helped, but then when she stopped the hormone her bleeding returned- she has nottaken the second round of meds because she is concerned with potential intermediate side effects. She has been very fatigued, to the point of exhaustion, needing multiple naps. She also has had "a lot of hair loss". She was treated by her insurance [employer] for sinus infection last week with a ZPak- states bilateral ear pressure still and a lot of head pressure but all other symptoms are improved. She states that if she takes her BP meds she has normal BP at home- she has had a GÓMEZ for 2 days andwas concerned her BP would be high- she [...] Friends and Family: Not on file Attends Protestant Services: Not on file Active Member of [...] ., Disp: 10 mL, Rfl: 5 fexofenadine (SUSANA) 180 MG tablet, Take 180 mg by [...] mouth at bedtime.,Disp: 270 tablet, Rfl: 3 BP (!) 132/92 [...] tenderness or frontal sinus tenderness. Mouth/Throat: Lips: [place]. Pharynx: Oropharynx is clear. Eyes: General: Lids [...] increased vaginal bleeding- has been following with [facility] [facility] Orders: - CBC and Differential; Future - [...] DUB (dysfunctional uterine bleeding) Comments: Established with [facility] [facility] and has had biopsy, which was benign- declined further hormone tx- documented in this [id number] Miscellaneous Notes* Telephone Encounter - Bonnie Vazquez MA - 10/09/2020 11:38 AM EDT Requested Prescriptions Pending Prescriptions Disp Refills tiZANidine (Zanaflex) 4 MG tablet 270 tablet 3 Sig: Take up to 3 (three) tablets (12 mg total) by mouth at bedtime. Last OV: 04/2020 Has follow up scheduled for 10/2020 * Telephone Encounter - Bonnie Vazquez MA - 10/09/2020 11:38 AM EDT ----- Message from Jamie Chávez sent at 10/09/2020 11:08 AM EDT ----- Regarding: Rx Refill Contact: Brandie [facility] MEDICATION REFILL REQUEST: PCP: Galilea Whitaker [...] preferred pharmacy listed below? Yes Preferred pharmacies: [facility]/pharmacy #[id number] - [place], [place] - [address] [phone] Pt Call Back Number Patient call back message sent to the primary care clinical pool. Jamie Chávez . [facility]* Diagnosis Chronic migraine without aura without status migrainosus, not intractable [facility] Diagnosis Essential hypertension- Primary Unspecified essential hypertension Anemia, unspecified type Hair loss Unspecified alopecia Eosinophilic esophagitis DUB (dysfunctional uterine bleeding) Other disorder of menstruation and other abnormal bleeding from female genital tract documented in this encounter [facility] note* Diagnosis Palpitations documented in this encounter [facility] note* Diagnosis Annual physical exam- Primary Routine general medical examination at a health care facility Left hip pain Pain in joint, pelvic region and thigh Essential hypertension Unspecified essential hypertension Palpitations Eosinophilic esophagitis Vitamin D deficiency Vitamin B12 deficiency Other B-complex deficiencies [facility] Diagnosis Palpitations- Primary Sleep terrors Sleep arousal disorder Primary hypertension Unspecified essential hypertension documented in this encounter [facility] note* Diagnosis Dream enactment behavior- Primary documented in this encounter [facility] note* Diagnosis Onset Date Resolution Status Acute pharyngitis acute [facility] Work Phone: Evaluation note* Diagnosis Hypersomnia- Primary Hypersomnia, unspecified documented in this encounter [facility] note* Diagnosis Onset Date Resolution Status Acute sinusitis acute COVID-19 acute Adenomyosis acute Pelvic pain chronic Encounter for routine gynecological examination noneactive [facility] Work Phone: Evaluation note* Diagnosis RLS (restless legs syndrome)- Primary Restless legs syndrome (RLS) Chronic insomnia Insomnia, unspecified documented in this encounter [facility] note* Diagnosis Onset Date Resolution Status Adenomyosis acute Pelvic pain chronic Encounter for routine gynecological examination noneactive [facility] Work Phone: Evaluation note* Diagnosis Annual physical exam- Primary Routine general medical examination at a [facility] care facility Chronic migraine without aura without status migrainosus, not intractable Essential hypertension Unspecified essential hypertension Vitamin D deficiency Vitamin B12 deficiency Other B-complex deficiencies Vertigo Dizziness and giddiness Psychophysiological insomnia Persistent disorder of initiating or maintaining sleep [facility] this [facility]* Diagnosis Generalized abdominal pain- Primary Abdominal pain, generalized [facility] Diagnosis Arthralgia, unspecified joint- Primary Chronic migraine without aura without status migrainosus, not intractable Essential hypertension Unspecified essential hypertension Fatigue, unspecified type Generalized hypermobility of joints Other chronic gastritis without hemorrhage [facility] Diagnosis Pain in joint, multiple sites- Primary Benign joint hypermobility syndrome [facility] Diagnosis Herpes labialis- Primary Herpes simplex without mention of complication [facility] Diagnosis Herpes labialis Herpes simplex without mention of complication [facility] Diagnosis Onset Date Resolution Status [id number] noneactive [facility] Work Phone: Evaluation note* Diagnosis Annual physical exam- Primary Routine general medical examination at a health care facility Essential hypertension Unspecified essential hypertension Chronic migraine without aura without status migrainosus, not intractable Vitamin D deficiency Vitamin B12 deficiency Other B-complex deficiencies [facility] Diagnosis Benign joint hypermobility syndrome Pain in joint, multiple sites [facility] Diagnosis Essential hypertension- Primary Unspecified essential hypertension Chronic constipation Unspecified constipation Chronic migraine without aura without status migrainosus, not intractable Cyst of joint of left hand [facility] this [facility] Diagnosis Atypical chest pain- Primary Other chest pain Chest pain, unspecified type Palpitations PVC's (premature ventricular contractions) Other premature beats PVC (premature ventricular contraction) Other premature beats Chronic migraine without aura without status migrainosus, not intractable [facility] Diagnosis Atypical chest pain- Primary Other chest pain Chest pain, unspecified type Palpitations PVC's (premature ventricular contractions) Other premature beats PVC (premature ventricular contraction) Other premature beats GOPAL (acute kidney injury)- Primary [facility]* Diagnosis Chronic left shoulder pain- Primary Pain in joint, shoulder region Cervical spondylosis without myelopathy [facility]* Diagnosis Atypical chest pain- Primary Other chest pain Chest pain, unspecified type Palpitations PVC's (premature ventricular contractions) Other premature beats PVC (premature ventricular contraction) Other premature beats GOPAL (acute kidney injury)- Primary Urinary frequency [facility] this [facility]* Diagnosis Atypical chest pain- Primary Other chest pain Chest pain, unspecified type Palpitations PVC's (premature ventricular contractions) Other premature beats PVC (premature ventricular contraction) Other premature beats Ganglion cyst- Primary Unspecified ganglion [facility]* Diagnosis Atypical chest pain- Primary Other chest pain Chest pain, unspecified type Palpitations PVC's (premature ventricular contractions) Other premature beats PVC (premature ventricular contraction) Other premature beats Annual physical exam- Primary Routine general medical examination at a health care facility Essential hypertension Unspecified essential hypertension GOPAL (acute kidney injury) Vitamin D deficiency Vitamin B12 deficiency Other B-complex deficiencies [facility]* Diagnosis Atypical chest pain- Primary Other chest pain Chest pain, unspecified type Palpitations PVC's (premature ventricular contractions) Other premature beats PVC (premature ventricular contraction) Other premature beats Epidermoid cyst of hand- Primary [facility] Diagnosis Atypical chest pain- Primary Other chest pain Chest pain, unspecified type Palpitations PVC's (premature ventricular contractions) Other premature beats PVC (premature ventricular contraction) Other premature beats Epidermoid cyst of hand- Primary [facility]* Diagnosis Atypical chest pain- Primary Other chest pain Chest pain, unspecified type Palpitations PVC's (premature ventricular contractions) Other premature beats PVC (premature ventricular contraction) Other premature beats Epidermoid cyst of hand- Primary Yeast infection- Primary Epidermoid cyst of hand [facility]* Diagnosis Atypical chest pain- Primary Other chest pain Chest pain, unspecified type Palpitations PVC's (premature ventricular contractions) Other premature beats PVC (premature ventricular contraction) Other premature beats Epidermoid cyst of hand- Primary Epidermoid cyst of hand- Primary Epidermoid cyst of hand [facility]* Diagnosis Atypical chest pain- Primary Other chest pain Chest pain, unspecified type Palpitations PVC's (premature ventricular contractions) Other premature beats PVC (premature ventricular contraction) Other premature beats Yeast infection- Primary [facility]* Diagnosis Atypical chest pain- Primary Other chest pain Chest pain, unspecified type Palpitations PVC's (premature ventricular contractions) Other premature beats PVC (premature ventricular contraction) Other premature beats Epidermoid cyst of hand- Primary [facility]* Diagnosis Atypical chest pain- Primary Other chest pain Chest pain, unspecified type Palpitations PVC's (premature ventricular contractions) Other premature beats PVC (premature ventricular contraction) Other premature beats Herpes labialis- Primary Herpes simplex without mention of complication [facility]* Diagnosis Onset Date Resolution Status Admit Date Maxillary sinusitis acute Augus t 2024 9:16am Migraine acute October 10, 025 9:16am Nausea acute October 10, 025 9:16am [facility] Work Phone: Evaluation note* Diagnosis Atypical chest pain- Primary Other chest pain Chest pain, unspecified type Palpitations PVC's (premature ventricular contractions) Other premature beats PVC (premature ventricular contraction) Other premature beats Essential hypertension- Primary Unspecified essential hypertension GOPAL (acute kidney injury) Chronic constipation Unspecified constipation Bloating Flatulence, eructation, and gas pain Urinary frequency Weight gain Other symptoms concerning nutrition, metabolism, and development documented in this encounter [facility] Author Paola Heath [facility] Note Date/Time November 29, 2024 1 0:14am [facility] [address] [place] [address] OFFICE VISIT Date of Service: 11/29/24 MR#: [id number] Acct: [id number] Name: TERESA CASH Rep #: [id number] : 1975 Provider: LAMAR Heath Age/Sex: 49/F Location: [facility] Status: Signed Intake Vital Signs 10/10/24 09:44 10/20/24 13:32 Height 5 ft 8 in 5 ft 8 in Weight: 172 lb 176 lb 8 oz BMI 26.1 26.8 BP 136/70 H 147/99 H Blood Pressure Location Rt brachial Position Sitting Respiration 14 Pulse 76 56 L Pulse Source Monitor Temp 98.3 F 98.2 F Temp Source Oral Temporal Pulse Oximetry (%) 96 97 Oxygen Delivery Method room air room air Intake Visit Reasons: CHRONIC GASTRITIS Chief Complaint: Headache, Dizzy, Nausea Manager Transfer Required: No Accompanied by: Self Is patient in pain?: No Allergies clarithromycin (From Biaxin) Allergy (Mild, Verified 11/29/24 08:41) other erythromycin base (From Erythrocin) Allergy (Mild, Verified 11/29/24 08:41) other Medications ?Medication ?Instructions ?Recorded ?Confirmed ?Type cholecalciferol (vitamin D3) 250 250 mcg PO QWEEK REPL ACEMENT 12/15/19 11/29/24 History mcg (10,000 unit) capsule cyanocobalamin (vitamin B-12) 1,000 mcg PO DAILY 12/1411/29/24 History 1,000 mcg capsule olmesartan 20 mg tablet (Benicar) 20 mg PO DAILY 12/1411/29/24 History Held on 02/16/24. Instructions: Resume on 03/05/24. tizanidine 4 mg tablet 0 - 12 mg PO QHS 02/14/24 History ondansetron 4 mg disintegrating 4 mg PO Q8H PRN PRN Na usea #10 tabs 10/10/24 11/29/24 Rx tablet bupropion HCl 300 mg 24 hr tablet, 300 mg PO QAM 11/2911/29/24 History extended release (Wellbutrin XL) peg 3350-electrolytes 236 240 ml PO Q10M #4,000 mL 11/29/24 Rx gram-22.74 gram-6.74 gram-5.86 gram solution (Golytely) PFSH Medical History Hair loss Fatigue Hot flashes Atrophic vaginitis Family history of bladder cancer Family history of colon cancer in father Family history of breast cancer Chronic gastritis Ganglion cyst Ovarian cyst History of depression Hypertension Surgical History Hx of appendectomy Family History Mother Bladder cancer Aunt Cancer appendix Father Cancer stomach Suicide Grandmother Cancer abdom. 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 - February of this year she was admitted for Stage 4 CKD, unknown cause and labs are normal. - Reports having left flank pain. - She uses Miralax once a month for 3-4 days and enemas. - She reports going a week without a BM. - Weight gain of 40lbs in the past year. - Reports a history of early satiety, denies any issues the past 2 weeks. - Reports the past 2 weeks she has been having diarrhea. - Reports she is eating normally the past 2 weeks. - Denies any abdominal pain. - Denies any bleeding. - Reports her last colonoscopy revealed colon polyps 2022. - Father with colon cancer. - She denies any dietary changes and experiences severe bloating within an hour or two of eating with lower abdominal pressure. ROS Const Constitutional: Positive for fatigue and weight change; No fever(s) ENT ENT: No difficulty swallowing Gastro GI: Positive for abdominal pain, bloating, change in bowel habits, constipation and nausea/dyspepsia; No belching, change in stool character, coffee ground emesis, cramping, diarrhea, heartburn, difficulty swallowing, feeling full early, excessive flatus, incontinent of stools, Vomiting blood/hematemesis, Blood in stool, loosestools, Black,tarry stools, pain with swallowing, vomiting or other Musc Musculoskeletal: No joint pain Skin Skin: Positive for itchy eyes; No yellowing of the eye Psych Psychiatric: No anxiety and No depression Endo Endocrine: Positive for fatigue and weight change Aller/Imm Allergy/Immunologic: Positive for itchy eyes Say/Lymp Hematologic/Lymphatic: No easy bleeding or easy bruising Exam Const General: cooperative, healthy appearing, no acute distress and well developed Nutritional Appearance: well nourished and overweight Orientation: alert and oriented x3 HENMT Head: normocephalic Ears: hearing grossly normal bilaterally Mouth: moist mucous membranes Teeth and gingiva: dentition normal Eyes Conjunctivae: conjunctivae normal Sclera: sclerae normal Neck Neck: normal visual inspection, full ROM and trachea midline Resp Effort & Inspection: normal respiratory effort, able to speak in complete sentences and symmetric chest movement GI Inspection: normal to inspection Auscultation: normal bowel sounds Palpation: soft and no hepatosplenomegaly Rectal Exam: deferred Skin General: no rashes or lesions noted and turgor normal Neuro General: patient alert and patient oriented x3 Cranial Nerves: other (CN's grossly intact, non-focal exam) Cognition: normal cognition Speech: speech normal Gait: normal gait Extrem General: normal to inspection (no edema noted) Psych Appearance: grossly normal and well kempt Affect: normal affect Attitude: cooperative Thought Process: normal Assessment and Plan Assessment and Plan (1) Constipation: Status: Acute Qualifiers: Constipation type: slow transit constipation Qualified Code(s): K59.01 - Slow transit constipation Orders: Orders Abdomen Single View Today K59.00 - Constipation, unspecified Abdomen Single View Today K59.00 - Constipation, unspecified Medications: New peg 3350-electrolytes 236-22.74-6.74 -5.86 gram (Golytely) until fecal effluent is clear 240 mL PO Q10M 4,000 mL 0RF Plan Patient will complete a Sitz Marker study to objectively assess colonic transit time, as recommended for patients with refractory constipation or suspected slowtransit constipation. After completion of the study, Linzess (linaclotide) 290 mcg orally once daily will be initiated, taken on an empty stomach at least 30 minutes prior to a meal. Patient will follow up in three weeks to assess response and review Sitz Marker results. Given her history of colon polyps and family history of colon cancer, and with her last colonoscopy performed in 2022,a repeat colonoscopy will be performed now in accordance with guidelines for high-risk patients and those with changes in bowel habits. This will help exclude organic pathology and guide further management. Coding Level of Care Code Off vis,new,level 4 Diagnoses Slow transit constipation K59.01 Constipation type: slow transit constipation Comment 03655 Clinical Quality Measures Smoking Screening Smoking Status: Never smoker 11/29/24 0917 <Electronically signed by Paola NEWTON> Date _ Paola NEWTON Cosigner Signature: Date (if applicable) CC: ~ [facility] Work Phone: Reason for referral (narrative)* Diagnostic Procedure Only (Routine) - Pending Review Specialty Diagnoses / Procedures Referred By Rianna t Referred To Contact [facility] Diagnoses Dream enactment behavior Procedures MULTIPLE SLEEP LATENCY TEST INSURANCE ACCOUNT EXECUTIVE SLEEP LATENCY/MAINT OF WAKEFULNESS TSTG Byron Alexander MD [address] [place] [id number] [facility] [place] [address] [place] [id number] Referral ID Status Reason Start Date Expiration Date Visits Requested Visits Authorized [id number] Pending Review Auto-Generat ed Referral 08/02/2021 08/02/2022 1 1 [facility] for referral (narrative)* Diagnostic Procedure Only (Routine) - Closed Specialty Diagnoses / Procedures Referred By Rianna james Referred To Contact XR IMAGING Diagnoses Benign joint hypermobility syndrome Pain in joint, multiple sites Procedures XR HAND GENERAL 3V PA/LAT/OBL BILATERAL RADEX HAND MINIMUM [address] [place] [address] [place] [address] Xr Imaging [place] [address] Referral ID Status Reason Start Date Expiration Date V isits Requested Visits Authorized [id number] Closed Auto-Generate d Referral 01/08/2023 02/07/2024 1 1 [facility] for referral (narrative)No reason for referral information [facility]WK[facility] Work Phone: Reason for visit Narrative* Outpatient Procedure (Routine) - Closed Specialty Diagnoses / Procedures Referred By Rianna james Referred To [facility] Diagnoses Palpitations Procedures ECHO ECHO TTHRC R-T 2D W/WOM-MODE COMPL SPEC&COLR D Alida Gregorio, DEPUTY DISTRICT CUSTOMS DIRECTOR.CASEWORKER [address] [place] [address] [facility] [place] [address] Referral ID Status Reason Start Date Expiration Date V isits Requested Visits Authorized [id number] Closed Auto-Generate d Referral 04/09/2021 04/09/2022 1 1 [facility] Assessments Diagnosis Visit for screening mammogra m [...] swelling below the affected area. Take an [id number] pain medicine, such as acetaminophen (Tylenol), ibuprofen [...] Log into your personal health record on [email or web address] and enter P911 in the "Education" box to learn more about "Hematoma: Care Instructions." Current as of: December 30, 2016 Content Version: 11.6 0477-2012 [employer]. Care instructions adapted under license by your healthcare professional. If you have questions about a medical condition or this instruction, always ask your healthcare professional. [employer] disclaims any warranty or liability for your use of this information. in this encounter* Patient Instructions* Galilea Whitaker CNP - 02/26/2019 8:45 AM EST Please let me know if you do not hear to schedule your colonoscopy in the next 2 weeks! Make sure you tell them you want to do it at the [facility]. Please try a probiotic daily. I would also recommend watching your diet- if this is not helping your sleep and stomach, please let me know!! documented in this encounter Summary Purpose Family History No Family History Records Found Relationship Condition Age at Onset Recorded Date/T paolo mother Malignant neoplasm of urinary bladder Unk nown aunt Malignant neoplasm Unknown father Malignant neoplasm Unknown Suicide Unknown Relationship Condition Age at Onset Recorded Date/T paolo mother Malignant neoplasm of urinary bladder Unk nown aunt Malignant neoplasm Unknown father Malignant neoplasm Unknown Suicide Unknown grandmother Malignant neoplasm Unknown Advance Directives No Advanced Directives Records FoundLatest Code Status on File Code Status Date Activated Date Inactivated Comments Full Code 01/15/2016 11:17 PM 01/16/2016 6:45 PM Documents on File Type Date Recorded Patient Administrator Expl anation Advance Directives and Livin g Will 07/30/2018 7:39 AM Latest Code Status on File Code Status Date Activated Date Inactivated Comments Full Code 01/15/2016 11:17 PM 01/16/2016 6:45 PM Documents on File Type Date Recorded Patient Administrator Expl anation Advance Directives and Livin g Will 02/25/2019 8:44 AM Documents on File Type Date Recorded Patient Administrator Expl anation Advance Directives and Livin g Will 06/24/2019 10:30 AM Documents on File Type Date Recorded Patient Administrator Expl anation Advance Directives and Livin g Will 03/26/2019 10:45 AM Documents on File Type Date Recorded Patient Administrator Expl anation Advance Directives and Livin g Will 10/15/2019 2:00 PM Documents on File Type Date Recorded Patient Administrator Expl anation Advance Directives and Livin g Will 07/30/2018 7:39 AM Documents on File Type Date Recorded Patient Administrator Expl anation Advance Directives and Livin g Will 02/20/2018 11:11 AM Documents on File Type Date Recorded Patient Administrator Expl anation Advance Directives and Livin g Will 05/15/2021 9:37 AM Advance Directive Response Recorded Date/ Time Living Will No August 06, 2021 8:12am Power of Property Condition Assessor No August 06 8:12am Advance Directive Response Recorded Date/ Time Living Will No August 06, 2021 7:12am Power of Property Condition Assessor No August 06 7:12am Advance Directive Response Recorded Date/ Time Living Will No April 07, 023 5:13pm Power of Property Condition Assessor No April 07, 2022 5:13pm Latest Code Status on File Code Status Date Activated Date Inactivated Comments Full Code 01/15/2016 11:17 PM 01/16/2016 6:45 PM Latest Code Status on File Code Status Date Activated Date Inactivated Comments Full Code 01/15/2016 11:17 PM 01/16/2016 6:45 PM Advance Directive Response Recorded Date/ Time Name of Medical Power of Property Condition Assessor lizabeth shreya April 20, 2023 11:20am Living Will Yes April 20, 2023 11:20am Power of Property Condition Assessor Yes April 19 11:20am Date Activated Date Inactivated Comments 01/15/2016 11:17 PM 01/16/2016 6:45 PM Date Activated Date Inactivated Comments 01/15/2016 11:17 PM 01/16/2016 6:45 PM Advance Directive Response Recorded Date/ Time Living Will Yes February 13 6:00am Do you have a Healthcare Power of Property Condition Assessor? Yes February 14, 2024 6:00am Name of Medical Power of Property Condition Assessor gin February 14, 2024 6:00am History of Present Illness * Galilea Whitaker, CASEWORKER - 03/17/2018 12:26 PM EST Subjective: Patient [...] at bedtime.,Disp: 270 tablet, Rfl: 3 fexofenadine (SUSANA) 180 MG tablet, Take 180 mg by mouth daily ., Disp: , Rfl: meclizine (ANTIVERT) 25 mg tablet, Take 0.5-1 tablets (12.5-25 mg total) by mouth 3 (three) times aday as needed, Disp: 30 tablet, Rfl: 0 topiramate (TOPAMAX) 25 MG tablet, Take up to 4 tablets in the evening for headaches., Disp: 480 tablet, Rfl: 3 BP 128/82 Pulse 74 Ht 5' 9" Wt 79.8 kg (176 lb) SpO2 98% [...] surgery, including OTC medications. in this encounter* hCery Saez, DO - 10/01/2018 9:15 AM EDT Subjective [...] file Gets together: Not on file Attends orthodoxy service: Not on file Active member of [...] mg by mouth every evening . fexofenadine (SUSANA) 180 MG tablet Take 180 mg by [...] (36.8 C), temperature source Oral, height 5' 8", weight 77.1 kg (170 lb), SpO2 97 [...] file Gets together: Not on file Attends orthodoxy service: Not on file Active member of [...] mg by mouth every evening . fexofenadine (SUSANA) 180 MG tablet Take 180 mg by [...] Blood pressure 119/79, pulse 62, height 5' 8", weight 76.5 kg (168 lb 11.2 oz), [...] DO documented in this encounter* Galilea Whitaker, CASEWORKER - 02/26/2019 1:19 PM EST Subjective: Patient ID: Teresa Cash is a 43 y.o. female. HPI Ms. 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 She states she has no stress She does c/o issues with sleep and extreme exhaustion. Was seen by Dr. Saez and started on Vitamin B12 but has had minimal improvement.She relates that he sleep is "off"- often will wake at 3am andbe unable [...] but made her sleep walk and do "crazy things". She has been on Trazodone but the [...] file Gets together: Not on file Attends orthodoxy service: Not on file Active member of [...] ophthalmic solution, , Disp: , Rfl: fexofenadine (SUSANA) 180 MG tablet, Take 180 mg by [...] Cuff Size: Adult) Pulse 78 Ht 5' 8" Wt 76.3 kg (168 lb 3.2 oz) [...] her feet- states working in yard in [place]- has tried lotion/diabetic formula, and thick lotions [...] file Gets together: Not on file Attends orthodoxy service: Not on file Active member of [...] every evening ., Disp: , Rfl: fexofenadine (SUSANA) 180 MG tablet, Take 180 mg by [...] Cuff Size: Adult) Pulse 78 Ht 5' 8" Wt 72.5 kg (159 lb 12.8 oz) SpO2 98% BMI 24.30 kg/m Review of Systems Constitutional: Positive for fatigue. Negative for appetite change, chills, fever and unexpected weight change. HENT: Positive for mouth sores. Negative for postnasal drip, rhinorrhea and trouble swallowing. Tongue "burning" Eyes: Negative. Negative for visual disturbance. Respiratory: [...] disease management Had colonoscopy 08/05/[address] Robbins- multiple polyps, repeat in 3 years. Relates [...] file Gets together: Not on file Attends orthodoxy service: Not on file Active member of [...] every evening ., Disp: , Rfl: fexofenadine (SUSANA) 180 MG tablet, Take 180 mg by [...] 98.2 F (36.8 C) (Oral) Ht 5' 8" Wt 72.3 kg (159 lb 4.8 oz) [...] for CPE: Last Colonoscopy : 08/05/19: Dr. Robbins- repeat 3 years Last Mammogram : states fall 2019- will get records Last PAP : 12/15/19- Dr. Chase- Last Stress Test:02/07/16: normal Immunizations: TDaP: 04/05/15 FLU: allergy Last CXR: 06/24/19 Normal Optho: [facility]: q6 months ENT: Dr. Al- [facility]- 02/28/20- Ortho: [facility]: PRN Relates that [...] and goes- seeing an ortho specialist in [place] next week. Relates that she is really [...] scheduled for next month with GI in [place]- She denies CP/SOB, denies GÓMEZ/dizziness. Has occasional [...] file Gets together: Not on file Attends orthodoxy service: Not on file Active member of [...] ., Disp: 10 mL, Rfl: 5 fexofenadine (SUSAAN) 180 MG tablet, Take 180 mg by [...] 98.3 F (36.8 C) (Oral) Ht 5' 8" Wt 79.3 kg (174 lb 14.4 oz) [...] preventative needs and immunizations. labs today. 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 Chronic idiopathic constipation Comments: Worsened- establishing with GI in [place]- appt in May- discussed proper fluid needs- Vitamin D deficiency Comments: checking levels and will adjust plan as appropriate Orders: - Vitamin D, Total, 25-OH; Future Vitamin B12 deficiency Comments: checking levels and will adjust plan as appropriate Orders: - Vitamin B12; Future Tinnitus of both ears Comments: Established with Dr. Al in [place]- doing ok at this time- has mild hearing loss, not worsened. Right hip pain Comments: Establishing with ortho in [place] next week- ambulates without a problem Depression [...] takingZyrtec daily but often will also take susana seasonally. Past Medical History: Diagnosis Date Asthma [...] file Gets together: Not on file Attends orthodoxy service: Not on file Active member of [...] daily ., Disp: 6 tablet, Rfl:0 fexofenadine (SUSANA) 180 MG tablet, Take 180 mg by mouth daily ., Disp: , Rfl: topiramate (TOPAMAX) 25 MG tablet, Take up to 4 tablets in the evening for headaches ., Disp: 480 tablet, Rfl: 3 BP 119/81 (BP Location: Left arm, Patient Position: Sitting, BP Cuff Size: Adult) Pulse (!) 58 Ht 5' 9" Wt 77.3 kg (170 lb 6.4 oz) [...] Comments: Advised to continue zyrtec- can add susana daily if needed. Vertigo Comments: Continue meclizine TID PRN- call if not improving documented in this encounter Reason for Referral Status Reason Specialty Diagnoses / Procedures Referred By Contact Referred To Contact Authorized Otolaryngology Diagnoses Vertigo Bilateral hearing loss, unspecified hearing loss type Tinnitus of both ears Chery Saez DO [address] [place] [address] Status Reason Specialty Diagnoses / Procedures Referred By Contact Referred To Contact Pending Review Central Scheduling Diagnoses Essential hypertension Procedures Ultrasound renal artery duplex, Chery Whitley DO [address] [place] [address] Central Scheduling [address] [place] [address] Status Reason Specialty Diagnoses / Procedures Referred By Contact Referred To Contact Authorized Central Scheduling Diagnoses Essential hypertension Procedures Ultrasound renal artery duplex, Chery Whitley DO [address] [place] [address] Central Scheduling [address] [place] [address] Status Reason Specialty Diagnoses / Procedures Referred By Contact Referred To Contact Authorized Gastroenterology Diagnoses Screening for colon cancer Family history of GI tract cancer Galilea Whitaker CNP [address] [place] [address] Junito Garibay, DO [address] [address] Specialty Diagnoses / Procedures Referred By Contac t Referred To Contact Radiology Diagnoses Generalized abdominal pain Procedures US Abdomen Complete Galilea Whitaker, CASEWORKER [address] [place] [address] Referral ID Status Reason Start Date Expiration Date V isits Requested Visits Authorized [id number] Pending Review 09/24/2022 09/24/2023 1 1 Specialty Diagnoses / Procedures Referred By Contac t Referred To Contact Rheumatology Diagnoses Fatigue, unspecified type Generalized hypermobility of joints Galilea Whitaker, CASEWORKER [address] [place] [address] Yue Raymond MD [address] [address] Referral ID Status Reason Start Date Expiration Date Visits Requested Visits Authorized [id number] Authorized Specialty Services Required/Pat ient's Best Interest 11/19/2023 1 1 Discharge Instructions * Instructions* Robby Fermin, - 07/30/2018 Thank you for choosing to be seen in our Emergency Department. It has been our pleasure to take care of you and hope you were completely satisfied. We as medical healthcare administrator take great pride in what we do [...] loved ones. Thank you again for choosing [facility]. Dr. Fermin and your [facility] ER Staff Please review regarding your visit: Please note that your blood pressure during this ER visit was above 120/80 mmHg. The [place] [employer] (AHA) defines a normal blood pressure as below 120/80 mm Hg. This does not necessarily mean that you carry a diagnosis of a persistent elevation in your blood pressure called "hypertension" (unless you have already been diagnosed with [...] review at your convenience for more information: [email or web address] * Attachments The following attachments cannot be sent through Care Everywhere. * Ovarian Cyst: Functional (Sami) documented in this encounter Chief Complaint and Reason for Visit Chief Complaint SORE THROAT/REQUEST STREP TEST vaginal pain/irritation Reason for Visit Acute pharyngitis Chief Complaint sinus infection/COVI D SCREENING Annual ([employer]BER SHOP MANAGER) Reason for Visit Acute sinusitis COVID-19 Adenomyosis Pelvic pain Encounter for routine gynecological examination Chief Complaint SCREENING Annual (BARBER SHOP MANAGER) head injury Reason for Visit Adenomyosis Pelvic pain Encounter for routine gynecological examination Chief Complaint SCREENING Annual ([employer]BER SHOP MANAGER) r/s from 01/06 VOMITING Reason for Visit [id number] Chief Complaint Admit Date Annual (BARBER SHOP MANAGER) January 27, 2024 8:27am SCREENING January 27, 2024 9:08am REBAK FAILURE February 14, 2024 4: 05am REBAK FAILURE February 15, 2024 8: 21am CP February 15, 2024 9: 54pm REBAK FAILURE February 16, 2024 10 :59am LEFT HAND CYST May 12, 2024 4:12 pm Reason for Visit Admit Date Atrophic vaginitis January 27, 2024 8:27am Family history of bladder cancer Decembe r 2023 8:27am Family history of breast cancer January 27, 2024 8:27am Family history of colon cancer in father January 27, 2024 8:27am Fatigue January 27, 2024 8:27am Encounter for routine gynecological exam ination January 27, 2024 8:27am GOPAL (acute kidney injury) February 13 4:05am Flank pain February 14, 2024 4: 05am Proteinuria February 14, 2024 4: 05am Chief Complaint Admit Date HEADACHE, VERTIGO, NAUSEA October 10 025 9:16am Reason for Visit Admit Date Maxillary sinusitis October 10, 2024 9: 16am Migraine October 10, 2024 9: 16am Nausea October 10, 2024 9: 16am Chief Complaint Admit Date HEADACHE, VERTIGO, NAUSEA October 10 9:16am CHRONIC GASTRITIS November 29, 2024 8 :35am sitz marker day 3 December 07, 2024 1 1:47am EORDER December 09, 2024 9 :55am Reason for Visit Admit Date Maxillary sinusitis October 10, 2024 9: 16am Migraine October 10, 2024 9: 16am Nausea October 10, 2024 9: 16am Constipation November 29, 2024 8 :35am Additional Source Comments INFORMATION SOURCE (unrecogn ized section and content) DATE CREATED AUTHOR 12/07/2017 [facility] DATE CREATED AUTHOR AUTHOR'S ORGANIZ ATION 05/09/2021 [facility] DATE CREATED AUTHOR AUTHOR'S ORGANIZ ATION 05/17/2021 [facility] DATE CREATED AUTHOR AUTHOR'S ORGANIZ ATION 06/27/2024 [facility] DATE CREATED AUTHOR AUTHOR'S ORGANIZ ATION 07/20/2024 [facility] DATE CREATED AUTHOR AUTHOR'S ORGANIZ ATION 07/27/2024 [facility] DATE CREATED AUTHOR AUTHOR'S ORGANIZ ATION 10/22/2024 [facility] DATE CREATED AUTHOR AUTHOR'S ORGANIZ ATION 11/13/2024 [facility] DATE CREATED AUTHOR AUTHOR'S ORGANIZ ATION 12/16/2024 [facility] DATE CREATED AUTHOR AUTHOR'S ORGANIZ ATION [facility] Reason for Visit (unrecogniz ed section and content) Reason Comments Pre-op Exam PAT-03/25/2018 Dr. Leah ulrich PSC Reason Comments Fatigue exausted, no energy x 4 weeks Diarrhea Emesis Reason Comments Follow-up Status Reason Specialty Diagnoses / Procedures Referred By Contact Referred To Contact Authorized Central Scheduling Diagnoses Essential hypertension Procedures Ultrasound renal artery duplex, complete Se, Chery Rox, DO [address] [place] [address] Central Scheduling [address] [place] [address] Reason Comments Annual Exam fasting, fatigue off [...] THERAPY EVALUATION HIGH COMPLEX [address] [place] [address] [place] [address] [facility] [address] [place] [address] Referral ID Status Reason Start Date Expiration Date Visits Requested Visits Authorized [id number] Authorized Auto-Generat ed Referral 08/10/2022 02/09/2023 25 25 Reason Comments Annual Exam Hypertension Reason Comments Radio Gen RMP Specialty Diagnoses / Procedures Referred By Contac t Referred To Contact XR IMAGING Diagnoses Benign joint hypermobility syndrome Pain in joint, multiple sites Procedures XR HAND GENERAL 3V PA/LAT/OBL BILATERAL RADEX HAND MINIMUM [address] [place] [address] [place] [address] [place] [address] Referral ID Status Reason Start Date Expiration Date V isits Requested Visits Authorized [id number] Closed Auto-Generate d Referral 01/08/2023 02/07/2024 1 1 Reason Comments 6 month meds check Left Hand Nodule Pt noticed a nodule in her palm last week. No injury or pain in the area Reason Comments New Patient Neck Pain Pain (Shoulder Pain) Left Reason Comments Pain Reason Comments Annual Exam Yearly PE and Fastin g labs Reason Comments Follow-up Reason Comments Vaginal Discharge Entered automaticall y based on patient selection in [employer]. Reason Comments Pre-op Exam Left hand Reason Comments Suture / Staple Removal Follow-up Reason Onset Date Comments Medication Refill 08/30/2024 Reason Comments Hypertension Herendeen, Jared Hannah PA-C - 07/30/2018 7:26 AM NIRMALTTSaravanan vaca RN - 07/30/2018 7:17 AM EDT ED Notes (unrecognized secti on and content) ED PROVIDER NOTE [facility] NAME: Teresa Rico AGE: 42 y.o. : 1975 VISIT DATE: 07/30/2018 CSN: [id number] PCP: Galilea Whitaker CNP Chief Complaint Patient [...] file Gets together: Not on file Attends orthodoxy service: Not on file Active member of [...] mg by mouth every evening . fexofenadine (SUSANA) 180 MG tablet Take 180 mg by [...] C) Oral 76 16 100 % 5' 8" 78 kg (172 lb) Physical Exam Constitutional: [...] Colorless, Yellow Clarity, Urine Clear Clear Specific Debary 1.020 1.005 - 1.025 pH, Urine 5.0 [...] CNP. 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 Why: If symptoms worsen Contact information for [...] in this encounter ED Attestation Note - Robby Fermin DO - 07/30/2018 7:28 AM EDTTelephone Encounter - Bonnie Vazquez MA - 05/12/2020 3:55 PM EDT Miscellaneous Notes (unrecog nized section and content) I personally interviewed the patient. I personally examined the patient. I discussed the patient with DIRECTOR FIELD SERVICES/PA. I agree with the DIRECTOR FIELD SERVICES/PA treatment plan. I agree with the DIRECTOR FIELD SERVICES/PA plan of care. I agree with the DIRECTOR FIELD SERVICES/PA dispo as documented. The patient has been [...] Left ovarian cyst Dictation was done via [employer]. documented in this encounter Requested Prescriptions Pending Prescriptions Disp Refills olmesartan (BENICAR) 40 MG tablet 90 tablet 1 Sig: Take 1 (one) tablet (40 mg total) by mouth daily . Last OV: 04/2020 Has follow up scheduled for 10/2020 ----- Message from Amita Woodward sent at 05/12/2020 3:47 PM EDT ----- Regarding: rx refill Contact: YANCI Antonio [phone] MEDICATION REFILL REQUEST: PCP: Galilea Whitaker CNP [...] preferred pharmacy listed below? Yes Preferred pharmacies: [facility]/pharmacy #[id number] [place], [place] - [address] [facility] [address] [facility] [phone] Pt Call Back Number Patient call back message sent to the primary care clinical pool. Amita Woodward documented in this encounter Care Teams (unrecognized sec tion and content) [facility] Coordinator Relationship Specialty Start Date End Date Galilea Whitaker, CASEWORKER PCP - General Nurse Practitioner 09/12/14 Galilea Whitaker, CASEWORKER [address] [place] [address] PCP - ROSAL[place] Attributed Provider - MMO [employer] 05/11/19 Radha Mejias, DO [address] [address] [place] Attributed Provider - Internal Medicine Internal Medicine 02/06/16 Aminata Caputo MD [address] [place] [address] [place] Attributed Provider - Family Medicine Family Medicine 01/15/16 [facility] Coordinator Relationship Specialty Start Date End Date Galilea Whitaker CASEWORKER PCP - General Nurse Practitioner 09/12/14 Galilea Whitaker, CASEWORKER [address] [place] [address] PCP - ROSAL[place] Attributed Provider - [employer] 05/11/19 Radha Mejias, DO [address] [address] [place] Attributed Provider - Internal Medicine Internal Medicine 02/06/16 Aminata Caputo MD [address] [place] [address] [place] Attributed Provider - Family Medicine [facility] Medicine 01/15/16 [facility] Coordinator Relationship Specialty Start Date End Date Galilea Whitaker, CASEWORKER [address] [place] [address] PCP - [place] Attributed Provider - [employer] 08/10/18 02/09/50 Galilea Whitaker, CASEWORKER [address] [place] [address] PCP - General Nurse Practitioner 05/15/21 Radha Mejias, DO [address] [place] [address] [place] Attributed Provider - Internal Medicine Internal Medicine 02/06/16 Aminata Caputo MD [address] [facility] [place] [address] [place] Attributed Provider - Family [facility] 01/15/16 Team Status: Active Member Role Status Dates GALILEA WHITAKER Primary Care Provider Active Team Status: Inactive Member Role Status Dates Dr. Yaa Chase MD Attending Provider Active SHERMAN CALERO Primary Care Provider Active Team Status: Inactive Member Role Status Dates SHERMAN CALERO Primary Care Provider Active Luis Schneider MD Emergency Provider Active [facility] Coordinator Relationship Specialty Start Date End Date Galilea Whitaker, CASEWORKER [address] [place] [address] PCP - [place] Attributed Provider - [employer] 08/10/18 02/09/50 Galilea Whitaker, CASEWORKER [address] [place] [address] PCP - General Nurse Practitioner 05/15/21 Radha Mejias DO [address] [facility] [facility] [address] [place] [address] ROSALEE Attributed Provider - Internal Medicine Internal Medicine 02/06/16 Aminata Caputo MD [address] [place] [address] [place] Attributed Provider - Family Medicine Family Medicine 01/15/16 [facility] Coordinator Relationship Specialty Start Date End Date Galilea Whitaker, MYLA [address] [place] [address] PCP - [place] Attributed Provider - [employer] 08/10/18 02/09/50 Galilea Whitaker, MYLA [address] [place] [address] PCP - General Nurse Practitioner 05/15/21 [facility] Coordinator Relationship Specialty Start Date End Date Galilea Whitaker, MYLA [address] [place] [address] PCP - ROSAL[place] Attributed Provider - [employer] 08/10/18 02/09/50 Galilea Whitaker, MYLA [address] [place] [address] PCP - General Nurse Practitioner 05/15/21 [facility] Coordinator Relationship Specialty Start Date End Date Galilea Whitaker, MYLA [address] [place] [address] PCP - ROSAL[place] Attributed Provider - [employer] 08/10/18 02/09/50 Galilea Whitaker, CASEWORKER [address] [place] [address] PCP - General Nurse Practitioner 05/15/21 [facility] Coordinator Relationship Specialty Start Date End Date Galilea Whitaker, CASEWORKER [address] [place] [address] PCP - General Family Medicine 01/08/23 Galilea Whitaker, CASEWORKER [address] [place] [address] Referring Family Medicine 11/26/22 [facility] Coordinator Relationship Specialty Start Date End Date Galilea Whitaker, CASEWORKER [address] [place] [address] PCP - General Family Medicine 01/08/23 Galilea Whitaker, CASEWORKER [address] [place] [address] Referring Family Medicine 11/26/22 [facility] Coordinator Relationship Specialty Start Date End Date Galilea Whitaker, CASEWORKER [address] [place] [address] PCP - [place] [facility] Provider - MMO Commercial 08/10/18 02/09/50 Galilea Whitaker, CASEWORKER [address] [place] [address] PCP - General Nurse Practitioner 05/15/21 Team Status: Active Member Role Status Dates No Primary Care Physician Primary Care Provider Active Team Status: Inactive Member Role Status Dates Dr. Yaa Chase MD Attending Provider Active SHERMAN CALERO Primary Care Provider, Referring Pr ovider Active Team Status: Inactive Member Role Status Dates Dr. Yaa Chase MD Attending Provider, Referr ing Provider Active SHERMAN CALERO Primary Care Provider Active Team Status: Inactive Member Role Status Dates Dr. Paola Ramírez MD Emergency Provider Active No Primary Care Physician Primary Care Provider Active [facility] Coordinator Relationship Specialty Start Date End Date Galilea Whitaker, MYLA [address] [place] [address] PCP - [place]AL[place] Attributed Provider - [employer] 08/10/18 02/09/50 Galilea Whitaker, MYLA [address] [place] [address] PCP - General Nurse Practitioner 05/15/21 [facility] Coordinator Relationship Specialty Start Date End Date Galilea Whitaker, MYLA [address] [place] [address] PCP - General Family Medicine 01/08/23 Galilea Whitaker, MYLA [address] [place] [address] Referring Family Medicine 11/26/22 [facility] Coordinator Relationship Specialty Start Date End Date Galilea Whitaker, MYLA [address] [place] [address] PCP - General Nurse Practitioner 05/15/21 Galilea Whitaker, MYLA [address] [place] [address] PCP - [place] Attributed Provider - [employer] 07/12/23 02/09/50 [facility] Coordinator Relationship Specialty Start Date End Date Galilea Whitaker, MYLA [address] [place] [address] PCP - General Nurse Practitioner 05/15/21 [facility] Coordinator Relationship Specialty Start Date End Date Galilea Whitaker, MYLA [address] [place] [address] PCP - General Nurse Practitioner 05/15/21 [facility] Coordinator Relationship Specialty Start Date End Date Galilea Whitaker CNP [address] [place] [address] PCP - General Family Medicine 01/08/23 Galilea Whitaker, MYLA [address] [place] [address] Referring Family Medicine 11/26/22 [facility] Coordinator Relationship Specialty Start Date End Date Galilea Whitaker, MYLA [address] [place] [address] PCP - General Nurse Practitioner 05/15/21 Galilea Whitaker, MYLA [address] [place] [address] PCP - [place] Attributed Provider - [employer] 01/11/24 02/09/50 [facility] Coordinator Relationship Specialty Start Date End Date Galilea Whitaker, MYLA [address] [place], [place] [address] PCP - General Nurse Practitioner 05/15/21 Galilea Whitaker, CASEWORKER [address] [place] [address] PCP - ROSALEE Attributed Provider - Gallina Commercial 01/11/24 02/09/50 Team Status: Active Member Role Status Dates Galilea Whitaker , DIRECTOR FIELD SERVICES-C Primary Care Provider Activ e Team Status: Inactive Member Role Status Dates No Primary Care Physician Primary Care Provider Active Start: January 27, 2024 End: January 27, 2024 No Primary Care Physician Referring Provider Active Start: January 27, 2024 End: January 27, 2024 Mable Mckeon NP, DIRECTOR FIELD SERVICES-C Attending Provider Active Start: January 27, 2024 End: January 27, 2024 Team Status: Inactive Member Role Status Dates No Primary Care Physician Primary Care Provider Active Start: January 27, 2024 End: January 27, 2024 Dr. Yaa Chase MD Attending Provider Active Start: January 27, 2024 End: January 27, 2024 Dr. Yaa Chase MD Referring Provider Active Start: January 27, 2024 End: January 27, 2024 Team Status: Inactive Member Role Status Dates Dr. Bonnie Weber DO Emergency Provider Active Start: February 14, 2024 End: February 16, 2024 SHERMAN CALERO Primary Care Provider Active Start: February 14, 2024 End: February 16, 2024 Dr. Susy Carranza DO Admit Provider Active Start : February 14, 2024 End: February 16, 2024 Dr. Susy Carranza DO Other Provider Active Start : February 14, 2024 End: February 16, 2024 Dr. Ilya Peña MD Attending Provider Active Start: February 14, 2024 End: February 16, 2024 Dr. Criselda South MD Other Provider Active Start: February 14, 2024 End: February 16, 2024 Team Status: Active Member Role Status Dates Dr. Bonnie Weber DO Emergency Provider Active Start: February 15, 2024 SHERMAN CALERO Primary Care Provider Active Start: February 15, 2024 Dr. Susy Carranza DO Admit Provider Active Start : February 15, 2024 Dr. Susy Carranza DO Other Provider Active Start : February 15, 2024 Dr. Ilya Peña MD Attending Provider Active Start: February 15, 2024 Dr. Ilya Peña MD Other Provider Active Start: February 15, 2024 Dr. Criselda South MD Other Provider Active Start: February 15, 2024 Team Status: Active Member Role Status Dates Dr. Micky Moss MD Attending Provider Active S tart: February 15, 2024 End: February 15, 2024 Dr. Susy Carranza DO Referring Provider Active S tart: February 15, 2024 End: February 15, 2024 Team Status: Active Member Role Status Dates Dr. Bonnie Weber DO Emergency Provider Active Start: February 16, 2024 SHERMAN CALERO Primary Care Provider Active Start: February 16, 2024 Dr. Susy Carranza DO Admit Provider Active Start : February 16, 2024 Dr. Susy Carranza DO Other Provider Active Start : February 16, 2024 Dr. Ilya Peña MD Attending Provider Active Start: February 16, 2024 Dr. Ilya Peña MD Other Provider Active Start: February 16, 2024 Dr. Criselda South MD Other Provider Active Start: February 16, 2024 Team Status: Inactive Member Role Status Dates ARIANA CASEY Attending Provider Active Start: May 12, 2024 End: May 12, 2024 ARIANA CASEY Referring Provider Active Start: May 12, 2024 End: May 12, 2024 Galilea Whitaker , DIRECTOR FIELD SERVICES-C Primary Care Provider Activ e Start: May 12, 2024 End: May 12, 2024 Grant Coordinator Relationship Specialty Start Date End Date Galilea Whitaker CNP [address] [place] [address] PCP - General Nurse Practitioner 05/15/21 Grant Coordinator Relationship Specialty Start Date End Date Galilea Whitaker CNP [address] [place] [address] PCP - General Nurse Practitioner 05/15/21 Grant Coordinator Relationship Specialty Start Date End Date Galilea Whitaker, MYLA [address] [place] [address] PCP - General Nurse Practitioner 05/15/21 Grant Coordinator Relationship Specialty Start Date End Date Galilea Whitaker CNP [address] [place] [address] PCP - General Nurse Practitioner 05/15/21 Grant Coordinator Relationship Specialty Start Date End Date Galilea Whitaker CNP [address] [place] [address] PCP - General Nurse Practitioner 05/15/21 Grant Coordinator Relationship Specialty Start Date End Date Galilea Whitaker CNP [address] [place] [address] PCP - General Nurse Practitioner 05/15/21 Team Status: Active Member Role/Relationship Status Dates Galilea Whitaker NP-C Primary Care Provider Activ e Team Status: Inactive Member Role/Relationship Status Dates Galilea Whitaker NP-C Primary Care Provider Activ e Start: October 10, 2024 End: October 10, 2024 Galilea Whitaker NP-C Referring Provider Active Start: October 10, 2024 End: October 10, 2024 Richard Steele DIRECTOR FIELD SERVICES, DIRECTOR FIELD SERVICES-C Attending Provider Active S tart: October 10, 2024 End: October 10, 2024 Grant Coordinator Relationship Specialty Start Date End Date Galilea Whitaker CNP [address] [place] [address] PCP - General Nurse Practitioner 05/15/21 Team Status: Active Member Role/Relationship Status Dates Galilea Whitaker NP-C Primary care physician Acti ve Team Status: Inactive Member Role/Relationship Status Dates Galilea Whitaker NP-C Primary care physician Acti ve Start: October 10, 2024 End: October 10, 2024 Galilea Whitaker NP-C Referring Provider Active Start: October 10, 2024 End: October 10, 2024 Richard Steele NP DIRECTOR FIELD SERVICES-C Attending physician Active Start: October 10, 2024 End: October 10, 2024 Team Status: Inactive Member Role/Relationship Status Dates Galilea Whitaker NP-C Primary care physician Acti ve Start: November 29, 2024 End: November 29, 2024 Galilea Whitaker NP-C Referring Provider Active Start: November 29, 2024 End: November 29, 2024 Paola Heath NP-C Attending physician Active Start: November 29, 2024 End: November 29, 2024 Team Status: Inactive Member Role/Relationship Status Dates Galilea Whitaker NP-C Primary care physician Acti ve Start: December 07, 2024 End: December 07, 2024 Paola Heath NP-C Attending physician Active Start: December 07, 2024 End: December 07, 2024 Paola Heath NP-C Referring Provider Active Start: December 07, 2024 End: December 07, 2024 Team Status: Active Member Role/Relationship Status Dates Galilea Whitaker NP-C Primary care physician Acti ve Start: December 09, 2024 Paola Heath NP-C Attending physician Active Start: December 09, 2024 Paola Heath NP-C Referring Provider Active Start: December 09, 2024 Source Comments (unrecognize d section and content) In the event this informatio n is protected by the Federal Confidentiality of Alcohol and Drug Abuse Patient Records regulations: The Federal rules restrict any use of the information to criminally investigate or prosecute any alcohol or drug abuse patient.[facility] the event this information is protected by the Federal Confidentiality of Alcohol and Drug Abuse Patient Records regulations: The Federal rules restrict any use of the information to criminally investigate or prosecute any alcohol or drug abuse patient.[facility] the event this information is protected by the Federal Confidentiality of Alcohol and Drug Abuse Patient Records regulations: The Federal rules restrict any use of the information to criminally investigate or prosecute any alcohol or drug abuse patient.[facility] the event this information is protected by the Federal Confidentiality of Alcohol and Drug Abuse Patient Records regulations: The Federal rules restrict any use of the information to criminally investigate or prosecute any alcohol or drug abuse patient.[facility] the event this information is protected by the Federal Confidentiality of Alcohol and Drug Abuse Patient Records regulations: The Federal rules restrict any use of the information to criminally investigate or prosecute any alcohol or drug abuse patient.[facility] the event this information is protected by the Federal Confidentiality of Alcohol and Drug Abuse Patient Records regulations: The Federal rules restrict any use of the information to criminally investigate or prosecute any alcohol or drug abuse patient.[facility] the event this information is protected by the Federal Confidentiality of Alcohol and Drug Abuse Patient Records regulations: The Federal rules restrict any use of the information to criminally investigate or prosecute any alcohol or drug abuse patient.[facility] the event this information is protected by the Federal Confidentiality of Alcohol and Drug Abuse Patient Records regulations: The Federal rules restrict any use of the information to criminally investigate or prosecute any alcohol or drug abuse patient.[facility] the event this information is protected by the Federal Confidentiality of Alcohol and Drug Abuse Patient Records regulations: The Federal rules restrict any use of the information to criminally investigate or prosecute any alcohol or drug abuse patient.[facility] the event this information is protected by the Federal Confidentiality of Alcohol and Drug Abuse Patient Records regulations: The Federal rules restrict any use of the information to criminally investigate or prosecute any alcohol or drug abuse patient.[facility] the event this information is protected by the Federal Confidentiality of Alcohol and Drug Abuse Patient Records regulations: The Federal rules restrict any use of the information to criminally investigate or prosecute any alcohol or drug abuse patient.[facility] the event this information is protected by the Federal Confidentiality of Alcohol and Drug Abuse Patient Records regulations: The Federal rules restrict any use of the information to criminally investigate or prosecute any alcohol or drug abuse patient.[facility] the event this information is protected by the Federal Confidentiality of Alcohol and Drug Abuse Patient Records regulations: The Federal rules restrict any use of the information to criminally investigate or prosecute any alcohol or drug abuse patient.[facility] Goals (unrecognized section and content) Goals may be documented in a n alternate sectionGoals may be documented in an alternate sectionGoals may be documented in an alternate sectionGoals may be documented in an alternate sectionGoals may be documented in an alternate sectionGoals may be documented in an alternate section FOR RECORDS PERTAINING TO PATIENTS WHO ARE [...] BE BASED ON THE PRIMARY CLINICAL RECORDS. [facility]. provides no warranty or guarantee of the accuracy or completeness of information in this document.
[2024-12-23] MEDS: Lactated Ringers 1,000 ML 15 ML IV (06:53)
[2024-12-23 07:00] LABS: Internal QC Validated? YES +Cl - CLEAR BKGD; Pregnancy, Urine Negative Negative; Record Kit Lot#,Urine Preg 0000980607
--- NOTE | 2024-12-23 07:16 | HP.PCM_ITS ---
HPI - General General Date of Admission: 12/23/24 Date of Service: 12/23/24 Chief Complaint: Screening colonoscopy HPI Narrative AMINATA DAO, is a 49 F who presents [Chief Complaint: Headache, Dizzy, Nausea Details: - February of this year she had stage 4 kidney failure - she is using laxatives and enemas - PMH of EoE - 49y/o female with PMH of chronic gastritis, EoE, previously on pantoprazole. - February of this year she was admitted for Stage 4 CKD, unknown cause and labs are normal. - Reports having left flank pain. - She uses Miralax once a month for 3-4 days and enemas. - She reports going a week without a BM. - Weight gain of 40lbs in the past year. - Reports a history of early satiety, denies any issues the past 2 weeks. - Reports the past 2 weeks she has been having diarrhea. - Reports she is eating normally the past 2 weeks. - Denies any abdominal pain. - Denies any bleeding. - Reports her last colonoscopy revealed colon polyps 2022. - Father with colon cancer. - She denies any dietary changes and experiences severe bloating within an hour or two of eating with lower abdominal pressure. t. ] [facility] Medical History Wears glasses Alcohol use Arthritis Anemia Back pain Vocal cord dysfunction Non-smoker Colonoscopy planned Sleep paralysis History of Holter monitoring History of echocardiogram Cardiology follow-up encounter Family history of breast cancer Family history of colon cancer in father Family history of bladder cancer Atrophic vaginitis Hot flashes Fatigue Hair loss Chronic gastritis Ganglion cyst Ovarian cyst History of depression Hypertension Home Medications Medication Instructions Recorded Last Taken Type cholecalciferol (vitamin D3) 250 250 mcg PO QWEEK REPL ACEMENT 12/15/19 Unknown History mcg (10,000 unit) capsule cyanocobalamin (vitamin B-12) 1,000 mcg PO DAILY 12/14 Unknown History 1,000 mcg capsule Held on 12/21/24. Instructions: ON HOLD 12/21/2024 tizanidine 4 mg tablet 0 - 12 mg PO QHS 02/14/24 Un known History ondansetron 4 mg disintegrating 4 mg PO Q8H PRN PRN Na usea #10 tabs 10/10/24 Unknown Rx tablet bupropion HCl 300 mg 24 hr tablet, 300 mg PO QAM 11/29 Unknown History extended release (Wellbutrin XL) sodium sul 1.479 gram-potas ch See Rx Instructions PO .COMPLEX 11/29/24 Unknown Rx 0.188 gram-magnes sul 0.225 gram #28 tabs tablet (Sutab) magnesium 200 mg tablet 200 mg PO QHS 12/21/24 Unkno wn History olmesartan 40 mg tablet (Benicar) 40 mg PO DAILY 12/21 Unknown History Allergy/AdvReac Type Severity Reaction Status Date / Time clarithromycin (From Biaxin) Allergy Mild other Verified 12/23/24 06:46 erythromycin base (From Allergy Mild other Verified 12/23/24 06:46 Erythrocin) Family History Mother Bladder cancer Aunt Cancer appendix Father Cancer stomach Suicide Grandmother Cancer abdom. 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 [employer] ROS Constitutional Constitutional: Denies fatigue, fever(s), poor appetite, weight gain or weight loss Gastrointestinal Gastrointestinal: Denies belching, bloating, change in bowel habits, change in stool character, chewing difficulty, coffee ground emesis, constipation, cramping, diarrhea, dyspepsia, dysphagia, early satiety, excessive flatus, fecal incontinence, heartburn, hematemesis, hematochezia, hemorrhoids, loose stools, melena, nausea, odynophagia, rectal bleeding, tenesmus, vomiting or weight changes Vital Signs Vital Signs Vital Signs: 12/23/24 06:47 12/23/24 06:47 Temperature 97 F L Temperature Source Temporal Pulse Rate 66 Respiratory Rate 16 Respiratory Pattern Normal Blood Pressure 127/79 H Blood Pressure Mean 95 Blood Pressure Source Monitor Blood Pressure Position Semi-Fowlers Blood Pressure Location Right Arm Pulse Ox 97 Oxygen Delivery Method Room Air Weight Weight: 170 lb Body Mass Index (BMI) 25.8 Physical Exam Const alert, oriented x3, no apparent distress and healthy appearing General Appearance: cooperative GI normal to inspection, nondistended, normoactive bowel sounds, soft to palpation, non-tender and non-distended Percussion: normal to percussion Rectal Exam: deferred Results Lab / Micro Data Labs: Laboratory Results - last 24 hr 12/23/24 06:40: Urine Test Negative Assessment & Plan Assessment/Plan (1) Constipation: QUALIFIERS: Constipation type: slow transit constipation Qualified Code(s): K59.01 - Slow transit constipation (2) Screening for colon cancer: PLAN: Assessment and Plan Assessment and Plan (1) Constipation: Status: Acute Qualifiers: Constipation type: slow transit constipation Qualified Code(s): K59.01 - Slow transit constipation Orders: Orders Abdomen Single View Today K59.00 - Constipation, unspecified Abdomen Single View Today K59.00 - Constipation, unspecified Medications: New peg 3350-electrolytes 236-22.74-6.74 -5.86 gram (Golytely) until fecal effluent is clear 240 mL PO Q10M 4,000 mL 0RF Plan Patient will complete a Sitz Marker study to objectively assess colonic transit time, as recommended for patients with refractory constipation or suspected slow transit constipation. After completion of the study, Linzess (linaclotide) 290 mcg orally once daily will be initiated, taken on an empty stomach at least 30 minutes prior to a meal. Patient will follow up in three weeks to assess respon se and review Sitz Marker results. Given her history of colon polyps and family history of colon cancer, and with her last colonoscopy performed in 2022, a repeat colonoscopy will be performed now in accordance with guidelines for high- risk patients and those with changes in bowel habits. This will help exclude organic pathology and guide further managemen D/C Safety Score for UGIB Assessment [place] Bleeding Score (GBS): Stratifies upper GI bleeding patients who are "low-risk" and candidates for outpatient management. Hemoglobin, BUN, Recent Vital Signs: Pulse Rate 66 Blood Pressure 127/79 Score Interpretation: Score of 0: A GBS of 0 is a “Low Risk” GI bleed, and is highly sensitive (99.6% in a 2007 retrospective study) for predicting which patients did not require any “medical intervention”: blood transfusion, endoscopy, or surgery. This was confirmed in a 2009 [facility] study where patients with a score of 0 were actually discharged and had no GI bleeding mortality at 6 month followup Score above 0: A GBS greater than zero suggests a “High Risk” GI bleed that is likely to require “medical intervention”: transfusion, endoscopy, or surgery. A higher GBS also correlated with a higher likelihood of needing intervention Scores >/= 6 are associated with >50% risk of needing intervention D/C Safety Score for LGIB Assessment Assessment Tool: Readmission and adverse event risk in patients with acute lower GI bleeding. Hemoglobin and Recent Vital Signs: Pulse Rate 66 12/23/24 06:47 Blood Pressure 127/79 12/23/24 06:47 Score Interpretation: Probability Percentage of safe discharge (absence of rebleeding, blood transfusion, therapeutic intervention, 28 day readmission, or ) Score of 8 or below: Consider discharge, with appropriate precautions. Score of 9 or above: Discharge NOT recommended. Consider admission with further workup and resuscitation as necessary.
--- NOTE | 2024-12-23 07:19 | PCM.PRE.AN2 ---
ASA Classification* ASA Classification ASA Classification: 2 Assessment & Plan Anesthesia* Anesthesia Assessment Anesthesia Assessment: Discussed sedation and/or anesthesia options, risks, benefits, and alternatives with patient/parents/legal guardian/POA. Questions invited. The patient/parents/legal guardian/POA seems to understand and agrees to proceed with anesthesia plan. Reviewed the physical assessment, medical history, allergy history and patient home medications list prior to surgery/procedure/anesthetic and documented any changes. Performed airway and anesthesia risk assessments. Anesthesia Type Anesthesia Type: MAC History Source History Obtained from:: Patient and Chart Anesthesia Focused Assessment* Temperature: 97 F Pulse Rate: 66 Blood Pressure: 127/79 Respiratory Rate: 16 Pulse Ox: 97 Oxygen Delivery Method: Room Air Airway Assessment Mouth opens: >3 cm Mallampati Score: I Teeth Condition: Caps/Crowns (Patient has a couple crowns. They are tight.) Neck Range of motion (ROM): Full ROM Labs Anesthesia Preop lab: CBC WBC, (4.4-11.0) 6.0 K/mm3 02/16/24, 04:26 RBC, (4.2-5.4) 3.28 M/mm3 L 02/16/24, 04:26 Hgb, (12.0-15.0) 10.7 g/dL L 02/16/24, 04:26 Hct, (37-47) 32.2 % L 02/16/24, 04:26 Plt Count, (150-450) 198 K/mm3 02/16/24, 04:26 CHEMISTRY Potassium, (3.5-5.1) 3.8 mmol/L 02/16/24, 04:26 Sodium, (136-145) 144 mmol/L 02/16/24, 04:26 Magnesium, (1.6-2.6) 2.3 mg/dL 02/14/24, 08:48 Phosphorus, (2.5-4.9) 4.2 mg/dL 02/14/24, 08:48 BUN, (7-18) 16 mg/dL 02/16/24, 04:26 Creatinine, (0.55-1.02) 1.20 mg/dL H 02/16/24, 04:26 Glucose, (74-106) 117 mg/dL H 02/16/24, 04:26 TSH, (0.358-3.740) 0.888 uIU/mL 02/14/24, 08:48 COAG Urine Test Negative Negative Today, 06:40 Tst Clinic Negative 05/09/20, 11:48 Pre-Assessment Diagnosis/Proposed Procedure Planned Operative Procedure(s): COLONOSCOPY Anesthesia History 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 When Was Last Pacemaker Check QUESTION #4 FULL TEXT: You/Your Family Experience fever (hyperthermia) with Anesthesia Last Oral Intake Last Oral intake: Last Oral Intake NPO since 23:30 12/23/24 06:47 Meds taken in AM with sips of water? 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 tractor engine mechanic Female Yes 12/21/24 14:48 HX of Motion Sickness No 12/21/24 14:48 HX of N/V After Surgery No 12/21/24 14:48 Non-Smoker Yes 12/21/24 14:48 Duration of Surgery greater No 12/21/24 14:48 than 60 minutes Number of Risk Factors 2 12/21/24 14:48 PONV Score Moderate Risk 12/21/24 14:48 Height & Weight Height & Weight: Anesthesia: Height & Weight Height 5 ft 8 in 12/23/24 06:47 Weight: 77.111 kg 12/23/24 06:47 Body Mass Index (BMI) 25.8 12/23/24 06:47 Respiratory Assessment Respiratory Assessment - diesel tractor engine mechanic: Respiratory Tract Infection Hx - diesel tractor engine mechanic Hx Respiratory Tract Infection No 12/21/24 14:48 STOP Sleep Apnea STOP Sleep Apnea - diesel tractor engine mechanic: STOP Sleep Apnea - diesel tractor engine mechanic Hx Hypertension Yes: CONTROLLED WITH MEDS 12/21/24 14:48 Hx Sleep Apnea No 12/21/24 14:48 CPAP BIPAP Do you snore loudly (louder No 12/21/24 14:48 than talking or can be heard Do you often feel tired/ No 12/21/24 14:48 fatigued/ sleepy during daytime? Has anyone observed you stop No 12/21/24 14:48 breathing during sleep? STOP Results Negative 12/21/24 14:48 QUESTION #5 FULL TEXT : Do you snore loudly (louder than talking or can be heard through closed doors)? 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 Specify any problems Hx of Preganancy in last 3 No 12/21/24 14:48 Months Nurse Filling Out Transfusion [email or web address] 12/21/24 14:48 & Questions: Date: 12/21/24 12/21/24 14:48 Time: 14:52 12/21/24 14:48 Patient unable to answer at this time (ie. confused, unrespo /Reproduction History /Reproductive History - diesel tractor engine mechanic: /Reproductive Hx- diesel tractor engine mechanic Hx Now Gestational Age (in weeks): EDC: Hx Hx Para Hx Section SAB No 12/21/24 14:48 Does the father of the baby or his family experience fever w Father of the baby Malignant Hypertension history comment Active Medications Active Medications: Current Medications Generic Name Dose Route Start Last Admin Trade Name Freq PRN Reason Stop Dose Admin Lactated Ringer's 1,000 mls @ 15 mls/hr 12/23/24 06:45 12/23/24 06:53 IV 15 mls/hr .Q48H GREG Administration PFSH Medical History Wears glasses Alcohol use Arthritis Anemia Back pain Vocal cord dysfunction Non-smoker Colonoscopy planned Sleep paralysis History of Holter monitoring History of echocardiogram Cardiology follow-up encounter Family history of breast cancer Family history of colon cancer in father Family history of bladder cancer Atrophic vaginitis Hot flashes Fatigue Hair loss Chronic gastritis Ganglion cyst Ovarian cyst History of depression Hypertension Home Medications Medication Instructions Recorded Last Taken Type cholecalciferol (vitamin D3) 250 250 mcg PO QWEEK REPLACEMENT 12/15/19 Unknown History mcg (10,000 unit) capsule cyanocobalamin (vitamin B-12) 1,000 mcg PO DAILY 12/15/19 Unknown History 1,000 mcg capsule Held on 12/21/24. Instructions: ON HOLD 12/21/2024 tizanidine 4 mg tablet 0 - 12 mg PO QHS 02/14/24 Unknown History ondansetron 4 mg disintegrating 4 mg PO Q8H PRN PRN Nausea #10 tabs 10/10/24 Unknown Rx tablet bupropion HCl 300 mg 24 hr tablet, 300 mg PO QAM 11/29/24 Unknown History extended release (Wellbutrin XL) sodium sul 1.479 gram-potas ch See Rx Instructions PO .COMPLEX 11/29/24 Unknown Rx 0.188 gram-magnes sul 0.225 gram #28 tabs tablet (Sutab) magnesium 200 mg tablet 200 mg PO QHS 12/21/24 Unknown History olmesartan 40 mg tablet (Benicar) 40 mg PO DAILY 12/21/24 Unknown History Allergy/AdvReac Type Severity Reaction Status Date / Time clarithromycin (From Biaxin) Allergy Mild other Verified 12/23/24 06:46 erythromycin base (From Allergy Mild other Verified 12/23/24 06:46 Erythrocin) Family History Mother Bladder cancer Aunt Cancer appendix Father Cancer stomach Suicide Grandmother Cancer abdom. Surgical History (Updated 12/23/24 @ 07:[address] 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
--- NOTE | 2024-12-23 07:30 | COLBX_PTH ---
PATIENT: AMINATA DAO LOC: EN U#:[id number] AGE/SX: 49/F ROOM: RE12/23/[address]: Dr. Conrad Holt DO : 1975 BED: DIS: 12/23/2024 SPEC #: [id number] RECD: 12/23/24 09:38 STATUS: MIKALA REQ #: [id number] LEOLA: 12/23/24 07:[address]: Conrad Holt DEPT: SURGICAL PATHOLOGY RECD BY: Seth Marquez ENTERED: 12/23/24 10:21 SP TYPE: COLON BX NAJMA DR: Jessenia Whitaker, FIREMAN-C Tissues: A - Transverse colon B - Ileum, NOS Procedures: Surgery Specimen Level IV HEADER OPERATION: Colonoscopy PRE-OP DIAGNOSIS: Screening for colon cancer, constipation TISSUE SUBMITTED: A- Transverse colon polyp biopsy, B- Terminal ileum biopsy MICROSCOPIC DIAGNOSIS A. Large intestine, transverse polyp, biopsies: - Tubular adenoma B. Large intestine, terminal ileum: * Benign ileal mucosa without active inflammation or architectural distortion MICROSCOPIC DESCRIPTION Slides are reviewed. GROSS DESCRIPTION A. Received in fixative is one container labeled with the patient's name and designated "Transverse colon polyp biopsy." The specimen consists of one irregular fragment of garcia tissue that measures 0.6 cm. The specimen is totally submitted in one cassette. B. Received in fixative is one container labeled with the patient's name and designated "Terminal ileum biopsy." The specimen consists of two irregular fragments of garcia tissue, each measuring 0.5 cm. The specimen is totally submitted in one cassette. MO 12/23/2024 CPT:47576x2
--- NOTE | 2024-12-23 08:22 | OP.COLON_ITS ---
Patient Name: Teresa Cash Procedure Date: 12/23/2024 7:52 AM Date of : 1975 Age: 49 Procedure: Colonoscopy Indications: Screening for colorectal malignant neoplasm Providers: DO Patrice Quevedo MD: Halima Zuniga Medicines: Monitored Anesthesia Care Patient Profile: This is a 49 year old female. Refer to note in patient chart for documentation of history and physical. Last Colonoscopy: several years ago. Complications: No immediate complications. Procedure: Pre-Anesthesia Assessment: - Prior to the procedure, a History and Physical was performed, and patient medications and allergies were reviewed. The patient is competent. The risks and benefits of the procedure and the sedation options and risks were discussed with the patient. All questions were answered and informed consent was obtained. Patient identification and proposed procedure were verified by the nurse in the pre-procedure area. Mental Status Examination: normal. Airway Examination: normal oropharyngeal airway and neck mobility. Respiratory Examination: clear to auscultation. CV Examination: normal. Prophylactic Antibiotics: The patient does not require prophylactic antibiotics. Prior Anticoagulants: The patient has taken no anticoagulant or antiplatelet agents. ASA Grade Assessment: II - A patient with mild systemic disease. After reviewing the risks and benefits, the patient was deemed in satisfactory condition to undergo the procedure. The anesthesia plan was to use monitored anesthesia care (MAC). Immediately prior to administration of medications, the patient was re-assessed for adequacy to receive sedatives. The heart rate, respiratory rate, oxygen saturations, blood pressure, adequacy of pulmonary ventilation, and response to care were monitored throughout the procedure. The physical status of the patient was re-assessed after the procedure. After I obtained informed consent, the scope was passed under direct vision. Throughout the procedure, the patient's blood pressure, pulse, and oxygen saturations were monitored continuously. The colonoscope was introduced through the anus and advanced to the terminal ileum. The colonoscopy was performed without difficulty. The patient tolerated the procedure well. The quality of the bowel preparation was adequate. The terminal ileum, ileocecal valve, appendiceal orifice, and rectum were photographed. Scope In: 8:01:36 AM Scope Withdrawal Time 0 hours 7 minutes 52 seconds Scope Out: 8:16:20 AM Total Procedure Duration Time 0 hours 14 minutes 44 seconds Findings: The perianal and digital rectal examinations were normal. A 6 mm polyp was found in the transverse colon. The polyp was sessile. The polyp was removed with a jumbo cold forceps. Resection and retrieval were complete. Verification of patient identification for the specimen was done. Estimated blood loss was minimal. A patchy area of the terminal ileum was congested. Biopsies were taken with a cold forceps for histology. Verification of patient identification for the specimen was done. Estimated blood loss was minimal. Impression: - One 6 mm polyp in the transverse colon, removed with a jumbo cold forceps. Resected and retrieved. - Congested mucosa in the terminal ileum. Biopsied. Recommendation: - Discharge patient to home. - Resume previous diet. - Continue present medications. - Await pathology results. - Repeat colonoscopy in 5 years for surveillance. Procedure Code(s): --- Professional --- 65310, Colonoscopy, flexible; with biopsy, single or multiple CPT copyright 2021 [employer]. All rights reserved. The codes documented in this report are preliminary and upon computer patternmaker review may be revised to meet current compliance requirements. Conrad Holt DO 12/23/2024 8:22:11 AM This report has been signed electronically. Number of Addenda: 0 Note Initiated On: 12/23/2024 7:52 AM
--- NOTE | 2024-12-23 08:22 | OP.PROVAT_ITS ---
12/23/2024 Jessenia Whitaker, Padmini-c Re : Colonoscopy procedure for Teresa Cash Dear [place] This procedure was performed on December. My impressions and recommendations are as follows: Impressions : - One 6 mm polyp in the transverse colon, removed with a jumbo cold forceps. Resected and retrieved. - Congested mucosa in the terminal ileum. Biopsied. Recommendations : - Discharge patient to home. - Resume previous diet. - Continue present medications. - Await pathology results. - Repeat colonoscopy in 5 years for surveillance. My findings are described in the full procedure note, which is enclosed. If I can be of further assistance, please feel free to contact me at . Sincerely, Conrad Holt, 12/23/2024 8:22:11 AM This report has been signed electronically.
--- NOTE | 2024-12-23 08:31 | PCM.POST.ANE ---
Anesthesia: Postop Eval I Current Vital Signs Temperature: 97.7 F Pulse Rate: 77 Blood Pressure: 94/60 Respiratory Rate: 16 Pulse Ox: 97 Oxygen Delivery Method: Room Air Assessment Airway patent: Yes Spontaneous unlabored respirations: Yes Mental status: Awake and Calm nausea: No Vomiting: No Anesthesia Complication: No Fluid Hydration Crystalloid volume administer (ml): 500 Total IV fluid infused: 500 Progress Note Anesthesia document: Postop Eval 1 completed: Yes
--- NOTE | 2024-12-23 13:02 | PCM.POSTANE2 ---
Anesthesia Postop Eval I Sum Postop Eval Completion status Anesthesia document: Postop Eval 1 completed: Yes Anesthesia Postop Eval I Summary Anesthesia Postop Eval I Summary: Anesthesia Postop Eval I: Assessment Summary Airway patent Yes 12/23/24 08:31 [email or web address] Spontaneous unlabored Yes 12/23/24 08:31 [email or web address] respirations Mental status Awake,Calm 12/23/24 08:31 [email or web address] nausea No 12/23/24 08:31 [email or web address] Vomiting No 12/23/24 08:31 [email or web address] Anesthesia Postop Eval I: Fluid Summary Crystalloid volume administer 500 12/23/24 08:31 [email or web address] (ml) Colloids volume administered ( ml) Blood Product volume administered (ml) Total IV fluid infused 500 12/23/24 08:31 [email or web address] Anesthesia Postop Eval I: Summary Notes Anesthesia Complication No 12/23/24 08:31 [email or web address] Anesthesia Complication Comment: Post-operative progress note Anesthesia: Postop Eval II Evaluation Mental status: Awake Pain Level: 0 nausea: No Vomiting: No Complications Anesthesia Complication: No
== END 2024-12-23 09:08 | disposition home or self-care (01) ==
LOC: EN 06:29 → AC 06:29
PROVIDERS: Student in an Organized Health Care Education/Training Program; PCP Nurse Practitioner Family; Referring Provider Nurse Practitioner Family; Visit Provider Internal Medicine Gastroenterology
DX: Z12.11 Encounter for screening for malignant neoplasm of colon (principal); N18.4 Chronic kidney disease, stage 4 (severe); I12.9 Hypertensive chronic kidney disease with stage 1 through stage 4 chronic kidney disease, or unspecified chronic kidney disease; K59.01 Slow transit constipation; D12.3 Benign neoplasm of transverse colon; Z79.899 Other long term (current) drug therapy
CPT/HCPCS: 45380; 81025; 88305; J2405

== ENCOUNTER → 2025-01-18 | Outpatient (CLI) | payer BC, SELFPAY ==
--- NOTE | 2025-01-18 16:29 | RAD_ITS ---
PROCEDURE: FOOT MIN 3 VIEWS 01/18/2025 REASON FOR EXAM: Left foot pain plantar/1st metatarsal. No injury. TECHNIQUE: Procedure Code: RADFO Modality: DX Procedure: FOOT MIN 3 VIEWS Laterality: Left COMPARISON: None. FINDINGS: BONES: No acute fracture or focal osseous lesion. Small plantar calcaneal spur. JOINTS: No dislocation. Mild degenerative changes of the 1st metatarsophalangeal joint. SOFT TISSUES: The soft tissues are unremarkable. RAD/Foot min 3 Views IMPRESSION: 1. No acute osseous abnormality. 2. 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 Reading Location: [id number]
== END | disposition home or self-care (01) ==
LOC: MTRAD 16:29
PROVIDERS: PCP Nurse Practitioner Family; Referring Provider Physician Assistant; Visit Provider Physician Assistant
DX: M79.672 Pain in left foot (principal)
CPT/HCPCS: 73630

== ENCOUNTER → 2025-02-09 | Outpatient (CLI) | payer BC, SELFPAY ==
--- NOTE | 2025-02-09 15:54 | CT_ITS ---
PROCEDURE: CT ABD/PELVIS W/WO CONTRAST 02/09/2025 REASON FOR EXAM: FLANK PAIN, PERINEPHRIC STRANDING ON LAST CT TECHNIQUE: Procedure Code: [id number] Modality: CT Procedure: CT ABD/PELVIS W/WO CONTRAST Coronal and Sagittal reconstruction series were provided. CONTRAST: Isovue 370 VOLUME: 100 mL One or more dose reduction techniques were used (e.g., Automated exposure control, adjustment of the mA and/or kV according to patient size, use of iterative reconstruction technique. RADIATION DOSE SUMMARY: CTDlvol: 65.56 mGy DLP: 2882.04 mGycm COMPARISON: None FINDINGS: Lung bases: Mild dependent atelectasis Liver: Normal size. No mass. Gallbladder: Unremarkable Spleen: Normal size. Pancreas: Normal size without evidence of mass surrounding inflammation or ductal dilation. Adrenals: Unremarkable Kidneys: There is mild dilatation of the right renal calices in the right renal pelvis without obstructing stone. The right ureter is of normal course and caliber. No significant perinephric or María ureteral inflammatory stranding noted. Left kidney is free of obstructive uropathy. Bladder: Distends normally Reproductive Organs: The uterus is present, the endometrium can not be accurately evaluated with CT. No suspicious mass lesion identified. There is no suspicious solid or cystic lesions within the pelvis, no free fluid Bowel: No CT evidence of obstruction or acute inflammation, evidence of previous appendectomy Lymph nodes: No suspicious mesenteric, or retroperitoneal adenopathy Vasculature: The abdominal aorta and IVC are normal. Peritoneum / Retroperitoneum: No free fluid or air Bones: Mild degenerative bony changes CT/CT Abd/Pelvis W/WO Contrast IMPRESSION: Mild, nonspecific dilatation of the right renal calices and right renal pelvis without obstructing stone. The right ureter is of normal course and caliber. No perinephric or María ureteral inflammatory strand ing noted. Unremarkable left kidney, no obstructive uropathy. Neither kidney shows eviden ce of solid renal lesion No free intraperitoneal fluid, air, or suspicious adenopathy, evidence of remot e appendectomy Mild degenerative bony changes Reading Location: [facility]
--- OUTSIDE RECORDS SUMMARY | 2025-02-09 16:12 | XMS RPT_ITS | CCD ---
Author Organization [facility] Care Team Providers Care Automobile Rental Clerk Name Role Phone Galilea Whitaker Unavailable Unavailable Unavailable Unavailable GALILEA WHITAKER Unavailable Unavailable HASAN, JACKSON Unavailable Unavailable HASAN JACKSON Unavailable Unavailable HASSARAH JACKSON Unavailable Unavailable GALILEA WHITAKER Unavailable Unavailable Galilea Whitaker Primary Care Pro vider Unavailable Galilea Whitaker Primary Care Pro vider Radha Mejias Unavailable Aminata Caputo Unavailable [phone] Chery Saez Unavailable [phone] Galilea Whitaker Unavailable Galilea Whitaker Unavailable Galilea Whitaker CNP Primary Care Provider Radah Mejias DO Unavailable Aminata Caputo MD Unavailable Galilea Whitaker CNP Unavailable Unavailable Primary Care Provider Unavailabl e Radha Mejias DO Unavailable Aminata Caputo MD Unavailable Galilea Whitaker CNP Unavailable Sherman COIL TAPER, Galilea King Primary Care Provider GALILEA WHITAKER Referring Unavailable GALILEA WHITAKER Attending Unavailable SHERMAN, GALILEA KING Primary Care Unavailable CHARISSA Mclain Attending Provider [phone] Dr. Yaa Chase Attending Provider Unavailable Primary Care Provider UnavailCHARISSA Nguyen Attending Provider Dr. Yaa Chase Attending Provider [phone] GALIELA WHITAKER Primary Care Provider Unavail able Unavailable Primary Care Provider Unavailabl e Radha Mejias DO Unavailable Aminata Caputo MD Unavailable Sherman COIL TAPER, Galilea King Unavailable Sherman COIL TAPER, Galilea King Primary Care Provider Sherman COIL TAPER, Galilea Magana Unavailable Sherman COIL TAPER, Galilea M Primary Care Provider Sherman COIL TAPER, Galilea King Primary Care Provider Dr. Yaa Chase Attending Provider [phone] GALILEA WHITAKER Primary Care Provider Unavail able GALILEA WHITAKER Referring Provider Unavailabl e Sherman COIL TAPER, Galilea M Primary Care Provider Sherman COIL TAPER, Galilea King Unavailable Sherman COIL TAPER, Galilea King Unavailable Care Physician, No Primary Primary Care Provider Unavailable Care Physician, No Primary Referring Provider Un available Linda OWENS-C, Mable Attending Provider Dr. Yaa Chase MD Attending Provider Dr. Yaa Chase MD Referring Provider Dr. Bonnie Weber DO Emergency Provider ERICA WHITAKERINE Primary Care Provider Dr. Diego Carranza DOyn Admit Provider Dillon VAN, Dr. Jain Other Provider Casey DE, Dr. Ilya Torres Attending Provider Brannon DE, Dr. Aburto Other Provider Casey DE, Dr. Ilya Torres Other Provider Isa DE, Dr. Weeks Attending Provider Dillon VAN, Dr. Jain Referring Provider VANIA GUNTER Attending Provider VANIA GUNTER Referring Provider [phone] Sherman DEVELOPMENTAL BEHAVIORAL PHYSICIAN-CGalilea Primary Care Provider SYSTEM, PROVIDER NOT IN Referring Unavaila ble SYSTEM, PROVIDER NOT IN Attending Unavaila ble GALILEA WHITAKER Primary Care Unavailable GALILEA WHITAKER Primary Care Unavailable SAMEERA GONZALES Attending Unavailab SAMEERA Estevez Admitting Unavailab GALILEA Rizvi Primary Care Unavailable BELLA WANG Attending Unavailab GALILEA Rizvi Primary Care Unavailable BELLA WANG Attending Unavailab GALILEA Rizvi Primary Care Unavailable Galilea Marcelo Primary Care Provider Galilea Marcelo Referring Provider [phone] Richard Pardo Attending Provider GALILEA WHITAKER Primary [...] Attending Unavailable GALILEA WHITAKER Primary Care Unavailable SHERMANGALILEA MILLER Attending Unavailable SHERMAN, GALILEAJEANNE KING Primary Care Unavailable SHERMAN, GALILEA KING Primary Care Unavailable DONALD CUMMINS Attending Unavailable VANIA GUNTER Attending Unavailable SHERMAN, GALILEA KING Primary Care Unavailable SHERMAN, GALILEAJEANNE KING Attending Unavailable SHERMAN, GALILEA KING Primary Care Unavailable SAMEERA GONZALES Attending Unavailab le SHERMAN, GALILEA HAWKINS KING Primary Care Unavailable SAMEERA GONZALES Attending Unavailab le SHERMAN, GALILEA TERESA FERNANDO Primary Care Unavailable SHERMAN, GALILEAJEANNE KING Primary Care Unavailable VANIA GUNTER Attending Unavailable SHERMAN, GALILEA TERESA KING Primary Care Unavailable GALILEA WHITAKER Attending Unavailable Sherman DEVELOPMENTAL BEHAVIORAL PHYSICIAN-C, Galilea Magana Primary Care Physician Sherman DEVELOPMENTAL BEHAVIORAL PHYSICIAN-CGalilea Referring Provider Cedric JENNINGSCiRchard Attending Physician Kumar DEVELOPMENTAL BEHAVIORAL PHYSICIAN-CPaola Attending Physician Kumar DEVELOPMENTAL BEHAVIORAL PHYSICIAN-CPaola Referring Provider Care Physician, No Primary Primary Care Unava ilable Yaa Chase Referring Unavailable Yaa Chase Attending Unavailable BETTY, CH Referring Unavailable BETTY, CH Attending Unavailable Galilea Whitaker Primary Care Unavailable Susy Carranza Consulting Unavailable Susy Carranza Admitting Unavailable BETTY, CH Primary Care Unavailable Ilya Peña Attending Unavailable Brannon, Natjames Consulting Unavaila Conrad Moore Attending Unavailable Galilea Whitaker Referring Unavailable Galilea Whitaker Primary Care Unavailable Susy Carranza Attending Unavailable Dillon Susy Consulting Unavailable BETTY, CH Primary Care Unavailable Susy Carranza Admitting Unavailable Ilya Peña Attending Unavailable Brannon, Natthhelgat Consulting Unavaila ble Ilya Peña Consulting Unavailable Care Physician, No Primary Referring Unava ilable Care Physician, No Primary Primary Care Unava ilable Mable Mckeon NP Attending Unavailable Galilea Whitaker Primary Care Unavailable Sherman, Galilea M Referring Unavailable Richard Steele Attending Unavailable Paola Heath Attending Unavailable Galilea Whitaker Referring Unavailable Galilea Whitaker Primary Care Unavailable Care Physician, No Primary Primary Care Unava ilable Lizbeth Guzman Attending Unavailable Care Physician, No Primary Referring Unava ilable Micky Moss Attending Unavailable Susy Carranza Referring Unavailable Friend, Conrad Attending Unavailable Friend, Conrad Consulting Unavailable Galilea Whitaker M Referring Unavailable Galilea Whitaker Primary Care Unavailable Paola Heath Referring Unavailable Paola Heath Attending Unavailable Galilea Whitaker Primary Care Unavailable Paola Heath Referring Unavailable Paola Heath Attending Unavailable Gaillea Whitaker Primary Care Unavailable Allergies Allergy Classification Reported Allergen(s) Allergy Type Date of Onset Reaction(s) Facility (20 sources) amoxicillin; Translations: [AMOXICILLIN] Propensity to adverse reactions to drug 04-05-19 15 Rash [facility] Work Phone: (20 sources) apple extract; Translations: [APPLE] Propensity to adverse reactions to drug 01-15-20 16 Itching [facility] Work Phone: (20 sources) black pepper preparation; Translations: [BLACK PEPPER] Propensity to adverse reactions to drug 01-15-20 16 Swelling, Rash [facility] Work Phone: (20 sources) cephalexin; Translations: [CEPHALEXIN] Propensity to adverse reactions to drug 07-18-19 10 Rash [facility] Work Phone: (20 sources) clarithromycin; Translations: [CLARITHROMYCIN] Propensity to adverse reactions to drug 07-18-19 10 Rash, Other: See Comments [facility] Work Phone: (20 sources) erythromycin; Translations: [ERYTHROMYCIN] Propensity to adverse reactions to drug 07-18-19 10 GI Intolerance, Diarrhea, GI Upset, Hives, Other: See Comments, Vomiting [facility] Work Phone: (20 sources) garlic preparation; Translations: [GARLIC] Propensity to adverse reactions to drug 01-15-20 16 Swelling, Rash [facility] Work Phone: (20 sources) Penicillins; Translations: [PENICILLINS] Propensity to adverse reactions to drug 20 15 Rash [facility] Work Phone: (20 sources) pork allergenic extract; Translations: [PORK DERIVED (PORCINE)] Propensity to adverse reactions to drug 01-15-20 16 Itching [facility] Work Phone: (20 sources) INFLUENZA VIRUS VACCINES; Translations: [INFLUENZA VIRUS VACCINES] Propensity to adverse reactions to drug 04-05-19 16 GI Intolerance [facility] Work Phone: (20 sources) MAPLE FLAVOR; Translations: [MAPLE FLAVOR] Propensity to adverse reactions to drug 01-15-20 16 Itching [facility] Work Phone: (3 sources) Penicillins Propensity to adverse reactions to drug -24-20 15 Rash [facility] (3 sources) Influenza Virus Vaccines Propensity to adverse reactions to drug 04-05-19 16 GI Intolerance [facility] Work Phone: (10 sources) Penicillins Propensity to adverse reactions to drug -24-20 15 Rash [facility] (20 sources) Influenza Virus Vaccines Propensity to adverse reactions to drug --20 16 GI Intolerance [facility] (10 sources) Penicillins Propensity to adverse reactions to drug --20 15 [facility] (1 source) Clarithromycin Drug Allergy 12-24-19 25 [facility] Repository (1 source) Erythromycin Drug Allergy 12-24-19 25 [facility] Repository Medications Current Medications Medication Drug Class(es) [...] Start: 05-14-2022 take 2 tablets by mo [facility] once daily in the morning buPROPion (WELLBUTRIN XL) 150 MG 24 hr tablet Take 2 (two) tablets (300 mg total) by mouth daily IN THE MORNING . 0 05/14/2022 Active Start: 05-14-2022 take 1 tablet by chacho once daily in the morning buPROPion (WELLBUTRIN [...] Adrenergic Receptor Agonist Start: 11-19-19 End: 11-19-19 take 1 drop(s) into the eye(s) twice [...] 10 mL injection (DEFINITY) polyethylene glycol 3350 12452 mg powder for oral solution (20 sources) [...] B12 Start: 12-15-2019 take 1 capsule by [facility] once daily Start: 10-08-2018 End: 10-03-2019 cyanocobalamin (B-12) inject ion 1,000 mcg take 5 tablets by [facility] once daily cyanocobalamin (B-12) 1000 MCG tablet [...] TABLET PO EVERY 6 HOURS NEEDED 10 3 January 08, 2020 January 11, 2020 1:02am [id number] 200 actuat albuterol 0.09 mg/actuat metered dose [...] Take by mouth once d aily. ergocalciferol 29586 unt oral capsule (5 sources) Provitamin D2 Compound Start: 04-11-19 18 End: 03-16-19 19 take 1 capsule by mouth every week ergocalciferol (VITAMIN D2) 50,000 unit capsule Indications: Vitamin D deficiency Take 1 (one) capsule (50,000 Units total) by mouth once a week. 12 capsule 1 04/10/2017 03/16/2018 Discontinued escitalopram 10 mg oral tablet (3 sources) Serotonin Reuptake Inhibitor Start: 05-16-19 18 End: 10-15-19 18 take 1 tablet by [...] tablets,dose pack Discontinued 0 PO .COMPLEX 30 0 November 15, 2021 11:00pm January 23, 2023 9:52am take TWO 150 mg tablets of nirmatrelvir with ONE 100 mg tablet of ritonavir twice daily for 5 days PO Start: 11-16-2021 End: 01-23-2023 Nirmatrelvir-Ritonavir (Paxl ovid (Eua)) 300 mg (150 mg x 2)-100 mg tablets,dose pack Discontinued 0 PO .COMPLEX 30 0 November 16, 2021 12:00am January 23, 2023 10:52am take TWO 150 mg tablets of nirmatrelvir with ONE 100 mg tablet of ritonavir twice daily for 5 days PO Start: 11-16-2021 End: 01-23-2023 Nirmatrelvir-Ritonavir (Paxl ovid (Eua)) 300 mg (150 mg x 2)-100 mg tablets,dose pack Discontinued 0 PO .COMPLEX November 16, 2021 12:00am January 23, 2023 [...] above: Take by mouth. polyethylene glycol 3350 [id number] mg / potassium chloride 2970 mg / sodium bicarbonate 6740 mg / sodium chloride 5860 mg / sodium sulfate 55955 mg powder for oral solution (1 source) [...] 1 g PO TWICE A DAY 10 0 April 20, 2023 12:00am January 27, 2024 8:39am tranexamic acid 650 mg oral tablet (7 sources) Antifibrinolytic Agent Start: 12-20-2020 End: 08-06-2021 Tranexamic Acid (Lysteda) 650 mg tablet Discontinued 1300 mg PO THREE TIMES A DAY 30 5 12 December 20, 2020 12:00am August 06, 2021 [...] knee] Chronic Other aftercare (1 source) Other custodial (current) drug therapy; Translations: [On angiotensin receptor [...] (gaseous)] Onset: 5 Episodic Other gastrointestinal disorders (2 sources) Slow transit constipation; Translations: [Slow transit constipation] Onset: 5 Episodic Other gastrointestinal disorders (1 [...] weight gain; Translations: [Abnormal weight gain] Onset: 5 Episodic Other screening for suspected conditions (not mental disorders or infectious disease) (4 sources) Encounter for screening for malignant neoplasm of colon; Translations: [Encounter for screening mammogram for malignant neoplasm of breast] Onset: 4 Episodic Other skin disorders (1 source) Fissure in skin; Translations: [Skin fissures] Episodic Other skin disorders (4 sources) Loss of hair; Translations: [Nonscarring hair loss, unspecified] Episodic Comment on above: resolved/saw derm Other upper respiratory infections (4 sources) Maxillary sinusitis; Translations: [Chronic maxillary sinusitis] 10-10-2024 Chronic Other upper respiratory infections (20 sources) Acute pharyngitis; Translations: [Acute pharyngitis, unspecified] Onset: 5 Episodic Otitis media and related conditions (1 [...] unspecified joint] Onset: 01-14-2023 01-14-2023 Episodic Other skin disorders (12 sources) Epidermoid [...] Test Name Value Interpretation Reference Range Facility Colonoscopy Reporton 025 Colonoscopy Report [facility] Medical Records Department [address] [place] [address] Colonoscopy Report MR#: [id number] Acct: [id number] Name: TERESA CASH Rep #: [id number] : 1975 49 From: Conrad Holt DO PCP: LAMAR Scales Status:[facility] Patient Name: Teresa Cash Procedure Date: 12/23/2024 7:52 AM Date of : 1975 Age: 49 Procedure: Colonoscopy Indications: Screening for colorectal malignant neoplasm Providers: Conrad Holt DO Referring MD: Lamar Zuniga Medicines: Monitored Anesthesia Care Patient Profile: This is a 49 year old female. Refer to note in patient chart for documentation of history and physical. Last Colonoscopy: several years ago. Complications: No immediate complications. Procedure: Pre-Anesthesia Assessment: - Prior to the procedure, a History and Physical was performed, and patient medications and allergies were reviewed. The patient is competent. The risks and benefits of the procedure and the sedation options and risks were discussed with the patient. All questions were answered and informed consent was obtained. Patient identification and proposed procedure were verified by the nurse in the pre-procedure area. Mental Status Examination: normal. Airway Examination: normal oropharyngeal airway and neck mobility. Respiratory Examination: clear to auscultation. CV Examination: normal. Prophylactic Antibiotics: The patient does not require prophylactic antibiotics. Prior Anticoagulants: The patient has taken no anticoagulant or antiplatelet agents. ASA Grade Assessment: II - A patient with mild systemic disease. After reviewing the risks and benefits, the patient was deemed in satisfactory condition to undergo the procedure. The anesthesia plan was to use monitored anesthesia care (MAC). Immediately prior to administration of medications, the patient was re-assessed for adequacy to receive sedatives. The heart rate, respiratory rate, oxygen saturations, blood pressure, adequacy of pulmonary ventilation, and response to care were monitored throughout the procedure. The physical status of the patient was re-assessed after the procedure. After I obtained informed consent, the scope was passed under direct vision. Throughout the procedure, the patient's blood pressure, pulse, and oxygen saturations were monitored continuously. The colonoscope was introduced through the anus and advanced to the terminal ileum. The colonoscopy was performed without difficulty. The patient tolerated the procedure well. The quality of the bowel preparation was adequate. The terminal ileum, ileocecal valve, appendiceal orifice, and rectum were photographed. Scope In: 8:01:36 AM Scope Withdrawal Time 0 hours 7 minutes 52 seconds Scope Out: 8:16:20 AM Total Procedure Duration Time 0 hours 14 minutes 44 seconds Findings: The perianal and digital rectal examinations were normal. A 6 mm polyp was found in the transverse colon. The polyp was sessile. The polyp was removed with a jumbo cold forceps. Resection and retrieval were complete. Verification of patient identification for the specimen was done. Estimated blood loss was minimal. A patchy area of the terminal ileum was congested. Biopsies were taken with a cold forceps for histology. Verification of patient identification for the specimen was done. Estimated blood loss was minimal. Impression: - One 6 mm polyp in the transverse colon, removed with a jumbo cold forceps. Resected and retrieved. - Congested mucosa in the terminal ileum. Biopsied. Recommendation: - Discharge patient to home. - Resume previous diet. - Continue present medications. - Await pathology results. - Repeat colonoscopy in 5 years for surveillance. Procedure Code(s): --- Professional --- 01816, Colonoscopy, flexible; with biopsy, single or multiple CPT copyright 2021 [employer]. All rights reserved. The codes documented in this report are preliminary and upon will call clerk review may be revised to meet current compliance requirements. Conrad Holt DO 12/23/2024 8:22:11 AM This report has been signed electronically. Number of Addenda: 0 Note Initiated On: 12/23/2024 7:52 AM 12/23/24 0822 Date Conrad Holt DO Cosigner Signature: Date (if indicated) CC: LAMAR Whitaker; Conrad Holt DO Date Dictated: 12/23/24 0752 Date Transcribed: Grinding Room Inspector: RF Signed [facility] MR/OP.PROVATon 12-23-2024 MR/OP.PROVAT [facility] Medical Records Department [address] [place] [address] Provation Physician Letter MR#: [id number] Acct: [id number] Name: TERESA CASH Rep #: [id number] : 1975 49 From: Conrad Holt DO PCP: LAMAR Scales Status:[facility] 12/23/2024 Lamar Zuniga Re : Colonoscopy procedure for Teresa Cash Dear Sherman This procedure was performed on December. My impressions and recommendations are as follows: Impressions : - One 6 mm polyp in the transverse colon, removed with a jumbo cold forceps. Resected and retrieved. - Congested mucosa in the terminal ileum. Biopsied. Recommendations : - Discharge patient to home. - Resume previous diet. - Continue present medications. - Await pathology results. - Repeat colonoscopy in 5 years for surveillance. My findings are described in the full procedure note, which is enclosed. If I can be of further assistance, please feel free to contact me at . Sincerely, Conrad Holt DO 12/23/2024 8:22:11 AM This report has been signed electronically. 12/23/24 0822 Date Conrad Holt DO Cosigner Signature: Date (if indicated) CC: DEVELOPMENTAL BEHAVIORAL PHYSICIANKacey Holt DO Date Dictated: 12/23/24 0752 Date Transcribed: Grinding Room Inspector: RF Signed [facility] MR/POSTOP.ANEmarci 12-23-2024 MR/POSTOP.[facility] Medical Records Department [address] [place] [address] Anesthesia Postop Eval I 12/23/24830 MR#: [id number] Acct: [id number] Name: TERESA CASH Rep #: [id number] : 1975 49 From: Pineda Amaya PCP: DICK ScalesC Status:[facility] Y Race: C Location: [place] [address] Anesthesia: Postop Eval I Current Vital Signs Temperature: 97.7 F Pulse Rate: 77 Blood Pressure: 94/60 Respiratory Rate: 16 Pulse Ox: 97 Oxygen Delivery Method: Room Air Assessment Airway patent: Yes Spontaneous unlabored respirations: Yes Mental status: Awake and Calm nausea: No Vomiting: No Anesthesia Complication: No Fluid Hydration Crystalloid volume administer (ml): 500 Total IV fluid infused: 500 Progress Note Anesthesia document: Postop Eval 1 completed: Yes 12/23/24830 Date Pineda Hamm Signature: Date CC: Signed Normal [facility] MR/[id number] 12-23-2024 [facility] Medical Records Department [address] [place] [id number] Anesthesia Postop Eval II 12/23/24 1302 MR#: [id number] Acct: [id number] Name: TERESA CASH Rep #: [id number] : 1975 49 From: Chana Shin CRNA PCP: Galilea Whitaker NP-C Status:[facility] Y Race: C Location: [place] Anesthesia Postop Eval I Sum Postop Eval Completion status Anesthesia document: Postop Eval 1 completed: Yes Anesthesia Postop Eval I Summary Anesthesia Postop Eval I Summary: Anesthesia Postop Eval I: Assessment Summary Airway patent Yes 12/23/24 08:31 [email or web address] Spontaneous unlabored Yes 12/23/24 08:31 [email or web address] respirations Mental status Awake,Calm 12/23/24 08:31 [email or web address] nausea No 12/23/24 08:31 [email or web address] Vomiting No 12/23/24 08:31 [email or web address] Anesthesia Postop Eval I: Fluid Summary Crystalloid volume administer 500 12/23/24 08:31 [email or web address] (ml) Colloids volume administered ( ml) Blood Product volume administered (ml) Total IV fluid infused 500 12/23/24 08:31 [email or web address] Anesthesia Postop Eval I: Summary Notes Anesthesia Complication No 12/23/24 08:31 [email or web address] Anesthesia Complication Comment: Post-operative progress note Anesthesia: Postop Eval II Evaluation Mental status: Awake Pain Level: 0 nausea: No Vomiting: No Complications Anesthesia Complication: No 12/23/24 1303 Date Chana Guidryigner Signature: Date CC: Signed Normal [facility] ,Urineon 12-23-2024 Beta HCG ( test) Ql (U) Negative [facility] Comment on above: Result Comment: Very dilute urine specimens, as indicated by a low specific gravity, may not contain assisted sales representative levels of hCG. If is still suspected, a first morning urine specimen should be collected 48 hours later and tested. Performed By: #### L [phone] ####[facility] [id number] [facility] [place], [address] MR/Jethro 12-22-2024 MR/PATRICK.DONNA [facility] Medical Records Department [address] [place] [address] PAT - Anesthesia 12/22/24 1439 MR#: [id number] Acct: [id number] Name: SYLWIATERESALILIA JORGE Rep #: [id number] : 1975 49 From: James Gregg MD PCP: Galilea Whitaker, DEVELOPMENTAL BEHAVIORAL PHYSICIAN-C Status:PRE SDC Y Race: C Location: EN Pre-Assessment Diagnosis/Proposed Procedure Planned Operative Procedure(s): COLONOSCOPY Anesthesia History Anesthesia History - acid leveler: Anesthesia History - acid leveler Hx Hospitalization Yes: 02/2024 STAGE 4 KIDNEY 12/21/24 14:48 FAILURE Any Problems With Anesthesia Yes: SLEEPY 12/21/24 14:48 Cholinesterase deficiency No 12/21/24 14:48 You/Your Family Experience No 12/21/24 14:48 fever (hyperthermia) with Relationship Recent Exposure to Contagious Disease Does patient have nerve No 12/21/24 14:48 stimulator Patient instructed to have device shut off --Does patient have Pacemaker or ICD? When Was Last Pacemaker Check QUESTION #4 FULL TEXT: You/Your Family Experience fever (hyperthermia) with Anesthesia Last Oral Intake Last Oral intake: Last Oral Intake NPO since Meds taken in AM with sips of water? Meds patient instructed to take am of surgery PONV PONV - acid leveler: PONV - acid leveler Female Yes 12/21/24 14:48 HX of Motion Sickness No 12/21/24 14:48 HX of N/V After Surgery No 12/21/24 14:48 Non-Smoker Yes 12/21/24 14:48 Duration of Surgery greater No 12/21/24 14:48 than 60 minutes Number of Risk Factors 2 12/21/24 14:48 PONV Score Moderate Risk 12/21/24 14:48 Height Weight Height Weight: Anesthesia: Height Weight Height 5 ft 8 in 10/20/24 13:32 Respiratory Assessment Respiratory Assessment - acid leveler: Respiratory Tract Infection Hx - acid leveler Hx Respiratory Tract Infection No 12/21/24 14:48 STOP Sleep Apnea STOP Sleep Apnea - acid leveler: STOP Sleep Apnea - acid leveler Hx Hypertension Yes: CONTROLLED WITH MEDS 12/21/24 14:48 Hx Sleep Apnea No 12/21/24 14:48 CPAP BIPAP Do you snore loudly (louder No 12/21/24 14:48 than talking or can be heard Do you often feel tired/ No 12/21/24 14:48 fatigued/ sleepy during daytime? Has anyone observed you stop No 12/21/24 14:48 breathing during sleep? STOP Results Negative 12/21/24 14:48 QUESTION #5 FULL TEXT : Do you snore loudly (louder than talking or can be heard through closed doors)? 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 Specify any problems Hx of Preganancy in last 3 No 12/21/24 14:48 Months Nurse Filling Out Transfusion [email or web address] 12/21/24 14:48 Questions: Date: 12/21/24 12/21/24 14:48 Time: 14:52 12/21/24 14:48 Patient unable to answer at this time (ie. 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 leveler Hx Now Gestational Age (in weeks): EDC: Hx Hx Para Hx Section SAB No 12/21/24 14:48 Does the father of the baby or his family experience fever w Father of the baby Malignant Hypertension history comment [facility] Medical History (Updated 12/21/24 @ 15:03 by Hugh King) Wears glasses Alcohol use Arthritis Anemia Back pain Vocal cord dysfunction Non-smoker Colonoscopy planned Sleep paralysis History of Holter monitoring History of echocardiogram Cardiology follow-up encounter Family history of breast cancer Family history of colon cancer in father Family history of bladder cancer Atrophic vaginitis Hot flashes Fatigue Hair loss Chronic gastritis Ganglion cyst Ovarian cyst History of depression Hypertension Home Medications ???Medication ???Instructions ???Recorded ???Last Taken ???Type cholecalciferol (vitamin D3) 250 250 mcg PO QWEEK REPLACEMENT 12/14 Unknown History mcg (10,000 unit) capsule cyanocobalamin (vitamin B-12) 1,000 (more content not included)... Normal [facility] Abdomen Single Viewon 2024 Abdomen Single View [facility] [address] [place], [place] [address] Abdomen Single View MR#: [id number] Acct: [id number] Name: TERESA CASH Rep #: [id number] : 1975 F 49 From: Chase Arredondo MD PCP: LAMAR Scales Status: REG CLI Study: Abdomen Single View Date of Exam: 12/09/24 Exam# [id number] Ordering Dr: Paola Heath PROCEDURE: ABDOMEN SINGLE [...] IMPRESSION: No Sitz markers identified. Reading Location: [facility] CC: DEVELOPMENTAL BEHAVIORAL PHYSICIAN-Amos Whitaker; ROMAN-C Paola Heath Grinding Room Inspector: Signed Normal [facility] Abdomen Single Viewon 2024 Abdomen Single View [facility] [address] [place] [address] Abdomen Single View MR#: [id number] Acct: [id number] Name: TERESA CASH Rep #: [id number] : 1975 F 49 From: Yung Reynoso PCP: LAMAR Scales Status: REG CLI Study: Abdomen Single View Date of Exam: 12/07/24 Exam# [id number] Ordering Dr: Paola Heath PROCEDURE: ABDOMEN SINGLE [...] No mass or mass effect is seen. Prpd-at-jzozpykw degenerative changes of the visualized spine are seen. Mild asymmetric left sacroiliac joint degenerative changes also noted. Reading Location: [place] [address] CC: LAMAR Whitaker; LAMAR Heath Grinding Room Inspector: Signed Normal [facility] Gastroenterology Visit Repor ton 11-29-2024 Gastroenterology Visit Report [facility]ology [address] [place] [address] OFFICE VISIT Date of Service: 11/29/24 MR#: [id number] Acct: [id number] Name: TERESA CASH Rep #: [id number] : 1975 Provider: LAMAR montgomery Age/Sex: 49/F [place] [facility] Status: Signed Intake Vital Signs 10/10/24 09:44 [...] GASTRITIS Chief Complaint: Headache, Dizzy, Nausea Manager Lpn Required: No Accompanied by: Self Is patient [...] at home: Yes 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 Normal [facility] CREATININE, 24 HOUR URINEon 11-10-2024 CREATININE, 24 HOUR URINE 1.38 g/24 h Normal 0.50-2.15 [facility] Comment on above: Order Comment: SPLIT 11/05/2024 FROM [id number]:NOFASTING: NO Result Comment: URIN E VOLUME: 2650/24 Performed By: #### 9 01, 07885, 2763, 01856, 02738 #### [facility] [address], [address] [place] [address] Dot Compliance Coordinator: Otto Conley MD T3, FREE 11-09-2024 Free T3 [Mass/Vol] 3.3 pg/mL Normal 2.3-4.2 [facility] Comment on above: Performed By: #### 3 4429, 5081, 899, 866 #### [facility] [address], [address] [place] [address] Dot Compliance Coordinator: Otto Conley MD T4, FREE 11-09-2024 Free T4 [Mass/Vol] 1.4 ng/dL Normal 0.8-1.8 [facility] Comment on above: Performed By: #### 3 4429, 5081, 899, 866 #### [facility] [place] [address] Dot Compliance Coordinator: Otto Conley MD THYROID PEROXIDASE ANTIBODIE Son 11-09-2024 THYROID PEROXIDASE ANTIBODIES 1 IU/mL Normal <9 [facility] Comment on above: Order Comment: FASTI NG:NO COLLECTION KIT GIVEN TO PATIENT. PATIENT ADVISED TO RETURN. FASTING: NO Performed By: #### 3 4429, 5081, 899, 866 #### [facility] [place] [address] Dot Compliance Coordinator: Otto Conley MD TSHon 11-09-2024 TSH Qn 0.98 m[IU]/L Normal [facility] Comment on above: Result Comment: Refe rence Range > or = 20 Years 0.40-4.50 Ranges First trimester 0.26-2.66 Second trimester 0.55-2.73 Third trimester 0.43-2.91 Performed By: #### 3 4429, 5081, 899, 866 #### [facility] [place] [address] Dot Compliance Coordinator: Otto Conley MD 25(OH)D3 [facility] 2024 25-hydroxyvitamin D3 [Mass/Vol] 36.0 ng/mL Normal 31.0-80.0 [facility] Comment on above: Order Comment: Speci men Type: BLOOD SPECIMEN Ordering Facility: External Submitter Address: , , Result Comment: Clas sification of 25 [place] Vitamin D status: Deficiency/Insufficiency: < or = 30 ng/ml. Sufficiency/Optimal Levels: 31-80 ng/mL Toxicity: > 100 ng/mL. Test performed by chemiluminescent immunoassay. Performed By: #### 1 989-3 #### [facility] CLIA [id number] [address] [place] [address] [place] CBC panel Auto (Bld)on 10-20 Erythrocyte distribution width (RBC) [Ratio] 11.8 % Normal 11.5-15.0 [facility] Comment on above: Order Comment: Lulu rao Type: BLOOD SPECIMEN Ordering Facility: External Submitter Address: , , Performed By: #### 5 8410-2 #### [facility] [id number] [address] [place] [address] [place] Hematocrit (Bld) [Volume fraction] 39.3 % Normal 36.0-46.0 [facility] Comment on above: Order Comment: Lulu rao Type: BLOOD SPECIMEN Ordering Facility: External Submitter Address: , , Performed By: #### 5 8410-2 #### [facility] [id number] [address] [place] [address] STATES OF [facility] Hemoglobin (Bld) [Mass/Vol] 13.5 g/dL Normal 11.5-15.5 [facility] Comment on above: Order Comment: Lulu rao Type: BLOOD SPECIMEN Ordering Facility: External Submitter Address: , , Performed By: #### 5 8410-2 #### [facility] [id number] [address] [place] [address] [place] MCH (RBC) [Entitic mass] 32.8 pg Normal 26.0-34.0 [facility] Comment on above: Order Comment: Lulu rao Type: BLOOD SPECIMEN Ordering Facility: External Submitter Address: , , Performed By: #### 5 8410-2 #### [facility] CLIA [id number] [address] [place] [address] [place] MCHC (RBC) [Mass/Vol] 34.4 g/dL Normal 30.5-36.0 [facility] Comment on above: Order Comment: Speci men Type: BLOOD SPECIMEN Ordering Facility: External Submitter Address: , , Performed By: #### 5 8410-2 #### [facility] CLIA [id number] [address] [place] [address] [place] MCV (RBC) [Entitic vol] 95.6 fL Normal 80.0-100.0 [facility] Comment on above: Order Comment: Speci men Type: BLOOD SPECIMEN Ordering Facility: External Submitter Address: , , Performed By: #### 5 8410-2 #### [facility] [id number] [address] [place] [address] [place] Nucleated RBC (Bld) [#/Vol] 10*3/uL Normal <0.01 [facility] Comment on above: Order Comment: Speci men Type: BLOOD SPECIMEN Ordering Facility: External Submitter Address: , , Performed By: #### 5 8410-2 #### [facility] CLIA [id number] [address] [place] [address] [place] Platelet mean volume (Bld) [Entitic vol] 9.3 fL Normal 9.0-12.7 [facility] Comment on above: Order Comment: Speci men Type: BLOOD SPECIMEN Ordering Facility: External Submitter Address: , , Performed By: #### 5 8410-2 #### [facility] CLIA [id number] [address] [place] [address] [place] Platelets (Bld) [#/Vol] 330 10*3/uL Normal 150-400 [facility] Comment on above: Order Comment: Speci men Type: BLOOD SPECIMEN Ordering Facility: External Submitter Address: , , Performed By: #### 5 8410-2 #### [facility] CLIA [id number] [address] [place] [address] [place] RBC (Bld) [#/Vol] 4.11 10*6/uL Normal 3.90-5.20 [facility] Comment on above: Order Comment: Speci men Type: BLOOD SPECIMEN Ordering Facility: External Submitter Address: , , Performed By: #### 5 8410-2 #### [facility] CLIA [id number] [address] [place] [address] [place] WBC (Bld) [#/Vol] 5.08 10*3/uL Normal 3.70-11.00 [facility] Comment on above: Order Comment: Speci men Type: BLOOD SPECIMEN Ordering Facility: External Submitter Address: , , Performed By: #### 5 8410-2 #### [facility] CLIA [id number] [address] [place] [address] [place] Comprehensive metabolic 2000 panelon 10-20-2024 Albumin [Mass/Vol] 4.6 g/dL Normal 3.9-4.9 [facility] Comment on above: Order Comment: Speci men Type: BLOOD SPECIMEN Ordering Facility: External Submitter Address: , , Performed By: #### 2 4323-8 #### [facility] CLIA [id number] [address] [place] [address] [place] ALP [Catalytic activity/Vol] 97 U/L Normal 34-123 [facility] Comment on above: Order Comment: Speci men Type: BLOOD SPECIMEN Ordering Facility: External Submitter Address: , , Performed By: #### 2 4323-8 #### [facility] CLIA [id number] [address] [place] [address] [place] ALT [Catalytic activity/Vol] 14 U/L Normal 7-38 [facility] Comment on above: Order Comment: Speci men Type: BLOOD SPECIMEN Ordering Facility: External Submitter Address: , , Performed By: #### 2 4323-8 #### [facility] CLIA [id number] [address] [place] [address] [place] Anion gap [Moles/Vol] 11 mmol/L Normal 8-15 [facility] Comment on above: Order Comment: Speci men Type: BLOOD SPECIMEN Ordering Facility: External Submitter Address: , , Performed By: #### 2 4323-8 #### [facility] CLIA [id number] [address] [place] [address] [place] AST [Catalytic activity/Vol] 18 U/L Normal 13-35 [facility] Comment on above: Order Comment: Speci men Type: BLOOD SPECIMEN Ordering Facility: External Submitter Address: , , Performed By: #### 2 4323-8 #### [facility] CLIA [id number] [address] [place] [address] [place] Bilirubin [Mass/Vol] 0.4 mg/dL Normal 0.2-1.3 [facility] Comment on above: Order Comment: Speci men Type: BLOOD SPECIMEN Ordering Facility: External Submitter Address: , , Performed By: #### 2 4323-8 #### [facility] [id number] [address] [place] [address] [place] Calcium [Mass/Vol] 9.8 mg/dL Normal 8.5-10.2 [facility] Comment on above: Order Comment: Speci men Type: BLOOD SPECIMEN Ordering Facility: External Submitter Address: , , Performed By: #### 2 4323-8 #### [facility] CLIA [id number] [address] [place] [address] [place] Chloride [Moles/Vol] 104 mmol/L Normal 98-107 [facility] Comment on above: Order Comment: Speci men Type: BLOOD SPECIMEN Ordering Facility: External Submitter Address: , , Performed By: #### 2 4323-8 #### [facility] CLIA [id number] [address] [place] [address] [place] CO2 [Moles/Vol] 25 mmol/L Normal 22-30 [facility] Comment on above: Order Comment: Speci men Type: BLOOD SPECIMEN Ordering Facility: External Submitter Address: , , Performed By: #### 2 4323-8 #### [facility] CLIA [id number] [address] [place] [address] [place] Creatinine [Mass/Vol] 0.62 mg/dL Normal 0.58-0.96 [facility] Comment on above: Order Comment: Speci men Type: BLOOD SPECIMEN Ordering Facility: External Submitter Address: , , Performed By: #### 2 4323-8 #### [facility] [id number] [address] [place] [address] [place] eGFRcr SerPlBld CKD-EPI 2020 109 mL/min/1.73m??? Normal >=60 [facility] Comment on above: Order Comment: Katinai jalen Type: BLOOD SPECIMEN Ordering Facility: External [...] GFR. Performed By: #### 2 4323-8 #### [facility] [id number] [address] [place] [address] [place] Glucose [Mass/Vol] 98 mg/dL Normal 74-99 [facility] Comment on above: Order Comment: Speci men Type: BLOOD SPECIMEN Ordering Facility: External Submitter Address: , , Result Comment: The [place] Diabetes Association (ADA) provides guidance for cutoff [...] Standards of Medical Care in Diabetes 2016, [place] Diabetes Association. Diabetes Care. 2016.39(Suppl 1). Performed By: #### 2 4323-8 #### [facility] CLIA [id number] [address] [place] [address] [place] Potassium [Moles/Vol] 4.0 mmol/L Normal 3.7-5.1 [facility] Comment on above: Order Comment: Lulu rao Type: BLOOD SPECIMEN Ordering Facility: External Submitter Address: , , Performed By: #### 2 4323-8 #### [facility] [id number] [address] [place] [address] [place] Protein [Mass/Vol] 7.1 g/dL Normal 6.3-8.0 [facility] Comment on above: Order Comment: Lulu rao Type: BLOOD SPECIMEN Ordering Facility: External Submitter Address: , , Performed By: #### 2 4323-8 #### [facility] CLIA [id number] [address] [place] [address] [place] Sodium [Moles/Vol] 140 mmol/L Normal 136-144 [facility] Comment on above: Order Comment: Lulu rao Type: BLOOD SPECIMEN Ordering Facility: External Submitter Address: , , Performed By: #### 2 4323-8 #### [facility] CLIA [id number] [address] [place] [address] [place] Urea nitrogen [Mass/Vol] 8 mg/dL Normal 7-21 [facility] Comment on above: Order Comment: Lulu rao Type: BLOOD SPECIMEN Ordering Facility: External Submitter Address: , , Performed By: #### 2 4323-8 #### [facility] CLIA [id number] [address] [place] [address] [place] Folate SerPl-mCncon 10-21-19 25 Folate [Mass/Vol] 15.0 ng/mL Normal >4.7 [facility] Comment on above: Order Comment: Lulu rao Type: BLOOD SPECIMEN Ordering Facility: External Submitter Address: , , Performed By: #### 2 284-8, 2132-9 #### [facility] CLIA [id number] [address] [place] [address] [place] HbA1c (Bld)on 10-20-2024 Average glucose Estimated from glycated hemoglobin (Bld) [Mass/Vol] 111 mg/dL Normal [facility] Comment on above: Order Comment: Lulu rao Type: BLOOD SPECIMEN Ordering Facility: External Submitter Address: , , Result Comment: eAG: (Estimated average glucose) is a calculated value from HgbA1c and is assisted sales representative of the average blood glucose level in the last 2-3 month period. Performed By: #### 5 5454-3 #### [facility] CLIA [id number] [address] [place] [address] [place] HbA1c (Bld) [Mass fraction] 5.5 % Normal 4.3-5.6 [facility] Comment on above: Order Comment: Lulu rao Type: BLOOD SPECIMEN Ordering Facility: External Submitter Address: , , Result Comment: [place] Diabetes Association guidelines indicate that patients with HgbA1c in the range 5.7-6.4% are at increased risk for development of diabetes, and intervention by lifestyle modification may be beneficial. HgbA1c greater or equal to 6.5% is considered diagnostic of diabetes. Performed By: #### 5 5454-3 #### [facility] CLIA [id number] [address] [place] [address] [place] Insulin SerPl-aCncon 025 Insulin Qn 3.8 uU/mL Normal 2.6-24.9 [facility] Comment on above: Order Comment: Speci men Type: BLOOD SPECIMEN Ordering Facility: External Submitter Address: , , Performed By: #### 2 0448-7 #### [facility] CLIA [id number] [address] [place] [address] [place] URINALYSIS, REFLEX MICROSCOP ICon 10-20-2024 Bilirubin Ql (U) Negative Normal Negative [facility] Comment on above: Order Comment: Speci men Type: URINE SPECIMEN Ordering Facility: External Submitter Address: , , Performed By: #### L [id number] #### [facility] CLIA [id number] [address] [place] [address] [place] Clarity (Unsp spec) Clear Normal Clear [facility] Comment on above: Order Comment: Speci men Type: URINE SPECIMEN Ordering Facility: External Submitter Address: , , Performed By: #### L [id number] #### [facility] CLIA [id number] [address] [place] [address] [place] [facility] Color (U) Yellow Normal Yellow [facility] Comment on above: Order Comment: Speci men Type: URINE SPECIMEN Ordering Facility: External Submitter Address: , , Performed By: #### L [id number] #### [facility] CLIA [id number] [address] [place], [place] [address] [place] Glucose Test strip (U) [Mass/Vol] Negative Normal Negative [facility] Comment on above: Order Comment: Speci men Type: URINE SPECIMEN Ordering Facility: External Submitter Address: , , Performed By: #### L [id number] #### [facility] CLIA [id number] [address] [place], [place] [address] [place] Hemoglobin Ql (U) Negative Normal Negative [facility] Comment on above: Order Comment: Speci men Type: URINE SPECIMEN Ordering Facility: External Submitter Address: , , Performed By: #### L [id number] #### [facility] CLIA [id number] [facility] [place] [address] [place] Ketones Ql (U) Negative Normal Negative [facility] Comment on above: Order Comment: Speci men Type: URINE SPECIMEN Ordering Facility: External Submitter Address: , , Performed By: #### L [id number] #### [facility] CLIA [id number] [address] [place] [address] [place] Leukocyte esterase Test strip Ql (U) Negative Normal Negative [facility] Comment on above: Order Comment: Speci men Type: URINE SPECIMEN Ordering Facility: External Submitter Address: , , Performed By: #### L [id number] #### [facility] CLIA [id number] [address] [place] [address] [place] Nitrite Ql (U) Negative Normal Negative [facility] Comment on above: Order Comment: Speci men Type: URINE SPECIMEN Ordering Facility: External Submitter Address: , , Performed By: #### L [id number] #### [facility] CLIA [id number] [address] [place] [address] [place] pH (U) 5.5 [pH] Normal 5.0-8.0 [facility] Comment on above: Order Comment: Speci men Type: URINE SPECIMEN Ordering Facility: External Submitter Address: , , Performed By: #### L [id number] #### [facility] CLIA [id number] [address] [place] [address] [place] Protein (U) [Mass/Vol] Negative Normal Negative [facility] Comment on above: Order Comment: Speci men Type: URINE SPECIMEN Ordering Facility: External Submitter Address: , , Performed By: #### L [id number] #### [facility] CLIA [id number] [address] [place], [place] [address] [place] Specific gravity (U) [Rel density] 1.019 Normal 1.005-1.030 [facility] Comment on above: Order Comment: Speci men Type: URINE SPECIMEN Ordering Facility: External Submitter Address: , , Performed By: #### L [id number] #### [facility] CLIA [id number] [address] [place], [place] [address] [place] Urobilinogen Ql (U) 0.2 EU/dL Normal 0.2-1.0 EU/dL [facility] Comment on above: Order Comment: Speci men Type: URINE SPECIMEN Ordering Facility: External Submitter Address: , , Performed By: #### L [id number] #### [facility] CLIA [id number] [address] [place], [place] [address] [place] Vit B12 [facility] 10-2 025 Cobalamin (Vitamin B12) [Mass/Vol] 694 pg/mL Normal 232-1245 [facility] Comment on above: Order Comment: Speci men Type: BLOOD SPECIMEN Ordering Facility: External Submitter Address: , , Performed By: #### 2 284-8, 2132-9 #### [facility] IA [id number] [address] [place], [place] [address] [place] Urgent Care Visit Reporton 0 10-10-2024 Urgent Care Visit Report [facility] [address], [address] [place] [address] OFFICE VISIT Date of Service: 10/10/24 MR#: [id number] Acct: [id number] Name: TERESA CASH Rep #: [id number] : 1975 Provider: LAMAR torres Age/Sex: 48/F [place] [facility] Status: Signed Intake Vital Signs 02/14/24 [...] mg PO Q3D 2 doses #2 tabs /3 03/0610/10/24 Rx ondansetron 4 mg disintegrating 4 mg [...] at home: Yes 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 Normal [facility] CT KIDNEY STONEon 07-19-2024 CT KIDNEY STONE [...] or hydronephrosis. 3. Prior appendectomy. No adenopathy. VKR/brittni Workstation ID: [id number] Dictated by: BENNETT HAYWOOD on FriJul 19, 2024 3:31:43 PM EDT Transcribed by: JACINDA FRANCIS on FriJul 19, 2024 3:36:50 PM EDT Finalized by: BENNETT HAYWOOD on FriJul 19, 2024 7:41:10 PM EDT [facility] Comment on above: Order Comment: Injur y/Trauma or Illness?:Illness/Other How long have you had these symptoms (acute/chronic)?:Acute Reason for exam?:concern for kidney stone right flank pain Type of Exam?:Initial Additional signs and symptoms?:na ED Prov Noteon 07-19-2024 ED Prov Note ED PROVIDER NOTE [facility] NAME: Teresa Cash AGE: 48 y.o. : 1975 VISIT DATE: 07/19/2024 CSN: [id number] PCP: Galilea Whitaker, MYLA Chief Complaint Patient presents with Flank Pain [...] Laterality: Left; KNEE SURGERY Right 03/25/2018 Dr. Comisar TONSILLECTOMY as an Family History Problem Relation [...] -- (!) 59 18 96 % 5' 8 77.1 kg (170 lb) Physical Exam Vitals and nursing note reviewed. Exam conducted with a metal stamper present. Constitutional: General: She is in acute [...] 31.0 - (more content not included)... Normal [facility] POC BASIC METABOLIC PANEL - Marely 07-19-2024 Chloride [Moles/Vol] 104 mmol/L Normal 98-108 [facility] Comment on above: Order Comment: [facility] has implemented the eGFR calculation approach that does not have a coefficient for race that conforms to the NKF-ASN Task Force Recommendations. CO2 [Moles/Vol] 29 mmol/L Normal 21-32 [facility] Comment on above: Order Comment: [facility] has implemented the eGFR calculation approach that does not have a coefficient for race that conforms to the NKF-ASN Task Force Recommendations. Creatinine [Mass/Vol] 0.61 mg/dL Normal 0.40-1.10 [facility] Comment on above: Order Comment: [facility] has implemented the eGFR calculation approach that does not have a coefficient for race that conforms to the NKF-ASN Task Force Recommendations. Glucose [Mass/Vol] 108 mg/dL High 65-99 [facility] Comment on above: Order Comment: [facility] has implemented the eGFR calculation approach that does not have a coefficient for race that conforms to the NKF-ASN Task Force Recommendations. POC GFR 109 mL/min/1.73 m2 Normal >=60 [facility] Comment on above: Order Comment: [facility] has implemented the eGFR calculation approach that does not have a coefficient for race that conforms to the NKF-ASN Task Force Recommendations. Result Comment: Ivet mated GFR was calculated using the 2020 CKD-EPI creatinine equation. POC IONIZED CALCIUM 5.0 mg/dL Normal 4.5-5.3 [facility] Comment on above: Order Comment: [facility] has implemented the eGFR calculation approach that does not have a coefficient for race that conforms to the NKF-ASN Task Force Recommendations. Potassium [Moles/Vol] 3.9 mmol/L Normal 3.5-5.1 [facility] Comment on above: Order Comment: [facility] has implemented the eGFR calculation approach that does not have a coefficient for race that conforms to the NKF-ASN Task Force Recommendations. Sodium [Moles/Vol] 141 mmol/L Normal 135-145 [facility] Comment on above: Order Comment: [facility] has implemented the eGFR calculation approach that does not have a coefficient for race that conforms to the NKF-ASN Task Force Recommendations. Urea nitrogen [Mass/Vol] 11 mg/dL Normal 8-25 [facility] Comment on above: Order Comment: [facility] has implemented the eGFR calculation approach that does not have a coefficient for race that conforms to the NKF-ASN Task Force Recommendations. POC CBC AND DIFFERENTIALon 0 - BASOPHILS ABSOLUTE COUNT 0.03 K/mcL Normal 0.00-0.30 [facility] Basophils/100 WBC (Bld) 0.4 % Normal [facility] Eosinophils (Bld) [#/Vol] 0.17 10*3/uL Normal 0.00-0.5 0 [facility] Eosinophils/100 WBC (Bld) 2.4 % Normal [facility] Erythrocyte distribution width (RBC) [Ratio] 12.0 % Normal 11.6-14.8 [facility] Hematocrit (Bld) [Volume fraction] 39.6 % Normal 36.0-46.0 [facility] Hemoglobin (Bld) [Mass/Vol] 13.2 g/dL Normal 12.0-16.0 [facility] IG ABSOLUTE 0.00 K/mcL Normal 0.00-0.30 [facility] IG PERCENT 0.00 % Normal [facility] Comment on above: Result Comment: The IG parameter is the percentage of metamyelocytes, myelocytes and promyelocytes. An immature granulocyte count (IG) of 1% or more suggests the possibility of infection, an IG count of 3% is very likely related to an infection. Lymphocytes (Bld) [#/Vol] 2.55 10*3/uL Normal 0.90-4.0 0 [facility] Lymphocytes/100 WBC (Bld) 36.1 % Normal [facility] MCH (RBC) [Entitic mass] 32.9 pg Normal 26.0-34.0 [facility] MCV (RBC) [Entitic vol] 98.8 fL Normal 80.0-100.0 [facility] MEAN CORPUSCULAR HEMOGLOBIN CONC 33.3 g/dL Normal 31.0-37.0 [facility] Monocytes (Bld) [#/Vol] 0.61 10*3/uL Normal 0.30-0.90 [facility] Monocytes/100 WBC (Bld) 8.6 % Normal [facility] NEUTROPHILS ABSOLUTE COUNT 3.70 K/mcL Normal 1.70-7.00 [facility] Neutrophils/100 WBC (Bld) 52.5 % Normal [facility] Platelet mean volume (Bld) [Entitic vol] 9.3 fL Low 9.4-12.4 [facility] Platelets (Bld) [#/Vol] 314 10*3/uL Normal 150-400 [facility] RBC (Bld) [#/Vol] 4.01 10*6/uL Normal 4.00-5.20 [facility] WBC (Bld) [#/Vol] 7.06 10*3/uL Normal 4.50-11.00 [facility] POC URINALYSIS DIPSTICK,AUTO - RALSon 07-19-2024 POC BILIRUBIN, URINE Negative Normal Negative [facility] POC BLOOD, URINE Trace-intact Abnormal Negative [facility] POC GLUCOSE, URINE Negative Normal Negative [facility] POC KETONES, URINE Negative Normal Negative [facility] POC LEUKOCYTE ESTERASE, URINE Negative Normal Negative [facility] POC NITRITE, URINE Negative Normal Negative [facility] POC PH, URINE 7.0 Normal 5.0-7.0 [facility] POC PROTEIN, URINE Negative Normal Negative [facility] POC SPECIFIC GRAVITY 1.015 Normal 1.005-1.025 [facility] POC UROBILINOGEN 0.2 mg/dL Normal < 2.0 [facility] OP NOTEon 07-02-2024 OP NOTE ATTENDING PHYSICIAN SAMEERA GONZALES MD PRIMARY CARE PHYSICIAN GALILEA WHITAKER, MYLA ADMITTING PHYSICIAN SAMEERA GONZALES MD PREOPERATIVE DIAGNOSIS [...] PACU without intraoperative complication. D 07/02/2024 11:18 [id number] T 07/02/2024 11:41 MCB/MODL AUTHENTICATED BY SAMEERA GONZALES, ON 07/02/2024 12:33:27 Normal [facility] POC , URINE - RALSo n 07-02-2024 Beta HCG ( test) Ql (U) Negative Normal Negative [facility] Comment on above: Order Comment: Negat hemalatha: Dilute urine specimens, as indicated by a low specific gravity (<1.010) may not contain representitive levels of hCG. If is still suspected, a serum test or repeat urine test using a first morning urine specimen should be considered. Performed By: #### 4 8123 #### LAB [address] [place] [address] Cassius Brown M.D. [id number] TISSUE EXAMon 07-02-2024 TISSUE EXAM Surgical Pathology Report Case: [id number] Authorizing Provider: Sameera Gonzales MD Collected: 07/02/2024 10:41 AM Ordering Location: [facility] Periop Received: 07/02/2024 12:44 PM Pathologist: Marko Pritchett IV, MD Specimen: Hand, Left, Left Hand mass A. Left Hand, mass, excision: Palmar fibromatosis. at 1135 EDT Mass left hand A. The specimen is received in formalin, designated hand, left-left hand mass, and consists of an irregular rubbery segment of yellow to white-barrera soft tissue measuring 1 x 0.7 x 0.5 cm. Cut surfaces are homogeneous yellow-barrera. The specimen is bisected and is entirely submitted in a single cassette. JK Gross examination performed at: [facility] - [address] [place] [address] Microscopic examination is performed. Normal [facility] Comment on above: Performed By: #### 4 7015 #### [address] [address] Cassius Brown M.D. [id number] CBC (INCLUDES DIFF/PLT)on ABSOLUTE BAND NEUTROPHILS Normal [facility] Comment on above: Performed By: #### 9 27, 09801, 6399, 36664, 98540 #### [facility] of [address], [address] [place] [address] Dot Compliance Coordinator: Otto Conley MD ABSOLUTE BASOPHILS Normal [facility] Comment on above: Performed By: #### 9 27, 00118, 6399, 55015, 55117 #### [facility] of [place] [address] Dot Compliance Coordinator: Otto Conley MD ABSOLUTE BLASTS Normal [facility] Comment on above: Performed By: #### 9 27, 11774, 6399, 81662, 90937 #### [facility] of [place] [address] Dot Compliance Coordinator: Otto Conley MD ABSOLUTE EOSINOPHILS [facility] Comment on above: Performed By: #### 9 27, 53992, 6399, 82106, 97821 #### [facility] of [place] [address] Dot Compliance Coordinator: Otto Conley MD ABSOLUTE LYMPHOCYTES [facility] Comment on above: Performed By: #### 9 27, 19300, 6399, 55784, 67737 #### [facility] of [place] [address] Dot Compliance Coordinator: Otto Conley MD ABSOLUTE METAMYELOCYTES Normal [facility] Comment on above: Performed By: #### 9 27, 30048, 6399, 81187, 94705 #### [facility] of [place] [address] Dot Compliance Coordinator: Otto Conley MD ABSOLUTE MONOCYTES Normal [facility] Comment on above: Performed By: #### 9 27, 80910, 6399, 12079, 82710 #### [facility] of [place] [address], [address] [place] [address] Dot Compliance Coordinator: Otto Conley MD ABSOLUTE MYELOCYTES Normal [facility] Comment on above: Performed By: #### 9 27, 67481, 6399, 25127, 51851 #### [facility] of [place] [address] [address] , [address] [place] [address] Dot Compliance Coordinator: Otto Conley MD ABSOLUTE NEUTROPHILS [facility] Comment on above: Performed By: #### 9 27, 35800, 6399, 50305, 45952 #### [facility] of [place] [address] [address] , [address] [place] [address] Dot Compliance Coordinator: Otto Conley MD ABSOLUTE NUCLEATED RBC Normal [facility] Comment on above: Performed By: #### 9 27, 79655, 6399, 76132, 75624 #### [facility] of [address] , [address] [place] [address] Dot Compliance Coordinator: Otto Conley MD ABSOLUTE PROMYELOCYTES Normal [facility] Comment on above: Performed By: #### 9 27, 25300, 6399, 54871, 99232 #### [facility] of [place] [address] [address] , [address] [place] [address] Dot Compliance Coordinator: Otto Conley MD BAND NEUTROPHILS Normal [facility] Comment on above: Performed By: #### 9 27, 54143, 6399, 50524, 29347 #### [facility] of [place] [address] [address] , [address] [place] [address] Dot Compliance Coordinator: Otto Conley MD BASOPHILS Normal [facility] Comment on above: Performed By: #### 9 27, 95357, 6399, 13883, 10222 #### [facility] [place] [address] [address] , [address] [place] [address] Dot Compliance Coordinator: Otto Conley MD BLASTS Normal [facility] Comment on above: Performed By: #### 9 27, 80049, 6399, 64481, 01031 #### [facility] of [place] [address], [address] [place] [address] Dot Compliance Coordinator: Otto Conley MD COMMENT(S) Normal [facility] Comment on above: Performed By: #### 9 27, 98983, 6399, 96917, 45235 #### [facility] of [facility] [address], [address] [place] [address] Dot Compliance Coordinator: Otto Conley MD [facility] Normal [facility] Comment on above: Performed By: #### 9 27, 91505, 6399, 84316, 42101 #### [facility] [address], [address] [place] [address] Dot Compliance Coordinator: Otto Conley MD [facility] Normal [facility] Comment on above: Performed By: #### 9 27, 93439, 6399, 38331, 78095 #### [facility] [address], [address] [place] [address] Dot Compliance Coordinator: Otto Conley MD [facility] Normal [facility] Comment on above: Performed By: #### 9 27, 20785, 6399, 66645, 89284 #### [facility] of [facility] [address], [address] [place] [address] Dot Compliance Coordinator: Otto Conley MD [facility] Normal [facility] Comment on above: Performed By: #### 9 27, 25906, 6399, 27179, 67769 #### [facility] of [facility] [address], [address] [place] [address] Dot Compliance Coordinator: Otto Conley MD [facility] Normal [facility] Comment on above: Performed By: #### 9 27, 36751, 6399, 06782, 61973 #### [facility] [address], [address] [place] [address] Dot Compliance Coordinator: Otto Conley MD [facility] Normal [facility] Comment on above: Performed By: #### 9 27, 96639, 6399, 03535, 42926 #### [facility] [address], [address] [place] [address] Dot Compliance Coordinator: Otto Conley MD MCV Normal [facility] Comment on above: Performed By: #### 9 27, 67209, 6399, 14520, 08966 #### [facility] of [place] [address], [address] [place] [address] Dot Compliance Coordinator: Otto Conley MD METAMYELOCYTES Normal [facility] Comment on above: Performed By: #### 9 27, 06989, 6399, 28921, 37697 #### [facility] of [place] [address] [address] , [address] [place] [address] Dot Compliance Coordinator: Otto Conley MD MONOCYTES Normal [facility] Comment on above: Performed By: #### 9 27, 29323, 6399, 59364, 13803 #### [facility] [place] [address] [address] [place] [address] Dot Compliance Coordinator: Otto Conley MD MPV Normal [facility] Comment on above: Performed By: #### 9 27, 36566, 6399, 20939, 71919 #### [facility] [place] [address] [address] , [address] [place] [address] Dot Compliance Coordinator: Otto Conley MD MYELOCYTES Normal [facility] Comment on above: Performed By: #### 9 27, 03813, 6399, 36126, 80866 #### [facility] [place] [address] [address] [place] [address] Dot Compliance Coordinator: Otto Conley MD NEUTROPHILS Normal [facility] Comment on above: Performed By: #### 9 27, 84309, 6399, 15634, 43077 #### [facility] [place] [address], [address] [place] [address] Dot Compliance Coordinator: Otto Conley MD NUCLEATED RBC Normal [facility] Comment on above: Performed By: #### 9 27, 99883, 6399, 95227, 25604 #### [facility] [place] [address] [address] , [address] [place] [address] Dot Compliance Coordinator: Otto Conley MD PLATELET COUNT Normal [facility] Comment on above: Performed By: #### 9 27, 19932, 6399, 66289, 26327 #### [facility] [place] [address], [address] [place] [address] Dot Compliance Coordinator: Otto Conley MD PROMYELOCYTES Normal [facility] Comment on above: Performed By: #### 9 27, 77536, 6399, 12832, 48350 #### [facility] [place] [address], [address] [place] [address] Dot Compliance Coordinator: Otto Conley MD RDW Normal [facility] Comment on above: Performed By: #### 9 27, 64861, 6399, 71430, 00731 #### [facility] [place] [address] [address] , [address] [place] [address] Dot Compliance Coordinator: Otto Conley MD REACTIVE LYMPHOCYTES [facility] Comment on above: Performed By: #### 9 27, 62235, 6399, 49633, 51979 #### [facility] [place] [address] [address] , [address] [place] [address] Dot Compliance Coordinator: Otto Conley MD RED BLOOD CELL COUNT Normal [facility] Comment on above: Performed By: #### 9 27, 04330, 6399, 05222, 78735 #### [facility] [place] [address], [address] [place] [address] Dot Compliance Coordinator: Otto Conley MD WHITE BLOOD CELL COUNT Normal [facility] Comment on above: Performed By: #### 9 27, 79884, 6399, 08397, 54324 #### [facility] of [place] [address], [address] [place] [address] Dot Compliance Coordinator: Otto Conley MD COMPREHENSIVE METABOLIC PANE L W/ANION GAPon 05-22-2024 Albumin [Mass/Vol] 4.7 g/dL Normal 3.6-5.1 [facility] Comment on above: Performed By: #### 9 27, 00348, 6399, 17721, 94931 #### [facility] of [place] [address], [address] [place] [address] Dot Compliance Coordinator: Otto Conley MD ALP [Catalytic activity/Vol] 80 U/L Normal 37-153 [facility] Comment on above: Performed By: #### 9 , 06286, 6399, 57060, 70507 #### [facility] of [address], [address] [place] [address] Dot Compliance Coordinator: Otto Conley MD ALT [Catalytic activity/Vol] 13 U/L Normal 6-29 [facility] Comment on above: Performed By: #### 9 , 01043, 6399, 92459, 90568 #### [facility] of [address], [address] [place] [address] Dot Compliance Coordinator: Otto Conley MD AST [Catalytic activity/Vol] 16 U/L Normal 10-35 [facility] Comment on above: Performed By: #### 9 , 67973, 6399, 66022, 35921 #### [facility] of [address], [address] [place] [address] Dot Compliance Coordinator: Otto Conley MD Bilirubin [Mass/Vol] 0.6 mg/dL Normal 0.2-1.2 [facility] Comment on above: Performed By: #### 9 , 18630, 6399, 22771, 11900 #### [facility] of [address], [address] [place] [address] Dot Compliance Coordinator: Otto Conley MD Calcium [Mass/Vol] 9.3 mg/dL Normal 8.6-10.4 [facility] Comment on above: Performed By: #### 9 , 47060, 6399, 63773, 90385 #### [facility] of [address], [address] [place] [address] Dot Compliance Coordinator: Otto Conley MD Chloride [Moles/Vol] 100 mmol/L Normal 98-110 [facility] Comment on above: Performed By: #### 9 , 00261, 6399, 01265, 59084 #### [facility] of [address], [address] [place] [address] Dot Compliance Coordinator: Otto Conley MD CO2 [Moles/Vol] 28 mmol/L Normal 20-32 [facility] Comment on above: Performed By: #### 9 27, 51801, 6399, 83660, 29098 #### [facility] [place] [address] Dot Compliance Coordinator: Otto Conley MD Creatinine [Mass/Vol] 0.56 mg/dL Normal 0.50-1.[address] [facility] Comment on above: Performed By: #### 9 27, 74242, 6399, 09739, 68705 #### [facility] [place] [address] Dot Compliance Coordinator: Otto Conley MD ELECTROLYTE BALANCE 8 mmol/L (calc) Normal 7-17 [facility] Comment on above: Performed By: #### 9 , 14175, 63, 01274, 92626 #### [facility] [place] [address] Dot Compliance Coordinator: Otto Conley MD GFR/1.73 sq M.predicted among non-blacks MDRD (S/P/Bld) [Vol rate/Area] 111 mL/min/{1.73_m2} Normal > OR = 60 [facility] Comment on above: Performed By: #### 9 27, 81986, 63, 79981, 63458 #### [facility] [place] [address] Dot Compliance Coordinator: Otto Conley MD Glucose [Mass/Vol] 98 mg/dL Normal 65-99 [facility] Comment on above: Result Comment: Fasting reference interval Performed By: #### 9 27, 54254, 6399, 67761, 16866 #### [facility] [place] [address] Dot Compliance Coordinator: Otto Conley MD Potassium [Moles/Vol] 4.1 mmol/L Normal 3.5-5.[address] [facility] Comment on above: Performed By: #### 9 , 01836, 6399, 13757, 65307 #### [facility] of [address], [address] [place] [address] Dot Compliance Coordinator: Otto Conley MD Protein [Mass/Vol] 6.9 g/dL Normal 6.1-8.1 [facility] Comment on above: Performed By: #### 9 27, 76862, 6399, 45257, 78014 #### [facility] of [address], [address] [place] [address] Dot Compliance Coordinator: Otto Conley MD Sodium [Moles/Vol] 136 mmol/L Normal 135-146 [facility] Comment on above: Performed By: #### 9 27, 48091, 6399, 15584, 69071 #### [facility] of [place] [address] Dot Compliance Coordinator: Otto Conley MD Urea nitrogen [Mass/Vol] 12 mg/dL Normal 7-25 [facility] Comment on above: Performed By: #### 9 27, 13022, 6399, 53915, 95776 #### [facility] of [place] [address] Dot Compliance Coordinator: Otto Conley MD LIPID PANEL WITH REFLEX TO D STEPHCT LDLon 05-22-2024 Cholesterol [Mass/Vol] 208 mg/dL High <200 [facility] Comment on above: Order Comment: FASTI NG:YES FASTING: YES Performed By: #### 9 27, 57745, 6399, 14907, 34614 #### [facility] of [address], [address] [place] [address] Dot Compliance Coordinator: Otto Conley MD Cholesterol in HDL [Mass/Vol] 94 mg/dL Normal > OR = 50 [facility] Comment on above: Order Comment: FASTI NG:YES FASTING: YES Performed By: #### 9 27, 05829, 6399, 88711, 57924 #### [facility] of [address], [address] [place] [address] Dot Compliance Coordinator: Otto Conley MD Cholesterol in LDL [Mass/Vol] [...] equation in the estimation of LDL-C. Felipe SS et al. DUNIA. 2013;310(78): 4008-8020 (http://education.[employer]/faq/MCO703) Performed By: #### 9 27, 23342, 6399, 72058, 41885 #### [facility] [address], [address] [place] [address] Dot Compliance Coordinator: Otto Conley MD Cholesterol.total/Cholest conchita in HDL [Mass ratio] 2.2 {ratio} Normal <5.0 [facility] Comment on above: Order Comment: FASTI NG:YES FASTING: YES Performed By: #### 9 27, 99970, 6399, 70517, 69418 #### [facility] [address], [address] [place] [address] Dot Compliance Coordinator: Otto Conley MD NON HDL CHOLESTEROL 114 mg/dL (calc) Normal <130 [facility] Comment on above: Order Comment: FASTI NG:YES FASTING: YES Result Comment: For patients with diabetes plus 1 major ASCVD risk factor, treating to a non-HDL-C goal of <100 mg/dL (LDL-C of <70 mg/dL) is considered a therapeutic option. Performed By: #### 9 27, 24692, 6399, 97810, 52776 #### [facility] [address], [address] [place] [address] Dot Compliance Coordinator: Otto Conley MD Triglyceride [Mass/Vol] 79 mg/dL Normal <150 [facility] Comment on above: Order Comment: FASTI NG:YES FASTING: YES Performed By: #### 9 27, 83331, 6399, 75690, 36707 #### [facility] [address], [address] [place] [address] Dot Compliance Coordinator: Otto Conley MD VITAMIN B12on 05-22-2024 Cobalamin (Vitamin B12) [Mass/Vol] 838 pg/mL Normal 200-1100 [facility] Comment on above: Performed By: #### 9 27, 48660, 6399, 85293, 27526 #### [facility] [address], [address] [place] [address] Dot Compliance Coordinator: Otto Conley MD VITAMIN D,25-OH,TOTAL,IAon 0 05-22-2024 [...] D, (D2,D3), LC/MS/MS is recommended: order code 57436 (patients >2yrs). See Note 1 Note 1 For additional information, please refer to http://education.[employer]/faq/QUW285 (This link is being provided for informational/ educational purposes only.) Performed By: #### 9 27, 07242, 6399, 73761, 87009 #### [facility] [address], [address] [place] [address] Dot Compliance Coordinator: Otto Conley MD Urinalysis macro (dipstick) panel (U)on 05-21-2024 Bilirubin Ql (U) Negative Negative [facility] Glucose Ql (U) Negative Normal, Negative mg/dL [facility] Hemoglobin Ql (U) Negative Negative [facility] Interpretation and review of laboratory results Normal [facility] Ketones Ql (U) Negative Negative mg/dL [facility] Leukocyte esterase Test strip Ql (U) Negative Negative [facility] Nitrite Ql (U) Negative Negative [facility] pH (U) 6.5 [pH] 5.0 - 7.0 [facility] Protein Ql (U) Negative Negative mg/dL [facility] Specific gravity (U) [Rel density] 1.02 1.005 - 1.025 [facility] Urobilinogen Qn (U) <2.0 <2.0, 0. 2, Normal, Negative, 1.0, 2.0, <1.0 mg/dL [facility] Magnetic resonance imaging r eportOrdered By: Jaswant Gallardo on 05-15-2024 Study report [facility] Imaging Services [address] [place] [id number] Upper Ext/No Jt/ wo MR#: [id number] Acct: [id number] Name: TERESA CASH Rep #: [id number] : 1975 F 48 From: Pet kieran Gallardo DO PCP: LAMAR Scales Status: REG CLI Study:Upper Ext/No Jt/ wo Date of Exam: 05/12/24 Exam# [id number] Ordering Dr: VANIA GUNTER EXAM: Routine noncontrast MRI of the left hand. CLINICAL HISTORY: Pain at patton aspect of 4th metacarpal. COMPARISON: None. TECHNIQUE: Multi-planar and multi-sequence noncontrast MR imaging of the left hand. FINDINGS: Normal bone marrow signal. Tendons and soft tissue are unremarkable. Joints appear normal. No ganglion cyst is appreciated. MRI/Upper Ext/No Jt/ wo IMPRESSION: Normal exam. Reading Location: [facility] CC: VANIA GUNTER; LAMAR Whitaker ~ Grinding Room Inspector: Signed [facility] Upper Ext/No Jt/ woon 2024 Upper Ext/No Jt/ wo [facility] Imaging Services [address] [place] [address] Upper Ext/No Jt/ wo MR#: [id number] Acct: [id number] Name: TERESA CASHT Rep #: [id number] : 1975 F 48 From: Jaswant Gallardo DO PCP: LAMAR Scales Status: REG CLI Study: Upper Ext/No Jt/ wo Date of Exam: 05/12/24 Exam# [id number] Ordering Dr: VANIA GUNTER EXAM: Routine noncontrast MRI of the left hand. CLINICAL HISTORY: Pain at patton aspect of 4th metacarpal. COMPARISON: None. TECHNIQUE: Multi-planar and multi-sequence noncontrast MR imaging of the left hand. FINDINGS: Normal bone marrow signal. Tendons and soft tissue are unremarkable. Joints appear normal. No ganglion cyst is appreciated. MRI/Upper Ext/No Jt/ wo IMPRESSION: Normal exam. Reading [facility] CC: VANIA GUNTER; LAMAR Whitaker Grinding Room Inspector: Signed Normal [facility] CULTURE, URINE, ROUTINEon Bacteria identified Cx Nom (U) SEE NOTE Normal [facility] Comment on above: Result Comment: CULTURE, URINE, ROUTINE Micro Number: [id number] Test Status: Final Specimen Source: Urine Specimen Quality: Adequate Result: No Growth Performed By: #### 9 27, 76082, 6399, 91970, 58333 #### [facility] [address], [address] [place] [address] Dot Compliance Coordinator: Otto Conley MD URINALYSIS, COMPLETEon 04-07 Appearance (U) CLEAR Normal CLEAR [facility] Comment on above: Performed By: #### 9 27, 93043, 6399, 96611, 86599 #### [facility] [place] [address] [place] [address] Dot Compliance Coordinator: Otto Conley MD BACTERIA NONE SEEN Normal NONE SEEN [facility] Comment on above: Performed By: #### 9 27, 47983, 6399, 59642, 49208 #### [facility] [place] [address] Dot Compliance Coordinator: Otto Conley MD Bilirubin Ql (U) Negative Normal NEGATIVE [facility] Comment on above: Performed By: #### 9 27, 96302, 6399, 13384, 90719 #### [facility] of [place] [address] Dot Compliance Coordinator: Otto Conley MD Color (U) YELLOW Normal YELLOW [facility] Comment on above: Performed By: #### 9 27, 38579, 6399, 19555, 61264 #### [facility] [place] [address] Dot Compliance Coordinator: Otto Conley MD Glucose Ql (U) Negative Normal NEGATIVE [facility] Comment on above: Performed By: #### 9 27, 59430, 6399, 39708, 03286 #### [facility] of [place] [address] Dot Compliance Coordinator: Otto Conley MD HYALINE CAST NONE SEEN Normal NONE SEEN [facility] Comment on above: Performed By: #### 9 27, 63712, 6399, 20085, 13610 #### [facility] of [place] [address] Dot Compliance Coordinator: Otto Conley MD Ketones Ql (U) Negative Normal NEGATIVE [facility] Comment on above: Performed By: #### 9 27, 31340, 6399, 43619, 04306 #### [facility] of [place] [address] Dot Compliance Coordinator: Otto Conley MD Leukocyte esterase Test strip Ql (U) Negative Normal NEGATIVE [facility] Comment on above: Performed By: #### 9 27, 87492, 6399, 21845, 79649 #### [facility] [place] [address] Dot Compliance Coordinator: Otto Conley MD Nitrite Ql (U) Negative Normal NEGATIVE [facility] Comment on above: Performed By: #### 9 27, 32270, 6399, 96960, 19335 #### [facility] [place] [address] Dot Compliance Coordinator: Otto Conley MD NOTE Normal [facility] Comment on above: Result Comment: This urine was analyzed for the presence of WBC, RBC, bacteria, casts, and other formed elements. Only those elements seen were reported. Performed By: #### 9 27, 10818, 6399, 93740, 27079 #### [facility] [place] [address] Dot Compliance Coordinator: Otto Conley MD OCCULT BLOOD Negative Normal NEGATIVE [facility] Comment on above: Performed By: #### 9 27, 44564, 6399, 27971, 88928 #### [facility] [place] [address] Dot Compliance Coordinator: Otto Conley MD pH (U) 6.5 [pH] Normal 5.0-8.0 [facility] Comment on above: Performed By: #### 9 27, 94057, 6399, 87551, 52275 #### [facility] [place] [address] Dot Compliance Coordinator: Otto Conley MD Protein Ql (U) Negative Normal NEGATIVE [facility] Comment on above: Performed By: #### 9 27, 51607, 6399, 72288, 36809 #### [facility] [place] [address] Dot Compliance Coordinator: Otto Conley MD RBC NONE SEEN Normal < OR = 2 [facility] Comment on above: Performed By: #### 9 27, 13706, 6399, 59654, 86210 #### [facility] [place] [address] Dot Compliance Coordinator: Otto Conley MD Specific gravity (U) [Rel density] 1.007 Normal 1.001-1.035 [facility] Comment on above: Performed By: #### 9 27, 60785, 6399, 02926, 65138 #### [facility] [place] [address] Dot Compliance Coordinator: Otto Conley MD SQUAMOUS EPITHELIAL CELLS NONE SEEN Normal < OR = 5 [facility] Comment on above: Performed By: #### 9 27, 82802, 6399, 82305, 84056 #### [facility] of [address], [address] [place] [address] Dot Compliance Coordinator: Otto Conley MD WBC NONE SEEN Normal < OR = 5 [facility] Comment on above: Performed By: #### 9 27, 35279, 6399, 71486, 22975 #### [facility] of [address], [address] [place] [address] Dot Compliance Coordinator: Otto Conley MD COMPREHENSIVE METABOLIC PANE L W/ANION GAPon 04-06-2024 Albumin [Mass/Vol] 4.7 g/dL Normal 3.6-5.1 [facility] Comment on above: Performed By: #### 9 27, 95319, 6399, 81309, 52907 #### [facility] of [address], [address] [place] [address] Dot Compliance Coordinator: Otto Conley MD ALP [Catalytic activity/Vol] 76 U/L Normal 37-153 [facility] Comment on above: Performed By: #### 9 27, 80041, 6399, 82224, 46900 #### [facility] of [address], [address] [place] [address] Dot Compliance Coordinator: Otto Conley MD ALT [Catalytic activity/Vol] 14 U/L Normal 6-29 [facility] Comment on above: Performed By: #### 9 27, 10664, 6399, 83842, 73474 #### [facility] of [address], [address] [place] [address] Dot Compliance Coordinator: Otto Conley MD AST [Catalytic activity/Vol] 16 U/L Normal 10-35 [facility] Comment on above: Performed By: #### 9 27, 00257, 6399, 80349, 86745 #### [facility] [place] [address] Dot Compliance Coordinator: Otto Conley MD Bilirubin [Mass/Vol] 0.3 mg/dL Normal 0.2-1.2 [facility] Comment on above: Performed By: #### 9 27, 82264, 6399, 71976, 40067 #### [facility] [place] [address] Dot Compliance Coordinator: Otto Conley MD Calcium [Mass/Vol] 9.6 mg/dL Normal 8.6-10.4 [facility] Comment on above: Performed By: #### 9 , 59141, 6399, 32069, 55478 #### [facility] [place] [address] Dot Compliance Coordinator: Otto Conley MD Chloride [Moles/Vol] 102 mmol/L Normal 98-110 [facility] Comment on above: Performed By: #### 9 , 70028, 6399, 25729, 39517 #### [facility] [place] [address] Dot Compliance Coordinator: Otto Conley MD CO2 [Moles/Vol] 29 mmol/L Normal 20-32 [facility] Comment on above: Performed By: #### 9 , 71099, 63, 79774, 42235 #### [facility] [place] [address] Dot Compliance Coordinator: Otto Conley MD Creatinine [Mass/Vol] 0.53 mg/dL Normal 0.50-1.[address] [facility] [address] [facility] Comment on above: Performed By: #### 9 , 32815, 63, 53643, 80494 #### [facility] of [place] [address] Dot Compliance Coordinator: Otto Conley MD ELECTROLYTE BALANCE 9 mmol/L (calc) Normal 7-17 [facility] Comment on above: Performed By: #### 9 , 61758, 6399, 79503, 90538 #### [facility] [place] [address] Dot Compliance Coordinator: Otto Conley MD GFR/1.73 sq M.predicted among non-blacks MDRD (S/P/Bld) [Vol rate/Area] 113 mL/min/{1.73_m2} Normal > OR = 60 [facility] Comment on above: Performed By: #### 9 27, 13418, 6399, 81114, 56053 #### [facility] of [address], [address] [place] [address] Dot Compliance Coordinator: Otto Conley MD Glucose [Mass/Vol] 98 mg/dL Normal 65-99 [facility] Comment on above: Result Comment: Fasting reference interval Performed By: #### 9 27, 26760, 6399, 83480, 27300 #### [facility] of [address], [address] [place] [address] Dot Compliance Coordinator: Otto Conley MD Potassium [Moles/Vol] 3.9 mmol/L Normal 3.5-5.[address] [facility] Comment on above: Performed By: #### 9 27, 59790, 6399, 38231, 97451 #### [facility] of [address], [address] [place] [address] Dot Compliance Coordinator: Otto Conley MD Protein [Mass/Vol] 6.7 g/dL Normal 6.1-8.1 [facility] Comment on above: Performed By: #### 9 27, 81450, 6399, 33594, 03985 #### [facility] [place] [address] Dot Compliance Coordinator: Otto Conley MD Sodium [Moles/Vol] 140 mmol/L Normal 135-146 [facility] Comment on above: Performed By: #### 9 27, 54091, 6399, 26470, 71927 #### [facility] [place] [address] Dot Compliance Coordinator: Otto Conley MD Urea nitrogen [Mass/Vol] 10 mg/dL Normal 7-25 [facility] Comment on above: Performed By: #### 9 , 81093, 6399, 29308, 23997 #### [facility] [place] [address] Dot Compliance Coordinator: Otto Conley MD HEMOGLOBIN A1con 04-06-2024 HEMOGLOBIN A1c 5.7 [...] diabetes for children. Performed By: #### 9 27, 08344, 6799, 77292, 80228 #### [facility] [address], [address] [place] [address] Dot Compliance Coordinator: Otto Conley MD XR HAND LEFT 3+ [...] FriApr 08, 2024 10:33:33 AM EST Normal [facility] Comment on above: Order Comment: [...] CNOV Office Visit (SPNMED ) TERESA CASH ([id number]) 1975 F Date Time Provider Department 04/01/24 10:20 AM YUNG FRANCIS SPNMED During your visit today, we recorded the following information about you: Pulse Blood pressure Weight Height 68/minute 144/88 76.8 kg 1.727 m Yung Francis PA-C 04/01/2024 10:59 AM Signed Yung Francis [facility] [address] [place] [address] 04/01/2024 ASSESSMENT AND PLAN: Assessment : Encounter [...] itself. She had x-rays done outside of [facility] at in February but the films are [...] supervised PT next and she could consider animal care service worker or osteopathic neuromuscular treatment in the future [...] today with this patient visit. This includes cksv-jf-awik time, review of chart records regarding conservative care history, spine-pertinent imaging, and communication/care coordination with referring provider, problem-specific history-taking and counseling/education regarding treatment options. cc: SELF Phone: N/A Fax: Results of consultation to be transmitted via electronic medical record for those providers who practice within [facility] or with access to [employer] via MD Connect, or via letter. ##################### [...] Has a lot of tightness. HPI: See Discussiuon above History of bowel or bladder dysfunction (not IBS or constipation): No History of previous spin (more content not included)... Normal [facility] CT CERVICAL SPINE WITHOUT CO NTRASTon 02-21-2024 [...] right neural foraminal stenosis at this level. Tdwz-ax-vyhidoym loss of disc height at C4-5 with [...] ID: [id number] Dictated by: MANOLO BRUMFIELD on [facility] Feb 21, 2024 11:24:59 AM EST Transcribed by: MANOLO BRUMFIELD on [facility] Feb 21, 2024 11:24:59 AM EST Finalized by: MANOLO BRUMFIELD on [facility] Feb 21, 2024 11:24:59 AM EST [facility] Comment on above: Order Comment: Injur y/Trauma [...] ID: [id number] Dictated by: MANOLO BRUMFIELD on [facility] Feb 21, 2024 11:21:37 AM EST Transcribed by: MANOLO BRUMFIELD on [facility] Feb 21, 2024 11:21:37 AM EST Finalized by: MANOLO BRUMFIELD on [facility] Feb 21, 2024 11:21:37 AM EST [facility] Comment on above: Order Comment: Injur y/Trauma or Illness?:Illness/Other How long have you had these symptoms (acute/chronic)?:Acute Reason for exam?:headache since Friday Type of Exam?:Initial Additional signs and symptoms?:n ED Prov Noteon 02-21-2024 ED Prov Note ED PROVIDER NOTE [facility] EMERGENCY DEPARTMENT NAME: Teresa Cash AGE: 48 y.o. : 1975 VISIT DATE: 02/21/2024 CSN: [id number] PCP: Galilea Whitaker, COIL TAPER Chief Complaint Patient presents with Headache Chief [...] focal motor weakness. Or any abdominal pain. [facility] ED Past Medical History: Diagnosis Date Anemia [...] min Stress: No Stress Concern Present (11/19/2022) [employer] - Occupational Stress Questionnaire [...] Amoxicillin Rash Black (more content not included)... Normal [facility] POC BASIC METABOLIC PANEL - Marely 02-21-2024 Chloride [Moles/Vol] 106 mmol/L Normal 98-108 [facility] Comment on above: Order Comment: [facility] has implemented the eGFR calculation approach that does not have a coefficient for race that conforms to the NKF-ASN Task Force Recommendations. CO2 [Moles/Vol] 32 mmol/L Normal 21-32 [facility] Comment on above: Order Comment: [facility] has implemented the eGFR calculation approach that does not have a coefficient for race that conforms to the NKF-ASN Task Force Recommendations. Creatinine [Mass/Vol] 0.65 mg/dL Normal 0.40-1.10 [facility] Comment on above: Order Comment: [facility] has implemented the eGFR calculation approach that does not have a coefficient for race that conforms to the NKF-ASN Task Force Recommendations. Glucose [Mass/Vol] 89 mg/dL Normal 65-99 [facility] Comment on above: Order Comment: [facility] has implemented the eGFR calculation approach that does not have a coefficient for race that conforms to the NKF-ASN Task Force Recommendations. POC GFR 107 mL/min/1.73 m2 Normal >=60 [facility] Comment on above: Order Comment: [facility] has implemented the eGFR calculation approach that does not have a coefficient for race that conforms to the NKF-ASN Task Force Recommendations. Result Comment: Ivet mated GFR was calculated using the 2020 CKD-EPI creatinine equation. POC IONIZED CALCIUM 5.4 mg/dL High 4.5-5.3 [facility] Comment on above: Order Comment: [facility] has implemented the eGFR calculation approach that does not have a coefficient for race that conforms to the NKF-ASN Task Force Recommendations. Potassium [Moles/Vol] 3.3 mmol/L Low 3.5-5.1 [facility] Comment on above: Order Comment: [facility] has implemented the eGFR calculation approach that does not have a coefficient for race that conforms to the NKF-ASN Task Force Recommendations. Sodium [Moles/Vol] 145 mmol/L Normal 135-145 [facility] Comment on above: Order Comment: [facility] has implemented the eGFR calculation approach that does not have a coefficient for race that conforms to the NKF-ASN Task Force Recommendations. Urea nitrogen [Mass/Vol] 6 mg/dL Low 8-25 [facility] Comment on above: Order Comment: [facility] has implemented the eGFR calculation approach that does not have a coefficient for race that conforms to the NKF-ASN Task Force Recommendations. POC CBC AND DIFFERENTIALon 0 02-21-2024 BASOPHILS ABSOLUTE COUNT 0.02 K/mcL Normal 0.00-0.30 [facility] Basophils/100 WBC (Bld) 0.3 % Normal [facility] Eosinophils (Bld) [#/Vol] 0.13 10*3/uL Normal 0.00-0.5 0 [facility] Eosinophils/100 WBC (Bld) 2.1 % Normal [facility] Erythrocyte distribution width (RBC) [Ratio] 11.5 % Low 11.6-14.8 [facility] Hematocrit (Bld) [Volume fraction] 37.7 % Normal 36.0-46.0 [facility] Hemoglobin (Bld) [Mass/Vol] 12.6 g/dL Normal 12.0-16.0 [facility] IG ABSOLUTE 0.00 K/mcL Normal 0.00-0.30 [facility] IG PERCENT 0.00 % Normal [facility] Comment on above: Result Comment: The IG parameter is the percentage of metamyelocytes, myelocytes and promyelocytes. An immature granulocyte count (IG) of 1% or more suggests the possibility of infection, an IG count of 3% is very likely related to an infection. Lymphocytes (Bld) [#/Vol] 1.79 10*3/uL Normal 0.90-4.0 0 [facility] Lymphocytes/100 WBC (Bld) 28.7 % Normal [facility] MCH (RBC) [Entitic mass] 32.2 pg Normal 26.0-34.0 [facility] MCV (RBC) [Entitic vol] 96.4 fL Normal 80.0-100.0 [facility] MEAN CORPUSCULAR HEMOGLOBIN CONC 33.4 g/dL Normal 31.0-37.0 [facility] Monocytes (Bld) [#/Vol] 0.67 10*3/uL Normal 0.30-0.90 [facility] Monocytes/100 WBC (Bld) 10.8 % Normal [facility] NEUTROPHILS ABSOLUTE COUNT 3.62 K/mcL Normal 1.70-7.00 [facility] Neutrophils/100 WBC (Bld) 58.1 % Normal [facility] Platelet mean volume (Bld) [Entitic vol] 9.5 fL Normal 9.4-12.4 [facility] Platelets (Bld) [#/Vol] 341 10*3/uL Normal 150-400 [facility] RBC (Bld) [#/Vol] 3.91 10*6/uL Low 4.00-5.20 [facility] WBC (Bld) [#/Vol] 6.23 10*3/uL Normal 4.50-11.00 [facility] ALBUMIN, RANDOM URINE W/CREA TININEon 02-19-2024 ALBUMIN, URINE 0.5 mg/dL Normal See Note: [facility] Comment on above: Order Comment: FASTI NG:NO FASTING: NO Result Comment: Refe rence Range: Reference Range Not established Performed By: #### 6 517 #### [facility] [address], [address] [place] [phone] Dot Compliance Coordinator: Otto Conley MD ALBUMIN/CREATININE RATIO, RANDOM URINE [...] By: #### 6 517 #### [facility] [address], [address] [place] [phone] Dot Compliance Coordinator: Otto Conley MD Creatinine (U) [Mass/Vol] 44 mg/dL Normal 20-275 [facility] Comment on above: Order Comment: FASTI NG:NO FASTING: NO Performed By: #### 6 517 #### [facility] [place] [address] Dot Compliance Coordinator: Otto Conley MD RENAL FUNCTION PANELon 02-18 Albumin [Mass/Vol] 4.5 g/dL Normal 3.6-5.1 [facility] Comment on above: Order Comment: FASTI NG:NOFASTING: NO Performed By: #### 9 27, 87574, 6399, 02378, 44748 #### [facility] [place] [address] Dot Compliance Coordinator: Otto Conley MD BUN/CREATININE RATIO SEE NOTE: Normal 6-22 [facility] Comment on above: Order Comment: FASTI NG:NOFASTING: NO Result Comment: Not Reported: BUN and Creatinine are within reference range. Performed By: #### 9 27, 31565, 6399, 74729, 60141 #### [facility] [place] [address] Dot Compliance Coordinator: Otto Conley MD Calcium [Mass/Vol] 9.7 mg/dL Normal 8.6-10.4 [facility] Comment on above: Order Comment: FASTI NG:NOFASTING: NO Performed By: #### 9 27, 96592, 6399, 18893, 81867 #### [facility] [address], [address] [place] [address] Dot Compliance Coordinator: Otto Conley MD Chloride [Moles/Vol] 101 mmol/L Normal 98-110 [facility] Comment on above: Order Comment: FASTI NG:NOFASTING: NO Performed By: #### 9 27, 31026, 6399, 06559, 58724 #### [facility] [address], [address] [place] [address] Dot Compliance Coordinator: Otto Conlye MD CO2 [Moles/Vol] 32 mmol/L Normal 20-32 [facility] Comment on above: Order Comment: FASTI NG:NOFASTING: NO Performed By: #### 9 27, 13996, 6399, 57489, 00451 #### [facility] [place] [address] Dot Compliance Coordinator: Otto Conley MD Creatinine [Mass/Vol] 0.86 mg/dL Normal 0.50-1.[address] [facility] [address] [facility] Comment on above: Order Comment: FASTI NG:NOFASTING: NO Performed By: #### 9 27, 55420, 6399, 07491, 40303 #### [facility] [place] [address] Dot Compliance Coordinator: Otto Conley MD GFR/1.73 sq M.predicted among non-blacks MDRD (S/P/Bld) [Vol rate/Area] 82 mL/min/{1.73_m2} Normal > OR = [facility] Comment on above: Order Comment: FASTI NG:NOFASTING: NO Performed By: #### 9 27, 84593, 6399, 14832, 36626 #### [facility] [place] [address] Dot Compliance Coordinator: Otto Conley MD Glucose [Mass/Vol] 94 mg/dL Normal 65-139 [facility] Comment on above: Order Comment: FASTI NG:NOFASTING: NO Result Comment: Non-fasting reference interval Performed By: #### 9 27, 64090, 6399, 13270, 50726 #### [facility] [place] [address] Dot Compliance Coordinator: Otto Conley MD Phosphate [Mass/Vol] 4.1 mg/dL Normal 2.5-4.5 [facility] Comment on above: Order Comment: FASTI NG:NOFASTING: NO Performed By: #### 9 27, 43434, 6399, 36666, 73085 #### [facility] [place] [address] Dot Compliance Coordinator: Otto Conley MD Potassium [Moles/Vol] 3.7 mmol/L Normal 3.5-5.[address] [facility] Comment on above: Order Comment: FASTI NG:NOFASTING: NO Performed By: #### 9 27, 24695, 6399, 40045, 03214 #### [facility] [address], [address] [place] [address] Dot Compliance Coordinator: Otto Conley MD Sodium [Moles/Vol] 144 mmol/L Normal 135-146 [facility] Comment on above: Order Comment: FASTI NG:NOFASTING: NO Performed By: #### 9 27, 87760, 6399, 10740, 94914 #### [facility] [address], [address] [place] [address] Dot Compliance Coordinator: Otto Conley MD Urea nitrogen [Mass/Vol] 7 mg/dL Normal 7-25 [facility] Comment on above: Order Comment: FASTI NG:NOFASTING: NO Performed By: #### 9 27, 66314, 6399, 68943, 66286 #### [facility] [address], [address] [place] [address] Dot Compliance Coordinator: Otto Conley MD ANCAon 02-17-2024 Atypical pANCA <1:20 Normal Neg:<1:20 [facility] Comment on above: Result Comment: The atypical pANCA pattern has been observed in a significant percentage of patients with ulcerative colitis, primary sclerosing cholangitis and autoimmune hepatitis. Performed By: #### L 3100.5800, L3300.1200, L3100.5440, L3100.5600, L3100.5700 ####[facility] [address] [place], [place], [id number] Cytoplasmic Ab <1:20 Normal Neg:<1:20 [facility] Comment on above: Performed By: #### L 3100.5800, L3300.1200, L3100.5440, L3100.5600, L3100.5700 ####[facility] [address] [place], [place], [id number] Perinuclear Ab. <1:20 Normal Neg:<1:20 [facility] Comment on above: Result Comment: The presence of positive fluorescence exhibiting P-ANCA or C-ANCA patterns alone is not specific for the diagnosis of Mikie's Granulomatosis (WG) or microscopic polyangiitis. Decisions about treatment should not be based solely on ANCA IFA results. The [employer] ANCA [employer] Consensus recommends follow up testing of positive sera with both NH- 3 and MPO-ANCA enzyme immunoassays. As many as 5% serum samples are positive only by EIA. Ref. AM J Clin Pathol 1999;111:507-513. Performed By: #### L 3100.5800, L3300.1200, L3100.5440, L3100.5600, L3100.5700 ####[facility] [address] [place], [address] Complement C3on 02-17-2024 COMP C3 108 mg/dL Normal 82-167 [facility] Comment on above: Performed By: #### L 3100.5800, L3300.1200, L3100.5440, L3100.5600, L3100.5700 ####[facility] [address] [place], [address] Complement C4on 02-17-2024 COMPLEMENT, C4 24 mg/dL Normal 12-38 [facility] Comment on above: Performed By: #### L 3100.5800, L3300.1200, L3100.5440, L3100.5600, L3100.5700 ####[facility] [address] [place], [address] Complement CH50on 02-17-2024 COMPLEMENT,CH50 38 U/mL Low >41 [facility] Comment on above: Result Comment: Age Male Female 1 - 30 days Not Estab. Not Estab. 31 days - 6 months >32 >20 7 months - 17 years >39 >39 >17 years >41 >41 NOTE: The adult (>17 years) reference interval range is used to flag abnormals on this report. If the patient is 17 years old or younger, use the table above to determine out of range values. Performed at: - [facility], [place], [place] [id number] Marketing Development Manager: Mitchell Briggs PhD, Phone: [phone] Performed By: #### L 3100.5800, L3300.1200, L3100.5440, L3100.5600, L3100.5700 ####[facility] [address] [place], [address] ANGEL Comprehensive Panelon ANGEL TABLE Comment Normal . [facility] Comment on above: Result Comment: Auto antibody [...] Sm (anti-Hendrix) SLE 15 - 30% --------- PHARMACIST HELPER Mixed Connective Tissue Disease 95% (U1 nRNP, SLE 30 - 50% anti-ribonucleoprotein) Polymyositis and/or Dermatomyositis 20% --------- Scl-70 (antiDNA Scleroderma (diffuse) 20 - 35% topoisomerase) Crest 13% --------- Kathy-1 Polymyositis and/or Dermatomyositis 20 - 40% --------- Centromere B Scleroderma - Crest variant 80% Performed at: [address] [id number] Marketing Development Manager: Mitchell Briggs PhD, Phone: [phone] Performed By: #### L 3100.5800, L3300.1200, L3100.5440, L3100.5600, L3100.5700 ####[facility] [address] [place], [address] Absolute neutrophil countOrd ered By: Ilya Peña on 02-16-2024 Neutrophils (Bld) [#/Vol] 3.2 10*3/uL 2.0-7.7 [facility] Basic Metabolic Profile (BMP )on 02-16-2024 BUN/CRE 13.3 RATIO Normal 10-20 [facility] Comment on above: Order Comment: 'TROP ' Serial specimen #1, #2 or #3: 1 1 Performed By: #### L 501.4020 #### [facility] [address] [place], [address] CA,Total 8.6 mg/dL Normal 8.5-10.1 [facility] Comment on above: Order Comment: 'TROP ' Serial specimen #1, #2 or #3: 1 1 Performed By: #### L 501.4020 #### [facility] [address] [place], [address] Chloride [Moles/Vol] 116 mmol/L High 98-107 [facility] Comment on above: Order Comment: 'TROP ' Serial specimen #1, #2 or #3: 1 1 Performed By: #### L 501.4020 #### [facility] [address] [place], [address] CO2 [Moles/Vol] 26.0 mmol/L Normal 21.0-32.0 [facility] Comment on above: Order Comment: 'TROP ' Serial specimen #1, #2 or #3: 1 1 Performed By: #### L 501.4020 #### [facility] [address] [place], [address] Creatinine [Mass/Vol] 1.20 mg/dL High 0.55-1.02 [facility] Comment on above: Order Comment: 'TROP ' Serial specimen #1, #2 or #3: 1 1 Result Comment: The validity of the calculated GFR GFRAA in patients over 70 years has not been determined. Clinical correlation is essential. Performed By: #### L 501.4020 #### [facility] [address] [place], [address] ECRCL 62.69 ml/min Normal [facility] Comment on above: Order Comment: 'TROP ' Serial specimen #1, #2 or #3: 1 1 Performed By: #### L 501.4020 #### [facility] [address] [place], [address] EST GFR - AA 61 mL/min Normal >60 [facility] Comment on above: Order Comment: 'TROP ' Serial specimen #1, #2 or #3: 1 1 Result Comment: Afri can [place] GFR Calc Performed By: #### L 501.4020 #### [facility] [address] [place], [address] GAP 2 Low 5-15 [facility] Comment on above: Order Comment: 'TROP ' Serial specimen #1, #2 or #3: 1 1 Performed By: #### L 501.4020 #### [facility] [address] [place], [address] GFR/1.73 sq M.predicted among non-blacks MDRD (S/P/Bld) [Vol rate/Area] 51 mL/min/{1.73_m2} Low >60 [facility] Comment on above: Order Comment: 'TROP ' Serial specimen #1, #2 or #3: 1 1 Result Comment: Non- GFR Calc Performed By: #### L 501.4020 #### [facility] [address] [place], [address] Glucose [Mass/Vol] 117 mg/dL High 74-106 [facility] Comment on above: Order Comment: 'TROP ' Serial specimen #1, #2 or #3: 1 1 Result Comment: Fast ing Glucose result from 100 to 125 mg/dL suggests IMPAIRED HOMEOSTASIS per A.D.A. criteria. Performed By: #### L 501.4020 #### [facility] [address] [place], [address] Potassium [Moles/Vol] 3.8 mmol/L Normal 3.5-5.1 [facility] Comment on above: Order Comment: 'TROP ' Serial specimen #1, #2 or #3: 1 1 Performed By: #### L 501.4020 #### [facility] [address] [place], [address] Sodium [Moles/Vol] 144 mmol/L Normal 136-145 [facility] Comment on above: Order Comment: 'TROP ' Serial specimen #1, #2 or #3: 1 1 Performed By: #### L 501.4020 #### [facility] [address] [place], [address] Urea nitrogen [Mass/Vol] 16 mg/dL Normal 7-18 [facility] Comment on above: Order Comment: 'TROP ' Serial specimen #1, #2 or #3: 1 1 Performed By: #### L 501.4020 #### [facility] [address] [place], [address] Basophil percentageOrdered B y: Ilya Peña on 02-16-2024 Basophils/100 WBC (Bld) 0.3 % 0-1 [facility] Blood urea nitrogen (BUN)/cr eatinine ratioOrdered By: Ilya Peña on 02-16-2024 Urea nitrogen/Creatinine [Mass ratio] 13.3 mg/mg 10-20 [facility] CBC W/Diff, Automatedon 0 Absolute Lymph 1.88 X10 3/uL Normal 0.83-4.51 [facility] Comment on above: Performed By: #### L 501.4020 #### [facility] [address] [place], [address] Absolute Neut 3.2 X10 3/uL Normal 2.0-7.7 [facility] Comment on above: Performed By: #### L 501.4020 #### [facility] [address] [place], [address] Basophils/100 WBC (Bld) 0.3 % Normal 0-1 [facility] Comment on above: Performed By: #### L 501.4020 #### [facility] [address] [place], [address] Eosinophils/100 WBC (Bld) 1.3 % Normal 0-5 [facility] Comment on above: Performed By: #### L 501.4020 #### [facility] [address] [place], [address] Erythrocyte distribution width (RBC) [Ratio] 11.9 % Normal 11.6-14.6 [facility] Comment on above: Performed By: #### L 501.4020 #### [facility] [address] [place], [address] Hematocrit (Bld) [Volume fraction] 32.2 % Low 37-47 [facility] Comment on above: Performed By: #### L 501.4020 #### [facility] [address] [place], [address] Hemoglobin (Bld) [Mass/Vol] 10.7 g/dL Low 12.0-15.0 [facility] Comment on above: Performed By: #### L 501.4020 #### [facility] [address] [place], [address] IG% 0.200 Normal 0.0-0.9 [facility] Comment on above: Result Comment: IG% - Immature Granulocytes (promyelocytes, myelocytes and metamyelocytes) > 1% indicates that a LEFT SHIFT is Present. Performed By: #### L 501.4020 #### [facility] [address] [place], [address] Lymphocytes/100 WBC (Bld) 31.6 % Normal 19-41 [facility] Comment on above: Performed By: #### L 501.4020 #### [facility] [address] [place], [address] MCH (RBC) [Entitic mass] 32.6 pg High 27.0-32.0 [facility] Comment on above: Performed By: #### L 501.4020 #### [facility] [address] [place], [address] MCHC (RBC) [Mass/Vol] 33.2 g/dL Normal 32-36 [facility] Comment on above: Performed By: #### L 501.4020 #### [facility] [address] [place], [address] MCV (RBC) [Entitic vol] 98.2 fL Normal 81-99 [facility] Comment on above: Performed By: #### L 501.4020 #### [facility] [address] [place], [address] Monocytes/100 WBC (Bld) 12.6 % High 0-10 [facility] Comment on above: Performed By: #### L 501.4020 #### [facility] [address] [place], [address] Neutrophils/100 WBC (Bld) 54.0 % Normal 47-70 [facility] Comment on above: Performed By: #### L 501.4020 #### [facility] [address] [place], [address] Nucleated RBC (Bld) [#/Vol] 0 10*3/uL Normal 0-5 [facility] Comment on above: Performed By: #### L 501.4020 #### [facility] [address] [place], [address] Platelet mean volume (Bld) [Entitic vol] 9.4 fL Normal 6.2-12.0 [facility] Comment on above: Performed By: #### L 501.4020 #### [facility] [address] [place], [address] Platelets (Bld) [#/Vol] 198 10*3/uL Normal 150-450 [facility] Comment on above: Performed By: #### L 501.4020 #### [facility] [address] [place], [address] RBC (Bld) [#/Vol] 3.28 10*6/uL Low 4.2-5.4 [facility] Comment on above: Performed By: #### L 501.4020 #### [facility] [address] [place], [address] RDW SD 43.0 fl Normal 35.1-43.9 [facility] Comment on above: Performed By: #### L 501.4020 #### [facility] [address] [place], [address] WBC (Bld) [#/Vol] 6.0 10*3/uL Normal 4.4-11.0 [facility] Comment on above: Performed By: #### L 501.4020 #### [facility] [address] [place], [address] Carbon dioxide measurementOr dered By: Ilya Peña on 02-16-2024 CO2 [Moles/Vol] 26.0 mmol/L 21.0-32.0 [facility] Chloride measurementOrdered By: Ilya Peña on 02-16-2024 Chloride [Moles/Vol] 116 mmol/L High 98-107 [facility] Discharge Instructionon Discharge Instruction [facility] Medical Records Department [address] [place] [address] Instructions for Home/Discharge Instructions 02/16/24 0929 MR#: [id number] Acct: [id number] Name: TERESA CASH Rep #: [id number] : 1975 48 From: Ilya Peña MD [...] Order can be placed): Home, Self Care 02/16/24930 Ilya Peña MD CC: GALILEA WHITAKER; Dr. Susy Carranza DO; Dr. Criselda South MD Signed Normal [facility] Eosinophil percentageOrdered By: Ilya Peña on 02-16-2024 Eosinophils/100 WBC (Bld) 1.3 % 0-5 [facility] Erythrocyte distribution wid th (RBC) [Ratio]Ordered By: Ilya Peña on 02-16-2024 Erythrocyte distribution width (RBC) [Entitic vol] 43.0 fL 35.1-43.9 [facility] Erythrocyte distribution wid th ratioOrdered By: Ilya Peña on 02-16-2024 Erythrocyte distribution width (RBC) [Ratio] 11.9 % 11.6-14.6 [facility] Estimated glomerular filtrat ion rate (GFR) AmericanOrdered By: Ilya Peña on 02-16-2024 Estimated GFR (MDRD) Amer 61 mL/min >60 [facility] Comment on above: GFR Calc Estimation of creatinine amarjit aranceOrdered By: Ilya Peña on 02-16-2024 Estimated Creatinine Clearance Calc 62.69 ml/min [facility] Glomerular filtration rate ( GFR) estimationOrdered By: Ilya Peña on 02-16-2024 Estimated GFR (MDRD) Non-Af Amer 51 mL/min Low >60 [facility] Comment on above: Non- GFR Calc Glucose measurementOrdered B y: Ilya Peña on 02-16-2024 Glucose [Mass/Vol] 117 mg/dL High 74-106 [facility] Comment on above: Fasting Glucose resu lt from 100 to 125 mg/dL suggests IMPAIRED HOMEOSTASIS per A.D.A. criteria. Hematocrit Auto (Bld) [Volum e fraction]Ordered By: Ilya Peña on 02-16-2024 Hematocrit (Bld) [Volume fraction] 32.2 % Low 37-47 [facility] Hemoglobin measurementOrdere d By: Ilya Peña on 02-16-2024 Hemoglobin (Bld) [Mass/Vol] 10.7 g/dL Low 12.0-15.0 [facility] Immature granulocytes/100 WB C Auto (Bld)Ordered By: Ilya Peña on 02-16-2024 Immature granulocytes/100 WBC (Bld) 0.200 % 0.0-0.9 [facility] Comment on above: IG% - Immature Granu locytes (promyelocytes, myelocytes and metamyelocytes) > 1% indicates that a LEFT SHIFT is Present. L501.4020on 02-16-2024 TROPONIN-I HS 15 pg/mL Normal 3.0-54.0 [facility] Comment on above: Order Comment: 'TROP ' Serial specimen #1, #2 or #3: 1 1 Result Comment: Plea se Note: New Test Units and Gender Specific Reference Ranges. For more information see Policy Stat Procedure [place] High Sensitivity Troponin (TNIH) and attachments. Performed By: #### L 501.4020 #### [facility] [address] [place], [place], [address] TROPONIN-I HS 17 pg/mL Normal 3.0-54.0 [facility] Comment on above: Order Comment: Comme nts: SPECIMEN #2 'TROP' Serial specimen #1, #2 or #3: 2 Result Comment: Plea se Note: New Test Units and Gender Specific Reference Ranges. For more information see Policy Stat Procedure [place] High Sensitivity Troponin (TNIH) and attachments. Performed By: #### L 501.4020 #### [facility] [address] [place], [place], [address] Lymphocytes Auto (Unsp spec) [#/Vol]Ordered By: Ilya Peña on 02-16-2024 Lymphocytes (Bld) [#/Vol] 1.88 10*3/uL 0.83-4.5 1 [facility] Lymphocytes/100 WBC Auto (Un sp spec)Ordered By: Ilya Peña on 02-16-2024 Lymphocytes/100 WBC (Bld) 31.6 % 19-41 [facility] MCV (mean corpuscular volume ) determinationOrdered By: Ilya Peña on 02-16-2024 MCV (RBC) [Entitic vol] 98.2 fL 81-99 [facility] Mean corpuscular hemoglobin (MCH) determinationOrdered By: Ilya Peña on 02-16-2024 MCH (RBC) [Entitic mass] 32.6 pg High 27.0-32.0 [facility] Mean corpuscular hemoglobin concentration (MCHC) determinationOrdered By: Ilya Peña on 02-16-2024 MCHC (RBC) [Mass/Vol] 33.2 g/dL 32-36 [facility] Mean platelet volume determi nationOrdered By: Ilya Peña on 02-16-2024 Platelet mean volume (Bld) [Entitic vol] 9.4 fL 6.2-12.0 [facility] Monocyte percentageOrdered B y: Ilya Peña on 02-16-2024 Monocytes/100 WBC (Bld) 12.6 % High 0-10 [facility] Neutrophil percentageOrdered By: Ilya Peña on 02-16-2024 Neutrophils/100 WBC (Bld) 54.0 % 47-70 [facility] Nucleated red blood cell per centageOrdered By: Ilya Peña on 02-16-2024 Nucleated RBC/100 WBC (Bld) [Ratio] 0 % 0-5 [facility] Platelet countOrdered By: Lupe Peña on 02-16-2024 Platelets (Bld) [#/Vol] 198 10*3/uL 150-450 [facility] Potassium measurementOrdered By: Ilya Peña on 02-16-2024 Potassium [Moles/Vol] 3.8 mmol/L 3.5-5.1 [facility] RBC Auto (Bld) [#/Vol]Ordere d By: Ilya Peña on 02-16-2024 RBC (Bld) [#/Vol] 3.28 10*6/uL Low 4.2-5.4 [facility] Serum anion gap measurementO rdered By: Ilya Peña on 02-16-2024 Anion gap [Moles/Vol] 2 mmol/L Low 5-15 [facility] Serum or plasma calcium zaire urement (mass/volume)Ordered By: Ilya Peña on 02-16-2024 Calcium [Mass/Vol] 8.6 mg/dL 8.5-10.1 [facility] Serum or plasma creatinine m easurement (mass/volume)Ordered By: Ilya Peña on 02-16-2024 Creatinine [Mass/Vol] 1.20 mg/dL High 0.55-1.02 [facility] Comment on above: The validity of the calculated GFR & GFRAA in patients over 70 years has not been determined. Clinical correlation is essential. Serum or plasma urea nitroge n measurement (mass/volume)Ordered By: Ilya Peña on 02-16-2024 Urea nitrogen [Mass/Vol] 16 mg/dL 7-18 [facility] Sodium levelOrdered By: Dung Peña on 02-16-2024 Sodium [Moles/Vol] 144 mmol/L 136-145 [facility] Troponin IOrdered By: Chleo Carranza on 02-16-2024 Troponin I High Sensitivity 15 pg/mL 3.0-54.0 [facility] Comment on above: Please Note: New Lesly t Units and Gender Specific Reference Ranges. For more information see Policy Stat Procedure [place] High Sensitivity Troponin (TNIH) and attachments. White blood cell (WBC) count Ordered By: Ilya Peña on 02-16-2024 WBC (Bld) [#/Vol] 6.0 10*3/uL 4.4-11.0 [facility] 12 Lead EKGon 02-15-2024 12 Lead EKG [facility] [address] [place] [address] 12 Lead EKG 02/15/24 2154 MR#: [id number] Acct: [id number] Name: TERESA CASH Rep #: [id number] : 1975 48 From: Micky Moss MD Attending Dr: Dr. Ilya Peña MD Status : ADM IN Ordering Dr: Susy Carranza DO Date: 02/15/24 Location: [facility] Sex: F C Admitted: 02/14/24 Test Reason [...] COMPARISON REQUIRED DATA IS UNCONFIRMED Confirmed by ISA DE, MICKY ([id number]), online editor RADHA PACE ([id number]) on 02/16/2024 10:00:29 AM Referred By: DILLON Confirmed By: MICKY MOSS MD 02/16/24999 Date Micky Moss MD CC: GALILEA WHITAKER; Dr. Susy Carranza DO; Dr. Ilya Peña MD Signed Normal [facility] Basic Metabolic Profile (BMP )on 02-15-2024 BUN/CRE 13.1 RATIO Normal 10-20 [facility] Comment on above: Performed By: #### L 501.9985 #### [facility] [address] [place], [address] CA,Total 8.8 mg/dL Normal 8.5-10.1 [facility] Comment on above: Performed By: #### L 501.9985 #### [facility] [address] [facility] [place] [place], [address] Chloride [Moles/Vol] 113 mmol/L High 98-107 [facility] Comment on above: Performed By: #### L 501.9985 #### [facility] [address] [facility] [place], [address] CO2 [Moles/Vol] 22.0 mmol/L Normal 21.0-32.0 [facility] Comment on above: Performed By: #### L 501.9985 #### [facility] [address] [place], [address] Creatinine [Mass/Vol] 2.06 mg/dL High 0.55-1.02 [facility] Comment on above: Result Comment: The validity of the calculated GFR GFRAA in patients over 70 years has not been determined. Clinical correlation is essential. Performed By: #### L 501.9985 #### [facility] [address] [place], [address] ECRCL 36.52 ml/min Normal [facility] Comment on above: Performed By: #### L 501.9985 #### [facility] [address] [place], [address] EST GFR - AA 33 mL/min Low >60 [facility] Comment on above: Result Comment: Afri can [place] GFR Calc Performed By: #### L 501.9985 #### [facility] [address] [place], [address] GAP 6 Normal 5-15 [facility] Comment on above: Performed By: #### L 501.9985 #### [facility] [address] [place], [address] GFR/1.73 sq M.predicted among non-blacks MDRD (S/P/Bld) [Vol rate/Area] 27 mL/min/{1.73_m2} Low >60 [facility] Comment on above: Result Comment: Non- GFR Calc Performed By: #### L 501.9985 #### [facility] [address] [place], [address] Glucose [Mass/Vol] 127 mg/dL High 74-106 [facility] Comment on above: Result Comment: Fast ing Glucose result greater than or equal to 126 mg/dL suggests DIABETES MELLITUS per A.D.A. criteria. Performed By: #### L 501.9985 #### [facility] [address] [place], [address] Potassium [Moles/Vol] 3.8 mmol/L Normal 3.5-5.1 [facility] Comment on above: Performed By: #### L 501.9985 #### [facility] [address] [place], [address] Sodium [Moles/Vol] 141 mmol/L Normal 136-145 [facility] Comment on above: Performed By: #### L 501.9985 #### [facility] [address] [place], [address] Urea nitrogen [Mass/Vol] 27 mg/dL High 7-18 [facility] Comment on above: Performed By: #### L 501.9985 #### [facility] [address] [place], [address] Bilirubin Test strip Ql (U)O rdered By: Ilya Peña on 02-15-2024 Bilirubin Ql (U) Negative Negative [facility] CBC W/Diff, Automatedon Absolute Lymph 1.27 X10 3/uL Normal 0.83-4.51 [facility] Comment on above: Performed By: #### L 501.9985 #### [facility] [address] [place], [address] Absolute Neut 4.3 X10 3/uL Normal 2.0-7.7 [facility] Comment on above: Performed By: #### L 501.9985 #### [facility] [address] [place], [address] Basophils/100 WBC (Bld) 0.3 % Normal 0-1 [facility] Comment on above: Performed By: #### L 501.9985 #### [facility] [address] [place], [address] Eosinophils/100 WBC (Bld) 0.5 % Normal 0-5 [facility] Comment on above: Performed By: #### L 501.9985 #### [facility] [address] [place], [address] Erythrocyte distribution width (RBC) [Ratio] 12.0 % Normal 11.6-14.6 [facility] Comment on above: Performed By: #### L 501.9985 #### [facility] [address] [place], [address] Hematocrit (Bld) [Volume fraction] 33.4 % Low 37-47 [facility] Comment on above: Performed By: #### L 501.9985 #### [facility] [address] [place], [address] Hemoglobin (Bld) [Mass/Vol] 11.0 g/dL Low 12.0-15.0 [facility] Comment on above: Performed By: #### L .[id number] #### [facility] [address] [place], [address] IG% 0.300 Normal 0.0-0.9 [facility] Comment on above: Result Comment: IG% - Immature Granulocytes (promyelocytes, myelocytes and metamyelocytes) > 1% indicates that a LEFT SHIFT is Present. Performed By: #### L 501.9985 #### [facility] [address] [place], [address] Lymphocytes/100 WBC (Bld) 19.8 % Normal 19-41 [facility] Comment on above: Performed By: #### L 501.9985 #### [facility] [address] [place], [address] MCH (RBC) [Entitic mass] 32.0 pg Normal 27.0-32.0 [facility] Comment on above: Performed By: #### L 501.9985 #### [facility] [address] [place], [address] MCHC (RBC) [Mass/Vol] 32.9 g/dL Normal 32-36 [facility] Comment on above: Performed By: #### L 501.9985 #### [facility] [address] [place], [address] MCV (RBC) [Entitic vol] 97.1 fL Normal 81-99 [facility] Comment on above: Performed By: #### L 501.9985 #### [facility] [address] [place], [address] Monocytes/100 WBC (Bld) 12.8 % High 0-10 [facility] Comment on above: Performed By: #### L 501.9985 #### [facility] [address] [place], [address] Neutrophils/100 WBC (Bld) 66.3 % Normal 47-70 [facility] Comment on above: Performed By: #### L 501.9985 #### [facility] [address] [place], [address] Nucleated RBC (Bld) [#/Vol] 0 10*3/uL Normal 0-5 [facility] Comment on above: Performed By: #### L 501.9985 #### [facility] [address] [place], [address] Platelet mean volume (Bld) [Entitic vol] 9.3 fL Normal 6.2-12.0 [facility] Comment on above: Performed By: #### L 501.9985 #### [facility] [address] [place], [address] Platelets (Bld) [#/Vol] 193 10*3/uL Normal 150-450 [facility] Comment on above: Performed By: #### L 501.9985 #### [facility] [address] [place], [address] RBC (Bld) [#/Vol] 3.44 10*6/uL Low 4.2-5.4 [facility] Comment on above: Performed By: #### L 501.9985 #### [facility] [address] [place], [address] RDW SD 42.6 fl Normal 35.1-43.9 [facility] Comment on above: Performed By: #### L 501.9985 #### [facility] [address] [place], [address] WBC (Bld) [#/Vol] 6.4 10*3/uL Normal 4.4-11.0 [facility] Comment on above: Performed By: #### L 501.9985 #### [facility] [address] [place], [address] CPK Total, Creatine Kinaseon 02-15-2024 CPK TOTAL 43 U/L Normal 26-192 [facility] Comment on above: Performed By: #### L 501.9985 #### [facility] [address] [place], [address] Epithelial cells.squamous LM Ql (Urine sed)Ordered By: Ilya Peña on 02-15-2024 Epithelial cells.squamous LM.HPF (Urine sed) [#/Area] 0 /[HPF] 5-10 [facility] Glucose Ql (U)Ordered By: Lupe Peña on 02-15-2024 Urine Glucose (UA) Normal mg/dl Normal [facility] Ketones Test strip Ql (U)Ord ered By: Ilya Peña on 02-15-2024 Ketones Ql (U) Negative Negative [facility] L501.4020on 02-15-2024 TROPONIN-I HS 16 pg/mL Normal 3.0-54.0 [facility] Comment on above: Order Comment: 'TROP ' Serial specimen #1, #2 or #3: 1 1 Result Comment: Plea se Note: New Test Units and Gender Specific Reference Ranges. For more information see Policy Stat Procedure [place] High Sensitivity Troponin (TNIH) and attachments. Performed By: #### L 501.4020 #### [facility] [address] [place], [place], [address] Microscopic analysis of urin e for red blood cells (RBC)Ordered By: Ilya Peña on 02-15-2024 Urine RBC 0 SEEN /hpf 0-5 [facility] Mucus LM Ql (Urine sed)Order ed By: Ilya Peña on 02-15-2024 Mucus Ql (Urine sed) 0 SEEN /hpf [facility] Nitrite Test strip Ql (U)Ord ered By: Ilya Peña on 02-15-2024 Nitrite Ql (U) Negative Negative [facility] Protein Test strip Ql (U)Ord ered By: Ilya Peña on 02-15-2024 Protein Ql (U) 30 mg/dl High Negative [facility] Protein+Creatinine Ratio,Uri neon 02-15-2024 PROT:CRE RATIO 438 mg/g CRE High 0-200 [facility] Comment on above: Performed By: #### L 501.4020 #### [facility] [address] [place], [address] Protein (U) [Mass/Vol] 28.5 mg/dL High <11.9 [facility] Comment on above: Performed By: #### L 501.4020 #### [facility] [address] [place], [address] UR CREAT 65.00 mg/dL Normal NO RANGE EST. [facility] Comment on above: Performed By: #### L 501.4020 #### [facility] [address] [place], [address] Protein/Creatinine (U) [Mass ratio]Ordered By: Ilya Peña on 02-15-2024 Urine Protein/Creatinine Ratio 438 mg/g CRE High 0-200 [facility] Random urine protein measure mentOrdered By: Ilya Peña on 01-05-2025 Protein (U) [Mass/Vol] 28.5 mg/dL High 0.0-11.8 [facility] Total creatine kinase measur ementOrdered By: Criselda South on 02-15-2024 CK [Catalytic activity/Vol] 43 U/L 26-192 [facility] Urinalysis, Completeon 02-14 BACTERIA 0 SEEN Normal None Seen [facility] Comment on above: Order Comment: 'TROP ' Serial specimen #1, #2 or #3: 1 1 Performed By: #### L 501.4020 #### [facility] [address] [place], [address] EPI,SQUAMOUS 0 SEEN Normal 5-10 [facility] Comment on above: Order Comment: 'TROP ' Serial specimen #1, #2 or #3: 1 1 Performed By: #### L 501.4020 #### [facility] [address] [place], [address] Mucus Ql (Urine sed) 0 SEEN Normal [facility] Comment on above: Order Comment: 'TROP ' Serial specimen #1, #2 or #3: 1 1 Performed By: #### L 501.4020 #### [facility] [address] [place], [address] RBC 0 SEEN Normal 0-5 [facility] Comment on above: Order Comment: 'TROP ' Serial specimen #1, #2 or #3: 1 1 Performed By: #### L 501.4020 #### [facility] [address] [place], [address] WBC 0 SEEN Normal 0-5 [facility] Comment on above: Order Comment: 'TROP ' Serial specimen #1, #2 or #3: 1 1 Performed By: #### L 501.4020 #### [facility] [address] [place], [address] Urine blood detectionOrdered By: Ilya Peña on 02-15-2024 Urine Occult Blood 25 /ul High Negative [facility] Urine clarityOrdered By: [place] Peña on 02-15-2024 Clarity (U) Clear Clear [facility] Urine color determinationOrd ered By: Ilya Peña on 02-15-2024 Color (U) Yellow Yellow [facility] Urine creatinine measurement (mass/volume)Ordered By: Ilya Peña on 02-15-2024 Creatinine (U) [Mass/Vol] 65.00 mg/dL NO RANGE EST. [facility] Urine leukocyte esterase det ection by dipstickOrdered By: Ilya Peña on 02-15-2024 Leukocyte esterase Test strip Ql (U) Negative Negative [facility] Urine pHOrdered By: Ilya Peña on 02-15-2024 pH (U) 6.0 [pH] 5.0 - 8.0 [facility] Urine sediment bacteria coun t by microscopy (number/high power field)Ordered By: Ilya Peña on 02-15-2024 Bacteria LM.HPF (Urine sed) [#/Area] 0 /[HPF] None Seen [facility] Urine specific gravity measu rementOrdered By: Ilya Peña on 02-15-2024 Specific gravity (U) [Rel density] 1.010 1.002-1.030 [facility] Urobilinogen Ql (U)Ordered B y: Ilya Peña on 02-15-2024 Urine Urobilinogen Normal mg/dl Normal [facility] White blood cell countOrdere d By: Ilya Peña on 02-15-2024 Urine WBC 0 SEEN /hpf 0-5 [facility] 12 Lead EKGon 02-14-2024 12 Lead EKG [facility] Cardi[facility] Services [address] [place] [address] 12 Lead EKG 02/14/24 0104 MR#: [id number] Acct: [id number] Name: TERESA CASH Rep #: [id number] : 1975 48 From: Micky Moss MD [...] , age undetermined Abnormal ECG Confirmed by MICKY MOSS MD ([id number]), online editor LISA NEAL ([id number]) on 02/16/2024 6:57:38 AM Referred By: Confirmed By: MICKY MOSS MD 02/16/24 0657 Date Micky Moss MD CC: GALILEA WHITAKER; Dr. Bonnie Weber DO; Dr. Ilya Peña MD Signed Normal [facility] Abdomen/Pelvis without Conto n 02-14-2024 Abdomen/Pelvis without Cont [facility] Imaging Services [address] [place] [address] Abdomen/Pelvis without Cont MR#: [id number] Acct: [id number] Name: TERESA CASH Rep #: [id number] : 1975 F 48 From: Vania Reynoso PCP: GALILEA WHITAKER Status: REG ER Study: Abdomen/Pelvis without Cont Date of Exam: 06/04 Exam# [id number] Ordering Dr: Bonnie Weber DO [id number] E EXAM: CT Abdomen And Pelvis W/O [...] Signed: Vania Conroy MD at 2:30 EST Reading Location ID and State: [id number] [facility] Tel , Service support , CC: GALILEA WHITAKER; Dr. Bonnie Weber DO Grinding Room Inspector: Signed Normal [facility] Albumin to globulin ratioOrd ered By: Ilya Peña on 02-14-2024 Albumin/Globulin [Mass ratio] 1.1 {ratio} 0.9-2.4 [facility] Atypical perinuclear antineu trophil cytoplasmic antibodies measurementOrdered By: Susy Carranza on 02-14-2024 Atypical p-ANCA <1:20 titer Neg:<1:20 [facility] Comment on above: The atypical pANCA p attern has been observed in asignificant percentage of patients with ulcerative colitis,primary sclerosing cholangitis and autoimmune hepatitis. Bilirubin, totalOrdered By: Ilya Peña on 02-14-2024 Bilirubin [Mass/Vol] 0.40 mg/dL 0.20-1.00 [facility] Comment on above: For patients on eltr ombopag therapy, use of Dimension [place] TBIL is not recommended. C-reactive protein measureme nt by high sensitivity methodOrdered By: Susy Carranza on 02-14-2024 C-Reactive Protein Extended Range < 2.90 mg/L 0.0-3.0 [facility] Comment on above: C-Reactive Protein ( CRP) provides useful information for thediagnosis, therapy and monitoring of inflammatory processesand associated diseases. For the evaluation of Relative Riskfor Cardiovascular Disease, a High Sensitivity CRP (HSCRP)should be ordered. CBC W/Diff, Automatedon Absolute Lymph 0.80 X10 3/uL Low 0.83-4.51 [facility] Comment on above: Performed By: #### L 100.0100, L500.4050 ####[facility] [address] [place], [address] Absolute Neut 7.5 X10 3/uL Normal 2.0-7.7 [facility] Comment on above: Performed By: #### L 100.0100, L500.4050 ####[facility] [address] [place], [address] Basophils/100 WBC (Bld) 0.5 % Normal 0-1 [facility] Comment on above: Performed By: #### L 100.0100, L500.4050 ####[facility] [address] [place], [address] Eosinophils/100 WBC (Bld) 0.1 % Normal 0-5 [facility] Comment on above: Performed By: #### L 100.0100, L500.4050 ####[facility] [address] [place], [address] Erythrocyte distribution width (RBC) [Ratio] 11.9 % Normal 11.6-14.6 [facility] Comment on above: Performed By: #### L 100.0100, L500.4050 ####[facility] [address] [place], [address] Hematocrit (Bld) [Volume fraction] 38.9 % Normal 37-47 [facility] Comment on above: Performed By: #### L 100.0100, L500.4050 ####[facility] [address] [place], [address] Hemoglobin (Bld) [Mass/Vol] 13.0 g/dL Normal 12.0-15.0 [facility] Comment on above: Performed By: #### L 100.0100, L500.4050 ####[facility] [address] [place], [address] IG% 0.500 Normal 0.0-0.9 [facility] Comment on above: Result Comment: IG% - Immature Granulocytes (promyelocytes, myelocytes and metamyelocytes) > 1% indicates that a LEFT SHIFT is Present. Performed By: #### L 100.0100, L500.4050 ####[facility] [address] [place], [address] Lymphocytes/100 WBC (Bld) 8.1 % Low 19-41 [facility] Comment on above: Performed By: #### L 100.0100, L500.4050 ####[facility] [address] [place], [address] MCH (RBC) [Entitic mass] 32.5 pg High 27.0-32.0 [facility] Comment on above: Performed By: #### L 100.0100, L500.4050 ####[facility] [address] [place], [address] MCHC (RBC) [Mass/Vol] 33.4 g/dL Normal 32-36 [facility] Comment on above: Performed By: #### L 100.0100, L500.4050 ####[facility] [address] [place], [address] MCV (RBC) [Entitic vol] 97.3 fL Normal 81-99 [facility] Comment on above: Performed By: #### L 100.0100, L500.4050 ####[facility] [address] [place], [address] Monocytes/100 WBC (Bld) 15.0 % High 0-10 [facility] Comment on above: Performed By: #### L 100.0100, L500.4050 ####[facility] [address] [place], [address] Neutrophils/100 WBC (Bld) 75.8 % High 47-70 [facility] Comment on above: Performed By: #### L 100.0100, L500.4050 ####[facility] [address] [place], [address] Nucleated RBC (Bld) [#/Vol] 0 10*3/uL Normal 0-5 [facility] Comment on above: Performed By: #### L 100.0100, L500.4050 ####[facility] [address] [place], [address] Platelet mean volume (Bld) [Entitic vol] 9.3 fL Normal 6.2-12.0 [facility] Comment on above: Performed By: #### L 100.0100, L500.4050 ####[facility] [address] [place], [address] Platelets (Bld) [#/Vol] 259 10*3/uL Normal 150-450 [facility] Comment on above: Performed By: #### L 100.0100, L500.4050 ####[facility] [address] [place], [address] RBC (Bld) [#/Vol] 4.00 10*6/uL Low 4.2-5.4 [facility] Comment on above: Performed By: #### L 100.0100, L500.4050 ####[facility] [address] [place], [address] RDW SD 42.5 fl Normal 35.1-43.9 [facility] Comment on above: Performed By: #### L 100.0100, L500.4050 ####[facility] [address] [place], [address] WBC (Bld) [#/Vol] 9.9 10*3/uL Normal 4.4-11.0 [facility] Comment on above: Performed By: #### L 100.0100, L500.4050 ####[facility] [address] [place], [address] Absolute Lymph 1.15 X10 3/uL Normal 0.83-4.51 [facility] Comment on above: Performed By: #### L 501.2450, L500.4050, L100.0100 ####[facility] [address] [place], [address] Absolute Neut 7.8 X10 3/uL High 2.0-7.7 [facility] Comment on above: Performed By: #### L 501.2450, L500.4050, L100.0100 ####[facility] [address] [place], [address] Basophils/100 WBC (Bld) 0.3 % Normal 0-1 [facility] Comment on above: Performed By: #### L 501.2450, L500.4050, L100.0100 ####[facility] [address] [place], [address] Eosinophils/100 WBC (Bld) 0.7 % Normal 0-5 [facility] Comment on above: Performed By: #### L 501.2450, L500.4050, L100.0100 ####[facility] [address] [place], [address] Erythrocyte distribution width (RBC) [Ratio] 11.9 % Normal 11.6-14.6 [facility] Comment on above: Performed By: #### L 501.2450, L500.4050, L100.0100 ####[facility] [address] [place], [address] Hematocrit (Bld) [Volume fraction] 40.6 % Normal 37-47 [facility] Comment on above: Performed By: #### L 501.2450, L500.4050, L100.0100 ####[facility] [address] [place], [address] Hemoglobin (Bld) [Mass/Vol] 13.8 g/dL Normal 12.0-15.0 [facility] Comment on above: Performed By: #### L 501.2450, L500.4050, L100.0100 ####[facility] [address] [place], [address] IG% 0.300 Normal 0.0-0.9 [facility] Comment on above: Result Comment: IG% - Immature Granulocytes (promyelocytes, myelocytes and metamyelocytes) > 1% indicates that a LEFT SHIFT is Present. Performed By: #### L 501.2450, L500.4050, L100.0100 ####[facility] [address] [place], [address] Lymphocytes/100 WBC (Bld) 11.5 % Low 19-41 [facility] Comment on above: Performed By: #### L 501.2450, L500.4050, L100.0100 ####[facility] [address] [place], [address] MCH (RBC) [Entitic mass] 32.5 pg High 27.0-32.0 [facility] Comment on above: Performed By: #### L 501.2450, L500.4050, L100.0100 ####[facility] [address], [address] MCHC (RBC) [Mass/Vol] 34.0 g/dL Normal 32-36 [facility] Comment on above: Performed By: #### L 501.2450, L500.4050, L100.0100 ####[facility] [address] [place], [address] MCV (RBC) [Entitic vol] 95.5 fL Normal 81-99 [facility] Comment on above: Performed By: #### L 501.2450, L500.4050, L100.0100 ####[facility] [address], [address] Monocytes/100 WBC (Bld) 9.4 % Normal 0-10 [facility] Comment on above: Performed By: #### L 501.2450, L500.4050, L100.0100 ####[facility] [address] [place], [address] Neutrophils/100 WBC (Bld) 77.8 % High 47-70 [facility] Comment on above: Performed By: #### L 501.2450, L500.4050, L100.0100 ####[facility] [address], [address] Nucleated RBC (Bld) [#/Vol] 0 10*3/uL Normal 0-5 [facility] Comment on above: Performed By: #### L 501.2450, L500.4050, L100.0100 ####[facility] [address] [place], [address] Platelet mean volume (Bld) [Entitic vol] 9.0 fL Normal 6.2-12.0 [facility] Comment on above: Performed By: #### L 501.2450, L500.4050, L100.0100 ####[facility] [address] [place], [address] Platelets (Bld) [#/Vol] 295 10*3/uL Normal 150-450 [facility] Comment on above: Performed By: #### L 501.2450, L500.4050, L100.0100 ####[facility] [address] [place], [address] RBC (Bld) [#/Vol] 4.25 10*6/uL Normal 4.2-5.4 [facility] Comment on above: Performed By: #### L 501.2450, L500.4050, L100.0100 ####[facility] [address] [place], [address] RDW SD 41.3 fl Normal 35.1-43.9 [facility] Comment on above: Performed By: #### L 501.2450, L500.4050, L100.0100 ####[facility] [address] [place], [address] WBC (Bld) [#/Vol] 10.0 10*3/uL Normal 4.4-11.0 [facility] Comment on above: Performed By: #### L 501.2450, L500.4050, L100.0100 ####[facility] [address] [place], [address] CPK Total, Creatine Kinaseon 02-14-2024 CPK TOTAL 67 U/L Normal 26-192 [facility] Comment on above: Performed By: #### L 501.3620, L501.6710 ####[facility] [address] [place], [address] CRPon 02-14-2024 C-REACTIVE PROT < 2.90 Normal 0.0-3.0 [facility] Comment on above: Result Comment: C-Re active Protein (CRP) provides useful information for the diagnosis, therapy and monitoring of inflammatory processes and associated diseases. For the evaluation of Relative Risk for Cardiovascular Disease, a High Sensitivity CRP (HSCRP) should be ordered. Performed By: #### L 501.3620, L501.6710 ####[facility] [address] [place], [place], [address] Centromere B antibody assayO rdered By: Susy Carranza on 02-14-2024 Centromere B Antibody <0.2 AI 0.0-0.9 [facility] Comment on above: Previous reported re sult: TNP AIEdited by: ADRIANA on 02/16/24:1407 AMENDED REPORT 02/16/24 140 ANTI-CENT B previously reported as: Test not performed Chromatin antibody assayOrde red By: Susy Carranza on 02-14-2024 Antichromatin Antibodies <0.2 AI 0.0-0.9 [facility] Comment on above: Previous reported re sult: TNP AIEdited by: ADRIANA on 02/16/24:1407 AMENDED REPORT 02/16/24 140 ANTICHROMATIN previously reported as: Test not performed Complement C3 assayOrdered B y: Susy Carranza on 02-14-2024 Complement C3 108 mg/dL 82-167 [facility] Complement C4 [Mass/Vol]Orde red By: Susy Carranza on 02-14-2024 Complement C4 24 mg/dL 12-38 [facility] Comprehensive Metabolic Prof ilon 02-14-2024 Albumin [Mass/Vol] 3.5 g/dL Normal 3.2-5.0 [facility] Comment on above: Order Comment: CURRY Sullivan PREVIOUS SPECIMEN REJECTED DUE TO SPECIMEN BEING QNS POSSIBLY CONTAMINATED. 02/14/24 0832 Sameera Guzman Performed By: #### L 501.5200, L500.4050, L501.2300, L501.9520 #### [facility] [address] [place], [address] Albumin/Globulin [Mass ratio] 1.1 {ratio} Normal 0.9-2.4 [facility] Comment on above: Order Comment: REDRA W. PREVIOUS SPECIMEN REJECTED DUE TO SPECIMEN BEING QNS POSSIBLY CONTAMINATED. 02/14/24831 Sameera Guzman Performed By: #### L 501.5200, L500.4050, L501.2300, L501.9520 #### [facility] [address] [place], [address] ALK P 85 U/L Normal 45-117 [facility] Comment on above: Order Comment: REDRA W. PREVIOUS SPECIMEN REJECTED DUE TO SPECIMEN BEING QNS POSSIBLY CONTAMINATED. 02/14/24831 Sameera Guzman Performed By: #### L 501.5200, L500.4050, L501.2300, L501.9520 #### [facility] [address] [place], [address] ALT [Catalytic activity/Vol] 18 U/L Normal 13-56 [facility] Comment on above: Order Comment: REDRA W. PREVIOUS SPECIMEN REJECTED DUE TO SPECIMEN BEING QNS POSSIBLY CONTAMINATED. 02/14/24831 Sameera Guzman Performed By: #### L 501.5200, L500.4050, L501.2300, L501.9520 #### [facility] [facility] [address] [place], [address] AST [Catalytic activity/Vol] 25 U/L Normal 15-37 [facility] Comment on above: Order Comment: REDRA W. PREVIOUS SPECIMEN REJECTED DUE TO SPECIMEN BEING QNS POSSIBLY CONTAMINATED. 02/14/24831 Sameera Guzman Performed By: #### L 501.5200, L500.4050, L501.2300, L501.9520 #### [facility] [address] [place], [address] Bilirubin [Mass/Vol] 0.40 mg/dL Normal 0.20-1.00 [facility] Comment on above: Order Comment: REDRA W. PREVIOUS SPECIMEN REJECTED DUE TO SPECIMEN BEING QNS POSSIBLY CONTAMINATED. 02/14/24 0832 Sameera Guzman Result Comment: For patients on eltrombopag therapy, use of Dimension [place] TBIL is not recommended. Performed By: #### L 501.5200, L500.4050, L501.2300, L501.9520 #### [facility] [address] [place], [address] BUN/CRE 11.9 RATIO Normal 10-20 [facility] Comment on above: Order Comment: REDRA W. PREVIOUS SPECIMEN REJECTED DUE TO SPECIMEN BEING QNS POSSIBLY CONTAMINATED. 02/14/24 0832 Sameera Stock. Performed By: #### L 501.5200, L500.4050, L501.2300, L501.9520 #### [facility] [address] [place], [address] CA,Total 8.5 mg/dL Normal 8.5-10.1 [facility] Comment on above: Order Comment: REDRA W. PREVIOUS SPECIMEN REJECTED DUE TO SPECIMEN BEING QNS POSSIBLY CONTAMINATED. 02/14/24 0832 Sameera Stock. Performed By: #### L 501.5200, L500.4050, L501.2300, L501.9520 #### [facility] [address] [place], [address] Chloride [Moles/Vol] 110 mmol/L High 98-107 [facility] Comment on above: Order Comment: REDRA W. PREVIOUS SPECIMEN REJECTED DUE TO SPECIMEN BEING QNS POSSIBLY CONTAMINATED. 02/14/24 0832 Sameera Stock. Performed By: #### L 501.5200, L500.4050, L501.2300, L501.9520 #### [facility] [address] [place], [address] CO2 [Moles/Vol] 23.0 mmol/L Normal 21.0-32.0 [facility] Comment on above: Order Comment: REDRA W. PREVIOUS SPECIMEN REJECTED DUE TO SPECIMEN BEING QNS POSSIBLY CONTAMINATED. 02/14/24 0832 Sameera Guzman Performed By: #### L 501.5200, L500.4050, L501.2300, L501.9520 #### [facility] [address] [place], [address] Creatinine [Mass/Vol] 3.03 mg/dL High 0.55-1.02 [facility] Comment on above: Order Comment: REDRA W. PREVIOUS SPECIMEN REJECTED DUE TO SPECIMEN BEING QNS POSSIBLY CONTAMINATED. 02/14/24 0832 Sameera Guzman Result Comment: The validity of the calculated GFR GFRAA in patients over 70 years has not been determined. Clinical correlation is essential. Performed By: #### L 501.5200, L500.4050, L501.2300, L501.9520 #### [facility] [address] [place], [address] ECRCL 24.83 ml/min Normal [facility] Comment on above: Order Comment: REDRA W. PREVIOUS SPECIMEN REJECTED DUE TO SPECIMEN BEING QNS POSSIBLY CONTAMINATED. 02/14/2432 Sameera Guzman Performed By: #### L 501.5200, L500.4050, L501.2300, L501.9520 #### [facility] [address] [place], [address] EST GFR - AA 21 mL/min Low >60 [facility] Comment on above: Order Comment: REDRA W. PREVIOUS SPECIMEN REJECTED DUE TO SPECIMEN BEING QNS POSSIBLY CONTAMINATED. 02/14/24 0832 Sameera Guzman Result Comment: Afri can [place] GFR Calc Performed By: #### L 501.5200, L500.4050, L501.2300, L501.9520 #### [facility] [address] [place], [address] GAP 5 Normal 5-15 [facility] Comment on above: Order Comment: REDRA W. PREVIOUS SPECIMEN REJECTED DUE TO SPECIMEN BEING QNS POSSIBLY CONTAMINATED. 02/14/24831 Sameera Guzman Performed By: #### L 501.5200, L500.4050, L501.2300, L501.9520 #### [facility] [address] [place], [address] GFR/1.73 sq M.predicted among non-blacks MDRD (S/P/Bld) [Vol rate/Area] 17 mL/min/{1.73_m2} Low >60 [facility] Comment on above: Order Comment: REDRA W. PREVIOUS SPECIMEN REJECTED DUE TO SPECIMEN BEING QNS POSSIBLY CONTAMINATED. 02/14/24831 Sameera Guzman Result Comment: Non- GFR Calc Performed By: #### L 501.5200, L500.4050, L501.2300, L501.9520 #### [facility] [address] [place], [address] Globulin (S) [Mass/Vol] 3.1 g/dL Normal 2.2-4.2 [facility] Comment on above: Order Comment: REDRA W. PREVIOUS SPECIMEN REJECTED DUE TO SPECIMEN BEING QNS POSSIBLY CONTAMINATED. 02/14/24831 Sameera Guzman Performed By: #### L 501.5200, L500.4050, L501.2300, L501.9520 #### [facility] [address] [place], [address] Glucose [Mass/Vol] 152 mg/dL High 74-106 [facility] Comment on above: Order Comment: REDRA W. PREVIOUS SPECIMEN REJECTED DUE TO SPECIMEN BEING QNS POSSIBLY CONTAMINATED. 02/14/24831 Sameera Guzman Result Comment: Fast ing Glucose result greater than or equal to 126 mg/dL suggests DIABETES MELLITUS per A.D.A. criteria. Performed By: #### L 501.5200, L500.4050, L501.2300, L501.9520 #### [facility] [address] [place], [address] Potassium [Moles/Vol] 4.1 mmol/L Normal 3.5-5.1 [facility] Comment on above: Order Comment: RED W. PREVIOUS SPECIMEN REJECTED DUE TO SPECIMEN BEING QNS POSSIBLY CONTAMINATED. 02/14/24831 Sameera Guzman Performed By: #### L 501.5200, L500.4050, L501.2300, L501.9520 #### [facility] [address] [place], [address] Sodium [Moles/Vol] 138 mmol/L Normal 136-145 [facility] Comment on above: Order Comment: REDRA W. PREVIOUS SPECIMEN REJECTED DUE TO SPECIMEN BEING QNS POSSIBLY CONTAMINATED. 02/14/24831 Sameera Guzman Performed By: #### L 501.5200, L500.4050, L501.2300, L501.9520 #### [facility] [address] [place], [address] T PROT 6.6 g/dL Normal 6.4-8.2 [facility] Comment on above: Order Comment: REDRA W. PREVIOUS SPECIMEN REJECTED DUE TO SPECIMEN BEING QNS POSSIBLY CONTAMINATED. 02/14/24831 Sameera Guzman Performed By: #### L 501.5200, L500.4050, L501.2300, L501.9520 #### [facility] [address] [place], [address] Urea nitrogen [Mass/Vol] 36 mg/dL High 7-18 [facility] Comment on above: Order Comment: REDRA W. PREVIOUS SPECIMEN REJECTED DUE TO SPECIMEN BEING QNS POSSIBLY CONTAMINATED. 02/14/24831 Sameera Guzman Performed By: #### L 501.5200, L500.4050, L501.2300, L501.9520 #### [facility] [address] [place], [address] ALB Normal 3.2-5.0 [facility] Comment on above: Result Comment: This specimen has been REJECTED due to Laboratory criteria: Quanity Not Sufficient possibly contaminated. PHLEB STAFF has been notified of need of recollection. 02/14/2430 Sameera R Stoner Performed By: #### L 100.0100, L500.4050 ####[facility] [address] [place], [address] ALK P Normal 45-117 [facility] Comment on above: Result Comment: This specimen has been REJECTED due to Laboratory criteria: Quanity Not Sufficient possibly contaminated. PHLEB STAFF has been notified of need of recollection. 02/14/24829 Sameera R Stoner Performed By: #### L 100.0100, L500.4050 ####[facility] [address] [place], [address] ALT Normal 13-56 [facility] Comment on above: Result Comment: This specimen has been REJECTED due to Laboratory criteria: Quanity Not Sufficient possibly contaminated. PHLEB STAFF has been notified of need of recollection. 02/14/24829 Sameera R Stoner Performed By: #### L 100.0100, L500.4050 ####[facility] [address] [place], [address] AST Normal 15-37 [facility] Comment on above: Result Comment: This specimen has been REJECTED due to Laboratory criteria: Quanity Not Sufficient possibly contaminated. PHLEB STAFF has been notified of need of recollection. 02/14/24829 Sameera R Stoner Performed By: #### L 100.0100, L500.4050 ####[facility] [address] [place], [address] BUN Normal 7-18 [facility] Comment on above: Result Comment: This specimen has been REJECTED due to Laboratory criteria: Quanity Not Sufficient possibly contaminated. PHLEB STAFF has been notified of need of recollection. 02/14/24829 Sameera R Stoner Performed By: #### L 100.0100, L500.4050 ####[facility] [address] [place], [address] BUN/CRE Normal 10-20 [facility] Comment on above: Result Comment: This specimen has been REJECTED due to Laboratory criteria: Quanity Not Sufficient possibly contaminated. PHLEB STAFF has been notified of need of recollection. 02/14/24829 Sameera R Stoner Performed By: #### L 100.0100, L500.4050 ####[facility] [address] [place], [address] CA,Total Normal 8.5-10.1 [facility] Comment on above: Result Comment: This specimen has been REJECTED due to Laboratory criteria: Quanity Not Sufficient possibly contaminated. PHLEB STAFF has been notified of need of recollection. 02/14/24829 Sameera R Stoner Performed By: #### L 100.0100, L500.4050 ####[facility] [address] [place], [address] CL Normal 98-107 [facility] Comment on above: Result Comment: This specimen has been REJECTED due to Laboratory criteria: Quanity Not Sufficient possibly contaminated. PHLEB STAFF has been notified of need of recollection. 02/14/24829 Sameera R Stoner Performed By: #### L 100.0100, L500.4050 ####[facility] [address] [place], [address] CO2 Normal 21.0-32.0 [facility] Comment on above: Result Comment: This specimen has been REJECTED due to Laboratory criteria: Quanity Not Sufficient possibly contaminated. PHLEB STAFF has been notified of need of recollection. 02/14/24829 Sameera R Stoner Performed By: #### L 100.0100, L500.4050 ####[facility] [address] [place], [address] CREAT,SERUM Normal 0.55-1.02 [facility] Comment on above: Result Comment: This specimen has been REJECTED due to Laboratory criteria: Quanity Not Sufficient possibly contaminated. PHLEB STAFF has been notified of need of recollection. 02/14/24829 Sameera R Stoner Performed By: #### L 100.0100, L500.4050 ####[facility] [address] [place], [address] EST GFR Normal >60 [facility] Comment on above: Result Comment: This specimen has been REJECTED due to Laboratory criteria: Quanity Not Sufficient possibly contaminated. PHLEB STAFF has been notified of need of recollection. 02/14/24829 Sameera R Stoner Performed By: #### L 100.0100, L500.4050 ####[facility] [address] [place], [address] EST GFR - AA Normal >60 [facility] Comment on above: Result Comment: This specimen has been REJECTED due to Laboratory criteria: Quanity Not Sufficient possibly contaminated. PHLEB STAFF has been notified of need of recollection. 02/14/24829 Sameera R Stoner Performed By: #### L 100.0100, L500.4050 ####[facility] [address] [place], [address] GAP Normal 5-15 [facility] Comment on above: Result Comment: This specimen has been REJECTED due to Laboratory criteria: Quanity Not Sufficient possibly contaminated. PHLEB STAFF has been notified of need of recollection. 02/14/24829 Sameera R Stoner Performed By: #### L 100.0100, L500.4050 ####[facility] [address] [place], [address] GLU Normal 74-106 [facility] Comment on above: Result Comment: This specimen has been REJECTED due to Laboratory criteria: Quanity Not Sufficient possibly contaminated. PHLEB STAFF has been notified of need of recollection. 02/14/24829 Sameera R Stoner Performed By: #### L 100.0100, L500.4050 ####[facility] [address] [place], [address] Potassium Normal 3.5-5.1 [facility] Comment on above: Result Comment: This specimen has been REJECTED due to Laboratory criteria: Quanity Not Sufficient possibly contaminated. PHLEB STAFF has been notified of need of recollection. 02/14/24829 Sameera Kirkpatrick Stoner Performed By: #### L 100.0100, L500.4050 ####[facility] [address] [place], [address] T BILI Normal 0.20-1.00 [facility] Comment on above: Result Comment: This specimen has been REJECTED due to Laboratory criteria: Quanity Not Sufficient possibly contaminated. PHLEB STAFF has been notified of need of recollection. 02/14/24829 Sameera R Stoner Performed By: #### L 100.0100, L500.4050 ####[facility] [address] [place], [address] T PROT Normal 6.4-8.2 [facility] Comment on above: Result Comment: This specimen has been REJECTED due to Laboratory criteria: Quanity Not Sufficient possibly contaminated. PHLEB STAFF has been notified of need of recollection. 02/14/24829 Sameera Kirkpatrick Stoner Performed By: #### L 100.0100, L500.4050 ####[facility] [address] [place], [address] Comprehensive Metabolic Profil Normal 136-145 [facility] Comment on above: Result Comment: This specimen has been REJECTED due to Laboratory criteria: Quanity Not Sufficient possibly contaminated. PHLEB STAFF has been notified of need of recollection. 02/14/24829 Sameera Kirkpatrick Stoner Performed By: #### L 100.0100, L500.4050 ####[facility] [address] [place], [address] Albumin [Mass/Vol] 4.0 g/dL Normal 3.2-5.0 [facility] Comment on above: Performed By: #### L 501.2450, L500.4050, L100.0100 ####[facility] [address] [place], [address] Albumin/Globulin [Mass ratio] 1.2 {ratio} Normal 0.9-2.4 [facility] Comment on above: Performed By: #### L 501.2450, L500.4050, L100.0100 ####[facility] [address] [place], [address] ALK P 101 U/L Normal 45-117 [facility] Comment on above: Performed By: #### L 501.2450, L500.4050, L100.0100 ####[facility] [address] [place], [address] ALT [Catalytic activity/Vol] 19 U/L Normal 13-56 [facility] Comment on above: Performed By: #### L 501.2450, L500.4050, L100.0100 ####[facility] [address], [address] AST [Catalytic activity/Vol] 22 U/L Normal 15-37 [facility] Comment on above: Performed By: #### L 501.2450, L500.4050, L100.0100 ####[facility] [address] [place], [address] Bilirubin [Mass/Vol] 0.40 mg/dL Normal 0.20-1.00 [facility] Comment on above: Result Comment: For patients on eltrombopag therapy, use of Dimension [place] TBIL is not recommended. Performed By: #### L 501.2450, L500.4050, L100.0100 ####[facility] [address] [place], [address] BUN/CRE 12.3 RATIO Normal 10-20 [facility] Comment on above: Performed By: #### L 501.2450, L500.4050, L100.0100 ####[facility] [address] [place], [address] CA,Total 9.5 mg/dL Normal 8.5-10.1 [facility] Comment on above: Performed By: #### L 501.2450, L500.4050, L100.0100 ####[facility] [address] [place], [address] Chloride [Moles/Vol] 103 mmol/L Normal 98-107 [facility] Comment on above: Performed By: #### L 501.2450, L500.4050, L100.0100 ####[facility] [address] [place], [address] CO2 [Moles/Vol] 30.0 mmol/L Normal 21.0-32.0 [facility] Comment on above: Performed By: #### L 501.2450, L500.4050, L100.0100 ####[facility] [address] [place], [address] Creatinine [Mass/Vol] 2.85 mg/dL High 0.55-1.02 [facility] Comment on above: Result Comment: The validity of the calculated GFR GFRAA in patients over 70 years has not been determined. Clinical correlation is essential. Performed By: #### L 501.2450, L500.4050, L100.0100 ####[facility] [address] [place], [address] ECRCL 25.87 ml/min Normal [facility] Comment on above: Performed By: #### L 501.2450, L500.4050, L100.0100 ####[facility] [address] [place], [address] EST GFR - AA 23 mL/min Low >60 [facility] Comment on above: Result Comment: Afri can [place] GFR Calc Performed By: #### L 501.2450, L500.4050, L100.0100 ####[facility] [address] [place], [address] GAP 6 Normal 5-15 [facility] Comment on above: Performed By: #### L 501.2450, L500.4050, L100.0100 ####[facility] [address] [place], [address] GFR/1.73 sq M.predicted among non-blacks MDRD (S/P/Bld) [Vol rate/Area] 19 mL/min/{1.73_m2} Low >60 [facility] Comment on above: Result Comment: Non- GFR Calc Performed By: #### L 501.2450, L500.4050, L100.0100 ####[facility] [address] [place], [address] Globulin (S) [Mass/Vol] 3.4 g/dL Normal 2.2-4.2 [facility] Comment on above: Performed By: #### L 501.2450, L500.4050, L100.0100 ####[facility] [address] [place], [address] Glucose [Mass/Vol] 151 mg/dL High 74-106 [facility] Comment on above: Result Comment: Fast ing Glucose result greater than or equal to 126 mg/dL suggests DIABETES MELLITUS per A.D.A. criteria. Performed By: #### L 501.2450, L500.4050, L100.0100 ####[facility] [address] [place], [address] Potassium [Moles/Vol] 4.6 mmol/L Normal 3.5-5.1 [facility] Comment on above: Performed By: #### L 501.2450, L500.4050, L100.0100 ####[facility] [address] [place], [address] Sodium [Moles/Vol] 139 mmol/L Normal 136-145 [facility] Comment on above: Performed By: #### L 501.2450, L500.4050, L100.0100 ####[facility] [address] [place], [address] T PROT 7.4 g/dL Normal 6.4-8.2 [facility] Comment on above: Performed By: #### L 501.2450, L500.4050, L100.0100 ####[facility] [address] [place], [address] Urea nitrogen [Mass/Vol] 35 mg/dL High 7-18 [facility] Comment on above: Performed By: #### L 501.2450, L500.4050, L100.0100 ####[facility] [address] [place], [address] Consultation - Nephrologyon 02-14-2024 Consultation - Nephrology [facility] Medical Records Department [address] [place] [address] Consultation - Nephrology 02/14/24 1804 MR#: [id number] Acct: [id number] Name: TERESA CASH Rep #: [id number] : 1975 48 From: Criselda South MD PCP: GALILEA WHITAKER Status:ADM IN Location: [place] [address] Assessment Plan Assessment/Plan (1) GOPAL (acute kidney [...] wane. The patient has been evaluated by editor map in [place], [place], where she used to live. She [...] frothing until (more content not included)... Normal [facility] Creatinine, Urineon 02-13-19 25 URINE CREAT 51.10 mg/dL Normal NO RANGE EST. [facility] Comment on above: Performed By: #### L 501.9985 #### [facility] [address] [facility] [place], [place], [address] DNA double strand Ab Qn (S)O rdered By: Susy Carranza on 02-14-2024 Anti-Double Strand DNA Antibody <1 IU/mL 0-9 [facility] Comment on above: Negative <5 Equivoca l 5 - 9 Positive >9Previous reported result: TNP IU/mLEdited by: ADRIANA on 02/16/24:1407 AMENDED REPORT 02/16/24 1407 dsDNA AB previously reported as: Test not performed Emergency Department Summary on 02-14-2024 Emergency Department Summary [facility] Medical Records Department [address] [place] [address] Emergency Department Summary 02/14/24 MR#: [id number] Acct: [id number] Name: TERESA CASH Rep #: [id number] : 1975 48 From: Bonnie Weber DO PCP: GALILEA WHITAKER Status:ADM IN Location: [facility] [id number] HPI HPI - GI History of Present [...] other complaints or concerns at this time. 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 Normal [facility] Erythrocyte Sed Rateon 02-13 SED RATE 8 mm/hr Normal 0-30 [facility] Comment on above: Performed By: #### L 501.4020 #### [facility] [address] [facility] [place], [address] Erythrocyte sedimentation ra teOrdered By: Susy Carranza on 02-14-2024 ESR (Bld) [Velocity] 8 mm/h 0-30 [facility] H AND P Exam - Hospitaliston 02-14-2024 H&P Exam - Hospitalist [facility] Medical Records Department [address] [place] [address] H P Exam - Hospitalist 02/14/24 0403 MR#: [id number] Acct: [id number] Name: TERESA CASH Rep #: [id number] : 1975 48 From: Susy Carranza DO PCP: GALILEA WHITAKER Status:ADM IN Location: [facility] [id number] HPI - General General Date of Admission: 02/14/24 Date of Service: 02/14/24 Chief Complaint: Flank pain HPI Narrative TERESA CASH, is a 48 F who presented to the emergency department at [facility] on 02/14/2024 with a chief complaint of [...] renal dysfunction request for admission was made. [facility] Medical History Hair loss Fatigue Hot [...] (Reviewed 0 (more content not included)... Normal [facility] Hemoglobin A1con 02-14-2024 HbA1c (Bld) [Mass fraction] 5.2 % Normal 3.8-5.6 [facility] Comment on above: Result Comment: Norm al < 5.7 % Prediabetic 5.7 - 6.4 % Diabetic >or= 6.5 % Please note range changes. Performed By: #### L 260.5522 #### [facility] [address] [place], [place], [address] Hemoglobin A1c percentageOrd ered By: Susy Carranza on 02-14-2024 HbA1c (Bld) [Mass fraction] 5.2 % 3.8-5.6 [facility] Comment on above: Normal < 5.7 % Predi abetic 5.7 - 6.4 % Diabetic >or= 6.5 % Please note range changes. Kathy-1 antibody assayOrdered B y: Susy Carranza on 02-14-2024 KATHY-1 Antibody <0.2 AI 0.0-0.9 [facility] Comment on above: Previous reported re sult: TNP AIEdited by: ADRIANA on 02/16/24:1407 AMENDED REPORT 02/16/24 1407 ANTI-KATHY previously reported as: Test not performed Kidney and Bladderon 025 Kidney and Bladder [facility] Imaging Services [address] [place] [address] Kidney and Bladder MR#: [id number] Acct: [id number] Name: TERESA CASH Rep #: [id number] : 1975 F 48 From: Bebo Ng DO PCP: GALILEA WHITAKER Status: ADM IN Study: Kidney and Bladder Date of Exam: 02/14/24 Exam# [id number] Ordering Dr: Susy Carranza DO [id number] INDICATION: GOPAL EXAMINATION: Ultrasound US Kidney(s) complete [...] Signed: Bebo Ng DO at 16:13 EST Reading Location ID and State: [facility] / [place] Tel [phone], Service support , CC: GALILEA WHITAKER; Dr. Susy Carranza DO Grinding Room Inspector: Signed Normal [facility] Laboratory - Chemistry and C hemistry - challengeOrdered By: Ilya Peña on 02-14-2024 AST [Catalytic activity/Vol] 25 U/L 15-37 [facility] Lipaseon 02-14-2024 Lipase [Catalytic activity/Vol] 58 U/L Normal 13-75 [facility] Comment on above: Result Comment: Plea se note: LIPASE revised reference range effective 22. New Lipase methodology. Expected to produce lower values than the previous assay method. NEW Reference Range: 13 - 75 U/L Performed By: #### L 501.2450, L500.4050, L100.0100 ####[facility] [address] [place], [place], [address] Lipase measurementOrdered By : Bonnie Weber on 02-14-2024 Lipase [Catalytic activity/Vol] 58 U/L 13-75 [facility] Comment on above: Please note:LIPASE r evised reference range effective 22. New Lipase methodology. Expected to produce lower values than the previous assay method. NEW Reference Range: 13 - 75 U/L Magnesiumon 02-14-2024 Magnesium [Mass/Vol] 2.3 mg/dL Normal 1.6-2.6 [facility] Comment on above: Order Comment: CURRY Bruno. PREVIOUS SPECIMEN REJECTED DUE TO SPECIMEN BEING QNS POSSIBLY CONTAMINATED. 02/14/24 0832 Sameera Stock. Performed By: #### L 501.5200, L500.4050, L501.2300, L501.9520 #### [facility] Laboratory [address] [place], [place], [address] Magnesium measurementOrdered By: Ilya Peña on 02-14-2024 Magnesium [Mass/Vol] 2.3 mg/dL 1.6-2.6 [facility] Microalb:Creat Ratio,Random URon 02-14-2024 Creatinine [Mass/Vol] 51.10 mg/dL Normal NO RAN GE EST. [facility] Comment on above: Performed By: #### L 501.4020 #### [facility] Laboratory [address] [place], [address] MALB:CRE 868.9 mg/g CRE High <30 mg/g CRE [facility] Comment on above: Performed By: #### L 501.4020 #### [facility] Laboratory [address] [place], [place], [id number] MICROALBUMIN,UR 444.0 mg/L Normal NO RANGE EST. [facility] Comment on above: Performed By: #### L 501.4020 #### [facility] Laboratory [address] [place], [place], [address] Neutrophil cytoplasmic Ab.cl assic Qn (S)Ordered By: Susy Carranza on 02-14-2024 Cytoplasmic ANCA (c-ANCA) Antibody <1:20 titer Neg:<1:20 [facility] Neutrophil cytoplasmic Ab.pe rinuclear IF (S) [Titer]Ordered By: Susy Carranza on 02-14-2024 Perinuclear ANCA (p-ANCA) Antibody <1:20 titer Neg:<1:20 [facility] Comment on above: The presence of posi tive fluorescence exhibiting P-ANCA orC-ANCA patterns alone is not specific for the diagnosis ofWegener's Granulomatosis (WG) or microscopic polyangiitis.Decisions about treatment should not be based solely onANCA IFA results. The International ANCA Group Consensusrecommends follow up testing of positive sera with both NH-3 and MPO-ANCA enzyme immunoassays. As many as 5% serumsamples are positive only by EIA. Ref. AM J Clin Htolzp2854;111:507-513. Phosphoruson 02-14-2024 Phosphate [Mass/Vol] 4.2 mg/dL Normal 2.5-4.9 [facility] Comment on above: Order Comment: CURRY W. PREVIOUS SPECIMEN REJECTED DUE TO SPECIMEN BEING QNS POSSIBLY CONTAMINATED. 02/14/24 0832 Sameera Stock. Performed By: #### L 501.5200, L500.4050, L501.2300, L501.9520 #### [facility] [address] [place], [address] Phosphorus measurementOrdere d By: Ilya Peña on 02-14-2024 Phosphorus Level 4.2 mg/dL 2.5-4.9 [facility] Protein+Creatinine Ratio,Uri neon 02-14-2024 PROT:CRE RATIO 7035 mg/g CRE High 0-200 [facility] Comment on above: Performed By: #### L 501.9985 #### [facility] Laboratory [address] [place], [address] Protein (U) [Mass/Vol] 305.3 mg/dL High <11.9 [facility] Comment on above: Performed By: #### L 501.9985 #### [facility] [address] [place], [address] UR CREAT 43.40 mg/dL Normal NO RANGE EST. [facility] Comment on above: Performed By: #### L 501.9985 #### [facility] [address] [place], [address] Protein, Urine (Random)on Protein (U) [Mass/Vol] 61.6 mg/dL High <11.9 [facility] Comment on above: Performed By: #### L 501.4020 #### [facility] [address] [place], [address] PHARMACIST HELPER abOrdered By: Susy Moreno on 02-14-2024 PHARMACIST HELPER Antibody <0.2 AI 0.0-0.9 [facility] Comment on above: Previous reported re sult: TNP AIEdited by: ADRIANA on 02/16/24:1407 AMENDED REPORT 02/16/24 140 PHARMACIST HELPER Ab previously reported as: Test not performed Random urine microalbumin me asurementOrdered By: Criselda South on 02-14-2024 Urine Random Microalbumin 444.0 mg/L NO RANGE EST. [facility] SCL-70 extractable nuclear A b Qn (S)Ordered By: Susy Carranza on 02-14-2024 Scl-70 (Scleroderma) Antibody <0.2 AI 0.0-0.9 [facility] Comment on above: Previous reported re sult: TNP AIEdited by: ADRIANA on 02/16/24:1407 AMENDED REPORT 02/16/24 140 ANTISCLER previously reported as: Test not performed SS-A IgG antibody assayOrder ed By: Susy Carranza on 02-14-2024 SS-A/Ro IgG Antibody < 0.2 AI 0.0-0.9 [facility] Comment on above: Previous reported re sult: TNP AIEdited by: ADRIANA on 02/16/24:1407 AMENDED REPORT 02/16/24 140 Anti-SS-A previously reported as: Test not performed SS-B IgG antibody assayOrder ed By: Susy Carranza on 02-14-2024 SS-B/La IgG Antibody < 0.2 AI 0.0-0.9 [facility] Comment on above: Previous reported re sult: TNP AIEdited by: ADRIANA on 02/16/24:1407 AMENDED REPORT 02/16/24 140 Anti-SS-B previously reported as: Test not performed Serum globulin measurementOr dered By: Ilya Peña on 02-14-2024 Globulin (S) [Mass/Vol] 3.1 g/dL 2.2-4.2 [facility] Serum or plasma alanine torres otransferase (ALT) measurementOrdered By: Ilya Peña on 02-14-2024 ALT [Catalytic activity/Vol] 18 U/L 13-56 [facility] Serum or plasma albumin zaire urement (mass/volume)Ordered By: Ilya Peña on 02-14-2024 Albumin [Mass/Vol] 3.5 g/dL 3.2-5.0 [facility] Serum or plasma alkaline charissa sphatase measurementOrdered By: Ilya Peña on 02-14-2024 ALP [Catalytic activity/Vol] 85 U/L 45-117 [facility] Hendrix antibody assayOrdered By: Susy Carranza on 02-14-2024 SM Antibody <0.2 AI 0.0-0.9 [facility] Comment on above: Previous reported re sult: TNP AIEdited by: ADRIANA on 02/16/24:1407 AMENDED REPORT 02/16/24 140 JORGE Ab previously reported as: Test not performed Sodium urOrdered By: Susy Carranza on 02-14-2024 Sodium (U) [Moles/Vol] 59 mmol/L Not Establ. [facility] TSH QnOrdered By: Ilya wu on 02-14-2024 Thyroid Stimulating Hormone (TSH) 0.888 uIU/mL 0.358-3.740 [facility] Thyroid Stim Hormone (TSH)on 02-14-2024 TSH 0.888 uIU/mL Normal 0.358-3.740 [facility] Comment on above: Order Comment: CURRY Bruno. PREVIOUS SPECIMEN REJECTED DUE TO SPECIMEN BEING QNS POSSIBLY CONTAMINATED. 02/14/24 0832 Sameera Guzman Performed By: #### L 501.5200, L500.4050, L501.2300, L501.9520 #### [facility] Laboratory [address] [place], [address] Total hemolytic (CH50) compl ement assayOrdered By: Susy Carranza on 02-14-2024 Total Complement (CH50) 38 U/mL Low >41 [facility] Comment on above: Age Male Female 1 - 30 days Not Estab. Not Estab. 31 days - 6 months >32 >20 7 months - 17 years >39 >39 >17 years >41 >41 NOTE: The adult (>17 years) reference interval range is used to flag abnormals on this report. If the patient is 17 years old or younger, use the table above to determine out of range values.Performed at: - [facility] [id number] Director: Mitchell Briggs PhD, Phone: [phone] Total proteinOrdered By: North Peña on 02-14-2024 Protein [Mass/Vol] 6.6 g/dL 6.4-8.2 [facility] Urinalysis, Completeon 02-13 EPI,SQUAMOUS 0-5 SEEN Normal 5-10 [facility] Comment on above: Order Comment: 'TROP ' Serial specimen #1, #2 or #3: 1 1 Performed By: #### L 501.4020 #### [facility] Laboratory [address] [place], [address] RBC 0-5 SEEN Normal 0-5 [facility] Comment on above: Order Comment: 'TROP ' Serial specimen #1, #2 or #3: 1 1 Performed By: #### L 501.4020 #### [facility] [address] [place], [address] WBC 0-5 SEEN Normal 0-5 [facility] Comment on above: Order Comment: 'TROP ' Serial specimen #1, #2 or #3: 1 1 Performed By: #### L 501.4020 #### [facility] [address] [place], [address] BACTERIA 0 SEEN Normal None Seen [facility] Comment on above: Order Comment: 'TROP ' Serial specimen #1, #2 or #3: 1 1 Performed By: #### L 501.4020 #### [facility] [address] [place], [address] Mucus Ql (Urine sed) 0 SEEN Normal [facility] Comment on above: Order Comment: 'TROP ' Serial specimen #1, #2 or #3: 1 1 Performed By: #### L 501.4020 #### [facility] [address] [place], [address] BACTERIA 0 SEEN Normal None Seen [facility] Comment on above: Order Comment: 'TROP ' Serial specimen #1, #2 or #3: 1 1 Performed By: #### L 501.4020 #### [facility] [address] [place], [address] EPI,SQUAMOUS 0 SEEN Normal 5-10 [facility] Comment on above: Order Comment: 'TROP ' Serial specimen #1, #2 or #3: 1 1 Performed By: #### L 501.4020 #### [facility] [address] [place], [address] Mucus Ql (Urine sed) 0 SEEN Normal [facility] Comment on above: Order Comment: 'TROP ' Serial specimen #1, #2 or #3: 1 1 Performed By: #### L 501.4020 #### [facility] [address] [place], [address] RBC 0 SEEN Normal 0-5 [facility] Comment on above: Order Comment: 'TROP ' Serial specimen #1, #2 or #3: 1 1 Performed By: #### L 501.4020 #### [facility] [address] [place], [address] WBC 0 SEEN Normal 0-5 [facility] Comment on above: Order Comment: 'TROP ' Serial specimen #1, #2 or #3: 1 1 Performed By: #### L 501.4020 #### [facility] [address] [place], [address] Urine Sodiumon 02-14-2024 Sodium (U) [Moles/Vol] 59 mmol/L Normal Not Establ. [facility] Comment on above: Performed By: #### L 501.9985 #### [facility] [address] [place], [address] Urine albumin/creatinine rat io for detection of microalbuminuriaOrdered By: Criselda South on 02-14-2024 Urine Microalbumin/Creatinine Ratio 868.9 mg/g CRE High <30 [facility] Hot Dog Vendor Office Visit Reporton 01-27-2024 Hot Dog Vendor Office Visit Report 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 Normal [facility] SCRN MAMM (CAD)W/ALLI BILATo n 01-27-2024 SCRN MAMM (CAD)W/ALLI BILAT [facility] Imaging Services [address] [place] [id number] SCRN MAMM (CAD)W/ALLI BILAT MR#: [id number] Acct: [id number] Name: TERESA CASH Rep #: [id number] : 1975 F 48 From: Ash hensley MD PCP: Care Physician,No Primary Status: REG CLI Study: SCRN MAMM (CAD)W/ALLI BILAT Date of Exam: 01/10 09/02 Exam# [id number] Ordering Dr: Mable Mckeon DEVELOPMENTAL BEHAVIORAL PHYSICIAN DEVELOPMENTAL BEHAVIORAL PHYSICIAN -C [id number] MAMMOGRAPHY - BILATERAL SCREENING REASON FOR EXAM: [...] delay biopsy of a clinically suspicious abnormality. [id number] Electronically Signed: Ash Martínez MD at 9:54 EST Reading Location ID and State: [address] [place] [address] , Service support , CC: LAMAR Mckeon; No Primary Care Physician Grinding Room Inspector: Signed Normal [facility] CBC WITH AUTO DIFFERENTIALon 11-21-2023 AUTO NRBC 0.0 % Normal [facility] Comment on above: Performed By: #### L [id number] #### [facility] [address] [place] [address] Ilya Travis M.D. [id number] AUTO NRBC ABS COUNT 0.00 K/mcL Normal 0.00-0.00 [facility] Comment on above: Performed By: #### L [id number] #### [facility] [address] [id number] Ilya Travis M.D. [id number] BASOPHILS ABSOLUTE COUNT 0.04 K/mcL Normal 0.00-0.30 [facility] Comment on above: Performed By: #### L [id number] #### [facility] [address] [place] [address] Ilya Travis M.D. [id number] Basophils/100 WBC (Bld) 0.7 % Normal [facility] Comment on above: Performed By: #### L [id number] #### [facility] [address] [place] [address] Ilya Travis M.D. [id number] Eosinophils (Bld) [#/Vol] 0.17 10*3/uL Normal 0.00-0.5 0 [facility] Comment on above: Performed By: #### Shubham [id number] #### [facility] [address] [place] [address] Ilya Travis M.D. [id number] Eosinophils/100 WBC (Bld) 2.9 % Normal [facility] Comment on above: Performed By: #### Shubham [id number] #### [facility] [address] [place] [address] Ilya Travis M.D. [id number] Erythrocyte distribution width (RBC) [Ratio] 12.3 % Normal 11.6-14.8 [facility] Comment on above: Performed By: #### L [id number] #### [facility] [address] [place], [place] [address] Ilya Travis M.D. [id number] Hematocrit (Bld) [Volume fraction] 40.5 % Normal 36.0-46.0 [facility] Comment on above: Performed By: #### Shubham [id number] #### [facility] [address] [place], [place] [address]Effie Travis M.D. [id number] Hemoglobin (Bld) [Mass/Vol] 13.3 g/dL Normal 12.0-16.0 [facility] Comment on above: Performed By: #### Shubham [id number] #### [facility] [address] [place], [place] [address] Ilya Travis M.D. [id number] IG ABSOLUTE 0.01 K/mcL Normal 0.00-0.30 [facility] Comment on above: Performed By: #### L [id number] #### [facility] [address] [place] [address] Ilya Travis M.D. [id number] IG PERCENT 0.20 % Normal [facility] Comment on above: Result Comment: The IG parameter is the percentage of metamyelocytes, myelocytes and promyelocytes. An immature granulocyte count (IG) of 1% or more suggests the possibility of infection, an IG count of 3% is very likely related to an infection. Performed By: #### Shubham [id number] #### [facility] [address] [place] [address] Ilya Travis M.D. [id number] Lymphocytes (Bld) [#/Vol] 1.95 10*3/uL Normal 0.90-4.0 0 [facility] Comment on above: Performed By: #### L [id number] #### [facility] [address] [place], [place] [address] Ilya Travis M.D. [id number] Lymphocytes/100 WBC (Bld) 33.6 % Normal [facility] Comment on above: Performed By: #### L [id number] #### [facility] [address] [place], [place] [address] Ilya Travis M.D. [id number] MCH (RBC) [Entitic mass] 32.5 pg Normal 26.0-34.0 [facility] Comment on above: Performed By: #### L [id number] #### [facility] [address] [place] [address] Ilya Travis M.D. [id number] MCV (RBC) [Entitic vol] 99.0 fL Normal 80.0-100.0 [facility] Comment on above: Performed By: #### Shubham [id number] #### [facility] [address] [place] [address] Ilya Travis M.D. [id number] MEAN CORPUSCULAR HEMOGLOBIN CONC 32.8 g/dL Normal 31.0-37.0 [facility] Comment on above: Performed By: #### L [id number] #### [facility] [address] [place] [address] Ilya Travis M.D. [id number] Monocytes (Bld) [#/Vol] 0.63 10*3/uL Normal 0.30-0.90 [facility] Comment on above: Performed By: #### L [id number] #### [facility] [address] [place] [address] Ilya Travis M.D. [id number] Monocytes/100 WBC (Bld) 10.8 % Normal [facility] Comment on above: Performed By: #### L [id number] #### [facility] [address] [place], [place] [address]Effie Travis M.D. [id number] NEUTROPHILS ABSOLUTE COUNT 3.01 K/mcL Normal 1.70-7.00 [facility] Comment on above: Performed By: #### L [id number] #### [facility] [address] [place] [address] Ilya Travis M.D. [id number] Neutrophils/100 WBC (Bld) 51.8 % Normal [facility] Comment on above: Performed By: #### L [id number] #### [facility] [address] [place] [address] Ilya Travis M.D. [id number] Platelet mean volume (Bld) [Entitic vol] 9.7 fL Normal 9.4-12.4 [facility] Comment on above: Performed By: #### L [id number] #### [facility] [address] [place], [place] [address] Ilya Travis M.D. [id number] Platelets (Bld) [#/Vol] 365 10*3/uL Normal 150-400 [facility] Comment on above: Performed By: #### L [id number] #### [facility] [address] [place], [place] [address] Ilya Travis M.D. [id number] RBC (Bld) [#/Vol] 4.09 10*6/uL Normal 4.00-5.20 [facility] Comment on above: Performed By: #### L [id number] #### [facility] [address] [place], [place] [address] Ilya Travis M.D. [id number] WBC (Bld) [#/Vol] 5.81 10*3/uL Normal 4.50-11.00 [facility] Comment on above: Performed By: #### L [id number] #### [facility] [address] [place], [place] [address] Ilya Travis M.D. [id number] COMPREHENSIVE METABOLIC PANE [facility] 11-21-2023 Albumin [Mass/Vol] 4.7 g/dL Normal 3.2-5.2 [facility] Comment on above: Order Comment: [facility] has implemented the eGFR calculation approach that does not have a coefficient for race that conforms to the NKF-ASN Task Force Recommendations. Performed By: #### [id number] #### [facility] [address] [place], [place] [address] Ilya Travis M.D. [id number] ALP [Catalytic activity/Vol] 80 U/L Normal 40-150 [facility] Comment on above: Order Comment: [facility] has implemented the eGFR calculation approach that does not have a coefficient for race that conforms to the NKF-ASN Task Force Recommendations. Performed By: #### 4 [id number] #### [facility] [address] [place], [place] [address] Ilya Travis M.D. [id number] ALT [Catalytic activity/Vol] 19 U/L Normal 0-35 U/L [facility] Comment on above: Order Comment: [facility] has implemented the eGFR calculation approach that does not have a coefficient for race that conforms to the NKF-ASN Task Force Recommendations. Performed By: #### [id number] #### [facility] [address] [place], [place] [address] Ilya Travis M.D. [id number] Anion gap [Moles/Vol] 16 mmol/L Normal 10-20 [facility] Comment on above: Order Comment: [facility] has implemented the eGFR calculation approach that does not have a coefficient for race that conforms to the NKF-ASN Task Force Recommendations. Performed By: #### 4 [id number] #### [facility] [address] [place], [place] [address] Ilya Travis M.D. [id number] AST [Catalytic activity/Vol] 23 U/L Normal 0-35 U/L [facility] Comment on above: Order Comment: [facility] has implemented the eGFR calculation approach that does not have a coefficient for race that conforms to the NKF-ASN Task Force Recommendations. Performed By: #### 4 [id number] #### [facility] [address] [place], [place] [address] Ilya Travis M.D. [id number] Bilirubin [Mass/Vol] 0.3 mg/dL Normal 0.0-1.3 [facility] Comment on above: Order Comment: [facility] has implemented the eGFR calculation approach that does not have a coefficient for race that conforms to the NKF-ASN Task Force Recommendations. Performed By: #### 4 [id number] #### [facility] [address] [place] [address] Ilya Travis M.D. [id number] Calcium [Mass/Vol] 9.6 mg/dL Normal 8.4-10.2 [facility] Comment on above: Order Comment: [facility] has implemented the eGFR calculation approach that does not have a coefficient for race that conforms to the NKF-ASN Task Force Recommendations. Performed By: #### 4 [id number] #### [facility] [address] [place] [address] Ilya Travis M.D. [id number] Chloride [Moles/Vol] 100 mmol/L Normal 98-108 [facility] Comment on above: Order Comment: [facility] has implemented the eGFR calculation approach that does not have a coefficient for race that conforms to the NKF-ASN Task Force Recommendations. Performed By: #### 4 [id number] #### [facility] [address] [place] [address] Ilya Travis M.D. [id number] Creatinine [Mass/Vol] 0.76 mg/dL Normal 0.40-1.10 [facility] Comment on above: Order Comment: [facility] has implemented the eGFR calculation approach that does not have a coefficient for race that conforms to the NKF-ASN Task Force Recommendations. Performed By: #### 4 [id number] #### [facility] [address] [place] [address] Ilya Travis M.D. [id number] EGFR 96 mL/min/1.73 m2 Normal >=60 [facility] Comment on above: Order Comment: [facility] [place] [facility] implemented the eGFR calculation approach that does not have a coefficient for race that conforms to the NKF-ASN Task Force Recommendations. Result Comment: Ivet mated GFR was calculated using the 2020 CKD-EPI creatinine equation. Performed By: #### [id number] #### [facility] [address] [place] [phone] [phone] Ilya Travis M.D. [id number] Glucose [Mass/Vol] 74 mg/dL Normal 65-99 [facility] Comment on above: Order Comment: [facility] has implemented the eGFR calculation approach that does not have a coefficient for race that conforms to the NKF-ASN Task Force Recommendations. Performed By: #### [id number] #### [facility] [address] [place] [address] [phone] Ilya Travis M.D. [id number] HCO3 (Bld) [Moles/Vol] 30 mmol/L Normal 21-32 [facility] Comment on above: Order Comment: [facility] has implemented the eGFR calculation approach that does not have a coefficient for race that conforms to the NKF-ASN Task Force Recommendations. Performed By: #### [id number] #### [facility] [address] [place] [address] [phone] Ilya Travis M.D. [id number] Potassium [Moles/Vol] 4.0 mmol/L Normal 3.5-5.1 [facility] Comment on above: Order Comment: [facility] has implemented the eGFR calculation approach that does not have a coefficient for race that conforms to the NKF-ASN Task Force Recommendations. Performed By: #### [id number] #### [facility] [address] [place] [address] [phone] Ilya Travis M.D. [id number] Protein [Mass/Vol] 6.9 g/dL Normal 6.0-8.0 [facility] Comment on above: Order Comment: [facility] has implemented the eGFR calculation approach that does not have a coefficient for race that conforms to the NKF-ASN Task Force Recommendations. Performed By: #### [id number] #### [facility] [address] [place] [phone] [phone] Ilya Travis M.D. [id number] Sodium [Moles/Vol] 142 mmol/L Normal 135-145 [facility] Comment on above: Order Comment: [facility] has implemented the eGFR calculation approach that does not have a coefficient for race that conforms to the NKF-ASN Task Force Recommendations. Performed By: #### [id number] #### [facility] [address] [place] [address] [phone] Ilya Travis M.D. [id number] Urea nitrogen [Mass/Vol] 12 mg/dL Normal 8-25 [facility] Comment on above: Order Comment: [facility] has implemented the eGFR calculation approach that does not have a coefficient for race that conforms to the NKF-ASN Task Force Recommendations. Performed By: #### [id number] #### [facility] [address] [place] [address] [phone] Ilya Travis M.D. [id number] Urea nitrogen/Creatinine [Mass ratio] 15.8 mg/mg Normal 10.0-20.0 [facility] Comment on above: Order Comment: [facility] has implemented the eGFR calculation approach that does not have a coefficient for race that conforms to the NKF-ASN Task Force Recommendations. Performed By: #### [id number] #### [facility] [address] [place] [address] [phone] Ilya Travis M.D. [id number] IRON STUDY WITH FERRITINon 1 0- Ferritin [Mass/Vol] 74 ng/mL Normal 13-150 [facility] Comment on above: Performed By: #### [id number] #### [facility] [address] [place] [address] [phone] Ilya Travis M.D. [id number] Iron [Mass/Vol] 140 ug/dL Normal 30-160 [facility] Comment on above: Performed By: #### [id number] #### [facility] [address] [place], [place] [address] Ilya Travis M.D. [id number] IRON SATURATION 42 % Normal 20-50 [facility] Comment on above: Performed By: #### [id number] #### [facility] [address] [place] [address] [phone] Ilya Travis M.D. [id number] TIBC (CALCULATED) 337 mcg/dL Normal 225-430 [facility] Comment on above: Performed By: #### [id number] #### [facility] [address] [place] [address] [phone] Ilya Travis M.D. [id number] Comprehensive metabolic 2000 panelon 05-27-2023 Albumin [Mass/Vol] 4.5 g/dL 3.2 - 5.2 g/dL [facility] ALP [Catalytic activity/Vol] 82 U/L 40 - 150 U/L [facility] ALT [Catalytic activity/Vol] 15 U/L 0-35 U/L [facility] Anion gap [Moles/Vol] 15 mmol/L 10 - 2 0 mmol/L [facility] AST [Catalytic activity/Vol] 20 U/L 0-35 U/L [facility] Bilirubin [Mass/Vol] 0.3 mg/dL 0.0 - 1 .3 mg/dL [facility] Calcium [Mass/Vol] 9.3 mg/dL 8.4 - 10. 2 mg/dL [facility] Chloride [Moles/Vol] 102 mmol/L 98 - 10 8 mmol/L [facility] Creatinine [Mass/Vol] 0.50 mg/dL 0.40 - 1.10 mg/dL [facility] GFR/1.73 sq M.predicted CKD-EPI (S/P/Bld) [Vol rate/Area] 115 - PINF [facility] Comment on above: Estimated GFR was ca lculated using the 2020 CKD-EPI creatinine equation. Glucose [Mass/Vol] 97 mg/dL 65 - 99 mg/dL [facility] HCO3 [Moles/Vol] 26 mmol/L 21 - 32 mmol/L [facility] Potassium [Moles/Vol] 4.1 mmol/L 3.5 - 5.1 mmol/L [facility] Protein [Mass/Vol] 6.8 g/dL 6.0 - 8.0 g/dL [facility] Sodium [Moles/Vol] 139 mmol/L 135 - 145 mmol/L [facility] Urea nitrogen [Mass/Vol] 9 mg/dL 8 - 25 mg/dL [facility] Urea nitrogen/Creatinine [Mass ratio] 18.0 mg/mg 10.0 - 20.0 [facility] has implemented the eGFR calculation approach that does not have a coefficient for race that conforms to the NKF-ASN Task Force Recommendations. [facility] Lipid 1996 panelon Cholesterol [Mass/Vol] 187 mg/dL 100 - 199 mg/dL [facility] Cholesterol in HDL [Mass/Vol] 86 mg/dL 40 - 59 mg/dL [facility] Cholesterol in LDL [Mass/Vol] 88 mg/dL 10 - 130 mg/dL [facility] Comment on above: National Cholesterol Education Program Guidelines: LDL Cholesterol Optimal: <100 mg/dL Near Optimal/above Optimal: 100-129 mg/dL Borderline High: 130-159 mg/dL High: 160-189 mg/dL Very High: greater than or equal to 190 mg/dL Cholesterol non HDL [Mass/Vol] 101 mg/dL [facility] Comment on above: National Cholesterol Education Program Guidelines: NON HDL Cholesterol Desirable: <130 mg/dL Borderline High: 130-159 mg/dL High: 160-189 mg/dL Very High: > or = 190 mg/dL Cholesterol.total/Cholest conchita in HDL [Mass ratio] 2.2 {ratio} ratio [facility] Comment on above: Female Cholesterol/H DL Ratio: Average risk: 4.4 1/2 average risk: 3.3 2 x average risk: 7.1 Triglyceride [Mass/Vol] 64 mg/dL 30 - 150 mg/dL [facility] No Panel Informationon 05-26 Interpretation and review of laboratory results Normal [facility] Urinalysis macro (dipstick) panel (U)on 05-27-2023 Bilirubin Ql (U) Negative Negative [facility] th Glucose Ql (U) Negative Normal, Negative mg/dL [facility] Hemoglobin Ql (U) Trace-lysed Abnormal Negative [facility] Interpretation and review of laboratory results Abnormal [facility] Ketones Ql (U) Negative Negative mg/dL [facility] Leukocyte esterase Test strip Ql (U) Negative Negative [facility] Nitrite Ql (U) Negative Negative [facility] pH (U) 5.5 [pH] 5.0 - 7.0 [facility] Protein Ql (U) Negative Negative mg/dL [facility] Specific gravity (U) [Rel density] 1.020 1.005 - 1.025 [facility] Urobilinogen Qn (U) Negative <2.0, 0. 2, Normal, Negative, 1.0, 2.0, <1.0 mg/dL [facility] Vitamin B12on 05-27-2023 Cobalamin (Vitamin B12) [Mass/Vol] 609 pg/mL 232 - 1245 pg/mL [facility] Vitamin D, Total, 25-OHon 25-hydroxyvitamin D [Mass/Vol] 41 ng/mL 30 - 100 ng/mL [facility] Comment on above: Vitamin D status: Deficiency: <10 ng/mL Insufficiency: 10-30 ng/mL Sufficiency: 30-100 ng/mL Toxicity: >100 ng/mL Interpretation and review of laboratory results Normal [facility] Assay performed sally reyes [employer] CLIA methodology. [facility] Absolute lymphocyte countOrd ered By: Paola Ramírez on 04-20-2023 Lymphocytes Auto (Unsp spec) [#/Vol] 0.18 10*3/uL 0.83-4.51 [facility] Automated lymphocyte count a s percentage of total leukocytesOrdered By: Paola Ramírez on 04-20-2023 Lymphocytes/100 WBC Auto (Unsp spec) 1.4 % 19-41 [facility] Basophil percentageOrdered B y: Paola Ramírez on 04-20-2023 Basophils/100 WBC (Bld) 0.2 % 0-1 [facility] Eosinophils/100 WBC (Bld) 0.1 % 0-5 [facility] Hemoglobin (Bld) [Mass/Vol] 11.8 g/dL 12.0-15.0 [facility] Monocytes/100 WBC (Bld) 3.2 % 0-10 [facility] Neutrophils (Bld) [#/Vol] 12.6 10*3/uL 2.0-7.7 [facility] Neutrophils/100 WBC (Bld) 94.8 % 47-70 [facility] WBC (Bld) [#/Vol] 13.2 10*3/uL 4.4-11.0 [facility] Bilirubin [Mass/Vol] 0.70 mg/dL 0.20-1.00 [facility] Comment on above: For patients on eltr ombopag therapy, use of Dimension [place] TBIL is not recommended. Chloride [Moles/Vol] 105 mmol/L 98-107 [facility] Glucose [Mass/Vol] 143 mg/dL 74-106 [facility] Comment on above: Fasting Glucose resu lt greater than or equal to 126 mg/dL suggests DIABETES MELLITUS per A.D.A. criteria. Potassium [Moles/Vol] 3.9 mmol/L 3.5-5.1 [facility] Comment on above: Slight Hemolysis, Re sult may be falsely increased. Protein [Mass/Vol] 6.8 g/dL 6.4-8.2 [facility] Sodium [Moles/Vol] 138 mmol/L 136-145 [facility] Blood platelet adequacy dete ction by light microscopyOrdered By: Paola Ramírez on 04-20-2023 Platelets LM Ql (Bld) ADEQUATE ADEQ [facility] Determination of erythrocyte mean corpuscular volume (MCV)Ordered By: Paola Ramírez on 04-20-2023 MCV (RBC) [Entitic vol] 98.6 fL 81-99 [facility] Direct bilirubinOrdered By: Paola Ramírez on 04-20-2023 Bilirubin.direct [Mass/Vol] 0.19 mg/dL 0.00-0.30 [facility] Erythrocyte distribution wid th ratioOrdered By: Paola Ramírez on 04-20-2023 Erythrocyte distribution width (RBC) [Ratio] 11.9 % 11.6-14.6 [facility] Erythrocyte distribution wid th standard deviationOrdered By: Paola Ramírez on 04-20-2023 Erythrocyte distribution width (RBC) [Entitic vol] 43.2 fL 35.1-43.9 [facility] Hematocrit Auto (Bld) [Volum e fraction]Ordered By: Paola Ramírez on 04-20-2023 Hematocrit (Bld) [Volume fraction] 35.5 % 37-47 [facility] Immature granulocytes/100 WB C Auto (Bld)Ordered By: Paola Ramírez on 04-20-2023 Immature granulocytes/100 WBC (Bld) 0.300 % 0.0-0.9 [facility] Comment on above: IG% - Immature Granu locytes (promyelocytes, myelocytes and metamyelocytes) > 1% indicates that a LEFT SHIFT is Present. Laboratory - Chemistry and C hemistry - challengeOrdered By: Paola Ramírez on 04-20-2023 ALP [Catalytic activity/Vol] 81 U/L 45-117 [facility] ALT [Catalytic activity/Vol] 24 U/L 13-56 [facility] CO2 [Moles/Vol] 24.0 mmol/L 21.0-32.0 [facility] Globulin (S) [Mass/Vol] 3.2 g/dL 2.2-4.2 [facility] Lipase [Catalytic activity/Vol] 23 U/L 13-75 [facility] Comment on above: Please note:LIPASE r evised reference range effective 22. New Lipase methodology. Expected to produce lower values than the previous assay method. NEW Reference Range: 13 - 75 U/L Urea nitrogen/Creatinine [Mass ratio] 15.3 mg/mg 10-20 [facility] Laboratory - Hematology and Cell countsOrdered By: Paola Ramírez on 04-20-2023 MCH (RBC) [Entitic mass] 32.8 pg 27.0-32.0 [facility] MCHC (RBC) [Mass/Vol] 33.2 g/dL 32-36 [facility] Nucleated RBC/100 WBC (Bld) [Ratio] 0 % 0-5 [facility] Platelet mean volume (Bld) [Entitic vol] 9.3 fL 6.2-12.0 [facility] Platelets (Bld) [#/Vol] 364 10*3/uL 150-450 [facility] No Panel InformationOrdered By: Paola Ramírez on 04-20-2023 Estimated Creatinine Clearance Calc 105.61 ml/min [facility] Estimated GFR (MDRD) Amer 124 mL/min >60 [facility] Comment on above: GFR Calc Estimated GFR (MDRD) Non-Af Amer 102 mL/min >60 [facility] Comment on above: Non- GFR Calc RBC Auto (Bld) [#/Vol]Ordere d By: Paola Ramírez on 04-20-2023 RBC (Bld) [#/Vol] 3.60 10*6/uL 4.2-5.4 [facility] RBC morphologyOrdered By: Joe Ramírez on 04-20-2023 RBC morphology finding Nom (Bld) NORM C+C NORMAL NORM C&C [facility] Serum or plasma calcium zaire urement (mass/volume)Ordered By: Paola Ramírez on 04-20-2023 Calcium [Mass/Vol] 9.2 mg/dL 8.5-10.1 [facility] Serum or plasma creatinine m easurement (mass/volume)Ordered By: Paola Ramírez on 04-20-2023 Creatinine [Mass/Vol] 0.65 mg/dL 0.55-1.02 [facility] Comment on above: The validity of the calculated GFR & GFRAA in patients over 70 years has not been determined. Clinical correlation is essential. Serum or plasma urea nitroge n measurement (mass/volume)Ordered By: Paola Ramírez on 04-20-2023 Urea nitrogen [Mass/Vol] 10 mg/dL 7-18 [facility] Stool gastrointestinal hemog lobin detection by immunologic methodOrdered By: Paola Ramírez on 04-20-2023 Lower GI hemoglobin IA Ql (Stl) [facility] Thin prep Papanicolaou smear with manual screeningOrdered By: Paola Ramírez on 04-20-2023 Thin prep Papanicolaou smear with manual screening 3.6 g/dL 3.2-5.0 [facility] Thin prep Papanicolaou smear with manual screening 21 U/L 15-37 [facility] Comment on above: Slight Hemolysis, Re sult may be falsely increased. Thin prep Papanicolaou smear with manual screening 9 5-15 [facility] XR Hand - bilateral PA and L ateral and Obliqueon 01-08-2023 Radiology Study observation (narrative) [facility] IMPRESSION: Minimal bilateral first [facility] degenerative changes. Grinding Room Inspector: BREEZY Transcribe Date/Time: Jan 08 2023 1:23P Dictated by : GILBERT MUNROE MD This examination was interpreted and the report reviewed and electronically signed by: GILBERT MUNROE MD on Jan 08 2023 1:24PM [facility] DIVISION OF RADIOLOGY * * *Final [...] tissues are unremarkable. DIVISION OF RADIOLOGY Provider, [facility] - 01/08/2023 * * *Final Report* * [...] IMPRESSION: Minimal bilateral first [facility]MC degenerative changes. [facility] Transcribe Date/Time: Jan 08 2023 1:23P Dictated by : GILBERT MUNROE MD This examination was interpreted and the report reviewed and electronically signed by: GILBERT MUNROE MD on Jan 08 2023 1:24PM EST [facility] XR Hand - bilateral PA and L ateral and ObliqueOrdered By: [facility] Provider on 01-08-2023 [facility] Amylaseon 09-24-2022 Amylase.pancreatic [Catalytic activity/Vol] 26.4 U/L 13.0 - 53.0 U/L [facility] Comprehensive metabolic 2000 panelon 09-24-2022 Albumin [Mass/Vol] 4.6 g/dL 3.2 - 5.2 g/dL [facility] ALP [Catalytic activity/Vol] 87 U/L 40 - 150 U/L [facility] ALT [Catalytic activity/Vol] 11 U/L 0 - 40 U/L [facility] Anion gap [Moles/Vol] 15 mmol/L 10 - 2 0 mmol/L [facility] AST [Catalytic activity/Vol] 15 U/L 0 - 45 U/L [facility] Bilirubin [Mass/Vol] 0.2 mg/dL 0.0 - 1 .3 mg/dL [facility] Calcium [Mass/Vol] 9.6 mg/dL 8.4 - 10. 2 mg/dL [facility] Chloride [Moles/Vol] 102 mmol/L 98 - 10 8 mmol/L [facility] Creatinine [Mass/Vol] 0.58 mg/dL 0.40 - 1.10 mg/dL [facility] GFR/1.73 sq M.predicted CKD-EPI (S/P/Bld) [Vol rate/Area] 112 - PINF [facility] Comment on above: Estimated GFR was ca lculated using the 2020 CKD-EPI creatinine equation. Glucose [Mass/Vol] 103 mg/dL High 65 - 99 mg/dL [facility] HCO3 [Moles/Vol] 27 mmol/L 21 - 32 mmol/L [facility] Interpretation and review of laboratory results Abnormal [facility] Potassium [Moles/Vol] 4.2 mmol/L 3.5 - 5.1 mmol/L [facility] Protein [Mass/Vol] 6.9 g/dL 6.0 - 8.0 g/dL [facility] Sodium [Moles/Vol] 140 mmol/L 135 - 145 mmol/L [facility] Urea nitrogen [Mass/Vol] 11 mg/dL 8 - 25 mg/dL [facility] Urea nitrogen/Creatinine [Mass ratio] 19.0 mg/mg 10.0 - 20.0 [facility] has implemented the eGFR calculation approach that does not have a coefficient for race that conforms to the NKF-ASN Task Force Recommendations. [facility] Lipaseon 09-24-2022 Lipase [Catalytic activity/Vol] 27 U/L 15 - 65 U/L [facility] No Panel Informationon 09-24 Interpretation and review of laboratory results Normal [facility] Cobalamin (Vitamin B12) [Mas s/Vol]on 05-21-2022 Interpretation and review of laboratory results Normal [facility] Comprehensive metabolic 2000 panelon 05-21-2022 Albumin [Mass/Vol] 4.7 g/dL 3.2 - 5.2 g/dL [facility] ALP [Catalytic activity/Vol] 86 U/L 40 - 150 U/L [facility] ALT [Catalytic activity/Vol] 16 U/L 0 - 40 U/L [facility] Anion gap [Moles/Vol] 17 mmol/L 10 - 2 0 mmol/L [facility] AST [Catalytic activity/Vol] 15 U/L 0 - 45 U/L [facility] Bilirubin [Mass/Vol] 0.4 mg/dL 0.0 - 1 .3 mg/dL [facility] Calcium [Mass/Vol] 9.8 mg/dL 8.4 - 10. 2 mg/dL [facility] Chloride [Moles/Vol] 104 mmol/L 98 - 10 8 mmol/L [facility] Creatinine [Mass/Vol] 0.56 mg/dL 0.40 - 1.10 mg/dL [facility] GFR/1.73 sq M.predicted CKD-EPI (S/P/Bld) [Vol rate/Area] 113 - PINF [facility] Comment on above: Estimated GFR was ca lculated using the 2020 CKD-EPI creatinine equation. Glucose [Mass/Vol] 101 mg/dL High 65 - 99 mg/dL [facility] HCO3 [Moles/Vol] 26 mmol/L 21 - 32 mmol/L [facility] Potassium [Moles/Vol] 4.7 mmol/L 3.5 - 5.1 mmol/L [facility] Protein [Mass/Vol] 6.7 g/dL 6.0 - 8.0 g/dL [facility] Sodium [Moles/Vol] 142 mmol/L 135 - 145 mmol/L [facility] Urea nitrogen [Mass/Vol] 10 mg/dL 8 - 25 mg/dL [facility] Urea nitrogen/Creatinine [Mass ratio] 17.9 mg/mg 10.0 - 20.0 [facility] has implemented the eGFR calculation approach that does not have a coefficient for race that conforms to the NKF-ASN Task Force Recommendations. [facility] Lipid 1996 panelon 3 Cholesterol [Mass/Vol] 198 mg/dL 100 - 199 mg/dL [facility] Cholesterol in HDL [Mass/Vol] 78 mg/dL 40 - 59 mg/dL [facility] Cholesterol in LDL [Mass/Vol] 99 mg/dL 10 - 130 mg/dL [facility] Comment on above: National Cholesterol Education Program Guidelines: LDL Cholesterol Optimal: <100 mg/dL Near Optimal/above Optimal: 100-129 mg/dL Borderline High: 130-159 mg/dL High: 160-189 mg/dL Very High: greater than or equal to 190 mg/dL Cholesterol non HDL [Mass/Vol] 120 mg/dL [facility] Comment on above: National Cholesterol Education Program Guidelines: NON HDL Cholesterol Desirable: <130 mg/dL Borderline High: 130-159 mg/dL High: 160-189 mg/dL Very High: > or = 190 mg/dL Cholesterol.total/Cholest conchita in HDL [Mass ratio] 2.5 {ratio} ratio [facility] Comment on above: Female Cholesterol/H DL Ratio: Average risk: 4.4 1/2 average risk: 3.3 2 x average risk: 7.1 Triglyceride [Mass/Vol] 104 mg/dL 30 - 150 mg/dL [facility] Magnesium Levelon 05-21-2022 Magnesium [Mass/Vol] 2.5 mg/dL High 1.6 - 2 .4 mg/dL [facility] No Panel Informationon 05-21 Interpretation and review of laboratory results Abnormal [facility] Urinalysis macro (dipstick) panel (U)on 05-21-2022 Bilirubin Ql (U) Negative Negative [facility] Glucose Ql (U) Negative Normal, Negative mg/dL [facility] Hemoglobin Ql (U) Negative Negative [facility] Interpretation and review of laboratory results Normal [facility] Ketones Ql (U) Negative Negative mg/dL [facility] Leukocyte esterase Test strip Ql (U) Negative Negative [facility] Nitrite Ql (U) Negative Negative [facility] pH (U) 5.5 [pH] 5.0 - 7.0 [facility] Protein Ql (U) Negative Negative mg/dL [facility] Specific gravity (U) [Rel density] 1.025 1.005 - 1.025 [facility] Urobilinogen Qn (U) <2.0 <2.0, 0. 2, Normal, Negative, 1.0, 2.0, <1.0 mg/dL [facility] Vitamin B12on 05-21-2022 Cobalamin (Vitamin B12) [Mass/Vol] 762 pg/mL 232 - 1245 pg/mL [facility] Vitamin D, Total, 25-OHon 25-hydroxyvitamin D [Mass/Vol] 59 ng/mL 30 - 100 ng/mL [facility] Comment on above: Vitamin D status: Deficiency: <10 ng/mL Insufficiency: 10-30 ng/mL Sufficiency: 30-100 ng/mL Toxicity: >100 ng/mL Interpretation and review of laboratory results Normal [facility] Assay performed sally reyes [employer] CLIA methodology. [facility] - Microbiology an d Antimicrobial susceptibilityon 11-16-2021 SARS-CoV-2 (COVID-19) RNA SHE+probe Ql (Unsp spec) Detected [facility] Work Phone: No Panel Informationon 11-16 Influenza Types A,B Rapid (Clinic) Not detected [facility] Work Phone: Laboratory - Microbiology an d Antimicrobial susceptibilityon 07-17-2021 S. pyogenes Ag IA Ql (Unsp spec) Negative [facility] Work Phone: Comprehensive metabolic 2000 panelon 05-15-2021 Albumin [Mass/Vol] 5.0 g/dL 3.2 - 5.2 g/dL [facility] ALP [Catalytic activity/Vol] 75 U/L 40 - 150 U/L [facility] ALT [Catalytic activity/Vol] 11 U/L 0 - 40 U/L [facility] Anion gap [Moles/Vol] 17 mmol/L 10 - 2 0 mmol/L [facility] AST [Catalytic activity/Vol] 13 U/L 0 - 45 U/L [facility] Bilirubin [Mass/Vol] 0.5 mg/dL 0.0 - 1 .3 mg/dL [facility] Calcium [Mass/Vol] 9.7 mg/dL 8.4 - 10. 2 mg/dL [facility] Chloride [Moles/Vol] 103 mmol/L 98 - 10 8 mmol/L [facility] Creatinine [Mass/Vol] 0.55 mg/dL 0.40 - 1.10 [facility] GFR/1.73 sq M.predicted CKD-EPI (S/P/Bld) [Vol rate/Area] 112 >=60 mL/min/1.73 m2 [facility] Glucose [Mass/Vol] 89 mg/dL 65 - 99 mg/dL [facility] HCO3 [Moles/Vol] 25 mmol/L 21 - 32 mmol/L [facility] Potassium [Moles/Vol] 3.9 mmol/L 3.5 - 5.1 mmol/L [facility] Protein [Mass/Vol] 6.7 g/dL 6.0 - 8.0 g/dL [facility] Sodium [Moles/Vol] 141 mmol/L 135 - 145 mmol/L [facility] Urea nitrogen [Mass/Vol] 11 mg/dL 8 - 25 mg/dL [facility] Urea nitrogen/Creatinine [Mass ratio] 20.0 mg/mg [facility] The eGFR should be used for monitoring renal function only and not for medication dosing. [facility] Lipid 1996 panelon Cholesterol [Mass/Vol] 208 mg/dL High 100 - 199 mg/dL [facility] Cholesterol in HDL [Mass/Vol] 87 mg/dL 40 - 59 [facility] Cholesterol in LDL [Mass/Vol] 98 mg/dL 10 - 130 mg/dL [facility] Comment on above: National Cholesterol Education Program Guidelines: LDL Cholesterol Optimal: <100 mg/dL Near Optimal/above Optimal: 100-129 mg/dL Borderline High: 130-159 mg/dL High: 160-189 mg/dL Very High: greater than or equal to 190 mg/dL Cholesterol non HDL [Mass/Vol] 121 mg/dL [facility] Comment on above: National Cholesterol Education Program Guidelines: NON HDL Cholesterol Desirable: <130 mg/dL Borderline High: 130-159 mg/dL High: 160-189 mg/dL Very High: > or = 190 mg/dL Cholesterol.total/Cholest conchita in HDL [Mass ratio] 2.4 {ratio} ratio [facility] Comment on above: Female Cholesterol/H DL Ratio: Average risk: 4.4 1/2 average risk: 3.3 2 x average risk: 7.1 Interpretation and review of laboratory results Abnormal [facility] Triglyceride [Mass/Vol] 113 mg/dL 30 - 150 mg/dL [facility] Magnesium Levelon 05-15-2021 Magnesium [Mass/Vol] 2.3 mg/dL 1.6 - 2 .4 mg/dL [facility] Magnesium [Mass/Vol]on 05-15 Interpretation and review of laboratory results Normal [facility] No Panel Informationon 05-15 Interpretation and review of laboratory results Normal [facility] TSH DL <= 0.005 mIU/L Qnon 0 05-15-2021 TSH Qn 1.77 m[IU]/L [facility] Urinalysis macro (dipstick) panel (U)Ordered By: Mercedez Whaley on 05-15-2021 Bilirubin Ql (U) Negative Negative [facility] Glucose Ql (U) Negative Normal, Negative mg/dL [facility] Hemoglobin Ql (U) Trace-intact Abnormal Negative [facility] ealt Interpretation and review of laboratory results Abnormal [facility] Ketones Ql (U) Negative Negative mg/dL [facility] Leukocyte esterase Test strip Ql (U) Negative Negative [facility] Nitrite Ql (U) Negative Negative [facility] pH (U) 5.5 [pH] [facility] Protein Ql (U) Negative Negative mg/dL [facility] Specific gravity (U) [Rel density] 1.025 [facility] Urobilinogen Qn (U) <2.0 <2.0, 0. 2, Normal, Negative, 1.0, 2.0, <1.0 mg/dL [facility] Vitamin B12on 05-15-2021 Cobalamin (Vitamin B12) [Mass/Vol] 688 pg/mL 232 - 1245 pg/mL [facility] Vitamin D, Total, 25-OHon 25-hydroxyvitamin D [Mass/Vol] 31 ng/mL 30 - 100 ng/mL [facility] Comment on above: Vitamin D status: Deficiency: <10 ng/mL Insufficiency: 10-30 ng/mL Sufficiency: 30-100 ng/mL Toxicity: >100 ng/mL Interpretation and review of laboratory results Normal [facility] Assay performed sally reyes [employer] CLIA methodology. [facility] XR HIP LEFT WITH PELVIS 2-3 VIEWS [...] FriMay 16, 2021 10:25:26 AM EDT Normal [facility] Comment on above: Order Comment: Injur y/Trauma or Illness?:Illness/Other How long have you had these symptoms (acute/chronic)?:Acute Reason for exam?:lt hip pain, frontal left hip area, NKI History of cancer?:unk Surgeries, chemotherapy, or radiation?:unk Type of Exam?:Initial Additional signs and symptoms?:nonw CNPNon 05-08-2021 CNPN Telephone (ROHITARDPOB ) TERESA CASH ( ) 1975 F Date Time Provider Department 05/08/21 ALIDA GREGORIO During your visit today, we recorded the following information about you: Alida Martinez LPN 05/08/2021 7:14 AM Signed ----- Message from Alida Gregorio APRN.COIL TAPER sent at 05/07/2021 9:43 PM EDT ----- Please call patient and notify her monitor was without significant arrhythmia. Thank you! Alida Martinez LPN 05/08/2021 8:00 AM Signed Left message for to call [facility] for test results. [facility] phone number provided. LAMINE Colin RN 05/08/2021 9:17 AM Signed ----- Message from Alida Gregorio APRN.CNP sent [...] Date Reviewed: 04/09/2021 Reviewed by: Alida Gregorio APRN.COIL TAPER - Fully Assessed Reason for Visit: Results [...] Status:Closed by CARO TRISTAN on 05/08/[address] [facility] ECHOon 05-07-2021 [facility] Ferritinon 11-14-2020 Ferritin [Mass/Vol] 91 ng/mL 13 - 150 ng/mL [facility] Iron and Iron binding capaci ty panelon 11-14-2020 Interpretation and review of laboratory results Abnormal [facility] Iron [Mass/Vol] 164 ug/dL High [facility] h Iron binding capacity [Mass/Vol] 367 [facility] Iron saturation [Mass fraction] 45 % 20 - 50 % [facility] No Panel Informationon 11-14 Interpretation and review of laboratory results Normal [facility] TSH DL <= 0.005 mIU/L Qnon 1 TSH Qn 1.69 m[IU]/L [facility] Comprehensive Metabolic Pane yeni 04-14-2020 Albumin [Mass/Vol] 4.5 g/dL 3.2 - 5.2 g/dL [facility] ALP [Catalytic activity/Vol] 83 U/L 40 - 150 U/L [facility] ALT [Catalytic activity/Vol] 10 U/L 0 - 40 U/L [facility] Anion gap [Moles/Vol] 12 mmol/L 10 - 2 0 mmol/L [facility] AST [Catalytic activity/Vol] 14 U/L 0 - 45 U/L [facility] Bilirubin [Mass/Vol] 0.2 mg/dL 0.0 - 1 .3 mg/dL [facility] Calcium [Mass/Vol] 9.2 mg/dL 8.4 - 10. 2 mg/dL [facility] Chloride [Moles/Vol] 103 mmol/L 98 - 10 8 mmol/L [facility] Creatinine [Mass/Vol] 0.43 mg/dL 0.40 - 1.10 [facility] GFR/1.73 sq M predicted among non-blacks MDRD (S/P/Bld) [Vol rate/Area] The eGFR should be used for monitoring renal function only and not for medication dosing. [facility] GFR/1.73 sq M.predicted CKD-EPI (S/P/Bld) [Vol rate/Area] 122 >=60 mL/min/1.73 m2 [facility] Glucose [Mass/Vol] 94 mg/dL 65 - 99 mg/dL [facility] HCO3 [Moles/Vol] 28 mmol/L 21 - 32 mmol/L [facility] Interpretation and review of laboratory results Abnormal [facility] Potassium [Moles/Vol] 4.2 mmol/L 3.5 - 5.1 mmol/L [facility] Protein [Mass/Vol] 6.6 g/dL 6.0 - 8.0 g/dL [facility] Sodium [Moles/Vol] 139 mmol/L 135 - 145 mmol/L [facility] Urea nitrogen [Mass/Vol] 13 mg/dL 8 - 25 mg/dL [facility] Urea nitrogen/Creatinine [Mass ratio] 30.2 mg/mg High [facility] Lipid Panelon 04-14-2020 Cholesterol [Mass/Vol] 178 mg/dL 100 - 199 mg/dL [facility] Cholesterol in HDL [Mass/Vol] 81 mg/dL 40 - 59 [facility] Cholesterol in LDL [Mass/Vol] 85 mg/dL 10 - 130 mg/dL [facility] Comment on above: National Cholesterol Education Program Guidelines: LDL Cholesterol Optimal: <100 mg/dL Near Optimal/above Optimal: 100-129 mg/dL Borderline High: 130-159 mg/dL High: 160-189 mg/dL Very High: greater than or equal to 190 mg/dL Cholesterol non HDL [Mass/Vol] 97 mg/dL [facility] Comment on above: National Cholesterol Education Program Guidelines: NON HDL Cholesterol Desirable: <130 mg/dL Borderline High: 130-159 mg/dL High: 160-189 mg/dL Very High: > or = 190 mg/dL Cholesterol.total/Cholest conchita in HDL [Mass ratio] 2.2 {ratio} ratio [facility] Comment on above: Female Cholesterol/H DL Ratio: Average risk: 4.4 1/2 average risk: 3.3 2 x average risk: 7.1 Triglyceride [Mass/Vol] 60 mg/dL 30 - 150 mg/dL [facility] POC Urinalysis Dipstickon Bilirubin Ql (U) Negative Negative [facility] Glucose Ql (U) Negative Normal, Negative mg/dL [facility] Hemoglobin Ql (U) Negative Negative [facility] Ketones Ql (U) Negative Negative mg/dL [facility] Leukocyte esterase Test strip Ql (U) Negative Negative [facility] Nitrite Ql (U) Negative Negative [facility] pH (U) 7.0 [pH] [facility] Protein Ql (U) Negative Negative mg/dL [facility] Specific gravity (U) [Rel density] 1.025 [facility] Urobilinogen Qn (U) 0.2 mg/dL <2.0, 0. 2, Normal, Negative, 1.0, 2.0, <1.0 [facility] VITAMIN D, TOTAL, 25-OHon 25-Hydroxyvitamin D2+25-Hydroxyvitamin D3 [Mass/Vol] 53 ng/mL 30 - 100 ng/mL [facility] Comment on above: Vitamin D status: Deficiency: <10 ng/mL Insufficiency: 10-30 ng/mL Sufficiency: 30-100 ng/mL Toxicity: >100 ng/mL Interpretation and review of laboratory results Normal [facility] Assay performed usin [employer] CLIA methodology. [facility] Vitamin B12on 04-14-2020 Cobalamin (Vitamin B12) [Mass/Vol] 660 pg/mL 232 - 1245 pg/mL [facility] Interpretation and review of laboratory results Normal [facility] Comprehensive Metabolic Pane yeni 10-15-2019 Albumin [Mass/Vol] 4.7 g/dL 3.2 - 5.2 g/dL [facility] ALP [Catalytic activity/Vol] 74 U/L 40 - 150 U/L [facility] ALT [Catalytic activity/Vol] 9 U/L 0 - 40 U/L [facility] Anion gap [Moles/Vol] 13 mmol/L 10 - 2 0 mmol/L [facility] AST [Catalytic activity/Vol] 13 U/L 0 - 45 U/L [facility] Bilirubin [Mass/Vol] 0.2 mg/dL 0 - 1.3 mg/dL [facility] Calcium [Mass/Vol] 9.4 mg/dL 8.4 - 10. 2 mg/dL [facility] Chloride [Moles/Vol] 103 mmol/L 98 - 10 8 mmol/L [facility] Creatinine [Mass/Vol] 0.51 mg/dL 0.40 - 1.10 [facility] GFR/1.73 sq M predicted among non-blacks MDRD (S/P/Bld) [Vol rate/Area] The eGFR should be used for monitoring renal function only and not for medication dosing. [facility] GFR/1.73 sq M.predicted CKD-EPI (S/P/Bld) [Vol rate/Area] 116 >=60 mL/min/1.73 m2 [facility] Glucose [Mass/Vol] 93 mg/dL 65 - 99 mg/dL [facility] HCO3 [Moles/Vol] 27 mmol/L 21 - 32 mmol/L [facility] Interpretation and review of laboratory results Abnormal [facility] Potassium [Moles/Vol] 4.3 mmol/L 3.5 - 5.1 mmol/L [facility] Protein [Mass/Vol] 6.5 g/dL 6 - 8 g/dL [facility] alth Sodium [Moles/Vol] 139 mmol/L 135 - 145 mmol/L [facility] Urea nitrogen [Mass/Vol] 11 mg/dL 8 - 25 mg/dL [facility] Urea nitrogen/Creatinine [Mass ratio] 21.6 mg/mg High [facility] VITAMIN D, TOTAL, 25-OHon 25-Hydroxyvitamin D2+25-Hydroxyvitamin D3 [Mass/Vol] 34 ng/mL 30 - 100 ng/mL [facility] Comment on above: Vitamin D status: Deficiency: <10 ng/mL Insufficiency: 10-30 ng/mL Sufficiency: 30-100 ng/mL Toxicity: >100 ng/mL Interpretation and review of laboratory results Normal [facility] Assay performed usin [employer] CLIA methodology. [facility] Vitamin B12on 10-15-2019 Cobalamin (Vitamin B12) [Mass/Vol] 387 pg/mL 232 - 1245 pg/mL [facility] Interpretation and review of laboratory results Normal [facility] ZINCon 07-15-2019 Zinc 0.69 0.66 - 1.10 mcg/mL [facility] Comment on above: ADDITIONAL INFORMATION This test was developed and its performance characteristics determined by [facility] in a manner consistent with CLIA requirements. This test has not been cleared or approved by the U.S. Food and Drug Administration. Test Performed by: [facility] [place] [address] Marketing Development Manager: Don Lynn M.D. Ph.D.; CLIA# [id number] Hemoglobin A1con 07-13-2019 Average glucose Estimated from glycated hemoglobin mass conc (Bld) 100 mg/dL 74 - 114 mg/dL [facility] HbA1c (Bld) [Mass fraction] 5.1 % 4.2 - 5.6 % [facility] Interpretation and review of laboratory results Normal [facility] Normal: 4.2% - 5.6% Increased risk for diabetes: 5.7% - 6.4% Diabetes: >= 6.5% Pediatrics: No established reference range Estimated average glucose: 74-114 mg/dL [facility] LYME DISEASE ANTIBODY, BLOOD on 07-13-2019 B. burgdorferi Ab Ql (S) Negative Negative [facility] Interpretation and review of laboratory results Normal [facility] Assay performed usin [employer] CLIA methodology. [facility] Otheron 07-13-2019 Interpretation and review of laboratory results Normal [facility] T4, Freeon 07-13-2019 Free T4 [Mass/Vol] 1.2 ng/dL 0.7 - 1.7 ng/dL [facility] TSHon 07-13-2019 TSH Qn 1.60 m[IU]/L [facility] Vitamin B12on 07-13-2019 Cobalamin (Vitamin B12) [Mass/Vol] 461 pg/mL 232 - 1245 pg/mL [facility] XR CHEST AP/PA AND LATon No acute cardiopulmonary process. [employer] ([employer] Workstation ID: [id number] [facility] EXAMINATION: XR CHES T AP/PA AND [...] normal in size. Bony thorax is unremarkable. [facility] Interface, Rad In [employer] Speechq - [...] is unremarkable. IMPRESSION: No acute cardiopulmonary process. [employer] Workstation ID: [id number] [facility] Comprehensive Metabolic Pane yeni 02-26-2019 Albumin [Mass/Vol] 4.7 g/dL 3.2 - 5.2 g/dL [facility] ALP [Catalytic activity/Vol] 84 U/L 40 - 150 U/L [facility] ALT [Catalytic activity/Vol] 13 U/L 0 - 40 U/L [facility] Anion gap [Moles/Vol] 12 mmol/L 10 - 2 0 mmol/L [facility] AST [Catalytic activity/Vol] 15 U/L 0 - 45 U/L [facility] Bilirubin [Mass/Vol] 0.5 mg/dL 0 - 1.3 mg/dL [facility] Calcium [Mass/Vol] 9.5 mg/dL 8.4 - 10. 2 mg/dL [facility] Chloride [Moles/Vol] 103 mmol/L 98 - 10 8 mmol/L [facility] Creatinine [Mass/Vol] 0.52 mg/dL 0.4 - 1.1 mg/dL [facility] GFR/1.73 sq M predicted among non-blacks MDRD (S/P/Bld) [Vol rate/Area] The eGFR should be used for monitoring renal function only and not for medication dosing. [facility] GFR/1.73 sq M.predicted CKD-EPI (S/P/Bld) [Vol rate/Area] 116 >=60 mL/min/1.73 m2 [facility] Glucose [Mass/Vol] 94 mg/dL 65 - 99 mg/dL [facility] HCO3 [Moles/Vol] 27 mmol/L 21 - 32 mmol/L [facility] Interpretation and review of laboratory results Normal [facility] Potassium [Moles/Vol] 4.2 mmol/L 3.5 - 5.1 mmol/L [facility] Protein [Mass/Vol] 6.7 g/dL 6 - 8 g/dL [facility] alth Sodium [Moles/Vol] 138 mmol/L 135 - 145 mmol/L [facility] Urea nitrogen [Mass/Vol] 9 mg/dL 8 - 25 mg/dL [facility] Urea nitrogen/Creatinine [Mass ratio] 17.3 mg/mg [facility] Ferritinon 02-26-2019 Ferritin [Mass/Vol] 70 ng/mL 13 - 150 ng/mL [facility] Iron and TIBCon 02-26-2019 Interpretation and review of laboratory results Abnormal [facility] Iron [Mass/Vol] 202 ug[facility] [Mass/Vol] 348 [facility] Iron saturation [Mass fraction] 58 % High 20 - 50 % [facility] Lipid Panelon 02-26-2019 Cholesterol [Mass/Vol] 178 mg/dL 100 - 199 mg/dL [facility] Cholesterol in HDL [Mass/Vol] 87 mg/dL 40 - 59 [facility] Cholesterol in LDL [Mass/Vol] 77 mg/dL 10 - 130 mg/dL [facility] Comment on above: National Cholesterol Education Program Guidelines: LDL Cholesterol Optimal: <100 mg/dL Near Optimal/above Optimal: 100-129 mg/dL Borderline High: 130-159 mg/dL High: 160-189 mg/dL Very High: greater than or equal to 190 mg/dL Cholesterol non HDL [Mass/Vol] 91 mg/dL [facility] Comment on above: National Cholesterol Education Program Guidelines: NON HDL Cholesterol Desirable: <130 mg/dL Borderline High: 130-159 mg/dL High: 160-189 mg/dL Very High: > or = 190 mg/dL Cholesterol.total/Cholest conchita in HDL [Mass ratio] 2.0 {ratio} ratio [facility] Comment on above: Female Cholesterol/H DL Ratio: Average risk: 4.4 1/2 average risk: 3.3 2 x average risk: 7.1 Triglyceride [Mass/Vol] 68 mg/dL 30 - 150 mg/dL [facility] Otheron 02-26-2019 Interpretation and review of laboratory results Normal [facility] POC Urinalysis Dipstickon Bilirubin Ql (U) Negative Negative [facility] Glucose Ql (U) Negative Normal, Negative mg/dL [facility] Hemoglobin Ql (U) Trace-lysed Abnormal Negative [facility] alth Interpretation and review of laboratory results Abnormal [facility] Ketones Ql (U) Negative Negative mg/dL [facility] Leukocyte esterase Test strip Ql (U) Negative Negative [facility] Nitrite Ql (U) Negative Negative [facility] pH (U) 5.5 [pH] [facility] Protein Ql (U) Negative Negative mg/dL [facility] Specific gravity (U) [Rel density] 1.030 Abnormal [facility] Urobilinogen Qn (U) 0.2 mg/dL <2.0, 0. 2, Normal, Negative, 1.0, 2.0, <1.0 [facility] T4, Freeon 02-26-2019 Free T4 [Mass/Vol] 1.0 ng/dL 0.7 - 1.7 ng/dL [facility] TSHon 02-26-2019 TSH Qn 1.36 m[IU]/L [facility] VITAMIN D, TOTAL, 25-OHon 25-Hydroxyvitamin D2+25-Hydroxyvitamin D3 [Mass/Vol] 23 ng/mL Low 30 - 100 ng/mL [facility] Comment on above: Vitamin D status: Deficiency: <10 ng/mL Insufficiency: 10-30 ng/mL Sufficiency: 30-100 ng/mL Toxicity: >100 ng/mL Interpretation and review of laboratory results Abnormal [facility] Assay performed usin [employer] CLIA methodology. [facility] Vitamin B12on 02-26-2019 Cobalamin (Vitamin B12) [Mass/Vol] 551 pg/mL 232 - 1245 pg/mL [facility] Basic Metabolic Panelon 11-10 Anion gap [Moles/Vol] 17 mmol/L 10 - 2 0 mmol/L [facility] Calcium [Mass/Vol] 9.8 mg/dL 8.4 - 10. 2 mg/dL [facility] Chloride [Moles/Vol] 103 mmol/L 98 - 10 8 mmol/L [facility] Creatinine [Mass/Vol] 0.53 mg/dL 0.4 - 1.1 mg/dL [facility] GFR/1.73 sq M predicted among non-blacks MDRD (S/P/Bld) [Vol rate/Area] The eGFR should be used for monitoring renal function only and not for medication dosing. [facility] GFR/1.73 sq M.predicted CKD-EPI (S/P/Bld) [Vol rate/Area] 115 >=60 mL/min/1.73 m2 [facility] Glucose [Mass/Vol] 93 mg/dL 65 - 99 mg/dL [facility] HCO3 [Moles/Vol] 24 mmol/L 21 - 32 mmol/L [facility] Potassium [Moles/Vol] 4.5 mmol/L 3.5 - 5.1 mmol/L [facility] Sodium [Moles/Vol] 139 mmol/L 135 - 145 mmol/L [facility] Urea nitrogen [Mass/Vol] 10 mg/dL 8 - 25 mg/dL [facility] Urea nitrogen/Creatinine [Mass ratio] 18.9 mg/mg [facility] Otheron 11-26-2018 Interpretation and review of laboratory results Normal [facility] Vitamin B12on 11-26-2018 Cobalamin (Vitamin B12) [Mass/Vol] 417 pg/mL 232 - 1245 pg/mL [facility] BMPon 07-30-2018 Anion gap [Moles/Vol] 15 mmol/L 10 - 2 0 mmol/L [facility] Calcium [Mass/Vol] 8.9 mg/dL 8.4 - 10. 2 mg/dL [facility] Chloride [Moles/Vol] 105 mmol/L 98 - 10 8 mmol/L [facility] Creatinine [Mass/Vol] 0.64 mg/dL 0.4 - 1.1 mg/dL [facility] GFR/1.73 sq M predicted among non-blacks MDRD (S/P/Bld) [Vol rate/Area] The eGFR should be used for monitoring renal function only and not for medication dosing. [facility] GFR/1.73 sq M.predicted CKD-EPI (S/P/Bld) [Vol rate/Area] 109 >=60 mL/min/1.73 m2 [facility] Glucose [Mass/Vol] 124 mg/dL High 65 - 99 mg/dL [facility] HCO3 [Moles/Vol] 25 mmol/L 21 - 32 mmol/L [facility] Potassium [Moles/Vol] 4.3 mmol/L 3.5 - 5.1 mmol/L [facility] Sodium [Moles/Vol] 141 mmol/L 135 - 145 mmol/L [facility] Urea nitrogen [Mass/Vol] 12 mg/dL 8 - 25 mg/dL [facility] Urea nitrogen/Creatinine [Mass ratio] 18.8 mg/mg [facility] CBC WITH AUTO DIFFERENTIALon 07-30-2018 Basophils (Bld) [#/Vol] 0.03 10*3/uL [facility] Basophils/100 WBC (Bld) 0.5 % [facility] Eosinophils (Bld) [#/Vol] 0.29 10*3/uL [facility] Eosinophils/100 WBC (Bld) 4.5 % [facility] Erythrocyte distribution width (RBC) [Entitic vol] 11.9 % 11.6 - 14.8 % [facility] Hematocrit (Bld) [Volume fraction] 40.3 % 36 - 46 % [facility] Hemoglobin (Bld) [Mass/Vol] 13.9 g/dL 12 - 16 g/dL [facility] Immature granulocytes (Bld) [#/Vol] 0.02 10*3/uL [facility] Immature granulocytes/100 WBC (Bld) 0.30 % [facility] Comment on above: The IG parameter is the percentage of metamyelocytes, myelocytes, and promyelocytes. Lymphocytes (Bld) [#/Vol] 2.22 10*3/uL [facility] Lymphocytes/100 WBC (Bld) 34.5 % [facility] MCH (RBC) [Entitic mass] 32.9 pg 26 - 34 pg [facility] MCHC (RBC) [Mass/Vol] 34.5 g/dL 31 - 3 7 g/dL [facility] MCV (RBC) [Entitic vol] 95.5 fL 80 - 100 fL [facility] Monocytes (Bld) [#/Vol] 0.60 10*3/uL [facility] Monocytes/100 WBC (Bld) 9.3 % [facility] Neutrophils (Bld) [#/Vol] 3.27 10*3/uL [facility] Neutrophils/100 WBC (Bld) 50.9 % [facility] Nucleated RBC (Bld) [#/Vol] 0.00 10*3/uL [facility] Nucleated RBC/100 WBC (Bld) [Ratio] 0.0 % [facility] Platelet mean volume (Bld) [Entitic vol] 9.2 fL 9 - 15.5 fL [facility] Platelets (Bld) [#/Vol] 353 10*3/uL [facility] RBC (Bld) [#/Vol] 4.22 10*6/uL [facility] ealt WBC (Bld) [#/Vol] 6.43 10*3/uL [facility] ealth Otheron 07-30-2018 Extra Tube Hold for add-ons. [facility] Comment on above: Auto resulted. Interpretation and review of laboratory results Abnormal [facility] POC Urine Pregnancyon 2018 HCG ( test) Ql (U) Negative Negative [facility] Internal Control Pass [facility] Interpretation and review of laboratory results Normal [facility] Specific gravity (U) [Rel density] [facility] URINALYSISon 07-30-2018 Bacteria Auto Ql (U) Rare Abnormal None Se en /hpf [facility] Bilirubin Ql (U) Negative Negative [facility] Clarity Refractometry automated (U) Clear Clear [facility] Color (U) Yellow Colorless, Yellow [facility] Epithelial cells.squamous Auto (Urine sed) [#/Area] 3 [facility] alth Glucose Auto test strip (U) [Mass/Vol] Negative Negative mg/dL [facility] Hemoglobin Auto test strip Ql (U) Moderate Abnormal Negative [facility] Ketones (U) [Mass/Vol] Negative Negat hemalatha mg/dL [facility] Leukocyte esterase Auto test strip Ql (U) Negative Negative [facility] Mucus Auto (Urine sed) [#/Area] Rare None Seen, Rare /lpf [facility] Nitrite Auto test strip Ql (U) Negative Negative [facility] pH (U) 5.0 [pH] [facility] Protein (U) [Mass/Vol] Negative Negat hemalatha mg/dL [facility] RBC Auto (Urine sed) [#/Area] 2 [facility] Specific gravity (U) [Rel density] 1.020 [facility] Urobilinogen (U) [Mass/Vol] <2.0 <2.0 mg/dL [facility] WBC Auto (Urine sed) [#/Area] <1 [facility] Microscopic examination is performed on all urinalysis samples and only positive findings are reported. The test for blood on the chemical analytic portion of urinalysis may also be positive due to hemoglobinuria and myoglobinuria and if red blood cells are present they are quantified by microscopic examination. [facility] Pelvic Transabdominal And Transvaginal With Color Flowon 07-30-2018 Unremarkable pelvic ultrasound. Normal Doppler flow within the ovaries. Workstation ID: [id number], Rad In [employer] Speechq - 07/30/2018 8:44 AM EDT EXAMINATION: PELVIC [...] flow within the ovaries. Workstation ID: [id number] [facility] EXAMINATION: PELVIC ULTRASOUND 07/30/2018 TECHNIQUE: Transabdominal [...] Free Fluid: No evidence of free fluid. [facility] APTTon 03-16-2018 aPTT Coag time (Bld) 31 s [facility] aPTT Coag time (Bld) Therapeutic range f or APTT's is 68 - 104 seconds [facility] Basic Metabolic Panelon Anion gap molar conc 17 mmol/L 10 - 20 mmol/L [facility] Calcium mass conc 9.6 mg/dL 8.4 - 10.2 mg/dL [facility] Chloride molar conc 103 mmol/L 98 - 108 mmol/L [facility] Creatinine mass conc 0.52 mg/dL 0.4 - 1 .1 mg/dL [facility] GFR/1.73 sq M predicted among non-blacks MDRD vol rate/area (S/P/Bld) The eGFR should be used for monitoring renal function only and not for medication dosing. [facility] GFR/1.73 sq M.predicted CKD-EPI vol rate/area (S/P/Bld) 117 >=60 mL/min/1.73 m2 [facility] Glucose mass conc 92 mg/dL 65 - 99 mg/dL [facility] HCO3 molar conc 25 mmol/L 21 - 32 mmol/L [facility] Interpretation and review of laboratory results Normal [facility] Potassium molar conc 3.9 mmol/L 3.5 - 5 .1 mmol/L [facility] Sodium molar conc 141 mmol/L 135 - 145 mmol/L [facility] Urea nitrogen mass conc 10 mg/dL 8 - 25 mg/dL [facility] Urea nitrogen/Creatinine mass ratio 19.2 mg/mg [facility] ECG 12-LEADon 03-16-2018 Atrial Rate [facility] P [facility] P-R Interval [facility] Q-T Interval [facility] Q-T Interval (corrected) [facility] QRS Duration [facility] QTC Calculation (Bezet) [facility] R [facility] T [facility] Ventricular Rate [facility] th Otheron 03-16-2018 Interpretation and review of laboratory results Normal [facility] POC Urinalysis Dipstickon Bilirubin Ql (U) Negative Negative [facility] Glucose Ql (U) Negative Normal, Negative mg/dL [facility] Hemoglobin Ql (U) Negative Negative [facility] Interpretation and review of laboratory results Normal [facility] Ketones Ql (U) Negative Negative mg/dL [facility] Leukocyte esterase Test strip Ql (U) Negative Negative [facility] Nitrite Ql (U) Negative Negative [facility] pH (U) 5.5 [pH] [facility] Protein Ql (U) Negative Negative mg/dL [facility] Specific gravity Relative Density (U) 1.025 [facility] Urobilinogen Qn (U) 0.2 mg/dL <2.0, 0. 2, Normal, Negative, 1.0, 2.0, <1.0 [facility] PT/INRon 03-16-2018 INR Coag RelTime (PPP) 1.0 {INR} [facility] Prothrombin time (PT) Coag time (PPP) 13.0 s [facility] During the induction phase of oral anticoagulation, the INR may not reflect the anticoagulation status of the patient. Therapeutic ranges for INR's are: Most clinical situations: INR 2.0-3.0 Mechanical Prosthetic Valve: INR 2.5-3.5 Critical: INR >5.0 [facility] XR FOREARM RIGHT 2 VIEWSon 0 11-06-2017 [...] forearm noted laterally.2. No acute fracture or dislocation.SKS/cdrWo rkstation ID: [id number] by: RODRÍGUEZ SOLANO on FriNov 06, 2017 10:34:03 AM EDTTranscribed by: CHAVO NEVES on FriNov 06, 2017 10:47:54 AM EDTFinalized by: RODRÍGUEZ SOLANO on FriNov 06, 2017 8:43:51 PM EDT [facility] Comment on above: Order Comment: Reaso n for exam?:Forearm injury, rightInjury/Trauma or Illness?:Injury/TraumaHow long have you had these symptoms (acute/chronic)?:AcuteHistory of cancer?:unkSurgeries, chemotherapy, or radiation?:unkType of Exam?:InitialMechanism of injury?:Forearm injury, impact , right XR Forearm Right 2 Viewson 0 11-06-2017 1. Triangular-shaped radiopaque foreign body versus dystrophic calcification involving the distal forearm noted laterally. 2. No acute fracture or dislocation. [employer] Workstation ID: [id number] Invalid Interpretation Code [employer] [place] EXAMINATION: XR FOREARM RIGHT 2 VIEWS 10/27/2017 [...] no fracture or dislocation. Invalid Interpretation Code [facility] Interface, [facility] 11/06/2017 8:46 PM EDT EXAMINATION: XR [...] laterally. 2. No acute fracture or dislocation. [employer] Workstation ID: [id number] Invalid Interpretation Code [facility] Mammography Screening Alli B ilateralon 05-05-2017 Mammography Screening Alli Bilateral No mammographic evidence of malignancy. BIRADS: BIRADS - CATEGORY 1 Negative, no evidence of malignancy. Normal interval follow-up is recommended in 12 months. OVERALL ASSESSMENT - NEGATIVE A letter of notification will be sent to the patient regarding the results. [facility], along with the National Comprehensive Cancer Network, the [employer], and [facility], recommend annual screening mammograms for women age 40 and older. [employer] Workstation ID: [id number] Invalid Interpretation Code [facility] Mammography Screening Alli Bilateral EXAMINATION: BILATERAL DIGITAL SCREENING MAMMOGRAM WITH TOMOSYNTHESIS INDICATION: Annual screening exam. COMPARISON: Mammograms 2017, 2016, 2009. TECHNIQUE: Standard mammographic views, 2D and 3D. Computer-aided detection was utilized in the interpretation of this exam. FINDINGS: The breast tissue is heterogeneously dense. No suspicious masses, calcifications, or other findings. No significant interval change. Invalid Interpretation Code [facility] CBC and Differentialon 04-10 Creatinine The following orders were created for panel order CBC and Differential. Procedure Abnormality Status --------- ------ CBC Auto Differential[[id number]] Normal Final result Please view results for these tests on the individual orders. Invalid Interpretation Code [facility] Comprehensive Metabolic Pane yeni 04-10-2017 Alanine aminotransferase (ALT) 12 U/L Invalid Interpretation Code 0 - 40 U/L [facility] Albumin 4.6 g/dL Invalid Interpretation Code 3.2 - 5.2 g/dL [facility] Alkaline phosphatase (ALP) 85 U/L Invalid Interpretation Code 40 - 150 U/L [facility] Anion gap 18 mmol/L Invalid Interpretation Code 10 - 20 mmol/L [facility] Aspartate aminotransferase (AST) 16 U/L Invalid Interpretation Code 0 - 45 U/L [facility] Bicarbonate (HCO3) 26 mmol/L Invalid Interpretation Code 21 - 32 mmol/L [facility] Bilirubin (total) 0.4 mg/dL Invalid Interpretation Code 0 - 1.3 mg/dL [facility] BUN/Creatinine Ratio 20.0 mg/mg Invalid Interpretation Code 10.0 - 20.0 [facility] Calcium 9.7 mg/dL Invalid Interpretation Code 8.4 - 10.2 mg/dL [facility] Chloride 101 mmol/L Invalid Interpretation Code 98 - 108 mmol/L [facility] Creatinine 0.60 mg/dL Invalid Interpretation Code 0.4 - 1.1 mg/dL [facility] eGFR (non-black) 112 mL/min/{1.73_m2} Invalid Interpretation Code >=60 [facility] eGFR (non-black) The eGFR should be used for monitoring renal function only and not for medication dosing. Invalid Interpretation Code [facility] Glucose 97 mg/dL Invalid Interpretation Code 68 - 126 mg/dL [facility] Potassium 4.5 mmol/L Invalid Interpretation Code 3.5 - 5.1 mmol/L [facility] Protein 7.0 g/dL Invalid Interpretation Code 6 - 8 g/dL [facility] Sodium 140 mmol/L Invalid Interpretation Code 135 - 145 mmol/L [facility] Urea nitrogen 12 mg/dL Invalid Interpretation Code 8 - 25 mg/dL [facility] ECG 12 Leadon 04-10-2017 Atrial Rate Invalid Interpretation Code [facility] P Yancey Invalid Interpretation Code [facility] P-R Interval Invalid Interpretation Code [facility] Q-T Interval Invalid Interpretation Code [facility] Q-T Interval (corrected) Invalid Interpretation Code [facility] QRS Duration Invalid Interpretation Code [facility] QTC Calculation (Bezet) Invalid Interpretation Code [facility] R Yancey Invalid Interpretation Code [facility] T Yancey Invalid Interpretation Code [facility] Ventricular Rate Invalid Interpretation Code [facility] Hemoglobin A1con 04-10-2017 HbA1c 5.0 % Invalid Interpretation Code 4.2 - 6 % [facility] Lipid Panelon 04-10-2017 Cholesterol 189 mg/dL Invalid Interpretation Code 100 - 199 mg/dL [facility] Cholesterol to HDL Ratio 2.1 {ratio} Invalid Interpretation Code [facility] HDL Cholesterol 100 mg/dL Invalid Interpretation Code [facility] HDL Cholesterol 89 mg/dL High 40 - 59 mg/dL [facility] Interpretation and review of laboratory results Abnormal Invalid Interpretation Code [facility] LDL Cholesterol 86 mg/dL Invalid Interpretation Code 10 - 130 mg/dL [facility] Triglyceride 72 mg/dL Invalid Interpretation Code 30 - 150 mg/dL [facility] POC Urinalysis Dipstickon Interpretation and review of laboratory results Abnormal Invalid Interpretation Code [facility] Urine, bilirubin presence Negative Invali d Interpretation Code Negative [facility] Urine, glucose presence Negative Invalid Interpretation Code Normal, Negative mg/dL [facility] Urine, hemoglobin presence Negative Invalid Interpretation Code Negative [facility] Urine, ketones presence Negative Invalid Interpretation Code Negative mg/dL [facility] Urine, leukocyte esterase presence Negative Invalid Interpretation Code Negative [facility] Urine, nitrite presence Negative Invalid Interpretation Code Negative [facility] Urine, pH 1.0 [pH] Abnormal 5.0 - 7.0 [facility] Urine, protein presence Negative Invalid Interpretation Code Negative mg/dL [facility] Urine, specific gravity 1.000 1 Abnormal 1.00 5 - 1.025 [facility] Urine, urobilinogen 0.2 mg/dL Invalid Interpretation Code <2.0, 0.2, Normal, Negative, 1.0, 2.0, <1.0 [facility] TSH with Reflex Free T4on Thyroid stimulating hormone (TSH) 1.80 mcIU/mL Invalid Interpretation Code 0.32 - 5.00 [facility] Vitamin B12on 04-10-2017 Cobalamins (Vitamin B12) 397 pg/mL Invalid Interpretation Code 232 - 1245 pg/mL [facility] Interpretation and review of laboratory results Normal Invalid Interpretation Code [facility] Vitamin D, Total, 25-OHon Vit D, 25-Hydroxy 15 ng/mL Low 30 - 100 ng/mL [facility] Vitamin D, Total, 25-OH Assay performed using Diasorin CLIA methodology. Invalid Interpretation Code [facility] Gram stain for investigation of transfusion reaction Microscopic observation Gram stain Nom (Unsp spec) [facility] Work Phone: Vital Signs Date Time Vital Sign Value Performing Clinician Facility 11-05-2024 11:31-0400 Diastolic blood pressure 94 mm[Hg] Galilea Whitaker CNP Work Phone: [facility] 11-05-2024 11:31-0400 Systolic blood pressure 158 mm[Hg] Galilea Whitaker COIL TAPER Work Phone: [facility] 11-05-2024 10:56-0400 Body mass index (BMI) [Ratio] 26.15 kg/m2 Galilea Whitaker CNP Work Phone: [facility] 11-05-2024 10:56-0400 Body temperature 98.2 [degF] Galilea Whitaker COIL TAPER Work Phone: [facility] 11-05-2024 10:56-0400 Body weight 78.02 kg Galilea Whitaker COIL TAPER Work Phone: [facility] 11-05-2024 10:56-0400 Heart rate 65 /min Galilea Whitaker COIL T[employer]ER Work Phone: [facility] 11-05-2024 10:56-0400 SaO2% (BldA) [Mass fraction] 96 % Galilea Whitaker CNP Work Phone: [facility] 10-20-2024 13:32-0400 Body height 172.72 cm Galilea Whitaker DEVELOPMENTAL BEHAVIORAL PHYSICIAN-C Work Phone: [facility] 10-20-2024 13:32-0400 Body mass index (BMI) [Ratio] 26.8 kg/m2 Galilea Whitaker DEVELOPMENTAL BEHAVIORAL PHYSICIAN-C Work Phone: [facility] 10-20-2024 13:32-0400 Body temperature 98.2 [degF] Galilea Whitaker DEVELOPMENTAL BEHAVIORAL PHYSICIAN-C Work Phone: [facility] 10-20-2024 13:32-0400 Body weight 80.05 kg Galilea Whitaker DEVELOPMENTAL BEHAVIORAL PHYSICIAN-C Work Phone: [facility] 10-20-2024 13:32-0400 Diastolic blood pressure 99 mm[Hg] Galilea Whitaker DEVELOPMENTAL BEHAVIORAL PHYSICIAN-C Work Phone: [facility] 10-20-2024 13:32-0400 Heart rate 56 /min Galilea Whitaker DEVELOPMENTAL BEHAVIORAL PHYSICIAN-C Work Phone: [facility] 10-20-2024 13:32-0400 Respiratory rate 14 /min Galilea Whitaker DEVELOPMENTAL BEHAVIORAL PHYSICIAN-C Work Phone: [facility] 10-20-2024 13:32-0400 SaO2% (BldA) [Mass fraction] 97 % Galilea Whitaker DEVELOPMENTAL BEHAVIORAL PHYSICIAN-C Work Phone: [facility] 10-20-2024 13:32-0400 Systolic blood pressure 147 mm[Hg] Galilea Whitaker DEVELOPMENTAL BEHAVIORAL PHYSICIAN-C Work Phone: [facility] 10-10-2024 09:44-0400 Body height 172.72 cm Galilea Whitaker DEVELOPMENTAL BEHAVIORAL PHYSICIAN-C Work Phone: [facility] 10-10-2024 09:44-0400 Body mass index (BMI) [Ratio] 26.1 kg/m2 Galilea Whitaker DEVELOPMENTAL BEHAVIORAL PHYSICIAN-C Work Phone: [facility] 10-10-2024 09:44-0400 Body temperature 98.3 [degF] Galilea Whitaker DEVELOPMENTAL BEHAVIORAL PHYSICIAN-C Work Phone: [facility] 10-10-2024 09:44-0400 Body weight 78.01 kg Galilea Whitaker DEVELOPMENTAL BEHAVIORAL PHYSICIAN-C Work Phone: [facility] 10-10-2024 09:44-0400 Diastolic blood pressure 70 mm[Hg] Galilea Whitaker DEVELOPMENTAL BEHAVIORAL PHYSICIAN-C Work Phone: [facility] 10-10-2024 09:44-0400 Heart rate 76 /min Galilea Whitaker DEVELOPMENTAL BEHAVIORAL PHYSICIAN-C Work Phone: [facility] 10-10-2024 09:44-0400 SaO2% (BldA) [Mass fraction] 96 % Galilea Whitaker DEVELOPMENTAL BEHAVIORAL PHYSICIAN-C Work Phone: [facility] 10-10-2024 09:44-0400 Systolic blood pressure 136 mm[Hg] Galilea Whitaker DEVELOPMENTAL BEHAVIORAL PHYSICIAN-C Work Phone: [facility] 06-25-2024 15:19-0400 Body height 170.2 cm Sameera Gonzales MD Work Phone: [facility] 06-25-2024 15:19-0400 Body mass index (BMI) [Ratio] 26.63 kg/m2 Sameera Gonzales MD Work Phone: [facility] 06-25-2024 15:19-0400 Body weight 77.11 kg Sameera Gonzales MD Work Phone: [facility] 06-25-2024 15:19-0400 Diastolic blood pressure 72 mm[Hg] Sameera Gonzales MD Work Phone: [facility] 06-25-2024 15:19-0400 Heart rate 59 /min Sameera Gonzales MD Work Phone: [facility] 06-25-2024 15:19-0400 Systolic blood pressure 130 mm[Hg] Sameera Gonzales MD Work Phone: [facility] 05-21-2024 10:34-0400 Body height 170.3 cm Galilea Whitaker COIL TAPER Work Phone: [facility] 05-21-2024 10:34-0400 Body mass index (BMI) [Ratio] 26.59 kg/m2 Galilea Whitaker COIL TAPER Work Phone: [facility] 05-21-2024 10:34-0400 Body temperature 97.9 [degF] Galilea Whitaker COIL TAPER Work Phone: [facility] 05-21-2024 10:34-0400 Body weight 77.11 kg Galilea Whitaker COIL TAPER Work Phone: [facility] 05-21-2024 10:34-0400 Diastolic blood pressure 85 mm[Hg] Galilea Nicolealberto LANZA Work Phone: [facility] 05-21-2024 10:34-0400 Heart rate 74 /min Galilea Whitaker COIL TAPER Work Phone: [facility] 05-21-2024 10:34-0400 SaO2% (BldA) [Mass fraction] 97 % Galilea Nicolerell COIL TAPER Work Phone: [facility] 05-21-2024 10:34-0400 Systolic blood pressure 133 mm[Hg] Galilea Nicolealberto LANZA Work Phone: [facility] 04-05-2024 14:49-0500 Body height 172.7 cm Vania Gunteroren LANZA Work Phone: [facility] 04-05-2024 14:49-0500 Body mass index (BMI) [Ratio] 25.09 kg/m2 Vania Jani LANZA Work Phone: [facility] 04-05-2024 14:49-0500 Body weight 74.84 kg Vania Sainianurag LANZA Work Phone: [facility] 04-01-2024 09:57-0500 Body height 172.7 cm Yung Francis PA-C Work Phone: [facility] 04-01-2024 09:57-0500 Body mass index (BMI) [Ratio] 25.74 kg/m2 Yung Francis PA-C Work Phone: [facility] 04-01-2024 09:57-0500 Body weight 76.8 kg Yung Francis PA-C Work Phone: [facility] 04-01-2024 09:57-0500 Diastolic blood pressure 88 mm[Hg] Yung Francis PA-C Work Phone: [facility] Comment on above: didn't take her BP meds yet 04-01-2024 09:57-0500 Heart rate 68 /min Ynug Francis PA-C Work Phone: [facility] 04-01-2024 09:57-0500 SaO2% (BldA) [Mass fraction] 98 % Yung Francis PA-C Work Phone: [facility] 04-01-2024 09:57-0500 Systolic blood pressure 144 mm[Hg] Yung Francis PA-C Work Phone: [facility] Comment on above: didn't take her BP meds yet 02-16-2024 08:46-0500 Body temperature 97.7 [degF] No Primary Care Physician [facility] 02-16-2024 08:46-0500 Diastolic blood pressure 87 mm[Hg] No Primary Care Physician [facility] 02-16-2024 08:46-0500 Heart rate 70 /min No Primary Care Physician [facility] 02-16-2024 08:46-0500 Respiratory rate 16 /min No Primary Care Physician [facility] 02-16-2024 08:46-0500 SaO2% (BldA) [Mass fraction] 97 % No Primary Care Physician [facility] 02-16-2024 08:46-0500 Systolic blood pressure 133 mm[Hg] No Primary Care Physician [facility] 02-16-2024 06:00-0500 Body mass index (BMI) [Ratio] 23.6 kg/m2 No Primary Care Physician [facility] 02-16-2024 06:00-0500 Body weight 76.6 kg No Primary Care Physician [facility] 02-14-2024 10:40-0500 Body height 180.34 cm No Primary Care Physician [facility] 01-27-2024 08:34-0500 Body mass index (BMI) [Ratio] 25.1 kg/m2 No Primary Care Physician [facility] 01-27-2024 08:34-0500 Body weight 74.95 kg No Primary Care Physician [facility] 01-27-2024 08:34-0500 Diastolic blood pressure 82 mm[Hg] No Primary Care Physician [facility] 01-27-2024 08:34-0500 Systolic blood pressure 110 mm[Hg] No Primary Care Physician [facility] 11-21-2023 12:57-0400 Body mass index (BMI) [Ratio] 24.33 kg/m2 Galilea Whitaker CNP Work Phone: [facility] 11-21-2023 12:57-0400 Body temperature 97.9 [degF] Galilea Whitaker COIL TAPER Work Phone: [facility] 11-21-2023 12:57-0400 Body weight 70.31 kg Galilea Whitaker COIL TAPER Work Phone: [facility] 11-21-2023 12:57-0400 Diastolic blood pressure 83 mm[Hg] Galilea Whitaker COIL TAPER Work Phone: [facility] 11-21-2023 12:57-0400 SaO2% (BldA) [Mass fraction] 97 % Galilea Whitaker COIL T[employer]ER Work Phone: [facility] 11-21-2023 12:57-0400 Systolic blood pressure 133 mm[Hg] Galilea Whitaker COIL TAPER Work Phone: [facility] 05-27-2023 09:57-0400 Body height 170 cm Galilea Whitaker COIL TAPER Work Phone: [facility] 05-27-2023 09:57-0400 Body mass index (BMI) [Ratio] 22.92 kg/m2 Galilea Whitaker CNP Work Phone: [facility] 05-27-2023 09:57-0400 Body temperature 97.9 [degF] Galilea Whitaker COIL TAPER Work Phone: [facility] 05-27-2023 09:57-0400 Body weight 66.22 kg Galilea Whitaker COIL TAPER Work Phone: [facility] 05-27-2023 09:57-0400 Diastolic blood pressure 75 mm[Hg] Galilea Whitaker COIL TAPER Work Phone: [facility] 05-27-2023 09:57-0400 Heart rate 56 /min Galilea Whitaker COIL T[employer]ER Work Phone: [facility] 05-27-2023 09:57-0400 SaO2% (BldA) [Mass fraction] 97 % Galilea Whitaker COIL T[employer]ER Work Phone: [facility] 05-27-2023 09:57-0400 Systolic blood pressure 119 mm[Hg] Galilea Whitaker CNP Work Phone: [facility] 04-20-2023 13:00-0400 Body temperature 98.2 [degF] [facility] 04-20-2023 13:00-0400 Diastolic blood pressure 55 mm[Hg] [facility] 04-20-2023 13:00-0400 Heart rate 90 /min [facility] 04-20-2023 13:00-0400 Respiratory rate 16 /min [facility] 04-20-2023 13:00-0400 SaO2% (BldA) [Mass fraction] 99 % [facility] 04-20-2023 13:00-0400 Systolic blood pressure 114 mm[Hg] [facility] 04-20-2023 10:53-0400 Body height 172.72 cm [facility] 04-20-2023 10:53-0400 Body mass index (BMI) [Ratio] 22.3 kg/m2 [facility] 04-20-2023 10:53-0400 Body weight 66.67 kg [facility] 01-23-2023 09:51-0500 Body mass index (BMI) [Ratio] 23.7 kg/m2 [facility] 01-23-2023 09:51-0500 Body weight 70.76 kg [facility] 01-23-2023 09:51-0500 Diastolic blood pressure 81 mm[Hg] [facility] 01-23-2023 09:51-0500 Systolic blood pressure 117 mm[Hg] [facility] 11-19-2022 10:49-0400 Body height 170.2 cm Galilea Whitaker CNP Work Phone: [facility] 11-19-2022 10:49-0400 Body mass index (BMI) [Ratio] 25.69 kg/m2 Galilea Whitaker CNP Work Phone: [facility] 11-19-2022 10:49-0400 Body temperature 98.29 [degF] Galilea Whitaker COIL TAPER Work Phone: [facility] 11-19-2022 10:49-0400 Body weight 74.39 kg Galilea Whitaker COIL T[employer]ER Work Phone: [facility] 11-19-2022 10:49-0400 Diastolic blood pressure 88 mm[Hg] Galilea Whitaker COIL T[employer]ER Work Phone: [facility] 11-19-2022 10:49-0400 Heart rate 61 /min Galilea Whitaker COIL T[employer]ER Work Phone: [facility] 11-19-2022 10:49-0400 SaO2% (BldA) [Mass fraction] 95 % Galilea Whitaker COIL T[employer]ER Work Phone: [facility] 11-19-2022 10:49-0400 Systolic blood pressure 131 mm[Hg] Galilea Whitaker COIL T[employer]ER Work Phone: [facility] 09-24-2022 15:00-0400 Body mass index (BMI) [Ratio] 25.93 kg/m2 Galilea Whitaker COIL T[employer]ER Work Phone: [facility] 09-24-2022 15:00-0400 Body temperature 98.01 [degF] Galilea Whitaker COIL T[employer]ER Work Phone: [facility] 09-24-2022 15:00-0400 Body weight 75.3 kg Galilea Whitaker COIL T[employer]ER Work Phone: [facility] 09-24-2022 15:00-0400 Diastolic blood pressure 85 mm[Hg] Galilea Whitaker COIL T[employer]ER Work Phone: [facility] 09-24-2022 15:00-0400 Heart rate 68 /min Galilea Whitaker COIL T[employer]ER Work Phone: [facility] 09-24-2022 15:00-0400 SaO2% (BldA) [Mass fraction] 97 % Galilea Whitaker COIL T[employer]ER Work Phone: [facility] 09-24-2022 15:00-0400 Systolic blood pressure 127 mm[Hg] Galilea Whitaker COIL TAPER Work Phone: [facility] 05-21-2022 10:09-0400 Body height 170.4 cm Galilea Whitaker COIL T[employer]ER Work Phone: [facility] 05-21-2022 10:09-0400 Body mass index (BMI) [Ratio] 27.13 kg/m2 Galilea Whitaker COIL T[employer]ER Work Phone: [facility] 05-21-2022 10:09-0400 Body temperature 98.1 [degF] Galilea Sherman COIL TAPER Work Phone: [facility] 05-21-2022 10:09-0400 Body weight 78.79 kg Galileajeanne Whitaker COIL TAPER Work Phone: [facility] 05-21-2022 10:09-0400 Diastolic blood pressure 86 mm[Hg] Galilea Whitaker COIL TAPER Work Phone: [facility] 05-21-2022 10:09-0400 Heart rate 52 /min Galilea Whitaker COIL T[employer]ER Work Phone: [facility] 05-21-2022 10:09-0400 SaO2% (BldA) [Mass fraction] 98 % Galilea Whitaker COIL T[employer]ER Work Phone: [facility] 05-21-2022 10:09-0400 Systolic blood pressure 133 mm[Hg] Galilea Sherman COIL TAPER Work Phone: [facility] 04-07-2022 19:26-0500 Diastolic blood pressure 74 mm[Hg] GALILEA WHITAKER [facility] 04-07-2022 19:26-0500 Heart rate 67 /[facility]-07[facility] 19:26-0500 Respiratory rate 15 /min GALILEA WHITAKER [facility] 04-07-2022 19:26-0500 SaO2% (BldA) [Mass fraction] 99 % GALILEA WHITAKER [facility] 04-07-2022 19:26-0500 Systolic blood pressure 130 mm[Hg] [facility] 04-07-2022 19:22-0500 Body temperature 98.2 [degF] GALILEAJEANNE WHITAKER [facility] 04-07-2022 17:02-0500 Body height 172.72 [facility]-07-2022 17:02-0500 Body mass index (BMI) [Ratio] 26.6 kg/m2 [facility] 04-07-2022 17:02-0500 Body weight 79.7 kg [facility] 12-28-2021 11:33-0500 Body height 172.72 cm [facility] Work Phone: 12-28-2021 11:33-0500 Body mass index (BMI) [Ratio] 26.5 kg/m2 [facility] 12-28-2021 11:33-0500 Body weight 79.15 kg [facility] 12-28-2021 11:33-0500 Diastolic blood pressure 83 mm[Hg] [facility] 12-28-2021 11:33-0500 Systolic blood pressure 125 mm[Hg] [facility] 08-06-2021 13:19-0400 Body height 172.72 cm CHARISSA CARRINGTON Work Phone: [facility] Work Phone: 08-06-2021 13:18-0400 Body mass index (BMI) [Ratio] 25.7 kg/m2 CHARISSA Marcos PA Work Phone: [facility] Work Phone: 08-06-2021 13:18-0400 Body weight 76.65 kg CHARISSA CARRINGTON Work Phone: [facility] Work Phone: 08-06-2021 13:18-0400 Diastolic blood pressure 82 mm[Hg] CHARISSA CARRINGTON Work Phone: [facility] Work Phone: 08-06-2021 13:18-0400 Systolic blood pressure 114 mm[Hg] PA Presley Marcos PA Work Phone: [facility] Work Phone: 07-17-2021 12:33-0400 Body temperature 98.2 [degF] PA Presley Marcos PA Work Phone: [facility] Work Phone: 07-17-2021 12:33-0400 Diastolic blood pressure 90 mm[Hg] PA Presley Marcos PA Work Phone: [facility] Work Phone: 07-17-2021 12:33-0400 Heart rate 88 /min PA Presley Marcos PA Work Phone: [facility] Work Phone: 07-17-2021 12:33-0400 Respiratory rate 15 /min PA Presley Marcos PA Work Phone: [facility] Work Phone: 07-17-2021 12:33-0400 SaO2% (BldA) [Mass fraction] 99 % PA Presley Marcos PA Work Phone: [facility] Work Phone: 07-17-2021 12:33-0400 Systolic blood pressure 130 mm[Hg] CHARISSA Marcos PA Work Phone: [facility] [facility] Work Phone: 05-28-2021 15:54-0400 Body weight 80.74 kg Alida Gregorio APRN.COIL TAPER Work Phone: [facility] 05-28-2021 15:54-0400 Diastolic blood pressure 88 mm[Hg] Alida Gregorio APRN.COIL TAPER Work Phone: [facility] 05-28-2021 15:54-0400 Heart rate 76 /min Alida Gregorio APRN.COIL TAPER Work Phone: [facility] 05-28-2021 15:54-0400 Systolic blood pressure 130 mm[Hg] Alida Gregorio COIL TAPER Work Phone: [facility] 05-15-2021 09:13-0400 Diastolic blood pressure 92 mm[Hg] Galilea Nicolerell COIL TAPER Work Phone: [facility] Comment on above: left arm, regular cuff, manual 05-15-2021 09:13-0400 Systolic blood pressure 142 mm[Hg] Galilea Whitaker COIL TAPER Work Phone: [facility] Comment on above: left arm, regular cuff, manual 05-15-2021 08:46-0400 Body height 170.5 cm Galilea Sherman COIL TAPER Work Phone: [facility] 05-15-2021 08:46-0400 Body mass index (BMI) [Ratio] 27.06 kg/m2 Galilea Sherman COIL TAPER Work Phone: [facility] 05-15-2021 08:46-0400 Body temperature 97.81 [degF] Galilea Sherman COIL TAPER Work Phone: [facility] 05-15-2021 08:46-0400 Body weight 78.65 kg Galilea Sherman COIL TAPER Work Phone: [facility] 05-15-2021 08:46-0400 Heart rate 59 /min Galilea Whitaker COIL TAPER Work Phone: [facility] 05-15-2021 08:46-0400 SaO2% (BldA) [Mass fraction] 98 % Galilea Sherman COIL TAPER Work Phone: [facility] 11-14-2020 14:03-0400 Diastolic blood pressure 92 mm[Hg] Galilea Sherman COIL TAPER Work Phone: [facility] Comment on above: left arm, regular cuff, manual 11-14-2020 14:03-0400 Systolic blood pressure 132 mm[Hg] Galilea Sherman COIL TAPER Work Phone: [facility] Comment on above: left arm, regular cuff, manual 11-14-2020 13:36-0400 Body mass index (BMI) [Ratio] 25.27 kg/m2 Galilea Whitaker CNP Work Phone: [facility] 11-14-2020 13:36-0400 Body temperature 98.29 [degF] Galilea Whitaker CNP Work Phone: [facility] 11-14-2020 13:36-0400 Body weight 75.39 kg Galilea Whitaker CNP Work Phone: [facility] 11-14-2020 13:36-0400 Heart rate 72 /min Galilea Whitaker COIL TAPER Work Phone: [facility] 11-14-2020 13:36-0400 SaO2% (BldA) [Mass fraction] 98 % Galilea Whitaker [facility] Work Phone: [facility] 04-14-2020 09:44-0500 BP Diastolic 90 mm[Hg] Galilea Whitaker [facility] Comment on above: Manual 04-14-2020 09:44-0500 BP Systolic 120 mm[Hg] Galilea Whitaker [facility] Comment on above: Manual 04-14-2020 09:04-0500 BMI (Body Mass Index) 26.59 kg/m2 Galilea Whitaker [facility] 04-14-2020 09:04-0500 Body Temperature 98.29 [degF] Galilea Whitaker [facility] 04-14-2020 09:04-0500 Body weight 79.33 kg Galilea Whitaker [facility] 04-14-2020 09:04-0500 Height 172.7 cm Galilea Whitaker [facility] 04-14-2020 09:04-0500 Pulse (Heart Rate) 72 /min Galilea Whitaker [facility] 04-14-2020 09:04-0500 Pulse Oximetry 98 % Galilea Whitaker [facility] 10-15-2019 14:36-0400 BP Diastolic 84 mm[Hg] [facility]: left arm, regular cuff, manual 10-15-2019 14:36-0400 BP Systolic 128 mm[Hg] Galilea Whitaker [facility] Comment on above: left arm, regular cuff, manual 10-15-2019 14:07-0400 BMI (Body Mass Index) 24.22 kg/m2 Galilea Whitaker [facility] 10-15-2019 14:07-0400 Body Temperature 98.2 [degF] [facility] 10-15-2019 14:07-0400 Body weight 72.26 [facility] 10-15-2019 14:07-0400 Height 172.7 cm [facility] 10-15-2019 14:07-0400 Pulse (Heart Rate) 64 /min [facility] 10-15-2019 14:07-0400 Pulse Oximetry 98 % [facility] 07-13-2019 15:49-0400 BP Diastolic 80 mm[Hg] [facility] 07-13-2019 15:49-0400 BP Systolic 140 mm[Hg] [facility] 07-13-2019 14:57-0400 BMI (Body Mass Index) 24.3 kg/m2 [facility] 07-13-2019 14:57-0400 Body weight 72.48 kg [facility] 07-13-2019 14:57-0400 Height 172.7 cm [facility] 07-13-2019 14:57-0400 Pulse (Heart Rate) 78 /min [facility] 07-13-2019 14:57-0400 Pulse Oximetry 98 % [facility] 02-26-2019 08:08-0500 BMI (Body Mass Index) 25.57 kg/m2 [facility] 02-26-2019 08:08-0500 Body weight 76.3 kg [facility] 02-26-2019 08:08-0500 BP Diastolic 82 mm[Hg] [facility] 02-26-2019 08:08-0500 BP Systolic 134 mm[Hg] [facility] 02-26-2019 08:08-0500 Height 172.7 cm [facility] 02-26-2019 08:08-0500 Pulse (Heart Rate) 78 /min [facility] 02-26-2019 08:08-0500 Pulse Oximetry 96 % [facility] 11-26-2018 10:12-0400 BMI (Body Mass Index) 25.65 kg/m2 Chery Saez [facility] 11-26-2018 10:12-0400 Body weight 76.52 kg Chery Saez [facility] 11-26-2018 10:12-0400 BP Diastolic 79 mm[Hg] Chery Saez [facility] 11-26-2018 10:12-0400 BP Systolic 119 mm[Hg] Chery Saez [facility] 11-26-2018 10:12-0400 Height 172.7 cm Chery Saez [facility] 11-26-2018 10:12-0400 Pulse (Heart Rate) 62 /min Chery Saez [facility] 11-26-2018 10:12-0400 Pulse Oximetry 95 % Chery Saez [facility] 10-01-2018 09:37-0400 BP Diastolic 110 mm[Hg] Chery Saez [facility] Comment on above: Manual 10-01-2018 09:37-0400 BP Systolic 168 mm[Hg] Chery Saez [facility] Comment on above: Manual 10-01-2018 08:55-0400 BMI (Body Mass Index) 25.85 kg/m2 Chery Saez [facility] 10-01-2018 08:55-0400 Body Temperature 98.2 [degF] Chery Saez [facility] 10-01-2018 08:55-0400 Body weight 77.11 kg Chery Saez [facility] 10-01-2018 08:55-0400 Height 172.7 cm Chery Saez [facility] 10-01-2018 08:55-0400 Pulse (Heart Rate) 75 /min Chery Saez [facility] 10-01-2018 08:55-0400 Pulse Oximetry 97 % Chery Saez [facility] 07-30-2018 07:14-0400 BMI (Body Mass Index) 26.15 kg/m2 [facility] Jeny [facility] 07-30-2018 07:14-0400 Body Temperature 97.7 [degF] [facility] 07-30-2018 07:14-0400 Body weight 78.02 kg Robbyzoie Fermin [facility] 07-30-2018 07:14-0400 BP Diastolic 59 mm[Hg] [facility] Jeny [facility] 07-30-2018 07:14-0400 BP Systolic 131 mm[Hg] [facility] Jeny [facility] 07-30-2018 07:14-0400 Height 172.7 cm [facility] 07-30-2018 07:14-0400 Pulse (Heart Rate) 76 /min Robby Fermin [facility] 07-30-2018 07:14-0400 Pulse Oximetry 100 % Robby Fermin [facility] 07-30-2018 07:14-0400 Respiratory Rate 16 /min Robby Fermin [facility] 07-16-2018 09:42-0400 BMI (Body Mass Index) 25.16 kg/m2 Galilea Whitaker [facility] 07-16-2018 09:42-0400 Body weight 77.29 kg Galilea Whitaker [facility] 07-16-2018 09:42-0400 BP Diastolic 81 mm[Hg] [facility] 07-16-2018 09:42-0400 BP Systolic 119 mm[Hg] Galilea Whitaker [facility] 07-16-2018 09:42-0400 Height 175.3 cm Galilea [facility] 07-16-2018 09:42-0400 Pulse (Heart Rate) 58 /min Galilea Whitaker [facility] 07-16-2018 09:42-0400 Pulse Oximetry 96 % [facility] 03-16-2018 14:20-0500 BMI (Body Mass Index) 25.99 kg/m2 Galilea [facility] 03-16-2018 14:20-0500 BP Diastolic 82 mm[Hg] [facility] 03-16-2018 14:20-0500 BP Systolic 128 mm[Hg] [facility] 03-16-2018 14:20-0500 Height 175.3 cm Galilea [facility] 03-16-2018 14:20-0500 Pulse (Heart Rate) 74 /min Galilea [facility] 03-16-2018 14:20-0500 Pulse Oximetry 98 % Galilea [facility] 03-16-2018 14:20-0500 Weight 79.83 kg [facility] 11-06-2017 09:43-0400 BMI (Body Mass Index) 25.4 kg/m2 [facility] 11-06-2017 09:43-0400 Body Temperature 98.49 [degF] [facility] 11-06-2017 09:43-0400 BP Diastolic 90 mm[Hg] [facility] 11-06-2017 09:43-0400 BP Systolic 139 mm[Hg] [facility] 11-06-2017 09:43-0400 Height 175.3 cm Jackson Cruz [facility] 11-06-2017 09:43-0400 Pulse (Heart Rate) 56 /min Jackson Cruz [facility] 11-06-2017 09:43-0400 Pulse Oximetry 98 % Jackson Cruz [facility] 11-06-2017 09:43-0400 Respiratory Rate 12 /min Jackson Cruz [facility] 11-06-2017 09:43-0400 Weight 78.02 kg Jackson Cruz [facility] 10-14-2017 14:30-0400 BMI (Body Mass Index) 26.61 kg/m2 Galilea [facility] 10-14-2017 14:30-0400 Body Temperature 98.29 [degF] [facility] 10-14-2017 14:30-0400 BP Diastolic 102 mm[Hg] [facility] 10-14-2017 14:30-0400 BP Systolic 162 mm[Hg] [facility] 10-14-2017 14:30-0400 Height 172.7 cm [facility] 10-14-2017 14:30-0400 Pulse (Heart Rate) 68 /min Galilea [facility] 10-14-2017 14:30-0400 Respiratory Rate 16 /min Galilea [facility] 10-14-2017 14:30-0400 Weight 79.38 kg [facility] 04-10-2017 08:34-0500 BMI (Body Mass Index) 26.12 kg/m2 [facility] 04-10-2017 08:34-0500 Body Temperature 98.1 [degF] [facility] 04-10-2017 08:34-0500 BP Diastolic 80 mm[Hg] [facility] 04-10-2017 08:34-0500 BP Systolic 140 mm[Hg] Galilea [facility] 04-10-2017 08:34-0500 Height 172.7 cm [facility] 04-10-2017 08:34-0500 Pulse (Heart Rate) 72 /min [facility] 04-10-2017 08:34-0500 Pulse Oximetry 99 % [facility] 04-10-2017 08:34-0500 Respiratory Rate 16 /min [facility] 04-10-2017 08:34-0500 Weight 77.93 kg Galilea Whitaker [facility] 10-08-2016 09:16-0400 BMI (Body Mass Index) 26.91 kg/m2 Galilea Whitaker [facility] Work Phone: 10-08-2016 09:16-0400 BP Diastolic 92 mm[Hg] Galilea Whitaker [facility] Work Phone: 10-08-2016 09:16-0400 BP Systolic 157 mm[Hg] Galilea Whitaker [facility] Work Phone: 10-08-2016 09:16-0400 Height 172.7 cm Galilea Whitaker [facility] Work Phone: 10-08-2016 09:16-0400 Pulse (Heart Rate) 54 /min Galilea Whitaker [facility] Work Phone: 10-08-2016 09:16-0400 Pulse Oximetry 97 % Galilea Whitaker [facility] Work Phone: 10-08-2016 09:16-0400 Weight 80.29 kg Galilea Whitaker [facility] Work Phone: Encounters Encounter Date Encounter Type Care Provider Facility Start: 12-23-2024 End: 12-23-2024 ambulatory Conrad Holt Facility:[facility] Start: 12-14-2024 ambulatory GALILEA KING [facility] Start: 12-09-2024 End: 12-09-2024 ambulatory Paola Heath Facility:[facility] Start: 12-07-2024 End: 12-07-2024 ambulatory Paola Heath Facility:[facility] Start: 11-29-2024 End: 11-29-2024 Patient encounter procedure Paola JENNINGSC -[facility] Work Phone: Start: 11-29-2024 End: 11-29-2024 ambulatory Galilea JENNINGSC Work Phone: -[facility] Start: 11-05-2024 End: 11-05-2024 Office outpatient visit 25 minutes Galilea Whitaker COIL TAPER Work Phone: [facility] Comment on above: Essential hypertensi on (Primary Dx); GOPAL (acute kidney injury); Chronic constipation; Bloating; Urinary frequency; Weight gain Start: 11-05-2024 End: 11-05-2024 ambulatory GALILEA WHITAKRE [facility] Start: 10-20-2024 End: 10-20-2024 ambulatory GALILEA WHITAKER Facility:[facility] Start: 10-10-2024 End: 10-10-2024 Patient encounter procedure Richard Mane Cedric DEVELOPMENTAL BEHAVIORAL PHYSICIAN-C [facility] Work Phone: Start: 10-10-2024 End: 10-10-2024 ambulatory Galilea Whitaker DEVELOPMENTAL BEHAVIORAL PHYSICIAN-C Work Phone: [facility] Start: 08-30-2024 End: 08-31-2024 Refill Galilea Whitaker COIL TAPER Work Phone: [facility] Comment on above: Herpes labialis (Tanna rusty Dx) Start: 07-19-2024 End: 07-19-2024 Emergency department patient visit [facility] Start: 07-16-2024 End: 07-16-2024 Postop follow up visit related to original px Sameera Gonzales MD Work Phone: [facility] Comment on above: Epidermoid cyst of h and (Primary Dx) Start: 07-16-2024 End: 07-16-2024 ambulatory SAMEERA GONZALES [facility] Start: 07-07-2024 End: 07-08-2024 Online digital e/m svc est pt <7 d 5-10 minutes Galilea Whitaker COIL TAPER Work Phone: [facility] Comment on above: E-Visit for Vaginal Discharge / Irritation Start: 07-07-2024 End: 07-08-2024 ambulatory GALILEA WHITAKER [facility] Start: 07-02-2024 End: 07-02-2024 ambulatory SAMEERA GONZALES [facility] Start: 06-25-2024 End: 06-25-2024 Office outpatient visit 10 minutes Sameera Gonzales MD Work Phone: [facility] Comment on above: Epidermoid cyst of h and (Primary Dx) Start: 06-25-2024 End: 06-25-2024 ambulatory SAMEERA GONZALES [facility] Start: 06-11-2024 End: 06-14-2024 Online digital e/m svc est pt <7 d 5-10 minutes Galilea Whitaker COIL TAPER Work Phone: [facility] Comment on above: E-Visit for Vaginal Discharge / Irritation Start: 06-11-2024 End: 06-14-2024 ambulatory GALILEA WHITAKER [facility] Start: 06-10-2024 End: 06-10-2024 Admission to same day surgery center Sameera Gonzales MD Work Phone: [facility] Comment on above: Epidermoid cyst of h and (Primary Dx) Start: 06-01-2024 End: 06-01-2024 Office outpatient visit 5 minutes Vania Gunter COIL TAPER Work Phone: [facility] Comment on above: Epidermoid cyst of h and (Primary Dx) Start: 06-01-2024 End: 06-01-2024 ambulatory GALILEA WHITAKER [facility] Start: 05-31-2024 End: 05-31-2024 ambulatory PROVIDER NOT IN SYSTEM [facility] Start: 05-24-2024 End: 07-24-2024 Follow-up encounter Galilea Whitaker COIL TAPER Work Phone: [facility] Comment on above: POC Urinalysis Dipst ick, Lipid Panel, Comprehensive Metabolic Panel, Additional followed-up results: 3 Start: 05-21-2024 End: 05-21-2024 Patient encounter procedure Galilea Whitaker COIL TAPER Work Phone: [facility] Work Phone: Start: 05-21-2024 End: 05-21-2024 Periodic preventive med est patient 40-64yrs Galilea King Sherman COIL TAPER Work Phone: [facility] Comment on above: Annual physical exam (Primary Dx); Essential hypertension; GOPAL (acute kidney injury); Vitamin D deficiency; Vitamin B12 deficiency Start: 05-21-2024 End: 05-21-2024 ambulatory GALILEA WHITAKER [facility] Start: 05-21-2024 End: 05-21-2024 Encounter for general adult medical examination without abnormal findings GALILEA KING [facility] Start: 05-12-2024 End: 05-12-2024 ambulatory No Primary Care Physician [facility] Work Phone: Start: 05-12-2024 End: 05-12-2024 Patient encounter procedure No Primary Care Physician -[facility] Work Phone: Start: 05-12-2024 End: 05-12-2024 ambulatory BETTY Facility:[facility] Start: 04-05-2024 End: 04-05-2024 Office outpatient new 30 minutes Vania Gunter COIL TAPER Work Phone: [facility] Comment on above: Ganglion cyst (Prima ry Dx) Start: 04-05-2024 End: 04-09-2024 Orders Only Galilea King Sherman COIL TAPER Work Phone: [facility] Comment on above: GOPAL (acute kidney in jury) (Primary Dx); Urinary frequency Start: 04-01-2024 End: 04-01-2024 ambulatory SELF Facility:[facility] Start: 04-01-2024 End: 04-01-2024 Patient encounter procedure Yung Francis PA-C Work Phone: [facility] Comment on above: Chronic left shoulde r pain (Primary Dx); Cervical spondylosis without myelopathy Start: 02-21-2024 End: 02-21-2024 Emergency department patient visit BELLA ARCHULETA [facility] Start: 02-20-2024 ambulatory GALILEA WHITAKER [facility] Start: 02-17-2024 End: 02-17-2024 Orders Only Galilea Whitaker COIL TAPER Work Phone: [facility] Comment on above: GOPAL (acute kidney in jury) (Primary Dx) Start: 02-16-2024 Non-patient / Non-visit Dr. Lupe Peña MD -[facility] Work Phone: Start: 02-15-2024 End: 02-15-2024 ambulatory Micky Moss Facility:[facility] Start: 02-15-2024 End: 02-15-2024 Non-patient / Non-visit Dr. Micky Moss MD -[facility] Work Phone: Start: 02-15-2024 Non-patient / Non-visit Dr. Lupe Peña MD -[facility] Work Phone: Start: 02-14-2024 ambulatory Susy Dillon Facility:[facility] Start: 02-14-2024 End: 02-16-2024 Evaluation and management of inpatient Dr. Ilya Peña MD -[facility] Work Phone: Start: 01-29-2024 ambulatory No Primary Car e Physician [place] Start: 01-27-2024 End: 01-27-2024 Patient encounter procedure Mable Mckeon DEVELOPMENTAL BEHAVIORAL PHYSICIAN-C -[facility] Work Phone: Start: 01-27-2024 End: 01-27-2024 Patient encounter status Mable Mckeon DEVELOPMENTAL BEHAVIORAL PHYSICIAN-C [facility] Start: 01-27-2024 End: 01-27-2024 ambulatory No Primary Care Physician [facility] Start: 01-27-2024 End: 01-27-2024 ambulatory No Primary Care Physician Facility:[facility] Start: 01-23-2024 End: 01-23-2024 Orders Only Galilea Whitaker COIL TAPER Work Phone: [facility] Comment on above: Chronic migraine wit hout aura without status migrainosus, not intractable Start: 11-21-2023 End: 11-25-2023 ambulatory GALILEA WHITAKER [facility] Start: 11-21-2023 End: 11-21-2023 Office outpatient visit 25 minutes Galilea Whitaker COIL TAPER Work Phone: [facility] Comment on above: Essential hypertensi on (Primary Dx); Chronic constipation; Chronic migraine without aura without status migrainosus, not intractable; Cyst of joint of left hand Start: 05-27-2023 End: 05-27-2023 Patient encounter procedure Galilea Whitaker COIL TAPER Work Phone: [facility] Start: 05-27-2023 End: 05-27-2023 Periodic preventive med est patient 40-64yrs Galilea Whitaker COIL TAPER Work Phone: [facility] Comment on above: Annual physical exam (Primary Dx); Essential hypertension; Chronic migraine without aura without status migrainosus, not intractable; Vitamin D deficiency; Vitamin B12 deficiency Start: 04-20-2023 End: 04-20-2023 Emergency department patient visit GALILEA WHITAKER [facility] Work Phone: Start: 02-18-2023 Orders Only Galilea Whitaker COIL TAPER Work Phone: [facility] Comment on above: Herpes labialis (Tanna rusty Dx) Herpes labialis Start: 01-23-2023 End: 01-23-2023 Patient encounter procedure GALILEA NICOLERELL [facility] Work Phone: Start: 01-14-2023 End: 01-14-2023 ambulatory Alida Oewns PT [facility] Comment on above: Pain in joint, multi ple sites (Primary Dx); Benign joint hypermobility syndrome Start: 01-09-2023 ambulatory Austen Lozoya MD Work Phone: Rheumatology Comment on above: Thank you Start: 01-08-2023 End: 01-08-2023 Subsequent hospital visit by physician Rolo [facility] Maria Guadalupe Work Phone: Radiology Comment on above: Benign joint hypermo bility syndrome [M35.7] Start: 11-19-2022 End: 11-19-2022 Office outpatient visit 25 minutes Galilea Whitaker CNP Work Phone: [facility] Comment on above: Arthralgia, unspecif ied joint (Primary Dx); Chronic migraine without aura without status migrainosus, not intractable; Essential hypertension; Fatigue, unspecified type; Generalized hypermobility of joints; Other chronic gastritis without hemorrhage Start: 11-05-2022 Patient encounter procedure Richard Robbins MD Work Phone: [facility] Start: 09-24-2022 End: 09-24-2022 Office outpatient visit 15 minutes Galilea Whitaker CNP Work Phone: [facility] Comment on above: Generalized abdomina l pain (Primary Dx) Start: 05-21-2022 End: 05-21-2022 Patient encounter procedure Galilea Whitaker CNP Work Phone: [facility] Start: 05-21-2022 End: 05-21-2022 Periodic preventive med est patient 40-64yrs Galilea Whitaker CNP Work Phone: [facility] Comment on above: Annual physical exam (Primary Dx); Chronic migraine without aura without status migrainosus, not intractable; Essential hypertension; Vitamin D deficiency; Vitamin B12 deficiency; Vertigo; Psychophysiological insomnia Start: 04-16-2022 Refill Byron serrano MD Work Phone: Neurology Comment on above: Refill Request Start: 04-07-2022 End: 04-07-2022 Emergency department patient visit GALILEA WHITAKER [facility]Emergency [facility] Start: 01-11-2022 End: 01-11-2022 ambulatory Byron Alexander MD Work Phone: Neurology Comment on above: RLS (restless legs s yndrome) (Primary Dx); Chronic insomnia Start: 01-11-2022 End: 01-11-2022 Telemedicine consultation with patient Byron Alexander MD Work Phone: [facility] Start: 12-28-2021 End: 12-28-2021 Patient encounter procedure AGLILEA WHITAKER [facility] Start: 12-28-2021 End: 12-28-2021 ambulatory GALILEA WHITAKER [facility] Work Phone: Start: 12-28-2021 End: 12-28-2021 [facility] Start: 11-19-2021 ambulatory [facility] Comment on above: sleep study update Start: 11-19-2021 E-mail encounter cade magana caregiver [facility] Start: 11-16-2021 End: 11-16-2021 [facility] Start: 11-14-2021 Chart abstracting [facility] Work Phone: Neurology Start: 10-26-2021 Chart abstracting Actigraphy N eur (Hist) Neurology Start: 08-06-2021 End: 08-06-2021 Patient encounter procedure CHARISSA CARRINGTON Work Phone: [facility]-Laboratory, Specimen Start: 08-06-2021 End: 08-06-2021 Patient encounter procedure CHARISSA CARRINGTON Work Phone: [facility] Start: 08-02-2021 End: 08-02-2021 ambulatory Byron Alexander MD Work Phone: Neurology Comment on above: Dream enactment beha vior (Primary Dx) Start: 08-02-2021 End: 08-02-2021 Telemedicine consultation with patient Byron Alexander MD Work Phone: [facility] Start: 07-17-2021 End: 07-17-2021 Patient encounter procedure CHARISSA CARRINGTON Work Phone: [facility] Start: 05-28-2021 End: 05-28-2021 Patient encounter procedure Alida Gregorio APRN.COIL TAPER Work Phone: Cardiology Comment on above: Palpitations (Primar y Dx); Sleep terrors; Primary hypertension Start: 05-15-2021 End: 05-16-2021 ambulatory GALILEA WHITAKER [facility] Start: 05-15-2021 End: 05-15-2021 Patient encounter procedure Galilea Whitaker COIL TAPER Work Phone: [facility] Start: 05-15-2021 End: 05-15-2021 Periodic preventive med est patient 40-64yrs Galilea Whitaker COIL TAPER Work Phone: [facility] Comment on above: Annual physical exam (Primary Dx); Left hip pain; Essential hypertension; Palpitations; Eosinophilic esophagitis; Vitamin D deficiency; Vitamin B12 deficiency Start: 05-08-2021 Telephone encounter Alida Gregorio APRN.COIL TAPER Work Phone: [facility] Comment on above: Results Start: 05-07-2021 End: 05-07-2021 Patient encounter procedure Echocardiogram Wstr Work Phone: Cardiology Comment on above: Palpitations Start: 11-14-2020 End: 11-14-2020 Office outpatient visit 25 minutes Galilea Whitaker COIL TAPER Work Phone: [facility] Comment on above: Essential hypertensi on (Primary Dx); Anemia, unspecified type; Hair loss; Eosinophilic esophagitis; DUB (dysfunctional uterine bleeding) Start: 10-09-2020 Refill Galilea Whitaker COIL TAPER Work Phone: [facility] Comment on above: Chronic migraine wit hout aura without status migrainosus, not intractable Start: 05-12-2020 End: 05-12-2020 Refill Galilea Whitaker Work Phone: [facility] Comment on above: Essential hypertensi on Start: 04-14-2020 End: 04-14-2020 Periodic preventive med est patient 40-64yrs Galilea Whitaker Work Phone: [facility] Comment on above: Annual physical exam (Primary Dx); Environmental and seasonal allergies; Chronic idiopathic constipation; Vitamin D deficiency; Vitamin B12 deficiency; Tinnitus of both ears; Right hip pain Start: 03-17-2020 End: 03-17-2020 Orders Only Galilea Whitaker Work Phone: [facility] Comment on above: Gastroesophageal ref lux disease without esophagitis (Primary Dx) Start: 10-15-2019 End: 10-15-2019 Office outpatient visit 25 minutes Galilea Whitaker Work Phone: [facility] Comment on above: Essential hypertensi on (Primary Dx); Chronic idiopathic constipation; Chronic migraine without aura without status migrainosus, not intractable; Vitamin D deficiency Start: 08-05-2019 End: 08-05-2019 Patient encounter procedure BhaskarWood Robbins Work Phone: [facility] Start: 07-13-2019 End: 07-13-2019 Office outpatient visit 25 minutes Galilea Whitaker Work Phone: [facility] Comment on above: Weight loss (Primary Dx); Skin fissures; Cough; Burning tongue Start: 06-24-2019 End: 06-24-2019 Subsequent hospital visit by physician Galilea Whitaker Work Phone: [facility] Comment on above: Cough; Weight loss Start: 02-26-2019 End: 02-26-2019 Periodic preventive med est patient 40-64yrs Galilea Whitaker Work Phone: [facility] Comment on above: Annual physical exam (Primary Dx); Screening for colon cancer; Family history of GI tract cancer; Vitamin D deficiency; Essential hypertension; Generalized abdominal pain; Vitamin B12 deficiency; Fatigue, unspecified type Start: 02-25-2019 End: 02-25-2019 Subsequent hospital visit by physician Chery Saez Work Phone: [facility] [place] Comment on above: Essential hypertensi on Start: 11-26-2018 End: 11-26-2018 Office outpatient visit 25 minutes Chery Saez Work Phone: [facility] Comment on above: Essential hypertensi on; B12 deficiency; Macrocytosis Start: 10-08-2018 End: 10-08-2018 Patient encounter procedure Chery Rox Se Work Phone: [facility] Comment on above: B12 deficiency (Prim germaine Dx) Start: 10-01-2018 End: 10-01-2018 Office outpatient visit 25 minutes Chery Saez Work Phone: [facility] Comment on above: Malaise and fatigue; Vertigo; Bilateral hearing loss, unspecified hearing loss type; Tinnitus of both ears; Essential hypertension; Chronic migraine without aura without status migrainosus, not intractable Start: 07-30-2018 End: 07-30-2018 Emergency department patient visit Robby Fermin Work Phone: [facility] [place] [facility] Comment on above: Left ovarian cyst (P rimary Dx) Start: 07-16-2018 End: 07-16-2018 Office outpatient visit 15 minutes Galilea Whitaker Work Phone: [facility] Comment on above: Left otitis media, u nspecified otitis media type (Primary Dx); Environmental and seasonal allergies; Vertigo Start: 03-16-2018 End: 03-16-2018 Office outpatient visit 25 minutes Galilea Whitaker Work Phone: [facility] Comment on above: Encounter for preadm ission testing (Primary Dx); Essential hypertension; Patellofemoral arthritis of right knee; Orta's cyst of knee, right; Chronic migraine without aura without status migrainosus, not intractable Start: 11-06-2017 End: 11-07-2017 Patient encounter JACKSON CRUZ [facility] Start: 11-06-2017 End: 11-06-2017 Patient encounter Jackson Cruz Work Phone: [facility] Comment on above: Forearm injury, righ t, initial encounter Start: 11-06-2017 End: 11-06-2017 Office outpatient visit 15 minutes Jackson Cruz Work Phone: [facility] [place] Comment on above: Forearm injury, righ t, initial encounter (Primary Dx); Hematoma Start: 10-14-2017 End: 10-14-2017 Office outpatient visit 15 minutes Galilea Whitaker Work Phone: [facility] Comment on above: Essential hypertensi on (Primary Dx); Chronic pain of right knee; High frequency hearing loss of both ears Start: 05-05-2017 End: 05-05-2017 Ambulatory Roseanna Meehan Work Phone: [facility] Start: 04-10-2017 Prev visit, est, age 40-64 Galilea Whitaker Work Phone: [facility] Start: 10-08-2016 Office/outpatient vi sit, est, level 3 Galilea Whitaker Work Phone: [facility] Procedures Date Procedure Procedure Detail Performing Clinician Start: 05-21-2024 Urnls dip stick/tablet rgnt non-auto w/o micrscp Galilea Whitaker COIL TAPER Work Phone: Start: 05-12-2024 MRI of upper limb No Primary Care Physician Start: 05-12-2024 MRI Galilea Whitaker COIL TAPER Work Phone: Start: 02-14-2024 Complete ultrasound of kidneys and bladder No Primary Care Physician Start: 02-14-2024 CT of abdomen and pelvis without contrast No Primary Care Physician Start: 01-27-2024 End: 01-27-2024 Screening mammography No Primary Care Physician Start: 05-27-2023 Urnls dip stick/tablet rgnt non-auto w/o micrscp Galilea Whitaker COIL TAPER Work Phone: Start: 05-27-2023 Lipid 1996 panel - Serum or Plasma Yung Francis PA-C Work Phone: Start: 04-20-2023 Measurement of occult blood in stool specimen using immunoassay GALILEA WHITAKER Start: 01-23-2023 Screening mammography GALILEA WHITAKER Start: 01-08-2023 Radex hand minimum 3 views Austen Lozoya MD Work Phone: Start: 11-05-2022 Colonoscopy Galilea Sherman CN P Work Phone: Start: 05-21-2022 Urnls dip stick/tablet rgnt non-auto w/o micrscp Galilea Whitaker COIL TAPER Work Phone: Start: 05-21-2022 Lipid 1996 panel - Serum or Plasma Austen Lozoya MD Work Phone: Start: 04-07-2022 CT of face GALILEA WHITAKER Start: 04-07-2022 CT of head without contrast GALILEA DIANE DONAHUE Start: 12-28-2021 End: 12-28-2021 Screening mammography GALILEA WHITAKER Start: 11-14-2021 Actigraphy testing recording analysis i&r Byron Alexander MD Work Phone: Start: 08-01-2021 Adult depression screening assessment Byron Alexander MD Work Phone: Start: 05-15-2021 Urnls dip stick/tablet rgnt non-auto w/o micrscp Galilea Whitaker COIL TAPER Work Phone: Start: 05-07-2021 Echo tthrc r-t 2d w/wom-mode compl spec&colr d Alida E Jocelin CHUNG.COIL TAPER Work Phone: Start: 12-22-2020 Mammography Galilea Sherman OHARA P Work Phone: Start: 04-14-2020 Urinalysis macro (dipstick) panel - Urine Galilea Whitaker Work Phone: Start: 12-15-2019 Microscopic observation [Identifier] in Cervix by Cyto stain Galilea Whitaker Start: 08-05-2019 Colonoscopy Galilea OHARA P Work Phone: Start: 06-24-2019 Standard chest X-ray Galilea Whitaker Work Phone: Start: 03-26-2019 Mammography Richard Robbins Start: 02-26-2019 Urinalysis macro (dipstick) panel - Urine Galilea Teresa Whitaker Work Phone: Start: 02-25-2019 US angiography [...] Phone: Start: 07-30-2018 LIGHT BLUE TOP Robby Romano Fermin Work Phone: Start: 07-30-2018 LIGHT GREEN TOP Robby Romano Fermin Work Phone: Start: 07-30-2018 MINT GREEN TOP Robby Romano Fermin Work Phone: Start: 07-30-2018 RAINBOW DRAW Robby Romano Fermin Work Phone: Start: 03-16-2018 Urinalysis macro (dipstick) panel - Urine Galilea Whitaker Work Phone: Start: 03-16-2018 12 lead ECG Galilea Tran makenzie Sherman Work Phone: Start: 02-20-2018 Mammography Galilea Whitaker [...] 04-07-2032 Tetanus vaccination Tetanus: Every 1 0yrs [facility] Start: 04-07-2032 Urine microalbumin profile DTaP,Tdap,Td Vaccine (3 - Td or Tdap) [facility] Start: 08-04-2029 Screening for malign ant neoplasm of colon [facility] Start: 05-26-2028 Lipid panel Lipid Screening [facility] Start: 11-06-2027 Screening for malign ant neoplasm of colon [facility] Start: 05-22-2027 Lipid 1996 panel - S nikkie or Plasma Lipid Screening [facility] Start: 05-22-2027 Lipid panel Lipid Screening [facility] Start: 02-20-2027 Diabetes Screening Diabetes Screenin [facility] Start: 05-22-2026 Pneumococcal Vaccine : Age 50+ (1 of 1 - PCV) Pneumococcal Vaccine: Age 50+ (1 of 1 - PCV) [facility] Comment on above: Postponed from 11/23 (Not Indicated) Start: 11-19-2025 Diabetes Screening Diabetes Screenin g [facility] Start: 05-21-2025 Administration of he rpes zoster vaccine Zoster Vaccines (1 of 2) [facility] Comment on above: Postponed from 11/23 (Patient Refused) Start: 05-21-2025 COVID-19 Vaccine ( season) COVID-19 Vaccine ( season) [facility] Comment on above: Postponed from 10/11 (Patient Refused) Start: 05-21-2025 History and physical examination, annual for health maintenance Wellness Visit [facility] Start: 04-05-2025 TETANUS EVERY 10 YR TETANUS EVERY 10 YR [facility] Work Phone: Start: 04-05-2025 Tetanus vaccination [facility] Start: 03-11-2025 End: 03-11-2025 Patient encounter procedure 03/11/2025 11:00 AM EST Office Visit [facility] [address] [place] [phone] Galilea Whitaker, COIL TAPER [address] [place] [address] [facility] Start: 01-26-2025 Screening for malign ant neoplasm of breast Mammogram [facility] Start: 12-14-2024 Screening for malign ant neoplasm of cervix [facility] Start: 12-09-2024 Plain X-ray abdomen Abdomen Single V [facility] Start: 12-09-2024 Patient encounter procedure Registered [facility] [place] Work Phone: Start: 12-07-2024 Plain X-ray abdomen Abdomen Single V [facility] Start: 12-07-2024 End: 12-07-2024 Patient encounter procedure Departed [facility] [place] Work Phone: Start: 11-26-2024 DIABETES SCREEN DIABETES SCREEN [facility] Start: 11-26-2024 Diabetes Screening Diabetes Screenin g [facility] Start: 11-20-2024 Depression screening using PHQ-9 (Patient Health Questionnaire 9) score Depression Screening/Follow-Up (PHQ-2/9) [facility] Start: 11-05-2024 End: 11-05-2024 Patient encounter procedure 11/05/2024 11:00 AM EDT Office Visit [facility] [address] [place] [phone] Galilea Whitaker, COIL TAPER [address] [place] [address] [facility] Start: 10-11-2024 COVID-19 Vaccine ( season) COVID-19 Vaccine ( season) [facility] Start: 07-16-2024 End: 07-16-2024 Follow-up encounter 07/16/2024 3:45 PM EDT Follow-Up [facility] [address] [place] [address] Sameera Gonzales MD [address] [place] [phone] [facility] Start: 07-02-2024 End: 07-02-2024 Admission to same day surgery center [facility] Comment on above: Left hand cyst remov al Start: 07-02-2024 End: 07-02-2024 Exc lesion tdn shth/jt capsl hand/fngr [facility] Start: 07-02-2024 Subsequent hospital visit by physician [facility] Start: 06-25-2024 End: 06-25-2024 Patient encounter procedure 06/25/2024 3:15 PM EDT Surgical Consult [facility] [address] [facility] [address] [place] [address] Sameera Gonzales MD [address] [place] [phone] [facility] Start: 06-01-2024 End: 06-01-2024 Patient encounter procedure 06/01/2024 3:15 PM EDT Office Visit [facility] [address] [place] [address] Vania Gunter, COIL TAPER [address] [place] [phone] [facility] Start: 05-26-2024 History and physical examination, annual for health maintenance Wellness Visit [facility] Start: 05-21-2024 End: 05-21-2024 Patient encounter procedure 05/21/2024 1:00 PM EDT Office Visit [facility] [address] [place] [address] Galilea Whitaker, COIL TAPER [address] [place] [address] [facility] Start: 04-19-2024 Screening for malign ant neoplasm of colon Fecal occult blood test (FOBT,FIT) [facility] Start: 04-14-2024 End: 04-14-2024 Patient encounter procedure 04/14/2024 3:00 PM EST Office Visit [facility] [address] [place] [address] Richard Robbins MD [address] [address] [facility] Start: 04-05-2024 End: 04-05-2024 Patient encounter procedure 04/05/2024 3:00 PM EST Office Visit [facility] [address] [phone] Vania Gunter, COIL TAPER [address] [place] [phone] [facility] Start: 03-25-2024 End: 03-25-2024 Patient encounter procedure 03/25/2024 2:15 PM EST Office Visit [facility] [address] [place] [address] Richard Robbins MD [address] [address] [facility] Start: 02-16-2024 Patient discharge [facility] Start: 02-14-2024 Ambulation without limitation [facility] Start: 02-14-2024 Assessment of risk o f venous thromboembolism [facility] Start: 02-14-2024 Incentive spirometry [facility] Start: 02-14-2024 Insertion of cathete r into peripheral vein [facility] Start: 02-14-2024 Measuring intake and output [facility] Start: 02-14-2024 Providing care accor ding to standard [facility] Start: 02-14-2024 Referral to desktop support associate [facility] Start: 02-14-2024 Referral to service [facility] Start: 02-14-2024 [facility] Start: 02-14-2024 Following clinical pathway protocol [facility] Start: 02-14-2024 Admission procedure [facility] Start: 02-14-2024 Patient referral to dietitian [facility] Start: 11-24-2023 Administration of he rpes zoster vaccine Zoster Vaccines (1 of 2) [facility] Start: 11-24-2023 Pneumococcal Vaccine : 50+ (1 of 1 - PCV) Pneumococcal Vaccine: 50+ (1 of 1 - PCV) [facility] Start: 11-24-2023 Pneumococcal Vaccine : Age 50+ (1 of 1 - PCV) Pneumococcal Vaccine: Age 50+ (1 of 1 - PCV) [facility] Start: 11-24-2023 Screening for malign ant neoplasm of colon Flexible sigmoidoscopy [facility] Start: 11-24-2023 Shingrix Vaccine (1 of 2) Driscoll grix Vaccine (1 of 2) [facility] Start: 11-21-2023 End: 11-21-2023 Patient encounter procedure 11/21/2023 1:00 PM EDT Office Visit [facility] [address] [place] [address] Galilea Whitaker, COIL TAPER [address] [place] [address] [facility] Start: 11-20-2023 COVID-19 Vaccine ( season) COVID-19 Vaccine () [facility] Comment on above: Postponed from 10/11 (Patient Refused) Start: 10-12-2023 Covid-19 Vaccine ( season) Covid-19 Vaccine ( season) [facility] Start: 10-12-2023 COVID-19 Vaccine () COVID-19 Vaccine () [facility] Start: 10-12-2023 Influenza vaccination Influenza Vacc ine (#1) [facility] Start: 05-27-2023 End: 05-27-2023 Patient encounter procedure 05/27/2023 10:00 AM EDT Office Visit [facility] [address] [place] [phone] Galilea Whitaker, COIL TAPER [address] [place] [address] [facility] Start: 05-22-2023 COVID-19 Vaccine (3 - Booster for Pfizer series) COVID-19 Vaccine (3 - Booster for Pfizer series) [facility] Comment on above: Postponed from 07/31 (Patient Refused) Start: 05-22-2023 COVID-19 Vaccine (3 - Pfizer series) COVID-19 Vaccine (3 - Pfizer series) [facility] Comment on above: Postponed from 07/31 (Patient Refused) Start: 05-22-2023 History and physical examination, annual for health maintenance Wellness Visit [facility] Start: 04-20-2023 [facility] Start: 01-30-2023 End: 01-30-2023 Patient encounter procedure 01/30/2023 2:00 PM EST Office Visit [facility] [address] [place] [address] Richard Robbins MD [address] [address] [facility] Start: 12-28-2022 Screening for malign ant neoplasm of breast Mammogram [facility] Start: 12-14-2022 Screening for malign ant neoplasm of cervix Pap Smear [facility] Start: 11-19-2022 End: 11-19-2022 Patient encounter procedure 11/19/2022 11:00 AM EDT Office Visit [facility] [address] [place] [phone] Galilea Whitaker, COIL TAPER [address] [place] [address] [facility] Start: 11-05-2022 End: 11-05-2022 Patient encounter procedure [facility] Start: 10-11-2022 Covid-19 Vaccine () Covid-19 Vaccine () [facility] Start: 10-11-2022 Influenza vaccination Influenza Vacc ine (#1) [facility] Start: 10-01-2022 End: 10-01-2022 Patient encounter procedure 10/01/2022 12:30 PM EDT Appointment [facility] [address] [place] [address] [facility] Start: 08-01-2022 Adult depression screening assessment DEPRESSION SCREENING [facility] Start: 05-15-2022 COVID-19 Vaccine (3 - Booster for Pfizer series) COVID-19 Vaccine (3 - Booster for Pfizer series) [facility] Comment on above: Postponed from 11/05 (Patient Refused) Start: 05-15-2022 History and physical examination, annual for health maintenance Wellness Visit [facility] Start: 02-10-2022 DEPRESSION ASSESSMENT DEPRESSION ASS ESSMENT [facility] Start: 12-22-2021 Screening for malign ant neoplasm of breast Mammogram [facility] Start: 11-20-2021 End: 11-20-2021 Patient encounter procedure 11/20/2021 Office Visit Primary Care Galilea Whitaker, COIL TAPER [address] [place] [address] [facility] Start: 10-11-2021 Influenza vaccination C [facility] Start: 08-06-2021 Source specific culture [facility] Work Phone: Start: 08-02-2021 End: 10-02-2021 TOX SCREEN ROUT UR TOX SCREEN ROUT UR Lab Routine Dream enactment behavior Expected: 08/02/2021, Expires: 10/02/[address] [facility] Work Phone: Comment on above: Expected: 08/02/2021 , Expires: 10/02/2021 Start: 06-27-2021 Cytopathology proced ure, preparation of smear, genital source PAP SMEAR [facility] Work Phone: Start: 06-27-2021 Screening for malign ant neoplasm of cervix PAP SMEAR [facility] Start: 05-15-2021 End: 05-15-2021 Patient encounter procedure 05/15/2021 Office Visit Primary Care Galilea Whitaker, COIL TAPER [address] [place] [address] [facility] Start: 04-14-2021 History and physical examination, annual for health maintenance Wellness Visit [facility] Start: 02-10-2021 DEPRESSION ASSESSMENT DEPRESSION ASS ESSMENT [facility] Start: 12-14-2020 History and physical examination, annual for health maintenance Wellness Visit [facility] Start: 11-05-2020 COVID-19 VACCINE (3 - Booster for Pfizer series) COVID-19 VACCINE (3 - Booster for Pfizer series) [facility] Start: 10-17-2020 End: 10-17-2020 Office Visit [facility] Start: 10-11-2020 Influenza vaccination INFLUENZA (#1) [facility] Start: 07-31-2020 COVID-19 VACCINE (3 - Booster for Pfizer series) COVID-19 VACCINE (3 - Booster for Pfizer series) [facility] Start: 04-14-2020 End: 04-14-2020 Office Visit 04/14/2020 Office Visit Primary Care Galilea Whitaker, COIL TAPER [address] [place] [address] [phone] [facility] Start: 03-26-2020 Screening for malign ant neoplasm of breast [facility] Start: 03-26-2020 Screening mamm[facility] Start: 02-27-2020 History and physical examination, annual for health maintenance Wellness Visit [facility] Start: 09-24-2019 End: 09-24-2019 Office Visit 09/24/2019 Office Visit Primary Care Galilea Whitaker, COIL TAPER [address] [place] [address] [phone] [facility] Start: 08-05-2019 End: 08-05-2019 [facility] Visit [facility] Start: 05-28-2019 End: 05-28-2019 Office Visit 05/28/2019 Office Visit Primary Care Galilea Whitaker, COIL TAPER [address] [place] [address] [phone] [facility] Start: 02-26-2019 End: 02-26-2019 Office Visit 02/26/2019 Office Visit Primary Care Galilea Whitaker, COIL TAPER [address] [place] [address] [phone] [facility] Start: 02-20-2019 Screening mammography Mammogram [facility] Start: 11-25-2018 End: 11-25-2018 Office Visit 11/25/2018 Office Visit Primary Care Chery Saez, DO [address] [place] [address] [phone] [facility] Start: 2018 COLOGUARD (FIT-DNA) COLOGUARD (FIT-D NA) [facility] Start: 2018 Colonoscopy COLONOSCOPY [facility] Start: 2018 COLORECTAL CANCER SCREENING COLORECTAL CANCER SCREENING [facility] Start: [address] COLONOGRAPHY [facility] Start: 2018 DIABETES SCREEN DIABETES SCREEN [facility] Start: 2018 FECAL OCCULT BLOOD FECAL OCCULT BLOO D [facility] Start: 2018 LIPID SCREEN LIPID SCREEN [facility] [facility] Start: 2018 Screening for malign ant neoplasm of colon [facility] Start: 2018 SIGMOIDOSCOPY SIGMOIDOSCOPY [facility] Start: 04-10-2018 Adult depression screening assessment DEPRESSION SCREENING (PHQ9) [facility] Start: 04-10-2018 Depression screening using PHQ-9 (Patient Health Questionnaire 9) score DEPRESSION SCREENING (PHQ9) [facility] Start: 04-10-2018 History and physical examination, annual for health maintenance Wellness Visit [facility] Start: 04-10-2018 Screening for substa nce abuse SUBSTANCE ABUSE SCREENING (AUDIT-C) [facility] Start: 04-10-2018 SUBSTANCE ABUSE SCRE ENING (AUDIT-C) SUBSTANCE ABUSE SCREENING (AUDIT-C) [facility] Start: 01-15-2018 End: 01-15-2018 Ambulatory 01/15/2018 Office Visit Primary Care Galilea Whitaker, COIL TAPER [address] [address] [phone] [facility] Start: 10-14-2017 Ambulatory 10/14/2017 Off ice Visit Primary Care Galilea Whitaker, COIL TAPER [address] [address] [place] [phone] [facility] Start: 05-05-2017 Ambulatory 05/05/2017 Roger ointment Radiology Roseanna Meehan, DO [address] [place] [place] [address] [phone] [facility] Start: 04-10-2017 Ambulatory 04/10/2017 Off ice Visit Primary Care Galilea Whitaker, COIL TAPER [address] [address] [phone] [facility] Start: 2013 Mammography [facility] Start: 2013 Screening for malign ant neoplasm of breast Mammogram Screening [facility] Start: 11-24-2003 HPV TESTING HPV TESTING [facility] Start: 1994 PAP TESTING PAP TESTING [facility] Start: 1994 Screening for malign ant neoplasm of cervix Cervical Cancer Screening [facility] Start: 1992 Hepatitis B Vaccine (1 of 3 - 19+ 3-dose series) Hepatitis B Vaccine (1 of 3 - 19+ 3-dose series) [facility] Start: 1992 Urine microalbumin profile DTAP,TDAP,TD (1 - Tdap) [facility] Start: 11-24-1991 ANNUAL PCP TEAM MANAGER ANDROID NORTH DISEASE VISIT ANNUAL PCP TEAM CHRONIC DISEASE VISIT [facility] Start: 11-24-1991 Anxiety Screening Anxiety Screening [facility] Start: 11-24-1991 BP CONTROLLED (<130/80) BP CONTROLLE D (<130/80) [facility] Start: 11-24-1991 Depression Screening Depression Scre ening [facility] Start: 11-24-1991 HEPATITIS C SCREENING HEPATITIS C [facility] Start: 11-24-1991 Hepatitis C screening Hepatitis C [facility] Start: 11-24-1991 HIV SCREENING HIV SCREENING [facility] Start: 11-24-1991 HIV screening HIV Screening [facility] Start: 1989 COVID-19 Vaccine (1 of 2) COVI D-19 Vaccine (1 of 2) [facility] Start: 1989 COVID-19 Vaccine (1) COVID-19 Vaccin e (1) [facility] Start: 1985 Adult depression screening assessment DEPRESSION SCREENING [facility] Start: 1985 COVID-19 Vaccine (1) COVID-19 Vaccin e (1) [facility] Start: 11-24-1983 Ophthalmic examinati on and evaluation OPHTHALMOLOGY EXAM [facility] Start: 1973 Depression screening using PHQ-9 (Patient Health Questionnaire 9) score DEPRESSION SCREENING (PHQ9) [facility] Start: 1973 HEPATITIS B (1 of 3 - 3-dose series) HEPATITIS B (1 of 3 - 3-dose series) [facility] Start: 1973 Hepatitis B Vaccine (1 of 3 - 3-dose series) Hepatitis B Vaccine (1 of 3 - 3-dose series) [facility] Start: 1973 Screening for malign ant neoplasm of colon [facility] ACTIGRAPHY TESTING ACTIGRAPHY TE STING Procedures Routine Dream enactment behavior 1 Occurrences starting 08/02/[address] [facility] Work Phone: Comment on above: 1 Occurrences starti ng 08/02/2021 End: 11-20-2023 ANGEL measurement ANGEL Lab Routine Fatigue, unspecified type Generalized hypermobility of joints 1 Occurrences starting 11/19/2022 until 11/20/2023 [facility] Work Phone: Comment on above: 1 Occurrences starti ng 11/19/2022 until 11/20/2023 ANGEL measurement ANGEL Lab Routine Fatigue, unspecified type Generalized hypermobility of joints 11/19/2022 11:46 AM EDT [facility] End: 04-06-2025 Bacteria identified in Unspecified specimen by Aerobe culture Urine Aerobic Culture Microbiology Routine Urinary frequency 1 Occurrences starting 04/05/2024 until 04/06/2025 [facility] Comment on above: 1 Occurrences starti ng 04/05/2024 until 04/06/2025 End: 02-16-2025 Basic metabolic 2000 panel - Serum or Plasma Basic Metabolic Panel Lab Routine GOPAL (acute kidney injury) 1 Occurrences starting 02/17/2024 until 02/16/2025 [facility] Comment on above: 1 Occurrences starti ng 02/17/2024 until 02/16/2025 End: 10-02-2019 Cobalamin (Vitamin B12) [Mass/Vol] Vitamin B12 Lab Routine Malaise and fatigue 1 Occurrences starting 10/01/2018 until 10/02/2019 [facility] Comment on above: 1 Occurrences starti ng 10/01/2018 until 10/02/2019 Cobalamin (Vitamin B 12) [Mass/Vol] Vitamin B12 Lab Routine Malaise and fatigue 10/01/2018 9:40 AM EDT [facility] End: 05-22-2025 Cobalamin (Vitamin B12) [Mass/volume] in Serum or Plasma Vitamin B12 Lab Routine Vitamin B12 deficiency 1 Occurrences starting 05/21/2024 until 05/22/2025 [facility] Comment on above: 1 Occurrences starti ng 05/21/2024 until 05/22/2025 End: 10-02-2019 Complete blood count with white cell differential, manual CBC and Differential Lab Routine Malaise and fatigue 1 Occurrences starting 10/01/2018 until 10/02/2019 [facility] Comment on above: 1 Occurrences starti ng 10/01/2018 until 10/02/2019 Complete blood count with white cell differential, manual CBC and Differential Lab Routine Malaise and fatigue 10/01/2018 9:40 AM EDT [facility] End: 11-20-2023 Complete blood count with white cell differential, manual CBC and Differential Lab Routine Essential hypertension 1 Occurrences starting 11/19/2022 until 11/20/2023 [facility] Comment on above: 1 Occurrences starti ng 11/19/2022 until 11/20/2023 Complete blood count with white cell differential, manual CBC and Differential Lab Routine Essential hypertension 11/19/2022 11:46 AM [facility] End: 11-21-2024 Complete blood count with white cell differential, manual CBC and Differential Lab Routine Essential hypertension 1 Occurrences starting 11/21/2023 until 11/21/2024 [facility] Work Phone: Comment on above: 1 Occurrences starti ng 11/21/2023 until 11/21/2024 Complete blood count with white cell differential, manual CBC and Differential Lab Routine Essential hypertension 11/21/2023 1:32 PM [facility] End: 05-22-2025 Complete blood count with white cell differential, manual CBC and Differential Lab Routine Annual physical exam 1 Occurrences starting 05/21/2024 until 05/22/2025 [facility] Work Phone: Comment on above: 1 Occurrences starti ng 05/21/2024 until 05/22/2025 End: 10-02-2019 Comprehensive metabolic 2000 panel Comprehensive Metabolic Panel Lab Routine Malaise and fatigue 1 Occurrences starting 10/01/2018 until 10/02/2019 [facility] Comment on above: 1 Occurrences starti ng 10/01/2018 until 10/02/2019 Comprehensive metabo lic 2000 panel Comprehensive Metabolic Panel Lab Routine Malaise and fatigue 10/01/2018 9:40 AM [facility] End: 11-20-2023 Comprehensive metabolic 2000 panel - Serum or Plasma Comprehensive Metabolic Panel Lab Routine Essential hypertension 1 Occurrences starting 11/19/2022 until 11/20/2023 [facility] Comment on above: 1 Occurrences starti ng 11/19/2022 until 11/20/2023 Comprehensive metabo lic 2000 panel - Serum or Plasma Comprehensive Metabolic Panel Lab Routine Essential hypertension 11/19/2022 11:46 AM [facility] End: 11-21-2024 Comprehensive metabolic 2000 panel - Serum or Plasma Comprehensive Metabolic Panel Lab Routine Essential hypertension 1 Occurrences starting 11/21/2023 until 11/21/2024 [facility] Comment on above: 1 Occurrences starti ng 11/21/2023 until 11/21/2024 Comprehensive metabo lic 2000 panel - Serum or Plasma Comprehensive Metabolic Panel Lab Routine Essential hypertension 11/21/2023 1:32 PM [facility] End: 04-06-2025 Comprehensive metabolic 2000 panel - Serum or Plasma Comprehensive Metabolic Panel Lab Routine GOPAL (acute kidney injury) 1 Occurrences starting 04/05/2024 until 04/06/2025 [facility] Work Phone: Comment on above: 1 Occurrences starti ng 04/05/2024 until 04/06/2025 End: 05-22-2025 Comprehensive metabolic 2000 panel - Serum or Plasma Comprehensive Metabolic Panel Lab Routine Annual physical exam 1 Occurrences starting 05/21/2024 until 05/22/2025 [facility] Comment on above: 1 Occurrences starti ng 05/21/2024 until 05/22/2025 End: 11-05-2025 Creatinine [Mass/time] in 24 hour Urine Creatinine, Urine, 24 Hour Lab Routine GOPAL (acute kidney injury) 1 Occurrences starting 11/05/2024 until 11/05/2025 [facility] Work Phone: Comment on above: 1 Occurrences starti ng 11/05/2024 until 11/05/2025 Cytopathology proced ure, preparation of smear, genital source Genital Culture [facility] Work Phone: End: 11-20-2023 Erythrocyte sedimentation rate Sedimentation Rate Lab Routine Fatigue, unspecified type Generalized hypermobility of joints 1 Occurrences starting 11/19/2022 until 11/20/2023 [facility] Comment on above: 1 Occurrences starti ng 11/19/2022 until 11/20/2023 Erythrocyte sediment ation rate Sedimentation Rate Lab Routine Fatigue, unspecified type Generalized hypermobility of joints 11/19/2022 11:46 AM EDT [facility] Exc lesion tdn shth/ jt capsl hand/fngr GANGLIONECTOMY UPPER EXTREMITY Epidermoid cyst of hand [facility] [place] End: 11-20-2023 Ferritin [Mass/volume] in Serum or Plasma Ferritin Lab Routine Fatigue, unspecified type 1 Occurrences starting 11/19/2022 until 11/20/2023 [facility] Comment on above: 1 Occurrences starti ng 11/19/2022 until 11/20/2023 Ferritin [Mass/volum e] in Serum or Plasma Ferritin Lab Routine Fatigue, unspecified type 11/19/2022 11:46 AM EDT [facility] End: 04-05-2025 Hemoglobin A1c/Hemoglobin.total in Blood Hemoglobin A1c Lab Routine Urinary frequency 1 Occurrences starting 04/05/2024 until 04/05/2025 [facility] Comment on above: 1 Occurrences starti ng 04/05/2024 until 04/05/2025 End: 11-20-2023 Iron and Iron binding capacity panel - Serum or Plasma Iron and TIBC Lab Routine Fatigue, unspecified type 1 Occurrences starting 11/19/2022 until 11/20/2023 [facility] Comment on above: 1 Occurrences starti ng 11/19/2022 until 11/20/2023 Iron and Iron bindin g capacity panel - Serum or Plasma Iron and TIBC Lab Routine Fatigue, unspecified type 11/19/2022 11:46 AM EDT [facility] End: 11-20-2024 Iron measurement Iron Study with Ferritin Lab Routine Essential hypertension 1 Occurrences starting 11/21/2023 until 11/20/2024 [facility] Comment on above: 1 Occurrences starti ng 11/21/2023 until 11/20/2024 Iron measurement Iron Study with Ferritin Lab Routine Essential hypertension 11/21/2023 1:32 PM EDT [facility] End: 05-22-2025 Lipid 1996 panel - Serum or Plasma Lipid Panel Lab Routine Annual physical exam 1 Occurrences starting 05/21/2024 until 05/22/2025 [facility] Comment on above: 1 Occurrences starti ng 05/21/2024 until 05/22/2025 End: 11-05-2025 Measurement of thyroperoxidase antibody Thyroid peroxidase antibody (TPO) Lab Routine Weight gain 1 Occurrences starting 11/05/2024 until 11/05/2025 [facility] Comment on above: 1 Occurrences starti ng 11/05/2024 until 11/05/2025 End: 02-16-2025 Microalbumin measurement, urine, quantitative Microalbumin/Creatinine Ratio, UR Random Lab Routine GOPAL (acute kidney injury) 1 Occurrences starting 02/17/2024 until 02/16/2025 [facility] Comment on above: 1 Occurrences starti ng 02/17/2024 until 02/16/2025 End: 10-03-2024 MR Hand - left WO contrast MR Hand Left Without Contrast Imaging Routine Ganglion cyst 1 Occurrences starting 04/05/2024 until 10/03/2024 [facility] Work Phone: Comment on above: 1 Occurrences starti ng 04/05/2024 until 10/03/2024 End: 08-02-2022 MULTIPLE SLEEP LATENCY TEST MULTIPLE SLEEP LATENCY TEST Procedures Routine Dream enactment behavior 1 Occurrences starting 08/02/2021 until 08/02/[address] [facility] Work Phone: Comment on above: 1 Occurrences starti ng 08/02/2021 until 08/02/2022 Patient Education ED Vomiting (A dult) ED Epigastric Pain Uncertain Cause [facility] Work Phone: Patient referral [facility] Work Phone: End: 08-02-2022 PSG WITH EEG (DOUBLE STUDY) PSG WITH EEG (DOUBLE STUDY) Procedures Routine Dream enactment behavior 1 Occurrences starting 08/02/2021 until 08/02/[address] [facility] Work Phone: Comment on above: 1 Occurrences starti ng 08/02/2021 until 08/02/2022 End: 02-16-2025 Renal function 2000 panel - Serum or Plasma Renal Function Panel Lab Routine GOPAL (acute kidney injury) 1 Occurrences starting 02/17/2024 until 02/16/2025 [facility] Work Phone: Comment on above: 1 Occurrences starti ng 02/17/2024 until 02/16/2025 End: 11-20-2023 Rheumatoid factor, quantitative Rheumatoid factor Lab Routine Fatigue, unspecified type Generalized hypermobility of joints 1 Occurrences starting 11/19/2022 until 11/20/2023 [facility] Comment on above: 1 Occurrences starti ng 11/19/2022 until 11/20/2023 Rheumatoid factor, quantitative Rheumatoid factor Lab Routine Fatigue, unspecified type Generalized hypermobility of joints 11/19/2022 11:46 AM EDT [facility] End: 11-19-2023 Thyrotropin [Units/volume] in Serum or Plasma TSH with Reflex Free T4 Lab Routine Fatigue, unspecified type 1 Occurrences starting 11/19/2022 until 11/19/2023 [facility] Comment on above: 1 Occurrences starti ng 11/19/2022 until 11/19/2023 Thyrotropin [Units/volume] in Serum or Plasma TSH with Reflex Free T4 Lab Routine Fatigue, unspecified type 11/19/2022 11:46 AM EDT [facility] End: 11-06-2025 Thyrotropin [Units/volume] in Serum or Plasma TSH Lab Routine Weight gain 1 Occurrences starting 11/05/2024 until 11/06/2025 [facility] Comment on above: 1 Occurrences starti ng 11/05/2024 until 11/06/2025 End: 11-06-2025 Thyroxine (T4) free [Mass/volume] in Serum or Plasma T4, Free Lab Routine Weight gain 1 Occurrences starting 11/05/2024 until 11/06/2025 [facility] Comment on above: 1 Occurrences starti ng 11/05/2024 until 11/06/2025 End: 11-05-2025 Triiodothyronine (T3) Free [Mass/volume] in Serum or Plasma T3, Free Lab Routine Weight gain 1 Occurrences starting 11/05/2024 until 11/05/2025 [facility] Comment on above: 1 Occurrences starti ng 11/05/2024 until 11/05/2025 End: 10-02-2019 TSH Qn TSH with Reflex Free T4 Lab Routine Malaise and fatigue 1 Occurrences starting 10/01/2018 until 10/02/2019 [facility] Comment on above: 1 Occurrences starti ng 10/01/2018 until 10/02/2019 TSH Qn TSH with Reflex Free T4 Lab Routine Malaise and fatigue 10/01/2018 9:40 AM EDT [facility] End: 09-25-2023 Ultrasonography of abdomen US Abdomen Complete Imaging Routine Generalized abdominal pain 1 Occurrences starting 09/24/2022 until 09/25/2023 [facility] Work Phone: Comment on above: 1 Occurrences starti ng 09/24/2022 until 09/25/2023 End: 04-05-2025 Urinalysis Urinalysis with microscopic Lab Routine GOAPL (acute kidney injury) 1 Occurrences starting 04/05/2024 until 04/05/2025 [facility] Comment on above: 1 Occurrences starti ng 04/05/2024 until 04/05/2025 End: 01-27-2020 US angiography of renal artery Ultrasound renal artery duplex, complete Vascular Ultrasound Routine Essential hypertension 1 Occurrences starting 11/26/2018 until 01/27/2020 [facility] Comment on above: 1 Occurrences starti ng 11/26/2018 until 01/27/2020 US angiography of re nal artery Ultrasound renal artery duplex, complete Vascular Ultrasound Routine Essential hypertension 02/25/2019 10:20 AM EST [facility] Vitamin D, 25-hydrox y measurement [facility] End: 05-22-2025 Vitamin D, 25-hydroxy measurement Vitamin D, Total, 25-OH Lab Routine Vitamin D deficiency 1 Occurrences starting 05/21/2024 until 05/22/2025 [facility] Comment on above: 1 Occurrences starti ng 05/21/2024 until 05/22/2025 XR Forearm Right 2 Views XR Fore arm Right 2 Views [id number] Forearm injury, right, initial encounter 11/06/2017 10:25 AM EDT [facility] End: 05-15-2022 XR Hip Left With Pelvis 2-3 Views (Routine) XR Hip Left With Pelvis 2-3 Views (Routine) Imaging Routine Left hip pain 1 Occurrences starting 05/15/2021 until 05/15/2022 [facility] Work Phone: Comment on above: 1 Occurrences starti ng 05/15/2021 until 05/15/2022 XR Hip Left With Pel vis 2-3 Views (Routine) XR Hip Left With Pelvis 2-3 Views (Routine) Imaging Routine Left hip pain 05/15/2021 9:51 AM EDT [facility] Immunizations Immunization Date Immunization Notes Care Provider Fa cility 04-07-2022 tetanus toxoid, reduced diphtheria toxoid, and acellular pertussis vaccine, adsorbed GALILEA SHERMAN [facility] 06-05-2020 Covid (Pfizer) No Primary Ca re Physician [facility] 05-12-2020 Covid (Pfizer) No Primary Ca re Physician [facility] 04-05-2015 tetanus toxoid, reduced diphtheria toxoid, and acellular pertussis vaccine, adsorbed; Translations: [TDAP] Galilea Whitaker [facility] Work Phone: Payers Date Payer Category Payer Self-pay [id number] 2023 [facility] [id number] 2023 Blue Cross Blue Shie ld (Indemnity or Managed Care) - Out of State BCBS OUT OF STATE [facility] [id number] 2023 Unknown [id number] 2020 Private Health Insurance [facility] [id number] 2020-Present [phone] [address] [address] [place] [address] PPO [id number] 2018 Private Health Insurance [employer]ET[employer] A ETNA CHOICE POS/POSII/PREMIER CARE/PREMIER CARE PLUS xxxxxxxxxx 2018-Present xxxxxxxxxx [id number] 2018 Unknown MMO MED MUTUAL S UPERMED PPO [id number] 2018-Present [id number] 2018 Unknown [id number] .2.7.3.199546.315 2018 Unknown [id number]. 1.13.385 .2.7.3.729306.315 2018 Unknown [id number] 2018 Private Health Insurance [id number] Worker's Compensation [id number] .[id number] 2014 Worker's Compensation MINUTE [employer] MGMT [facility] [id number] .[id number] 2014 Unknown [id number] 2.840.1.481536.3.249 .13 2014 Unknown [id number] 2..840.1.849399.3.249 .13 1973 Unknown [id number] 2.840.1.411967.3.579 .2.900 1973 Unknown [id number] 2..840.1.916533.3.579 .2.900 1973 Unknown [id number] 2.16.840.1.261566.3.579 .2.900 1973 Unknown [id number] 2.16.840.1.723402.3.579 .2.903 1973 Unknown [id number] 2.16.840.1.902928.3.579 .2.902 1973 Unknown [id number] 2.16.840.1.987342.3.579 .2.902 1973 Unknown [id number] 2.16.840.1.603414.3.579 .2.903 1973 Unknown [id number] 2.16.840.1.858693.3.579 .2.903 1973 Unknown [id number] 2.16.840.1.991051.3.579 .2.903 1973 Unknown [id number] 2.16.840.1.909077.3.579 .2.903 1973 Unknown [id number] 2..840.1.546667.3.579 .2. 1973 Unknown [id number] 2.840.1.656739.3.579 .2.903 1973 Unknown [id number] 2.840.1.644661.3.579 .2.90 1973 Unknown [id number] 2.840.1.575816.3.579 .2.903 1973 Unknown [id number] 2.840.1.671747.3.579 .2. 1973 Unknown [id number] 2.840.1.709526.3.579 .2.903 1973 Unknown [id number] 2.840.1.248800.3.579 .2.903 1973 Unknown [id number] 2.16.840.1.083608.3.579 .2.903 Unknown [id number] 2.16.840.1.381036.3.579 .2.462 Unknown [id number] 2.16.840.1.314181.3.579 .2.462 Unknown [id number] 2.16.840.1.168713.3.579 .2.462 Unknown [id number] 2.16.840.1.734670.3.579 .2.462 Unknown [id number] 2.16.840.1.920877.3.579 .2.462 Unknown [id number] 2.16.840.1.466129.3.579 .2.462 Unknown [id number] 2.16.840.1.546836.3.579 .2.462 Unknown [id number] 2.16.840.1.792980.3.579 .2.462 Unknown [id number] 2.16.840.1.903296.3.579 .2.462 Unknown [id number] 2.16.840.1.107254.3.579 .2.462 Unknown [id number] 2.16.840.1.996561.3.579 .2.462 Unknown [id number] 2.16.840.1.376579.3.579 .2.462 Unknown [id number] 2.16.840.1.677862.3.579 .2.462 Unknown [id number] 2.16.840.1.938428.3.579 .2.462 Unknown [id number] 2.16.840.1.421465.3.579 .2.462 Social History Date Type Detail Facility Start: 05-05-2017 End: 11-29-2024 Tobacco smoking status [facility] Never smoker [facility] Start: 1975 Sex Assigned At Not on file [employer] Work Phone: Start: 04-22-2014 Alcohol Comment occasional [facility] Start: 10-01-2018 End: 11-05-2024 Alcohol intake Current drinker of alcohol (finding) [facility] Start: 10-01-2018 End: 05-15-2021 History SDOH Food Worry 1 [facility] Start: 02-26-2019 End: 05-15-2021 History SDOH Alcohol Frequency 5 [facility] Start: 03-10-2021 End: 05-21-2022 Exposure to SARS-CoV-2 (event) Not sure [facility] Start: 10-19-2019 End: 10-17-2022 Tobacco use and exposure [facility] used [facility] Start: 04-14-2020 History SDOH Alcohol Frequency 4 [facility] Start: 04-09-2021 History SDOH Alcohol Comment social [facility] Start: 05-15-2021 History SDOH Social Connections Membership 2 [facility] Start: 08-06-2021 End: 04-20-2023 Tobacco smoking status NHIS Unknown if ever smoked [facility] Start: 08-06-2021 Non-smoker [facility] Start: 1975 Sex Assigned At Female [facility] Start: 05-15-2021 End: 11-19-2022 History of Social function [facility] Start: 05-15-2021 End: 11-19-2022 Social connection and isolation panel [facility] Frequency of Communication with Friends and Family Not on file [facility] Do you belong to any clubs or organizations such as religion groups, unions, fraternal or athletic groups, or school groups? No [facility] How often to you hav e a drink containing alcohol? 2-3 time sa week [facility] How many standard drinks containing alcohol do you have on a typical day? 1 or 2 [facility] (I/We) worried wheth er (my/our) food would run out before (I/we) got money to buy more. Never true [facility] Start: 10-14-2017 Gender identity Identifies as female gender (finding) [facility] Start: 10-14-2017 Sexual orientation Heterosexual (fin nohemi) [facility] Are you now , , , , never or living with a partner? [facility] How often do you hav e 6 [...] - these days [OSQ] Not at all [facility] Start: 05-18-2024 [facility] NE[facility]: Highlighted row [facility] Goals Date Patient Goal Desired Activity [...] Facility 02-16-2024 Functional status Ambulates;Up ad liliana [facility] Work Phone: Mental Status Date Assessment Result Facility 02-16-2024 Cognitive function Voice/Name [facility] Work Phone: 04-07-2022 Cognitive function Level Of Cons ciousness Awake;Alert;Appropriate;Follow s Commands [facility] Work Phone: Clinical Notes 10-09-2020 to 12-23-2024 Galilea Whitaker, [facility] - 11/05/2024 11:40 AM EDT Note Date & Type Note Facility 12-23-2024 Note [facility] Medical Records Department [address] [place] [address] History Physical Exam 12/23/24 0716 MR#: [id number] Acct: [id number] Name: TERESA CASH Rep #: [id number] : 1975 49 From: Conrad Friend DO PCP: Galilea Whitaker, DEVELOPMENTAL BEHAVIORAL PHYSICIAN-C Status:[facility] [place]: [place] [address] HPI - General General Date of Admission: 12/23/24 Date of Service: 12/23/24 Chief Complaint: Screening colonoscopy HPI Narrative TERESA CASH, is a 49 F who presents [Chief Complaint: Headache, Dizzy, Nausea Details: - February [...] two of eating with lower abdominal pressure. t. ] [facility] Medical History Wears glasses Alcohol use Arthritis Anemia Back pain Vocal cord dysfunction Non-smoker Colonoscopy planned Sleep paralysis History of Holter monitoring History of echocardiogram Cardiology follow-up encounter Family history of breast cancer Family history of colon cancer in father Family history of bladder cancer Atrophic vaginitis Hot flashes Fatigue Hair loss Chronic gastritis Ganglion cyst Ovarian cyst History of depression Hypertension Home Medications ???Medication ???Instructions ???Recorded ???Last Taken ???Type cholecalciferol (vitamin D3) 250 250 mcg PO QWEEK REPLACEMENT 12/14 Unknown History mcg (10,000 unit) capsule cyanocobalamin (vitamin B-12) 1,000 mcg PO DAILY 12/15/19 Unknow n History 1,000 mcg capsule Held on 12/21/24. Instructions: ON HOLD 12/21/2024 tizanidine 4 mg tablet 0 - 12 mg PO QHS 02/14/24 Unknown History ondansetron 4 mg disintegrating 4 mg PO Q8H PRN PRN Nausea #10 tab s 10/10/24 Unknown Rx tablet bupropion HCl 300 mg 24 hr tablet, 300 mg PO QAM 11/29/24 Unknown H istory extended release (Wellbutrin XL) sodium sul 1.479 gram-potas ch See Rx Instructions PO .COMPLEX Unknown Rx 0.188 gram-magnes sul 0.225 gram #28 tabs tablet (Sutab) magnesium 200 mg tablet 200 mg PO QHS 12/21/24 Unknown His tory olmesartan 40 mg tablet (Benicar) 40 mg PO DAILY 12/21/24 Unknown H istory Allergy/AdvReac Type Severity Reaction Status Date / Time clarithromycin (From Biaxin) Allergy Mild other Verified 12/23/24 06:46 erythromycin base (From Allergy Mild other Verified 12/23/24 06:46 Erythrocin) Family History Mother Bladder cancer Aunt Cancer appendix Father Cancer stomach Suicide Grandmother Cancer abdom. Surgical History H/O hand surgery H/O right knee surgery Hx of appendectomy Social History Smoking Status: Never smoker alcohol intake: current details: social substance use type: does not use caffeine: Yes what type of physical activity do you participate in: walking seatbelt use: always do you feel safe at home: Yes additional social history: Lizabeth- [employer] Patient is retired [employer] Constitutional Constitutional: Denies fatigue, fever(s), poor appetite, weight gain or weight loss Gastrointestinal Gastrointestinal: Denies belching, bloating, change in bowel habits, change in stool character, chewing difficulty, coffee ground emesis, constipation, cramping, diarrhea, dyspepsia, dysphagia, early satiety, excessive flatus, fecal incontinence, heartburn, hematemesis, hematochezia, hemorrhoids, loose stools, melena, nausea, odynophagia, rectal bleeding, tenesmus, vomiting or weight changes Vital Signs Vital Signs Vital Signs: 12/23/24 06:47 12/23/24 06:47 Temperature 97 F L Temperature Source Temporal Pulse Rate 66 Respiratory Rate 16 Respiratory Pattern Normal Blood Pressure 127/79 H Blood Pressure Mean 95 Blood Pressure Source Monitor Blood Pressure Position Semi-Fowlers Blood Pres (more content not included)... [facility] 11-29-2024 Progress note [facility] 11-05-2024 Note Subjective: Patient ID: Teresa Cash [...] BMs. She actually made an appt with [facility] in November. She states polydipsia Relates she typically see's HAT BLOCKER in Nov/Dec States that overall she has [...] is soft. Tenderness (more content not included)... [facility] 11-05-2024 History of Present illness Narrative [...] BMs. She actually made an appt with [facility] in November. She states polydipsia Relates she typically see's HAT BLOCKER in Nov/Dec States that overall she has [...] min Stress: No Stress Concern Present (11/19/2022) [employer] - Occupational Stress Questionnaire [...] tablet, Rfl: 1 documented in this encounter [facility] 10-10-2024 Evaluation note Diagnosis Onset Date Resolution Maxillary sinusitis acute Augus t 2024 9:16am Migraine acute October 10, 025 9:16am Nausea acute October 10, 2 025 9:16am Constipation acute November 8:35am [place] [employer] Work Phone: [phone] Zita Cash comes in today for followup [...] basis. AUTHENTICATED BY SAMEERA GONZALES, ON 07/17/2024 11:56:11[facility]06-07-2025 History of Present illness Narrative* Sameera [...] on a p.r.n. basis. documented in this [id number] NoteSubjective: Patient ID: Teresa Cash is a [...] min Stress: No Stress Concern Present (11/19/2022) [employer] - Occupational Stress Questionnaire [...] fluconazole (DIFLUCAN) 150 M (more content not included)...[facility]05-29-2025 History of Present illness Narrative* Sherman Galilea King, [facility] - 07/08/2024 9:38 AM EDT Subjective: [...] min Stress: No Stress Concern Present (11/19/2022) [employer] - Occupational Stress Questionnaire [...] DAY, Disp: , Rfl: documented in this [id number] Zita Cash comes in today for presurgical [...] patient. AUTHENTICATED BY SAMEERA GONZALES, ON 06/26/2024 11:16:48[facility]05-05-2025 NoteSubjective: Patient ID: Teresa Cash is [...] min Stress: No Stress Concern Present (11/19/2022) [employer] - Occupational Stress Questionnaire [...] 1 % Crea, Apply (more content not included)...[facility] 06-14-2024 History of Present illness Narrative* Galilea Whitaker, [facility] - 06/14/2024 7:45 AM EDT Subjective: [...] min Stress: No Stress Concern Present (11/19/2022) [employer] - Occupational Stress Questionnaire [...] DAY, Disp: , Rfl: documented in this [id number] NoteOPG [address] [facility] [address] [facility] [id number] Chief Complaint Patient presents with Left Hand [...] CYST REMOVAL KNEE SURGERY Right 03/25/2018 Dr. Comisar TONSILLECTOMY as an infant Social History[3] Imaging: MRI left hand: There is a cystlike structure best seen on 15 Series 5 on the Coronal STIR, as well as on the axial 13/8. Otherwise negative exam. Interestingly enough the radiologist from [facility] read this exam as completely normal. Assessment/Plan: [...] min Stress: No Stress Concern Present (11/19/2022) [employer] o (more content not included)...[facility] 06-04-2024 History of Present illness Narrative* Vania Gunter, MYLA - 06/04/2024 12:24 PM EDT [facility] [address] [facility] [address] [facility] [address] Chief Complaint Patient presents with Left Hand - Follow-up Teresa Yoonkenisha returns to the office today to review [...] negative exam. Interestingly enough the radiologist from [facility] read this exam as completely normal. Assessment/Plan: [...] min Stress: No Stress Concern Present (11/19/2022) [employer] - Occupational Stress Questionnaire [...] the Last Year: No documented in this [id number] NoteSubjective: Patient ID: Teresa Cash is a [...] Nephro: 02/17/24- Tanphaichitr- f/u PRN Derm: [facility] [place] [facility] Relates that she is not exercising currently Was admitted to [facility] in January for GOPAL- has seen nephro [...] degrees F (36.6 degrees C) Ht 5' 7.05 Wt 77.1 kg (170 lb) SpO2 97% [...] ear normal. Nose: Nose normal. Mouth/Throat: Lips: [place]. Mouth: Mucous membranes are moist. Pharynx: Uvula [...] Left hip: No deform (more content not included)...[facility] 05-21-2024 History of Present illness Narrative* Galilea Whitaker, [facility] - 05/21/2024 12:09 PM EDT Subjective: [...] Nephro: 02/17/24- Tanphaichitr- f/u PRN Derm: [facility] [place] [facility] Relates that she is not exercising currently Was admitted to [facility] in January for GOPAL- has seen nephro [...] 74 Temp97.9 F (36.6 C) Ht 5' 7.05 Wt 77.1 kg (170 lb) SpO2 97% [...] ear normal. Nose: Nose normal. Mouth/Throat: Lips: [place]. Mouth: Mucous membranes are moist. Pharynx: Uvula [...] min Stress: No Stress Concern Present (11/19/2022) [employer] - Occupational Stress Questionnaire [...] Orally, Disp: , Rfl: documented in this [id number] [address]OPG [address] [facility] [address] [facility] [address] Chief Complaint Patient presents with Left Hand [...] min Stress: No Stress Concern Present (11/19/2022) [employer] - Occupational Stress Questionnaire [...] trouble swallowing. Eyes: Neg (more content not included)...[facility] [id number] History of Present illness Narrative* Vania Gunter, COIL TAPER - 04/06/2024 3:50 PM EST Images from the original note were not included. [facility] [address] [facility] [address] [facility] [address] Chief Complaint Patient presents with Left Hand [...] min Stress: No Stress Concern Present (11/19/2022) [employer] - Occupational Stress Questionnaire [...] discuss further treatment options. documented in this [id number] NoteHNO ID: [id number] Author: YUNG FRANCIS PA-C Service: ? Author Type: Physician Bulb Packer Type: Progress Notes Filed: 04/01/2024 10:59 Note Text: Yung Francis PA-C [facility] [address] [place] [address] 04/01/2024 ASSESSMENT AND PLAN: Assessment : Encounter [...] supervised PT next and she could consider animal care service worker or osteopathic neuromuscular treatment in the future [...] today with this patient visit. This includes ziwi-yo-lnnz time, review of chart records regarding conservative care history, spine-pertinent imaging, and communication/care coordination with referring provider, problem-specific history-taking and counseling/education regarding treatment options. cc: SELF Phone: N/A Fax: Results of consultation to be transmitted via electronic medical record for those providers who practice within [facility] or with access to [employer] via MD Connect, or via letter. ######################################################################## [...] Has a lot of tightness. 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 Yung Francis PA-C [facility] [address] [address] 04/01/2024 ASSESSMENT AND PLAN: Assessment : Encounter [...] supervised PT next and she could consider animal care service worker or osteopathic neuromuscular treatment in the future [...] today with this patient visit. This includes ujib-be-iwtz time, review of chart records regarding conservative care history, spine- pertinent imaging, and communication/care coordination with referring provider, problem-specific history-taking and counseling/education regarding treatment options. cc: SELF Phone: N/A Fax: Results of consultation to be transmitted via electronic medical record for those providers who practice within [facility] or with access to [employer] via MD Connect, or via letter. ######################################################################## [...] Has a lot of tightness. 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: Medication(s): She has tried the [...] 144/88, pulse 68, height 172.7 cm (5' 8), weight 76.8 kg (169 lb 5 oz), [...] L: 5/5 Triceps R: 5/5 L: 4/5 Permanent Mold Supervisor R: 5/5 L: 5/5 Interossei R: 5/5 [...] STUDIES: See discussion above [facility] Medical Records Department [address] [place] [address] Discharge Summary 02/16/24 1059 MR#: [id number] Acct: [id number] Name: TERESA CASH Rep #: [id number] : 1975 48 From: Ilya Peña MD PCP: GALILEA WHITAKER Status:ADM IN Location: [facility] [id number] Providers Date of Admission: 02/14/24 Primary Care [...] who presented to the emergency department at [facility] on 02/14/2024 with a chief complaint of [...] and abdominal pain/essential HTN??? (more content not included)...[facility]12-17-2024 Evaluation note* Diagnosis Onset Date Resolution Status Admit Date Atrophic vaginitis inactive [facility] er 2023 8:27am Family history of bladder cancer inactive January 26, 2 024 8:27am Family history of breast cancer inactive January 26 024 8:27am Family history of colon cancer in father inactive January 27, 2024 8:27am Fatigue inactive January 27, 2024 8:27am Encounter for routine gynecological examination noneactive [facility] er 2023 8:27am GOPAL (acute kidney injury) acute February 14, 2024 4:05am Flank pain acute February 13, 2 025 4:05am Proteinuria acute February 14, 2024 4:05am [facility] Work Phone: [phone] 352-172010-11-2024 History of Present illness Narrative* Galilea Whitaker, [facility] - 11/21/2023 1:09 PM EDT Subjective: Patient ID: Teresa Cash is a 47 y.o. female. HPI Teresa presents today for chronic disease management Relates that she did get the call about TDaP from 2015, she does not wish to redo this [...] min Stress: No Stress Concern Present (11/19/2022) [employer] - Occupational Stress Questionnaire [...] Not difficult at all documented in this [id number] History of Present illness Narrative* Galilea Whitaker CNP - 05/27/2023 10:38 AM EDT Subjective: Patient ID: Teresa Cash is a 47 y.o. female. PERCY Moore presents today for CPE: Last Colonoscopy : 11/05/22 Tzagournis- repeat 5 years Last Mammogram : 2022- [place] Last PAP : 12/15/19 Marcanthony Last Stress Test: 02/07/16 normal Immunizations: TDaP: 04/07/22 COVID: 05/12/20, 06/05/20 declines Last CXR: 06/24/19 Optho: [facility] Dentist: Q6 months GI: Tzagournis 01/30/23- f/u 1 year Rheum: [facility] 01/08/23- recommended PT- went once Derm: Luis Relates that she is doing well. She has actually returned to working- working at [employer] and really enjoying it She continues to [...] min Stress: No Stress Concern Present (11/19/2022) [employer] - Occupational Stress Questionnaire Feeling of Stress : Not at all Social Connections: Socially Isolated (11/19/2022) Social Connection and Isolation Panel [NHANES] Frequency of Communication with Friends and Family: Never Frequency of Social Gatherings with Friends and Family: Never Attends Episcopal Services: Never Active Member of Clubs or [...] Temp 97.9 F (36.6 C) Ht 5' 6.93 Wt 66.2 kg (146 lb) SpO2 97% [...] ear normal. Nose: Nose normal. Mouth/Throat: Lips: [place]. Mouth: Mucous membranes are moist. Pharynx: Uvula [...] Discussed preventative needs and immunizations. labs today. HAT BLOCKER for PAP and Mammo Orders: - CBC [...] and continuity over time. documented in this [id number] History of Present illness Narrative* Alida Owens, PT - 01/14/2023 5:24 PM EST Program_ID:[id number] Access Code: [email or web address] URL: [email or web address]/ Date: 01-14-2023 Prepared By: Alida Owens Program [...] Owens, PT - 01/14/2023 4:06 PM EST Program_ID:[id number] Access Code: [email or web address] URL: [email or web address]/ Date: 01-14-2023 Prepared By: Alida Owens Program [...] of Care: created on 01/14/23 through 02/18/23 [place] in home exercise program. Patient will demonstrate [...] Planned: 5 Planned Treatment Interventions: Therapeutic exercise (30837), Neuromuscular re- education (63317), Manual therapy (51355), Therapeutic activities (69539), Self- fdc management (93656), Gait Training (01096) PLAN FOR NEXT VISIT: progress to added [...] Learning TREATMENT: PT Treatment Interventions: Therapeutic Exercise, Self-Usp Management Evaluation Therapeutic Exercise: 1: *Access Code: [email or web address] URL: [email or web address]/ Date: 01/14/2023 Prepared by: Alida Grullon Exercises [...] and function . Patient education as noted. Self-Usp Management: 1: discussed hip strengthening as it [...] 1538 Session Stop Time : 1623 Alida Owens PT documented in [facility] History of Present illness Narrative* Alyce Diaz RT(R) - 01/08/2023 1:30 PM EST Radiology [...] 08, 2023 1:13 PM documented in this encounterL[facility]10-[facility] History of Present illness Narrative* Galilea Whitaker, [facility] - 11/19/2022 11:14 AM EDT Subjective: [...] min Stress: No Stress Concern Present (11/19/2022) [employer] - Occupational Stress Questionnaire Feeling of Stress : Not at all Social Connections: Socially Isolated (11/19/2022) Social Connection and Isolation Panel [NHANES] Frequency of Communication with Friends and Family: Never Frequency of Social Gatherings with Friends and Family: Never Attends Episcopal Services: Never Active Member of Clubs or [...] labs today and will place referral to [facility] rheumatology Chronic migraine without aura [...] Not difficult at all documented in this [id number] History of Present illness Narrative* Galilea Whitaker CNP - 09/27/2022 4:26 PM EDT Subjective: Patient ID: Teresa Cash is a 46 y.o. female. PERCY Moore presents today for acute concerns Relates that she has been having intermittent pain after eating for some time- doesn't always happen. About 2 weeks ago she was out with her - they had dinner and shared a bottle of wine. On the drive home she had to pullman conductor and let her drive because her pain [...] US Abdomen Complete; Future documented in this [id number] History of Present illness Narrative* Galilea Whitaker CNP - 05/21/2022 1:10 PM EDT Images from the original note were not included. Subjective: Patient ID: Teresa Cash is a 46 y.o. female. PERCY Moore presents today for CPE: Last Colonoscopy : 08/05/19 Tzagournis- repeat 3 years- will contact them to schedule Last Mammogram : 12/28/21 [place] Last PAP : Marcanthony- UTD Last Stress Test: echo 05/07/21- EF 71% normal Immunizations: TDaP: 04/07/22 COVID: 05/12/20, 06/05/20, declines FLU: allg Last CXR: 06/24/19- normal Optho: [facility] Dentist: Q6 months Sleep: Dr. Alexander 01/11/22- [...] she did not follow up with that fish hatchery specialist- going to look for new provider close [...] canal reddened Nose: Nose normal. Mouth/Throat: Lips: [place]. Mouth: Mucous membranes are moist. Pharynx: Uvula [...] needs and immunizations. Labs today. Pap through HAT BLOCKER Orders: - CBC and Differential; Future - [...] continue PRN Meclizine. recommend establishing with new fish hatchery specialist. Orders: - meclizine (ANTIVERT) 25 mg tablet; Take 1 (one) tablet (25 mg total) by mouth 3 (three) times a day as needed . - Magnesium Level; Future Psychophysiological insomnia Comments: Following consistently with sleep med- self weaned off of gabapentin- will follow with sleep med for next plan- continue tizanidine. documented in this [id number] Miscellaneous Notes* Telephone Encounter - Marleny Fuller [...] Yes Marleny Fuller MA documented in this encounterL[facility]02-[facility] Hospital Discharge instructions Additional Instructions Have your sutures removed in 5 to 7 days. Make sure you ice your lip.[facility] Work Phone: 1(994) 292-746212-02-2022 Instructions* Patient Instructions* Byron Alexander MD - [...] improved Byron Alexander MD documented in this encounterLake[facility]12-02-2022 History of Present illness Narrative* Byron Alexander MD - 01/11/2022 11:30 AM EST Images from the original note were not included. [facility] Follow up/ [...] followed by MSLT. Those results will follow. intermediate school teacher treatment will depend on these results and [...] or near accidents due to drowsy drivin Welch Sleepiness Scale 08/01/2021 01/11/2022 Score 3 (No [...] improved Byron Alexander MD documented in this encounterLakehealth [facility] Center10-05-2022 Procedure note* Raeann Gutierrez, PhD - 11/14/2021 [...] Circadian Rhythm appropriate. Procedure: Actigraphy (CPT code 29544) Reason for study: hypersomnia-MSLT planned Length of [...] estimated by actigraphy (for sleep onset latency) [place] : Raeann Gutierrez, PhD, [facility] Psychologist ([place] License [id number]) Behavioral Sleep Medicine Disclosure: There are limitations of actigraphy data. This test is not a measure of daytime sleepiness or insomnia. Findings may suggest the etiology of sleepiness due to an observed pattern or help in the understanding of patterns associated with conditions being evaluated documented in this encounterLakehealth [facility] Center10-05-2022 History of Present illness Narrative* Aubrey Michaels [facility] - 11/14/2021 3:24 AM EDT Sleep Study Check-In Documentation Date: November 14, 2021 Name: Teresa Cash Patient was accompanied by Self. Location: Latex allergy: No Tape allergy: No Current medications were reviewed with the patient:Yes Sleep aid taken by patient for the sleep study: Tavares of sleep aid: Not Applicable Procedure was explained to the patient and all questions were answered. PAP treatment discussed and shown to patient: Yes Knowledge Program (KP): KP was not completed in [facility] by patient and accepted Study type: Double study-Polysomnogram with extra EEG Adverse Event: No (If yes create a new abstract) SERS Event: No Comments: Patient was advised to follow up with their ordering provider regarding test results Aubrey Argueta documented in this encounterLakehealth [facility] Center09-16-2022 History of Present illness Narrative* Snow Castro - 10/26/2021 3:25 PM EDT ACTIGRAPHY DEVICE # [id number] Date shipped out 10/26/2021 [employer] MAIL OUT TRACKING NUMBER [id number] [employer] RETURN TRACKING NUMBER [id number], Gina documented in this encounterLakehealth [facility] Center06-23-2022 History of Present illness Narrative* Byron Alexander MD - 08/02/2021 11:05 AM EDT Images from the original note were not included. [facility] New Patient Evaluation PATIENT NAME: Teresa Cash DATE OF SERVICE: August 02, 2021 CONSULTING PROVIDER: Judson Newman MD [address] [facility] [address] [address] CC: Night terrors HPI: Teresa Cash is [...] 08/01/2021 Physical T-Score 39.8 Mental T-Score 50.8 Welch Sleepiness Scale Sitting and Reading? slight chance [...] followed by MSLT. Those results will follow. [facility] treatment will depend on these results and will likely include Behavioral Sleep Medicine. Byron Alexander MD documented in this encounterL[facility] Instructions* Patient Instructions* Alida Gregorio APRN.COIL TAPER - 05/28/2021 4:07 PM EDT Heart Disease in Women Is heart disease a problem for women? Heart disease is the leading cause of of [place] women. More women from heart disease than [...] disease. You can get more information from: [place] Heart Lccqndhcauk6-587-KAG-USA-1 ( )www.heart.org Developed by [employer]. Published by [employer]. Copyright 2014 [employer] and/or one of its subsidiaries. All rights reserved. documented in this encounterLake[facility]04-18-2022 History of Present illness Narrative* Alida Gregorio [...] injection (DEFINITY) INTRAVENOUS DIRECTED PRN Alida Gregorio APRN.COIL TAPER sodium chloride 0.9 % (flush) 10 mL (BD POSIFLUSH) 10 mL INTRAVENOUS DIRECTED PRN Alida Gregorio APRN.COIL TAPER Review of Systems Constitutional: Negative for chills, [...] 28, 2021, 3:32 PM documented in this encounterLake[facility]04-05-2022 History of Present illness Narrative* Galilea Whitaker, MYLA - 05/15/2021 1:53 PM EDT Subjective: Patient ID: Teresa Cash is a 45 y.o. female. PERCY oMore presents today for CPE: Last Colonoscopy : 08/05/19 Dr Robbins- repeat 3 years Last Mammogram : done at [facility] fall Last PAP : 01/04/20- Dr. Chase- normal Last Stress Test: 05/07/21- normal echo Immunizations: TDaP: 04/05/15 COVID: 05/12/20, 06/05/20, declines booster FLU: allergy Last CXR: 06/24/19- normal Optho: [facility] Dentist: Q6 months GI: Dr. Robbins in [place], Dr. Monte in [place] [facility]- appt next week, had echo [...] 59 Temp 97.8 F (36.6 C) Ht 5'7.13 Wt 78.7 kg (173 lb 6.4 oz) [...] ear normal. Nose: Nose normal. Mouth/Throat: Lips: [place]. Mouth: Mucous membranes are moist. Pharynx: Uvula [...] Discussed preventative needs and immunizations. Labs today. HAT BLOCKER for pap and mammo- will get records. [...] mouth daily . Palpitations Comments: [facility] and recent full cardiac exam- seeing this week- all testing benign Orders: - Magnesium Level; Future - TSH with Reflex Free T4; Future Eosinophilic esophagitis Comments: Is established with GI and [employer] Set Up Operator- symptoms are improved at this time. Vitamin D deficiency Comments: checking levels and will adjust plan as appropriate Orders: - Vitamin D, Total, 25-OH; Future Vitamin B12 deficiency Comments: checking levels and will adjust plan as appropriate Orders: - Vitamin B12; Future documented in this [id number] Miscellaneous Notes* Telephone Encounter - Caro Tristan [...] AM EDT Left message for to call [facility] for test results. [facility] phone number provided. Alida Martinez LPN * Telephone Encounter - Alida Martinez LPN - 05/08/2021 7:14 AM EDT ----- Message from Alida Gregorio APRN.CNP sent at 05/07/2021 9:43 PM EDT ----- Please call patient and notify her monitor was without significant arrhythmia. Thank you! documented in this encounterLake[facility] Center03-28-2022 Miscellaneous Notes* Result QuickNote - Alida Gregorio APRN.CNP - 05/07/2021 9:38 PM EDT Please call patient and notify her echocardiogram is with grossly normal structure and function. Thank you! 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 She has been very fatigued, to the point of exhaustion, needing multiple naps. She also has had a lot of hair loss. She was treated by her insurance teledoc [...] Friends and Family: Not on file Attends Episcopal Services: Not on file Active Member of [...] tenderness or frontal sinus tenderness. Mouth/Throat: Lips: [place]. Pharynx: Oropharynx is clear. Eyes: General: Lids [...] increased vaginal bleeding- has been following with HAT BLOCKER Orders: - CBC and Differential; Future - [...] DUB (dysfunctional uterine bleeding) Comments: Established with HAT BLOCKER and has had biopsy, which was benign- declined further hormone tx- documented in this [id number] Miscellaneous Notes* Telephone Encounter - Bonnie Vazquez [...] EDT ----- Regarding: Rx Refill Contact: [facility] MEDICATION REFILL REQUEST: PCP: Galilea Whitaker [...] preferred pharmacy listed below? Yes Preferred pharmacies: [facility]/pharmacy #[id number] [phone] Pt Call Back Number Patient call back message sent to the primary care clinical pool. Jamie Chávez . documented in this encounterOhioHealthEvaluation note* Diagnosis Chronic migraine without aura without status migrainosus, not intractable [facility]* Diagnosis Essential hypertension- Primary Unspecified essential hypertension Anemia, unspecified type Hair loss Unspecified alopecia Eosinophilic esophagitis DUB (dysfunctional uterine bleeding) Other disorder of menstruation and other abnormal bleeding from female genital tract documented in this encounter [facility]* Diagnosis Palpitations documented in this encounter [facility] note* Diagnosis Annual physical exam- Primary Routine general medical examination at a health care facility Left hip pain Pain in joint, pelvic region and thigh Essential hypertension Unspecified essential hypertension Palpitations Eosinophilic esophagitis Vitamin D deficiency Vitamin B12 deficiency Other B-complex deficiencies [facility] Diagnosis Palpitations- Primary Sleep terrors Sleep arousal disorder Primary hypertension Unspecified essential hypertension documented in this encounter [facility] note* Diagnosis Dream enactment behavior- Primary documented in this encounter [facility] note* Diagnosis Onset Date Resolution Status Acute pharyngitis acute [facility] Work Phone: Evaluation note* Diagnosis Hypersomnia- Primary Hypersomnia, unspecified documented in this encounter [facility] note* Diagnosis Onset Date Resolution Status Acute sinusitis acute COVID-19 acute Adenomyosis acute Pelvic pain chronic Encounter for routine gynecological examination noneactive [facility] Work Phone: Evaluation note* Diagnosis RLS (restless legs syndrome)- Primary Restless legs syndrome (RLS) Chronic insomnia Insomnia, unspecified documented in this encounter [facility] note* Diagnosis Onset Date Resolution Status Adenomyosis acute Pelvic pain chronic Encounter for routine gynecological examination noneactive [facility] Work Phone: Evaluation note* Diagnosis Annual physical exam- Primary Routine general medical examination at a health care facility Chronic migraine without aura without status migrainosus, not intractable Essential hypertension Unspecified essential hypertension Vitamin D deficiency Vitamin B12 deficiency Other B-complex deficiencies Vertigo Dizziness and giddiness Psychophysiological insomnia Persistent disorder of initiating or maintaining sleep documented in this encounter [facility] note* Diagnosis Generalized abdominal pain- Primary Abdominal pain, generalized [facility]* Diagnosis Arthralgia, unspecified joint- Primary Chronic migraine without aura without status migrainosus, not intractable Essential hypertension Unspecified essential hypertension Fatigue, unspecified type Generalized hypermobility of joints Other chronic gastritis without hemorrhage documented in this encounter [facility] note* Diagnosis Pain in joint, multiple sites- Primary Benign joint hypermobility syndrome [facility] Diagnosis Herpes labialis- Primary Herpes simplex without mention of complication [facility] Diagnosis Herpes labialis Herpes simplex without mention of complication [facility]* Diagnosis Onset Date Resolution Status [id number] noneactive [facility] Work Phone: Evaluation note* Diagnosis Annual physical exam- Primary Routine general medical examination at a health care facility Essential hypertension Unspecified essential hypertension Chronic migraine without aura without status migrainosus, not intractable Vitamin D deficiency Vitamin B12 deficiency Other B-complex deficiencies [facility]* Diagnosis Benign joint hypermobility syndrome Pain in joint, multiple sites [facility]* Diagnosis Essential hypertension- Primary Unspecified essential hypertension Chronic constipation Unspecified constipation Chronic migraine without aura without status migrainosus, not intractable Cyst of joint of left hand [facility] Diagnosis Atypical chest pain- Primary Other chest pain Chest pain, unspecified type Palpitations PVC's (premature ventricular contractions) Other premature beats PVC (premature ventricular contraction) Other premature beats Chronic migraine without aura without status migrainosus, not intractable [facility] Diagnosis Atypical chest pain- Primary Other chest pain Chest pain, unspecified type Palpitations PVC's (premature ventricular contractions) Other premature beats PVC (premature ventricular contraction) Other premature beats GOPAL (acute kidney injury)- Primary [facility]* Diagnosis Chronic left shoulder pain- Primary Pain in joint, shoulder region Cervical spondylosis without myelopathy documented in this encounter [facility] note* Diagnosis Atypical chest pain- Primary Other chest pain Chest pain, unspecified type Palpitations PVC's (premature ventricular contractions) Other premature beats PVC (premature ventricular contraction) Other premature beats GOPAL (acute kidney injury)- Primary Urinary frequency [facility] Diagnosis Atypical chest pain- Primary Other chest pain Chest pain, unspecified type Palpitations PVC's (premature ventricular contractions) Other premature beats PVC (premature ventricular contraction) Other premature beats Ganglion cyst- Primary Unspecified ganglion [facility]* Diagnosis Atypical chest pain- Primary [...] mention of complication [facility]* Diagnosis Onset Date Resolution Status Admit Date Maxillary sinusitis acute Aug2024 9:16am Migraine acute October 10, 2 025 9:16am Nausea acute October 10, 2 025 9:16am [facility] Work Phone: Evaluation note* Diagnosis Atypical chest [...] metabolism, and development documented [facility] this encounter [facility] Author Paola Heath [facility] Note Date/Time November 29, 2024 1 0:14am [facility] [address] [place] [address] OFFICE VISIT Date of Service: 11/29/24 MR#: [id number] Acct: [id number] Name: TERESA CASH Rep #: [id number] : 1975 Provider: LAMAR Heath Age/Sex: 49/F Location: [facility] Status: Signed Intake Vital Signs 10/10/24 09:44 [...] GASTRITIS Chief Complaint: Headache, Dizzy, Nausea Manager Lpn Required: No Accompanied by: Self Is patient [...] at home: Yes additional social history: 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 [...] and overweight Orientation: alert and oriented x3 [facility] Head: normocephalic Ears: hearing grossly normal bilaterally [...] K59.01 Constipation type: slow transit constipation Comment 64078 Clinical Quality Measures Smoking Screening Smoking Status: Never smoker 11/29/24 2735 <Electronically signed by Paola NEWTON> Date _ Paola NEWTON Cosigner Signature: Date (if applicable) CC: ~ [place] Verified Identity Pass [facility] Work Phone: Reason for referral (narrative)* Diagnostic Procedure Only (Routine) - Pending Review Specialty Diagnoses / Procedures Referred By Contac t Referred To Contact [facility] [place] Diagnoses Dream enactment behavior Procedures MULTIPLE SLEEP LATENCY TEST BERRY PICKER SLEEP LATENCY/MAINT OF WAKEFULNESS TSTG Byron Alexander MD [address] [place] [address] [facility] [place] [address] [place] [id number] Referral ID Status Reason Start Date Expiration Date Visits Requested Visits Authorized [id number] Pending Review Auto-Generat ed Referral 08/02/2021 08/02/2022 1 1 [facility] for referral (narrative)* Diagnostic Procedure Only (Routine) - Closed Specialty Diagnoses / Procedures Referred By Contac t Referred To Contact XR IMAGING Diagnoses Benign joint hypermobility syndrome Pain in joint, multiple sites Procedures XR HAND GENERAL 3V PA/LAT/OBL BILATERAL RADEX HAND MINIMUM [address] [place] [address] [place] [address] Xr Imaging [place] [address] Referral ID Status Reason Start Date Expiration Date V isits Requested Visits Authorized [id number] Closed Auto-Generate d Referral 01/08/2023 02/07/2024 1 1 [facility] for referral (narrative)No reason for referral information [facility] Work Phone: Reason for visit Narrative* Outpatient Procedure (Routine) - Closed Specialty Diagnoses / Procedures Referred By Contac t Referred To Contact [facility] Diagnoses Palpitations Procedures ECHO ECHO TTHRC R-T 2D W/WOM-MODE COMPL SPEC&COLR D Alida Gregorio, AGRIBUSINESS INTERNSHIP.COIL TAPER [address] [place] [address] [facility] [place] [address] [place] [address] Referral ID Status Reason Start Date Expiration Date V isits Requested Visits Authorized [id number] Closed Auto-Generate d Referral 04/09/2021 04/09/2022 1 1 [facility] Assessments Diagnosis Visit for screening [...] swelling below the affected area. Take an sbgl-xvd-fgjnoch pain medicine, such as acetaminophen (Tylenol), ibuprofen [...] Log into your personal health record on [email or web address] and enter P911 in the Education box to learn more about Hematoma: Care Instructions. Current as of: December 30, 2016 Content Version: 11.6 [id number] [employer]. Care instructions adapted under license by your healthcare professional. If you have questions about a medical condition or this instruction, always ask your healthcare professional. [employer] disclaims any warranty or liability for your use of this information. in this encounter* Patient Instructions* Galilea Whitaker CNP - 02/26/2019 8:45 AM EST Please let me know if you do not hear to schedule your colonoscopy in the next 2 weeks! Make sure you tell them you want to do it at the [facility]. Please try a probiotic daily. I would [...] Documents on File Type Date Recorded Patient Health Data Analyst Expl anation Advance Directives and Livin g Will 07/30/2018 7:39 AM Latest Code Status on File Code Status Date Activated Date Inactivated Comments Full Code 01/15/2016 11:17 PM 01/16/2016 6:45 PM Documents on File Type Date Recorded Patient Health Data Analyst Expl anation Advance Directives and Livin g Will 02/25/2019 8:44 AM Documents on File Type Date Recorded Patient Health Data Analyst Expl anation Advance Directives and Livin g Will 06/24/2019 10:30 AM Documents on File Type Date Recorded Patient Health Data Analyst Expl anation Advance Directives and Livin g Will 03/26/2019 10:45 AM Documents on File Type Date Recorded Patient Health Data Analyst Expl anation Advance Directives and Livin g Will 10/15/2019 2:00 PM Documents on File Type Date Recorded Patient Health Data Analyst Expl anation Advance Directives and Livin g Will 07/30/2018 7:39 AM Documents on File Type Date Recorded Patient Health Data Analyst Expl anation Advance Directives and Livin g Will 02/20/2018 11:11 AM Documents on File Type Date Recorded Patient Health Data Analyst Expl anation Advance Directives and Livin g Will 05/15/2021 9:37 AM Advance Directive Response Recorded Date/ Time Living Will No August 06, 2021 8:12am Power of Slitter And Rewinder No August 06 8:12am Advance Directive Response Recorded Date/ Time Living Will No August 06, 2021 7:12am Power of Slitter And Rewinder No August 06 7:12am Advance Directive Response Recorded Date/ Time Living Will No April 07, 023 5:13pm Power of Slitter And Rewinder No April 07, 2022 5:13pm Latest Code Status on File Code Status Date Activated Date Inactivated Comments Full Code 01/15/2016 11:17 PM 01/16/2016 6:45 PM Latest Code Status on File Code Status Date Activated Date Inactivated Comments Full Code 01/15/2016 11:17 PM 01/16/2016 6:45 PM Advance Directive Response Recorded Date/ Time Name of Medical Power of Slitter And Rewinder lizabeth sylwia April 20, 2023 11:20am Living Will Yes April 20, 2023 11:20am Power of Slitter And Rewinder Yes April 19 11:20am Date Activated Date Inactivated Comments 01/15/2016 11:17 PM 01/16/2016 6:45 PM Date Activated Date Inactivated Comments 01/15/2016 11:17 PM 01/16/2016 6:45 PM Advance Directive Response Recorded Date/ Time Living Will Yes February 13 6:00am Do you have a Healthcare Power of Slitter And Rewinder? Yes Jenifer 4th, 2025 6:00am Name of Medical Power of Slitter And Rewinder gin February 14, 2024 6:00am History of Present Illness * Galilea Whitaker, COIL TAPER - 03/17/2018 12:26 PM EST Subjective: Patient [...] including OTC medications. in this encounter* Chery Saez, DO - 10/01/2018 9:15 AM EDT [...] file Gets together: Not on file Attends moravian service: Not on file Active member of [...] (36.8 C), temperature source Oral, height 5' 8, weight 77.1 kg (170 lb), SpO2 97 [...] file Gets together: Not on file Attends moravian service: Not on file Active member of [...] Blood pressure 119/79, pulse 62, height 5' 8, weight 76.5 kg (168 lb 11.2 oz), [...] DO documented in this encounter* Galilea Whitaker, MYLA - 02/26/2019 1:19 PM EST Subjective: Patient ID: Teresa Cash is a 43 y.o. female. HPI Ms. 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 She states she has no stress She does c/o issues with sleep and extreme exhaustion. Was seen by Dr. Saez and started on Vitamin B12 but has had minimal improvement.She relates that he sleep is off- often will wake at 3am andbe unable [...] made her sleep walk and do crazy things. She has been on Trazodone but the [...] file Gets together: Not on file Attends moravian service: Not on file Active member of [...] her feet- states working in yard in [place]- has tried lotion/diabetic formula, and thick lotions [...] file Gets together: Not on file Attends moravian service: Not on file Active member of [...] file Gets together: Not on file Attends moravian service: Not on file Active member of [...] Best Dentist: q6 months ENT: Dr. Al- [facility]- 02/28/20- Ortho: [place]: MINISTERIO Relates that she is doing well overall [...] scheduled for next month with GI in [place]- She denies CP/SOB, denies GÓMEZ/dizziness. Has occasional vertigo- [facility] felt this was likely meniere's and [...] file Gets together: Not on file Attends moravian service: Not on file Active member of [...] preventative needs and immunizations. labs today. 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 Chronic idiopathic constipation Comments: Worsened- establishing with GI in [place]- appt in May- discussed proper fluid needs- Vitamin D deficiency Comments: checking levels and will adjust plan as appropriate Orders: - Vitamin D, Total, 25-OH; Future Vitamin B12 deficiency Comments: checking levels and will adjust plan as appropriate Orders: - Vitamin B12; Future Tinnitus of both ears Comments: Established with Dr. Al in [place]- doing ok at this time- has mild hearing loss, not worsened. Right hip pain Comments: Establishing with ortho in [place] next week- ambulates without a problem Depression [...] file Gets together: Not on file Attends moravian service: Not on file Active member of [...] Tinnitus of both ears Chery Saez DO [address] [place] [address] Status Reason Specialty Diagnoses / Procedures Referred By Contact Referred To Contact Pending Review Central Scheduling Diagnoses Essential hypertension Procedures Ultrasound renal artery duplex, complete Chery Saez DO [address] [place] [address] Central Scheduling [address] [place] [address] Status Reason Specialty Diagnoses / Procedures Referred By Contact Referred To Contact Authorized Central Scheduling Diagnoses Essential hypertension Procedures Ultrasound renal artery duplex, complete Chery Saez, DO [address] [place] [address] Central Scheduling [address] [place] [address] Status Reason Specialty Diagnoses / Procedures Referred By Contact Referred To Contact Authorized Gastroenterology Diagnoses Screening for colon cancer Family history of GI tract cancer Galilea Whitaker CNP [address] [place] [address] Junito Garibay, DO [address] [address] Specialty Diagnoses / Procedures Referred By Contac t Referred To Contact Radiology Diagnoses Generalized abdominal pain Procedures US Abdomen Galilea Dominguez CNP [address] [place] [address] Referral ID Status Reason Start Date Expiration Date V isits Requested Visits Authorized [id number] Pending Review 09/24/2022 09/24/2023 1 1 Specialty Diagnoses / Procedures Referred By Rianna james Referred To Contact Rheumatology Diagnoses Fatigue, unspecified type Generalized hypermobility of joints Galilea Whitaker, COIL TAPER [address] [place] [address] Luisito Raymond MD [address] [address] Referral ID Status Reason Start Date Expiration Date Visits Requested Visits Authorized [id number] Authorized Specialty Services Required/Pat ient's Best Interest 11/19/2023 1 1 Discharge Instructions * Instructions* Robby Fermin, - 07/30/2018 Thank you for choosing to be seen in our Emergency Department. It has been our pleasure to take care of you and hope you were completely satisfied. We as medical senior resident care director take great pride in what we do [...] loved ones. Thank you again for choosing [facility]. Dr. Fermin and your [facility] ER Staff Please review regarding your visit: Please note that your blood pressure during this ER visit was above 120/80 mmHg. The [place] [employer] (AHA) defines a normal blood [...] review at your convenience for more information: [email or web address] * Attachments The following attachments cannot be sent through Care Everywhere. * Ovarian Cyst: Functional (Yoruba) documented in this encounter Chief Complaint and Reason for Visit Chief Complaint SORE THROAT/REQUEST STREP TEST vaginal pain/irritation Reason for Visit Acute pharyngitis Chief Complaint sinus infection/COVI D SCREENING Annual (HAT BLOCKER) Reason for Visit Acute sinusitis COVID-19 Adenomyosis Pelvic pain Encounter for routine gynecological examination Chief Complaint SCREENING Annual (HAT BLOCKER) head injury Reason for Visit Adenomyosis Pelvic pain Encounter for routine gynecological examination Chief Complaint SCREENING Annual (HAT BLOCKER) r/s from 01/06 VOMITING Reason for Visit [id number] Chief Complaint Admit Date Annual (HAT BLOCKER) January 27, 2024 8:27am SCREENING January 27, [...] 8:27am GOPAL (acute kidney injury) February 13 025 4:05am Flank pain February 14, 2024 4: 05am Proteinuria February 14, 2024 4: 05am Chief Complaint Admit Date HEADACHE, VERTIGO, NAUSEA October 10 2 025 9:16am Reason for Visit Admit Date Maxillary sinusitis October 10, 2024 9: 16am Migraine October 10, 2024 9: 16am Nausea October 10, 2024 9: 16am Chief Complaint Admit Date HEADACHE, VERTIGO, NAUSEA October 10 025 9:16am CHRONIC GASTRITIS November 29, 2024 8 [...] section and content) DATE CREATED AUTHOR 12/07/2017 [facility] DATE CREATED AUTHOR AUTHOR'S ORGANIZ ATION 05/09/2021 [facility] DATE CREATED AUTHOR AUTHOR'S ORGANIZ ATION 05/17/2021 [facility] DATE CREATED AUTHOR AUTHOR'S ORGANIZ ATION 06/27/2024 [facility] DATE CREATED AUTHOR AUTHOR'S ORGANIZ ATION 07/20/2024 [facility] DATE CREATED AUTHOR AUTHOR'S ORGANIZ ATION 07/27/2024 [facility] DATE CREATED AUTHOR AUTHOR'S ORGANIZ ATION 10/22/2024 [facility] DATE CREATED AUTHOR AUTHOR'S ORGANIZ ATION 11/13/2024 [facility] DATE CREATED AUTHOR AUTHOR'S ORGANIZ ATION 12/16/2024 [facility] DATE CREATED AUTHOR AUTHOR'S ORGANIZ ATION 12/24/2024 [facility] Reason for Visit (unrecogniz ed section and content) Reason Comments Pre-op Exam PAT-03/25/2018 Dr. Leah ulrich PSC Reason Comments Fatigue exausted, no energy x 4 weeks Diarrhea Emesis Reason Comments Follow-up Status Reason Specialty Diagnoses / Procedures Referred By Contact Referred To Contact Authorized Central Scheduling Diagnoses Essential hypertension Procedures Ultrasound renal artery duplex, complete Chery Saez, DO [address] [place] [address] Central Scheduling [address] [place] [address] Reason Comments Annual Exam fasting, fatigue off [...] HIGH COMPLEX [address] [place] [address] [place] [address] [facility] [place] [address] Referral ID Status Reason Start Date Expiration Date Visits Requested Visits Authorized [id number] Authorized Auto-Generat ed Referral 08/10/2022 02/09/2023 25 25 Reason Comments Annual Exam Hypertension Reason Comments Radio Gen RMP Specialty Diagnoses / Procedures Referred By Rianna james Referred To Contact XR IMAGING Diagnoses Benign joint hypermobility syndrome Pain in joint, multiple sites Procedures XR HAND GENERAL 3V PA/LAT/OBL BILATERAL RADEX HAND MINIMUM [address] [place] [address] [place] [address] [place] [address] Referral ID Status Reason Start Date Expiration Date V isits Requested Visits Authorized [id number] Closed Auto-Generate d Referral 01/08/2023 02/07/2024 1 [...] automaticall y based on patient selection in [employer]. Reason Comments Pre-op Exam Left hand Reason Comments Suture / Staple Removal Follow-up Reason Onset Date Comments Medication Refill 08/30/2024 Reason Comments Hypertension Herendeen, CHARISSA Decker-Amos - 07/30/2018 7:26 AM EDTTSaravanan vaca RN - 07/30/2018 7:17 AM EDT ED Notes (unrecognized secti on and content) ED PROVIDER NOTE [facility] NAME: Teresa Rico AGE: 42 y.o. : 1975 VISIT DATE: 07/30/2018 CSN: [id number] PCP: Galilea Whitaker CNP Chief Complaint Patient [...] file Gets together: Not on file Attends moravian service: Not on file Active member of [...] Colorless, Yellow Clarity, Urine Clear Clear Specific [place] 1.020 1.005 - 1.025 pH, Urine 5.0 [...] in stable condition. Follow-up Information 1. Galilea Whitaker, MYLA. Specialty: Nurse Practitioner Why: As needed [address] [place] [address] [place] [id number] 2. Your senior consumer insights consultant. Why: If symptoms worsen Contact information for [...] encounter ED Attestation Note - Robby Fermin - 07/30/2018 7:28 AM EDTTelephone Encounter - Bonnie Vazquez ZAIRA - 05/12/2020 3:55 PM EDT Miscellaneous Notes (unrecog nized section and content) I personally interviewed the patient. I personally examined the patient. I discussed the patient with DEVELOPMENTAL BEHAVIORAL PHYSICIAN/PA. I agree with the DEVELOPMENTAL BEHAVIORAL PHYSICIAN/PA treatment plan. I agree with the DEVELOPMENTAL BEHAVIORAL PHYSICIAN/PA plan of care. I agree with the DEVELOPMENTAL BEHAVIORAL PHYSICIAN/PA dispo as documented. The patient has been [...] Left ovarian cyst Dictation was done via [employer]. documented in this encounter Requested Prescriptions Pending Prescriptions Disp Refills olmesartan (BENICAR) 40 MG tablet 90 tablet 1 Sig: Take 1 (one) tablet (40 mg total) by mouth daily . Last OV: 04/2020 Has follow up scheduled for 10/2020 ----- Message from Amita Woodward sent at 05/12/2020 3:47 PM EDT ----- Regarding: rx refill Contact: YANCI Antonio [phone] MEDICATION REFILL REQUEST: PCP: Galilea Whitaker CNP [...] preferred pharmacy listed below? Yes Preferred pharmacies: [facility]/pharmacy #[id number] - [facility] [address] [address] [address] [facility] [phone] Pt Call Back Number Patient call back message sent to the primary care clinical pool. Amita Woodward documented in this encounter Care Teams (unrecognized sec tion and content) Automobile Rental Clerk Relationship Specialty Start Date End Date Galilea Whitaker, COIL TAPER PCP - General Nurse Practitioner 09/12/14 Galilea Whitaker, COIL TAPER [address] [place] [address] PCP - [place] Attributed Provider - MMO Commercial 05/11/19 Radha Mejias, DO [address] [address] [place] Attributed Provider - Internal Medicine Internal Medicine 02/06/16 Aminaat Caputo MD [address] [place] [address] [place] Attributed Provider - Family Medicine Family Medicine 01/15/16 Automobile Rental Clerk Relationship Specialty Start Date End Date Galilea Whitaker, COIL TAPER PCP - General Nurse Practitioner 09/12/14 Galilea Whitaker, COIL TAPER [address] [place] [address] PCP - [place] Attributed Provider - [employer] 05/11/19 Radha Mejias, DO [address] [address] [place] Attributed Provider - Internal Medicine Internal Medicine 02/06/16 Aminata Caputo MD [address] [place] [address] [place] Attributed Provider - Family Medicine Family Medicine 01/15/16 Automobile Rental Clerk Relationship Specialty Start Date End Date Galilea Whitaker, COIL TAPER [address] [place] [address] PCP - [place] Attributed Provider - [employer] Commercial 08/10/18 02/09/50 Galilea Whitaker, COIL TAPER [address] [place] [address] PCP - General Nurse Practitioner 05/15/21 Radha Mejias, DO [address] [facility] [address] [place] [address] [place] Attributed Provider - Internal Medicine Internal Medicine 02/06/16 Aminata Caputo MD [facility] [place] [address] [place] Attributed Provider - Family Medicine Family Medicine 01/15/16 Team Status: Active Member Role Status Dates GALILEA WHITAKER Primary Care Provider Active Team Status: Inactive Member Role Status Dates Dr. Yaa Chase MD Attending Provider Active SHERMAN CALERO Primary Care Provider Active Team Status: Inactive Member Role Status Dates SHERMAN CALERO Primary Care Provider Active Luis Schneider MD Emergency Provider Active Automobile Rental Clerk Relationship Specialty Start Date End Date Galilea Whitaker, MYLA [address] [place] [address] PCP - [place] Attributed Provider - [employer] Commercial 08/10/18 02/09/50 Galilea Whitaker, MYLA [address] [place] [address] PCP - General Nurse Practitioner 05/15/21 Radha Mejias, DO [address] [facility] [address] [place] [address] [place] Attributed Provider - Internal Medicine Internal Medicine 02/06/16 Aminata Caputo MD [address] [place] [address] [place] Attributed Provider - Family Medicine Family Medicine 01/15/16 Automobile Rental Clerk Relationship Specialty Start Date End Date Galilea Whitaker, MYLA [address] [place] [address] PCP - [place] Attributed Provider - [employer] 08/10/18 02/09/50 Galilea Whitaker, MYLA [address] [place] [address] PCP - General Nurse Practitioner 05/15/21 Automobile Rental Clerk Relationship Specialty Start Date End Date Galilea Whitaker, MYLA [address] [place] [address] PCP - [place] Attributed Provider - [employer] 08/10/18 02/09/50 Galilea Whitaker, MYLA [address] [place] [address] PCP - General Nurse Practitioner 05/15/21 Automobile Rental Clerk Relationship Specialty Start Date End Date Galilea Whitaker, MYLA [address] [place] [address] PCP - [place] Attributed Provider - [employer] 08/10/18 02/09/50 Galilea Whitaker, MYLA [address] [place] [address] PCP - General Nurse Practitioner 05/15/21 Automobile Rental Clerk Relationship Specialty Start Date End Date Galilea Whitaker CNP [address] [place] [address] PCP - General Family Medicine 01/08/23 Galilea Whitaker, COIL TAPER [address] [place] [address] Referring Family Medicine 11/26/22 Automobile Rental Clerk Relationship Specialty Start Date End Date Galilea Whitaker, COIL TAPER [address] [place] [address] PCP - General Family Medicine 01/08/23 Galilea Whitaker, COIL TAPER [address] [place] [address] Referring Family Medicine 11/26/22 Automobile Rental Clerk Relationship Specialty Start Date End Date Galilea Whitaker, COIL TAPER [address] [place] [address] PCP - [place] [facility] Provider - MMO Commercial 08/10/18 02/09/50 Galilea Whitaker, COIL TAPER [address] [place] [address] PCP - General Nurse Practitioner 05/15/21 Team [...] Primary Care Physician Primary Care Provider Active Automobile Rental Clerk Relationship Specialty Start Date End Date Galilea Whitaker, MYLA [address] [place] [address] PCP - [place] Attributed Provider - [employer] 08/10/18 02/09/50 Galilea Whitaker, MYLA [address] [place] [address] PCP - General Nurse Practitioner 05/15/21 Automobile Rental Clerk Relationship Specialty Start Date End Date Galilea Whtiaker, MYLA [address] [place] [address] PCP - General Family Medicine 01/08/23 Galilea Whitaker, MYLA [address] [place] [address] Referring Family Medicine 11/26/22 Automobile Rental Clerk Relationship Specialty Start Date End Date Galilea Whitaker, MYLA [address] [place] [address] PCP - General Nurse Practitioner 05/15/21 Galilea Whitaker, MYLA [address] [place] [address] PCP - [place] Attributed Provider - [place] Commercial 07/12/23 02/09/50 Automobile Rental Clerk Relationship Specialty Start Date End Date Galilea Whitaker, MYLA [address] [place] [address] PCP - General Nurse Practitioner 05/15/21 Automobile Rental Clerk Relationship Specialty Start Date End Date Galilea Whitaker, MYLA [address] [place] [address] PCP - General Nurse Practitioner 05/15/21 Automobile Rental Clerk Relationship Specialty Start Date End Date Galilea Whitaker, COIL TAPER [address] [place] [address] PCP - General Family Medicine 01/08/23 Galilea Whitaker, COIL TAPER [address] [place] [address] Referring Family Medicine 11/26/22 Automobile Rental Clerk Relationship Specialty Start Date End Date Galilea Whitaker, MYLA [address] [place] [address] PCP - General Nurse Practitioner 05/15/21 Galilea Whitaker, MYLA [address] [place] [address] PCP - [place] Attributed Provider - [place] Commercial 01/11/24 02/09/50 Automobile Rental Clerk Relationship Specialty Start Date End Date Galilea Whitaker, MYLA [address] [place] [address] PCP - General Nurse Practitioner 05/15/21 Galilea Whitaker, MYLA [address] [place] [address] PCP - [place] Attributed Provider - [place] Commercial 01/11/24 02/09/50 Team Status: Active Member Role Status Dates Galilea Whitaker NP-C Primary Care Provider Activ e Team Status: Inactive Member Role Status Dates No Primary Care Physician Primary Care Provider Active Start: January 27, 2024 End: January 27, 2024 No Primary Care Physician Referring Provider Active Start: January 27, 2024 End: January 27, 2024 Mable Mckeon NP, DEVELOPMENTAL BEHAVIORAL PHYSICIAN-C Attending Provider Active Start: January 27, 2024 [...] Team Status: Inactive Member Role Status Dates JANI CASEY Attending Provider Active Start: May 12, 2024 End: May 12, 2024 JANI CASEY Referring Provider Active Start: May 12, 2024 End: May 12, 2024 Galilea Whitaker , DEVELOPMENTAL BEHAVIORAL PHYSICIAN-C Primary Care Provider Activ e Start: May 12, 2024 End: May 12, 2024 Automobile Rental Clerk Relationship Specialty Start Date End Date Galilea Whitaker CNP [address] [place] [address] PCP - General Nurse Practitioner 05/15/21 Automobile Rental Clerk Relationship Specialty Start Date End Date Galilea Whitaker CNP [address] [place] [address] PCP - General Nurse Practitioner 05/15/21 Automobile Rental Clerk Relationship Specialty Start Date End Date Galilea Whitaker CNP [address] [place] [address] PCP - General Nurse Practitioner 05/15/21 Automobile Rental Clerk Relationship Specialty Start Date End Date Galilea Whitaker, COIL TAPER [address] [place] [address] PCP - General Nurse Practitioner 05/15/21 Automobile Rental Clerk Relationship Specialty Start Date End Date Galilea Whitaker, MYLA [address] [place] [address] PCP - General Nurse Practitioner 05/15/21 Automobile Rental Clerk Relationship Specialty Start Date End Date Galilea Whitaker CNP [address] [place] [address] PCP - General Nurse Practitioner 05/15/21 Team Status: Active Member Role/Relationship Status Dates Galilea Whitaker NP-C Primary Care Provider Activ e Team Status: Inactive Member Role/Relationship Status Dates Galilea Whitaker DEVELOPMENTAL BEHAVIORAL PHYSICIAN-C Primary Care Provider Activ e Start: October 10, 2024 End: October 10, 2024 Galilea Whitaker DEVELOPMENTAL BEHAVIORAL PHYSICIAN-C Referring Provider Active Start: October 10, 2024 End: October 10, 2024 Richard Steele DEVELOPMENTAL BEHAVIORAL PHYSICIAN, DEVELOPMENTAL BEHAVIORAL PHYSICIAN-C Attending Provider Active S tart: October 10, 2024 End: October 10, 2024 Automobile Rental Clerk Relationship Specialty Start Date End Date Galilea Whitaker CNP [address] [place] [address] PCP - General Nurse Practitioner 05/15/21 Team Status: Active Member Role/Relationship Status Dates Galilea Whitaker NP-C Primary care physician Acti ve Team Status: Inactive Member Role/Relationship Status Dates Galilea Whitaker NP-C Primary care physician Acti ve Start: October 10, 2024 End: October 10, 2024 Galilea Whitaker DEVELOPMENTAL BEHAVIORAL PHYSICIAN-C Referring Provider Active Start: October 10, 2024 End: October 10, 2024 Richard Steele NP, DEVELOPMENTAL BEHAVIORAL PHYSICIAN-C Attending physician Active Start: October 10, 2024 End: October 10, 2024 Team Status: Inactive Member Role/Relationship Status Dates LAMAR Scales Primary care physician Acti ve Start: November 29, 2024 End: November 29, 2024 Galilea Whitaker NP-C Referring Provider Active Start: November 29, 2024 End: November 29, 2024 LAMAR Baez Attending physician Active Start: November 29, 2024 End: November 29, 2024 Team Status: Inactive Member Role/Relationship Status Dates Galilea Whitaker NP-Amos Primary care physician Acti ve Start: December 07, 2024 End: December 07, 2024 Paola Heath NP-Amos Attending physician Active Start: December 07, 2024 End: December 07, 2024 Paola Heath NP-C Referring Provider Active Start: December 07, 2024 End: December 07, 2024 Team Status: Active Member Role/Relationship Status Dates ALMAR Scales Primary care physician Acti ve Start: December 09, 2024 Paola Heath NP-Amos Attending physician Active Start: December 09, 2024 Paola Heath NP-Amos Referring Provider Active Start: December 09, 2024 Source Comments (unrecognize d section and content) In the event this informatio n is protected by the Federal Confidentiality of Alcohol and Drug Abuse Patient Records regulations: The Federal rules restrict any use of the information to criminally investigate or prosecute any alcohol or drug abuse patient.[facility] the event this information is protected by the Federal Confidentiality of Alcohol and Drug Abuse Patient Records regulations: The Federal rules restrict any use of the information to criminally investigate or prosecute any alcohol or drug abuse patient.[facility] the event this information is protected by the Federal Confidentiality of Alcohol and Drug Abuse Patient Records regulations: The Federal rules restrict any use of the information to criminally investigate or prosecute any alcohol or drug abuse patient.[facility] the event this information is protected by the Federal Confidentiality of Alcohol and Drug Abuse Patient Records regulations: The Federal rules restrict any use of the information to criminally investigate or prosecute any alcohol or drug abuse patient.[facility] Center[facility] the event this information is protected by the Federal Confidentiality of Alcohol and Drug Abuse Patient Records regulations: The Federal rules restrict any use of the information to criminally investigate or prosecute any alcohol or drug abuse patient.[facility] CenterIn the event this information is protected by the Federal Confidentiality of Alcohol and Drug Abuse Patient Records regulations: The Federal rules restrict any use of the information to criminally investigate or prosecute any alcohol or drug abuse patient.[facility] CenterIn the event this information is protected by the Federal Confidentiality of Alcohol and Drug Abuse Patient Records regulations: The Federal rules restrict any use of the information to criminally investigate or prosecute any alcohol or drug abuse patient.[facility] CenterIn the event this information is protected by the Federal Confidentiality of Alcohol and Drug Abuse Patient Records regulations: The Federal rules restrict any use of the information to criminally investigate or prosecute any alcohol or drug abuse patient.[facility] CenterIn the event this information is protected by the Federal Confidentiality of Alcohol and Drug Abuse Patient Records regulations: The Federal rules restrict any use of the information to criminally investigate or prosecute any alcohol or drug abuse patient.[facility] CenterIn the event this information is protected by the Federal Confidentiality of Alcohol and Drug Abuse Patient Records regulations: The Federal rules restrict any use of the information to criminally investigate or prosecute any alcohol or drug abuse patient.[facility] CenterIn the event this information is protected by the Federal Confidentiality of Alcohol and Drug Abuse Patient Records regulations: The Federal rules restrict any use of the information to criminally investigate or prosecute any alcohol or drug abuse patient.[facility] CenterIn the event this information is protected by the Federal Confidentiality of Alcohol and Drug Abuse Patient Records regulations: The Federal rules restrict any use of the information to criminally investigate or prosecute any alcohol or drug abuse patient.[facility] CenterIn the event this information is protected by the Federal Confidentiality of Alcohol and Drug Abuse Patient Records regulations: The Federal rules restrict any use of the information to criminally investigate or prosecute any alcohol or drug abuse patient.[facility] Goals (unrecognized section and content) Goals may [...] BE BASED ON THE PRIMARY CLINICAL RECORDS. [facility]. provides no warranty or guarantee of the accuracy or completeness of information in this document.
[2025-02-09 16:16] LABS: CREATININE FINGERSTICK < 1.0 mg/dL (0.55-1.02); EGFR FINGERSTICK > 60.0000 mL/min (>60)
== END | disposition home or self-care (01) ==
LOC: CT 15:50
PROVIDERS: PCP Nurse Practitioner Family; Referring Provider Nurse Practitioner Family; Visit Provider Nurse Practitioner Family
DX: R10.9 Unspecified abdominal pain (principal); R82.90 Unspecified abnormal findings in urine; R93.89 Abnormal findings on diagnostic imaging of other specified body structures
CPT/HCPCS: 74178; Q9967